=== PATIENT | female | born 1940 | race Caucasian/White ===

== ENCOUNTER → 2019-07-12 10:51 | Outpatient (BNVA) | payer MEDICARE, OTHER, SELFPAY | PROVIDERS: Family Provider Nurse Practitioner Family; PCP Nurse Practitioner Family; Visit Provider Family Medicine | DX: R05 Cough (principal) | CPT/HCPCS: 71046 ==

== ENCOUNTER 2019-08-05 12:16 | Emergency (ER) | payer MEDICARE, OTHER, SELFPAY ==
[2019-08-05 12:16] VITALS: BP 130/79; PULSE 91; RESP 15; TEMP 36.4; O2SAT 89; BMI 22.1
--- NOTE | 2019-08-05 12:29 | W.ED.FALL ---
HPI - Fall General: Chief Complaint: Fall Stated Complaint: Fall Time Seen by Provider: 08/05/19 12:29 History of Present Illness: HPI Narrative: 79 yo female fell at home no LOC. Pt does still have a headache. COmplaining of shoulder and elbow pain as well as neck pain. She did strike her head, but does not think she actually passed out but was stunned. complaint: fall Fall from: standing Associated symptoms-after fall: Denies abdominal pain or chest pain Review of Systems Const: Denies: fever, chills, body aches, change in appetite, fatigue or malaise ENMT: Denies: throat pain, ear pain, nasal discharge or nasal congestion Card: Denies: chest pain, edema, shortness of breath on exertion or shortness of breath when lying down Resp: Denies: shortness of breath, productive cough or non-productive cough GI: Denies: abdominal pain, nausea, vomiting, vomiting blood, coffee grounds in vomit, diarrhea, constipation, bloating, blood in stool or black tarry stool : Denies: flank pain, difficulty urinating, painful urination, urinary frequency or urinary urgency Skin/Breast: Denies: rash or itching PFSH ED PFSH: Statuses (acute, chronic, etc) shown below reflect problem list status as previously entered and may not be historically accurate Medical History Artificial cardiac pacemaker (Acute) COPD (chronic obstructive pulmonary disease) (Acute) Depression with anxiety (Acute) Diabetes (Acute) Essential hypertension, benign (Acute) H/O brain tumor (Acute) H/O reduction of closed fracture (Acute) left wrist 10/23/2015 Hyperlipidemia (Acute) Hypothyroidism (Acute) Lung nodule (Acute) Myasthenia (Acute) Myasthenia gravis with exacerbation, adult form (Acute) Neuropathy (Acute) Normal colonoscopy (Acute) 2013 Pacemaker (Acute) 04/05/2019 Vitamin B 12 deficiency (Acute) Vitamin D deficiency (Acute) Surgical History H/O brain surgery (Acute) 4 x H/O esophagogastroduodenoscopy (Acute) 2013 H/O thyroidectomy (Acute) History of hysterectomy for cancer (Acute) Hx of cholecystectomy (Acute) S/P appy (Acute) Family History Other Cancer Social History Smoking and tobacco status: former smoker Quit status (tobacco): has quit using tobacco Year quit tobacco: 2001 Alcohol intake: never Lives independently: Yes Marital status: / Current gender identity: Female Physical Exam Const: COMMON NORMALS: no apparent distress GENERAL APPEARANCE: cooperative and comfortable ORIENTATION/CONSCIOUSNESS: Yes awake, Yes oriented to person, Yes oriented to place and Yes oriented to time HENMT: COMMON NORMALS: normocephalic, head/scalp atraumatic, hearing grossly normal bilaterally, external ears normal, EAC's normal, TM's normal bilaterally, nasal mucous membranes and turbinates normal, moist oral mucous membranes and oropharynx normal HEAD & SCALP: normocephalic and atraumatic NOSE: nasal mucous membranes and turbinates normal EXTERNAL EAR: Yes external ears normal EXTERNAL AUDITORY CANAL: EAC's normal TYMPANIC MEMBRANE: TM's normal bilaterally Eye: COMMON NORMALS: PERRL, EOMs intact bilaterally, conjunctivae normal and no scleral icterus CONJUNCTIVA: Yes conjunctivae normal PUPIL: Yes PERRL Neck/C-Spine: COMMON NORMALS: full ROM, no lymphadenopathy, supple and no JVD Lymph: LYMPHATIC: no lymphadenopathy noted and no lymphedema noted Resp: COMMON NORMALS: normal respiratory effort, no retractions, no use of accessory muscles and clear to auscultation bilaterally AUSCULTATION: clear to auscultation bilaterally Cardio: COMMON NORMALS: no JVD, regular rate, regular rhythm and no murmurs RATE: regular rate RHYTHM: regular rhythm GI: COMMON NORMALS: soft to palpation and no hepatosplenomegaly AUSCULTATION: Yes normoactive bowel sounds PALPATION: Yes soft, No tender, No guarding and Yes no hepatosplenomegaly Extremity: COMMON NORMALS: normal to inspection, normal capillary refill, no clubbing, cyanosis or edema, no calf tenderness and no pedal edema Neuro: SENSORIUM/ORIENTATION: Yes oriented to person, Yes oriented to place and Yes oriented to time Skin: COMMON NORMALS: no rashes or lesions noted GENERAL SKIN EXAM: no rashes or lesions noted Course ED course: reveiwed xrays, advised tylenol, rest and ice as needed. Vital Signs: Vital signs: Vital Signs Temperature 97.6 F 08/05/19 12:16 Pulse Rate 73 08/05/19 14:56 Respiratory Rate 14 08/05/19 14:56 Blood Pressure 128/73 08/05/19 14:56 Pulse Oximetry 99 08/05/19 14:56 MDM - Fall Lab Data: Labs: Lab Results 08/05/19 08/05/19 08/05/19 Range/Units 12:49 12:49 14:01 WBC 13.1 H (4.0-10.0) 10^3/ uL RBC 4.75 (4.1-5.3) 10^6/u L Hgb 13.5 (11.5-15.3) g/dL Hct 42.2 (37.0-47.0) % MCV 88.8 (81-99) fL MCH 28.4 (28.0-34.0) pg MCHC 32.0 (30.0-36.0) g/dL RDW 13.4 (12.1-15.1) % Plt Count 214 (130-400) 10^3/c mm MPV 9.5 (7.4-10.4) fL Neut % (Auto) 38.2 % Lymph % (Auto) 52.8 % [place] % (Auto) 6.9 % Eos % (Auto) 1.6 % Baso % (Auto) 0.3 % Neut # (Auto) 5.0 (1.8-7.7) 10^3/u L Lymph # (Auto) 6.9 H (0.8-4.8) 10^3/u L [place] # (Auto) 0.9 (0.2-0.9) 10^3/u L Eos # (Auto) 0.2 (0.0-0.8) 10^3/u L Baso # (Auto) 0.0 (0.0-0.1) 10^3/u L Nucleated RBC % (a uto) 0 % Nucleated RBCs # 0.0 /100WBC Sodium 137 (136-145) mmol/L Potassium 4.8 (3.5-5.1) mmol/L Chloride 101 (98-107) mmol/L Carbon Dioxide 24 (22-29) mmol/L Anion Gap 16.8 (5-19) BUN 16 (8-23) mg/dL Creatinine 0.6 (0.5-0.9) mg/dL Glucose 130 H (74-106) mg/dL Calcium 9.6 (8.5-10.5) mg/dL Total Bilirubin 0.4 (0.15-1.2) mg/dL AST 22 (0-32) U/L ALT 25 (0-33) U/L Alkaline Phosphata se 73 (35-105) IU/L Total Protein 7.2 (6.6-8.7) g/dL Albumin 4.7 (3.5-5.2) g/dL Globulin 2.5 (1.3-4.6) g/dL Urine Color Yellow (Yellow) Urine Appearance Clear (CLEAR) Urine pH 5 (5-7) Ur Specific Gravit y 1.015 (1.005-1.030) Urine Protein Neg (Negative) Urine Glucose (UA) 4+ H (Normal) Urine Ketones Negative (Negative) Urine Occult Blood Neg (Negative) Urine Nitrate Negative (Negative) Urine Bilirubin Neg (NEGATIVE) Urine Urobilinogen Norm (Negative) mg/dL Ur Leukocyte Sofía ase Negative (Negative) Discharge Plan Discharge Patient Disposition: Home, Self-Care Clinical Impression: Fall Condition: Stable Prescriptions: No Action gabapentin 300 mg capsule 300 mg PO BID RF: 0 tolterodine [Detrol] 2 mg tablet 2 mg PO ONCE RF: 0 Invokana 300 mg tablet 300 mg PO QAM RF: 0 lisinopril 2.5 mg tablet 2.5 mg PO ONCE RF: 0 albuterol sulfate [Proventil HFA] 90 mcg/actuation HFA aerosol inhaler 2 puff INHALATION QID RF: 0 simvastatin 20 mg tablet 20 mg PO ONCE RF: 0 Levemir FlexTouch U-100 Insuln 100 unit/mL (3 mL) insulin pen 40 unit SUBCUT ONCE RF: 0 fluticasone propion-salmeterol [Advair Diskus] 250-50 mcg/dose blister with device 1 inh INHALATION BID RF: 0 fluticasone propionate [Flonase Allergy Relief] 50 mcg/actuation spray,suspension 2 spray INTRANASAL ONCE RF: 0 Victoza 2-Wilson 0.6 mg/0.1 mL (18 mg/3 mL) pen injector 1.2 mg SUBCUT Q24H RF: 0 lidocaine [Lidoderm] 5 % adhesive patch,medicated 1 patch TOPICAL .teto 12 hours RF: 0 furosemide 20 mg tablet 20 mg PO QAM PRN (Reason: edema) RF: 0 duloxetine 30 mg capsule,delayed release(DR/EC) 60 mg PO ONCE RF: 0 promethazine-DM 6.25-15 mg/5 mL syrup 5 ml PO Q6H Qty: 160 RF: 0 levofloxacin [Levaquin] 750 mg tablet 750 mg PO Q24H Qty: 10 RF: 0 (DME) Compact Compressor Nebulizer Misc See Rx Instructions .ROUTE .MEDSUPPLY Qty: 1 RF: 0 levothyroxine 100 mcg tablet 100 mcg PO DAILY Qty: 90 RF: 0 metformin 500 mg tablet 1,000 mg PO BID Qty: 180 RF: 0 (DME) Compact Compressor Nebulizer Misc See Rx Instructions .ROUTE .MEDSUPPLY Qty: 1 RF: 0 Discharge Orders: Discharge Order (Routine); Ordered 08/05/19 Ordered By: Israel Garza Referrals: Tina Bowen APN [Primary Care Provider] - Discharge Diet: Usual diet Discharge Activity: Resume usual activity Discharge Date/Time: 08/05/19 14:57 Coding Level of Care Code ED Change Control Manager for Chg Fwd Exam Problem Focused
--- NOTE | 2019-08-05 12:31 | XRR_ITS ---
PROCEDURE INFORMATION: Exam: XR Cervical Spine, 2 or 3 Views Exam date and time: 08/05/2019 1:25 PM Age: 79 years old Clinical indication: Pain and injury or trauma; Fall; Initial encounter; Blunt trauma; Neck pain; Injury date: 08/05/19; Additional info: Fall, neck pain TECHNIQUE: Imaging protocol: XR of the cervical spine, 2 or 3 views. COMPARISON: CT Cervical Spine wo* [id number] 08/20/2015 3:18 PM FINDINGS: Vertebrae: The bones are diffusely osteopenic. The cervical vertebral bodies maintain overall height and alignment. Prior C1 through C3 laminectomies. The atlantodens interval is not widened. Disc space narrowing most prominently at C6-C7. There is multilevel bilateral facet arthropathy. No acute fracture. Soft tissues: No prevertebral soft tissue swelling. XR/XR cervical spine 3V* [id number] IMPRESSION: 1. No acute osseous abnormality. 2. Multilevel degenerative and postoperative changes.
--- NOTE | 2019-08-05 12:32 | CT_ITS ---
WS: [id number] CT HEAD NONCONTRAST HISTORY: fall TECHNIQUE: Contiguous axial imaging performed through the brain in 2.5 mm imaging. Bone and soft tiss ue windows. Sagittal and coronal reformats reviewed. All CT scans at [facility] use at ast one of these dose optimization techniques: automated exposure control; mA and/or kV adjustment pe r patient size (includes targeted exams where dose is matched to clinical indication); or iterative r econstruction. DLP: 802.41 mGy.cm COMPARISON: 03/19/2019 at 03/03/2019 No acute intracranial hemorrhage, midline shift or mass effect. No atrophy or prior infarcts or herniation. Mild chronic vascular ischemic disease. Increased densit y in the LEFT cerebellum is been present on prior studies and may represent some calcium. Ventricles: Normal size with no hydrocephalus. Patient has a known, long-standing and longus stability or to the bone formation involving the cranio cervical junction on the LEFT. Calcific or osseous density extends medially to abut the LEFT lateral upper cervical cord. Long-term stability with no progression. Paranasal sinuses: As visualized are clear. Mastoid air cells: Well pneumatized. Calvarium and scalp: No interval change. Soft tissue edema over the posterior RIGHT parietal bone. CT/CT head wo con* [id number] IMPRESSION: 1. No acute intracranial hemorrhage or edema. 2. Small amount of skeletal edema over the RIGHT parietal region. 3. Stable hypertrophic bone formation involving the LEFT craniocervical juncti on.
--- NOTE | 2019-08-05 12:38 | XRR_ITS ---
PROCEDURE INFORMATION: Exam: XR Left Elbow Exam date and time: 08/05/2019 1:25 PM Age: 79 years old Clinical indication: Pain and injury or trauma; Fall; Initial encounter; Blunt trauma (contusions or hematomas; Elbow; Left; Injury date: 08/05/19; Additional info: Fall pain TECHNIQUE: Imaging protocol: XR Left elbow. Views: 3 or more views. COMPARISON: No relevant prior studies available. FINDINGS: Limitations: The lateral view is not a true lateral view. Bones/joints: An acute fracture is not identified. There is slight deformity of the radial head which may be due to a prior, now healed fracture. No dislocation. Cannot exclude an anterior or posterior fat pad sign as the lateral view is not a true lateral view. Soft tissues: There is soft tissue calcification at the medial humeral epicondyle which can be due to prior soft tissue injury. XR/XR elbow LT min 3V* [id number] IMPRESSION: No acute fracture or dislocation identified. If the patient continues to have pain repeat radiographs with a true lateral view would be warranted.
--- NOTE | 2019-08-05 12:38 | XRR_ITS ---
PROCEDURE INFORMATION: Exam: XR Left Shoulder Exam date and time: 08/05/2019 1:25 PM Age: 79 years old Clinical indication: Pain and injury or trauma; Fall; Initial encounter; Blunt trauma (contusions or hematomas; Shoulder; Bilateral; Injury date: 08/05/19; Additional info: Fall pain TECHNIQUE: Imaging protocol: XR Left shoulder. Views: 2 or more views. COMPARISON: No relevant prior studies available. FINDINGS: Bones/joints: No acute fracture. No dislocation. There are old left rib fractures. Soft tissues: No acute soft tissue abnormality. XR/XR shoulder LT min 2V* [id number] IMPRESSION: No acute osseous abnormality.
--- NOTE | 2019-08-05 12:38 | XRR_ITS ---
PROCEDURE INFORMATION: Exam: XR Right Shoulder Exam date and time: 08/05/2019 1:25 PM Age: 79 years old Clinical indication: Pain and injury or trauma; Fall; Initial encounter; Blunt trauma (contusions or hematomas; Shoulder; Bilateral; Injury date: 08/05/19; Additional info: Fall pain TECHNIQUE: Imaging protocol: XR Right shoulder. Views: 2 or more views. COMPARISON: CR Shoulder 2+ views RIGHT* [id number] 08/20/2015 3:33 PM FINDINGS: Bones/joints: No acute fracture. No dislocation. Suspect an old, healed distal clavicular fracture. Soft tissues: No acute soft tissue abnormality. XR/XR shoulder RT min 2V* [id number] IMPRESSION: No acute osseous abnormality.
[2019-08-05 13:01] LABS: Basophils % 0.3 %; Eosinophils # 0.2 10^3/uL (0.0-0.8); Eosinophils % 1.6 %; Hematocrit 42.2 % (37.0-47.0); Hemoglobin 13.5 g/dL (11.5-15.3); Lymphocytes # 6.9 10^3/uL (0.8-4.8); Lymphocytes % 52.8 %; Mean Corpuscular Hemoglobin 28.4 pg (28.0-34.0); Mean Corpuscular Volume 88.8 fL (81-99); Mean Platelet Volume 9.5 fL (7.4-10.4); Monocytes # 0.9 10^3/uL (0.2-0.9); Monocytes % 6.9 %; Neutrophils % 38.2 %; Nucleated Red Blood Cells % 0 %; Platelet Count 214 10^3/cmm (130-400); Red Blood Count 4.75 10^6/uL (4.1-5.3); Red Cell Distribution Width 13.4 % (12.1-15.1); White Blood Count 13.1 10^3/uL (4.0-10.0)
[2019-08-05 13:13] LABS: Alanine Aminotransferase 25 U/L (0-33); Albumin Level 4.7 g/dL (3.5-5.2); Alkaline Phosphatase 73 IU/L (35-105); Anion Gap 16.8 (5-19); Aspartate Amino Transferase 22 U/L (0-32); Blood Urea Nitrogen 16 mg/dL (8-23); Calcium 9.6 mg/dL (8.5-10.5); Carbon Dioxide 24 mmol/L (22-29); Chloride 101 mmol/L (98-107); Globulin 2.5 g/dL (1.3-4.6); Glucose 130 mg/dL (74-106); Potassium 4.8 mmol/L (3.5-5.1); Sodium 137 mmol/L (136-145); Total Bilirubin 0.4 mg/dL (0.15-1.2); Total Protein 7.2 g/dL (6.6-8.7)
--- NOTE | 2019-08-05 13:31 | CT_ITS ---
WS: [id number] CT CERVICAL SPINE HISTORY: neck pain TECHNIQUE: Contiguous 2.5 mm axial imaging performed through the entire cervical spine. Sagittal and coronal reformats also performed. All CT scans at [facility] use at least one of these do se optimization techniques: automated exposure control; mA and/or kV adjustment per patient size (inc ludes targeted exams where dose is matched to clinical indication); or iterative reconstruction. DLP: 352.01 mGy.cm COMPARISON: 08/20/2015 No change in appearance of the vertebral bodies or alignment since the prior study. Advanced degenera tive changes in the disc of C6-7. Craniocervical junction is intact. Again noted is a large laminecto my defect on the LEFT at C1, C2 and C3 with fusion. The distribution of the osseous fusion is simila r to the prior study. There is mild mass effect upon the LEFT lateral brainstem by the fusion. Mild i nferior displacement of cerebellar tonsils. Similar to the prior studies. Vertebral body osteophytes and facet arthropathy throughout the cervical spine. No significant progre ssion of disease. No fractures. Lung apices are clear. CT/CT cervical spin wo con* [id number] IMPRESSION: 1. No cervical spine fracture. 2. Stable laminectomy defects on the LEFT from C1 through C3 and stable osseou s fusion. 3. Multilevel facet joint arthropathy and spondylosis.
[2019-08-05 13:32] LABS: Slide Review Slide Review Perform
[2019-08-05 14:21] LABS: Add Urine Microscopic? NO
[2019-08-05 14:30] LABS: Glucose Urine UA 4+ (Normal); Protein Urine Neg (Negative); Specific Gravity, Urine 1.015 (1.005-1.030); Urine Appearance Clear (CLEAR); Urine Color Yellow (Yellow); pH Urine 5 (5-7)
[2019-08-05 14:31] LABS: Bilirubin Urine Neg (NEGATIVE); Blood Urine Neg (Negative); Ketones Urine Negative (Negative); Leukocyte Esterase Urine Negative (Negative); Nitrate Urine Negative (Negative); Urobilinogen Urine Norm (Negative)
[2019-08-05 14:56] VITALS: BP 128/73; PULSE 73; RESP 14; O2SAT 99
== END 2019-08-05 14:57 | disposition home or self-care (01) ==
PROVIDERS: Emergency Provider Family Medicine; Family Provider Nurse Practitioner Family; PCP Nurse Practitioner Family
DX: M25.519 Pain in unspecified shoulder (principal); M25.529 Pain in unspecified elbow; M54.2 Cervicalgia; Z79.4 Long term (current) use of insulin; W19.XXXA Unspecified fall, initial encounter; Z95.0 Presence of cardiac pacemaker; J44.9 Chronic obstructive pulmonary disease, unspecified; I10 Essential (primary) hypertension; E78.5 Hyperlipidemia, unspecified; E03.9 Hypothyroidism, unspecified; E11.40 Type 2 diabetes mellitus with diabetic neuropathy, unspecified; Z87.891 Personal history of nicotine dependence
CPT/HCPCS: 36415; 70450; 72040; 72125; 73030; 73080; 80053; 81003; 85025; 99281

== ENCOUNTER → 2019-10-29 13:07 | Outpatient (BNVA) | payer MEDICARE, OTHER, SELFPAY | PROVIDERS: Family Provider Nurse Practitioner Family; PCP Nurse Practitioner Family; Visit Provider Nurse Practitioner Family | DX: E11.9 Type 2 diabetes mellitus without complications (principal); E53.8 Deficiency of other specified B group vitamins; E55.9 Vitamin D deficiency, unspecified; E03.9 Hypothyroidism, unspecified; G62.9 Polyneuropathy, unspecified; I10 Essential (primary) hypertension; F41.8 Other specified anxiety disorders; J44.9 Chronic obstructive pulmonary disease, unspecified; R25.2 Cramp and spasm; E78.2 Mixed hyperlipidemia | CPT/HCPCS: 80053; 80061; 82306; 82607; 83036; 83735; 84443; 85025 ==

== ENCOUNTER → 2019-11-26 17:29 | Outpatient (BNVA) | payer MEDICARE, OTHER, SELFPAY | PROVIDERS: Family Provider Nurse Practitioner Family; PCP Nurse Practitioner Family; Visit Provider Nurse Practitioner Family | DX: M25.552 Pain in left hip (principal); M54.5 Low back pain | CPT/HCPCS: 80053; 85651; 86038; 86140; 86431 ==

== ENCOUNTER → 2019-11-27 14:28 | Outpatient (BNVA) | payer MEDICARE, OTHER, SELFPAY | PROVIDERS: Family Provider Nurse Practitioner Family; PCP Nurse Practitioner Family; Visit Provider Nurse Practitioner Family | DX: M25.552 Pain in left hip (principal); M54.5 Low back pain; M85.88 Other specified disorders of bone density and structure, other site; N20.0 Calculus of kidney | CPT/HCPCS: 72100; 73502 ==

== ENCOUNTER → 2020-02-10 11:44 | Outpatient (BNVA) | payer MEDICARE, OTHER, SELFPAY | PROVIDERS: Family Provider Nurse Practitioner Family; PCP Nurse Practitioner Family; Visit Provider Internal Medicine Medical Oncology | DX: D72.820 Lymphocytosis (symptomatic) (principal) | CPT/HCPCS: 80053; 83615; 85007; 85025 ==

== ENCOUNTER 2020-02-12 14:53 | Outpatient (CLI) | payer MEDICARE, OTHER, SELFPAY ==
--- NOTE | 2020-02-12 16:20 | XRR_ITS ---
PROCEDURE INFORMATION: Exam: XR Abdomen, 2 Views Exam date and time: 02/12/2020 4:39 PM Age: 79 years old Clinical indication: Constipation; Abdominal pain; Generalized; Prior surgery; Surgery type: Gb, hyst, appy; Patient HX: HX of brain tumor, cervical cancer and thyroid cancer; Additional info: Left upper quandrant abdominal pain TECHNIQUE: Imaging protocol: XR of the abdomen. Views: 2 Views. COMPARISON: CR XR KUB [id number] 03/14/2017 12:29 PM FINDINGS: Gastrointestinal tract: There is nonspecific bowel gas pattern with some mildly dilated small bowel loops on the right side of the abdomen which could represent some mild ileus. There is a large amount of fecal material within the descending colon and rectum consistent with the history of constipation. Intraperitoneal space: No free air is identified. Organs: There are surgical clips in the right upper quadrant from cholecystectomy. Bones/joints: There are degenerative changes in the spine. XR/XR abdomen min 2V [id number] IMPRESSION: Findings most likely represent constipation and mild ileus.
--- NOTE | 2020-02-15 15:35 | ONC FU_ITS ---
Dr. Rendon Patient Follow-Up Note Patient: Felicitas Augustine Unit #: [id number]: 1940 Dicatated By: Satish Rendon M.D.Date of Visit:Feb 12, 2020 Onc Med Follow-up/Prog Note Chief Complaint: Chronic lymphocytic leukemia. History of Present Illness: This is a 79 year-old woman with chronic leukocytic leukemia. I had seen her initially on 05/02/2019 in regard to a persistent lymphocytosis. It had been noted during a hospitalization for syncope in March 2019. Her CBC at that time showed normal hemoglobin at 13.9 g with white blood cell count 14,000 and platelet count 233,000. The differential included 32% neutrophils, 59% lymphocytes, 6% monocytes, and 1% eosinophils. In reviewing her record in [facility], she was noted to have had at least a slight lymphocytosis dating as far back as 2013. Her evaluation in April 2019 included CBC showing hemoglobin 13.9 g with white blood cell count 13,600 and platelet count 218,000. The absolute lymphocyte count was 8200. Her comprehensive metabolic profile was unremarkable. LDH was in normal range at 201 U/L. Her whole blood flow cytometry showed a monotypic B-cell population which was positive for CD19, CD20, and CD5 and negative for CD10 and CD23. The phenotype was felt to be consistent with chronic lymphocytic leukemia/small lymphocytic lymphoma. By clinical evaluation, she appeared to have early stage disease (Pickens stage 0), and observation/expectant management was recommended. 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 She has hyperlipidemia and type II diabetes with peripheral neuropathy, and she has undergone placement of a permanent pacemaker for cardiac syncope. She had been diagnosed with myasthenia gravis approximately 6 years ago, but that diagnosis had more recently been disputed. Other medical illnesses include COPD, vitamin B12 deficiency, and vitamin D deficiency. She also had a suspected TIA/stroke. She has a history of smoking for 30 years, less than 1 pack of cigarettes daily. She quit smoking in 1999. She is seen for a follow-up visit. She indicates that during the past week she has developed a lot of new pain, mostly in her feet in the metatarsal area. It is described as a burning pain, and it is worse at night. She also has pain and swelling in her hands around the knuckles and in her wrists. She complains that she is tired, and she sits a lot. She mostly gets around in a motorized wheelchair. She does try to use a walker. Her ECOG score is 3. Her appetite is not so good. She has not had fever or night sweats, but she does complain that she gets hot at night. 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 She has cough associated with phlegm in her throat. She does not complain of shortness of breath or chest pain. She has been having nausea and gas, and she also has acid reflux. She says her stomach has been hurting, especially in the left upper quadrant area. She has constipation and hard stools, though she has been taking senna and Dulcolax. She has frequent urination. She recently has had headaches. She has poor balance. She has numbness/tingling in her hands and feet. Medications: Advair Diskus 1 Puff(s) (of 250-50 mcg/dose) Aerosol Powder, Breath Activated Inhalation b.i.d., Albuterol Sulfate 1 Puff(s) (of 108 (90 base) mcg/act) Aerosol Powder, Breath Activated Inhalation PRN, Detrol 1 Tablet (of 2 mg) Oral daily, DULoxetine HCl 2 Capsule (of 30 mg) Capsule Delayed Release Particles Oral daily, Fiber 1 Powder Oral PRN, Flonase 2 [place](s) (of 50 mcg/act) Suspension Nasal daily, Furosemide 1 Tablet (of 20 mg) Oral daily PRN, Gabapentin 1 Capsule (of 300 mg) Oral b.i.d., Invokana 1 Tablet (of 300 mg) Oral daily, Levemir FlexTouch 40 Units (of 100 Units/mL) Subcutaneous daily, Levothyroxine Sodium 1 Tablet (of 100 mcg) Oral daily, Lidocaine 2 Patch(es) (of 5 %) Patch Topical daily, Lisinopril 1 Tablet (of 2.5 mg) Oral daily, MiraLax 1 Pack Oral PRN, Potassium Chloride ER (10 meq) Tablet, controlled release Oral Take as Directed, Proventil HFA 2 Puff(s) (of 108 (90 base) mcg/act) Aerosol, solution Inhalation four times a day, Simvastatin 1 Tablet (of 20 mg) Oral daily, Victoza 1 (18 mg/3mL) Subcutaneous daily Allergies: Pneumovax 23 and Sulfa Antibiotics. Review of Systems: Constitutional - She has been feeling tired. She gets around with a motorized wheelchair and she is mainly sedentary at home. Her son is her full-time caregiver. Her appetite has decreased and weight is stable. No fever or night sweats. She has occasional hot flashes at night. ECOG score is 3, ENMT - No sinus congestion/drainage. No mouth sores. No sore throat or difficulty swallowing. She says she has a paralyzed vocal cord, Hematologic/Lymphatic - She has a lot of bruising, Respiratory - No shortness of breath. She has cough associated with phlegm in her throat. No pleuritic pain or hemoptysis, Cardiovascular - No angina pain. No palpitations, Gastrointestinal - She has been having nausea for about one week. No vomiting. She has been having frequent belching. No heartburn or acid reflux. No diarrhea. She has been having constipation. No blood in the stool or black stools. She has been having abdominal pain/cramping, Genitourinary (F) - No dysuria or hematuria. She has urinary frequency both day and night. No urgency or incontinence, Musculoskeletal - She is having generalized joint pain, Integumentary - No skin complications, Neurologic - She has a headache. She has poor balance. She has numbness and tingling in her hands and feet, Psychiatric - She has anxiety/depression. She has not been sleeping well lately. Vital Signs: Performed on Feb 12, 2020 15:06 Height - 62.50 in Weight - lbs Temperature - 9.3 F (LOW) Pulse - 67 /min Respiration - 18 /min BP - 140/68 mm(hg) O2 Sat - 96 % Pain - 4 Physical Examination: Constitutional - She appears somewhat weak generally, Eyes - Sclerae nonicteric. Conjunctivae clear, ENMT - No lesions noted in the oral cavity, Hematologic/Lymphatic - No cervical, clavicular, or axillary adenopathy, Respiratory - Lungs sound clear with some decrease in air movement bilaterally, Cardiovascular - Heart rhythm is regular. There is no murmur, gallop, or rub noted, Abdomen - Mildly distended and tympanic. Liver and spleen are not enlarged. There is no abdominal mass or ascites noted and there is no inguinal adenopathy, Extremities - No edema. She has good dorsalis pedis pulses bilaterally, Neurologic - No focal neurologic deficits noted. Lab/Imaging: CBC shows hemoglobin 15.1 g, white blood cell count 17,500, and platelet count 210,000. The absolute lymphocyte count is 13,300. Comprehensive metabolic profile is unremarkable. LDH is slightly elevated at 223/214 U/L. Impression: 1. Patient with mild but persistent lymphocytosis. Whole blood flow cytometry in April 2019 was consistent with chronic lymphocytic leukemia /small lymphocytic lymphoma. By clinical evaluation she has early stage disease (Pickens stage 0). 2. She has had multiple chronic complaints, the most significant of which have been weakness/fatigue and double vision. She was previously diagnosed with myasthenia gravis, but that diagnosis had more recently been disputed. Her other medical illnesses include: 3. Hyperlipidemia. 4. Type II diabetes with peripheral neuropathy. 5. She has had suspected TIA/stroke. 6. COPD. 7. She had recently started replacement therapy for B12 deficiency. 8. She also has vitamin D deficiency. 9. She had multiple procedures for resection of brainstem meningioma in the remote past. 10. She underwent hysterectomy/bilateral salpingo-oophorectomy for cervical cancer. 11. She underwent total thyroidectomy for multiple papillary microcarcinomas in 2007. She had subsequent radioactive iodine ablation. 12. She underwent placement of permanent pacemaker for cardiac syncope on 04/05/2019. With early stage, asymptomatic chronic lymphocytic leukemia, observation/expectant management was recommended. Thus far during follow-up there has been only a slight further increase in her lymphocyte count. She continues to have multiple complaints, most of which are chronic. The chronic lymphocytic leukemia still appears to be in early stage and not overtly symptomatic. Plan: She will continue on observation/expectant management for the chronic lymphocytic leukemia. She will be scheduled for a follow-up visit in 6 months. In the meantime, I did suggest that she try increasing her senna/docusate to 2 tablets twice a day, I also suggested that she try increasing her bedtime dose of gabapentin, as it does appear likely that she is having neuropathy pain during the night. Signed By: Satish Rendon M.D. <<Signature on File>>
== END 2020-02-12 14:54 | disposition home or self-care (01) ==
LOC: ONCMED 14:58
PROVIDERS: PCP Nurse Practitioner Family; Visit Provider Internal Medicine Medical Oncology
DX: C91.10 Chronic lymphocytic leukemia of B-cell type not having achieved remission (principal); R10.12 Left upper quadrant pain; E11.40 Type 2 diabetes mellitus with diabetic neuropathy, unspecified; E78.5 Hyperlipidemia, unspecified; J44.9 Chronic obstructive pulmonary disease, unspecified; E55.9 Vitamin D deficiency, unspecified; E89.0 Postprocedural hypothyroidism; Z85.41 Personal history of malignant neoplasm of cervix uteri; Z90.710 Acquired absence of both cervix and uterus; Z90.722 Acquired absence of ovaries, bilateral; Z85.850 Personal history of malignant neoplasm of thyroid; Z95.0 Presence of cardiac pacemaker
CPT/HCPCS: 74019; G0463

== ENCOUNTER 2020-02-26 14:57 | Observation (INO) | payer MEDICARE, OTHER, SELFPAY ==
[2020-02-26 15:02] VITALS: BMI 24.4
[2020-02-26 15:06] VITALS: BP 130/69; PULSE 95; RESP 18; TEMP 36.6; O2SAT 98
--- NOTE | 2020-02-26 15:16 | CT_ITS ---
WS: [id number] CT HEAD NONCONTRAST HISTORY: cva SYMPTOMS TECHNIQUE: Contiguous axial imaging performed through the brain in 2.5 mm imaging. Bone and soft tiss ue windows. Sagittal and coronal reformats reviewed. All CT scans at [facility] use at ast one of these dose optimization techniques: automated exposure control; mA and/or kV adjustment pe r patient size (includes targeted exams where dose is matched to clinical indication); or iterative r econstruction. DLP: 1350.82 mGy.cm COMPARISON: 08/05/2019 No acute intracranial hemorrhage, midline shift or mass effect. Mild atrophy and chronic ischemic disease. Hypertrophic ossific process involving the LEFT occipital condyle encroaching upon the LEFT cerebellum and brainstem. Similar appearance as compared to prior studies. No progression. Ventricles: Normal size with no hydrocephalus. Paranasal sinuses: As visualized are clear. Mastoid air cells: Well pneumatized. Calvarium and scalp: Skull is intact with no soft tissue edema or swelling. CT/CT head wo con* [id number] IMPRESSION: 1. No acute intracranial hemorrhage or edema. 2. Stable hypertrophic bone formation centered near the LEFT occipital condyle encroaching upon the LEFT cerebellum and brainstem is similar to prior studies without progression. No acute interval change.
--- NOTE | 2020-02-26 15:16 | XR_ITS ---
WS: [id number] EXAM: AP CHEST: PORTABLE UPRIGHT DATE OF EXAM: 02/26/2020, 1543 hours COMPARISON: Chest x-ray from 07/12/2019 HISTORY: Patient is 79 years old with right-sided facial and head numbness. History of leukemia. Cardiac arrhy thmia with prior pacemaker placement. FINDINGS: The cardiac silhouette is normal in size. The mediastinal contours are similar. Calcified plaque i n the aorta. Left subclavian dual lead pacer remains in stable position. The pulmonary vascularity is normal. Chronic lung changes are demonstrated. Calcified granuloma outer upper mid right chest. S ome degree of fibrosis felt to be present. No area of consolidation. There is no effusion or pneumot horax. Overall bone density is decreased. Scattered changes of arthritis are seen in the spine. XR/XR chest 1V portable [id number] IMPRESSION: Chronic lung changes. No acute pulmonary disease.
--- NOTE | 2020-02-26 15:17 | ECG_ITS ---
[facility] Test Date: 2020-02-26 Pat Name: Felicitas Augustine Department: Room: Gender: Female Girl Friday: : 1940 Requested By: Jo Ann Calix Order Number: [id number] Karma MD: Gary Branch M.D. Measurements Intervals [place] Rate: 67 P: 106 IN: 183 QRS: -65 QRSD: 93 T: 70 QT: 406 QTc: 432 Interpretive Statements ELECTRONIC ATRIAL PACEMAKER LEFT AXIS DEVIATION [QRS AXIS < -30] LOW QRS VOLTAGE IN PRECORDIAL LEADS [QRS DEFLECTION < 1.0 mV IN CHEST LEADS] PATTERN CONSISTENT WITH PULMONARY DISEASE INCOMPLETE RIGHT BUNDLE BRANCH BLOCK [90+ ms QRS DURATION, TERMINAL R IN V1/V2, 40+ ms S IN I/aVL/V4/V5/V6] When compared to the prior EKG there is no significant change Electronically Signed On 02-26-2020 20:21:54 CDT by Gary Branch M.D. [id number]
--- NOTE | 2020-02-26 15:17 | W.ED.NEUROSD ---
HPI - Neuro Symptoms/Deficit General: Chief Complaint: Neuro Symptoms/Deficit Stated Complaint: headache/numbness/blurry vision Time Seen by Provider: 02/26/20 15:10 Source: patient Mode of arrival: ambulatory Limitations: no limitations History of Present Illness: HPI Narrative: Felicitas is a nice 79-year-old female who comes in complaining of head tingling. She states the tingling sensation was present upon awakening and then as the day is gone on she has had a strange sensation of the right side of her face and tongue. Patient states that the face and tongue sensation started about 10:00 with the tingling was present upon awakening. At one point the patient was also near syncopal. Patient has had a history of syncopal spells this time she did not pass out all the way. She denies any chest pain, shortness of breath, palpitations but does feel lightheaded and dizzy when she stands up quickly. Associated symptoms: Reports headache(s); Deny chest pain, diaphoresis, malaise, nausea, syncope, vertigo or vomiting Review of Systems Const: Denies: fever(s), chills, body aches, fatigue, malaise or diaphoresis Eyes: Denies: change in vision, blurry vision, photophobia, eye discomfort, eye discharge or eye redness ENMT: Denies: throat pain, odynophagia, hoarseness, swelling of lips/tongue, ear or mastoid pain, ear discharge, change in hearing or nasal discharge Card: Reports: pre-syncope; Denies: chest pain, palpitations, irregular heart rhythm, edema, lightheadedness, syncope, dyspnea on exertion or orthopnea Resp: Denies: dyspnea, productive cough, non-productive cough, wheezing, hemoptysis or chest congestion GI: Denies: abdominal pain, nausea, vomiting, hematemesis, coffee ground emesis, heartburn, diarrhea, constipation, GI cramping, hematochezia or melena : Denies: flank pain, dysuria, urinary frequency, urinary urgency or hematuria Musc: Denies: neck pain, back pain, extremity pain, extremity swelling, joint pain, joint swelling, joint redness, joint warmth or joint stiffness Skin/Breast: Denies: rash, pruritus, erythema or skin tenderness Neuro: Reports: headache(s) and sensory changes; Denies: numbness in extremities, weakness in extremities, lack of coordination, difficulty walking, dizziness, vertigo, confusion, Slurred speech present or seizure-like activity [place]/Lymph: Denies: easy bruising, easy bleeding, petechiae, purpura or enlarged lymph nodes All/Imm: Denies: urticaria, throat swelling, tongue swelling, facial swelling or acute wheezing PFSH ED PFSH: Medical History Artificial cardiac pacemaker COPD (chronic obstructive pulmonary disease) Depression with anxiety Diabetes Essential hypertension, benign H/O brain tumor H/O reduction of closed fracture left wrist 10/23/2015 Hyperlipidemia Hypothyroidism Leg swelling Lung nodule Myasthenia Myasthenia gravis with exacerbation, adult form Neuropathy Normal colonoscopy 2013 Pacemaker 04/05/2019 Vitamin B 12 deficiency Vitamin D deficiency Surgical History H/O brain surgery 4 x H/O esophagogastroduodenoscopy 2013 H/O thyroidectomy History of hysterectomy for cancer Hx of cholecystectomy S/P appy Family History Other Cancer Social History Smoking and tobacco status: former smoker Quit status (tobacco): has quit using tobacco Year quit tobacco: 2001 Alcohol intake: never Lives independently: Yes Marital status: / Current gender identity: Female NIH stroke score NIHSS: Level Of Consciousness - 1a: 0 Level Of Consciousness Questions - 1b: Both Correct Level Of Consciousness Commands - 1c: Both Correct Best Gaze - 2: Normal Visual Virk - 3: No Visual Loss Facial Palsy - 4: Normal Motor Arm Right - 5: Drift Motor Arm Left - 5: No Drift Motor Leg Right - 6: Drift Motor Leg Left - 6: No Drift Limb Ataxia - 7: Present In One Limb Sensory - 8: Mild To Moderate Loss Best Language - 9: No Aphasia Dysarthia - 10: Normal Extinction And Inattention - 11: 0 Score: Total Score: 4 Physical Exam Const: COMMON NORMALS: no acute distress, patient oriented x3, no limitations, healthy appearing and well nourished GENERAL APPEARANCE: cooperative, well kempt and well developed HENMT: COMMON NORMALS: normocephalic, atraumatic, external ears normal, EAC's normal and Normal external nose present HEAD & SCALP: normal to inspection, normocephalic and atraumatic FACE & SINUS: normal facial exam and face symmetric NOSE: Normal external nose present and Normal nares present EXTERNAL EAR: Yes external ears normal EXTERNAL AUDITORY CANAL: EAC's normal MOUTH: Normal oral and palatal mucosa present, lip normal and tongue normal Eye: COMMON NORMALS: Equal, round and reactive pupils present and conjunctivae normal GENERAL EYE: appearance normal, both eyes and all related structures ALIGNMENT: Yes alignment normal PERIORBITAL: periorbital findings normal EYELID: eyelids normal CONJUNCTIVA: Yes conjunctivae normal SCLERA: sclerae normal PUPIL: Yes Equal, round and reactive pupils present Neck/C-Spine: COMMON NORMALS: full ROM, no lymphadenopathy, supple, no meningeal signs and no JVD GENERAL: Yes normal visual inspection and Yes trachea midline Chest: COMMONS NORMALS: normal inspection of the chest and normal palpation of entire chest wall Resp: COMMON NORMALS: normal respiratory effort, No retractions, No use of accessory muscles and clear to auscultation bilaterally EFFORT & INSPECTION: Yes able to speak in complete sentences and Yes symmetric chest movement AUSCULTATION: clear to auscultation bilaterally, no crackles, no rales, no rhonchi and no wheezes Cardio: COMMON NORMALS: no JVD, regular rate, regular rhythm, S1 normal heart sound present and S2 normal heart sound present RATE: regular rate RHYTHM: regular rhythm HEART SOUNDS: S1 normal heart sound present, S2 normal heart sound present, no click, no gallops, no murmurs, no rubs and abnormal split S2 GI: COMMON NORMALS: Soft to palpation and No hepatosplenomegaly present PALPATION: Yes Soft to palpation, No Tenderness to palpation present (GI), No Guarding due to palpation present (GI), No Rigid due to palpation, Yes No hepatosplenomegaly present, No Hernia present, No Palpable mass present and No Pulsatile mass present : COMMON NORMALS: Yes no CVA tenderness BLADDER/KIDNEY EXAM: Yes no CVA tenderness EXTERNAL FEMALE EXAM: No Hernia present Back/Pelvis: COMMON NORMALS: no CVA tenderness, thoracic and lumbar spine normal to inspection, no thoracic nor lumbar tenderness and thoraco-lumbar ROM normal Extremity: COMMON NORMALS: normal to inspection, full ROM, capillary refill normal, no joint enlargement, no clubbing, cyanosis or edema and no calf tenderness Neuro: COMMON NORMALS: patient oriented x3, moves all extremities, no focal motor deficits and no sensory deficits noted MENINGEAL SIGNS: Yes no meningeal signs SPEECH: speech normal Psych: COMMON NORMALS: mental status grossly normal, Normal thought process present, cooperative, normal affect, speech normal and activity/motor behavior normal APPEARANCE: Yes well kempt SPEECH: Yes normal speech THOUGHT PROCESS: Normal thought process present Skin: COMMON NORMALS: no rashes or lesions noted, turgor normal, no jaundice, no petechiae and no mottling GENERAL SKIN EXAM: no rashes or lesions noted and turgor normal Course Vital Signs: Vital signs: Vital Signs Temperature 97.8 F 02/26/20 15:06 Pulse Rate 63 02/26/20 16:09 Respiratory Rate 18 02/26/20 15:06 Blood Pressure 135/87 02/26/20 16:09 Pulse Oximetry 98 02/26/20 15:06 MDM - Neuro Symptoms/Deficit MDM Narrative: Medical decision making narrative: The patient appears to have had a mild stroke with NIH of 4. She is also had this near syncopal episode. There is no sign of acute heart attack or stroke on CT. I reviewed the case with Dr. Robb who believes the patient should be admitted, well hydrated and receive MRI and MRA tomorrow. I reviewed this plan with Dr. Moe and she does agreement to do this. Lab Data: Attestation: I reviewed the patient's lab results. Labs: Lab Results 02/26/20 02/26/20 02/26/20 Range/Units 15:30 15:30 15:30 WBC 25.4 H (4.0-10.0) 10^3/ uL RBC 5.14 (4.1-5.3) 10^6/u L Hgb 14.9 (11.5-15.3) g/dL Hct 47.8 H (37.0-47.0) % MCV 93.0 (81-99) fL MCH 29.0 (28.0-34.0) pg MCHC 31.2 (30.0-36.0) g/dL RDW 13.1 (12.1-15.1) % Plt Count 199 (130-400) 10^3/c mm MPV 9.5 (7.4-10.4) fL Lymph % (Auto) Not Reportable [place] % (Auto) Not Reportable Lymph # (Auto) Not Reportable [place] # (Auto) Not Reportable Total Counted 100 (0-100) Atypical Lymphs % 25.0 H (0-5) % Absolute Neutrophi ls 3.6 (1.4-6.5) 10^3/c mm Segmented Neutroph ils 14 % Abs Segm Neuts (Ma n) 3.6 (1.6-7.1) 10/cmm Band Neutrophils 0.0 % Abs Band Neuts (Ma n) 0.0 (0.0-1.2) 10^3/c mm Absolute Lymphocyt es 21.1 H (1.2-3.4) 10^3/c mm Lymphocytes (Manua l) 58 % Monocytes (Manual) 2.0 % Absolute Monocytes 0.5 (0.1-0.6) 10^3/c mm Eosinophils (Man[place]) 1 % Absolute Eosinophi ls 0.2 (0.0-0.7) 10^3/c mm Platelet Estimate Normal (Normal) PT 12.60 (12.1-14.9) SECO NDS INR 0.91 (0.8-1.2) Sodium 138 (136-145) mmol/L Potassium 4.0 (3.5-5.1) mmol/L Chloride 103 (98-107) mmol/L Carbon Dioxide 22 (22-29) mmol/L Anion Gap 17.0 (5-19) BUN 12 (8-23) mg/dL Creatinine 0.7 (0.5-0.9) mg/dL GFR Calculation Not Reportable Glucose 96 (65-115) mg/dL Calculated Osmolal ity 282 L (285-295) mOsm/k g Calcium 9.4 (8.5-10.5) mg/dL Magnesium 2.5 H (1.7-2.3) mg/dL Total Bilirubin 0.5 (0.15-1.2) mg/dL AST 23 (0-32) U/L ALT 20 (0-33) U/L Alkaline Phosphata se 80 (35-105) IU/L Troponin T Baselin e (0-10) ng/L Total Protein 7.2 (6.6-8.7) g/dL Albumin 4.6 (3.5-5.2) g/dL Globulin 2.6 (1.3-4.6) g/dL 02/26/20 Range/Units 15:30 WBC (4.0-10.0) 10^3/ uL RBC (4.1-5.3) 10^6/u L Hgb (11.5-15.3) g/dL Hct (37.0-47.0) % MCV (81-99) fL MCH (28.0-34.0) pg MCHC (30.0-36.0) g/dL RDW (12.1-15.1) % Plt Count (130-400) 10^3/c mm MPV (7.4-10.4) fL Lymph % (Auto) [place] % (Auto) Lymph # (Auto) [place] # (Auto) Total Counted (0-100) Atypical Lymphs % (0-5) % Absolute Neutrophi ls (1.4-6.5) 10^3/c mm Segmented Neutroph ils % Abs Segm Neuts (Ma n) (1.6-7.1) 10/cmm Band Neutrophils % Abs Band Neuts (Ma n) (0.0-1.2) 10^3/c mm Absolute Lymphocyt es (1.2-3.4) 10^3/c mm Lymphocytes (Manua l) % Monocytes (Manual) % Absolute Monocytes (0.1-0.6) 10^3/c mm Eosinophils (Man[place] l) % Absolute Eosinophi ls (0.0-0.7) 10^3/c mm Platelet Estimate (Normal) PT (12.1-14.9) SECO NDS INR (0.8-1.2) Sodium (136-145) mmol/L Potassium (3.5-5.1) mmol/L Chloride (98-107) mmol/L Carbon Dioxide (22-29) mmol/L Anion Gap (5-19) BUN (8-23) mg/dL Creatinine (0.5-0.9) mg/dL GFR Calculation Glucose (65-115) mg/dL Calculated Osmolal ity (285-295) mOsm/k g Calcium (8.5-10.5) mg/dL Magnesium (1.7-2.3) mg/dL Total Bilirubin (0.15-1.2) mg/dL AST (0-32) U/L ALT (0-33) U/L Alkaline Phosphata se (35-105) IU/L Troponin T Baselin e 6 (0-10) ng/L Total Protein (6.6-8.7) g/dL Albumin (3.5-5.2) g/dL Globulin (1.3-4.6) g/dL Imaging Data^: CXR: Attestation: I personally reviewed and interpreted this imaging study as follows: My impression: No acute cardiopulmonary findings. CT Head: Radiologist's impression: [place] [address] CT Scan Report Signed Patient: Felicitas Augustine Unit #: [id number] : 1940 Age/Sex: 79 / F ADM Date: 02/26/20 Loc: ER Room/Bed: Attending Dr: Ordering Provider/Ordering MD: Jo Ann Reveles DO Date of Service: 02/26/20 Procedure(s): CT head wo con* [id number] Accession Number(s): [id number] Report Number: [id number] WS: [id number] CT HEAD NONCONTRAST HISTORY: cva SYMPTOMS TECHNIQUE: Contiguous axial imaging performed through the brain in 2.5 mm imaging. Bone and soft tissue windows. Sagittal and coronal reformats reviewed. All CT scans at [facility] use at least one of these dose optimization techniques: automated exposure control; mA and/or kV adjustment per patient size (includes targeted exams where dose is matched to clinical indication); or iterative reconstruction. DLP: 1350.82 mGy.cm COMPARISON: 08/05/2019 No acute intracranial hemorrhage, midline shift or mass effect. Mild atrophy and chronic ischemic disease. Hypertrophic ossific process involving the LEFT occipital condyle encroaching upon the LEFT cerebellum and brainstem. Similar appearance as compared to prior studies. No progression. Ventricles: Normal size with no hydrocephalus. Paranasal sinuses: As visualized are clear. Mastoid air cells: Well pneumatized. Calvarium and scalp: Skull is intact with no soft tissue edema or swelling. CT/CT head wo con* [id number] IMPRESSION: 1. No acute intracranial hemorrhage or edema. 2. Stable hypertrophic bone formation centered near the LEFT occipital condyle encroaching upon the LEFT cerebellum and brainstem is similar to prior studies without progression. No acute interval change. Dictated By: Annette Ladd DO Signed By: Annette Ladd DO Signed Date/Time: 02/26/20 1601 DD/ 1556 CTA Head and Neck: Radiologist's impression: [facility] [address] [place] [address] CT Scan Report Signed Patient: Felicitas Augustine Unit #: [id number] : 1940 Age/Sex: 79 / F ADM Date: 02/26/20 Loc: ER Room/Bed: Attending Dr: Ordering Provider/Ordering MD: Jo Ann Reveles DO Date of Service: 02/26/20 Procedure(s): CT angio headneck* [id number] Accession Number(s): [id number] Report Number: [id number] WS: [id number] CT ANGIOGRAM CEREBRAL AND CAROTID ARTERIES HISTORY: CVA SYMPTOMS TECHNIQUE: CT angiogram is performed of the carotid and cerebral arteries. During arterial injection imaging is obtained from the skull vertex to the aortic arch in 1.25 mm imaging. Coronal and sagittal reformats are submitted. Additional multi planar reformats of the carotid and cerebral arteries are submitted, MIP imaging also reviewed. NASCET criteria utilized. All CT scans at [facility] use at least one of these dose optimization techniques: automated exposure control; mA and/or kV adjustment per patient size (includes targeted exams where dose is matched to clinical indication); or iterative reconstruction. CONTRAST: Omnipaque 350; 95 mL IV. DLP: 1988.31 mGy.cm COMPARISON: 01/24/2015 Carotid Angiogram: Right carotid: Common carotid artery: Arises normally from the innominate artery. No significant plaque or stenosis. Internal carotid artery: Small amount of calcified plaque. The bifurcation is intact without significant stenosis. External carotid artery: Patent. Left carotid: Common carotid artery: Scattered plaque with no stenosis. Internal carotid artery: Scattered plaque with no stenosis. External carotid artery: Patent. Right vertebral artery: Unremarkable. Left vertebral artery: Small noncalcified plaque at the origin of the LEFT vertebral artery but no significant stenosis. Subclavian arteries: No stenosis. Aberrant RIGHT subclavian artery crosses posterior to the esophagus to the descending aorta. Upper thorax: Benign granuloma RIGHT upper lobe. Thyroid gland: Small caliber or absent thyroid. Osseous structures: Osteopenia and cervical spondylosis. CEREBRAL ANGIOGRAM: Intracranial vertebral arteries: Hypertrophic bone formation encroaching and partially obscuring the distal LEFT vertebral artery. Basilar artery: No significant stenosis or occlusion. No aneurysm. Intracranial Internal carotid arteries: Mild atherosclerosis. There is very mild narrowing of the RIGHT intracranial carotid artery with no significant stenosis. No aneurysms. Middle cerebral arteries: Normal. Anterior cerebral arteries and ACOM: Hypoplastic and small RIGHT A1 segment similar to the prior study. Posterior cerebral arteries and PCOM's: No stenosis. Hypoplastic LEFT P-comm. Dural venous sinuses are normally enhancing. Mastoid air cells: Normal. Paranasal sinuses: Normal. Calvarium: Normal. CT/CT angio headneck* [id number] IMPRESSION: 1. Mild atherosclerosis intracranial and extracranial carotid arteries with no significant stenosis. 2. 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 3. Aberrant RIGHT subclavian artery. 4. Moderate stenosis origin of the LEFT vertebral artery is unchanged. 5. Encroachment upon the distal LEFT vertebral artery by hypertrophic bone formation which has been previously described at the LEFT skull base, unchanged. Dictated By: Annette Ladd DO Signed By: Annette Ladd DO Signed Date/Time: 02/26/20 1610 DD/ 1601 EKG Data^: EKG 1: Attestation: I personally reviewed and interpreted this EKG as follows: EKG interpretation date: 02/26/20 EKG interpretation time: 15:19 Interpretation: Atrial paced rhythm at 67 beats a minute, PVC noted, incomplete right bundle branch block, nonspecific ST-T wave changes. Discharge Plan Discharge Patient Disposition: Placed in Observation Clinical Impression: CVA (cerebral vascular accident), Near syncope Condition: Stable Prescriptions: No Action lidocaine [Lidoderm] 5 % adhesive patch,medicated See Rx Instructions .ROUTE .COMPLEX RF: 0 Invokana 300 mg tablet 300 mg PO QAM Qty: 90 RF: 1 furosemide 20 mg tablet 20 mg PO QAM PRN (Reason: edema) Qty: 90 RF: 1 Victoza 2-Wilson 0.6 mg/0.1 mL (18 mg/3 mL) pen injector 1.2 mg SUBCUT Q24H 90 Days Qty: 18 RF: 1 metformin 500 mg tablet 1,000 mg PO BID 90 Days Qty: 360 RF: 1 Hold Instructions: Doctor's Order gabapentin 300 mg capsule 300 mg PO TID 90 Days Qty: 270 RF: 1 cyclobenzaprine 5 mg tablet 5 mg PO TID PRN (Reason: pain) Qty: 30 RF: 0 levothyroxine 88 mcg tablet 88 mcg PO DAILY Qty: 90 RF: 0 Proventil HFA 90 mcg/actuation HFA aerosol inhaler 2 puff INHALATION QID PRN (Reason: Shortness Of Breath) RF: 0 Airborne Gummy 250-11.66 mg Tablet,Chewable See Rx Instructions .ROUTE .COMPLEX RF: 0 Vitamin D3 See Rx Instructions .ROUTE .COMPLEX RF: 0 Detrol 2 mg tablet 2 mg PO DAILY RF: 0 simvastatin 20 mg tablet 20 mg PO DAILY RF: 0 Flonase Allergy Relief 50 mcg/actuation spray,suspension 2 spray INTRANASAL DAILY RF: 0 lisinopril 2.5 mg tablet 2.5 mg PO DAILY RF: 0 duloxetine 30 mg capsule,delayed release(DR/EC) 60 mg PO DAILY RF: 0 Levemir FlexTouch U-100 Insuln 100 unit/mL (3 mL) insulin pen 40 unit SUBCUT BEDTIME RF: 0 Referrals: Ida Stein FNP [Primary Care Provider] - Coding Level of Care Code ED [facility]ing [facility] for Chg Fwd Exam Comprehensive
[2020-02-26 15:36] LABS: Hematocrit 47.8 % (37.0-47.0); Hemoglobin 14.9 g/dL (11.5-15.3); Mean Corpuscular HGB Conc 31.2 g/dL (30.0-36.0); Mean Platelet Volume 9.5 fL (7.4-10.4); Platelet Count 199 10^3/cmm (130-400); Red Blood Count 5.14 10^6/uL (4.1-5.3); Red Cell Distribution Width 13.1 % (12.1-15.1); White Blood Count 25.4 10^3/uL (4.0-10.0)
[2020-02-26] MEDS: iohexol 350 mg/mL 100 mL Btl IV (15:46)
[2020-02-26 15:51] LABS: INR 0.91 (0.8-1.2)
[2020-02-26 15:57] LABS: Alanine Aminotransferase 20 U/L (0-33); Albumin Level 4.6 g/dL (3.5-5.2); Alkaline Phosphatase 80 IU/L (35-105); Aspartate Amino Transferase 23 U/L (0-32); Blood Urea Nitrogen 12 mg/dL (8-23); Calcium 9.4 mg/dL (8.5-10.5); Carbon Dioxide 22 mmol/L (22-29); Chloride 103 mmol/L (98-107); Globulin 2.6 g/dL (1.3-4.6); Glucose 96 mg/dL (65-115); Magnesium 2.5 mg/dL (1.7-2.3); Osmolality Calculated 282 mOsm/kg (285-295); Sodium 138 mmol/L (136-145); Total Bilirubin 0.5 mg/dL (0.15-1.2); Total Protein 7.2 g/dL (6.6-8.7); Troponin(5th) Baseline 6 ng/L (0-10)
[2020-02-26 16:03] LABS: Slide Review Slide Review Perform
[2020-02-26 16:09] VITALS: BP 132/67; BP 135/87; PULSE 63; PULSE 67
[2020-02-26 16:11] LABS: Absolute Eosinophils 0.2 10^3/cmm (0.0-0.7); Absolute Segmented Neutrophil 3.6 10/cmm (1.6-7.1); Eosinophils 1 %; Lymphocytes 58 %; Lymphocytes Absolute 21.1 10^3/cmm (1.2-3.4); Monocytes Absolute 0.5 10^3/cmm (0.1-0.6); Segmented Neutrophils 14 %; Total Cells Counted 100 (0-100)
[2020-02-26 16:15] LABS: Absolute Neutrophil 3.6 10^3/cmm (1.4-6.5); Platelet Estimate Normal (Normal)
[2020-02-26] MEDS: sodium chloride 0.9% 1,000 ML 999 ML IV (16:16)
--- NOTE | 2020-02-26 17:17 | ECG_ITS ---
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 Measurements Intervals [place] Rate: 64 P: 127 AR: 185 QRS: -74 QRSD: 91 T: 79 QT: 431 QTc: 446 Interpretive Statements ELECTRONIC ATRIAL PACEMAKER LEFT AXIS DEVIATION [QRS AXIS < -30] LOW QRS VOLTAGE IN PRECORDIAL LEADS [QRS DEFLECTION < 1.0 mV IN CHEST LEADS] POSSIBLE ANTERIOR MYOCARDIAL INFARCTION , PROBABLY OLD [30 ms Q WAVE IN V3/V4, OR R < 0.2 mV IN V4] ST ELEVATION, CONSIDER SEPTAL INJURY [MARKED ST ELEVATION W/O NORMALLY INFLECTED T WAVE IN V1/V2] ACUTE PA Compared to ECG 02/26/2020 15:19:08 Myocardial infarct finding now present Incomplete right bundle-branch block no longer present ST (T wave) deviation still present Electronically Signed On 02-26-2020 20:27:54 CDT by Gary Branch M.D. [id number]
[2020-02-26] MEDS: aspirin 325 mg Tablet PO (17:42)
--- NOTE | 2020-02-26 18:04 | PM.HP ---
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 Presented today with acute onset of waking up with R sided headache, numbness over right scalp and face, progressing to involve right side of tongue as well. Sensation described as numbness. No concomitant rash. No h/o shingles. No pain. Also c/o feeling of falling backwards with loss of balance. At a baseline she walks with walker with support. Has some feeling of offbalance but not significantly changed since baseline Review of Systems General: Reports: 10 or more systems reviewed and unremarkable except in HPI and below Const: Denies: fever(s), chills or body aches Eyes: Denies: change in vision, blurry vision or photophobia ENMT: Reports: hoarseness; Denies: throat pain, enlarged tonsils, odynophagia or nasal congestion Card: Denies: chest pain, palpitations, irregular heart rhythm, edema, swelling of feet/ankles, lightheadedness, pre-syncope, dyspnea on exertion or orthopnea Resp: Denies: dyspnea, productive cough, non-productive cough, wheezing, stridor, pain on inspiration, change in phlegm color, hemoptysis or chest congestion GI: Denies: abdominal pain, nausea, vomiting, hematemesis, coffee ground emesis, dysphagia, heartburn, diarrhea, constipation, GI cramping, change in stool character, hematochezia or melena : Denies: flank pain, difficulty voiding, dysuria, urinary frequency, urinary urgency, urinary hesitancy or hematuria Musc: Denies: neck pain, back pain, extremity pain, joint swelling, joint warmth or deformity Neuro: Denies: headache(s), numbness in extremities, weakness in extremities, sensory changes, difficulty walking, frequent falls, dizziness, vertigo, behavioral changes, Slurred speech present or seizure-like activity Psych: Denies: anxiety, depression, suicidal ideation or homicidal ideation Endo: Denies: polyuria, polydipsia, tired all the time, cold intolerance or hot flashes [place]/Lymph: Denies: easy bruising or easy bleeding Medications/Allergies Home Medications Medication Instructions Recorded Confirmed Last Taken Type lidocaine 5 % topical patch See Rx Instructions .ROUTE 07/12/19 02/26/20 02/25/20 History .COMPLEX each canagliflozin 300 mg tablet 300 mg PO QAM #90 tab 10/29/19 02/26/20 02/26/20 Rx furosemide 20 mg tablet 20 mg PO QAM PRN #90 tab 10/29/19 02/26/20 02/25/20 Rx liraglutide 0.6 mg/0.1 mL (18 mg/3 1.2 mg SUBCUT Q24H 90 Days #18 ml 10/29/19 02/26/20 02/26/20 Rx mL) subcutaneous pen injector metformin 500 mg tablet 1,000 mg PO BID 90 Days #360 tab 10/29/19 02/26/20 Unknown Rx levothyroxine 88 mcg tablet 88 mcg PO DAILY #90 tab 11/01/19 02/26/20 02/26/20 Rx cyclobenzaprine 5 mg tablet 5 mg PO TID PRN #30 tab 11/26/19 02/26/20 Unknown Rx gabapentin 300 mg capsule 300 mg PO TID 90 Days #270 cap 11/26/19 02/26/20 02/25/20 Rx Detrol 2 mg PO DAILY 02/26/20 02/26/20 02/26/20 History Flonase Allergy Relief 2 spray INTRANASAL DAILY 02/26/20 02/26/20 Unknown History Proventil HFA 2 puff INHALATION QID PRN 02/26/20 02/26/20 Unknown History Vitamin D3 See Rx Instructions .ROUTE .COMPLEX 02/26/20 02/26/20 Unknown History cyanocobalamin (vitamin B-12) See Rx Instructions .ROUTE .COMPLEX 02/26/20 02/26/20 Unknown History duloxetine 60 mg PO DAILY 02/26/20 02/26/20 02/25/20 History insulin detemir U-100 [Levemir 40 unit SUBCUT BEDTIME 02/26/20 02/26/20 02/25/20 History FlexTouch U-100 Insuln] lisinopril 2.5 mg PO DAILY 02/26/20 02/26/20 Unknown History [id number] C-herb no.124 See Rx Instructions .ROUTE .COMPLEX 02/26/20 02/26/20 Unknown History [Airborne Gummy] simvastatin 20 mg PO DAILY 02/26/20 02/26/20 02/26/20 History Allergies Allergy/AdvReac Type Severity Reaction Status Date / Time Sulfa (Sulfonamide Allergy RASH Verified 02/26/20 16:30 Antibiotics) PNEUMONIA VACCINE Allergy ALGY-Rash Uncoded 02/26/20 16:30 PFSH Acute PFSH: Medical History Artificial cardiac pacemaker COPD (chronic obstructive pulmonary disease) Depression with anxiety Diabetes Essential hypertension, benign H/O brain tumor H/O reduction of closed fracture left wrist 10/23/2015 Hyperlipidemia Hypothyroidism Leg swelling Lung nodule Myasthenia Myasthenia gravis with exacerbation, adult form Neuropathy Normal colonoscopy 2013 Pacemaker 04/05/2019 Vitamin B 12 deficiency Vitamin D deficiency Surgical History H/O brain surgery 4 x H/O esophagogastroduodenoscopy 2013 H/O thyroidectomy History of hysterectomy for cancer Hx of cholecystectomy S/P appy Family History Other Cancer Social History Smoking and tobacco status: former smoker Quit status (tobacco): has quit using tobacco Year quit tobacco: 2001 Alcohol intake: never Lives independently: Yes Marital status: / Current gender identity: Female Vitals/I&O/Wt Last Vital Signs Temp 97.8 F 02/26/20 15:06 Pulse 63 02/26/20 16:09 Resp 18 02/26/20 15:06 BP 135/87 02/26/20 16:09 Pulse Ox 98 02/26/20 15:06 02/26/20 02/26/20 02/26/20 06:59 14:59 22:59 Intake Total 1000 / 1000 Balance 1000 / 1000 Weight last 48 hrs Weight 62.596 kg Physical Exam Narrative: EXAM NARRATIVE: GEN: Awake, alert and oriented, no acute distress CVS: S1S2 N RS: CTA B/L Abd: Soft, nt/nd , bs+ QUARTZ MINER: no focal neuro deficits Data : 02/26/20 15:30 02/26/20 15:30 A&P Assessment and plan (1) CVA (cerebral vascular accident): Status: Acute Qualifiers: CVA mechanism: unspecified Qualified Code(s): I63.9 - Cerebral infarction, unspecified (2) Near syncope: Status: Acute (3) COPD (chronic obstructive pulmonary disease): Status: Acute (4) Artificial cardiac pacemaker: Status: Acute (5) Myasthenia gravis with exacerbation, adult form: Status: Acute (6) Hypothyroidism: Status: Acute Qualifiers: Hypothyroidism type: acquired Qualified Code(s): E03.9 - Hypothyroidism, unspecified (7) CLL (chronic lymphocytic leukemia): Status: Acute Additional A&P Information Admit to CSU in observation status CT head : no acute changes CTA neck: Moderate stenosis origin of the LEFT vertebral artery is unchanged. Encroachment upon the distal LEFT vertebral artery by hypertrophic bone formation which has been previously described at the LEFT skull base, unchanged. Plan for MRI/MRA tomorrow per ER discussion with Dr. Robb Out of tpa window recommend ASA + Plavix, however patient does not want to start plavix, states that she was on it the past, does not recall why she discontinued it, and is very reluctant and anxious to start this medication. [place] to trying asa 325mg daily atorvastatin 40mg po qd PPM interrogation to r/o arrhythmia echo 03/2019 Normal left ventricular cavity size, wall thickness and systolic function. Left ventricular ejection fraction is estimated at 63 %. No regional wall motion abnormalities. Normal diastolic function. No significant valvular abnormality. Full code DVt ppx: lovenox 30mg qd Attestations Medical Necessity Statement*: CVA/TIA management, anticipate less than 2 midnight Coding Level of Care Code Acute Power Technician for [facility] Fwd Diagnoses CVA (cerebral vascular accident) I63.9 CVA mechanism: unspecified Near syncope R55 COPD (chronic obstructive pulmonary disease) J44.9 Artificial cardiac pacemaker Z95.0 Myasthenia gravis with exacerbation, adult form G70.01 Hypothyroidism E03.9 Hypothyroidism type: acquired CLL (chronic lymphocytic leukemia) C91.10
[2020-02-26 19:10] VITALS: BP 124/74; PULSE 87; RESP 18; O2SAT 98
[2020-02-26 20:00] VITALS: BP 135/75; PULSE 83; RESP 18; TEMP 36.6; O2SAT 96
[2020-02-26 20:37] VITALS: PULSE 60; O2SAT 95
--- NOTE | 2020-02-26 20:43 | PC.RESP ---
Pt. states that she uses a nebulizer and an inhaler PRN when she feels SOB. Pt also states that she is on room air at home. Will continue to monitor Pt. she will notify nursing for her pulmonary concerns.
[2020-02-26] MEDS: sodium chloride 0.9% 1,000 ML 150 ML IV (21:35)
[2020-02-26 22:24] LABS: Glucose Urine UA 4+ (Normal); Ketones Urine Negative (Negative); Protein Urine Neg (Negative); Specific Gravity, Urine 1.015 (1.005-1.030); Urine Appearance Clear (CLEAR); Urine Color Yellow (Yellow); pH Urine 5 (5-7)
[2020-02-26 22:25] LABS: Bacteria Urine TRACE; Bilirubin Urine Neg (NEGATIVE); Blood Urine Neg (Negative); Leukocyte Esterase Urine Negative (Negative); Nitrate Urine Negative (Negative); RBC Urine RARE /hpf (0-2); Squamous Epithelial Cell Urine RARE (0-5); Urobilinogen Urine Norm (Negative); WBC Urine RARE /hpf (0-5)
[2020-02-26 22:35] LABS: Troponin 5 6HR 7.17 ng/L (0-10); Troponin 5 6HR Delta 1.17 ng/L (0-12)
[2020-02-26 23:25] VITALS: BP 132/72; PULSE 60; RESP 18; TEMP 36.4; O2SAT 97
[2020-02-27] VITALS (8 sets, daily range): BP systolic 117–133; BP diastolic 56–73; PULSE 58–82; RESP 16–23; TEMP 36.2–36.8; O2SAT 94–97
[2020-02-27] MEDS: acetaminophen 325 mg Tablet 650 MG PO (01:36)
[2020-02-27] MEDS: sodium chloride 0.9% 1,000 ML 150 ML IV (01:36)
--- NOTE | 2020-02-27 02:12 | PC.NURSE ---
late entry, pt arrived to floor, A&OX4, NS infusing to 18g L wrist IV at 150, denies pain or needs at this time, clwr
[2020-02-27 04:23] LABS: Basophils # 0.1 10^3/uL (0.0-0.1); Basophils % 0.3 %; Eosinophils # 0.2 10^3/uL (0.0-0.8); Eosinophils % 0.9 %; Hematocrit 41.9 % (37.0-47.0); Hemoglobin 12.9 g/dL (11.5-15.3); Lymphocytes # 18.2 10^3/uL (0.8-4.8); Lymphocytes % 77.5 %; Mean Corpuscular HGB Conc 30.8 g/dL (30.0-36.0); Mean Corpuscular Hemoglobin 29.1 pg (28.0-34.0); Mean Corpuscular Volume 94.6 fL (81-99); Monocytes # 1.6 10^3/uL (0.2-0.9); Monocytes % 6.8 %; Neutrophils # 3.38 10^3/uL (1.8-7.7); Neutrophils % 14.4 %; Nucleated Red Blood Cells % 0 %; Platelet Count 181 10^3/cmm (130-400); Red Blood Count 4.43 10^6/uL (4.1-5.3); Red Cell Distribution Width 13.1 % (12.1-15.1); White Blood Count 23.5 10^3/uL (4.0-10.0)
[2020-02-27 04:55] LABS: Alanine Aminotransferase 16 U/L (0-33); Albumin Level 3.8 g/dL (3.5-5.2); Alkaline Phosphatase 66 IU/L (35-105); Anion Gap 12.9 (5-19); Aspartate Amino Transferase 18 U/L (0-32); Blood Urea Nitrogen 12 mg/dL (8-23); Calcium 8.4 mg/dL (8.5-10.5); Carbon Dioxide 22 mmol/L (22-29); Chloride 111 mmol/L (98-107); Globulin 2.1 g/dL (1.3-4.6); Glucose 152 mg/dL (65-115); Osmolality Calculated 293 mOsm/kg (285-295); Potassium 3.9 mmol/L (3.5-5.1); Sodium 142 mmol/L (136-145); Total Bilirubin 0.3 mg/dL (0.15-1.2); Total Protein 5.9 g/dL (6.6-8.7)
[2020-02-27 05:50] LABS: Slide Review Slide Review Perform
--- NOTE | 2020-02-27 11:25 | PM.DCS ---
Discharge Providers Date of Admission: 02/26/20 16:45 Date of Discharge: February 27, 2020 Attending Provider at Admission: Puja Moe MD Attending Provider at Discharge: Puja Moe MD Primary Care Provider: RHETT Alarcon Diagnoses at Discharge Discharge Diagnosis (1) CVA (cerebral vascular accident): Status: Acute Qualifiers: CVA mechanism: unspecified Qualified Code(s): I63.9 - Cerebral infarction, unspecified (2) Near syncope: Status: Acute (3) COPD (chronic obstructive pulmonary disease): Status: Acute (4) Artificial cardiac pacemaker: Status: Acute (5) Myasthenia gravis with exacerbation, adult form: Status: Acute (6) Hypothyroidism: Status: Acute Qualifiers: Hypothyroidism type: acquired Qualified Code(s): E03.9 - Hypothyroidism, unspecified (7) CLL (chronic lymphocytic leukemia): Status: Acute Reason for Visit Reason for Visit: headache/numbness/blurry vision Hospital Course Discharge Summary: Felicitas Augustine is a 79 year old female with PMH CLL on expectant management, past h/o meningioma with compression of ICA left side, s/p resection and chemoradiation 30 years ago, 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 Presented with acute onset of waking up with R sided headache, numbness over right scalp and face, progressing to involve right side of tongue as well. Sensation described as numbness. No concomitant rash. No h/o shingles. Also c/o feeling of falling backwards with loss of balance. At a baseline she walks with walker with support. Has some feeling of offbalance but not significantly changed since baseline. In the ER her NIH stroke scale was noted to be 4. ER physician had discussed the case with Dr. Robb. Patient was out of the TPA window. It was recommended to start her on aspirin and Plavix. However patient is extremely hesitant to start on Plavix. She states that she was on aspirin and Plavix sometime in the past because of the history of 5 TIAs, however it was discontinued and she is unsure why. Moreover she states she has had a friend who due to bleeding from Plavix and is refusing this adamantly. Aspirin 81 mg dose has been increased to 325 mg p.o. daily in accordance. She is encouraged compliance with her simvastatin. CT of the head did not show any new acute strokes. CTA of the neck did not show any occlusive carotid disease. Some changes were noted on the left common carotid, however patient has a history of resection of meningioma that was abutting the carotid in the past and more likely to be residual changes from that time. MRI/MRA of the brain was planned, however we have been told by the MRI that her pacemaker is incompatible with getting this study. She feels much improved today. Her tongue numbness has resolved. Numbness over the side of her face is significantly improved as well, however she states that some paresthesia appears to exist along her right side of the scalp. Feeling of presyncope is also resolved today. She is being discharged in stable condition with increased aspirin dosing. Encouraged to follow-up with her primary care provider in the next 4 to 7 days. Her pacemaker was interrogated and no episodes of arrhythmia were noted. Physical Exam Narrative: EXAM NARRATIVE: GEN: Awake, alert and oriented, no acute distress CVS: S1S2 N RS: CTA B/L Abd: Soft, nt/nd , bs+ Discharge Data Data Completed and Pending: Completed Studies During Hospitalization Category Date Time Status CT angio headneck * [id number] Urge nt Cat Scan 02/26/20 15:[address] head wo con* 7 [id number] Stat Cat Scan 02/26/20 15:16 Completed XR chest 1V dahiana ble [id number] Stat Exams 02/26/20 15:16 Completed Pending at discharge Category Date Time Status Complete Blood Co unt w/Auto AM LABS Lab 02/28/20 04:00 Ordered Complete Blood Co unt w/Auto AM LABS Lab 02/29/20 04:00 Ordered Comprehensive Met abolic Panel AM LA BS Lab 02/28/20 04:00 Ordered Comprehensive Met abolic Panel AM LA BS Lab 02/29/20 04:00 Ordered Labs from last 24 hours 02/27/20 02/27/20 02/26/20 03:15 03:15 21:58 WBC 23.5 H RBC 4.43 Hgb 12.9 Hct 41.9 MCV 94.6 MCH 29.1 MCHC 30.8 RDW 13.1 Plt Count 181 MPV 10.0 Neut % (Auto) 14.4 Lymph % (Auto) 77.5 Andrew % (Auto) 6.8 Eos % (Auto) 0.9 Baso % (Auto) 0.3 Neut # (Auto) 3.38 Lymph # (Auto) 18.2 H Andrew # (Auto) 1.6 H Eos # (Auto) 0.2 Baso # (Auto) 0.1 Nucleated RBC % (a uto) 0 Total Counted Atypical Lymphs % Absolute Neutrophi ls Segmented Neutroph ils Abs Segm Neuts (Ma n) Band Neutrophils Abs Band Neuts (Ma n) Absolute Lymphocyt es Lymphocytes (Manua l) Monocytes (Manual) Absolute Monocytes Eosinophils (Manua l) Absolute Eosinophi ls Nucleated RBCs # 0.0 Platelet Estimate PT INR Sodium 142 Potassium 3.9 Chloride 111 H Carbon Dioxide 22 Anion Gap 12.9 BUN 12 Creatinine 0.8 GFR Calculation Not Reportable Glucose 152 H Calculated Osmolal ity 293 Calcium 8.4 L Magnesium Total Bilirubin 0.3 AST 18 ALT 16 Alkaline Phosphata se 66 Troponin T Baselin e Troponin T 120 Min [place] Troponin T Troponin T Hi Sens 6Hr 7.17 Troponin T Hi Sens 6Hr Delta 1.17 Total Protein 5.9 L Albumin 3.8 Globulin 2.1 Urine Color Urine Appearance Urine pH Ur Specific Gravit y Urine Protein Urine Glucose (UA) Urine Ketones Urine Blood Urine Nitrate Urine Bilirubin Urine Urobilinogen Ur Leukocyte Sofía ase Urine RBC Urine WBC Ur Squamous Epith Cells Amorphous Sediment Urine Bacteria 02/26/20 02/26/20 02/26/20 21:45 17:34 15:30 WBC RBC Hgb Hct MCV MCH MCHC RDW Plt Count MPV Neut % (Auto) Lymph % (Auto) Andrew % (Auto) Eos % (Auto) Baso % (Auto) Neut # (Auto) Lymph # (Auto) Andrew # (Auto) Eos # (Auto) Baso # (Auto) Nucleated RBC % (a uto) Total Counted Atypical Lymphs % Absolute Neutrophi ls Segmented Neutroph ils Abs Segm Neuts (Ma n) Band Neutrophils Abs Band Neuts (Ma n) Absolute Lymphocyt es Lymphocytes (Manua l) Monocytes (Manual) Absolute Monocytes Eosinophils (Manua l) Absolute Eosinophi ls Nucleated RBCs # Platelet Estimate PT INR Sodium Potassium Chloride Carbon Dioxide Anion Gap BUN Creatinine GFR Calculation Glucose Calculated Osmolal ity Calcium Magnesium Total Bilirubin AST ALT Alkaline Phosphata se Troponin T Baselin e 6 Troponin T 120 Min [place] Cancelled Delta Troponin T Cancelled Troponin T Hi Sens 6Hr Troponin T Hi Sens 6Hr Delta Total Protein Albumin Globulin Urine Color Yellow Urine Appearance Clear Urine pH 5 Ur Specific Gravit y 1.015 Urine Protein Neg Urine Glucose (UA) 4+ H Urine Ketones Negative Urine Blood Neg Urine Nitrate Negative Urine Bilirubin Neg Urine Urobilinogen Norm Ur Leukocyte Sofía ase Negative Urine RBC Rare Urine WBC Rare Ur Squamous Epith Cells Rare Amorphous Sediment Not Reportable Urine Bacteria Trace 02/26/20 02/26/20 02/26/20 15:30 15:30 15:30 WBC 25.4 H RBC 5.14 Hgb 14.9 Hct 47.8 H MCV 93.0 MCH 29.0 MCHC 31.2 RDW 13.1 Plt Count 199 MPV 9.5 Neut % (Auto) Lymph % (Auto) Not Reportable Andrew % (Auto) Not Reportable Eos % (Auto) Baso % (Auto) Neut # (Auto) Lymph # (Auto) Not Reportable Andrew # (Auto) Not Reportable Eos # (Auto) Baso # (Auto) Nucleated RBC % (a uto) Total Counted 100 Atypical Lymphs % 25.0 H Absolute Neutrophi ls 3.6 Segmented Neutroph ils 14 Abs Segm Neuts (Ma n) 3.6 Band Neutrophils 0.0 Abs Band Neuts (Ma n) 0.0 Absolute Lymphocyt es 21.1 H Lymphocytes (Manua l) 58 Monocytes (Manual) 2.0 Absolute Monocytes 0.5 Eosinophils (Manua l) 1 Absolute Eosinophi ls 0.2 Nucleated RBCs # Platelet Estimate Normal PT 12.60 INR 0.91 Sodium 138 Potassium 4.0 Chloride 103 Carbon Dioxide 22 Anion Gap 17.0 BUN 12 Creatinine 0.7 GFR Calculation Not Reportable Glucose 96 Calculated Osmolal ity 282 L Calcium 9.4 Magnesium 2.5 H Total Bilirubin 0.5 AST 23 ALT 20 Alkaline Phosphata se 80 Troponin T Baselin e Troponin T 120 Min [place] Troponin T Troponin T Hi Sens 6Hr Troponin T Hi Sens 6Hr [place] Total Protein 7.2 Albumin 4.6 Globulin 2.6 Urine Color Urine Appearance Urine pH Ur Specific Gravit y Urine Protein Urine Glucose (UA) Urine Ketones Urine Blood Urine Nitrate Urine Bilirubin Urine Urobilinogen Ur Leukocyte Sofía ase Urine RBC Urine WBC Ur Squamous Epith Cells Amorphous Sediment Urine Bacteria Vitals: Last Vital Signs Temp 97.2 F L 02/27/20 10:46 Pulse 75 02/27/20 10:46 Resp 20 H 02/27/20 10:46 BP 129/63 02/27/20 10:46 Pulse Ox 94 02/27/20 10:46 Discharge Plan Discharge Patient Disposition: Home Condition: Stable Prescriptions: New aspirin 325 mg tablet 325 mg PO DAILY Qty: 30 RF: 0 Continued lidocaine [Lidoderm] 5 % adhesive patch,medicated See Rx Instructions .ROUTE .COMPLEX RF: 0 Invokana 300 mg tablet 300 mg PO QAM Qty: 90 RF: 1 furosemide 20 mg tablet 20 mg PO QAM PRN (Reason: edema) Qty: 90 RF: 1 Victoza 2-Wilson 0.6 mg/0.1 mL (18 mg/3 mL) pen injector 1.2 mg SUBCUT Q24H 90 Days Qty: 18 RF: 1 metformin 500 mg tablet 1,000 mg PO BID 90 Days Qty: 360 RF: 1 Hold Instructions: Doctor's Order gabapentin 300 mg capsule 300 mg PO TID 90 Days Qty: 270 RF: 1 cyclobenzaprine 5 mg tablet 5 mg PO TID PRN (Reason: pain) Qty: 30 RF: 0 levothyroxine 88 mcg tablet 88 mcg PO DAILY Qty: 90 RF: 0 Proventil HFA 90 mcg/actuation HFA aerosol inhaler 2 puff INHALATION QID PRN (Reason: Shortness Of Breath) RF: 0 Airborne Gummy 250-11.66 mg Tablet,Chewable See Rx Instructions .ROUTE .COMPLEX RF: 0 Vitamin D3 See Rx Instructions .ROUTE .COMPLEX RF: 0 Detrol 2 mg tablet 2 mg PO DAILY RF: 0 simvastatin 20 mg tablet 20 mg PO DAILY RF: 0 Flonase Allergy Relief 50 mcg/actuation spray,suspension 2 spray INTRANASAL DAILY RF: 0 lisinopril 2.5 mg tablet 2.5 mg PO DAILY RF: 0 duloxetine 30 mg capsule,delayed release(DR/EC) 60 mg PO DAILY RF: 0 Levemir FlexTouch U-100 Insuln 100 unit/mL (3 mL) insulin pen 40 unit SUBCUT BEDTIME RF: 0 cyanocobalamin (vitamin B-12) See Rx Instructions .ROUTE .COMPLEX RF: 0 Discharge Orders: Discharge Order (Routine); Ordered 02/27/20 Ordered By: Puja Moe Referrals: Ida Stein FNP [Primary Care Provider] - 4-7 days (hospital discharge follow up ) Discharge Diet: Cardiac and Diabetic Discharge Activity: Resume usual activity, Use walker/crutches as instructed and As per PT/OT instructions Discharge Attestations Time Spent in Discharge Care*: less than 30 min Quality Metrics Clinical Quality Measures During this hospital stay, did patient experience: None Coding Level of Care Code Acute Community Youth Secretary for [facility] Fwd Diagnoses CVA (cerebral vascular accident) I63.9 CVA mechanism: unspecified Near syncope R55 COPD (chronic obstructive pulmonary disease) J44.9 Artificial cardiac pacemaker Z95.0 Myasthenia gravis with exacerbation, adult form G70.01 Hypothyroidism E03.9 Hypothyroidism type: acquired CLL (chronic lymphocytic leukemia) C91.10
[2020-02-27 11:37] LABS: Glucose Point of Care 141 mg/dL (70-110)
[2020-02-27] MEDS: aspirin 325 mg Tablet PO (13:13)
--- NOTE | 2020-02-27 16:15 | PC.NURSE ---
[employer] report of pacemaker interrogation reviewed by Dr. Moe. Patient cleared for dischagre.
--- NOTE | 2020-02-28 17:36 | PC.RESP ---
PULMONARY REHAB INFORMATION SENT TO PATIENT.
== END 2020-02-27 16:45 | disposition home or self-care (01) ==
LOC: ER 18:04 → CSU 18:15
PROVIDERS: Emergency Medicine; Admitting Provider Student in an Organized Health Care Education/Training Program; PCP Nurse Practitioner Family; Visit Provider Student in an Organized Health Care Education/Training Program
DX: I63.9 Cerebral infarction, unspecified (principal); R55 Syncope and collapse; J44.9 Chronic obstructive pulmonary disease, unspecified; G70.01 Myasthenia gravis with (acute) exacerbation; C91.10 Chronic lymphocytic leukemia of B-cell type not having achieved remission; Z95.0 Presence of cardiac pacemaker; E11.9 Type 2 diabetes mellitus without complications; I10 Essential (primary) hypertension; E78.5 Hyperlipidemia, unspecified; Z87.891 Personal history of nicotine dependence; R29.704 NIHSS score 4; Z79.4 Long term (current) use of insulin; E89.0 Postprocedural hypothyroidism
CPT/HCPCS: 12345; 36415; 36416; 70450; 70496; 70498; 71045; 80053; 81001; 82962; 83735; 84484; 85007; 85025; 85610; 92523; 92610; 93005; 96360; 96361; 97110; 97161; 97165; 99283; 99285; G0378; J7030; Q9967

== ENCOUNTER → 2020-03-04 11:19 | Outpatient (BNVA) | payer MEDICARE, OTHER, SELFPAY | PROVIDERS: PCP Nurse Practitioner Family; Visit Provider Nurse Practitioner Family | DX: E11.9 Type 2 diabetes mellitus without complications (principal); E55.9 Vitamin D deficiency, unspecified; E03.9 Hypothyroidism, unspecified; E78.2 Mixed hyperlipidemia; G70.00 Myasthenia gravis without (acute) exacerbation; G62.9 Polyneuropathy, unspecified; C91.10 Chronic lymphocytic leukemia of B-cell type not having achieved remission | CPT/HCPCS: 80061; 82306; 83036; 84443; 85025 ==

== ENCOUNTER → 2020-07-14 09:51 | Outpatient (BNVA) | payer MEDICARE, OTHER, SELFPAY | PROVIDERS: PCP Nurse Practitioner; Visit Provider Nurse Practitioner | DX: E11.9 Type 2 diabetes mellitus without complications (principal); E03.9 Hypothyroidism, unspecified; J44.9 Chronic obstructive pulmonary disease, unspecified | CPT/HCPCS: 80053; 80061; 81000; 83036; 84443; 85025 ==

== ENCOUNTER 2020-08-17 12:27 | Outpatient (CLI) | payer MEDICARE, OTHER, SELFPAY ==
[2020-08-17 13:05] LABS: Basophils # 0.1 10^3/uL (0.0-0.1); Basophils % 0.4 %; Eosinophils # 0.2 10^3/uL (0.0-0.8); Eosinophils % 0.7 %; Hematocrit 47.1 % (37.0-47.0); Hemoglobin 14.9 g/dL (11.5-15.3); Lymphocytes # 16.8 10^3/uL (0.8-4.8); Lymphocytes % 72.4 %; Mean Corpuscular HGB Conc 31.6 g/dL (30.0-36.0); Mean Corpuscular Hemoglobin 29.2 pg (28.0-34.0); Mean Corpuscular Volume 92.2 fL (81-99); Mean Platelet Volume 9.5 fL (7.4-10.4); Monocytes # 1.9 10^3/uL (0.2-0.9); Neutrophils # 4.23 10^3/uL (1.8-7.7); Neutrophils % 18.2 %; Nucleated Red Blood Cells % 0 %; Platelet Count 194 10^3/cmm (130-400); Red Blood Count 5.11 10^6/uL (4.1-5.3); Red Cell Distribution Width 12.9 % (12.1-15.1); White Blood Count 23.2 10^3/uL (4.0-10.0)
[2020-08-17 13:18] LABS: Alanine Aminotransferase 22 U/L (0-33); Albumin Level 4.5 g/dL (3.5-5.2); Alkaline Phosphatase 105 IU/L (35-105); Anion Gap 13.4 (5-19); Aspartate Amino Transferase 15 U/L (0-32); Blood Urea Nitrogen 15 mg/dL (8-23); Calcium 9.5 mg/dL (8.5-10.5); Carbon Dioxide 29 mmol/L (22-29); Chloride 103 mmol/L (98-107); Globulin 2.8 g/dL (1.3-4.6); Glucose 124 mg/dL (65-115); Lactate Dehydrogenase 200 U/L (135-214); Osmolality Calculated 294 mOsm/kg (285-295); Potassium 4.4 mmol/L (3.5-5.1); Sodium 141 mmol/L (136-145); Total Bilirubin 0.5 mg/dL (0.15-1.2); Total Protein 7.3 g/dL (6.6-8.7)
[2020-08-17 14:11] LABS: Slide Review Slide Review Perform
--- NOTE | 2020-08-18 06:52 | ONC FU_ITS ---
Dr. Rendon Patient Follow-Up Note Patient: Felicitas Augustine Unit #: [id number]: 1940 Dicatated By: Satish Rendon M.D.Date of Visit:Aug 17, 2020 Onc Med Follow-up/Prog Note Chief Complaint: Chronic lymphocytic leukemia. History of Present Illness: This is a 80 year-old woman with chronic leukocytic leukemia. I had seen her initially on 05/02/2019 in regard to a persistent lymphocytosis. It had been noted during a hospitalization for syncope in March 2019. Her CBC at that time showed normal hemoglobin at 13.9 g with white blood cell count 14,000 and platelet count 233,000. The differential included 32% neutrophils, 59% lymphocytes, 6% monocytes, and 1% eosinophils. In reviewing her record in [facility], she was noted to have had at least a slight lymphocytosis dating as far back as 2013. Her evaluation in April 2019 included CBC showing hemoglobin 13.9 g with white blood cell count 13,600 and platelet count 218,000. The absolute lymphocyte count was 8200. Her comprehensive metabolic profile was unremarkable. LDH was in normal range at 201 U/L. Her whole blood flow cytometry showed a monotypic B-cell population which was positive for CD19, CD20, and CD5 and negative for CD10 and CD23. The phenotype was felt to be consistent with chronic lymphocytic leukemia/small lymphocytic lymphoma. By clinical evaluation, she appeared to have early stage disease (Pickens stage 0), and observation/expectant management was recommended. 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 She has hyperlipidemia and type II diabetes with peripheral neuropathy, and she has undergone placement of a permanent pacemaker for cardiac syncope. She had been diagnosed with myasthenia gravis approximately 6 years ago, but that diagnosis had more recently been disputed. Other medical illnesses include COPD, vitamin B12 deficiency, and vitamin D deficiency. She also had a suspected TIA/stroke. She has a history of smoking for 30 years, less than 1 pack of cigarettes daily. She quit smoking in 1999. She is seen for a follow-up visit. She has been feeling okay, though she says that her meningioma may be back. Apparently there was abnormality noted in that same area on a recent MRI. She is being followed by a neurologist. She has started having headaches again, though at this point they are light. Her activity is limited due to problems with balance. She says she does not move around much. Her ECOG score is 2. She has good appetite. She has no fever or night sweats. She says her voice is sometimes raspy and she has to clear her throat. She otherwise does not have cough and she says her breathing has been okay lately. She does not complain of chest pain. She has been having some acid reflux. She has constipation, but bowel function has been adequate with senna. She has overactive bladder. She has generalized joint pain and recently she has been having more severe pain in both arms. She complains that her feet burn all night. Medications: Advair Diskus 1 Puff(s) (of 250-50 mcg/dose) Aerosol Powder, Breath Activated Inhalation b.i.d., Albuterol Sulfate 1 Puff(s) (of 108 (90 base) mcg/act) Aerosol Powder, Breath Activated Inhalation PRN, Detrol 1 Tablet (of 2 mg) Oral daily, Fiber 1 Powder Oral PRN, Flonase 2 Kendrick(s) (of 50 mcg/act) Suspension Nasal daily, Furosemide 1 Tablet (of 20 mg) Oral daily PRN, Invokana 1 Tablet (of 300 mg) Oral daily, Levemir FlexTouch 40 Units (of 100 Units/mL) Subcutaneous daily, Levothyroxine Sodium 1 Tablet (of 100 mcg) Oral daily, Lidocaine 2 Patch(es) (of 5 %) Patch Topical daily, Lisinopril 1 Tablet (of 2.5 mg) Oral daily, MiraLax 1 Pack Oral PRN, Potassium Chloride ER (10 meq) Tablet, controlled release Oral Take as Directed, Proventil HFA 2 Puff(s) (of 108 (90 base) mcg/act) Aerosol, solution Inhalation four times a day, Simvastatin 1 Tablet (of 20 mg) Oral daily, Victoza 1 (18 mg/3mL) Subcutaneous daily Allergies: Pneumovax 23 and Sulfa Antibiotics. Vital Signs: Performed on Aug 17, 2020 14:23 Height - 62.50 in Weight - 144 lbs (HIGH) BSA - 1.67 sq.m BMI - 25.92 Temperature - 97.7 F (LOW) Pulse - 98 /min Respiration - 18 /min BP - 139/81 mm(hg) O2 Sat - 95 % (LOW) Pain - 4 Fatigue - 0 Physical Examination: Constitutional - She looks pretty good generally, Eyes - Sclerae nonicteric. Conjunctivae clear, ENMT - No lesions noted in the oral cavity, Hematologic/Lymphatic - No cervical, clavicular, or axillary adenopathy, Respiratory - Lungs sound clear with some decrease in air movement bilaterally, Cardiovascular - Heart rhythm is regular. There is no murmur, gallop, or rub noted, Abdomen - Mildly distended. Liver and spleen are not enlarged. There is no abdominal mass or ascites noted and there is no inguinal adenopathy, Extremities - No edema, Neurologic - No focal neurologic deficits noted. Lab/Imaging: Test performed on Aug 17, 2020 12:39 LDH (Total) 200 U/L Sodium 141 mmol/L Potassium 4.4 mmol/L Chloride 103 mmol/L CO2 29 mmol/L Anion Gap 13.4 BUN 15 mg/dL Creatinine 0.6 mg/dL Cr Clearance (Est) 79.68 mL/min Glucose 124 mg/dL Osmolality - Calculated 294 mOsm/kg Calcium 9.5 mg/dL Protein, Total 7.3 g/dL Albumin 4.5 g/dL Globulin 2.8 g/dL Bilirubin, Total 0.5 mg/dL ALT (SGPT) 22 U/L AST (SGOT) 15 U/L Alkaline Phosphatase 105 IU/L WBC 23.2 10 3/uL RBC 5.11 10 6/uL HGB 14.9 g/dL HCT 47.1 % MCV 92.2 fL MCH 29.2 pg MCHC 31.6 g/dL RDW 12.9 % Platelet Count 194 10 3/cmm MPV 9.5 fL Neutrophils 4.23 10 3/uL Lymphocytes 16.8 10 3/uL Monocytes 1.9 10 3/uL Eosinophils 0.2 10 3/uL Basophils 0.1 10 3/uL Neutrophil % 18.2 % Lymphocyte % 72.4 % Monocyte % 8.0 % Eosinophil % 0.7 % Basophils % 0.4 % NRBC % 0 % CBC Slide Review Slide Review Perform REVIEW AGREES WITH AUTOMATED DIFF Problem List: 1. Chronic lymphocytic leukemia, Pickens stage 0. 2. She has had multiple chronic complaints, the most significant of which have been weakness/fatigue and double vision. She was previously diagnosed with myasthenia gravis. 3. She had previously undergone multiple surgeries and radiation for a brainstem meningioma and she now has suspected recurrence by MRI. She is being followed by a neurologist. 4. Hyperlipidemia. 5. Type II diabetes with peripheral neuropathy. 6. She has had suspected TIA/stroke. 7. COPD. 8. She had recently started replacement therapy for B12 deficiency. 9. She also has vitamin D deficiency. 10. She underwent hysterectomy/bilateral salpingo-oophorectomy for cervical cancer. 11. She underwent total thyroidectomy for multiple papillary microcarcinomas in 2007. She had subsequent radioactive iodine ablation. 12. She underwent placement of permanent pacemaker for cardiac syncope on 04/05/2019. Problems Addressed with this Encounter and Plan: 1. Chronic lymphocytic leukemia diagnosed by whole blood flow cytometry in April 2019. She had early stage disease (Pickens stage 0), and observation/expectant management was recommended. During follow-up she has had numerous complaints and she has had somewhat limited activity tolerance, but that all appears unrelated to the chronic lymphocytic leukemia. By clinical evaluation, she still appears to have early stage disease and she will just continue on observation/expectant management. I will see her again in 6 months. 2. She is having significant acid reflux symptoms for which she is currently not on medication. She will be given a prescription for omeprazole 20 mg daily, as it has been very effective for her in the past. Signed By: Satish Rendon M.D. <<Signature on File>>
== END 2020-08-17 12:28 | disposition home or self-care (01) ==
LOC: ONCMED 12:31
PROVIDERS: PCP Nurse Practitioner; Visit Provider Internal Medicine Medical Oncology
DX: C91.10 Chronic lymphocytic leukemia of B-cell type not having achieved remission (principal); G70.00 Myasthenia gravis without (acute) exacerbation; E78.5 Hyperlipidemia, unspecified; E11.42 Type 2 diabetes mellitus with diabetic polyneuropathy; J44.9 Chronic obstructive pulmonary disease, unspecified; D51.9 Vitamin B12 deficiency anemia, unspecified; E55.9 Vitamin D deficiency, unspecified; R55 Syncope and collapse; Z95.0 Presence of cardiac pacemaker; Z86.73 Personal history of transient ischemic attack (TIA), and cerebral infarction without residual deficits; Z90.710 Acquired absence of both cervix and uterus; Z85.41 Personal history of malignant neoplasm of cervix uteri; Z85.841 Personal history of malignant neoplasm of brain; Z79.899 Other long term (current) drug therapy
CPT/HCPCS: 36415; 80053; 83615; 85025; 99214

== ENCOUNTER → 2020-08-28 11:43 | Outpatient (BNVA) | payer MEDICARE, OTHER, SELFPAY | PROVIDERS: PCP Nurse Practitioner; Visit Provider Nurse Practitioner Family | DX: N39.0 Urinary tract infection, site not specified (principal); L03.115 Cellulitis of right lower limb; F17.211 Nicotine dependence, cigarettes, in remission | CPT/HCPCS: 81003; 87077; 87086; 87184 ==

== ENCOUNTER → 2020-09-29 11:13 | Outpatient (BNVA) | payer MEDICARE, OTHER, SELFPAY | PROVIDERS: PCP Nurse Practitioner; Visit Provider Nurse Practitioner | DX: E11.65 Type 2 diabetes mellitus with hyperglycemia (principal); Z79.4 Long term (current) use of insulin; R26.2 Difficulty in walking, not elsewhere classified | CPT/HCPCS: 80053; 82607; 83036 ==

== ENCOUNTER → 2020-12-30 10:24 | Outpatient (BNVA) | payer MEDICARE, OTHER, SELFPAY | PROVIDERS: PCP Nurse Practitioner; Visit Provider Nurse Practitioner | DX: E11.65 Type 2 diabetes mellitus with hyperglycemia (principal); Z79.4 Long term (current) use of insulin; E03.9 Hypothyroidism, unspecified; E55.9 Vitamin D deficiency, unspecified; E78.2 Mixed hyperlipidemia | CPT/HCPCS: 80053; 80061; 81000; 82306; 83036; 84443 ==

== ENCOUNTER → 2021-03-31 12:06 | Outpatient (BNVA) | payer MEDICARE, OTHER, SELFPAY | PROVIDERS: PCP Nurse Practitioner; Visit Provider Nurse Practitioner | DX: E11.65 Type 2 diabetes mellitus with hyperglycemia (principal); Z79.4 Long term (current) use of insulin; E55.9 Vitamin D deficiency, unspecified; J44.9 Chronic obstructive pulmonary disease, unspecified | CPT/HCPCS: 71046; 81003 ==

== ENCOUNTER → 2021-04-09 11:52 | Outpatient (BNVA) | payer MEDICARE, OTHER, SELFPAY | PROVIDERS: PCP Nurse Practitioner; Visit Provider Nurse Practitioner | DX: E11.65 Type 2 diabetes mellitus with hyperglycemia (principal); E55.9 Vitamin D deficiency, unspecified; J44.9 Chronic obstructive pulmonary disease, unspecified; Z79.4 Long term (current) use of insulin; N39.0 Urinary tract infection, site not specified; R26.2 Difficulty in walking, not elsewhere classified | CPT/HCPCS: 80053; 80061; 82306; 83036; 84443; 85025 ==

== ENCOUNTER → 2021-08-10 14:35 | Outpatient (BNVA) | payer MEDICARE, OTHER, SELFPAY | PROVIDERS: PCP Nurse Practitioner; Visit Provider Nurse Practitioner | DX: Z20.822 Contact with and (suspected) exposure to COVID-19 (principal) | CPT/HCPCS: 87635 ==

== ENCOUNTER → 2021-08-24 10:20 | Outpatient (BNVA) | payer MEDICARE, OTHER, SELFPAY | PROVIDERS: PCP Nurse Practitioner; Visit Provider Nurse Practitioner | DX: E11.65 Type 2 diabetes mellitus with hyperglycemia (principal); Z79.4 Long term (current) use of insulin; J44.9 Chronic obstructive pulmonary disease, unspecified; R10.12 Left upper quadrant pain | CPT/HCPCS: 80053; 81000; 82150; 83690; 83880; 84443 ==

== ENCOUNTER 2021-08-27 09:32 | Outpatient (CLI) | payer MEDICARE, OTHER, SELFPAY ==
[2021-08-27 09:55] LABS: Hematocrit 44.9 % (37.0-47.0); Hemoglobin 14.1 g/dL (11.5-15.3); Mean Corpuscular HGB Conc 31.4 g/dL (30.0-36.0); Mean Corpuscular Hemoglobin 29.8 pg (28.0-34.0); Mean Corpuscular Volume 94.9 fl (81-99); Mean Platelet Volume 9.3 fL (7.4-10.4); Platelet Count 177 10^3/cmm (130-400); Red Blood Count 4.73 10^6/uL (4.1-5.3); Red Cell Distribution Width 13.2 % (12.1-15.1)
[2021-08-27 10:21] LABS: Slide Review Slide Review Perform
[2021-08-27 10:23] LABS: White Blood Count 40.9 10^3/uL (4.0-10.0)
[2021-08-27 10:25] LABS: Absolute Neutrophil 4.1 10^3/cmm (1.4-6.5); Absolute Segmented Neutrophil 3.3 10/cmm (1.6-7.1); Band Neutrophils Absolute 0.8 10^3/cmm (0.0-1.2); Eosinophils 0 %; Lymphocytes 55 %; Lymphocytes Absolute 36.4 10^3/cmm (1.2-3.4); Monocytes Absolute 0.4 10^3/cmm (0.1-0.6); Platelet Estimate Normal (Normal); Segmented Neutrophils 8 %; Total Cells Counted 100 (0-100)
[2021-08-27 10:39] LABS: Estmated Average Glucose 137; Hemoglobin A1C 6.4 % (4.0-6.0)
== END 2021-08-27 09:33 | disposition home or self-care (01) ==
LOC: LAB 09:36
PROVIDERS: PCP Nurse Practitioner; Visit Provider Nurse Practitioner
DX: E11.65 Type 2 diabetes mellitus with hyperglycemia (principal); Z79.4 Long term (current) use of insulin
CPT/HCPCS: 36415; 83036; 85007; 85025

== ENCOUNTER 2021-10-06 09:24 | Outpatient (CLI) | payer MEDICARE, OTHER, SELFPAY ==
--- NOTE | 2021-10-06 | CT_ITS ---
WS: [id number] CT CHEST, ABDOMEN, AND PELVIS TECHNIQUE: Noncontrast CT of the chest, abdomen, and pelvis with coronal and sagittal reformatted byron ges. CLINICAL INFORMATION: J44.9 - Chronic obstructive pulmonary disease, unspecified COMPARISON: CT chest [address] abdomen pelvis 2013 DLP: 1149.[address] scans at [facility] use at least one of these dose optimization techniques: automated e xposure control; mA and/or kV adjustment per patient size (includes targeted exams where dose is matc hed to clinical indication); or iterative reconstruction. CT CHEST: Moderate chronic emphysematous changes. No acute pulmonary infiltrates. No focal pneumonia or pleural fluid. Prior LEFT thoracotomy. A few calcified granulomas. Fibrosis RIGHT middle lobe. Micronodular fibrotic infiltrate in LEFT upper lobe is unchanged since 2017. Tiny noncalcified subpleural nodule LEFT upper lobe. Aortic calcification. Normal caliber thoracic ao rta. Coronary calcification. No mediastinal or hilar lymphadenopathy. No axillary lymphadenopathy. CT ABDOMEN AND PELVIS: Mild hepatomegaly. Prior cholecystectomy. Normal noncontrast spleen with mild splenomegaly. Spleen me asures 11.2 cm [id number]. Normal GE junction. Adrenal glands are normal. Upper pole RIGHT renal lesion is enlarged compared to 2014 is not definite ly cystic. Recommend further evaluation with ultrasound. A few subcentimeter nonobstructing renal par enchymal calculi. No hydronephrosis in either kidney. Pelvic phleboliths. Fatty atrophy of the pancre as. Noncontrast pancreas appears normal. Normal caliber abdominal aorta. Mild aortic calcification. Normal sigmoid colon. Transverse colon constipation. No pelvic or inguinal lymphadenopathy. Slight anterolisthesis L4 on L5. Mild disc bulging L4-L5 and L 5-S1. CT/CT chest abd pel wo con IMPRESSION: 1. Moderate chronic emphysematous changes. No acute pulmonary infiltrates. 2. No new suspicious pulmonary parenchymal opacities. 3. No mediastinal or hilar lymphadenopathy. 4. Mild hepatomegaly and splenomegaly. 5. Indeterminate low-attenuation 11 mm lesion upper pole RIGHT kidney increase d compared to previous. This is not definitely cystic and recommend ultrasound for further evaluation. 6. Grade 1 anterolisthesis L4 on L5 with mild disc bulging L4-L5 and L5-S1. Th is is increased compared to 2014. 7. Previous described complex RIGHT adnexal mass not seen today. This may have been resected in the interim.
[2021-10-06] MEDS: iohexol 300 mg/mL 50 mL Btl PO (09:49)
== END 2021-10-06 09:25 | disposition home or self-care (01) ==
LOC: RAD 09:27
PROVIDERS: PCP Nurse Practitioner; Visit Provider Nurse Practitioner
DX: J44.9 Chronic obstructive pulmonary disease, unspecified (principal); R10.12 Left upper quadrant pain; R16.2 Hepatomegaly with splenomegaly, not elsewhere classified; N28.9 Disorder of kidney and ureter, unspecified
CPT/HCPCS: 71250; 74176

== ENCOUNTER → 2021-10-11 11:00 | Outpatient (BNVA) | payer MEDICARE, OTHER, SELFPAY | PROVIDERS: PCP Nurse Practitioner; Visit Provider Internal Medicine Cardiovascular Disease | DX: R07.9 Chest pain, unspecified (principal); I10 Essential (primary) hypertension; Z87.891 Personal history of nicotine dependence | CPT/HCPCS: 99214 ==

== ENCOUNTER → 2021-10-15 11:53 | Outpatient (BNVA) | payer MEDICARE, OTHER, SELFPAY | PROVIDERS: PCP Nurse Practitioner; Visit Provider Internal Medicine Cardiovascular Disease | DX: E11.65 Type 2 diabetes mellitus with hyperglycemia (principal); Z79.4 Long term (current) use of insulin; J44.9 Chronic obstructive pulmonary disease, unspecified; R06.02 Shortness of breath | CPT/HCPCS: 80048; 83880 ==

== ENCOUNTER 2021-10-19 08:04 | Outpatient (CLI) | payer MEDICARE, OTHER, SELFPAY ==
[2021-10-19 09:08] LABS: Hematocrit 43.6 % (37.0-47.0); Hemoglobin 14.3 g/dL (11.5-15.3); Mean Corpuscular HGB Conc 32.8 g/dL (30.0-36.0); Mean Corpuscular Hemoglobin 29.4 pg (28.0-34.0); Mean Corpuscular Volume 89.5 fl (81-99); Mean Platelet Volume 9.6 fL (7.4-10.4); Platelet Count 195 10^3/cmm (130-400); Red Blood Count 4.87 10^6/uL (4.1-5.3)
--- NOTE | 2021-10-19 09:14 | XRR_ITS ---
PROCEDURE INFORMATION: Exam: XR Abdomen Exam date and time: 10/19/2021 9:21 AM Age: 81 years old Clinical indication: Abdominal pain; Generalized; Additional info: R10.12 - left upper quadrant pain TECHNIQUE: Imaging protocol: XR of the abdomen. Views: Frontal supine view of the abdomen. 1 View. COMPARISON: CT chest abd pel wo con 10/06/2021 11:12 AM FINDINGS: Gastrointestinal tract: Normal. No bowel dilation. Evidence evidence of cholecystectomy is seen. The bowel gas pattern is nonspecific. Calcified densities seen in the left lower pelvis. Organs: Caliceal stones are present in the proximal collecting system of the left kidney Bones/joints: Unremarkable. XR/XR abdomen 1V* [id number] IMPRESSION: 1. No acute GI abnormality. 2. Caliceal stones left kidney 3. Status post cholecystectomy. 4. Calcified density left lower pelvis
--- NOTE | 2021-10-19 09:14 | XRR_ITS ---
PROCEDURE INFORMATION: Exam: XR Chest Exam date and time: 10/19/2021 9:21 AM Age: 81 years old Clinical indication: Condition or disease; Lung condition and disease; Copd; Complications not specified; Additional info: J44.9 - chronic obstructive pulmonary disease, unspecified TECHNIQUE: Imaging protocol: XR of the chest. Views: 2 views. COMPARISON: CT chest abd pel wo con 10/06/2021 11:12 AM FINDINGS: Tubes, catheters and devices: Cardiac device left anterior chest. Lungs: Granuloma right upper lobe stable since prior the lungs are otherwise clear. No consolidation. Pleural spaces: Unremarkable. No pleural effusion. No pneumothorax. Heart/Mediastinum: Unremarkable. No cardiomegaly. Bones/joints: Unremarkable. XR/XR chest 2V* [id number] IMPRESSION: 1. No acute findings. 2. Cardiac device left anterior chest. 3. Right upper lobe granuloma
[2021-10-19 09:27] LABS: Alanine Aminotransferase 25 U/L (0-33); Albumin Level 4.5 g/dL (3.5-5.2); Alkaline Phosphatase 93 IU/L (35-105); Anion Gap 13.4 (5-19); Aspartate Amino Transferase 23 U/L (0-32); Blood Urea Nitrogen 15 mg/dL (8-23); Calcium 9.3 mg/dL (8.5-10.5); Carbon Dioxide 28 mmol/L (22-29); Chloride 102 mmol/L (98-107); Globulin 1.8 g/dL (1.3-4.6); Glucose 158 mg/dL (65-115); Lactate Dehydrogenase 225 U/L (135-214); Lipase 99 U/L (13-60); Osmolality Calculated 292 mOsm/kg (285-295); Potassium 4.4 mmol/L (3.5-5.1); Sodium 139 mmol/L (136-145); Total Bilirubin 0.3 mg/dL (0.15-1.2); Total Protein 6.3 g/dL (6.6-8.7)
[2021-10-19 09:38] LABS: Erythrocyte Sedimentation Rate 3 mm/hr (0-15)
[2021-10-19 10:51] LABS: LAB Peripheral Smear Sent for Review; White Blood Count 36.2 10^3/uL (4.0-10.0)
[2021-10-19 10:52] LABS: Absolute Eosinophils 0.3 10^3/cmm (0.0-0.7); Absolute Segmented Neutrophil 3.6 10/cmm (1.6-7.1); Band Neutrophils Absolute 0.7 10^3/cmm (0.0-1.2); Eosinophils 1 %; Lymphocytes 79 %; Monocytes Absolute 1.4 10^3/cmm (0.1-0.6); Segmented Neutrophils 10 %; Slide Review Slide Review Perform
[2021-10-19 10:53] LABS: Total Cells Counted 100 (0-100)
[2021-10-19 10:54] LABS: Absolute Neutrophil 4.3 10^3/cmm (1.4-6.5); Platelet Estimate Normal (Normal)
[2021-10-19 11:32] LABS: Smudge Cells 1+
--- NOTE | 2021-10-19 14:34 | ONC FU_ITS ---
Dr. Rendon Patient Follow-Up Note Patient: Felicitas Augustine Unit #: [id number]: [id number] Dicatated By: Satish Rendon M.D.Date of Visit:Oct 19, 2021 Onc Med Follow-up/Prog Note Chief Complaint: Chronic lymphocytic leukemia. History of Present Illness: This is a 81 year-old woman with chronic leukocytic leukemia. I had seen her initially on 05/02/2019 in regard to a persistent lymphocytosis. It had been noted during a hospitalization for syncope in March 2019. Her CBC at that time showed normal hemoglobin at 13.9 g with white blood cell count 14,000 and platelet count 233,000. The differential included 32% neutrophils, 59% lymphocytes, 6% monocytes, and 1% eosinophils. In reviewing her record in [facility], she was noted to have had at least a slight lymphocytosis dating as far back as 2013. Her evaluation in April 2019 included CBC showing hemoglobin 13.9 g with white blood cell count 13,600 and platelet count 218,000. The absolute lymphocyte count was 8200. Her comprehensive metabolic profile was unremarkable. LDH was in normal range at 201 U/L. Her whole blood flow cytometry showed a monotypic B-cell population which was positive for CD19, CD20, and CD5 and negative for CD10 and CD23. The phenotype was felt to be consistent with chronic lymphocytic leukemia/small lymphocytic lymphoma. By clinical evaluation, she appeared to have early stage disease (Pickens stage 0), and observation/expectant management was recommended. As of her follow-up visit in August 2020 she continued to have somewhat marginal performance status but there had been no significant progression of the chronic lymphocytic leukemia, and she continued expectant management. 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 She has hyperlipidemia and type II diabetes with peripheral neuropathy, and she has undergone placement of a permanent pacemaker for cardiac syncope. She had been diagnosed with myasthenia gravis approximately 6 years ago, but that diagnosis had more recently been disputed. Other medical illnesses include COPD, vitamin B12 deficiency, and vitamin D deficiency. She also had a suspected TIA/stroke. She has a history of smoking for 30 years, less than 1 pack of cigarettes daily. She quit smoking in 1999. INTERIM HISTORY: In August 2021 she had seen Adam Anguiano with multiple complaints, including pain in the upper abdomen. Her laboratory studies on 08/24/2021 included a comprehensive metabolic profile which showed normal renal function, normal bilirubin, and normal liver enzymes. Her lipase was mildly elevated at 73 U/L with amylase normal at 36 U/L. Her CBC on 08/27/2021 showed increase in the white blood cell count of 40,900 with absolute neutrophil count 4100 and absolute lymphocyte count 36,400. Hemoglobin was normal at 14.1 g with hematocrit 44.9% and the platelet count was normal 177,000. Noncontrast CT scans of the chest, abdomen, and pelvis on 10/06/2021 showed moderate chronic emphysematous changes with no acute pulmonary infiltrates and no suspicious pulmonary parenchymal opacities. There was no mediastinal or hilar lymphadenopathy. There was mild hepatomegaly and splenomegaly noted. A low-attenuation right upper pole renal lesion measuring 11 mm was noted to have increased and as it was not definitely cystic, further evaluation with ultrasound was recommended. A previously described complex right adnexal mass was not seen. There was evidence for fatty atrophy of the pancreas and there was evidence for transverse colon constipation. There was no retroperitoneal, pelvic, or inguinal lymphadenopathy. She is seen for a follow-up visit. Her main complaint is that she continues to have a lot of trouble with her stomach, including abdominal pain, bloating, and constipation. Subsequent to the CT scan, she was given laxative therapy with combination of milk of magnesia and senna, and her bowels did move to the point that she was having liquid stools. However, since then, she has continued to have constipation and abdominal pain. She complains that she has no energy that she is wore out. She has very limited activity. She says her legs do not support her very well. Her ECOG score is 3. She says she still has appetite. She initially had lost weight, but she is now pretty much back to her normal range. She has not had fever. She has had some sweating at night. She sometimes has a little sinus drainage, and she does complain of cough. She is short of breath at times, but that is chronic. She has not been having chest pain. She has stress incontinence. She has joint pain, mainly in her knees. She does not complain of headache or dizziness. She has neuropathy, worse in her feet than her hands. She says it is severe in her right foot and moderate in her left. She complains that she bruises very easily. Medications: Advair Diskus 1 Puff(s) (of 250-50 mcg/dose) Aerosol Powder, Breath Activated Inhalation b.i.d., Albuterol Sulfate 1 Puff(s) (of 108 (90 base) mcg/act) Aerosol Powder, Breath Activated Inhalation PRN, Detrol 1 Tablet (of 2 mg) Oral daily, Fiber 1 Powder Oral PRN, Flonase 2 Lansing(s) (of 50 mcg/act) Suspension Nasal daily, Furosemide 1 Tablet (of 20 mg) Oral daily PRN, Levemir FlexTouch 40 Units (of 100 Units/mL) Subcutaneous daily, Levothyroxine Sodium 1 Tablet (of 100 mcg) Oral daily, Lidocaine 2 Patch(es) (of 5 %) Patch Topical daily, Lisinopril 1 Tablet (of 2.5 mg) Oral daily, metFORMIN HCl ER 1 Tablet (of 500 mg) Tablet SR 24 HR Oral b.i.d., MiraLax 1 Pack Oral PRN, Potassium Chloride ER (10 meq) Tablet, controlled release Oral Take as Directed, Proventil HFA 2 Puff(s) (of 108 (90 base) mcg/act) Aerosol, solution Inhalation four times a day, Simvastatin 1 Tablet (of 20 mg) Oral daily, Victoza 1 (18 mg/3mL) Subcutaneous daily Allergies: Pneumovax 23 and Sulfa Antibiotics. Vital Signs: Performed on Oct 19, 2021 08:23 Height - 62.50 in Weight - 141.0 lbs (LOW) BSA - 1.66 sq.m BMI - 25.38 Temperature - 97.6 F (LOW) Pulse - 88 /min Respiration - 18 /min BP - 134/78 mm(hg) O2 Sat - 99 % Pain - 4 Fatigue - 9 Physical Examination: Constitutional - She appears generally weak, but not acutely ill, Eyes - Sclerae nonicteric. Conjunctivae clear, ENMT - No lesions noted in the oral cavity, Hematologic/Lymphatic - No cervical, clavicular, or axillary adenopathy, Respiratory - Lungs show diminished breath sounds at the left base, Cardiovascular - Heart rhythm is irregular. There is no murmur, gallop, or rub noted, Chest - There is some focal tenderness in the right lateral chest wall, just below the axilla, Abdomen - Mildly distended and firm. There is significant tenderness in the upper abdomen. Liver and spleen are not enlarged. There is no abdominal mass or ascites noted. Bowel sounds are normal. There is no inguinal adenopathy, Extremities - Mild lower extremity edema, Neurologic - No focal neurologic deficits noted. Lab/Imaging: Test performed on Oct 19, 2021 08:55 LDH (Total) 225 U/L Lipase 99 U/L Sodium 139 mmol/L Potassium 4.4 mmol/L Chloride 102 mmol/L CO2 28 mmol/L Anion Gap 13.4 BUN 15 mg/dL Creatinine 0.7 mg/dL Cr Clearance (Est) 65.8000 mL/min Glucose 158 mg/dL Osmolality - Calculated 292 mOsm/kg Calcium 9.3 mg/dL Protein, Total 6.3 g/dL Albumin 4.5 g/dL Globulin 1.8 g/dL Bilirubin, Total 0.3 mg/dL ALT (SGPT) 25 U/L AST (SGOT) 23 U/L Alkaline Phosphatase 93 IU/L ESR (Sed Rate) 3 mm/hr WBC 36.2 10 3/uL Manual Segs % 10 % Manual Bands % 2.0 % RBC 4.87 10 6/uL HGB 14.3 g/dL Manual Lymphs % 79 % Atypical Lymphs % 4.0 % HCT 43.6 % MCV 89.5 fl Total Cells Counted 100 Manual Monos % 4.0 % MCH 29.4 pg Manual Eos % 1 % MCHC 32.8 g/dL Manual Basos % 0.0 % RDW 13.0 % Platelet Count 195 10 3/cmm MPV 9.6 fL CBC Slide Review Slide Review Perform Platelet Estimate Normal Manual Segs Abs 3.6 10/cmm Manual Bands Abs 0.7 10 3/cmm Manual Neutrophils Abs 4.3 10 3/cmm Manual Lymphocytes Abs 30.0 10 3/cmm Manual Monocytes Abs 1.4 10 3/cmm Manual Eosinophils Abs 0.3 10 3/cmm Manual Basophils Abs 0.0 10 3/cmm Problem List: 1. Chronic lymphocytic leukemia, Pickens stage 0. 2. She has had multiple chronic complaints, the most significant of which have been weakness/fatigue and double vision. She was previously diagnosed with myasthenia gravis. 3. She had previously undergone multiple surgeries and radiation for a brainstem meningioma and she now has suspected recurrence by MRI. She is being followed by a neurologist. 4. Hyperlipidemia. 5. Type II diabetes with peripheral neuropathy. 6. She has had suspected TIA/stroke. 7. COPD. 8. She had recently started replacement therapy for B12 deficiency. 9. She also has vitamin D deficiency. 10. She underwent hysterectomy/bilateral salpingo-oophorectomy for cervical cancer. 11. She underwent total thyroidectomy for multiple papillary microcarcinomas in 2007. She had subsequent radioactive iodine ablation. 12. She underwent placement of permanent pacemaker for cardiac syncope on 04/05/2019. Problems Addressed with this Encounter and Plan: 1. Chronic lymphocytic leukemia diagnosed by whole blood flow cytometry in April 2019. She had early stage disease (Pickens stage 0), and observation/expectant management was recommended. During follow-up there has been some gradual increase in her lymphocyte count, but she still appears to have Pickens stage 0 disease and there appears to be no indication that the chronic lymphocytic leukemia is symptomatic. As such, she continues on expectant management for the CLL. 2. For the past couple of months she has had ongoing problems with abdominal pain, postprandial abdominal bloating, and constipation. She has a mildly elevated serum lipase. There were no significant acute findings noted on noncontrast CT scans of the chest, abdomen, and pelvis. She will be evaluated today with abdominal flatplate and upright. Depending on the findings, I will likely arrange for her to see Dr. Hathaway, as her last colonoscopy was done in 2013. Signed By: Satish Rendon M.D. <<Signature on File>>
== END 2021-10-19 08:05 | disposition home or self-care (01) ==
PROVIDERS: PCP Nurse Practitioner; Visit Provider Internal Medicine Medical Oncology
DX: C91.10 Chronic lymphocytic leukemia of B-cell type not having achieved remission (principal); J44.9 Chronic obstructive pulmonary disease, unspecified; R10.12 Left upper quadrant pain; J84.10 Pulmonary fibrosis, unspecified; N20.0 Calculus of kidney; G70.00 Myasthenia gravis without (acute) exacerbation; E78.5 Hyperlipidemia, unspecified; E11.42 Type 2 diabetes mellitus with diabetic polyneuropathy; E53.8 Deficiency of other specified B group vitamins; E55.9 Vitamin D deficiency, unspecified; Z79.899 Other long term (current) drug therapy
CPT/HCPCS: 36415; 71046; 74018; 80053; 83615; 83690; 85007; 85025; 85651; 99214

== ENCOUNTER → 2021-10-21 09:43 | Outpatient (BNVA) | payer MEDICARE, OTHER, SELFPAY | PROVIDERS: PCP Nurse Practitioner; Visit Provider Nurse Practitioner | DX: E11.65 Type 2 diabetes mellitus with hyperglycemia (principal); Z79.4 Long term (current) use of insulin | CPT/HCPCS: 81000 ==

== ENCOUNTER 2021-10-27 12:06 | Outpatient (CLI) | payer MEDICARE, OTHER, SELFPAY ==
--- NOTE | 2021-10-27 12:15 | US_ITS ---
WS: [id number] RENAL ULTRASOUND HISTORY: N28.9 - Disorder of kidney and ureter, unspecified COMPARISON: 12/08/2016 TECHNIQUE: 2-D and color Doppler imaging of the kidney submitted. Right kidney: 9.3 cm x 4.1 cm x 4.6 cm. Normal echogenicity with no hydronephrosis or mass. There is a small exophytic cyst from the superior pole measuring 1.1 x 1.2 x 1.5 cm. This was also present on the prior study from 2017 but appears sl ightly less cystic today. No increase in size. Left kidney: 9.4 cm x 3.5 cm x 4.8 cm. Normal size and echogenicity. Hyperechoic focus measures 6 x 3 x 8 mm in the mid kidney is probably a renal calcification. There is no obstruction. Aorta: Normal. Urinary Bladder: Normal distention. US/US renal BI* [id number] IMPRESSION: 1. Exophytic mass from the upper pole RIGHT kidney is not a simple cyst. There was a cyst identified at this location on a prior ultrasound without increase in size. This may contain increased protein content. As there has been a slight change in the density consider 3-4 month ultrasound follow-up to document stab ility. Favor this is probably a complex cyst. 2. Cortical calcification LEFT kidney, no hydronephrosis.
== END 2021-10-27 12:07 | disposition home or self-care (01) ==
PROVIDERS: PCP Nurse Practitioner; Visit Provider Nurse Practitioner
DX: N28.9 Disorder of kidney and ureter, unspecified (principal); N20.0 Calculus of kidney
CPT/HCPCS: 76770

== ENCOUNTER 2021-11-03 13:57 | Emergency (ER) | payer MEDICARE, OTHER, SELFPAY ==
[2021-11-03 14:05] VITALS: BP 115/69; PULSE 76; RESP 18; TEMP 36.8; O2SAT 96
--- NOTE | 2021-11-03 14:32 | CTR_ITS ---
PROCEDURE INFORMATION: Exam: CT Abdomen And Pelvis With Contrast Exam date and time: 11/03/2021 4:01 PM Age: 81 years old Clinical indication: Nausea; Abdominal pain; Prior surgery; Surgery type: Gb; Additional info: Abd pain TECHNIQUE: Imaging protocol: Computed tomography of the abdomen and pelvis with contrast. Radiation optimization: All CT scans at this facility use at least one of these dose optimization techniques: automated exposure control; mA and/or kV adjustment per patient size (includes targeted exams where dose is matched to clinical indication); or iterative reconstruction. Contrast material: OMNI 350; Contrast volume: 95 ml; Contrast route: INTRAVENOUS (IV); COMPARISON: CT chest abd pel wo con 10/06/2021 11:12 AM RADIATION DOSE METRICS: Total DLP (mGy-cm): 1298.06 FINDINGS: Lungs: Bibasilar atelectasis and right middle lobe atelectasis versus minimal infiltrate. Liver: Normal. No mass. Gallbladder and bile ducts: Cholecystectomy. Common bile duct dilated to 16.5 mm, similar to prior exam along with mild dilation of the pancreatic duct in the pancreatic head measuring 4 mm, similar to prior exam, findings may be related to prior cholecystectomy, MRCP could further evaluate these as clinically indicated. Pancreas: See Gallbladder and bile ducts finding. Spleen: Normal. No splenomegaly. Adrenal glands: Normal. No mass. Kidneys and ureters: Right kidney cyst, negative for follow-up advised. Stomach and bowel: Unremarkable. No obstruction. No mucosal thickening. Appendix: No evidence of appendicitis. Intraperitoneal space: Unremarkable. No free air. No significant fluid collection. Arteries: Unremarkable. No abdominal aortic aneurysm. Lymph nodes: Scattered prominent subcentimeter short axis periaortic lymph nodes, similar to prior exam, nonspecific. Urinary bladder: Unremarkable as visualized. Reproductive: Unremarkable as visualized. Bones/joints: Unremarkable. No acute fracture. Soft tissues: Unremarkable. CT/CT abdomen pelvis w con* [id number] IMPRESSION: 1. Negative for acute inflammatory process in the abdomen or pelvis. 2. Bibasilar atelectasis and right middle lobe atelectasis versus minimal infiltrate. 3. Cholecystectomy. 4. Common bile duct dilated to 16.5 mm, similar to prior exam along with mild dilation of the pancreatic duct in the pancreatic head measuring 4 mm, similar to prior exam, findings may be related to prior cholecystectomy, MRCP could further evaluate these as clinically indicated. 5. Scattered prominent subcentimeter short axis periaortic lymph nodes, similar to prior exam, nonspecific. 6. Right kidney cyst, negative for follow-up advised.
--- NOTE | 2021-11-03 14:33 | ECG_ITS ---
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 Measurements Intervals [place] Rate: 66 P: 59 NM: 171 QRS: -55 QRSD: 91 T: 59 QT: 414 QTc: 436 Interpretive Statements SINUS RHYTHM PATTERN CONSISTENT WITH PULMONARY DISEASE INCOMPLETE RIGHT BUNDLE BRANCH BLOCK [90+ ms QRS DURATION, TERMINAL R IN V1/V2, 40+ ms S IN I/aVL/V4/V5/V6] LEFT ANTERIOR FASCICULAR BLOCK [QRS AXIS <= -45, QR IN I, RS IN II] Compared to ECG 02/26/2020 18:04:00 Incomplete right bundle-branch block now present Left anterior fascicular block now present Atrial-paced complex(es) or rhythm no longer present Left-axis deviation no longer present Myocardial infarct finding no longer present ST (T wave) deviation no longer present Electronically Signed On 11-03-2021 16:57:11 CDT by Alexander Victoria M.D. [id number]
[2021-11-03 14:57] LABS: Hematocrit 44.5 % (37.0-47.0); Hemoglobin 14.5 g/dL (11.5-15.3); Mean Corpuscular HGB Conc 32.6 g/dL (30.0-36.0); Mean Corpuscular Hemoglobin 29.1 pg (28.0-34.0); Mean Corpuscular Volume 89.2 fl (81-99); Mean Platelet Volume 9.4 fL (7.4-10.4); Platelet Count 200 10^3/cmm (130-400); Red Blood Count 4.99 10^6/uL (4.1-5.3)
[2021-11-03 15:05] VITALS: RESP 17; O2SAT 96
[2021-11-03 15:05] LABS: Alanine Aminotransferase 25 U/L (0-33); Albumin Level 4.6 g/dL (3.5-5.2); Alkaline Phosphatase 92 IU/L (35-105); Anion Gap 16.9 (5-19); Aspartate Amino Transferase 25 U/L (0-32); Blood Urea Nitrogen 12 mg/dL (8-23); Calcium 8.7 mg/dL (8.5-10.5); Carbon Dioxide 26 mmol/L (22-29); Chloride 100 mmol/L (98-107); Creatinine Clr Calc Pharmacy 50.0237; Glucose 108 mg/dL (65-115); Lipase 25 U/L (13-60); Osmolality Calculated 288 mOsm/kg (285-295); Potassium 3.9 mmol/L (3.5-5.1); Sodium 139 mmol/L (136-145); Total Bilirubin 0.5 mg/dL (0.15-1.2); Total Protein 6.6 g/dL (6.6-8.7)
[2021-11-03] MEDS: morphine 4 mg/mL SDV 1 mL IVP (15:05)
[2021-11-03] MEDS: ondansetron 2 mg/ML SDV 2 mL 4 MG IVP (15:05)
[2021-11-03 15:06] LABS: Lactate (Lactic Acid level) 0.9 mmol/L (0.5-2.2)
--- NOTE | 2021-11-03 15:24 | ED_ITS ---
HPI - Abdominal Pain General: Chief Complaint: Abdominal Pain Stated Complaint: Severe ABD Pain Not eating alot Time Seen by Provider: 11/03/21 14:31 Source: patient Mode of arrival: ambulatory Limitations: no limitations History of Present Illness: 81-year-old female presents to the emergency room with complaint of abdominal pain. This is been chronic in nature and going on for years according to the patient (she had told the nurse it was months) Recently has been worsening. She denies any fever sweats chills some been very nauseous she has had regular bowel movements however. She denies any dysuria urgency or frequency no hematochezia melena hematemesis or coffee-ground emesis. Patient has a history of myasthenia gravis. 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 She also previously had cervical cancer for which she is undergone bilateral salpingo-oophorectomy hysterectomy MD elicited complaint: abdominal pain Pertinent past history: other (Chronic abdominal pain) Onset (ago): year(s) Pain Consistency: intermittent and colicky Location: Diffuse Severity: mild Quality: cramping Exacerbating factors: nothing Relieving factors: nothing Associated Symptoms: Reports nausea; Denies bloating, change in bowel habits, change in stool character, chills, coffee ground emesis, constipation, GI cramping, diarrhea, dyspepsia, dysuria, excessive flatus, fever(s), heartburn, hematochezia, hematuria, hematemesis, fecal incontinence, loose stools, melena, poor appetite, syncope and vomiting Review of Systems Const: Denies: fever(s) or chills ENMT: Denies: throat pain, ear or mastoid pain, nasal discharge or nasal congestion Card: Denies: chest pain, palpitations, irregular heart rhythm, edema or s yncope Resp: Denies: dyspnea, productive cough or non-productive cough GI: Reports: abdominal pain and nausea; Denies: vomiting, hematemesis, coffee ground emesis, heartburn, diarrhea, constipation, bloating, GI cramping, excessive flatus, fecal incontinence, change in bowel habits, change in stool character, hematochezia or melena : Denies: dysuria or hematuria Skin/Breast: Denies: rash or pruritus PFSH ED PFSH: Medical History COPD (chronic obstructive pulmonary disease) Depression with anxiety Diabetes mellitus with hyperglycemia, with long-term current use of insulin Environmental and seasonal allergies Essential hypertension, benign H/O brain tumor H/O reduction of closed fracture left wrist 10/23/2015 Hyperlipidemia Hypothyroidism Lung nodule Myasthenia Neuropathy Pacemaker 04/05/2019 Pneumonia Urine frequency Uses powered wheelchair Uses walker Vitamin B 12 deficiency Vitamin D deficiency Surgical History H/O brain surgery 4 x H/O esophagogastroduodenoscopy 2013 H/O thyroidectomy History of colonoscopy with polypectomy History of hysterectomy for cancer Hx of cholecystectomy S/P appy Family History Mother Anesthesia complication CAD (coronary artery disease) Cancer Dementia Stroke Brother CAD (coronary artery disease) Cancer Suicide Sister CAD (coronary artery disease) Suicide Grandmother Cancer Dementia Stroke Family/Other Cancer Dementia Stroke Brother Suicide Brother Suicide Denies family history of Diabetes Clotting disorder Chronic kidney disease (CKD) Bleeding disorder Lung disease Social History Smoking and tobacco status: former smoker Quit status (tobacco): has quit using tobacco Year quit tobacco: 2001 Second hand smoke exposure: No Smoking risk assessment/counseling performed?: No Alcohol intake: never Desire information about alcohol rehabilitation?: No Counseling given: No Desire information about substance/drug rehabilitation?: No Counseling given: No Adopted: No Caregiver/support person: Yes Lives independently: No Household members: children Housing: House Marital status: / Number of children: 2 service: No Current occupational status: retired Pets and animals: Yes Pets & animals: cat(s) History of recent travel: No Current gender identity: Female Physical Exam Const: COMMON NORMALS: no acute distress GENERAL APPEARANCE: cooperative and comfortable ORIENTATION/CONSCIOUSNESS: Yes awake, Yes oriented to person, Yes oriented to place and Yes oriented to time HENMT: COMMON NORMALS: normocephalic, atraumatic, hearing grossly normal bilaterally, external ears normal, EAC's normal, TM's normal bilaterally, Normal nasal mucous membranes and turbinates present, moist oral mucous membranes and oropharynx normal HEAD & SCALP: normocephalic and atraumatic NOSE: Normal nasal mucous membranes and turbinates present EXTERNAL EAR: Yes external ears normal EXTERNAL AUDITORY CANAL: EAC's normal TYMPANIC MEMBRANE: TM's normal bilaterally Eye: COMMON NORMALS: Equal, round and reactive pupils present, EOMs intact bilaterally, conjunctivae normal and no scleral icterus CONJUNCTIVA: Yes conjunctivae normal PUPIL: Yes Equal, round and reactive pupils present Neck/C-Spine: COMMON NORMALS: full ROM, no lymphadenopathy, supple and no JVD Resp: COMMON NORMALS: normal respiratory effort, No retractions, No use of accessory muscles and clear to auscultation bilaterally AUSCULTATION: clear to auscultation bilaterally Cardio: COMMON NORMALS: no JVD, regular rate, regular rhythm and No murmurs present (Cardio) RATE: regular rate RHYTHM: regular rhythm GI: COMMON NORMALS: Soft to palpation and No hepatosplenomegaly present AUSCULTATION: Yes normoactive bowel sounds PALPATION: Yes Soft to palpation, No Tenderness to palpation present (GI), No Guarding due to palpation present (GI) and Yes No hepatosplenomegaly present Extremity: COMMON NORMALS: normal to inspection, capillary refill normal, no clubbing, cyanosis or edema, no calf tenderness and no pedal edema Neuro: SENSORIUM/ORIENTATION: Yes oriented to person, Yes oriented to place and Yes oriented to time Skin: COMMON NORMALS: no rashes or lesions noted GENERAL SKIN EXAM: no rashes or lesions noted Course Vital Signs: Vital signs: Vital Signs Temperature 98.3 F 11/03/21 14:05 Pulse Rate 76 11/03/21 14:05 Respiratory Rate 17 11/03/21 15:05 Blood Pressure 112/68 11/03/21 15:39 Pulse Oximetry 96 11/03/21 15:05 MDM - Abdominal Pain Medical Decision Making White count elevated however patient has CLL and is actually trending down. Reviewing her medications I think part of the problem is her medicines recommend that she stop both the metformin and the Victoza as both of them cause severe abdominal discomfort and bloating etc. a lot of the symptoms she is complaining of. Her lymphoma could actually certainly contribute to it as well. I called and talked to Dr. Rendon who usually sees her he agrees with the holding of the medications and will follow have them follow-up in his office and also recommend that they follow-up with her primary care. Return for further problems. Medical Records I reviewed the patient's medical records. Lab Data I reviewed the patient's lab results. : 11/03/21 14:42 11/03/21 14:42 Labs/Radiology: Radiology Impressions Abdomen/Pelvis CT 11/03/21 14:32 IMPRESSION: 1. Negative for acute inflammatory process in the abdomen or pelvis. 2. Bibasilar atelectasis and right middle lobe atelectasis versus minimal infiltrate. 3. Cholecystectomy. 4. Common bile duct dilated to 16.5 mm, similar to prior exam along with mild dilation of the pancreatic duct in the pancreatic head measuring 4 mm, similar to prior exam, findings may be related to prior cholecystectomy, MRCP could further evaluate these as clinically indicated. 5. Scattered prominent subcentimeter short axis periaortic lymph nodes, similar to prior exam, nonspecific. 6. Right kidney cyst, negative for follow-up advised. Laboratory Results WBC 36.4 10^3/uL (4.0-10.0) H* 11/03/21 14:42 RBC 4.99 10^6/uL (4.1-5.3) 11/03/21 14:42 Hgb 14.5 g/dL (11.5-15.3) 11/03/21 14:42 Hct 44.5 % (37.0-47.0) 11/03/21 14:42 MCV 89.2 fl (81-99) 11/03/21 14:42 MCH 29.1 pg (28.0-34.0) 11/03/21 14:42 MCHC 32.6 g/dL (30.0-36.0) 11/03/21 14:42 RDW 13.0 % (12.1-15.1) 11/03/21 14:42 Plt Count 200 10^3/cmm (130-400) 11/03/21 14:42 MPV 9.4 fL (7.4-10.4) 11/03/21 14:42 Lymph % (Auto) Not Reportable 11/03/21 14:42 [place] % (Auto) Not Reportable 11/03/21 14:42 Lymph # (Auto) Not Reportable 11/03/21 14:42 [place] # (Auto) Not Reportable 11/03/21 14:42 Total Counted 100 (0-100) 11/03/21 14:42 Atypical Lymphs % 73.0 % (0-5) H 11/03/21 14:42 Absolute Neutrophils 4.7 10^3/cmm (1.4-6.5) 11/03/21 14:42 Segmented Neutrophils 13 % 11/03/21 14:42 Abs Segm Neuts (Man) 4.7 10/cmm (1.6-7.1) 11/03/21 14:42 Band Neutrophils 0.0 % 11/03/21 14:42 Abs Band Neuts (Man) 0.0 10^3/cmm (0.0-1.2) 11/03/21 14:42 Absolute Lymphocytes 30.9 10^3/cmm (1.2-3.4) H 11/03/21 14:42 Lymphocytes (Manual) 12 % 11/03/21 14:42 Monocytes (Manual) 1.0 % 11/03/21 14:42 Absolute Monocytes 0.4 10^3/cmm (0.1-0.6) 11/03/21 14:42 Eosinophils (Manual) 1 % 11/03/21 14:42 Absolute Eosinophils 0.3 10^3/cmm (0.0-0.7) 11/03/21 14:42 Basophils (Manual) 0.0 % 11/03/21 14:42 Absolute Basophils 0.0 10^3/cmm (0.0-0.2) 11/03/21 14:42 Platelet Estimate Normal (Normal) 11/03/21 14:42 Sodium 139 mmol/L (136-145) 11/03/21 14:42 Potassium 3.9 mmol/L (3.5-5.1) 11/03/21 14:42 Chloride 100 mmol/L (98-107) 11/03/21 14:42 Carbon Dioxide 26 mmol/L (22-29) 11/03/21 14:42 Anion Gap 16.9 (5-19) 11/03/21 14:42 BUN 12 mg/dL (8-23) 11/03/21 14:42 Creatinine 0.7 mg/dL (0.5-0.9) 11/03/21 14:42 GFR Calculation Not Reportable 11/03/21 14:42 Glucose 108 mg/dL (65-115) 11/03/21 14:42 Calculated Osmolality 288 mOsm/kg (285-295) 11/03/21 14:42 Lactate 0.9 mmol/L (0.5-2.2) 11/03/21 14:42 Calcium 8.7 mg/dL (8.5-10.5) 11/03/21 14:42 Total Bilirubin 0.5 mg/dL (0.15-1.2) 11/03/21 14:42 AST 25 U/L (0-32) 11/03/21 14:42 ALT 25 U/L (0-33) 11/03/21 14:42 Alkaline Phosphatase 92 IU/L (35-105) 11/03/21 14:42 Total Protein 6.6 g/dL (6.6-8.7) 11/03/21 14:42 Albumin 4.6 g/dL (3.5-5.2) 11/03/21 14:42 Globulin 2.0 g/dL (1.3-4.6) 11/03/21 14:42 Lipase 25 U/L (13-60) 11/03/21 14:42 Discharge Plan Discharge Patient Disposition: Home Clinical Impression: CLL (chronic lymphocytic leukemia), Chronic abdominal pain, Medication side effects Condition: Stable Prescriptions: New Reglan 10 mg tablet 10 mg PO Q6H PRN (Reason: nausea and vomiting) Qty: 30 0RF Discontinued metformin 500 mg tablet extended release 24 hr 500 mg PO BID Qty: 180 1RF Victoza 2-Wilson 0.6 mg/0.1 mL (18 mg/3 mL) pen injector 1.2 mg SUBCUT Q24H 90 Days Qty: 18 1RF No Action mupirocin 2 % ointment 1 applic topical TID Qty: 22 0RF (DME) lancets [TRUEplus Lancets] 33 gauge misc See Rx Instructions .Route Qty: 100 5RF Rx Instructions: use one 3 times day (DME) True Metrix Glucose Test Strip Strip See Rx Instructions .Route Qty: 100 5RF Rx Instructions: one strip 3 times day (DME) Power chair repair See Rx Instructions .Route .MEDSUPPLY Qty: 1 0RF Rx Instructions: Repair power chair and maintenance Invokana 100 mg tablet 100 mg PO QAM Qty: 90 1RF albuterol sulfate [Proventil HFA] 90 mcg/actuation HFA aerosol inhaler 2 puff INHALATION QID PRN (Reason: Shortness Of Breath) Qty: 6.7 1RF albuterol sulfate 2.5 mg /3 mL (0.083 %) solution for nebulization 2.5 mg inhalation Q4H PRN (Reason: shortness of breath or wheezing) Qty: 75 5RF furosemide 20 mg tablet 20 mg PO BID PRN (Reason: edema) Qty: 180 1RF levothyroxine 88 mcg tablet 88 mcg PO DAILY Qty: 90 1RF simvastatin 20 mg tablet 20 mg PO DAILY Qty: 90 1RF lactulose 10 gram packet 20 g PO BID 30 Days Qty: 15 2RF Airborne Gummy 250-11.66 mg Tablet,Chewable 1 tab PO DAILY 0RF Detrol 2 mg tablet 2 mg PO DAILY PRN (Reason: urinary frequency) 0RF Flonase Allergy Relief 50 mcg/actuation spray,suspension 2 spray INTRANASAL DAILY PRN (Reason: Shortness Of Breath) 0RF Levemir FlexTouch U-100 Insuln 100 unit/mL (3 mL) insulin pen 50 unit SUBCUT BEDTIME 0RF Discharge Orders: Discharge ED (Routine); Ordered 11/03/21 Ordered By: Israel Garza Referrals: Adam Anguiano, [facility] [Primary Care Provider] - Patient Instructions: Abdominal Pain (ED), Opioid Safety Activity Restrictions/Additional Instructions: Call Dr. Rendon's office tomorrow for further follow-up. Coding Level of Care Code ED Radiation / Chemistry Technician for Kina Jackson
[2021-11-03 15:30] LABS: White Blood Count 36.4 10^3/uL (4.0-10.0)
[2021-11-03 15:31] LABS: Slide Review Slide Review Perform
[2021-11-03 15:32] LABS: Absolute Eosinophils 0.3 10^3/cmm (0.0-0.7); Absolute Neutrophil 4.7 10^3/cmm (1.4-6.5); Absolute Segmented Neutrophil 4.7 10/cmm (1.6-7.1); Eosinophils 1 %; Lymphocytes 12 %; Lymphocytes Absolute 30.9 10^3/cmm (1.2-3.4); Monocytes Absolute 0.4 10^3/cmm (0.1-0.6); Platelet Estimate Normal (Normal); Segmented Neutrophils 13 %; Total Cells Counted 100 (0-100)
[2021-11-03 15:39] VITALS: BP 112/68
[2021-11-03] MEDS: iohexol 350 mg/mL 100 mL Btl IV (16:02)
== END 2021-11-03 17:12 | disposition home or self-care (01) ==
PROVIDERS: Emergency Medicine; Emergency Provider Family Medicine; PCP Nurse Practitioner
DX: R10.9 Unspecified abdominal pain (principal); T38.3X5A Adverse effect of insulin and oral hypoglycemic [antidiabetic] drugs, initial encounter; C91.10 Chronic lymphocytic leukemia of B-cell type not having achieved remission; Z87.891 Personal history of nicotine dependence; E11.9 Type 2 diabetes mellitus without complications; Z79.4 Long term (current) use of insulin
CPT/HCPCS: 74177; 80053; 83605; 83690; 85007; 85025; 93005; 96374; 96375; 99284; J2270; J2405; Q9967

== ENCOUNTER 2021-11-04 11:17 | Outpatient (CLI) | payer MEDICARE, OTHER, SELFPAY ==
--- NOTE | 2021-11-04 12:23 | ONC FU_ITS ---
Dr. Rendon Patient Follow-Up Note Patient: Felicitas Augustine Unit #: [id number]: 1940 Dicatated By: Satish Rendon M.D.Date of Visit:Nov 04, 2021 Onc Med Follow-up/Prog Note Chief Complaint: Chronic lymphocytic leukemia. History of Present Illness: This is a 81 year-old woman with chronic leukocytic leukemia. I had seen her initially on 05/02/2019 in regard to a persistent lymphocytosis. It had been noted during a hospitalization for syncope in March 2019. Her CBC at that time showed normal hemoglobin at 13.9 g with white blood cell count 14,000 and platelet count 233,000. The differential included 32% neutrophils, 59% lymphocytes, 6% monocytes, and 1% eosinophils. In reviewing her record in [facility], she was noted to have had at least a slight lymphocytosis dating as far back as 2013. Her evaluation in April 2019 included CBC showing hemoglobin 13.9 g with white blood cell count 13,600 and platelet count 218,000. The absolute lymphocyte count was 8200. Her comprehensive metabolic profile was unremarkable. LDH was in normal range at 201 U/L. Her whole blood flow cytometry showed a monotypic B-cell population which was positive for CD19, CD20, and CD5 and negative for CD10 and CD23. The phenotype was felt to be consistent with chronic lymphocytic leukemia/small lymphocytic lymphoma. By clinical evaluation, she appeared to have early stage disease (Pickens stage 0), and observation/expectant management was recommended. As of her follow-up visit in August 2020 she continued to have somewhat marginal performance status but there had been no significant progression of the chronic lymphocytic leukemia, and she continued expectant management. 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 She has hyperlipidemia and type II diabetes with peripheral neuropathy, and she has undergone placement of a permanent pacemaker for cardiac syncope. She had been diagnosed with myasthenia gravis approximately 6 years ago, but that diagnosis had more recently been disputed. Other medical illnesses include COPD, vitamin B12 deficiency, and vitamin D deficiency. She also had a suspected TIA/stroke. She has a history of smoking for 30 years, less than 1 pack of cigarettes daily. She quit smoking in 1999. INTERIM HISTORY: In August 2021 she had seen Adam Anguiano with multiple complaints, including pain in the upper abdomen. Her laboratory studies on 08/24/2021 included a comprehensive metabolic profile which showed normal renal function, normal bilirubin, and normal liver enzymes. Her lipase was mildly elevated at 73 U/L with amylase normal at 36 U/L. Her CBC on 08/27/2021 showed increase in the white blood cell count of 40,900 with absolute neutrophil count 4100 and absolute lymphocyte count 36,400. Hemoglobin was normal at 14.1 g with hematocrit 44.9% and the platelet count was normal 177,000. Noncontrast CT scans of the chest, abdomen, and pelvis on 10/06/2021 showed moderate chronic emphysematous changes with no acute pulmonary infiltrates and no suspicious pulmonary parenchymal opacities. There was no mediastinal or hilar lymphadenopathy. There was mild hepatomegaly and splenomegaly noted. A low-attenuation right upper pole renal lesion measuring 11 mm was noted to have increased and as it was not definitely cystic, further evaluation with ultrasound was recommended. A previously described complex right adnexal mass was not seen. There was evidence for fatty atrophy of the pancreas and there was evidence for transverse colon constipation. There was no retroperitoneal, pelvic, or inguinal lymphadenopathy. As of her follow-up visit on 10/19/2021 she was having multiple GI symptoms, including abdominal pain, bloating, and constipation. There was no significant progression of the chronic lymphocytic leukemia. She continued expectant management. She is seen now for an unplanned visit. She was back in the emergency room yesterday complaining of abdominal pain. Her laboratory studies were unrevealing. The white blood cell count was stable at 36,000 with normal hemoglobin at 14.5 g and with normal platelet count at 200,000. Her renal function was stable. Her bilirubin and liver enzymes were normal. The lipase was normal at 25 U/L. There were no acute findings on CT abdomen/pelvis. She says her whole stomach is like a boil. She has constant pain at a 4-5 and then at times her pain goes off the scale. It is aggravated by eating and also by any pressure on the abdomen and also by coughing. She says her stomach hurts after she eats only a few bites. She feels totally drained. She has very limited activity. ECOG score is 3. She has not had fever. She sometimes has a little sweating at night. She has chronic problem with phlegm building up in her throat, and she does have cough associated with it. Her breathing has been okay. She has not been having chest pain. She sometimes has nausea. She had been impacted, but she was able to get that cleared up with laxatives. She had a good bowel movement yesterday. She has no complaints. She says that her joints hurt so bad she can hardly stand up. The most significant pain is in her ankle, knee, and hip on the right side. She has numbness in the right leg and in her fingertips. Medications: Advair Diskus 1 Puff(s) (of 250-50 mcg/dose) Aerosol Powder, Breath Activated Inhalation b.i.d., Albuterol Sulfate 1 Puff(s) (of 108 (90 base) mcg/act) Aerosol Powder, Breath Activated Inhalation PRN, Detrol 1 Tablet (of 2 mg) Oral daily, Fiber 1 Powder Oral PRN, Flonase 2 Free Soil(s) (of 50 mcg/act) Suspension Nasal daily, Furosemide 1 Tablet (of 20 mg) Oral daily PRN, Levemir FlexTouch 40 Units (of 100 Units/mL) Subcutaneous daily, Levothyroxine Sodium 1 Tablet (of 100 mcg) Oral daily, Lidocaine 2 Patch(es) (of 5 %) Patch Topical daily, Lisinopril 1 Tablet (of 2.5 mg) Oral daily, metFORMIN HCl ER 1 Tablet (of 500 mg) Tablet SR 24 HR Oral b.i.d., MiraLax 1 Pack Oral PRN, Potassium Chloride ER (10 meq) Tablet, controlled release Oral Take as Directed, Proventil HFA 2 Puff(s) (of 108 (90 base) mcg/act) Aerosol, solution Inhalation four times a day, Simvastatin 1 Tablet (of 20 mg) Oral daily, Victoza 1 (18 mg/3mL) Subcutaneous daily Allergies: Pneumovax 23 and Sulfa Antibiotics. Vital Signs: Performed on Nov 04, 2021 11:36 Height - 62.50 in Weight - 139.2 lbs (LOW) BSA - 1.65 sq.m BMI - 25.05 Temperature - 97.8 F (LOW) Pulse - 76 /min Respiration - 18 /min BP - 102/62 mm(hg) O2 Sat - 93 % (LOW) Pain - 5 Fatigue - 9 Physical Examination: Constitutional - She appears somewhat weak generally, Eyes - Sclerae nonicteric. Conjunctivae clear, ENMT - No lesions noted in the oral cavity, Hematologic/Lymphatic - No cervical, clavicular, or axillary adenopathy, Respiratory - Lungs show diminished breath sounds at the left base, Cardiovascular - Heart rhythm is irregular. There is no murmur, gallop, or rub noted, Abdomen - Mildly distended. There is generalized abdominal tenderness, most significantly in the epigastric area. Liver and spleen are not enlarged. There is no abdominal mass or ascites noted. Bowel sounds are normal. There is no inguinal adenopathy, Extremities - Trace edema, Neurologic - No focal neurologic deficits noted. Problem List: 1. Chronic lymphocytic leukemia, Pickens stage 0. 2. She has had multiple chronic complaints, the most significant of which have been weakness/fatigue and double vision. She was previously diagnosed with myasthenia gravis. 3. She had previously undergone multiple surgeries and radiation for a brainstem meningioma and she now has suspected recurrence by MRI. She is being followed by a neurologist. 4. Hyperlipidemia. 5. Type II diabetes with peripheral neuropathy. 6. She has had suspected TIA/stroke. 7. COPD. 8. She had recently started replacement therapy for B12 deficiency. 9. She also has vitamin D deficiency. 10. She underwent hysterectomy/bilateral salpingo-oophorectomy for cervical cancer. 11. She underwent total thyroidectomy for multiple papillary microcarcinomas in 2007. She had subsequent radioactive iodine ablation. 12. She underwent placement of permanent pacemaker for cardiac syncope on 04/05/2019. Problems Addressed with this Encounter and Plan: 1. Chronic lymphocytic leukemia diagnosed by whole blood flow cytometry in April 2019. She had early stage disease (Pickens stage 0), and observation/expectant management was recommended. During follow-up there has been some gradual increase in her lymphocyte count, but there has been no indication for treatment. She continues on expectant management for the CLL. 2. She has ongoing problems with abdominal pain. A specific cause has not been determined. Her lipase was previously mildly elevated, but yesterday it was normal, and there were no acute findings on her CT abdomen/pelvis. She is scheduled to see Dr. Hathaway tomorrow. In the meantime, I will have her start omeprazole 40 mg daily. She will start taking senna S2 tablets daily on a regular basis and will increase to 2 tablets twice daily as needed. She has also been taken off metformin, Invokana, and Victoza. She is monitoring her blood sugars and she will increase her Levemir dosage as needed. Signed By: Satish Rendon M.D. <<Signature on File>>
== END 2021-11-04 11:18 | disposition home or self-care (01) ==
LOC: ONCMED 11:19
PROVIDERS: PCP Nurse Practitioner; Visit Provider Internal Medicine Medical Oncology
DX: C91.10 Chronic lymphocytic leukemia of B-cell type not having achieved remission (principal); G70.00 Myasthenia gravis without (acute) exacerbation; E78.5 Hyperlipidemia, unspecified; E11.42 Type 2 diabetes mellitus with diabetic polyneuropathy; J44.9 Chronic obstructive pulmonary disease, unspecified; E53.8 Deficiency of other specified B group vitamins; E55.9 Vitamin D deficiency, unspecified; R10.9 Unspecified abdominal pain; Z79.899 Other long term (current) drug therapy
CPT/HCPCS: 99214

== ENCOUNTER → 2021-11-05 11:38 | Outpatient (BNVA) | payer MEDICARE, OTHER, SELFPAY | PROVIDERS: PCP Nurse Practitioner; Referring Provider Internal Medicine Medical Oncology; Visit Provider Surgery | DX: R10.9 Unspecified abdominal pain (principal); G89.29 Other chronic pain; K59.00 Constipation, unspecified | CPT/HCPCS: 99204 ==

== ENCOUNTER 2021-11-17 06:50 | Day surgery (SDC) | payer MEDICARE, OTHER, SELFPAY ==
[2021-11-12 11:34] VITALS: BMI 23.6
[2021-11-17 07:13] VITALS: BP 151/77; PULSE 75; RESP 18; TEMP 36.1; O2SAT 94
[2021-11-17] MEDS: sodium chloride 0.9% 1,000 ML 30 ML IV (07:26)
--- NOTE | 2021-11-17 08:04 | ANES.PREANE2 ---
Pre-Anesthetic Assessment Height/Weight: Height 1.6 m Weight 60.328 kg Temp Pulse Resp BP Pulse Ox 97.0 F L 75 18 151/77 94 11/17/21 07:13 11/17/21 07:13 11/17/21 07:13 11/17/21 07:13 11/17/21 07:13 Preop Diagnosis: upper gi symptoms Operation Date: 11/17/21 08:30 Proposed Procedures p EGD 15126/93914/r10.9/g89.29(Not Applicable) - Jb Hathaway MD s Colonoscopy(Not Applicable) - Jb Hathaway MD Familial anesthetic complications: None Was Beta Clyde taken within 24 hours: N/A Was Clonidine taken within 24 hours: N/A Last intake: Intake Last Liquid Date 11/17/21 Last Liquid Time 01:00 Last Solid Date 11/15/21 Last Solid Time 18:00 Social No alcohol and No tobacco Exam alert, oriented x 3 and regular rate & rhythm Airway Submandibular: within normal limits Cervical ROM: within normal limits Mallampati: Class II Dentition: false Pulmonary Chronic Obstructive Pulmonary Disease CV/HEM Hypertension Pacemaker, leukemia Metabolic Diabetes Mellitus, Hyperlipidemia and Thyroid Disease Neuropsych Anxiety, Cerebrovascular Accident, Depression and Neuropathy MG Anesthetic Plan ASA status: 3 Anesthesia: MAC Medications/Allergies Home Medications Medication Instructions Recorded Confirmed Last Taken Type nosyxmmn-ofirrtqm-ame C 250 1 tab PO DAILY 02/26/20 11/12/21 11/16/21 History mg-herbal no.124 11.66 mg chewable tablet (Airborne Gummy) lancets 33 gauge (TRUEplus Lancets) #100 ea 12/23/20 11/05/21 11/16/21 Rx blood sugar diagnostic (True #100 ea 04/04/21 11/05/21 11/16/21 Rx Metrix Glucose Test Strip) Power chair repair #1 ea 04/09/21 11/05/21 11/16/21 Rx albuterol sulfate 2.5 mg (3 mL) INHALATION Q4H PRN 10/21/21 11/12/21 11/16/21 Rx #75 ml albuterol sulfate 90 mcg/actuation 2 puff INHALATION QID PRN #6.7 g 10/21/21 11/12/21 11/16/21 Rx aerosol inhaler (Proventil HFA) canagliflozin 100 mg tablet 100 mg PO QAM #90 tab 10/21/21 11/12/21 11/16/21 Rx (Invokana) furosemide 20 mg tablet 20 mg PO BID PRN #180 tab 10/21/21 11/12/21 11/16/21 Rx levothyroxine 88 mcg tablet 88 mcg PO DAILY #90 tab 10/21/21 11/12/21 11/16/21 Rx simvastatin 20 mg tablet 20 mg PO DAILY #90 tab 10/21/21 11/12/21 11/16/21 Rx fluticasone propionate 50 2 spray INTRANASAL DAILY PRN 11/03/21 11/12/21 11/16/21 History mcg/actuation nasal spray,suspension (Flonase Allergy Relief) insulin detemir U-100 100 unit/mL 50 unit SUBCUT BEDTIME 11/03/21 11/12/21 11/16/21 History (3 mL) subcutaneous pen (Levemir FlexTouch U-100 Insulin) metoclopramide HCl 10 mg tablet 10 mg PO Q6H PRN #30 tab 11/03/21 11/12/21 11/16/21 Rx (Reglan) tolterodine 2 mg tablet (Detrol) 2 mg PO DAILY PRN 11/03/21 11/12/21 11/16/21 History lactulose 10 gram oral packet 20 g PO BID 30 Days #15 ea 11/12/21 11/16/21 Rx Allergies Allergy/AdvReac Type Severity Reaction Status Date / Time Sulfa (Sulfonamide Allergy RASH Verified 11/12/21 11:35 Antibiotics) PNEUMONIA VACCINE Allergy ALGY-Rash Uncoded 11/05/21 10:57 Current Medications Generic Name Dose Route Start Last Admin Trade Name Freq PRN Reason Stop Dose Admin Sodium Chloride 1,000 mls @ 30 mls/hr 11/17/21 07:00 11/17/21 07:26 Sodium Chloride 0.9% IV 11/18/21 06:59 30 mls/hr .Q24H INEZ Administration PFSH Anesthesia Medical History COPD (chronic obstructive pulmonary disease) Depression with anxiety Diabetes mellitus with hyperglycemia, with long-term current use of insulin Environmental and seasonal allergies Essential hypertension, benign H/O brain tumor H/O reduction of closed fracture left wrist 10/23/2015 Hyperlipidemia Hypothyroidism Lung nodule Myasthenia Neuropathy Pacemaker 04/05/2019 Pneumonia Urine frequency Uses powered wheelchair Uses walker Vitamin B 12 deficiency Vitamin D deficiency Surgical History H/O brain surgery 4 x H/O esophagogastroduodenoscopy 2013 H/O thyroidectomy History of colonoscopy with polypectomy History of hysterectomy for cancer Hx of cholecystectomy S/P appy Family History Mother Anesthesia complication CAD (coronary artery disease) Cancer Dementia Stroke Brother CAD (coronary artery disease) Cancer Suicide Sister CAD (coronary artery disease) Suicide Grandmother Cancer Dementia Stroke Family/Other Cancer Dementia Stroke Brother Suicide Brother Suicide Denies family history of Diabetes Clotting disorder Chronic kidney disease (CKD) Bleeding disorder Lung disease Social History Smoking and tobacco status: former smoker Quit status (tobacco): has quit using tobacco Year quit tobacco: 2001 Second hand smoke exposure: No Smoking risk assessment/counseling performed?: No Alcohol intake: never Desire information about alcohol rehabilitation?: No Counseling given: No Desire information about substance/drug rehabilitation?: No Counseling given: No Adopted: No Caregiver/support person: Yes Lives independently: No Household members: children Housing: House Marital status: / Number of children: 2 service: No Current occupational status: retired Pets and animals: Yes Pets & animals: cat(s) History of recent travel: No Current gender identity: Female Data Anesthesia Cardiac Studies: No Data to Display
--- NOTE | 2021-11-17 08:31 | P.HP_ITS ---
Same Day Surgery H&P Indication for Procedure/HPI DATE OF PROCEDURE: November 17, 2021 CHIEF COMPLAINT/INDICATIONFOR SURGICAL PROCEDURE: EGD/colon PREOP DIAGNOSIS: upper gi symptoms PLANNED PROCEDURE: Operation Date: 11/17/21 08:30 Proposed Procedures p EGD 84607/92892/r10.9/g89.29(Not Applicable) - Jb Hathaway MD s Colonoscopy(Not Applicable) - Jb Hathaway MD Medications/Allergies* Home Medications Medication Instructions Recorded Confirmed Type zwekcojf-koywkwwl-thr C 250 1 tab PO DAILY 02/26/20 11/12/21 History mg-herbal no.124 11.66 mg chewable tablet (Airborne Gummy) fluticasone propionate 50 2 spray INTRANASAL DAILY PRN 11/03/21 11/12/21 History mcg/actuation nasal spray,suspension (Flonase Allergy Relief) insulin detemir U-100 100 unit/mL 50 unit SUBCUT BEDTIME 11/03/21 11/12/21 History (3 mL) subcutaneous pen (Levemir FlexTouch U-100 Insulin) tolterodine 2 mg tablet (Detrol) 2 mg PO DAILY PRN 11/03/21 11/12/21 History Allergies/Adverse Reactions Allergy/AdvReac Type Severity Reaction Status Date / Time Sulfa (Sulfonamide Allergy RASH Verified 11/12/21 11:35 Antibiotics) PNEUMONIA VACCINE Allergy ALGY-Rash Uncoded 11/05/21 10:57 Current Medications: Generic Name Dose Route Start Last Admin Trade Name Freq PRN Reason Stop Dose Admin Sodium Chloride 1,000 mls @ 30 mls/hr 11/17/21 07:00 11/17/21 07:26 Sodium Chloride 0.9% IV 11/18/21 06:59 30 mls/hr .Q24H INEZ Administration Pertinent History/Comorbid Conditions* Medical History (Updated 11/11/21 @ 00:01 by ) COPD (chronic obstructive pulmonary disease) Depression with anxiety Diabetes mellitus with hyperglycemia, with long-term current use of insulin Environmental and seasonal allergies Essential hypertension, benign H/O brain tumor H/O reduction of closed fracture left wrist 10/23/2015 Hyperlipidemia Hypothyroidism Lung nodule Myasthenia Neuropathy Pacemaker 04/05/2019 Pneumonia Urine frequency Uses powered wheelchair Uses walker Vitamin B 12 deficiency Vitamin D deficiency Surgical History (Updated 11/05/21 @ 11:52 by Jb Hathaway MD) H/O brain surgery 4 x H/O esophagogastroduodenoscopy 2013 H/O thyroidectomy History of colonoscopy with polypectomy History of hysterectomy for cancer Hx of cholecystectomy S/P appy Family History (Updated 10/11/21 @ 11:10 by Kelly Ward RN) CAD (coronary artery disease) Mother Brother Sister Dementia Mother Grandmother Family/Other Suicide Brother Sister Brother Brother Anesthesia complication Mother Cancer Mother Brother Grandmother Family/Other Stroke Mother Grandmother Family/Other Denies family history of Diabetes Clotting disorder Chronic kidney disease (CKD) Bleeding disorder Lung disease Social History Smoking and tobacco status: former smoker Quit status (tobacco): has quit using tobacco Year quit tobacco: 2001 Second hand smoke exposure: No Smoking risk assessment/counseling performed?: No Alcohol intake: never Desire information about alcohol rehabilitation?: No Counseling given: No Desire information about substance/drug rehabilitation?: No Counseling given: No Adopted: No Caregiver/support person: Yes Lives independently: No Household members: children Housing: House Marital status: / Number of children: 2 service: No Current occupational status: retired Pets and animals: Yes Pets & animals: cat(s) History of recent travel: No Current gender identity: Female Pertinent Exam Findings alert, oriented x 3 and regular rate & rhythm Recommendations Surgery/Procedure today Coding Level of Care Code Acute Technology Specialist for Kina Jackson
[2021-11-17 09:23] VITALS: BP 142/72; PULSE 79; RESP 18; TEMP 36.7; O2SAT 93
[2021-11-17 09:35] VITALS: BP 175/98; PULSE 72; RESP 18; TEMP 36.5; O2SAT 95
--- NOTE | 2021-11-17 17:14 | ANE.PACU2 ---
Inpatient post-anesthesia follow up: Airway intact: Yes Vital signs: Temperature 97.7 F Pulse Rate 72 Respiratory Rate 18 Blood Pressure 175/98 Pulse Oximetry 95 Oxygen Delivery Me thod Room Air Oxygen Flow Rate Fraction of Inspir ed Oxygen Hydration adequate: Yes Nausea and vomiting: No Pain level: 1 Mental status: Baseline
== END 2021-11-17 09:58 | disposition home or self-care (01) ==
PROVIDERS: PCP Nurse Practitioner; Visit Provider Surgery
PROC: 0DJ08ZZ Inspection of Upper Intestinal Tract, Via Natural or Artificial Opening Endoscopic (ICD-10-PCS; CPT 43235; principal; 2021-11-17 08:30)
PROC: 0DJD8ZZ Inspection of Lower Intestinal Tract, Via Natural or Artificial Opening Endoscopic (ICD-10-PCS; CPT 45378; 2021-11-17 08:30)
DX: R10.9 Unspecified abdominal pain (principal); G89.29 Other chronic pain; K29.70 Gastritis, unspecified, without bleeding; D12.0 Benign neoplasm of cecum; D12.4 Benign neoplasm of descending colon; D12.5 Benign neoplasm of sigmoid colon; D12.3 Benign neoplasm of transverse colon; K57.30 Diverticulosis of large intestine without perforation or abscess without bleeding; J44.9 Chronic obstructive pulmonary disease, unspecified; I10 Essential (primary) hypertension; Z95.0 Presence of cardiac pacemaker; E11.9 Type 2 diabetes mellitus without complications; E78.5 Hyperlipidemia, unspecified; F41.9 Anxiety disorder, unspecified; E11.40 Type 2 diabetes mellitus with diabetic neuropathy, unspecified; Z86.73 Personal history of transient ischemic attack (TIA), and cerebral infarction without residual deficits
CPT/HCPCS: 43239; 45380; 45385; 88305; J2704; J7030

== ENCOUNTER → 2021-11-30 15:13 | Outpatient (BNVA) | payer MEDICARE, OTHER, SELFPAY | PROVIDERS: PCP Nurse Practitioner; Visit Provider Surgery | DX: Z09 Encounter for follow-up examination after completed treatment for conditions other than malignant neoplasm (principal) | CPT/HCPCS: 99212 ==

== ENCOUNTER → 2021-12-16 17:23 | Outpatient (BNVA) | payer MEDICARE, OTHER, SELFPAY | PROVIDERS: PCP Nurse Practitioner; Visit Provider Internal Medicine Cardiovascular Disease | DX: Z45.010 Encounter for checking and testing of cardiac pacemaker pulse generator [battery] (principal) | CPT/HCPCS: 93294 ==

== ENCOUNTER → 2021-12-24 08:28 | Outpatient (BNVA) | payer MEDICARE, OTHER, SELFPAY | PROVIDERS: PCP Nurse Practitioner; Visit Provider Urology | DX: N28.1 Cyst of kidney, acquired (principal) | CPT/HCPCS: 81003; 99203 ==

== ENCOUNTER → 2022-01-12 11:43 | Outpatient (BNVA) | payer MEDICARE, OTHER, SELFPAY | PROVIDERS: PCP Nurse Practitioner; Visit Provider Nurse Practitioner | DX: E11.65 Type 2 diabetes mellitus with hyperglycemia (principal); J44.9 Chronic obstructive pulmonary disease, unspecified; I10 Essential (primary) hypertension; E03.9 Hypothyroidism, unspecified; E78.2 Mixed hyperlipidemia; Z79.4 Long term (current) use of insulin | CPT/HCPCS: 80053; 80061; 83036 ==

== ENCOUNTER 2022-02-08 14:25 | Inpatient (IN) | payer MEDICARE, OTHER, SELFPAY ==
[2022-02-08] VITALS (9 sets, daily range): BP systolic 101–111; BP diastolic 53–60; PULSE 65–84; RESP 16–25; TEMP 36.8; O2SAT 96–99; BMI 28.8
--- NOTE | 2022-02-08 14:48 | XRR_ITS ---
PROCEDURE INFORMATION: Exam: XR Chest Exam date and time: 02/08/2022 2:58 PM Age: 81 years old Clinical indication: Pain; Angina pectoris; Additional info: Chest pain TECHNIQUE: Imaging protocol: Radiologic exam of the chest. Views: 1 view. COMPARISON: CR XR chest 2V* [id number] 10/19/2021 9:21 AM FINDINGS: Tubes, catheters and devices: 2 lead pacer device noted in the left chest wall. Lungs: Calcified granuloma noted in the right upper lung. Mild diffuse coarsening of the lung parenchyma. No consolidation. Pleural spaces: No pleural effusion. No pneumothorax. Heart/Mediastinum: No cardiomegaly. Bones/joints: Unremarkable. XR/XR chest 1V portable [id number] IMPRESSION: No acute findings.
--- NOTE | 2022-02-08 14:49 | ECG_ITS ---
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 Measurements Intervals Gay Rate: 84 P: 70 RI: 167 QRS: -77 QRSD: 96 T: 59 QT: 362 QTc: 430 Interpretive Statements SINUS RHYTHM WITH OCCASIONAL VENTRICULAR PREMATURE COMPLEXES LEFT AXIS DEVIATION [QRS AXIS < -30] PATTERN CONSISTENT WITH PULMONARY DISEASE INCOMPLETE RIGHT BUNDLE BRANCH BLOCK [90+ ms QRS DURATION, TERMINAL R IN V1/V2, 40+ ms S IN I/aVL/V4/V5/V6] MARKED ST ELEVATION, CONSIDER SEPTAL INJURY [MARKED ST ELEVATION W/O NORMALLY INFLECTED T WAVE IN V1/V2] ACUTE MA Compared to ECG 11/03/2021 15:00:36 Ventricular premature complex(es) now present Left-axis deviation now present ST (T wave) deviation now present Left anterior fascicular block no longer present Electronically Signed On 02-08-2022 21:14:08 CDT by Aimee Ramos M.D. [id number]
--- NOTE | 2022-02-08 14:50 | CT_ITS ---
WS: [id number] CT HEAD TECHNIQUE: Noncontrast CT of the head obtained from the skullbase to the vertex. CLINICAL INFORMATION: fall COMPARISON: CT February 26, 2020 DLP: 1148.[address] scans at [facility] use at least one of these dose optimization techniques: automated e xposure control; mA and/or kV adjustment per patient size (includes targeted exams where dose is matc hed to clinical indication); or iterative reconstruction. FINDINGS: No evidence of intracranial hemorrhage or mass effect. Ventricular system and basal cisterns are [facility]. Moderate small vessel changes with moderate parenchymal volume loss. Tiny chronic lacunar infarct RIGHT thalamus. Benign calcifications in the LEFT cerebellum unchanged 2016. Hypertrophic calcificat ions along the LEFT occipital condyle unchanged since 2019. Tiny lucencies in the calvarium unchanged since 2019. Paranasal sinuses and mastoid air cells are well aerated. .Normal visualized soft tissues. CT/CT head wo con* [id number] IMPRESSION: 1. No evidence of intracranial hemorrhage or mass effect. 2. Moderate small vessel changes with moderate parenchymal volume loss. 3. No acute intracranial findings.
--- NOTE | 2022-02-08 14:50 | XRR_ITS ---
PROCEDURE INFORMATION: Exam: XR Lumbosacral Spine Exam date and time: 02/08/2022 3:26 PM Age: 81 years old Clinical indication: Low back pain TECHNIQUE: Imaging protocol: Radiologic exam of the lumbosacral spine. Views: 2 or 3 views. COMPARISON: CR XR lumbar spine 2-3V* [id number] 11/27/2019 2:40 PM FINDINGS: Bones/joints: No acute fracture. Normal alignment. Facet arthropathy noted at the lower lumbar spine. Soft tissues: Unremarkable. XR/XR lumbar spine 2-3V* [id number] IMPRESSION: No acute findings.
--- NOTE | 2022-02-08 14:50 | XRR_ITS ---
PROCEDURE INFORMATION: Exam: XR Thoracic Spine Exam date and time: 02/08/2022 3:26 PM Age: 81 years old Clinical indication: Pain in thoracic spine; Additional info: Back pain TECHNIQUE: Imaging protocol: Radiologic exam of the thoracic spine. Views: 2 views. COMPARISON: CR XR chest 1V portable [id number] 02/08/2022 2:58 PM FINDINGS: Bones/joints: No acute fracture. Normal alignment. Soft tissues: Unremarkable. XR/XR thoracic spine 2V [id number] IMPRESSION: No acute findings.
--- NOTE | 2022-02-08 14:52 | ED_ITS ---
HPI - General Adult General: Chief complaint: Chest Pain Stated complaint: CHEST PAIN, FALL Time Seen by Provider: 02/08/22 14:31 History of Present Illness: Patient is a 81-year-old female with history of COPD, type 2 diabetes, CCL with chronic leukocytosis, hypertension, hypothyroid ism who presents the emergency room for complaints of generalized weakness, chest pressure and fall. Patient tells me that around 3:00 this morning, patient was try to get out of her wheelchair when she felt weakness all over her body and fell to the ground. Patient report hitting her head multiple times. Patient was asking for help for 2 hours before her hospital responded. Patient complains of back pain right-sided rib pain and left-sided rib pain. In addition, for the last 2 days, patient has had an intermittent chest pressure. Patient denies any sharp chest pain but reports fatigue lightheadedness and chest with associated with the chest pressure. Patient has any fever/chills, cough, diarrhea melena hematochezia. Patient is on any blood thinners. Patient took her insulin earlier today. By the time patient's family called her primary care provider, she was told to come to the emergency room given generalized weakness and chest pressure in the setting of fall. Patient denies any LOC from the fall from the wheelchair 3 AM this morning. Patient does not use any other recent fall. Patient has had decreased p.o. intake in the last 2 days. Patient reports that she has been having dysuria symptoms for 1 week. Patient denies any hematuria, melena/hematochezia or diarrhea. Onset: chest pressure x 2 days, fall at 3am Duration:ongoing Location:home Severity:moderate Associated symptoms: Deny chest pain, dyspnea, nausea, rash, palpitations or vomiting Review of Systems Const: Denies: fever(s) or chills Eyes: Denies: change in vision ENMT: Denies: mouth pain Card: Denies: chest pain or palpitations Resp: Denies: dyspnea or non-productive cough GI: Denies: abdominal pain, nausea, vomiting or diarrhea : Denies: dysuria Musc: Denies: extremity pain Skin/Breast: Denies: rash or new lesions Neuro: Reports: other (+light-headedness); Denies: weakness in extremities Psych: Reports: other (Normal mood) Rio/Lymph: Denies: easy bruising PFS ED PFS: Medical History COPD (chronic obstructive pulmonary disease) Depression with anxiety Diabetes mellitus with hyperglycemia, with long-term current use of insulin Environmental and seasonal allergies Essential hypertension, benign H/O brain tumor H/O reduction of closed fracture left wrist 10/23/2015 Hyperlipidemia Hypothyroidism Lung nodule Myasthenia Neuropathy Pacemaker 04/05/2019 Pneumonia Urine frequency Uses powered wheelchair Uses walker Vitamin B 12 deficiency Vitamin D deficiency Surgical History H/O brain surgery 4 x H/O esophagogastroduodenoscopy (11/17/21) 2013 H/O thyroidectomy History of colonoscopy with polypectomy (11/17/21) History of hysterectomy for cancer Hx of cholecystectomy S/P appy Family History Mother , AT 92 Anesthesia complication CAD (coronary artery disease) Cancer Dementia Stroke Brother CAD (coronary artery disease) Cancer Suicide Sister CAD (coronary artery disease) Suicide Grandmother Cancer Dementia Stroke Family/Other Cancer Dementia Stroke Brother Suicide Brother Suicide Father , IN HIS 60'S Alcoholic Liver disease Denies family history of Diabetes Clotting disorder Chronic kidney disease (CKD) Bleeding disorder Lung disease Social History Smoking and tobacco status: former smoker Second hand smoke exposure: No Smoking risk assessment/counseling performed?: No Alcohol intake: unknown Desire information about alcohol rehabilitation?: No Counseling given: No Desire information about substance/drug rehabilitation?: No Counseling given: No Adopted: No Caregiver/support person: Yes Lives independently: No Household members: family Housing: House Marital status: / Number of children: 2 service: No Current occupational status: retired Current occupational exposures/hazards: No History of recent travel: No Physical Exam Const: COMMON NORMALS: alert HENMT: COMMON NORMALS: atraumatic HEAD & SCALP: atraumatic MOUTH: moist mucous membranes not abnormal Eye: COMMON NORMALS: EOMs intact bilaterally and conjunctivae normal CONJUNCTIVA: Yes conjunctivae normal Neck/C-Spine: COMMON NORMALS: full ROM and supple Resp: COMMON NORMALS: normal respiratory effort and clear to auscultation bilaterally AUSCULTATION: clear to auscultation bilaterally Cardio: COMMON NORMALS: regular rate RATE: regular rate GI: COMMON NORMALS: Soft to palpation and non-tender PALPATION: Yes Soft to palpation Extremity: COMMON NORMALS: full ROM Neuro: SENSORIUM/ORIENTATION: Yes alert MOTOR EXAM: No Abnormal motor strength present and Other motor observations present (no focal motor deficits) Psych: COMMON NORMALS: speech normal SPEECH: Yes normal speech MOOD & AFFECT: Yes euthymic mood Course Vital Signs: Vital signs: Vital Signs Temperature 98.2 F 02/08/22 14:33 Pulse Rate 70 02/08/22 16:14 Respiratory Rate 22 H 02/08/22 16:14 Blood Pressure 101/53 02/08/22 16:03 Pulse Oximetry 97 02/08/22 16:14 Oxygen Delivery Me thod 02/08/22 16:14 Oxygen Flow Rate 6 02/08/22 16:14 MDM - General Adult Medical Decision Making Patient is a 81-year-old female with history of COPD, type 2 diabetes, CCL with chronic leukocytosis, hypertension, hypothyroidism who presents the emergency room for complaints of generalized weakness, chest pressure and fall. Patient CT images were largely unremarkable. No signs of trauma or injury. Patient at baseline has chronic leukocytosis. Patient today's white count 26.9. In the absence of fever patient is not currently getting chemotherapy, I do not suspect that this is acute infection at this point. We will trend white count over the next few days. Patient initial troponin of 20. EKG is nonischemic. Troponin of 20. Patient did not have any episode of chest pain in the ER. Patient has never had a cardiac work-up and will have the patient observed for further evaluation. Given the white count 26.9 although it is likely chronic we will give antibiotics today and send blood culture. Patient received vancomycin and cefepime. We will send blood for LDH and haptoglobin per request of Dr. Schmitz. Patient is also noted to have a CPK of 1900. We will trend CPK. Patient received IVF and aspirin in the ER. Disposition: observation Lab Data : 02/08/22 15:07 02/08/22 15:07 Radiology Impressions Chest X-Ray 02/08/22 14:48 IMPRESSION: No acute findings. Head CT 02/08/22 14:50 IMPRESSION: 1. No evidence of intracranial hemorrhage or mass effect. 2. Moderate small vessel changes with moderate parenchymal volume loss. 3. No acute intracranial findings. Lumbar Spine X-Ray 02/08/22 14:50 IMPRESSION: No acute findings. Thoracic Spine X-Ray 02/08/22 14:50 IMPRESSION: No acute findings. Laboratory Results WBC 26.9 10^3/uL (4.0-10.0) H 02/08/22 15:07 RBC 4.38 10^6/uL (4.1-5.3) 02/08/22 15:07 Hgb 12.8 g/dL (11.5-15.3) 02/08/22 15:07 Hct 38.9 % (37.0-47.0) 02/08/22 15:07 MCV 88.8 fl (81-99) 02/08/22 15:07 MCH 29.2 pg (28.0-34.0) 02/08/22 15:07 MCHC 32.9 g/dL (30.0-36.0) 02/08/22 15:07 RDW 13.5 % (12.1-15.1) 02/08/22 15:07 Plt Count 181 10^3/cmm (130-400) 02/08/22 15:07 MPV 9.3 fL (7.4-10.4) 02/08/22 15:07 Lymph % (Auto) Not Reportable 02/08/22 15:07 Stone % (Auto) Not Reportable 02/08/22 15:07 Lymph # (Auto) Not Reportable 02/08/22 15:07 Stone # (Auto) Not Reportable 02/08/22 15:07 Total Counted 100 (0-100) 02/08/22 15:07 Atypical Lymphs % 13.0 % (0-5) H 02/08/22 15:07 Absolute Neutrophils 11.8 10^3/cmm (1.4-6.5) H 02/08/22 15:07 Segmented Neutrophils 31 % 02/08/22 15:07 Abs Segm Neuts (Man) 8.3 10/cmm (1.6-7.1) H 02/08/22 15:07 Band Neutrophils 13.0 % 02/08/22 15:07 Abs Band Neuts (Man) 3.5 10^3/cmm (0.0-1.2) H 02/08/22 15:07 Absolute Lymphocytes 12.9 10^3/cmm (1.2-3.4) H 02/08/22 15:07 Lymphocytes (Manual) 35 % 02/08/22 15:07 Monocytes (Manual) 8.0 % 02/08/22 15:07 Absolute Monocytes 2.2 10^3/cmm (0.1-0.6) H 02/08/22 15:07 Eosinophils (Manual) 0 % 02/08/22 15:07 Absolute Eosinophils 0.0 10^3/cmm (0.0-0.7) 02/08/22 15:07 Basophils (Manual) Not Reportable 02/08/22 15:07 Toxic Granulation 1+ H 02/08/22 15:07 Dohle Bodies 1+ H 02/08/22 15:07 Platelet Estimate Normal (Normal) 02/08/22 15:07 Specimen Type Arterial 02/08/22 15:55 Sample Site Radial, left 02/08/22 15:55 ABG pH 7.42 (7.35-7.45) 02/08/22 15:55 ABG pCO2 32.9 mmHg (35-45) L 02/08/22 15:55 ABG pO2 344.0 mmHg (80.0-100.0) H 02/08/22 15:55 ABG HCO3 21.5 mmol/L (22-26) L 02/08/22 15:55 ABG Base Excess -2.2 mmol/L (-2.0-2.0) L 02/08/22 15:55 Ruben Test Pos 02/08/22 15:55 Hematocrit 40.3 % (37-47) 02/08/22 15:55 O2 Delivery Device Nrb 02/08/22 15:55 O2 Liters/Min 10.0 % 02/08/22 15:55 FiO2 100.0 % 02/08/22 15:55 Sales And Marketing Coordinator ID [email or web address] 02/08/22 15:55 Sodium 141 mmol/L (136-145) 02/08/22 15:07 Potassium 3.4 mmol/L (3.5-5.1) L 02/08/22 15:07 Chloride 104 mmol/L (98-107) 02/08/22 15:07 Carbon Dioxide 21 mmol/L (22-29) L 02/08/22 15:07 Anion Gap 19.4 (5-19) H 02/08/22 15:07 BUN 16 mg/dL (8-23) 02/08/22 15:07 Creatinine 0.6 mg/dL (0.5-0.9) 02/08/22 15:07 GFR Calculation Not Reportable 02/08/22 15:07 Glucose 164 mg/dL (65-115) H 02/08/22 15:07 Calculated Osmolality 297 mOsm/kg (285-295) H 02/08/22 15:07 Calcium 8.2 mg/dL (8.5-10.5) L 02/08/22 15:07 Total Bilirubin 0.7 mg/dL (0.15-1.2) 02/08/22 15:07 AST 37 U/L (0-32) H 02/08/22 15:07 ALT 20 U/L (0-33) 02/08/22 15:07 Alkaline Phosphatase 89 IU/L (35-105) 02/08/22 15:07 Creatine Kinase 1929 U/L (26-192) H* 02/08/22 15:07 Troponin T Baseline 20 ng/L (0-10) H 02/08/22 15:07 Total Protein 5.6 g/dL (6.6-8.7) L 02/08/22 15:07 Albumin 3.7 g/dL (3.5-5.2) 02/08/22 15:07 Globulin 1.9 g/dL (1.3-4.6) 02/08/22 15:07 Lipase 27 U/L (13-60) 02/08/22 15:07 Serum Ketones Negative (Negative) 02/08/22 15:07 Imaging Data Other Imaging: Radiologist's impression: [address] [place] [address] XRay Report Signed Patient: Felicitas Augustine Unit #: [id number] : 1940 Age/Sex: 81 / F ADM Date: 02/08/22 Loc: ER Room/Bed: Attending Dr: Ordering Provider/Ordering MD: Lacho Murdock MD Date of Service: 02/08/22 Procedure(s): XR thoracic spine 2V 38370 Accession Number(s): [id number] Report Number: [id number] PROCEDURE INFORMATION: Exam: XR Thoracic Spine Exam date and time: 02/08/2022 3:26 PM Age: 81 years old Clinical indication: Pain in thoracic spine; Additional info: Back pain TECHNIQUE: Imaging protocol: Radiologic exam of the thoracic spine. Views: 2 views. COMPARISON: CR XR chest 1V portable [id number] 02/08/2022 2:58 PM FINDINGS: Bones/joints: No acute fracture. Normal alignment. Soft tissues: Unremarkable. XR/XR thoracic spine 2V [id number] IMPRESSION: No acute findings. ? Dictated By: Saad Seay DO Signed By: Saad Seay DO Signed Date/Time: 02/08/22 1547 DD/ [address] [address] XRay Report Signed Patient: Felicitas Augustine Unit #: [id number] : 1940 Age/Sex: 81 / F ADM Date: 02/08/22 Loc: ER Room/Bed: Attending Dr: Ordering Provider/Ordering MD: Lacho Murdock MD Date of Service: 02/08/22 Procedure(s): XR lumbar spine 2-3V* [id number] Accession Number(s): [id number] Report Number: [id number] PROCEDURE INFORMATION: Exam: XR Lumbosacral Spine Exam date and time: 02/08/2022 3:26 PM Age: 81 years old Clinical indication: Low back pain TECHNIQUE: Imaging protocol: Radiologic exam of the lumbosacral spine. Views: 2 or 3 views. COMPARISON: CR XR lumbar spine 2-3V* [id number] 11/27/2019 2:40 PM FINDINGS: Bones/joints: No acute fracture. Normal alignment. Facet arthropathy noted at the lower lumbar spine. Soft tissues: Unremarkable. XR/XR lumbar spine 2-3V* [id number] IMPRESSION: No acute findings. ? Dictated By: Saad Seay DO Signed By: Saad Seay DO Signed Date/Time: 02/08/221547 DD/ [address] [address] [address] Scan Report Signed Patient: Felicitas Augustine Unit #: [id number] : 1940 Age/Sex: 81 / F ADM Date: 02/08/22 Loc: ER Room/Bed: Attending Dr: Ordering Provider/Ordering MD: Lacho Murdock MD Date of Service: 02/08/22 Procedure(s): CT head wo con* [id number] Accession Number(s): [id number] Report Number: [id number] WS: [id number] CT HEAD TECHNIQUE: Noncontrast CT of the head obtained from the skullbase to the vertex. CLINICAL INFORMATION: fall COMPARISON: CT February 26, 2020 DLP: 1148.[address] scans at [facility] use at least one of these dose optimization techniques: automated exposure control; mA and/or kV adjustment per patient size (includes targeted exams where dose is matched to clinical indication); or iter ative reconstruction. FINDINGS: No evidence of intracranial hemorrhage or mass effect. Ventricular system and basal cisterns are patent. Moderate small vessel changes with moderate parenchymal volume loss. Tiny chronic lacunar infarct RIGHT thalamus. Benign calcifications in the LEFT cerebellum unchanged 2016. Hypertrophic calcifications along the LEFT occipital condyle unchanged since 2019. Tiny lucencies in the calvarium unchanged since 2019. Paranasal sinuses and mastoid air cells are well aerated. .Normal visualized soft tissues. CT/CT head wo con* [id number] IMPRESSION: ? 1.? No evidence of intracranial hemorrhage or mass effect. 2.? Moderate small vessel changes with moderate parenchymal volume loss. 3.? No acute intracranial findings. ? Dictated By: Mal Sahni MD Signed By: Mal Sahni MD Signed Date/Time: 02/08/221547 DD/ 1533 Discharge Plan Discharge Patient Disposition: Admitted As Inpatient Clinical Impression: Light headedness, Chest pressure, Leukocytosis, Elevated CPK Condition: Stable Coding Level of Care Code ED Project Hire for Chg Fwd Exam Comprehensive
[2022-02-08 15:22] LABS: Hematocrit 38.9 % (37.0-47.0); Hemoglobin 12.8 g/dL (11.5-15.3); Mean Corpuscular HGB Conc 32.9 g/dL (30.0-36.0); Mean Corpuscular Hemoglobin 29.2 pg (28.0-34.0); Mean Corpuscular Volume 88.8 fl (81-99); Mean Platelet Volume 9.3 fL (7.4-10.4); Platelet Count 181 10^3/cmm (130-400); Red Blood Count 4.38 10^6/uL (4.1-5.3); Red Cell Distribution Width 13.5 % (12.1-15.1); White Blood Count 26.9 10^3/uL (4.0-10.0)
[2022-02-08 15:47] LABS: Troponin(5th) Baseline 20 ng/L (0-10)
[2022-02-08 16:00] LABS: Slide Review Slide Review Perform; Total Cells Counted 100 (0-100)
[2022-02-08 16:01] LABS: Absolute Segmented Neutrophil 8.3 10/cmm (1.6-7.1); Band Neutrophils Absolute 3.5 10^3/cmm (0.0-1.2); Eosinophils 0 %; Lymphocytes 35 %; Monocytes Absolute 2.2 10^3/cmm (0.1-0.6); Segmented Neutrophils 31 %
[2022-02-08 16:02] LABS: Absolute Neutrophil 11.8 10^3/cmm (1.4-6.5); Lymphocytes Absolute 12.9 10^3/cmm (1.2-3.4); Platelet Estimate Normal (Normal); Toxic Granulation 1+
[2022-02-08 16:03] LABS: Dohle Bodies 1+
[2022-02-08 16:07] LABS: Alanine Aminotransferase 20 U/L (0-33); Albumin Level 3.7 g/dL (3.5-5.2); Alkaline Phosphatase 89 IU/L (35-105); Anion Gap 19.4 (5-19); Aspartate Amino Transferase 37 U/L (0-32); Blood Urea Nitrogen 16 mg/dL (8-23); Calcium 8.2 mg/dL (8.5-10.5); Carbon Dioxide 21 mmol/L (22-29); Chloride 104 mmol/L (98-107); Globulin 1.9 g/dL (1.3-4.6); Glucose 164 mg/dL (65-115); Lipase 27 U/L (13-60); Osmolality Calculated 297 mOsm/kg (285-295); Potassium 3.4 mmol/L (3.5-5.1); Sodium 141 mmol/L (136-145); Total Bilirubin 0.7 mg/dL (0.15-1.2); Total Protein 5.6 g/dL (6.6-8.7)
[2022-02-08 16:07] LABS: ABG PCO2 32.9 mmHg (35-45); ABG PH Result 7.42 (7.35-7.45); Arterial Blood Gas Hematocrit 40.3 % (37-47); Base Excess ABG -2.2 mmol/L (-2.0-2.0); Blood Gas Allen Test Pos; Blood Gas Sample Type Arterial; HCO3 ABG 21.5 mmol/L (22-26)
[2022-02-08 16:08] LABS: Blood Gas Operator Identificat MONRO; Blood Gas Sample Site Radial, left; Oxygen Device NRB
[2022-02-08 16:11] LABS: Creatine Phosphokinase 1929 U/L (26-192); Ketone (Acetest) Serum Negative (Negative)
[2022-02-08] MEDS: ipratropium-albuterol 3 mL Neb INHALATION ×3 (16:14→16:21)
[2022-02-08] MEDS: vancomycin 1,000 MG in sodium chloride 0.9% 250 ML 250 MG IV (16:22)
[2022-02-08] MEDS: cefepime 1,000 MG in sodium chloride 0.9% (plus) 50 ML 100 MG IV (16:24)
[2022-02-08] MEDS: aspirin 325 mg Tablet PO (16:24)
--- NOTE | 2022-02-08 16:49 | ECG_ITS ---
[facility] Test Date: 2022-02-08 Pat Name: Felicitas Augustine Department: Room: Gender: Female Fourth Mate: : 1940 Requested By: Lacho Murdock Order Number: [id number] Karma MD: Aimee Ramos M.D. Measurements Intervals [place] Rate: 74 P: 81 TX: 167 QRS: -44 QRSD: 104 T: 72 QT: 421 QTc: 468 Interpretive Statements SINUS RHYTHM LEFT AXIS DEVIATION [QRS AXIS < -30] PATTERN CONSISTENT WITH PULMONARY DISEASE INCOMPLETE RIGHT BUNDLE BRANCH BLOCK [90+ ms QRS DURATION, TERMINAL R IN V1/V2, 40+ ms S IN I/aVL/V4/V5/V6] Compared to ECG 02/08/2022 14:38:15 Ventricular premature complex(es) no longer present ST (T wave) deviation no longer present Electronically Signed On 02-09-2022 6:47:29 CDT by Aimee Ramos M.D. [email or web address]
[2022-02-08 16:51] LABS: Bilirubin Urine Neg (Negative); Blood Urine 3+ (Negative); Glucose Urine UA 4+ (Normal); Ketones Urine 2+ (Negative); Nitrate Urine Positive (Negative); Protein Urine 1+ (Negative); Specific Gravity, Urine 1.015 (1.005-1.030); Urine Appearance SL Hazy (CLEAR); Urine Color Yellow (Yellow); pH Urine 5 (5-7)
[2022-02-08 16:52] LABS: Add Urine Microscopic? YES; Leukocyte Esterase Urine Trace (Negative); Urobilinogen Urine Norm (Negative)
[2022-02-08 16:53] LABS: Add Urine Culture? Yes; Bacteria Urine 4+ /hpf; Mucus Urine TRACE /hpf; RBC Urine 0-4 /hpf (0-2); Squamous Epithelial Cell Urine 0-4 /hpf (0-5); WBC Urine 55-80 /hpf (0-5)
[2022-02-08 17:24] LABS: D Dimer 1.05 ug/mIFEU (0-0.59)
[2022-02-08 18:09] LABS: Troponin 5 2HR 18.45 ng/L (0-10)
[2022-02-08 18:13] LABS: Glucose Point of Care 162 mg/dL (70-110)
[2022-02-08 18:14] LABS: Troponin 5 2HR Delta -1.55 ABS# (0-10)
--- NOTE | 2022-02-08 18:31 | CTR_ITS ---
PROCEDURE INFORMATION: Exam: CT Abdomen And Pelvis Without Contrast Exam date and time: 02/08/2022 10:05 PM Age: 81 years old Clinical indication: Pain; Other: Bilateral flank; Additional info: UTI, sepsis, HX renal stones TECHNIQUE: Imaging protocol: Computed tomography of the abdomen and pelvis without contrast. Radiation optimization: All CT scans at this facility use at least one of these dose optimization techniques: automated exposure control; mA and/or kV adjustment per patient size (includes targeted exams where dose is matched to clinical indication); or iterative reconstruction. COMPARISON: CT abdomen pelvis w con* [id number] 11/03/2021 4:01 PM RADIATION DOSE METRICS: Total DLP (mGy-cm): 569.51 FINDINGS: Lungs: Right middle lobe subsegmental airspace opacity incompletely visualized, somewhat similar to prior exams. Emphysematous changes. Left lower lobe chronic pleuroparenchymal scarring. Liver: Normal. No mass. Gallbladder and bile ducts: Cholecystectomy. Pancreas: Normal. No ductal dilation. Spleen: Normal. No splenomegaly. Adrenal glands: Normal. No mass. Kidneys and ureters: Bilateral nonobstructing renal calyceal stones. Perinephric edema bilaterally suggestive of chronic renal insufficiency. Right kidney upper pole cyst, negative for follow-up advised. Stomach and bowel: Unremarkable. No obstruction. No mucosal thickening. Appendix: No evidence of appendicitis. Intraperitoneal space: Unremarkable. No free air. No significant fluid collection. Vasculature: Unremarkable. No abdominal aortic aneurysm. Lymph nodes: Small amount of edema in the central mesentery with some prominent subcentimeter lymph nodes suggestive of a chronic inflammatory process such as sclerosing mesenteritis. Urinary bladder: Unremarkable as visualized. Reproductive: Unremarkable as visualized. Bones/joints: Unremarkable. No acute fracture. Soft tissues: Subcutaneous emphysema over the left abdominal wall in the subcutaneous fat likely reflecting sequelae of an injection. CT/CT kidney stone [id number] IMPRESSION: 1. Negative for acute inflammatory process in the abdomen or pelvis. 2. Right middle lobe subsegmental airspace opacity incompletely visualized, somewhat similar to prior exams. 3. Emphysematous changes. 4. Left lower lobe chronic pleuroparenchymal scarring. 5. Cholecystectomy. 6. Bilateral nonobstructing renal calyceal stones. 7. Perinephric edema bilaterally suggestive of chronic renal insufficiency. 8. Right kidney upper pole cyst, negative for follow-up advised. 9. Small amount of edema in the central mesentery with some prominent subcentimeter lymph nodes suggestive of a chronic inflammatory process such as sclerosing mesenteritis. 10. Subcutaneous emphysema over the left abdominal wall in the subcutaneous fat likely reflecting sequelae of an injection.
--- NOTE | 2022-02-08 18:31 | CTR_ITS ---
PROCEDURE INFORMATION: Exam: CTA Chest With Contrast Exam date and time: 02/08/2022 10:10 PM Age: 81 years old Clinical indication: Other: High d dimer, hypoxia, ; additional info: Hypoxia, dry cough, elev dimer TECHNIQUE: Imaging protocol: Computed tomographic angiography of the chest with contrast. 3D rendering (Not supervised by radiologist): MIP and/or 3D reconstructed images were created by the technologist. Radiation optimization: All CT scans at this facility use at least one of these dose optimization techniques: automated exposure control; mA and/or kV adjustment per patient size (includes targeted exams where dose is matched to clinical indication); or iterative reconstruction. Contrast material: OMNIPAQUE 350; Contrast volume: 95 ml; Contrast route: INTRAVENOUS (IV); COMPARISON: [place] [id number] 10/06/2021 11:12 AM RADIATION DOSE METRICS: Total DLP (mGy-cm): 332.92 FINDINGS: Pulmonary arteries: Normal. No pulmonary emboli. Aorta: Unremarkable. No aortic aneurysm. No aortic dissection. Lungs: Right middle lobe and left lower lobe chronic pleuroparenchymal scarring versus atelectasis. Left lower lobe demonstrates minimal chronic herniation of the lung parenchyma into the left posterolateral aspect of the thorax. Left upper lobe 13 mm focal nodular airspace opacification, increasingly prominent compared to prior exam at which time it measured approximately 9.8 mm. Pleural spaces: Unremarkable. No pneumothorax. No pleural effusion. Heart: Coronary artery atherosclerotic calcifications. Pacemaker. Aberrant right subclavian artery, normal variant Lymph nodes: Unremarkable. No enlarged lymph nodes. Bones/joints: Unremarkable. No acute fracture. Soft tissues: Unremarkable. CT/CT angio chest PE protcl [id number] IMPRESSION: 1. Negative for pulmonary embolus. 2. Coronary artery atherosclerotic calcifications. 3. Right middle lobe and left lower lobe chronic pleuroparenchymal scarring versus atelectasis. 4. Left lower lobe demonstrates minimal chronic herniation of the lung parenchyma into the left posterolateral aspect of the thorax. 5. Aberrant right subclavian artery, normal variant. 6. Left upper lobe 13 mm focal nodular airspace opacification, increasingly prominent compared to prior exam at which time it measured approximately 9.8 mm. Highly suspicious nodule(s). Consider non-emergent PET/CT, or tissue sampling.(Reference: Marty) REFERENCES: MacMahon H, et al. Guidelines for Management of Incidental Pulmonary Nodules Detected on CT Images: From the Fleischner Society 2017. Radiology. 2017;284(1):228-243.
--- NOTE | 2022-02-08 19:09 | P.HP_ITS ---
Providers/Chief Complaint Admitting Physician: Bandar Jane Primary Care Provider: Adam Anguiano, RHETT-C Chief Complaint: CHEST PAIN, FALL History of Present Illness Pleasant 81-year-old lady presented for evaluation to ER due to generalized weakness, malaise in the last 48 hours, was also found collapsed on the floor early this morning standing on floor for close to 2 hours. In ER she is noted to Requiring 6 L of oxygen by nasal cannula. She reports dry cough. She is having abdominal soreness. She is afebrile, but with leukocytosis 26.9, with chronic leukocytosis, but now with neutrophilia, bandemia, as well as tachypnea of 25 breaths/min. ABG 7.42/30.9/244, initially on 100% nonrebreather. She is found to have rhabdomyolysis, CK 1929. Troponin mildly elevated 20-18.45. She denies any chest pain but states has been feeling some chest pressure. She states that she has felt like she has been getting a urinary tract infection with urinary symptoms, however, states that she was going to be following up with a kidney doctor who was going to do an ultrasound and so she felt that she could hold off on doing anything until then. She is noted to have WBC in urine, 55-80, as well as 0-4 RBC. 0-4 squamous cells. 4+ bacteria. Review of Systems Const: Reports: malaise; Denies: fever(s), chills or body aches Eyes: Denies: change in vision, eye discomfort or eye redness ENMT: Denies: throat pain, oral sores or ear or mastoid pain Card: Denies: chest pain, edema, pre-syncope or dyspnea on exertion Resp: Reports: dyspnea and non-productive cough; Denies: productive cough, change in phlegm color or hemoptysis GI: Reports: abdominal pain; Denies: nausea, vomiting, diarrhea, constipation, hematochezia or melena : Reports: urinary frequency; Denies: flank pain or hematuria Musc: Denies: back pain, joint swelling or joint redness Skin/Breast: Denies: rash or new lesions Neuro: Denies: headache(s), numbness in extremities, weakness in extremities, dizziness, confusion or seizure-like activity Endo: Denies: polyuria or polydipsia Rio/Lymph: Denies: easy bleeding or tender lymph nodes All/Imm: Denies: urticaria or tongue swelling Medications/Allergies Home Medications Medication Instructions Recorded Confirmed Last Taken Type jjabjonp-[id number]-tbp C 250 1 tab PO DAILY 02/26/20 02/08/22 11/16/21 History mg-herbal no.124 11.66 mg chewable tablet (Airborne Gummy) lancets 33 gauge (TRUEplus Lancets) #100 ea 12/23/20 02/08/22 11/16/21 Rx blood sugar diagnostic (True #100 ea 04/04/21 02/08/22 11/16/21 Rx Metrix Glucose Test Strip) Power chair repair #1 ea 04/09/21 02/08/22 11/16/21 Rx fluticasone propionate 50 2 spray intranasal DAILY PRN 11/03/21 02/08/22 11/16/21 History mcg/actuation nasal Allergy Symptoms spray,suspension (Flonase Allergy Relief) tolterodine 2 mg tablet (Detrol) 2 mg PO DAILY PRN urinary frequency 11/03/21 02/08/22 11/16/21 History lactulose 10 gram oral packet 20 g PO BID 30 days #15 ea 11/12/21 02/08/22 02/08/22 Rx albuterol sulfate 2.5 mg (3 mL) inhalation Q4H PRN 01/12/22 02/08/22 02/08/22 Rx shortness of breath or wheezing #75 mL albuterol sulfate 90 mcg/actuation 2 puff inhalation QID PRN 01/12/22 02/08/22 02/08/22 Rx aerosol inhaler (Proventil HFA) Shortness Of Breath #6.7 grams budesonide 0.5 mg/2 mL suspension 0.5 mg (2 mL) inhalation BID #180 01/12/22 02/08/22 02/08/22 Rx for nebulization (Pulmicort) mL flash glucose scanning reader #1 ea 01/12/22 02/08/22 Unknown Rx (FreeStyle William 2 [place]) flash glucose sensor (FreeStyle #2 ea 01/12/22 02/08/22 Unknown Rx William 2 Sensor) furosemide 20 mg tablet 20 mg PO BID PRN edema #180 tabs 01/12/22 02/08/22 02/08/22 Rx insulin aspart U-100 100 unit/mL See Rx Instructions SUBCUT TID #15 01/12/22 02/08/22 02/08/22 Rx (3 mL) subcutaneous pen (Novolog mL Flexpen U-100 Insulin aspart) insulin glargine U-300 conc 300 50 unit (0.1667 mL) SUBCUT DAILY 01/12/22 02/08/22 02/08/22 Rx unit/mL (3 mL) subcutaneous pen #6 mL (Toujeo Max U-300 SoloStar) levothyroxine 88 mcg tablet 88 mcg PO DAILY #90 tabs 01/12/22 02/08/22 02/08/22 Rx simvastatin 20 mg tablet 20 mg PO BEDTIME 02/08/22 02/08/22 02/07/22 History Allergies Allergy/AdvReac Type Severity Reaction Status Date / Time Sulfa (Sulfonamide Allergy RASH Verified 02/08/22 15:51 Antibiotics) PNEUMONIA VACCINE Allergy ALGY-Rash Uncoded 01/15/22 16:46 PFSH Acute PFSH: Medical History COPD (chronic obstructive pulmonary disease) Depression with anxiety Diabetes mellitus with hyperglycemia, with long-term current use of insulin Environmental and seasonal allergies Essential hypertension, benign H/O brain tumor H/O reduction of closed fracture left wrist 10/23/2015 Hyperlipidemia Hypothyroidism Lung nodule Myasthenia Neuropathy Pacemaker 04/05/2019 Pneumonia Urine frequency Uses powered wheelchair Uses walker Vitamin B 12 deficiency Vitamin D deficiency Surgical History H/O brain surgery 4 x H/O esophagogastroduodenoscopy (11/17/21) 2013 H/O thyroidectomy History of colonoscopy with polypectomy (11/17/21) History of hysterectomy for cancer Hx of cholecystectomy S/P appy Family History Mother , AT 92 Anesthesia complication CAD (coronary artery disease) Cancer Dementia Stroke Brother CAD (coronary artery disease) Cancer Suicide Sister CAD (coronary artery disease) Suicide Grandmother Cancer Dementia Stroke Family/Other Cancer Dementia Stroke Brother Suicide Brother Suicide Father , IN HIS 60'S Alcoholic Liver disease Denies family history of Diabetes Clotting disorder Chronic kidney disease (CKD) Bleeding disorder Lung disease Social History Smoking and tobacco status: former smoker Second hand smoke exposure: No Smoking risk assessment/counseling performed?: No Alcohol intake: unknown Desire information about alcohol rehabilitation?: No Counseling given: No Desire information about substance/drug rehabilitation?: No Counseling given: No Adopted: No Caregiver/support person: Yes Lives independently: No Household members: family Housing: House Marital status: / Number of children: 2 service: No Current occupational status: retired Current occupational exposures/hazards: No History of recent travel: No Vitals/I&O/Wt Last Vital Signs Temp 98.2 F 02/08/22 14:33 Pulse 73 02/08/22 17:20 Resp 22 H 02/08/22 17:20 BP 111/59 02/08/22 17:20 Pulse Ox 99 02/08/22 17:20 O2 Del Method 02/08/22 18:38 O2 Flow Rate 6 02/08/22 17:20 Weight last 48 hrs Weight 73.936 kg Weight 73.936 kg Physical Exam Const: COMMON NORMALS: patient oriented x3 and alert GENERAL APPEARANCE: cooperative ORIENTATION/CONSCIOUSNESS: Yes awake HENMT: COMMON NORMALS: oropharynx normal Neck/C-Spine: COMMON NORMALS: no JVD Resp: COMMON NORMALS: normal respiratory effort and clear to auscultation bilaterally AUSCULTATION: clear to auscultation bilaterally Cardio: COMMON NORMALS: no JVD, regular rhythm, S1 normal heart sound present, S2 normal heart sound present and No murmurs present (Cardio) RHYTHM: regular rhythm HEART SOUNDS: S1 normal heart sound present and S2 normal heart sound present GI: COMMON NORMALS: Normal to inspection, nondistended, normoactive bowel sounds present and Soft to palpation PALPATION: Yes Soft to palpation and Yes Tenderness to palpation present (GI) (mild RLQ) Extremity: COMMON NORMALS: no joint enlargement and no pedal edema Neuro: COMMON NORMALS: patient oriented x3 and moves all extremities SENSORIUM/ORIENTATION: Yes alert Skin: COMMON NORMALS: no rashes or lesions noted GENERAL SKIN EXAM: no rashes or lesions noted Data : 02/08/22 15:07 02/08/22 15:07 Micro: Microbiology 02/08/22 16:32 Blood Culture - Preliminary Blood SPECIMEN COLLECTED 02/08/22 16:28 Blood Culture - Preliminary Blood SPECIMEN COLLECTED A&P Assessment and plan (1) Sepsis: Leukocytosis with bandemia. Tachypnea 25 breaths/min. Check lactic acid. Monitor blood pressure. So far sepsis without endorgan damage. Suspected urinary source with urinary tract infection. Continue cefepime, empiric vancomycin. Assess renal CT. She is also hypoxic. Will assess CT angiogram pulmonary protocol. Discussed with including risks. With dry cough, new oxygen requirement, assess also COVID-19. Status: Acute (2) UTI (urinary tract infection): As above. Status: Acute (3) Hypoxia: As above. Status: Acute (4) Collapse: Generalized weakness with collapse, resultant rhabdomyolysis. Suspect secondary to sepsis, possibly also hypoxia. Additional assessment management as above. Status: Acute (5) Light headedness: As above. Status: Acute (6) Chest pressure: Complete troponin and EKG series. Monitor on telemetry. Additional assessment with CT angiogram PE protocol as above. Status: Acute (7) CLL (chronic lymphocytic leukemia): Chronic cytosis, but now with neutrophilia, bandemia. Status: Chronic (8) Pacemaker: Interrogate Status: Chronic (9) Rhabdomyolysis: CK 1929. Follow-up. Status: Acute Plan COPD DM2 HTN HLD Hypothyroidism Myasthenia: stress dose hydrocortisone Neuropathy Other chronic medical problems Attestations Medical Necessity Statement*: Admission of over 2 midnights is anticipated for assessment of management of sepsis, UTI, hypoxia with new oxygen requirement. Coding Level of Care Code Acute Practice Office Associate for [facility] Fwd Diagnoses Sepsis A41.9 UTI (urinary tract infection) N39.0 Hypoxia R09.02 Collapse R55 Light headedness R42 Chest pressure R07.89 CLL (chronic lymphocytic leukemia) C91.10 Pacemaker Z95.0 Rhabdomyolysis M62.82
[2022-02-08] MEDS: sodium chloride 0.9% 500 ML IV (19:57)
[2022-02-08] MEDS: enoxaparin 40 mg/0.4 mL Syringe SUBCUT (19:57)
[2022-02-08] MEDS: pantoprazole 40 mg SDV IVP (19:57)
[2022-02-08] MEDS: hydrocortisone 100 mg/2 mL SDV IVP (19:57)
[2022-02-08 20:08] LABS: Lactate Dehydrogenase 206 U/L (135-214); Phosphorus 2.8 mg/dL (2.5-4.5)
[2022-02-08 20:09] LABS: Lactic Sepsis W/Reflex 0.9 mmol/L (0.5-2.2)
[2022-02-08 20:15] LABS: LAB Peripheral Smear Sent for Review
[2022-02-08] MEDS: acetaminophen 325 mg Tablet 650 MG PO (20:15)
--- NOTE | 2022-02-08 20:49 | ECG_ITS ---
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 Measurements Intervals Butler Rate: 64 P: 119 MN: 174 QRS: -2 QRSD: 94 T: 43 QT: 447 QTc: 462 Interpretive Statements ELECTRONIC ATRIAL PACEMAKER LOW QRS VOLTAGE IN PRECORDIAL LEADS [QRS DEFLECTION < 1.0 mV IN CHEST LEADS] POSSIBLE RIGHT VENTRICULAR CONDUCTION DELAY [RSR (QR) IN V1/V2] Compared to ECG 02/08/2022 16:40:38 Low QRS voltage now present Sinus rhythm no longer present Left-axis deviation no longer present Incomplete right bundle-branch block no longer present Electronically Signed On 02-09-2022 19:50:51 CDT by Jen Castro M.D. [id number]
[2022-02-08] MEDS: iohexol 350 mg/mL 100 mL Btl IV (22:01)
[2022-02-08 22:15] LABS: Troponin 5 6HR 15.79 ng/L (0-10)
[2022-02-08 22:18] LABS: Troponin 5 6HR Delta -4.21 ng/L (0-12)
[2022-02-09] VITALS (13 sets, daily range): BP systolic 90–116; BP diastolic 52–64; PULSE 60–82; RESP 12–20; TEMP 36.4–36.7; O2SAT 94–99
[2022-02-09] MEDS: vancomycin 1,000 MG in sodium chloride 0.9% 250 ML 250 MG IV ×2 (04:02→21:44)
--- NOTE | 2022-02-09 05:04 | PC.NURSE ---
Pt lying in bed resting with eyes closed. Resp even and non-labored no distress or sob noted. Pt had no c/o pain or discomfort at the present time. No needs voiced. Call light in reach.
[2022-02-09] MEDS: cefepime 1,000 MG in sodium chloride 0.9% (plus) 50 ML 100 MG IV ×2 (05:22→18:16)
[2022-02-09 06:13] LABS: Basophils # 0.1 10^3/uL (0.0-0.1); Basophils % 0.2 %; Eosinophils # 0.1 10^3/uL (0.0-0.8); Eosinophils % 0.2 %; Hematocrit 35.1 % (37.0-47.0); Hemoglobin 11.1 g/dL (11.5-15.3); Lymphocytes % 61.2 %; Mean Corpuscular HGB Conc 31.6 g/dL (30.0-36.0); Mean Corpuscular Hemoglobin 28.9 pg (28.0-34.0); Mean Corpuscular Volume 91.4 fl (81-99); Mean Platelet Volume 9.6 fL (7.4-10.4); Monocytes # 4.5 10^3/uL (0.2-0.9); Monocytes % 13.1 %; Neutrophils # 8.53 10^3/uL (1.8-7.7); Neutrophils % 24.9 %; Nucleated Red Blood Cells % 0 %; Platelet Count 157 10^3/cmm (130-400); Red Blood Count 3.84 10^6/uL (4.1-5.3); Red Cell Distribution Width 13.8 % (12.1-15.1)
[2022-02-09 06:55] LABS: Alanine Aminotransferase 22 U/L (0-33); Albumin Level 3.3 g/dL (3.5-5.2); Alkaline Phosphatase 80 IU/L (35-105); Anion Gap 14.9 (5-19); Aspartate Amino Transferase 39 U/L (0-32); Blood Urea Nitrogen 17 mg/dL (8-23); Calcium 8.3 mg/dL (8.5-10.5); Carbon Dioxide 22 mmol/L (22-29); Chloride 108 mmol/L (98-107); Globulin 2.1 g/dL (1.3-4.6); Glucose 166 mg/dL (65-115); Osmolality Calculated 297 mOsm/kg (285-295); Potassium 3.9 mmol/L (3.5-5.1); Sodium 141 mmol/L (136-145); Total Bilirubin 0.4 mg/dL (0.15-1.2); Total Protein 5.4 g/dL (6.6-8.7)
[2022-02-09 07:11] LABS: Slide Review Slide Review Perform
[2022-02-09 07:18] LABS: Creatine Phosphokinase 1556 U/L (26-192); White Blood Count 34.4 10^3/uL (4.0-10.0)
[2022-02-09] MEDS: hydrocortisone 100 mg/2 mL SDV 50 MG IVP ×2 (08:14→18:16)
[2022-02-09] MEDS: ipratropium-albuterol 3 mL Neb INHALATION (16:17)
[2022-02-09] MEDS: pantoprazole 40 mg SDV IVP (18:16)
[2022-02-09] MEDS: enoxaparin 40 mg/0.4 mL Syringe SUBCUT (18:17)
--- NOTE | 2022-02-09 21:42 | P.PN_ITS ---
Subjective Subjective: Today she is doing probably about the same. Still gets easily dyspneic. Not much cough today. Reports her urinary symptoms have abated, no longer having burning with urination, urgency. Vitals/I&O/Wt Last Vital Signs Temp 97.9 F 02/09/22 16:00 Pulse 78 02/09/22 16:20 Resp 20 H 02/09/22 16:20 BP 116/58 02/09/22 16:00 Pulse Ox 97 02/09/22 16:20 O2 Del Method 02/09/22 16:20 O2 Flow Rate 1.5 02/09/22 16:20 02/09/22 02/09/22 02/09/22 06:59 14:59 22:59 Intake Total 300 / 1100 290 / 290 Output Total 500 / 1000 Balance -200 / 100 290 / 290 Weight last 48 hrs Weight 64.365 kg Weight 73.936 kg Weight 73.936 kg Physical Exam Narrative: accompanying her at bedside. Const: COMMON NORMALS: patient oriented x3 and alert GENERAL APPEARANCE: cooperative ORIENTATION/CONSCIOUSNESS: Yes awake HENMT: COMMON NORMALS: oropharynx normal Neck/C-Spine: COMMON NORMALS: no JVD Resp: COMMON NORMALS: normal respiratory effort and clear to auscultation bilaterally AUSCULTATION: clear to auscultation bilaterally Cardio: COMMON NORMALS: no JVD, regular rhythm, S1 normal heart sound present, S2 normal heart sound present and No murmurs present (Cardio) RHYTHM: regular rhythm HEART SOUNDS: S1 normal heart sound present and S2 normal heart sound present GI: COMMON NORMALS: Normal to inspection, nondistended, normoactive bowel sounds present and Soft to palpation PALPATION: Yes Soft to palpation and Yes Tenderness to palpation present (GI) (mild RLQ) Extremity: COMMON NORMALS: no joint enlargement and no pedal edema Neuro: COMMON NORMALS: patient oriented x3 and moves all extremities SENSORIUM/ORIENTATION: Yes alert Skin: COMMON NORMALS: no rashes or lesions noted GENERAL SKIN EXAM: no r ashes or lesions noted Data : 02/09/22 06:03 02/09/22 06:03 Micro: Microbiology 02/08/22 16:32 Blood Culture - Preliminary Blood NEGATIVE TO DATE 02/08/22 16:28 Blood Culture - Preliminary Blood NEGATIVE TO DATE 02/08/22 16:12 Urine Culture - Preliminary Urine,Clean Catch Gram Negative Rods A&P Assessment and plan (1) Sepsis: Worsened leukocytosis today up to 34.4. Bandemia has resolved. Overall improving sepsis with improving tachypnea. Check lactic acid. Monitor blood pressure. So far sepsis without endorgan damage. Suspected urinary source with urinary tract infection. Follow-up urinary culture. Continue cefepime, empiric vancomycin. No obstructive uropathy. If blood pressure remained steady, cut down hydrocortisone. With severe leukocytosis, assess peripheral smear. Pending COVID-19. She is also hypoxic. Status: Acute (2) UTI (urinary tract infection): As above. Status: Acute (3) Hypoxia: As above. Status: Acute (4) Collapse: Generalized weakness with collapse, resultant rhabdomyolysis. Suspect secondary to sepsis, possibly also hypoxia. Possibly adrenal insufficiency. Additional assessment management as above. Status: Acute (5) Light headedness: As above. Status: Acute (6) Chest pressure: Complete troponin and EKG series. Monitor on telemetry. Additional assessment with CT angiogram PE protocol as above. Status: Acute (7) CLL (chronic lymphocytic leukemia): Chronic leukocytosis, but on admission with neutrophilia, bandemia. Status: Chronic (8) Pacemaker: Interrogate Status: Chronic (9) Rhabdomyolysis: Improving. Follow-up. Status: Acute (10) Lung nodule: Suspicious lung nodule. Will need follow-up. Status: Acute Plan COPD DM2 HTN HLD Hypothyroidism Myasthenia: stress dose hydrocortisone Neuropathy Other chronic medical problems Attestations Medical Necessity Statement*: Continue admission for assessment of management of improving sepsis, new hypoxia, UTI. Coding Level of Care Code Acute Medical Office Technologist for [facility] Fwd Diagnoses Sepsis A41.9 UTI (urinary tract infection) N39.0 Hypoxia R09.02 Collapse R55 Light headedness R42 Chest pressure R07.89 CLL (chronic lymphocytic leukemia) C91.10 Pacemaker Z95.0 Rhabdomyolysis M62.82 Lung nodule R91.1
[2022-02-10] VITALS (12 sets, daily range): BP systolic 94–131; BP diastolic 51–67; PULSE 62–73; RESP 15–18; TEMP 36.5–36.9; O2SAT 92–99
[2022-02-10 04:53] LABS: Basophils # 0.1 10^3/uL (0.0-0.1); Basophils % 0.2 %; Eosinophils # 0.1 10^3/uL (0.0-0.8); Eosinophils % 0.2 %; Hematocrit 36.1 % (37.0-47.0); Hemoglobin 11.2 g/dL (11.5-15.3); Lymphocytes # 25.5 10^3/uL (0.8-4.8); Lymphocytes % 68.1 %; Mean Corpuscular Hemoglobin 28.8 pg (28.0-34.0); Mean Corpuscular Volume 92.8 fl (81-99); Monocytes # 3.7 10^3/uL (0.2-0.9); Monocytes % 9.8 %; Neutrophils # 8.04 10^3/uL (1.8-7.7); Neutrophils % 21.4 %; Nucleated Red Blood Cells % 0 %; Platelet Count 170 10^3/cmm (130-400); Red Blood Count 3.89 10^6/uL (4.1-5.3); Red Cell Distribution Width 13.8 % (12.1-15.1)
[2022-02-10 05:17] LABS: Alanine Aminotransferase 21 U/L (0-33); Albumin Level 2.9 g/dL (3.5-5.2); Alkaline Phosphatase 78 IU/L (35-105); Blood Urea Nitrogen 19 mg/dL (8-23); Calcium 8.4 mg/dL (8.5-10.5); Carbon Dioxide 21 mmol/L (22-29); Chloride 109 mmol/L (98-107); Globulin 2.5 g/dL (1.3-4.6); Glucose 188 mg/dL (65-115); Osmolality Calculated 299 mOsm/kg (285-295); Sodium 141 mmol/L (136-145); Total Bilirubin 0.3 mg/dL (0.15-1.2); Total Protein 5.4 g/dL (6.6-8.7)
[2022-02-10 05:30] LABS: Anion Gap 15.1 (5-19); Aspartate Amino Transferase 31 U/L (0-32); Potassium 4.1 mmol/L (3.5-5.1)
[2022-02-10 05:34] LABS: Creatine Phosphokinase 494 U/L (26-192)
[2022-02-10 05:35] LABS: White Blood Count 37.4 10^3/uL (4.0-10.0)
[2022-02-10 05:40] LABS: Slide Review Slide Review Perform
[2022-02-10] MEDS: ipratropium-albuterol 3 mL Neb INHALATION ×2 (07:51→14:41)
[2022-02-10 14:12] LABS: Quest SARS-CoV-2 RNA NOT DETECTED (NOT DETECTED)
[2022-02-10 15:38] LABS: Vancomycin Trough 9.7 ug/mL (10-15)
[2022-02-10] MEDS: cefepime 1,000 MG in sodium chloride 0.9% (plus) 50 ML 100 MG IV (16:06)
--- NOTE | 2022-02-10 20:05 | P.PN_ITS ---
Subjective Subjective: She is continuing to gradually improve. She has had difficulties with multiple IVs being lost, and had to be stuck many times. She denies any further urinary symptoms. Breathing gradually getting better. Vitals/I&O/Wt Last Vital Signs Temp 98.5 F 02/10/22 19:50 Pulse 65 02/10/22 19:50 Resp 15 02/10/22 19:50 BP 95/61 02/10/22 19:50 Pulse Ox 96 02/10/22 19:50 O2 Del Method 02/10/22 19:50 O2 Flow Rate 2 02/10/22 16:00 02/10/22 02/10/22 02/10/22 06:59 14:59 22:59 Intake Total 490 / 780 240 / 240 50 / 290 Balance 490 / 780 240 / 240 50 / 290 Weight last 48 hrs Weight 63.412 kg Weight 64.365 kg Physical Exam Narrative: accompanying her at bedside. Const: COMMON NORMALS: patient oriented x3 and alert GENERAL APPEARANCE: cooperative ORIENTATION/CONSCIOUSNESS: Yes awake HENMT: COMMON NORMALS: oropharynx normal Neck/C-Spine: COMMON NORMALS: no JVD Resp: COMMON NORMALS: normal respiratory effort and clear to auscultation bilaterally AUSCULTATION: clear to auscultation bilaterally Cardio: COMMON NORMALS: no JVD, regular rhythm, S1 normal heart sound present, S2 normal heart sound present and No murmurs present (Cardio) RHYTHM: regular rhythm HEART SOUNDS: S1 normal heart sound present and S2 normal heart sound present GI: COMMON NORMALS: Normal to inspection, nondistended, normoactive bowel sounds present and Soft to palpation PALPATION: Yes Soft to palpation and Yes Tenderness to palpation present (GI) (mild RLQ) Extremity: COMMON NORMALS: no joint enlargement and no pedal edema Neuro: COMMON NORMALS: patient oriented x3 and moves all extremities SENSORIUM/ORIENTATION: Yes alert Skin: COMMON NORMALS: no rashes or lesions noted GENERAL SKIN EXAM: no rashes or lesions noted Data : 02/10/22 04:39 02/10/22 04:39 Micro: Microbiology 02/08/22 16:12 Urine Culture - Final Urine,Clean Catch Escherichia coli 02/08/22 16:32 Blood Culture - Preliminary Blood NEGATIVE TO DATE 02/08/22 16:28 Blood Culture - Preliminary Blood NEGATIVE TO DATE A&P Assessment and plan (1) Sepsis: Resolving sepsis, but persistent leukocytosis, today 37.4, worse than yesterday. Neutrophil fraction is decreasing, however. Lymphocyte fraction appears to be increasing. Possibly some contribution with demargination from steroids. However, I would like to see her peripheral smear which has been requested. She otherwise is afebrile. Urinary symptoms have resolved. Breathing is improving she has weaned down on oxygen. Bandemia has resolved. She has had very difficult time with losing multiple IVs, having to be stuck multiple times. Midline catheter has been considered, however, as we are getting the culture back today, with pansensitive E. coli, otherwise improving, she may be able to transition to oral therapy now. Blood pressure soft, for now continue hydrocortisone. If blood pressure steadies, will cut down hydrocortisone. Negative COVID-19. Status: Acute (2) UTI (urinary tract infection): As above. Status: Acute (3) Hypoxia: As above. Status: Acute (4) Collapse: Generalized weakness with collapse, resultant rhabdomyolysis. Suspect secondary to sepsis, possibly also hypoxia. Possibly adrenal insufficiency. Additional assessment management as above. Status: Acute (5) Light headedness: As above. Status: Acute (6) Chest pressure: Resolved. No PE on CTA. Acute [place] not suggested. Status: Acute (7) CLL (chronic lymphocytic leukemia): Chronic leukocytosis, but on admission with neutrophilia, bandemia. Status: Chronic (8) Pacemaker: Interrogate Status: Chronic (9) Rhabdomyolysis: Resolving. Status: Acute (10) Lung nodule: Suspicious lung nodule. Will need follow-up. Status: Acute Plan COPD DM2 HTN HLD Hypothyroidism Myasthenia: stress dose hydrocortisone Neuropathy Other chronic medical problems Attestations Medical Necessity Statement*: Continue admission for assessment of management of persistent high leukocytosis with sepsis on presentation, UTI, and a lady with underlying CLL. Coding Level of Care Code Acute Professor Sculpture for [facility] Fwd Diagnoses Sepsis A41.9 UTI (urinary tract infection) N39.0 Hypoxia R09.02 Collapse R55 Light headedness R42 Chest pressure R07.89 CLL (chronic lymphocytic leukemia) C91.10 Pacemaker Z95.0 Rhabdomyolysis M62.82 Lung nodule R91.1
[2022-02-10 21:30] LABS: Glucose Point of Care 261 mg/dL (70-110)
[2022-02-10] MEDS: enoxaparin 40 mg/0.4 mL Syringe SUBCUT (21:47)
[2022-02-10] MEDS: insulin lispro 100 unit/1 mL SUBCUT (21:47)
[2022-02-10] MEDS: acetaminophen 325 mg Tablet 650 MG PO (21:47)
[2022-02-10] MEDS: hydrocortisone 10 mg Tablet 25 MG PO (21:51)
[2022-02-11] VITALS (10 sets, daily range): BP systolic 92–121; BP diastolic 52–69; PULSE 61–78; RESP 16–30; TEMP 36.5–36.7; O2SAT 92–99
[2022-02-11] MEDS: ipratropium-albuterol 3 mL Neb INHALATION (05:30)
[2022-02-11 06:42] LABS: Glucose Point of Care 153 mg/dL (70-110)
[2022-02-11] MEDS: budesonide 0.5 mg/2 mL Neb INHALATION (08:43)
[2022-02-11] MEDS: pantoprazole DR 40 mg Tablet PO (09:40)
[2022-02-11] MEDS: insulin lispro 100 unit/1 mL SUBCUT ×2 (09:40→12:33)
[2022-02-11] MEDS: cefdinir 300 MG CAPSULE PO (09:40)
[2022-02-11] MEDS: levothyroxine 88 mcg Tablet PO (09:40)
[2022-02-11] MEDS: lactulose oral liq 20 gm/30 mL UDC PO (09:43)
[2022-02-11] MEDS: hydrocortisone 10 mg Tablet 25 MG PO ×2 (11:06→16:49)
[2022-02-11] MEDS: insulin glargine 100 units/1 mL 10 UNIT SUBCUT (11:08)
[2022-02-11 11:33] LABS: Glucose Point of Care 224 mg/dL (70-110)
--- NOTE | 2022-02-11 13:31 | PM.DCS ---
Discharge Providers Date of Admission: 02/08/22 16:15 Date of Discharge: February 11, 2022 Attending Provider at Admission: Banadr Jane Attending Provider at Discharge: Bandar Jane Primary Care Provider: MARLO Sharma Diagnoses at Discharge Discharge Diagnosis (1) Sepsis: Status: Acute (2) UTI (urinary tract infection): Status: Acute (3) Hypoxia: Status: Acute (4) Collapse: Status: Acute (5) Light headedness: Status: Acute (6) Chest pressure: Status: Acute (7) CLL (chronic lymphocytic leukemia): Status: Chronic (8) Pacemaker: Status: Chronic Permanent problem details: 04/05/2019 (9) Rhabdomyolysis: Status: Acute (10) Lung nodule: Status: Acute Reason for Visit Reason for Visit: CHEST PAIN, FALL Hospital Course Hospital Course Pleasant 81-year-old lady with CLL, COPD, lung nodule, myasthenia, pacemaker, was admitted due to generalized weakness after a collapse at home, staying for about 2 hours on the floor, sustaining rhabdomyolysis, on admission with sepsis with leukocytosis 26.9 with bandemia, with tachypnea 25 breaths per minute, without endorgan damage. Also noted to have new hypoxia, requiring 6 L of oxygen. Found to have urinary tract infection. No focal pneumonia noted on chest x-ray, additionally assessed with CT angiogram chest, negative for PE. With noted right middle lobe and left lower lobe chronic pleural-parenchymal scarring versus atelectasis. Left lower lobe demonstrates minimal chronic herniation of the lung parenchyma into the left posterior lateral aspect of the thorax. Aberrant right subclavian artery, normal variant. Left upper lobe focal nodular airspace opacification increased in size to 13 mm from previously 9.8 mm. Highly suspicious nodule. Consider nonemergent PET/CT or tissue sampling. COVID-19 PCR was sent, and was negative. She was treated with cefepime for urinary tract infection, empirically initially on vancomycin as well. Due to history of myasthenia, history of steroid use, was also treated with hydrocortisone, with noted soft blood pressures to avoid adrenal crisis. Urine eventually grew E. coli. Her urinary symptoms resolved. Sepsis resolved. Rhabdomyolysis resolved. Hypoxia has been gradually improving. She has been having symptoms of bronchitis, suspected viral, although COVID-19 came back negative. With persistent leukocytosis, 37.4, but anemia had resolved, although neutrophils have remained stable, some lymphocytosis is noted worse than usual. Peripheral smear with reported typical cells, smudge cells, discussed with her aircraft line assembler, and this would not be unexpected with her CLL and response to acute illness. This will need follow-up, however, and she is asked to see hematology in 1 month. As she is overall feeling better, she is now also weaned off oxygen and not requiring home O2 on evaluation. She is discharged home to complete antibiotic course with Levaquin and follow-up on outpatient basis. Hydrocortisone taper. Please follow-up her recovery, assist in taper of hydrocortisone. Reassess blood counts. Once she recovers from acute illness, please also refer her for assessment of suspicious left upper lobe nodule which has increased in size. Physical Exam Narrative: Sitting up, playing cards with her . Const: COMMON NORMALS: patient oriented x3 and alert GENERAL APPEARANCE: cooperative ORIENTATION/CONSCIOUSNESS: Yes awake HENMT: COMMON NORMALS: oropharynx normal OTHER: Mild dysphonia Neck/C-Spine: COMMON NORMALS: no JVD Resp: COMMON NORMALS: normal respiratory effort and clear to auscultation bilaterally AUSCULTATION: clear to auscultation bilaterally Cardio: COMMON NORMALS: no JVD, regular rhythm, S1 normal heart sound present, S2 normal heart sound present and No murmurs present (Cardio) RHYTHM: regular rhythm HEART SOUNDS: S1 normal heart sound present and S2 normal heart sound present GI: COMMON NORMALS: Normal to inspection, nondistended, normoactive bowel sounds present and Soft to palpation PALPATION: Yes Soft to palpation and Yes Tenderness to palpation present (GI) (mild RLQ) Extremity: COMMON NORMALS: no joint enlargement and no pedal edema Neuro: COMMON NORMALS: patient oriented x3 and moves all extremities SENSORIUM/ORIENTATION: Yes alert Skin: COMMON NORMALS: no rashes or lesions noted GENERAL SKIN EXAM: no rashes or lesions noted Discharge Data Studies Completed and Pending Completed Studies During Hospitalization Category Date Time Status CT head wo con* [id number] Urgent Cat Scan 02/08/22 14:[address] kidney stone [id number] Routine Cat Scan 02/08/22 18:31 Completed CTA chest [CT angio chest PE protcl [id number]] Routine Cat Scan 02/08/22 18:31 Completed XR chest 1V portable [id number] Stat Exams 02/08/22 14:48 Completed XR lumbar spine 2-3V* [id number] Urgent Exams 02/08/22 14:50 Completed XR thoracic spine 2V [id number] Urgent Exams 02/08/22 14:50 Completed Pending at discharge Category Date Time Status Blood Culture Stat Lab 02/08/22 16:32 Results Radiology Impressions Chest X-Ray 02/08/22 14:48 IMPRESSION: No acute findings. Head CT 02/08/22 14:50 IMPRESSION: 1. No evidence of intracranial hemorrhage or mass effect. 2. Moderate small vessel changes with moderate parenchymal volume loss. 3. No acute intracranial findings. Lumbar Spine X-Ray 02/08/22 14:50 IMPRESSION: No acute findings. Thoracic Spine X-Ray 02/08/22 14:50 IMPRESSION: No acute findings. Abdomen/Pelvis CT 02/08/22 18:31 IMPRESSION: 1. Negative for acute inflammatory process in the abdomen or pelvis. 2. Right middle lobe subsegmental airspace opacity incompletely visualized, somewhat similar to prior exams. 3. Emphysematous changes. 4. Left lower lobe chronic pleuroparenchymal scarring. 5. Cholecystectomy. 6. Bilateral nonobstructing renal calyceal stones. 7. Perinephric edema bilaterally suggestive of chronic renal insufficiency. 8. Right kidney upper pole cyst, negative for follow-up advised. 9. Small amount of edema in the central mesentery with some prominent subcentimeter lymph nodes suggestive of a chronic inflammatory process such as sclerosing mesenteritis. 10. Subcutaneous emphysema over the left abdominal wall in the subcutaneous fat likely reflecting sequelae of an injection. Chest CTA 02/08/22 18:31 IMPRESSION: 1. Negative for pulmonary embolus. 2. Coronary artery atherosclerotic calcifications. 3. Right middle lobe and left lower lobe chronic pleuroparenchymal scarring versus atelectasis. 4. Left lower lobe demonstrates minimal chronic herniation of the lung parenchyma into the left posterolateral aspect of the thorax. 5. Aberrant right subclavian artery, normal variant. 6. Left upper lobe 13 mm focal nodular airspace opacification, increasingly prominent compared to prior exam at which time it measured approximately 9.8 mm. Highly suspicious nodule(s). Consider non-emergent PET/CT, or tissue sampling.(Reference: Marty) REFERENCES: Marty Vergara, et al. Guidelines for Management of Incidental Pulmonary Nodules Detected on CT Images: From the Fleischner Society 2017. Radiology. 2017;284(1):228-243. Laboratory Results WBC 37.4 10^3/uL (4.0-10.0) H* 02/10/22 04:39 RBC 3.89 10^6/uL (4.1-5.3) L 02/10/22 04:39 Hgb 11.2 g/dL (11.5-15.3) L 02/10/22 04:39 Hct 36.1 % (37.0-47.0) L 02/10/22 04:39 MCV 92.8 fl (81-99) 02/10/22 04:39 MCH 28.8 pg (28.0-34.0) 02/10/22 04:39 MCHC 31.0 g/dL (30.0-36.0) 02/10/22 04:39 RDW 13.8 % (12.1-15.1) 02/10/22 04:39 Plt Count 170 10^3/cmm (130-400) 02/10/22 04:39 MPV 10.0 fL (7.4-10.4) 02/10/22 04:39 Neut % (Auto) 21.4 % 02/10/22 04:39 Lymph % (Auto) 68.1 % 02/10/22 04:39 Morrow % (Auto) 9.8 % 02/10/22 04:39 Eos % (Auto) 0.2 % 02/10/22 04:39 Baso % (Auto) 0.2 % 02/10/22 04:39 Neut # (Auto) 8.04 10^3/uL (1.8-7.7) H 02/10/22 04:39 Lymph # (Auto) 25.5 10^3/uL (0.8-4.8) H 02/10/22 04:39 Morrow # (Auto) 3.7 10^3/uL (0.2-0.9) H 02/10/22 04:39 Eos # (Auto) 0.1 10^3/uL (0.0-0.8) 02/10/22 04:39 Baso # (Auto) 0.1 10^3/uL (0.0-0.1) 02/10/22 04:39 Nucleated RBC % (auto) 0 % 02/10/22 04:39 Total Counted 100 (0-100) 02/08/22 15:07 Atypical Lymphs % 13.0 % (0-5) H 02/08/22 15:07 Absolute Neutrophils 11.8 10^3/cmm (1.4-6.5) H 02/08/22 15:07 Segmented Neutrophils 31 % 02/08/22 15:07 Abs Segm Neuts (Man) 8.3 10/cmm (1.6-7.1) H 02/08/22 15:07 Band Neutrophils 13.0 % 02/08/22 15:07 Abs Band Neuts (Man) 3.5 10^3/cmm (0.0-1.2) H 02/08/22 15:07 Absolute Lymphocytes 12.9 10^3/cmm (1.2-3.4) H 02/08/22 15:07 Lymphocytes (Manual) 35 % 02/08/22 15:07 Monocytes (Manual) 8.0 % 02/08/22 15:07 Absolute Monocytes 2.2 10^3/cmm (0.1-0.6) H 02/08/22 15:07 Eosinophils (Manual) 0 % 02/08/22 15:07 Absolute Eosinophils 0.0 10^3/cmm (0.0-0.7) 02/08/22 15:07 Basophils (Manual) Not Reportable 02/08/22 15:07 Nucleated RBCs # 0.0 /100WBC 02/10/22 04:39 Toxic Granulation 1+ H 02/08/22 15:07 Dohle Bodies 1+ H 02/08/22 15:07 Platelet Estimate Normal (Normal) 02/08/22 15:07 Haptoglobin 210.0 mg/L (30-200) H 02/08/22 15:07 D-Dimer 1.05 ug/mIFEU (0-0.59) H 02/08/22 15:07 Specimen Type Arterial 02/08/22 15:55 Sample Site Radial, left 02/08/22 15:55 ABG pH 7.42 (7.35-7.45) 02/08/22 15:55 ABG pCO2 32.9 mmHg (35-45) L 02/08/22 15:55 ABG pO2 344.0 mmHg (80.0-100.0) H 02/08/22 15:55 ABG HCO3 21.5 mmol/L (22-26) L 02/08/22 15:55 ABG Base Excess -2.2 mmol/L (-2.0-2.0) L 02/08/22 15:55 Ruben Test Pos 02/08/22 15:55 Hematocrit 40.3 % (37-47) 02/08/22 15:55 O2 Delivery Device Nrb 02/08/22 15:55 O2 Liters/Min 10.0 % 02/08/22 15:55 FiO2 100.0 % 02/08/22 15:55 Crime Scene Technician ID Monro 02/08/22 15:55 Sodium 141 mmol/L (136-145) 02/10/22 04:39 Potassium 4.1 mmol/L (3.5-5.1) 02/10/22 04:39 Chloride 109 mmol/L (98-107) H 02/10/22 04:39 Carbon Dioxide 21 mmol/L (22-29) L 02/10/22 04:39 Anion Gap 15.1 (5-19) 02/10/22 04:39 BUN 19 mg/dL (8-23) 02/10/22 04:39 Creatinine 0.5 mg/dL (0.5-0.9) 02/10/22 04:39 GFR Calculation Not Reportable 02/10/22 04:39 Glucose 188 mg/dL (65-115) H 02/10/22 04:39 POC Glucose 224 mg/dL (70-110) H 02/11/22 11:25 Calculated Osmolality 299 mOsm/kg (285-295) H 02/10/22 04:39 Lactic Acid 0.9 mmol/L (0.5-2.2) 02/08/22 19:46 Lactate Cancelled 02/08/22 19:46 Calcium 8.4 mg/dL (8.5-10.5) L 02/10/22 04:39 Phosphorus 2.8 mg/dL (2.5-4.5) 02/08/22 15:07 Total Bilirubin 0.3 mg/dL (0.15-1.2) 02/10/22 04:39 AST 31 U/L (0-32) 02/10/22 04:39 ALT 21 U/L (0-33) 02/10/22 04:39 Alkaline Phosphatase 78 IU/L (35-105) 02/10/22 04:39 Lactate Dehydrogenase 206 U/L (135-214) 02/08/22 15:07 Creatine Kinase 494 U/L (26-192) H* 02/10/22 04:39 Creatine Kinase Cancelled 02/10/22 04:39 Troponin T Baseline 20 ng/L (0-10) H 02/08/22 15:07 Troponin T 120 Minute 18.45 ng/L (0-10) H 02/08/22 17:09 Delta Troponin T -1.55 ABS# (0-10) L 02/08/22 17:09 Troponin T Hi Sens 6Hr 15.79 ng/L (0-10) H 02/08/22 21:45 Troponin T Hi Sens 6Hr Delta -4.21 ng/L (0-12) L 02/08/22 21:45 Total Protein 5.4 g/dL (6.6-8.7) L 02/10/22 04:39 Albumin 2.9 g/dL (3.5-5.2) L 02/10/22 04:39 Globulin 2.5 g/dL (1.3-4.6) 02/10/22 04:39 Lipase 27 U/L (13-60) 02/08/22 15:07 Urine Color Yellow (Yellow) 02/08/22 16:12 Urine Appearance Sl hazy (CLEAR) 02/08/22 16:12 Urine pH 5 (5-7) 02/08/22 16:12 Ur Specific [place] 1.015 (1.005-1.030) 02/08/22 16:12 Urine Protein 1+ (Negative) H 02/08/22 16:12 Urine Glucose (UA) 4+ (Normal) H 02/08/22 16:12 Urine Ketones 2+ (Negative) H 02/08/22 16:12 Urine Blood 3+ (Negative) H 02/08/22 16:12 Urine Nitrate Positive (Negative) H 02/08/22 16:12 Urine Bilirubin Neg (Negative) 02/08/22 16:12 Urine Urobilinogen Norm mg/dL (Negative) 02/08/22 16:12 Ur Leukocyte Esterase Trace (Negative) H 02/08/22 16:12 Urine RBC 0-4 /hpf (0-2) H 02/08/22 16:12 Urine WBC 55-80 /hpf (0-5) H 02/08/22 16:12 Ur Squamous Epith Cells 0-4 /hpf (0-5) H 02/08/22 16:12 Amorphous Sediment Not Reportable 02/08/22 16:12 Urine Bacteria 4+ /hpf (NONE) H 02/08/22 16:12 Urine Mucus Trace /hpf 02/08/22 16:12 Vancomycin Trough 9.7 ug/mL (10-15) L 02/10/22 15:01 Serum Ketones Negative (Negative) 02/08/22 15:07 SARS-CoV-2 RNA (RT-PCR) Not detected (NOT DETECTED) 02/08/22 20:17 Vitals Last Vital Signs Temp 97.7 F 02/11/22 07:31 Pulse 78 02/11/22 11:46 Resp 16 02/11/22 11:46 BP 95/53 02/11/22 11:46 Pulse Ox 94 02/11/22 11:46 O2 Del Method 02/11/22 08:43 O2 Flow Rate 2 02/11/22 08:43 Discharge Plan Discharge Patient Disposition: Home Condition: Stable Prescriptions: New levofloxacin 500 mg tablet 500 mg PO DAILY 7 Days Qty: 7 0RF hydrocortisone 10 mg Tablet See Rx Instructions .ROUTE .COMPLEX 11 Days Qty: 22 0RF Rx Instructions: 2 tab BID for 3 days, then 1 BID for 3 days, then 1 daily for 3 days, then 1/2 daily for 2 days Continued (DME) lancets [TRUEplus Lancets] 33 gauge misc See Rx Instructions .Route Qty: 100 5RF Rx Instructions: use one 3 times day (DME) True Metrix Glucose Test Strip Strip See Rx Instructions .Route Qty: 100 5RF Rx Instructions: one strip 3 times day (DME) Power chair repair See Rx Instructions .Route .MEDSUPPLY Qty: 1 0RF Rx Instructions: Repair power chair and maintenance (DME) FreeStyle William 2 Sensor Kit See Rx Instructions .ROUTE .MEDSUPPLY Qty: 2 11RF Rx Instructions: change every 14 days (DME) FreeStyle William 2 Sanderson Misc See Rx Instructions .ROUTE .MEDSUPPLY Qty: 1 0RF Rx Instructions: As directed albuterol sulfate [Proventil HFA] 90 mcg/actuation HFA aerosol inhaler 2 puff INHALATION QID PRN (Reason: Shortness Of Breath) Qty: 6.7 1RF albuterol sulfate 2.5 mg /3 mL (0.083 %) solution for nebulization 2.5 mg inhalation Q4H PRN (Reason: shortness of breath or wheezing) Qty: 75 5RF furosemide 20 mg tablet 20 mg PO BID PRN (Reason: edema) Qty: 180 1RF levothyroxine 88 mcg tablet 88 mcg PO DAILY Qty: 90 1RF insulin aspart U-100 [Novolog Flexpen U-100 Insulin] 100 unit/mL (3 mL) insulin pen See Rx Instructions SUBCUT TID Qty: 15 2RF Rx Instructions: 110-129=3U 130-150=6U 151-200=9U 201-250=12U 251-300=15U 301-350=18U 351-400=21U >400=24U SUBCUT three times daily; budesonide [Pulmicort] 0.5 mg/2 mL suspension for nebulization 0.5 mg inhalation BID Qty: 180 1RF lactulose 10 gram packet 20 g PO BID 30 Days Qty: 15 2RF Airborne Gummy 250-11.66 mg Tablet,Chewable 1 tab PO DAILY simvastatin 20 mg tablet 20 mg PO BEDTIME tolterodine [Detrol] 2 mg tablet 2 mg PO DAILY PRN (Reason: urinary frequency) fluticasone propionate [Flonase Allergy Relief] 50 mcg/actuation spray,suspension 2 spray INTRANASAL DAILY PRN (Reason: Allergy Symptoms) Changed Toujeo Max U-300 SoloStar 300 unit/mL (3 mL) insulin pen 20 unit SUBCUT DAILY Qty: 6 0RF Discharge Orders: Discharge Order (Routine); Ordered 02/11/22 Ordered By: Bandar Jane Referrals: Adam Anguiano FNP-C [Primary Care Provider] - 02/17/22 11:40 am Delbert Rendon [Referring] - 1 month (Or per appointment if an appointment is sooner) Discharge Activity: Increase activity as tolerated Patient Instructions: Levofloxacin (By mouth), Hydrocortisone (By mouth), Opioid Safety Activity Restrictions/Additional Instructions: Complete antibiotic course for UTI and bronchitis. Continue nebulizer treatments at home. Follow-up with your primary doctor for reassessment for improvement from UTI, bronchitis. For reassessment of blood counts. Follow-up also with your aircraft line assembler in clinic in 1-2 months for reassessment of blood counts to make sure they are improving and that there is no concern of progression of your leukemia. In case you experience any worsening in your condition or any concerning symptoms, please seek medical attention. Please discuss with your aircraft line assembler assessment with immunoglobulin panel. Please discuss with your primary doctor as well as your oncology doctor regarding left lung 13 mm nodule which increased from 9.8 mm previously. Please discuss assessment with PET/CT. Discharge Attestations Time Spent in Discharge Care*: greater than 30 min Quality Metrics Clinical Quality Measures [ No reported AMI, CVA or VTE this stay] Coding Level of Care Code Acute Chg FW DC note Diagnoses Sepsis A41.9 UTI (urinary tract infection) N39.0 Hypoxia R09.02 Collapse R55 Light headedness R42 Chest pressure R07.89 CLL (chronic lymphocytic leukemia) C91.10 Pacemaker Z95.0 Rhabdomyolysis M62.82 Lung nodule R91.1
--- NOTE | 2022-02-11 15:31 | PC.SOCIAL ---
IMM Update pg 2 of IMM updated and reviewed w/ patient. Copy provided and Copy dated, initialed and placed in chart.
--- NOTE | 2022-02-11 16:53 | PC.NURSE ---
Discharge discussed with patient and son. All medications, follow up appointments and concerns. Verbalized understanding
== END 2022-02-11 17:08 | disposition home or self-care (01) | DRG 872 ==
LOC: ER 16:53 → MEDSURG 19:12
PROVIDERS: Admitting Provider Internal Medicine; Emergency Provider Emergency Medicine; PCP Nurse Practitioner; Visit Provider Internal Medicine
DX: A41.9 Sepsis, unspecified organism (principal); N39.0 Urinary tract infection, site not specified; C91.10 Chronic lymphocytic leukemia of B-cell type not having achieved remission; M62.82 Rhabdomyolysis; R09.02 Hypoxemia; R91.1 Solitary pulmonary nodule; B96.20 Unspecified Escherichia coli [E. coli] as the cause of diseases classified elsewhere; R07.89 Other chest pain; J44.9 Chronic obstructive pulmonary disease, unspecified; G70.9 Myoneural disorder, unspecified; E89.0 Postprocedural hypothyroidism; E11.40 Type 2 diabetes mellitus with diabetic neuropathy, unspecified; E78.5 Hyperlipidemia, unspecified; I10 Essential (primary) hypertension; R42 Dizziness and giddiness; Z95.0 Presence of cardiac pacemaker; Z87.891 Personal history of nicotine dependence; Z92.21 Personal history of antineoplastic chemotherapy; Z20.822 Contact with and (suspected) exposure to COVID-19
CPT/HCPCS: 36415; 36416; 36600; 70450; 71045; 71275; 72070; 72100; 74176; 80053; 80202; 80503; 81001; 82009; 82550; 82803; 82962; 83010; 83605; 83615; 83690; 84100; 84484; 85007; 85025; 85378; 87040; 87077; 87086; 87186; 87635; 93005; 94640; 94664; 96365; 96367; 96372; 99285; C9113; J0692; J1650; J1720; J1815; J3370; J7040; J7050; J7626; J8499; Q9967

== ENCOUNTER 2022-02-16 13:29 | Oncology outpatient (recurring) (ONCR) | payer MEDICARE, OTHER, SELFPAY | END 2022-03-09 23:59 | disposition home or self-care (01) | PROVIDERS: PCP Nurse Practitioner; Visit Provider Internal Medicine Medical Oncology | DX: C91.10 Chronic lymphocytic leukemia of B-cell type not having achieved remission (principal); R91.1 Solitary pulmonary nodule; R35.0 Frequency of micturition; R05.9 Cough, unspecified; R06.02 Shortness of breath; K59.00 Constipation, unspecified; R35.1 Nocturia; R42 Dizziness and giddiness | CPT/HCPCS: 99214 ==

== ENCOUNTER → 2022-04-06 14:16 | Outpatient (BNVA) | payer MEDICARE, OTHER, SELFPAY | PROVIDERS: PCP Nurse Practitioner; Visit Provider Internal Medicine Cardiovascular Disease | DX: M79.606 Pain in leg, unspecified (principal); Z95.0 Presence of cardiac pacemaker; I10 Essential (primary) hypertension; E11.65 Type 2 diabetes mellitus with hyperglycemia; Z79.4 Long term (current) use of insulin; E78.2 Mixed hyperlipidemia; G70.00 Myasthenia gravis without (acute) exacerbation; J44.9 Chronic obstructive pulmonary disease, unspecified; C91.10 Chronic lymphocytic leukemia of B-cell type not having achieved remission; E03.9 Hypothyroidism, unspecified; Z87.891 Personal history of nicotine dependence | CPT/HCPCS: 99214 ==

== ENCOUNTER → 2022-04-08 09:29 | Outpatient (BNVA) | payer MEDICARE, OTHER, SELFPAY | PROVIDERS: PCP Nurse Practitioner; Visit Provider Nurse Practitioner | DX: E11.65 Type 2 diabetes mellitus with hyperglycemia (principal); Z79.4 Long term (current) use of insulin | CPT/HCPCS: 80053; 80061; 83036; 84443 ==

== ENCOUNTER 2022-05-16 10:22 | Outpatient (CLI) | payer MEDICARE, OTHER, SELFPAY ==
--- NOTE | 2022-05-16 11:00 | CT_ITS ---
WS: [id number] CT CHEST TECHNIQUE: Contrast enhanced CT of the chest with coronal and sagittal reformatted images. CLINICAL INFORMATION: Surveillance for pulmonary nodule COMPARISON: CTA February 08, 2022 DLP: 650.[address] scans at [facility] use at least one of these dose optimization techniques: automated e xposure control; mA and/or kV adjustment per patient size (includes targeted exams where dose is matc hed to clinical indication); or iterative reconstruction. FINDINGS: Progressed RIGHT greater than LEFT axillary lymphadenopathy. Largest RIGHT axillary lymph node measur es 1.9 x 1.3 cm. This is new since February 08, 2022 Moderate chronic emphysematous changes. No acute pulmonary infiltrates. No focal pneumonia or pleural fluid. LEFT upper lobe airspace opacity extending to the pleura is stable dating back to September 09 022. Micronodular infiltrates in this area dating back to 2017. Favor this is most likely inflammator y but technically indeterminate. Recommend 6 month follow-up chest CT and/or further evaluation with PET/CT. Aortic calcification. Proximal main pulmonary arteries are normal. Coronary calcification. Aberrant R IGHT subclavian artery. No mediastinal or hilar lymphadenopathy. Cholecystectomy clips. Hepatomegaly. Splenomegaly. Adrenal glands are normal. Small RIGHT renal cyst. Tiny esophageal hiatal hernia. CT/CT chest w con* [id number] IMPRESSION: 1. Irregular airspace opacity LEFT upper lobe laterally appears unchanged sinc e October 06, 2021. Micronodular infiltrates in this area dating back to 2017. Re commend 6 month follow-up chest CT. 2. Enlarging lymphadenopathy the RIGHT greater than LEFT axilla appear progres sed compared to February 08, 2022. Largest lymph node in the RIGHT axilla measure s 1.9 x 1.3 CM. This can be further evaluated ultrasound guided biopsy and/or P ET/CT. 3. Pleural-parenchymal scarring in the RIGHT middle lobe is unchanged. 4. No other significant interval changes.
[2022-05-16] MEDS: iohexol 350 mg/mL 100 mL Btl IV (11:18)
== END 2022-05-16 10:23 | disposition home or self-care (01) ==
LOC: RAD 10:22
PROVIDERS: PCP Nurse Practitioner; Visit Provider Internal Medicine Medical Oncology
DX: C91.10 Chronic lymphocytic leukemia of B-cell type not having achieved remission (principal); R91.1 Solitary pulmonary nodule; R59.1 Generalized enlarged lymph nodes
CPT/HCPCS: 71260

== ENCOUNTER 2022-06-01 10:32 | Oncology outpatient (recurring) (ONCR) | payer MEDICARE, OTHER, SELFPAY ==
[2022-06-01 10:58] LABS: Basophils # 0.1 10^3/uL (0.0-0.1); Basophils % 0.3 %; Eosinophils # 0.2 10^3/uL (0.0-0.8); Eosinophils % 0.4 %; Hematocrit 50.3 % (37.0-47.0); Hemoglobin 15.8 g/dL (11.5-15.3); Lymphocytes # 29.1 10^3/uL (0.8-4.8); Lymphocytes % 74.8 %; Mean Corpuscular HGB Conc 31.4 g/dL (30.0-36.0); Mean Corpuscular Hemoglobin 29.4 pg (28.0-34.0); Mean Corpuscular Volume 93.5 fl (81-99); Monocytes # 3.5 10^3/uL (0.2-0.9); Monocytes % 8.9 %; Neutrophils # 5.93 10^3/uL (1.8-7.7); Neutrophils % 15.3 %; Nucleated Red Blood Cells % 0 %; Platelet Count 183 10^3/cmm (130-400); Red Blood Count 5.38 10^6/uL (4.1-5.3); Red Cell Distribution Width 13.1 % (12.1-15.1)
[2022-06-01 11:15] LABS: Alanine Aminotransferase 17 U/L (0-33); Albumin Level 4.3 g/dL (3.5-5.2); Alkaline Phosphatase 86 U/L (35-105); Aspartate Amino Transferase 21 U/L (0-32); Blood Urea Nitrogen 21 mg/dL (8-23); Calcium 9.3 mg/dL (8.5-10.5); Carbon Dioxide 24 mmol/L (22-29); Chloride 103 mmol/L (98-107); Glucose 73 mg/dL (65-115); Osmolality Calculated 290 mOsm/kg (285-295); Sodium 139 mmol/L (136-145); Total Bilirubin 0.5 mg/dL (0.15-1.2); Total Protein 7.3 g/dL (6.6-8.7)
[2022-06-01 11:27] LABS: Anion Gap 16.4 (5-19); Lactate Dehydrogenase 266 U/L (135-214); Potassium 4.4 mmol/L (3.5-5.1)
[2022-06-01 11:35] LABS: Slide Review Slide Review Perform; White Blood Count 38.9 10^3/uL (4.0-10.0)
[2022-06-01 13:35] LABS: Protein Urine Neg (Negative); Specific Gravity, Urine 1.005 (1.005-1.030); Urine Appearance Clear (CLEAR); Urine Color Yellow (Yellow); pH Urine 5 (5-7)
[2022-06-01 13:36] LABS: Add Urine Culture? No; Bacteria Urine TRACE /hpf; Bilirubin Urine Neg (Negative); Blood Urine Neg (Negative); Glucose Urine UA 4+ (Normal); Ketones Urine Negative (Negative); Leukocyte Esterase Urine Negative (Negative); Nitrate Urine Negative (Negative); Squamous Epithelial Cell Urine 0-4 /hpf (0-5); Urobilinogen Urine Norm (Negative)
== END 2022-06-08 23:59 | disposition home or self-care (01) ==
PROVIDERS: PCP Nurse Practitioner; Visit Provider Internal Medicine Medical Oncology
DX: C91.10 Chronic lymphocytic leukemia of B-cell type not having achieved remission (principal); R91.1 Solitary pulmonary nodule; R35.0 Frequency of micturition; R05.9 Cough, unspecified; R06.02 Shortness of breath; K59.00 Constipation, unspecified; R35.1 Nocturia; R42 Dizziness and giddiness
CPT/HCPCS: 36415; 80053; 81001; 83615; 85025; 87077; 87086; 87186; 99214

== ENCOUNTER 2022-06-24 14:22 | Outpatient (CLI) | payer MEDICARE, OTHER, SELFPAY ==
--- NOTE | 2022-06-24 15:00 | USCV_ITS ---
Davide Felicitas Age: 82 Gender: F : 1940 Exam Date: 06/24/2022 14:58 Ordering Phys: Aimee Ramos MD ([email or web address]) Technologist: ALESSANDRA [place] [facility] [place]: pain and cold feet Risk Factors: Previous Vascular Surgery: RIGHT LEFT BP: 113.0 / 62.00 BP: 119.0/ 77.00 0 0 Waveform Velocity (cm/s) Velocity (cm/s) Waveform Biphasic 85.9 Iliac Prox 97.5 Triphasic Biphasic 87.7 Iliac Mid 91.7 Triphasic Triphasic 60.3 Iliac Distal 82.5 Biphasic Biphasic 120.9 POULTRY FARMER EGG 82.5 Biphasic Biphasic 105.2 SFA Prox 101.2 Biphasic Biphasic 110.4 SFA Mid 92.0 Biphasic Biphasic 78.6 SFA Dist 63.2 Biphasic Biphasic 65.8 POP 88.0 Biphasic Biphasic 35.0 YEAST [employer]KE CUTTER 33.3 Biphasic Biphasic 53.2 DPA 60.5 Biphasic 1.2 FIONA 1.2 FINDINGS Intimal thickening in the iliac and femoral arteries bilaterally Normal arterial Doppler flow velocities Near normal Doppler waveforms Resting FIONA 1.2 on the right and left side CONCLUSIONS 1. Normal resting ABIs bilaterally suggesting no significant arterial obstruction. 2. Intimal thickening in the iliac and femoral arteries bilaterally Dr Aimee Ramos MD [facility] (Electronically Signed) Final Date: 24 June 2022 21:45 S
== END 2022-06-24 14:23 | disposition home or self-care (01) ==
LOC: RAD 14:26
PROVIDERS: PCP Nurse Practitioner; Visit Provider Internal Medicine Cardiovascular Disease
DX: I73.9 Peripheral vascular disease, unspecified (principal); M79.606 Pain in leg, unspecified
CPT/HCPCS: 93925

== ENCOUNTER → 2022-06-27 10:37 | Outpatient (BNVA) | payer MEDICARE, OTHER, SELFPAY | PROVIDERS: PCP Nurse Practitioner; Visit Provider Nurse Practitioner | DX: E11.65 Type 2 diabetes mellitus with hyperglycemia (principal); Z79.4 Long term (current) use of insulin; J44.9 Chronic obstructive pulmonary disease, unspecified; E03.9 Hypothyroidism, unspecified; I10 Essential (primary) hypertension; R35.0 Frequency of micturition; E55.9 Vitamin D deficiency, unspecified; I73.9 Peripheral vascular disease, unspecified | CPT/HCPCS: 80053; 80061; 82306; 82607; 83036; 84443; 85007; 85025 ==

== ENCOUNTER 2022-08-01 09:16 | Emergency (ER) | payer MEDICARE, OTHER, SELFPAY ==
[2022-08-01 09:43] VITALS: BP 147/94; PULSE 75; RESP 15; TEMP 36.5; O2SAT 93; BMI 24.0
[2022-08-01 10:16] LABS: Hematocrit 40.7 % (37.0-47.0); Hemoglobin 13.4 g/dL (11.5-15.3); Mean Corpuscular HGB Conc 32.9 g/dL (30.0-36.0); Mean Corpuscular Hemoglobin 29.5 pg (28.0-34.0); Mean Corpuscular Volume 89.6 fl (81-99); Mean Platelet Volume 8.9 fL (7.4-10.4); Platelet Count 172 10^3/cmm (130-400); Red Blood Count 4.54 10^6/uL (4.1-5.3); Red Cell Distribution Width 13.2 % (12.1-15.1)
[2022-08-01 10:33] LABS: Alanine Aminotransferase 13 U/L (0-33); Albumin Level 4.1 g/dL (3.5-5.2); Alkaline Phosphatase 83 U/L (35-105); Anion Gap 13.3 (5-19); Aspartate Amino Transferase 16 U/L (0-32); Blood Urea Nitrogen 15 mg/dL (8-23); Calcium 8.5 mg/dL (8.5-10.5); Carbon Dioxide 24 mmol/L (22-29); Chloride 105 mmol/L (98-107); Creatinine Clr Calc Pharmacy 49.6857; Globulin 2.3 g/dL (1.3-4.6); Glucose 184 mg/dL (65-115); Osmolality Calculated 292 mOsm/kg (285-295); Potassium 4.3 mmol/L (3.5-5.1); Sodium 138 mmol/L (136-145); Total Bilirubin 0.4 mg/dL (0.15-1.2); Total Protein 6.4 g/dL (6.6-8.7)
[2022-08-01 10:37] LABS: Slide Review Slide Review Perform; White Blood Count 37.5 10^3/uL (4.0-10.0)
[2022-08-01 10:40] LABS: Absolute Eosinophils 0.3 10^3/cmm (0.0-0.7); Absolute Segmented Neutrophil 6.4 10/cmm (1.6-7.1); Band Neutrophils Absolute 0.8 10^3/cmm (0.0-1.2); Eosinophils 1 %; Lymphocytes 74 %; Segmented Neutrophils 17 %; Total Cells Counted 100 (0-100)
[2022-08-01 10:41] LABS: Anisocytosis Trace; Smudge Cells Trace
[2022-08-01 10:42] LABS: Absolute Neutrophil 7.1 10^3/cmm (1.4-6.5); Platelet Estimate Normal (Normal)
--- NOTE | 2022-08-01 10:45 | PC.NURSE ---
Assisted pt to bathroom, urine sample obtained and sent to lab
[2022-08-01 11:15] LABS: Add Urine Microscopic? YES; Bilirubin Urine Neg (Negative); Blood Urine 3+ (Negative); Glucose Urine UA Trace (Normal); Ketones Urine Negative (Negative); Leukocyte Esterase Urine Negative (Negative); Nitrate Urine Negative (Negative); Protein Urine Neg (Negative); Urine Appearance Clear (CLEAR); Urine Color Yellow (Yellow); Urobilinogen Urine Norm (Negative); pH Urine 5 (5-7)
[2022-08-01 11:16] LABS: Add Urine Culture? No; Bacteria Urine TRACE /hpf; RBC Urine 0-4 /hpf (0-2); WBC Urine 0-4 /hpf (0-5)
--- NOTE | 2022-08-01 12:02 | ED_ITS ---
HPI - Female Genitourinary General: Chief complaint: Urogenital-Female Stated complaint: Abd pain and lower back Time Seen by Provider: 08/01/22 12:02 Source: patient Mode of arrival: ambulatory History of Present Illness: 82-year-old female presents emergency room complaining of severe left flank pain and abdominal pain. She has difficulty with urination. She denies any gross hematuria she also had some constipation as a known history of chronic lymphocytic leukemia. Patient awake alert oriented no fever at this time. Onset (ago): hour(s) Location of symptoms: LLQ Severity: severe Female Urogenital Radiation: Suprapubic Quality of pain: sharp Consistency: constant Urinary symptoms: Difficulty Urinating Exacerbating factors: none Relieving factors: none Associated symptoms: Deny abdominal pain, short of breath, fevers/chills, headache(s), nausea, rash, seizures, syncope or weakness Review of Systems Const: Denies: fever(s), chills, body aches, change in appetite, fatigue or malaise ENMT: Denies: throat pain, ear or mastoid pain, nasal discharge or nasal congestion Card: Denies: chest pain, palpitations, irregular heart rhythm or syncope Resp: Denies: dyspnea, productive cough or non-productive cough GI: Denies: abdominal pain or nausea : Denies: dysuria, urinary frequency, urinary urgency or hematuria Skin/Breast: Denies: rash or pruritus Neuro: Denies: headache(s) PFS ED PFSH: Medical History CLL (chronic lymphocytic leukemia) COPD (chronic obstructive pulmonary disease) Depression with anxiety Diabetes mellitus with hyperglycemia, with long-term current use of insulin Environmental and seasonal allergies Essential hypertension, benign Hyperlipidemia Hypothyroidism Myasthenia gravis Neuropathy Pneumonia UTI (urinary tract infection) Vitamin B 12 deficiency Vitamin D deficiency Surgical History H/O brain surgery Craniotomy x 4 for meningioma H/O esophagogastroduodenoscopy (11/17/21) 2013 H/O reduction of closed fracture left wrist 10/23/2015 H/O thyroidectomy Total thyroidectomy followed by radioactive iodine ablation for thyroid cancer History of appendectomy History of colonoscopy with polypectomy (05/11/22) History of hysterectomy with bilateral oophorectomy For cervical cancer Hx of cholecystectomy Pacemaker 04/05/2019 Family History Mother , AT 92 Anesthesia complication CAD (coronary artery disease) Cancer Dementia Stroke Brother CAD (coronary artery disease) Cancer Suicide Sister CAD (coronary artery disease) Suicide Grandmother Cancer Dementia Stroke Family/Other Cancer Dementia Stroke Brother Suicide Brother Suicide Father , IN HIS 60'S Alcoholic Liver disease Denies family history of Diabetes Clotting disorder Chronic kidney disease (CKD) Bleeding disorder Lung disease Social History Smoking and tobacco status: former smoker Second hand smoke exposure: No Smoking risk assessment/counseling performed?: No Alcohol intake: unknown Desire information about alcohol rehabilitation?: No Counseling given: No Desire information about substance/drug rehabilitation?: No Counseling given: No Adopted: No Caregiver/support person: Yes Lives independently: No Household members: family Housing: House Marital status: / Number of children: 2 service: No Current occupational status: retired Current occupational exposures/hazards: No History of recent travel: No Physical Exam Const: COMMON NORMALS: no acute distress GENERAL APPEARANCE: cooperative and comfortable ORIENTATION/CONSCIOUSNESS: Yes awake, Yes oriented to person, Yes oriented to place and Yes oriented to time HENMT: COMMON NORMALS: normocephalic, atraumatic and hearing grossly normal bilaterally HEAD & SCALP: normocephalic and atraumatic Resp: COMMON NORMALS: normal respiratory effort, No retractions, No use of accessory muscles and clear to auscultation bilaterally AUSCULTATION: clear to auscultation bilaterally Cardio: COMMON NORMALS: regular rate, regular rhythm and No murmurs present (Cardio) RATE: regular rate RHYTHM: regular rhythm GI: COMMON NORMALS: Soft to palpation and No hepatosplenomegaly present AUSCULTATION: Yes normoactive bowel sounds PALPATION: Yes Soft to palpation, No Tenderness to palpation present (GI), No Guarding due to palpation present (GI) and Yes No hepatosplenomegaly present : COMMON NORMALS: Yes no CVA tenderness BLADDER/KIDNEY EXAM: Yes no CVA tenderness Back/Pelvis: COMMON NORMALS: no CVA tenderness Extremity: COMMON NORMALS: normal to inspection, capillary refill normal, no clubbing, cyanosis or edema, no calf tenderness and no pedal edema Neuro: SENSORIUM/ORIENTATION: Yes oriented to person, Yes oriented to place and Yes oriented to time Skin: COMMON NORMALS: no rashes or lesions noted GENERAL SKIN EXAM: no rashes or lesions noted Course Vital Signs: Vital signs: Vital Signs Temperature 97.7 F 08/01/22 09:43 Pulse Rate 75 08/01/22 09:43 Respiratory Rate 15 08/01/22 09:43 Blood Pressure 147/94 08/01/22 09:43 Pulse Oximetry 93 08/01/22 09:43 Oxygen Delivery Me thod 08/01/22 09:43 MDM - Female Medical Decision Making CT shows left nephrolithiasis 3 mm. We will strain urine and start tamsulosin 1 ondansetron hydrocodone. Follow-up with urology. No signs of infection. Pain is controlled at this time. Medical Records I reviewed the patient's medical records. Lab Data I reviewed the patient's lab results. 08/01/22 10:09 08/01/22 10:09 Radiology Impressions Abdomen/Pelvis CT 08/01/22 12:10 IMPRESSION: 1. Obstructing 4.8 mm LEFT UVJ calculus with moderate LEFT hydronephrosis and ureterectasis. Inflammatory stranding and edema about the LEFT kidney. 2. No other significant changes compared to previous. 3. Prior cholecystectomy. 4. 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 Laboratory Results WBC 37.5 10^3/uL (4.0-10.0) H* 08/01/22 10:09 RBC 4.54 10^6/uL (4.1-5.3) 08/01/22 10:09 Hgb 13.4 g/dL (11.5-15.3) 08/01/22 10:09 Hct 40.7 % (37.0-47.0) 08/01/22 10:09 MCV 89.6 fl (81-99) 08/01/22 10:09 MCH 29.5 pg (28.0-34.0) 08/01/22 10:09 MCHC 32.9 g/dL (30.0-36.0) 08/01/22 10:09 RDW 13.2 % (12.1-15.1) 08/01/22 10:09 Plt Count 172 10^3/cmm (130-400) 08/01/22 10:09 MPV 8.9 fL (7.4-10.4) 08/01/22 10:09 Lymph % (Auto) Not Reportable 08/01/22 10:09 Jones % (Auto) Not Reportable 08/01/22 10:09 Lymph # (Auto) Not Reportable 08/01/22 10:09 Jones # (Auto) Not Reportable 08/01/22 10:09 Total Counted 100 (0-100) 08/01/22 10:09 Atypical Lymphs % 6.0 % (0-5) H 08/01/22 10:09 Absolute Neutrophils 7.1 10^3/cmm (1.4-6.5) H 08/01/22 10:09 Segmented Neutrophils 17 % 08/01/22 10:09 Abs Segm Neuts (Man) 6.4 10/cmm (1.6-7.1) 08/01/22 10:09 Band Neutrophils 2.0 % 08/01/22 10:09 Abs Band Neuts (Man) 0.8 10^3/cmm (0.0-1.2) 08/01/22 10:09 Absolute Lymphocytes 30.0 10^3/cmm (1.2-3.4) H 08/01/22 10:09 Lymphocytes (Manual) 74 % 08/01/22 10:09 Monocytes (Manual) 0.0 % 08/01/22 10:09 Absolute Monocytes 0.0 10^3/cmm (0.1-0.6) L 08/01/22 10:09 Eosinophils (Manual) 1 % 08/01/22 10:09 Absolute Eosinophils 0.3 10^3/cmm (0.0-0.7) 08/01/22 10:09 Basophils (Manual) 0.0 % 08/01/22 10:09 Absolute Basophils 0.0 10^3/cmm (0.0-0.2) 08/01/22 10:09 Smudge Cells Trace 08/01/22 10:09 Platelet Estimate Normal (Normal) 08/01/22 10:09 Anisocytosis Trace 08/01/22 10:09 Sodium 138 mmol/L (136-145) 08/01/22 10:09 Potassium 4.3 mmol/L (3.5-5.1) 08/01/22 10:09 Chloride 105 mmol/L (98-107) 08/01/22 10:09 Carbon Dioxide 24 mmol/L (22-29) 08/01/22 10:09 Anion Gap 13.3 (5-19) 08/01/22 10:09 BUN 15 mg/dL (8-23) 08/01/22 10:09 Creatinine 0.6 mg/dL (0.5-0.9) 08/01/22 10:09 GFR Calculation Not Reportable 08/01/22 10:09 Glucose 184 mg/dL (65-115) H 08/01/22 10:09 Calculated Osmolality 292 mOsm/kg (285-295) 08/01/22 10:09 Calcium 8.5 mg/dL (8.5-10.5) 08/01/22 10:09 Total Bilirubin 0.4 mg/dL (0.15-1.2) 08/01/22 10:09 AST 16 U/L (0-32) 08/01/22 10:09 ALT 13 U/L (0-33) 08/01/22 10:09 Alkaline Phosphatase 83 U/L (35-105) 08/01/22 10:09 Total Protein 6.4 g/dL (6.6-8.7) L 08/01/22 10:09 Albumin 4.1 g/dL (3.5-5.2) 08/01/22 10:09 Globulin 2.3 g/dL (1.3-4.6) 08/01/22 10:09 Urine Color Yellow (Yellow) 08/01/22 10:51 Urine Appearance Clear (CLEAR) 08/01/22 10:51 Urine pH 5 (5-7) 08/01/22 10:51 Ur Specific [place] 1.020 (1.005-1.030) 08/01/22 10:51 Urine Protein Neg (Negative) 08/01/22 10:51 Urine Glucose (UA) Trace (Normal) H 08/01/22 10:51 Urine Ketones Negative (Negative) 08/01/22 10:51 Urine Blood 3+ (Negative) H 08/01/22 10:51 Urine Nitrate Negative (Negative) 08/01/22 10:51 Urine Bilirubin Neg (Negative) 08/01/22 10:51 Urine Urobilinogen Norm mg/dL (Negative) 08/01/22 10:51 Ur Leukocyte Esterase Negative (Negative) 08/01/22 10:51 Urine RBC 0-4 /hpf (0-2) H 08/01/22 10:51 Urine WBC 0-4 /hpf (0-5) H 08/01/22 10:51 Ur Squamous Epith Cells 5-10 /hpf (0-5) H 08/01/22 10:51 Calcium Oxalate Crystal 5-10 /hpf H 08/01/22 10:51 Amorphous Sediment Not Reportable 08/01/22 10:51 Urine Bacteria Trace /hpf (NONE) 08/01/22 10:51 Discharge Plan Discharge Patient Disposition: Home Clinical Impression: Left nephrolithiasis Condition: Stable Prescriptions: New hydrocodone-acetaminophen 5-325 mg tablet 1 tab PO Q6H PRN (Reason: pain) Qty: 20 0RF tamsulosin 0.4 mg capsule 0.4 mg PO DAILY Qty: 30 0RF ondansetron HCl 4 mg tablet 4 mg PO Q6H PRN (Reason: nausea and vomiting) Qty: 20 0RF No Action (DME) lancets [TRUEplus Lancets] 33 gauge misc See Rx Instructions .Route Qty: 100 5RF Rx Instructions: use one 3 times day (DME) Power chair repair See Rx Instructions .Route .MEDSUPPLY Qty: 1 0RF Rx Instructions: Repair power chair and maintenance (DME) FreeStyle [place] 2 [place] Misc See Rx Instructions .ROUTE .MEDSUPPLY Qty: 1 0RF Rx Instructions: As directed lactulose 10 gram packet 20 g PO BID PRN omeprazole 40 mg capsule,delayed release(DR/EC) 40 mg PO DAILY PRN medical marijuana capsule PO Toujeo Max U-300 SoloStar 300 unit/mL (3 mL) insulin pen See Rx Instructions SUBCUT DAILY Qty: 12 1RF Rx Instructions: up to 80U subcutaneously daily; albuterol sulfate 2.5 mg /3 mL (0.083 %) solution for nebulization 2.5 mg inhalation Q4H PRN (Reason: shortness of breath or wheezing) Qty: 75 5RF albuterol sulfate [Proventil HFA] 90 mcg/actuation HFA aerosol inhaler 2 puff INHALATION QID PRN (Reason: Shortness Of Breath) Qty: 6.7 1RF budesonide [Pulmicort] 0.5 mg/2 mL suspension for nebulization 0.5 mg inhalation BID Qty: 180 1RF furosemide 20 mg tablet 20 mg PO BID PRN (Reason: edema) Qty: 180 1RF insulin aspart U-100 [Novolog FlexPen U-100 Insulin] 100 unit/mL (3 mL) insulin pen See Rx Instructions SUBCUT TID Qty: 15 2RF Rx Instructions: 110-129=3U 130-150=6U 151-200=9U 201-250=12U 251-300=15U 301-350=18U 351- 400=21U >400=24U SUBCUT three times daily; levothyroxine 88 mcg tablet 88 mcg PO DAILY Qty: 90 1RF simvastatin 20 mg tablet 20 mg PO BEDTIME Qty: 90 0RF tolterodine [Detrol] 2 mg tablet 2 mg PO DAILY Qty: 90 0RF aspirin 81 mg tablet,delayed release (DR/EC) 81 mg PO DAILY Qty: 30 0RF (DME) FreeStyle William 2 Sensor Kit See Rx Instructions .ROUTE .MEDSUPPLY Qty: 2 11RF Rx Instructions: change every 14 days Airborne Gummy 250-11.66 mg Tablet,Chewable 1 tab PO DAILY fluticasone propionate [Flonase Allergy Relief] 50 mcg/actuation spray,suspension 2 spray INTRANASAL DAILY PRN (Reason: Allergy Symptoms) Discharge Orders: Discharge ED (Routine); Ordered 08/01/22 Ordered By: Israel Garza Referrals: Adam Anguiano, [employer] [Primary Care Provider] - Discharge Diet: Usual diet Discharge Activity: Increase activity as tolerated Patient Instructions: Opioid Safety, Pain Management Activity Restrictions/Additional Instructions: You were seen today for a left kidney stone that is at the level of the bladder. It is 3 mm in size and would expect for it to pass spontaneously. For pain you were given hydrocodone for nausea ondansetron. You were also given tamsulosin which will help the stone pass sooner. There was no sign of a bladder infection. Strain your urine to collect the stone Case management make arrangements for you to follow-up with Dr. Arzola. Coding Level of Care Code ED Excel Specialist for Kina Jackson
--- NOTE | 2022-08-01 12:10 | CT_ITS ---
WS: [id number] CT ABDOMEN PELVIS TECHNIQUE: Contrast-enhanced CT of the abdomen and pelvis with coronal and sagittal reformatted image s. CLINICAL INFORMATION: abd pain COMPARISON: None. DLP: 578.[address] scans at [facility] use at least one of these dose optimization techniques: automated e xposure control; mA and/or kV adjustment per patient size (includes targeted exams where dose is matc hed to clinical indication); or iterative reconstruction. FINDINGS: Moderate LEFT hydronephrosis and ureterectasis. LEFT ureter is dilated down to the UVJ. 4.8 mm obstru cting LEFT UVJ calculus. Inflammatory stranding and edema about the LEFT kidney. No obstructing RIGHT renal or ureteral calculi. Bilateral renal cysts. Diffuse fatty infiltration liver. Cholecystectomy clips. Normal spleen. Noncalcified nodule RIGHT low er lobe medially measuring 6 mm. This is unchanged from previous February 08, 2022. Subsegmental atelec tasis in the RIGHT middle lobe. Normal portal vein and splenic vein. Normal GE junction. A few promin ent lymph nodes in the upper abdomen unchanged likely reactive. Prominent lymph nodes along the mesen teric root with mesenteric induration unchanged. Grade 1 [address] L[address] on L5. CT/CT abdomen pelvis w con* [id number] IMPRESSION: 1. Obstructing 4.8 mm LEFT UVJ calculus with moderate LEFT hydronephrosis and ureterectasis. Inflammatory stranding and edema about the LEFT kidney. 2. No other significant changes compared to previous. 3. Prior cholecystectomy. 4. Prominent lymph nodes with induration central mesentery can be seen with sc lerosing mesenteritis unchanged from previous Notified Israel Garza DO at 08/01/2022 1:37 PM.
[2022-08-01] MEDS: morphine 4 mg/mL SDV 1 mL IVP (12:31)
[2022-08-01] MEDS: ondansetron 2 mg/ML SDV 2 mL 4 MG IVP (12:31)
[2022-08-01] MEDS: iohexol 350 mg/mL 500 mL Btl (per mL) IV (13:19)
--- NOTE | 2022-08-01 13:23 | PC.NURSE ---
NO REPORT ASSUMED CARE.
[2022-08-01] MEDS: sodium chloride 0.9% 1,000 ML 999 ML IV (13:38)
--- NOTE | 2022-08-01 13:41 | PC.NURSE ---
LEFT FOREARM IV STARTED IN CT.
[2022-08-01 14:00] VITALS: BP 162/79; PULSE 67; O2SAT 91
[2022-08-01 14:30] VITALS: BP 167/79; PULSE 61; O2SAT 92
--- NOTE | 2022-08-01 14:55 | DCPLANNER ---
Addendum entered by Manju Cerrato 08/04/22 12:45: Patient had a follow up appointment scheduled with urology - patient did attend appointment. Original Note: numerical analysis group manager had message to schedule a follow up appointment for patient with urology. numerical analysis group manager sent patients information to the front office staff at urology. Patients information will be printed and reviewed. Clinic will call patient with appointment information.
== END 2022-08-01 15:05 | disposition home or self-care (01) ==
PROVIDERS: Physician Assistant; Emergency Provider Family Medicine; PCP Nurse Practitioner
DX: N13.2 Hydronephrosis with renal and ureteral calculous obstruction (principal); Z79.82 Long term (current) use of aspirin; Z79.4 Long term (current) use of insulin; Z87.891 Personal history of nicotine dependence; J44.9 Chronic obstructive pulmonary disease, unspecified; Z85.6 Personal history of leukemia; E11.9 Type 2 diabetes mellitus without complications; I10 Essential (primary) hypertension; E78.5 Hyperlipidemia, unspecified
CPT/HCPCS: 36415; 74177; 80053; 81001; 85007; 85025; 96374; 96375; 99285; J2270; J2405; J7030; Q9967

== ENCOUNTER 2022-08-02 06:41 | Outpatient (CLI) | payer MEDICARE, OTHER, SELFPAY ==
--- NOTE | 2022-08-02 07:10 | XR_ITS ---
WS: [id number] Exam: XR [id number] Date/Time of Exam: 08/02/2022 7:11 AM Reason For Exam: STONE No bowel obstruction or free air. Calcifications superimpose the left kidney and may represent renal stones. Multiple nonspecific pelvic calcifications noted. No sign of organ enlargement. Signs of prio r cholecystectomy. Bony structures are intact. XR/XR KUB [id number] IMPRESSION: 1. No acute abdominal process. 2. Calcification superimpose left kidney and may represent renal calculi.
== END 2022-08-02 06:42 | disposition home or self-care (01) ==
LOC: RAD 06:43
PROVIDERS: PCP Nurse Practitioner; Visit Provider Urology
DX: N20.9 Urinary calculus, unspecified; N20.2 Calculus of kidney with calculus of ureter
CPT/HCPCS: 74018; 99214

== ENCOUNTER 2022-08-15 14:02 | Emergency (ER) | payer MEDICARE, OTHER, SELFPAY ==
[2022-08-15] VITALS (46 sets, daily range): BP systolic 80–155; BP diastolic 54–128; PULSE 62–97; RESP 15–32; TEMP 36.8; O2SAT 89–100; BMI 22.6
--- NOTE | 2022-08-15 14:17 | ED_ITS ---
HPI - SOB/Dyspnea General: Chief Complaint: Shortness of Breath/Dyspnea Stated Complaint: cough, dsypnea Time Seen by Provider: 08/15/22 14:17 History of Present Illness: HPI Narrative: Ms. Augustine is an 82-year-old lady with history of diabetes, COPD, pacemaker, stroke, CLL, thyroid disorder presenting to the emergency department for generalized illness. She reports being sick for approximately 3 weeks initially thinking that she could have a respiratory virus while at the hospital for kidney stone. Since that time however she has had worsening symptoms including shortness of breath, cough, diarrhea, generalized malaise, fevers and chills. Density symptoms is moderate to severe. Course has worsened. No other specific changes in health, exacerbating, or alleviating factors identified. Onset (ago): week(s) Context: recent illness Timing: progressively worsening Severity: moderate Exacerbating factors: exertion Relieving factors: nothing Known history of: COPD and diabetes Associated symptoms: Reports cough, fever(s), lightheadedness, myalgias, nausea and other Review of Systems General: Reports: 10 or more systems reviewed and unremarkable except in HPI and below Const: Reports: fever(s) Card: Reports: lightheadedness GI: Reports: nausea PFSH ED PFSH: Medical History CLL (chronic lymphocytic leukemia) COPD (chronic obstructive pulmonary disease) Depression with anxiety Diabetes mellitus with hyperglycemia, with long-term current use of insulin Environmental and seasonal allergies Essential hypertension, benign Hyperlipidemia Hypothyroidism Left ureteral calculus Myasthenia gravis Neuropathy Pneumonia Urolithiasis UTI (urinary tract infection) Vitamin B 12 deficiency Vitamin D deficiency Surgical History H/O brain surgery Craniotomy x 4 for meningioma H/O esophagogastroduodenoscopy (11/17/21) 2013 H/O reduction of closed fracture left wrist 10/23/2015 H/O thyroidectomy Total thyroidectomy followed by radioactive iodine ablation for thyroid cancer History of appendectomy History of colonoscopy with polypectomy (11/17/21) History of hysterectomy with bilateral oophorectomy For cervical cancer Hx of cholecystectomy Pacemaker 04/05/2019 Family History Mother , AT 92 Anesthesia complication CAD (coronary artery disease) Cancer Dementia Stroke Brother CAD (coronary artery disease) Cancer Suicide Sister CAD (coronary artery disease) Suicide Grandmother Cancer Dementia Stroke Family/Other Cancer Dementia Stroke Brother Suicide Brother Suicide Father , IN HIS 60'S Alcoholic Liver disease Denies family history of Diabetes Clotting disorder Chronic kidney disease (CKD) Bleeding disorder Lung disease Social History Smoking and tobacco status: former smoker Second hand smoke exposure: No Smoking risk assessment/counseling performed?: No Alcohol intake: unknown Desire information about alcohol rehabilitation?: No Counseling given: No Desire information about substance/drug rehabilitation?: No Counseling given: No Adopted: No Caregiver/support person: Yes Lives independently: No Household members: family Housing: House Marital status: / Number of children: 2 service: No Current occupational status: retired Current occupational exposures/hazards: No History of recent travel: No Physical Exam Const: COMMON NORMALS: alert GENERAL APPEARANCE: cooperative and well developed HENMT: COMMON NORMALS: normocephalic and atraumatic HEAD & SCALP: normocephalic and atraumatic Eye: COMMON NORMALS: conjunctivae normal CONJUNCTIVA: Yes conjunctivae normal SCLERA: sclerae normal Neck/C-Spine: COMMON NORMALS: supple GENERAL: Yes trachea midline Resp: COMMON NORMALS: clear to auscultation bilaterally EFFORT & INSPECTION: Yes able to speak in complete sentences AUSCULTATION: clear to auscultation bilaterally Cardio: COMMON NORMALS: regular rate and regular rhythm RATE: regular rate RHYTHM: regular rhythm GI: COMMON NORMALS: Soft to palpation PALPATION: Yes Soft to palpation, Yes Tenderness to palpation present (GI), No Guarding due to palpation present (GI) and No Rigid due to palpation Extremity: GENERAL: Yes normal exam except as noted and No edema Neuro: COMMON NORMALS: moves all extremities SENSORIUM/ORIENTATION: Yes alert and No Orientation impaired Psych: COMMON NORMALS: mental status grossly normal and Normal thought process present THOUGHT PROCESS: Normal thought process present Course Vital Signs: Vital signs: Vital Signs Temperature 98.2 F 08/15/22 14:22 Pulse Rate 70 08/15/22 16:31 Respiratory Rate 18 08/15/22 16:31 Blood Pressure 146/54 08/15/22 17:46 Pulse Oximetry 93 08/15/22 17:30 Oxygen Delivery Me thod 08/15/22 16:31 MDM - SOB/Dyspnea Medical Decision Making 82-year-old lady presenting with respiratory symptoms. Patient is nontoxic on exam, exam as above. A broad differential considered and testing ordered as appropriate based on clinical likelihood and morbidity/mortality associated conditions. EKG demonstrates sinus rhythm with borderline left axis deviation, normal intervals, nonspecific ST segment abnormalities, no STEMI. Labs notable for leukocytosis that this is improved from prior, otherwise similar hematologic panel. Metabolic panel without acute derangement, similar to prior. Negative initial troponin with greater than 6 hours of symptoms. D- dimer is mildly elevated. Urinalysis with some evidence of urinary tract infection. COVID PCR positive. Chest x-ray demonstrates COPD, similar to prior, no lobar consolidation or pneumothorax. Given elevated D-dimer as the patient cannot be ruled out by PERC criteria CT imaging obtained with no evidence of PE, on the ground glass opacity and mild lymphadenopathy. Incidental findings discussed with patient. Patient improved with RT treatment, steroids, IV fluids. Most likely etiology of symptoms is a factorial including COVID-19 induced exacerbation of underlying lung disease and urinary tract infection. Given overall appearance and clinical improvement patient is reasonable for outpatient therapy. The results of ED evaluation were discussed with the patient including prescriptions and/or symptomatic cares (if applicable) including appropriate and responsible use, followup plan, and return precautions. The patient verbalized understanding and felt safe for discharge. Medical Records I reviewed the patient's medical records. Lab Data I reviewed the patient's lab results. 08/15/22 14:45 08/15/22 14:45 Labs/Radiology: Radiology Impressions Chest X-Ray 08/15/22 14:21 IMPRESSION: Likely COPD with suggestion of minimal scarring and minimal benign healed granulomatous disease, without acute change with prior exam. Left-sided pacemaker. Chest/Abdomen/Pelvis CT 08/15/22 15:14 IMPRESSION: 1. No CT findings to indicate pulmonary embolus 2. Chronic changes when correlated with previous exam with mild chronic scarring or fibrosis and with mild chronic herniation of lung parenchyma into the left posterolateral aspect of the thorax in the lower left lung, with associated vascular crowding and/or atelectasis at this level. 3. Very small amount of peripheral focal areas of ground-glass opacity within the lower lungs and consider minimal infiltrate or pneumonitis. 4. Mild adenopathy within the mediastinum and hilar region, particularly prominent in the subcarinal mediastinum with a 3 cm lymph node. This is more prominent than prior exam. Mildly prominent right axillary lymph node also noted. IMPRESSION: 1. Previous cholecystectomy and prior hysterectomy, as well as appendectomy. 2. Nonobstructing renal calculi and findings suggestive of small renal cortical cysts without findings of ureteral calculus or obstructive uropathy with today's exam. 3. Mild colonic diverticulosis. 4. Vascular calcification along with suggestion of calcified nodes within the pelvis. 5. Laboratory Results WBC 23.0 10^3/uL (4.0-10.0) H 08/15/22 14:45 RBC 4.63 10^6/uL (4.1-5.3) 08/15/22 14:45 Hgb 13.5 g/dL (11.5-15.3) 08/15/22 14:45 Hct 41.2 % (37.0-47.0) 08/15/22 14:45 MCV 89.0 fl (81-99) 08/15/22 14:45 MCH 29.2 pg (28.0-34.0) 08/15/22 14:45 MCHC 32.8 g/dL (30.0-36.0) 08/15/22 14:45 RDW 13.9 % (12.1-15.1) 08/15/22 14:45 Plt Count 165 10^3/cmm (130-400) 08/15/22 14:45 MPV 9.1 fL (7.4-10.4) 08/15/22 14:45 Neut % (Auto) 17.9 % 08/15/22 14:45 Lymph % (Auto) 71.2 % 08/15/22 14:45 [place] % (Auto) 10.2 % 08/15/22 14:45 Eos % (Auto) 0.3 % 08/15/22 14:45 Baso % (Auto) 0.2 % 08/15/22 14:45 Neut # (Auto) 4.10 10^3/uL (1.8-7.7) 08/15/22 14:45 Lymph # (Auto) 16.4 10^3/uL (0.8-4.8) H 08/15/22 14:45 [place] # (Auto) 2.4 10^3/uL (0.2-0.9) H 08/15/22 14:45 Eos # (Auto) 0.1 10^3/uL (0.0-0.8) 08/15/22 14:45 Baso # (Auto) 0.1 10^3/uL (0.0-0.1) 08/15/22 14:45 Nucleated RBC % (auto) 0 % 08/15/22 14:45 Nucleated RBCs # 0.0 /100WBC 08/15/22 14:45 D-Dimer 0.88 ug/mIFEU (0-0.59) H 08/15/22 14:39 Sodium 137 mmol/L (136-145) 08/15/22 14:45 Potassium 3.9 mmol/L (3.5-5.1) 08/15/22 14:45 Chloride 99 mmol/L (98-107) 08/15/22 14:45 Carbon Dioxide 23 mmol/L (22-29) 08/15/22 14:45 Anion Gap 18.9 (5-19) 08/15/22 14:45 BUN 10 mg/dL (8-23) 08/15/22 14:45 Creatinine 0.7 mg/dL (0.5-0.9) 08/15/22 14:45 GFR Calculation Not Reportable 08/15/22 14:45 Glucose 79 mg/dL (65-115) 08/15/22 14:45 Calculated Osmolality 282 mOsm/kg (285-295) L 08/15/22 14:45 Calcium 8.8 mg/dL (8.5-10.5) 08/15/22 14:45 Magnesium 2.0 mg/dL (1.7-2.3) 08/15/22 14:45 Total Bilirubin 0.5 mg/dL (0.15-1.2) 08/15/22 14:45 AST 23 U/L (0-32) 08/15/22 14:45 ALT 14 U/L (0-33) 08/15/22 14:45 Alkaline Phosphatase 77 U/L (35-105) 08/15/22 14:45 Troponin T Baseline 8 ng/L (0-10) 08/15/22 14:45 C-Reactive Protein 12.8 mg/L (0.0-4.9) H 08/15/22 14:45 NT-Pro-B Natriuret Pep 112 pg/mL (0-450) 08/15/22 14:45 Total Protein 7.1 g/dL (6.6-8.7) 08/15/22 14:45 Albumin 4.5 g/dL (3.5-5.2) 08/15/22 14:45 Globulin 2.6 g/dL (1.3-4.6) 08/15/22 14:45 Procalcitonin 0.06 ng/mL (0-0.5) 08/15/22 14:45 TSH 3.81 uIU/mL (0.27-4.20) 08/15/22 14:45 Urine Color Dark yellow (Yellow) 08/15/22 15:49 Urine Appearance Cloudy (CLEAR) A 08/15/22 15:49 Urine pH 8 (5-7) H 08/15/22 15:49 Ur Specific [place] 1.010 (1.005-1.030) 08/15/22 15:49 Urine Protein Neg (Negative) 08/15/22 15:49 Urine Glucose (UA) Norm (Normal) 08/15/22 15:49 Urine Ketones 2+ (Negative) H 08/15/22 15:49 Urine Blood 3+ (Negative) H 08/15/22 15:49 Urine Nitrate Positive (Negative) H 08/15/22 15:49 Urine Bilirubin Neg (Negative) 08/15/22 15:49 Prot Sulfosalicylic Acd Negative (Negative) 08/15/22 15:49 Urine Urobilinogen Norm mg/dL (Negative) 08/15/22 15:49 Ur Leukocyte Esterase 2+ (Negative) H 08/15/22 15:49 Urine RBC 5-10 /hpf (0-2) H 08/15/22 15:49 Urine WBC 25-40 /hpf (0-5) H 08/15/22 15:49 Ur Squamous Epith Cells 0-4 /hpf (0-5) H 08/15/22 15:49 Amorphous Sediment Not Reportable 08/15/22 15:49 Urine Bacteria 4+ /hpf (NONE) H 08/15/22 15:49 Coronavirus 229E (PCR) Not detected (NOT DETECT) 08/15/22 14:39 SARS-CoV-2 (PCR) Detected (NOT DETECT) A 08/15/22 14:39 Discharge Plan Discharge Patient Disposition: Home Clinical Impression: Acute exacerbation of chronic obstructive airways disease, COVID-19, Acute UTI Condition: Stable Prescriptions: No Action (DME) lancets [TRUEplus Lancets] 33 gauge misc See Rx Instructions .Route Qty: 100 5RF Rx Instructions: use one 3 times day (DME) Power chair repair See Rx Instructions .Route .MEDSUPPLY Qty: 1 0RF Rx Instructions: Repair power chair and maintenance (DME) FreeStyle William 2 Noti Misc See Rx Instructions .ROUTE .MEDSUPPLY Qty: 1 0RF Rx Instructions: As directed lactulose 10 gram packet 20 g PO BID PRN (Reason: Constipation) omeprazole 40 mg capsule,delayed release(DR/EC) 40 mg PO DAILY PRN (Reason: Acid Reflux) medical marijuana capsule See Rx Instructions .ROUTE .COMPLEX Rx Instructions: DIRECTED Toujeo Max U-300 SoloStar 300 unit/mL (3 mL) insulin pen See Rx Instructions SUBCUT DAILY Qty: 12 1RF Rx Instructions: up to 80U subcutaneously daily; albuterol sulfate 2.5 mg /3 mL (0.083 %) solution for nebulization 2.5 mg inhalation Q4H PRN (Reason: shortness of breath or wheezing) Qty: 75 5RF albuterol sulfate [Proventil HFA] 90 mcg/actuation HFA aerosol inhaler 2 puff INHALATION QID PRN (Reason: Shortness Of Breath) Qty: 6.7 1RF budesonide [Pulmicort] 0.5 mg/2 mL suspension for nebulization 0.5 mg inhalation BID Qty: 180 1RF furosemide 20 mg tablet 20 mg PO BID PRN (Reason: edema) Qty: 180 1RF insulin aspart U-100 [Novolog FlexPen U-100 Insulin] 100 unit/mL (3 mL) insulin pen See Rx Instructions SUBCUT TID Qty: 15 2RF Rx Instructions: 110-129=3U 130-150=6U 151-200=9U 201-250=12U 251-300=15U 301-350=18U 351- 400=21U >400=24U SUBCUT three times daily; levothyroxine 88 mcg tablet 88 mcg PO DAILY Qty: 90 1RF simvastatin 20 mg tablet 20 mg PO BEDTIME Qty: 90 0RF tolterodine [Detrol] 2 mg tablet 2 mg PO DAILY Qty: 90 0RF aspirin 81 mg tablet,delayed release (DR/EC) 81 mg PO DAILY Qty: 30 0RF (DME) FreeStyle William 2 Sensor Kit See Rx Instructions .ROUTE .MEDSUPPLY Qty: 2 11RF Rx Instructions: change every 14 days Airborne Gummy 250-11.66 mg Tablet,Chewable 1 tab PO DAILY hydrocodone-acetaminophen 5-325 mg tablet 1 tab PO Q6H PRN (Reason: pain) Qty: 20 0RF tamsulosin 0.4 mg capsule 0.4 mg PO DAILY Qty: 30 0RF ondansetron HCl 4 mg tablet 4 mg PO Q6H PRN (Reason: nausea and vomiting) Qty: 20 0RF fluticasone propionate [Flonase Allergy Relief] 50 mcg/actuation spray,suspension 2 spray INTRANASAL DAILY PRN (Reason: Allergy Symptoms) Discharge Orders: Discharge ED (Routine); Ordered 08/15/22 Ordered By: Douglas Owens Referrals: Adam Anguiano, CORRECTIONAL SUBSTANCE ABUSE COUNSELOR-C [Primary Care Provider] - Discharge Diet: Usual diet Discharge Activity: Increase activity as tolerated Patient Instructions: Urinary Tract Infection in Women (ED), COPD (Chronic Obstructive Pulmonary Disease) (ED), COVID-19 (Coronavirus Disease 2019) (ED) Activity Restrictions/Additional Instructions: Thank you for visiting the emergency department. You were seen and evaluated for generalized illness. The most likely cause of your symptoms is multi factorial including COVID-19 with exacerbation of underlying COPD and urinary tract infection. I believe it is reasonable to try outpatient management. I will prescribe steroids and antibiotics. Please also use your albuterol metered-dose inhaler 2 puffs or 1 treatment nebulizer every 4 hours for 24 hours followed by 2 puffs or 1 treatment nebulizer every 6 hours for 24 hours followed by 2 puffs or 1 treatment nebulizer every 8 hours for 24 hours and then return to the normal schedule. You may use [id number] medications such as acetaminophen and ibuprofen for pain however please do not exceed the daily recommended dosage as listed on the packaging and please keep in mind that many namebrand medications contain the same active ingredients. Please avoid these medications if previously instructed to do so by another physician due to other underlying medical condition. Return to the emergency department for worsening symptoms or anything else that you are concerned about and feel needs emergency department evaluation. Coding Level of Care Code ED Collar Trimmer for Kina Jackson
--- NOTE | 2022-08-15 14:21 | XRR_ITS ---
PROCEDURE INFORMATION: Exam: XR Chest Exam date and time: 08/15/2022 2:45 PM Age: 82 years old Clinical indication: Shortness of breath; Additional info: Hypotension, presyncope, SOB TECHNIQUE: Imaging protocol: Radiologic exam of the chest. Views: 1 view. COMPARISON: CT chest w con* [id number] 05/16/2022 11:11 AM FINDINGS: Tubes, catheters and devices: Dual lead pacemaker on the left. Lungs: Minimal scarring, with minimal benign healed granulomatous disease when correlated with prior exam. Likely underlying COPD. No focal infiltrate or consolidation. Pleural spaces: Unremarkable. No pleural effusion. No pneumothorax. Heart/Mediastinum: Unremarkable. No cardiomegaly. Vasculature: Mild arteriosclerosis of the thoracic aorta. Bones/joints: No acute findings. XR/XR chest 1V portable [id number] IMPRESSION: Likely COPD with suggestion of minimal scarring and minimal benign healed granulomatous disease, without acute change with prior exam. Left-sided pacemaker.
--- NOTE | 2022-08-15 14:22 | ECG_ITS ---
[facility] Test Date: 2022-08-15 Pat Name: Felicitas Augustine Department: Room: Gender: Female Lead Installer: : 1940 Requested By: Douglas Owens Order Number: [id number] Karma MD: Jen Castro M.D. Measurements Intervals [place] Rate: 71 P: 154 SC: 169 QRS: -30 QRSD: 97 T: 73 QT: 386 QTc: 419 Interpretive Statements ELECTRONIC ATRIAL PACEMAKER BORDERLINE LEFT AXIS DEVIATION [QRS AXIS < -20] INCOMPLETE RIGHT BUNDLE BRANCH BLOCK [90+ ms QRS DURATION, TERMINAL R IN V1/V2, 40+ ms S IN I/aVL/V4/V5/V6] ABNORMAL RHYTHM ECG Compared to ECG 02/08/2022 22:44:41 Incomplete right bundle-branch block now present Electronically Signed On 08-15-2022 20:36:02 PATENT LITIGATION ASSOCIATE by Jen Castro M.D. [id number]
[2022-08-15 14:54] LABS: Basophils # 0.1 10^3/uL (0.0-0.1); Basophils % 0.2 %; Eosinophils # 0.1 10^3/uL (0.0-0.8); Eosinophils % 0.3 %; Hematocrit 41.2 % (37.0-47.0); Hemoglobin 13.5 g/dL (11.5-15.3); Lymphocytes # 16.4 10^3/uL (0.8-4.8); Lymphocytes % 71.2 %; Mean Corpuscular HGB Conc 32.8 g/dL (30.0-36.0); Mean Corpuscular Hemoglobin 29.2 pg (28.0-34.0); Mean Platelet Volume 9.1 fL (7.4-10.4); Monocytes # 2.4 10^3/uL (0.2-0.9); Monocytes % 10.2 %; Neutrophils % 17.9 %; Nucleated Red Blood Cells % 0 %; Platelet Count 165 10^3/cmm (130-400); Red Blood Count 4.63 10^6/uL (4.1-5.3); Red Cell Distribution Width 13.9 % (12.1-15.1)
[2022-08-15] MEDS: sodium chloride 0.9% 1,000 ML 999 ML IV (14:57)
--- NOTE | 2022-08-15 14:59 | PC.PHAR ---
PT MEDS VERIFIED USING LIST PT PROVIDED AND EXTERNAL MED LIST
[2022-08-15 15:13] LABS: D Dimer 0.88 ug/mIFEU (0-0.59)
[2022-08-15 15:13] LABS: Slide Review Slide Review Perform
--- NOTE | 2022-08-15 15:14 | CTR_ITS ---
PROCEDURE INFORMATION: Exam: CTA Chest With Contrast Exam date and time: 08/15/2022 3:56 PM Age: 82 years old Clinical indication: Other: SOB; Abdominal pain; Generalized; Shortness of breath; Sternal or substernal pain; Prior surgery; Surgery date: 6+ months; Surgery type: Gb, brain, thyroid, appy, pacemaker, polypectomy; Additional info: SOB, elevated ddimer, HX cancer, abd pain/diarrhea TECHNIQUE: Imaging protocol: Computed tomographic angiography of the chest with contrast. 3D rendering (Not supervised by radiologist): MIP and/or 3D reconstructed images were created by the technologist. Radiation optimization: All CT scans at this facility use at least one of these dose optimization techniques: automated exposure control; mA and/or kV adjustment per patient size (includes targeted exams where dose is matched to clinical indication); or iterative reconstruction. Contrast material: OMNIPAQUE 350; Contrast volume: 100 ml; Contrast route: INTRAVENOUS (IV); Other protocol: This patient has received 7 known CTs and 0 known cardiac nuclear medicine studies in the 12 months prior to the current study. COMPARISON: CT angio chest PE protcl [id number] 02/08/2022 10:10 PM RADIATION DOSE METRICS: Total DLP (mGy-cm): 944.78 FINDINGS: Pulmonary arteries: Contrast appears more dense within the superior vena cava than the pulmonary arteries with the exam. No significant hypodense filling defect is seen within the pulmonary artery or their major branches to indicate pulmonary embolus. Aorta: Arteriosclerosis of the thoracic aorta. Coronary artery calcification. Lungs: Scattered areas of chronic scarring or fibrosis when correlated with prior CT angio chest of February 08, 2022 along with small benign calcified granuloma in the upper right lung. Mild chronic herniation of lung parenchyma into the left posterolateral aspect of the thorax in the lower left lung with prior exam with component of vascular crowding and/or atelectasis. Very small amount of peripheral focal areas of ground-glass density within the lower lungs with today's exam. Pleural spaces: Unremarkable. No pneumothorax. No pleural effusion. Heart: Unremarkable. No cardiomegaly. No pericardial effusion. Lymph nodes: Mild adenopathy within the mediastinum and hilar region, with more prominent lymph node of 3 cm in the subcarinal mediastinum and approximally 2 cm lymph node in the inferior right hilum. Bones/joints: Mild degenerative changes. Soft tissues: Suggestion of mild axillary lymph node prominence on the right. PROCEDURE INFORMATION: Exam: CT Abdomen And Pelvis With Contrast Exam date and time: 08/15/2022 3:56 PM Age: 82 years old Clinical indication: Other: SOB; Abdominal pain; Generalized; Shortness of breath; Sternal or substernal pain; Prior surgery; Surgery date: 6+ months; Surgery type: Gb, brain, thyroid, appy, pacemaker, polypectomy; Additional info: SOB, elevated ddimer, HX cancer, abd pain/diarrhea TECHNIQUE: Imaging protocol: Computed tomography of the abdomen and pelvis with contrast. Radiation optimization: All CT scans at this facility use at least one of these dose optimization techniques: automated exposure control; mA and/or kV adjustment per patient size (includes targeted exams where dose is matched to clinical indication); or iterative reconstruction. Contrast material: OMNIPAQUE 350; Contrast volume: 100 ml; Contrast route: INTRAVENOUS (IV); Other protocol: This patient has received 7 known CTs and 0 known cardiac nuclear medicine studies in the 12 months prior to the current study. COMPARISON: CT abdomen pelvis w con* [id number] 08/01/2022 1:15 PM RADIATION DOSE METRICS: Total DLP (mGy-cm): 944.78 FINDINGS: Liver: No focal mass or acute abnormality. Gallbladder and bile ducts: Surgical clips noted in the gallbladder fossa of prior cholecystectomy. Mild prominence of the common hepatic bile duct post cholecystectomy, without significant biliary ductal dilatation, otherwise. Findings are stable with prior exam August 01, 2022. Pancreas: Normal. No ductal dilation. Spleen: Normal. No splenomegaly. Adrenal glands: Normal. No mass. Kidneys and ureters: Findings suggestive of a couple of small renal cortical cysts, unchanged with prior exam. Nonobstructing renal calculi bilaterally, left greater than right. Interval resolution of distal left ureteral calculus and obstructive uropathy on the left with prior exam. Stomach and bowel: Mild colonic diverticulosis without CT findings of diverticulitis. Bowel appears unremarkable otherwise. Appendix: History of previous appendectomy. No pericecal inflammatory changes. Intraperitoneal space: Unremarkable. No free air. No significant fluid collection. Vasculature: Vascular calcification without aneurysmal dilatation of the abdominal aorta. Lymph nodes: Mild nonspecific periaortic or retroperitoneal lymph nodes, without significant enlargement. Suggestion of calcified nodes within both sides of the pelvis. Urinary bladder: Underdistention of the urinary bladder for adequate evaluation. Reproductive: Suggestion of prior hysterectomy. Bones/joints: Unremarkable. No acute fracture. Soft tissues: Unremarkable. CT/CT angio chest w abd pel w con IMPRESSION: 1. No CT findings to indicate pulmonary embolus 2. Chronic changes when correlated with previous exam with mild chronic scarring or fibrosis and with mild chronic herniation of lung parenchyma into the left posterolateral aspect of the thorax in the lower left lung, with associated vascular crowding and/or atelectasis at this level. 3. Very small amount of peripheral focal areas of ground-glass opacity within the lower lungs and consider minimal infiltrate or pneumonitis. 4. Mild adenopathy within the mediastinum and hilar region, particularly prominent in the subcarinal mediastinum with a 3 cm lymph node. This is more prominent than prior exam. Mildly prominent right axillary lymph node also noted. IMPRESSION: 1. Previous cholecystectomy and prior hysterectomy, as well as appendectomy. 2. Nonobstructing renal calculi and findings suggestive of small renal cortical cysts without findings of ureteral calculus or obstructive uropathy with today's exam. 3. Mild colonic diverticulosis. 4. Vascular calcification along with suggestion of calcified nodes within the pelvis. 5.
[2022-08-15 15:18] LABS: Troponin(5th) Baseline 8 ng/L (0-10)
[2022-08-15 15:28] LABS: NT Pro B Type Natriuretic Pept 112 pg/mL (0-450); Procalcitonin 0.06 ng/mL (0-0.5); Thyroid Stimulating Hormone 3.81 uIU/mL (0.27-4.20)
[2022-08-15 15:40] LABS: Alanine Aminotransferase 14 U/L (0-33); Albumin Level 4.5 g/dL (3.5-5.2); Alkaline Phosphatase 77 U/L (35-105); Anion Gap 18.9 (5-19); Aspartate Amino Transferase 23 U/L (0-32); Blood Urea Nitrogen 10 mg/dL (8-23); C Reactive Protein 12.8 mg/L (0.0-4.9); Calcium 8.8 mg/dL (8.5-10.5); Carbon Dioxide 23 mmol/L (22-29); Chloride 99 mmol/L (98-107); Creatinine Clr Calc Pharmacy 50.2648; Globulin 2.6 g/dL (1.3-4.6); Glucose 79 mg/dL (65-115); Osmolality Calculated 282 mOsm/kg (285-295); Potassium 3.9 mmol/L (3.5-5.1); Sodium 137 mmol/L (136-145); Total Bilirubin 0.5 mg/dL (0.15-1.2); Total Protein 7.1 g/dL (6.6-8.7)
[2022-08-15] MEDS: iohexol 350 mg/mL 500 mL Btl (per mL) IV (15:56)
[2022-08-15 16:20] LABS: Urine Appearance Cloudy (CLEAR); Urine Color Dark Yellow (Yellow)
[2022-08-15 16:21] LABS: Add Urine Microscopic? YES; Bilirubin Urine Neg (Negative); Blood Urine 3+ (Negative); Glucose Urine UA Norm (Normal); Ketones Urine 2+ (Negative); Leukocyte Esterase Urine 2+ (Negative); Nitrate Urine Positive (Negative); Protein Urine Neg (Negative); Sulfosalicylic Acid Urine Negative (Negative); Urobilinogen Urine Norm (Negative); pH Urine 8 (5-7)
[2022-08-15 16:22] LABS: Add Urine Culture? Yes; Bacteria Urine 4+ /hpf; Squamous Epithelial Cell Urine 0-4 /hpf (0-5); WBC Urine 25-40 /hpf (0-5)
--- NOTE | 2022-08-15 16:24 | ECG_ITS ---
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 Measurements Intervals [place] Rate: 67 P: 89 AK: 180 QRS: -55 QRSD: 97 T: 79 QT: 404 QTc: 429 Interpretive Statements ELECTRONIC ATRIAL PACEMAKER PATTERN CONSISTENT WITH PULMONARY DISEASE INCOMPLETE RIGHT BUNDLE BRANCH BLOCK [90+ ms QRS DURATION, TERMINAL R IN V1/V2, 40+ ms S IN I/aVL/V4/V5/V6] LEFT ANTERIOR FASCICULAR BLOCK [QRS AXIS <= -45, QR IN I, RS IN II] Compared to ECG 08/15/2022 14:32:05 Left anterior fascicular block now present Electronically Signed On 08-15-2022 22:05:51 HYDROELECTRIC PLANT ELECTRICIAN by Jen Castro M.D. [id number]
[2022-08-15] MEDS: albuterol 2.5 mg/3 mL Neb INHALATION (16:33)
[2022-08-15] MEDS: ipratropium 0.5 mg/2.5 mL Neb INHALATION (16:33)
[2022-08-15 16:40] LABS: Adenovirus Not Detected (NOT DETECT); Chlamydia Pneumoniae Not Detected (NOT DETECT); Coronavirus 229E,HKU1,NL63,OC4 Not Detected (NOT DETECT); Human Metapneumovirus Not Detected (NOT DETECT); Human Rhinovirus/Enterovirus Not Detected (NOT DETECT); Influenza A Not Detected (NOT DETECT); Influenza A H1 Not Detected (NOT DETECT); Influenza A H1-2009 Not Detected (NOT DETECT); Influenza A H3 Not Detected (NOT DETECT); Influenza B Not Detected (NOT DETECT); Mycoplasma Pneumoniae Not Detected (NOT DETECT); Parainfluenza Virus Type 1 Not Detected (NOT DETECT); Parainfluenza Virus Type 2 Not Detected (NOT DETECT); Parainfluenza Virus Type 3 Not Detected (NOT DETECT); Parainfluenza Virus Type 4 Not Detected (NOT DETECT); Respiratory Syncytial Virus A Not Detected (NOT DETECT); Respiratory Syncytial Virus B Not Detected (NOT DETECT); SARS-COV-2 Detected (NOT DETECT)
[2022-08-15] MEDS: predniSONE 20 mg Tablet 60 MG PO (16:49)
--- NOTE | 2022-08-15 17:05 | PC.NURSE ---
Doctor notified of IV being removed. This nurse received verbal orders not to insert another. Doctor ordered an oral route instead.
== END 2022-08-15 17:50 | disposition home or self-care (01) ==
PROVIDERS: Emergency Provider Emergency Medicine; PCP Nurse Practitioner
DX: U07.1 COVID-19 (principal); J44.1 Chronic obstructive pulmonary disease with (acute) exacerbation; N39.0 Urinary tract infection, site not specified; Z79.4 Long term (current) use of insulin; Z79.82 Long term (current) use of aspirin; Z87.891 Personal history of nicotine dependence; Z85.6 Personal history of leukemia; E11.9 Type 2 diabetes mellitus without complications; I10 Essential (primary) hypertension; E78.5 Hyperlipidemia, unspecified; Z95.0 Presence of cardiac pacemaker
CPT/HCPCS: 36415; 71045; 71275; 74177; 80053; 81001; 83735; 83880; 84145; 84443; 84484; 85025; 85378; 86140; 87040; 87077; 87086; 87186; 87635; 93005; 94640; 96360; 99285; J7030; J7512; J7613; J7644; Q9967

== ENCOUNTER 2022-09-07 11:27 | Outpatient (CLI) | payer MEDICARE, OTHER, SELFPAY ==
--- NOTE | 2022-09-07 11:36 | XR_ITS ---
WS: [id number] XR KUB [id number] REASON FOR EXAM: STONES FINDINGS: 4 mm intrarenal calculi on the left unchanged compared to 08/02/2022. Left ureteral vesicle junction c alculus seen on the examination of 08/02/2022 is no longer identifiable. No other significant abnormality. XR/XR KUB [id number] IMPRESSION: Stable left intrarenal calculi. Previously demonstrated left ureteral vesicle junction calculus no longer ident ifiable.
== END 2022-09-07 11:28 | disposition home or self-care (01) ==
LOC: RAD 11:31
PROVIDERS: PCP Nurse Practitioner; Visit Provider Urology
DX: N20.0 Calculus of kidney (principal)
CPT/HCPCS: 74018; 99213

== ENCOUNTER → 2022-09-19 11:09 | Outpatient (BNVA) | payer MEDICARE, OTHER, SELFPAY | PROVIDERS: PCP Nurse Practitioner; Visit Provider Nurse Practitioner | DX: M25.561 Pain in right knee (principal); E03.9 Hypothyroidism, unspecified; E11.65 Type 2 diabetes mellitus with hyperglycemia; Z79.4 Long term (current) use of insulin; J44.9 Chronic obstructive pulmonary disease, unspecified; I10 Essential (primary) hypertension; R35.0 Frequency of micturition; R26.2 Difficulty in walking, not elsewhere classified | CPT/HCPCS: 73562 ==

== ENCOUNTER → 2022-09-23 09:24 | Outpatient (BNVA) | payer MEDICARE, OTHER, SELFPAY | PROVIDERS: PCP Nurse Practitioner; Visit Provider Podiatrist Foot & Ankle Surgery | DX: E11.42 Type 2 diabetes mellitus with diabetic polyneuropathy (principal); Z79.4 Long term (current) use of insulin; I73.9 Peripheral vascular disease, unspecified; B35.1 Tinea unguium; G62.9 Polyneuropathy, unspecified; M20.11 Hallux valgus (acquired), right foot; M20.12 Hallux valgus (acquired), left foot | CPT/HCPCS: 11721; 99204 ==

== ENCOUNTER 2022-10-12 11:42 | Outpatient (CLI) | payer MEDICARE, OTHER, SELFPAY ==
--- NOTE | 2022-10-12 11:15 | US_ITS ---
WS: [id number] INDICATION: RIGHT thigh lumps. TECHNIQUE: Ultrasound soft tissue area of concern RIGHT thigh FINDINGS: Ultrasound soft tissue area of concern RIGHT thigh. Normal underlying subcutaneous and musc ular tissue. No evidence of cystic or solid lesions. No drainable fluid collections. No suspicious fi ndings. US/US soft tissue/extremity [id number] IMPRESSION: No suspicious findings.
[2022-10-12 18:08] LABS: Anion Gap 12.3 (5-19); Blood Urea Nitrogen 14 mg/dL (8-23); Calcium 8.9 mg/dL (8.5-10.5); Carbon Dioxide 29 mmol/L (22-29); Chloride 105 mmol/L (98-107); Glucose 155 mg/dL (65-115); NT Pro B Type Natriuretic Pept 99 pg/mL (0-450); Osmolality Calculated 298 mOsm/kg (285-295); Potassium 4.3 mmol/L (3.5-5.1); Sodium 142 mmol/L (136-145)
== END 2022-10-12 11:43 | disposition home or self-care (01) ==
LOC: RAD 11:45
PROVIDERS: Internal Medicine Cardiovascular Disease; PCP Nurse Practitioner; Visit Provider Nurse Practitioner
DX: R07.9 Chest pain, unspecified (principal); Z95.0 Presence of cardiac pacemaker; E03.9 Hypothyroidism, unspecified; J44.9 Chronic obstructive pulmonary disease, unspecified; E78.2 Mixed hyperlipidemia; I10 Essential (primary) hypertension
CPT/HCPCS: 36415; 76882; 80048; 80053; 80061; 83036; 83880; 99214

== ENCOUNTER → 2022-11-02 08:17 | Outpatient (BNVA) | payer MEDICARE, OTHER, SELFPAY | PROVIDERS: PCP Nurse Practitioner; Visit Provider Nurse Practitioner | DX: R30.0 Dysuria (principal); N39.0 Urinary tract infection, site not specified | CPT/HCPCS: 81000; 87077; 87086; 87184 ==

== ENCOUNTER 2022-11-07 12:50 | Oncology outpatient (recurring) (ONCR) | payer MEDICARE, OTHER, SELFPAY ==
[2022-11-07 13:28] LABS: Basophils # 0.1 10^3/uL (0.0-0.1); Basophils % 0.5 %; Eosinophils # 0.4 10^3/uL (0.0-0.8); Eosinophils % 1.2 %; Hematocrit 44.2 % (37.0-47.0); Hemoglobin 14.4 g/dL (11.5-15.3); Lymphocytes % 76.7 %; Mean Corpuscular HGB Conc 32.6 g/dL (30.0-36.0); Mean Corpuscular Hemoglobin 29.8 pg (28.0-34.0); Mean Corpuscular Volume 91.3 fl (81-99); Mean Platelet Volume 9.3 fL (7.4-10.4); Monocytes # 1.5 10^3/uL (0.2-0.9); Monocytes % 5.2 %; Neutrophils # 4.62 10^3/uL (1.8-7.7); Nucleated Red Blood Cells % 0 %; Platelet Count 166 10^3/cmm (130-400); Red Blood Count 4.84 10^6/uL (4.1-5.3); White Blood Count 28.7 10^3/uL (4.0-10.0)
[2022-11-07 13:39] LABS: Alanine Aminotransferase 15 U/L (0-33); Albumin Level 4.5 g/dL (3.5-5.2); Alkaline Phosphatase 83 U/L (35-105); Blood Urea Nitrogen 11 mg/dL (8-23); Calcium 8.7 mg/dL (8.5-10.5); Carbon Dioxide 21 mmol/L (22-29); Chloride 100 mmol/L (98-107); Globulin 2.2 g/dL (1.3-4.6); Glucose 155 mg/dL (65-115); Osmolality Calculated 285 mOsm/kg (285-295); Sodium 136 mmol/L (136-145); Total Bilirubin 0.4 mg/dL (0.15-1.2); Total Protein 6.7 g/dL (6.6-8.7)
[2022-11-07 13:40] LABS: Anion Gap 19.3 (5-19); Aspartate Amino Transferase 21 U/L (0-32); Potassium 4.3 mmol/L (3.5-5.1)
[2022-11-07 13:41] LABS: Lactate Dehydrogenase 317 U/L (135-214)
[2022-11-07 14:05] LABS: Slide Review Slide Review Perform
== END 2022-12-07 23:59 | disposition home or self-care (01) ==
PROVIDERS: PCP Nurse Practitioner; Visit Provider Internal Medicine Medical Oncology
DX: Z08 Encounter for follow-up examination after completed treatment for malignant neoplasm; Z85.6 Personal history of leukemia; D64.9 Anemia, unspecified; R59.0 Localized enlarged lymph nodes; R74.02 Elevation of levels of lactic acid dehydrogenase [LDH]; Z79.899 Other long term (current) drug therapy; Z87.891 Personal history of nicotine dependence; C91.10 Chronic lymphocytic leukemia of B-cell type not having achieved remission
CPT/HCPCS: 36415; 80053; 83615; 85025; 99214

== ENCOUNTER → 2022-12-08 11:43 | Outpatient (BNVA) | payer MEDICARE, OTHER, SELFPAY | PROVIDERS: PCP Nurse Practitioner; Visit Provider Nurse Practitioner | DX: G70.00 Myasthenia gravis without (acute) exacerbation (principal); E11.65 Type 2 diabetes mellitus with hyperglycemia; Z79.4 Long term (current) use of insulin | CPT/HCPCS: 80053; 83036 ==

== ENCOUNTER → 2022-12-09 10:12 | Outpatient (BNVA) | payer MEDICARE, OTHER, SELFPAY | PROVIDERS: PCP Nurse Practitioner; Visit Provider Podiatrist Foot & Ankle Surgery | DX: E11.42 Type 2 diabetes mellitus with diabetic polyneuropathy (principal); M20.12 Hallux valgus (acquired), left foot; M20.11 Hallux valgus (acquired), right foot; I73.9 Peripheral vascular disease, unspecified; B35.1 Tinea unguium; G62.9 Polyneuropathy, unspecified; Z79.4 Long term (current) use of insulin | CPT/HCPCS: 11721 ==

== ENCOUNTER 2022-12-13 10:11 | Outpatient (CLI) | payer MEDICARE, OTHER, SELFPAY ==
--- NOTE | 2022-12-13 | ECG_ITS ---
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 Interpretive Statements NAME OF STUDY: LEXISCAN SESTAMIBI STRESS TEST INDICATION: [Chest Pressure; Shortness of Breath, ] Procedure: At the baseline, the blood pressure was 147/72 mmHg with a heart rate of 64 bpm. The electrocardiogram showed normal sinus rhythm, q waves in inferior leads II,III, aVF. The Lexiscan was infused over a period of 20 seconds. A total of 0.4 mg of Lexiscan was infused. The stress phase was continued for a total of 5 minutes. Heart rate was at the end of stress phase was 71 bpm and a blood pressure of 106/71 mmHg. The EKG at the peak infusion revealed normal sinus rhythm with no significant ST-T wave changes. Sestamibi was injected 20 seconds after the Lexiscan infusion. Blood pressure at the end of recovery phase was 112/56 mmHg with a heart rate of 66 bpm. Conclusion: 1. Normal EKG response to Lexiscan infusion 2. No Lexiscan induced chest pain or cardiac arrhythmia. 3. Normal blood pressure and heart rate response. 4. Sestamibi/sestamibi perfusion scan pending; see separate report. Electronically Signed On 12-27-2022 17:11:14 CDT by Colby Coello M.D. [id number]
[2022-12-13 10:54] VITALS: BMI 25.4
--- NOTE | 2022-12-13 10:56 | NMCV_ITS ---
NM alvina perf SPECT r/s* [id number] Felicitas Augustine Age: 82 Gender: F : 1940 Exam Date: 12/13/2022 11:23 Ordering Phys: Aimee Ramos MD ([email or web address]) Technologist: HERNÁN Hoskins Exam Location: [facility] Indications: CORONARY ANGIOPLASTY STATUS, CHEST PAIN, HYPERTENSION STRESS TEST Please see separate stress test report in [facility] for full findings IMAGE PROTOCOL Rest/Stress 1 Lexiscan Day Radiopharmaceutical Dose (mCi) Administration Site Administered by Rest: Tc-99m 10.9 IV HERNÁN Hoskins Sestamibi Stress:Tc-99m 32.3 IV HERNÁN Waters Sestamibi Rest: 12/13/2022 60 Discovery 630 Stress: 12/13/2022 30 Discovery 630 0.4mg Lexiscan. Supine position only as patient was unable to lay prone. SPECT RESULTS Technical Quality: Good Raw Data Analysis: Normal Image Corrections: No attenuation or motion correction applied Summed Stress Score: 5 Summed Rest Score: 2 Summed Difference Score: 4 PERFUSION FINDINGS There is a medium sized area of reversible perfusion defect noted in apical inferior and inferior hendrix. This is consistent with medium sized area of ischemia in RCA territory. FUNCTIONAL RESULTS (calculated via Gated SPECT) Stress Image LV EF (%): 78 Stress EDV (mL):41 TID: 0.89 Stress ESV (mL):9 FUNCTIONAL FINDINGS: There is normal left ventricular systolic function. IMPRESSIONS 1. Abnormal myocardial perfusion imaging with medium sized area of ischemia seen in RCA territory. 2. LV systolic function is normal Colby Coello MD (Electronically Signed) Final Date: 17 December 2022 09:36 S
[2022-12-13] MEDS: regadenoson 0.4 Mg/5 ml Syringe IVP (12:07)
[2022-12-13] MEDS: aminophylline 25 mg/mL SDV 10 mL IVP (12:22)
[2022-12-13 12:30] VITALS: BP 112/58; PULSE 68
== END 2022-12-13 10:12 | disposition home or self-care (01) ==
LOC: CDL 10:12
PROVIDERS: PCP Nurse Practitioner; Visit Provider Internal Medicine Cardiovascular Disease
DX: R07.9 Chest pain, unspecified (principal); R06.02 Shortness of breath; I10 Essential (primary) hypertension; Z98.61 Coronary angioplasty status
CPT/HCPCS: 36415; 78452; 93017; 96374; A9500; J0280; J2785

== ENCOUNTER → 2022-12-22 12:18 | Outpatient (BNVA) | payer MEDICARE, OTHER, SELFPAY | PROVIDERS: PCP Nurse Practitioner; Visit Provider Internal Medicine Pulmonary Disease | DX: R59.0 Localized enlarged lymph nodes (principal); J44.9 Chronic obstructive pulmonary disease, unspecified; R94.39 Abnormal result of other cardiovascular function study; Z87.891 Personal history of nicotine dependence | CPT/HCPCS: 99204 ==

== ENCOUNTER 2022-12-28 09:50 | Outpatient (CLI) | payer MEDICARE, OTHER, SELFPAY ==
[2022-12-28 10:10] VITALS: PULSE 79; RESP 20; O2SAT 96
[2022-12-28] MEDS: albuterol 2.5 mg/3 mL Neb INHALATION (10:10)
[2022-12-28 10:15] VITALS: PULSE 73
== END 2022-12-28 09:51 | disposition home or self-care (01) ==
LOC: RT 09:52
PROVIDERS: PCP Nurse Practitioner; Visit Provider Internal Medicine Pulmonary Disease
DX: R06.02 Shortness of breath (principal); R94.2 Abnormal results of pulmonary function studies; Z87.891 Personal history of nicotine dependence
CPT/HCPCS: 94060; 94618; 94726; 94729; J7613

== ENCOUNTER 2023-01-06 10:53 | Outpatient (CLI) | payer MEDICARE, OTHER, SELFPAY ==
[2023-01-06] VITALS (30 sets, daily range): BP systolic 112–155; BP diastolic 51–92; PULSE 60–82; RESP 12–28; TEMP 35.9; O2SAT 92–95; BMI 25.7
--- NOTE | 2023-01-06 11:00 | XACV_ITS ---
Exam Room: 2 Ht: 160 cm Wt: 66 kg BSA: 1.72 m2 Gender: Female : 1940 Any Known Allergies: Sulfa Exam Priority: Routine Procedure(s): Procedure Description: Diagnostic procedure Procedure Description: Left Heart Catheterization Procedure Description: Coronary Angiography Procedure Description: Pressure Wire Richard BROWN; Diagnostic Cath Status: Elective Diagnostic Findings * The left main is a short meeting rhythm with no symptoms noted lesions. * The left-sided ascending artery is a medium caliber vessel reveals to be very tortuous throughout its course. The artery appears to wraparound the LV apex minimally. The proximal LAD was noted around 30 to 40% narrowing. The mid artery was found to have around 50 to 60% tubular narrowing. Minimal intimal irregularities were noted in the mid and distal segments of the artery. * Left circumflex artery is a medium caliber vessel which was found to have around 30 to 40% narrowing in the proximal to mid segment. The artery appears to give off 2 obtuse marginal branches. These branches were found to have minimal intimal irregularities. * The right coronary artery is a medium caliber codominant vessel with a proximal segmental narrowing of around 60%. * The proximal to mid segments of the left anterior descending and circumflex artery where found to have at least moderate calcification. * No disease noted in the Left Main, Left Anterior Descending, Right, or Circumflex coronary arteries. * Coronary angiography shows right dominance. Conclusions 1. The patient underwent left heart catheterization with left and right coronary angiogram today. The findings are as follows. 2. 50 to 60% lesion in the mid LAD. 50 to 60% lesion in the proximal right coronary artery. Moderate calcification in the proximal to mid segments of the left anterior descending artery and circumflex artery. LVEDP of 20 mmHg. 3. In view of the patient's ongoing symptoms and the above findings, it was thought to be appropriate to consider FFR of the mid LAD lesion and the proximal right coronary artery lesion. I discussed and reviewed the cardiac catheterization data with Dr. Coello. Dr. Coello concurred with this plan took over furthermanagement of this patient. The patient had IFR. This is found to be nonsignificant. So based on this data is was opted to treat her medically. Recommendations * 32-year-old female with a history of hypertension, dyslipidemia, COPD, chronic lymphatic leukemia, pulmonary lesion, awaiting biopsy, has been complaining of recurrent episodes of chest pain. She had a Myocardial perfusion imaging which there was found to be abnormal. She was found moderate area of reversible defect in the distribution of the right coronary artery. The patient is requiring a lung biopsy for further evaluation of the lesion. In view of the patient's ongoing symptoms and the abnormal Myocardial perfusion imaging, in order to further evaluate the coronary status, a cardiac catheterization was recommended. . Interventional RX Recommendation: none Diagnostic RX Recommendation: medical therapy and/or counseling LV EDP: 20 mmHg Left Ventriculography Findings: * The LV gram was not performed because of some technical issues. Pressures Phase:Rest AO : / ( 5 ) @ 1:43:00 PM 99 / 67 ( 83 ) @ 1:44:00 PM 92 / 58 ( 75 ) @ 1:48:00 PM 101 / 66 ( 84 ) @ 1:57:00 PM 141 / 64 ( 95 ) @ 2:02:00 PM 141 / 64 ( 95 ) @ 2:02:00 PM 124 / 67 ( 93 ) @ 2:14:00 PM 98 / 53 ( 73 ) @ 2:24:00 PM LV : 150 / -4 / 20 @ 2:02:00 PM 151 / -2 / 20 @ 2:02:00 PM Valves Phase:DefaultPhase AV : 11.0 @ 1:34:04 PM AV Mean Gradient: 8.0 @ 1:34:04 PM 8.0 @ 1:34:04 PM Clinical Evaluation EBL: 5mL-10mL Procedural Details Procedure Consent Obtained. Admit Source: Out Patient. Pre-Procedure Time Out. Identified patient by full name and date of as verbalized by the patient/guarantor. Does the consent match the physician's order: Yes. Accurate & Complete Informed Consent: Yes. Inpatient/Outpatient History & Physical on Chart: Yes. If H&P is completed, is and addenduem needed: No; If yes, is the addendum complete: N/A. Visualize and Verify Site with Patient/Guarantor: N/A. Relevant Radiology Images available: Yes. The risks, benefits, and alternatives of sedation and/or procedure were discussed by physician. The patient agrees to continue. Procedure started. [facility] Clinical Fraility Score: 4: Vulnerable. 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 Chest Pain Symptom Assessment: Typical Angina Symptoms. Correct patient, site and procedure confirmed by cath team. Current diagnosis: Chest Pain, Abnormal stress test. PERRLA. 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 Lungs coarse with exp wheezes x 5 lobes. IV Site on Arrival: 20 gauge in the right forearm. IV Fluids: 0.9% NaCl at 75ml/hr. 0 mL infused prior to cytogenetics laboratory manager. Pre Procedural Pulses: bilateral radial was 3+. Pre Procedural Pulses: bilateral posterior tibial was 1+. Pre Procedural Pulses: bilateral dorsalis pedis was 2+. Oxygen started at 2liters/min via nasal canula. right radial was prepped with chloroprep then draped in the usual sterile fashion. right groin was prepped with chloroprep then draped in the usual sterile fashion. Physician notified. Baseline sample Acquired. HR: 66 BPM. Physician arrived. Physician scrubbed in. Immediate Pre-Procedure Time Out. Correct Patient: Yes; Correct Procedure: Yes; Correct Site: Yes; Correct Patient Position: Yes; Correct Supplies: Yes; Dried Flammable Prep: Yes; Blood Products Available: No;. Lidocaine 1% infiltrated to the right radial. Arterial access obtained. A 5 nigerien Omero catheter in over wire. Catheter removed over the exchange wire. A 5 nigerien TIG catheter in over wire. Multiple views taken of left coronary artery. Cony Velasco RN was relieved by Wilda Stout RN as monitoring person. Catheter redirected to the RCA. Catheter removed over the exchange wire. A 5 nigerien JR4 catheter in over wire. Angel Shaw RN releived Carole Kilpatrick RN as circulating nurse. Multiple views taken of right coronary artery. Dr. Coello notified to come review cine films. Physician review of cine films. EDP Sample taken: LV 150/-5,20; HR: 62 BPM; SpO2: 98%. Pullback taken: LV 151/-3,20; AO 141/64(95); Mean: 8mmHg, Peak to Peak: 11mmHg, SEP: 16sec/min; HR: 62 BPM; SpO2: 98%. Catheter redirected across the left ventricle. Dr. Coello scrubbed in to perform intervention. Catheter removed over the exchange wire. 6 nigerien XB 3 guide catheter was inserted over the wire. IFR guidewire was advanced through the guide catheter to lesion in the prox LAD. IFR spot performed of Prox LAD 0.96. IFR pullback performed of Prox LAD 0.96. IFR wire and guide catheter out. 6 nigerien JR 4 guide catheter was inserted over the wire. IFR guidewire was advanced through the guide catheter to lesion in the ostial RCA. IFR Spot of Ostial RCA 0.90. IFR Pullback of Ostial RCA 0.91. IFR wire removed. Guide catheter out. A TR Band was successful obtaining hemostatsis at the Right Radial artery insertion site. Post Procedure: Pulses reassessed and unchanged. PERRLA. 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 No VTE prophylaxis required. Medication's Wasted: Lidocaine 1% = 10 mL. Medication's Wasted: Nitro = 49.8 mg. Medication's Wasted: Other = Versed 1 mg. Medication's Wasted: Other = Fentanyl 50 mcg. Total IV fluids: 78 mL. Post-op diagnosis: Moderate stenosis of Prox LAD and Ostial RCA. Complications: none. Estimated blood loss: 5mL-10mL. Responsiveness - Normal response to verbal stimuli; alert and oriented, PERRLA. Airway - Unaffected, no intervention required; spontaneous ventilation. Circulation: W/N/L, pulses unchanged. Nausea/Vomiting: No. Procedure completed. Patient transferred by wheelchair to 1st floor. Access Site Site: Right Radial artery Sheath Size: 6 Fr Hemostasis Method: TR Band Hemostasis Success: Successful Procedure Medications Start: 12:34 PM Stop: 12:34 PM Medication: Versed Amount: 1 mg Route: I.V. Start: 12:37 PM Stop: 12:37 PM Medication: Verapamil Amount: 5 mg Route: I.A. Start: 12:38 PM Stop: 12:38 PM Medication: Nitrogylcerin Amount: 200 mcg Route: I.A. Start: 12:44 PM Stop: 12:44 PM Medication: Heparin Amount: 4000 units Route: I.V. Start: 1:12 PM Stop: 1:12 PM Medication: Heparin Amount: 1000 units Route: I.V. Start: 1:12 PM Stop: 1:12 PM Medication: Versed Amount: 1 mg Route: I.V. Start: 1:12 PM Stop: 1:12 PM Medication: Fentanyl Amount: 25 mcg Route: I.V. Start: 1:19 PM Stop: 1:19 PM Medication: Fentanyl Amount: 25 mcg Route: I.V. Start: 1:20 PM Stop: 1:20 PM Medication: Versed Amount: 1 mg Route: I.V. Start: 1:21 PM Stop: 1:21 PM Medication: Heparin Amount: 1000 units Route: I.V. I, the attending physician, have reviewed and verified all procedure medications. Yes, all medications given per verbal order History/Risk Factors Hypertension: Yes Dyslipidemia: Yes Peripheral Arterial Disease (PAD): No Myocardial Infarction (KS): No Obesity: No Renal Disease: No Prior Interventions PCI: No CABG: No Valve Surgery: No Report Signatures Finalized by Dr Aimee Ramos MD [facility] on 01/06/2023 06:08 PM
[2023-01-06] MEDS: aspirin 325 mg Tablet PO (11:25)
[2023-01-06] MEDS: diphenhydrAMINE 50 mg Capsule PO (11:25)
[2023-01-06 11:31] LABS: Glucose Point of Care 216 mg/dL (70-110)
[2023-01-06 11:49] LABS: Hematocrit 41.9 % (37.0-47.0); Hemoglobin 14.1 g/dL (11.5-15.3); Mean Corpuscular HGB Conc 33.7 g/dL (30.0-36.0); Mean Corpuscular Hemoglobin 30.1 pg (28.0-34.0); Mean Corpuscular Volume 89.3 fl (81-99); Mean Platelet Volume 8.9 fL (7.4-10.4); Platelet Count 168 10^3/cmm (130-400); Red Blood Count 4.69 10^6/uL (4.1-5.3); Red Cell Distribution Width 13.8 % (12.1-15.1)
[2023-01-06 12:05] LABS: Anion Gap 13.6 (5-19); Blood Urea Nitrogen 16 mg/dL (8-23); Calcium 8.8 mg/dL (8.5-10.5); Carbon Dioxide 27 mmol/L (22-29); Chloride 103 mmol/L (98-107); Glucose 224 mg/dL (65-115); Osmolality Calculated 296 mOsm/kg (285-295); Potassium 4.6 mmol/L (3.5-5.1); Sodium 139 mmol/L (136-145)
--- NOTE | 2023-01-06 12:13 | P.HP_ITS ---
Providers/Chief Complaint Admitting Physician: ILYA Ramos MD Primary Care Provider: Adam Anguiano, JAVASCRIPT PROGRAMMER-C Chief Complaint: R07.9, E78.2, I10, R94.39 History of Present Illness Felicitas Augustine is a 82 year old female with a history of hypertension, dyslipidemia, chronic lymphatic leukemia, COPD and permanent pacer implantation, was having recurrent episodes of chest pain. She had a Myocardial perfusion imaging in the beginning of this month and was found to have moderate area of fixed and reversible defect mostly in the distribution of the right coronary artery. For further evaluation of her symptoms, and also for the preop risk assessment, cardiac revision was recommended. Review of Systems Narrative: CONSTITUTIONAL: No fever or chills. [] EYES: No blurring of vision or other visual disturbances lately. [] ENT: No hoarseness of voice, auditory disturbances or sore throat. [] CARDIOVASCULAR: As mentioned above. [] RESPIRATORY: Patient is known to have chronic cough and COPD GASTROINTESTINAL: No hematemesis or melena. [] GENITOURINARY: No dysuria or hematuria. INTEGUMENTARY: No skin rashes or history of skin cancer. NEURO: No transient ischemic attacks or amaurosis. PSYCHIATRIC: No history of psychosis or major depression. HEMATOLOGIC: History of chronic lymphatic leukemia ENDOCRINE: No history of polyuria or polydipsia. MUSCULOSKELETAL: No recent joint pain or swelling. ALLERGY/IMMUNOLOGY: As mentioned above. Medications/Allergies Home Medications Medication Instructions Recorded Confirmed Last Taken Type lancets 33 gauge (TRUEplus Lancets) #100 ea 12/23/20 01/05/23 11/16/21 Rx fluticasone propionate 50 2 spray intranasal DAILY PRN 11/03/21 01/05/23 11/16/21 History mcg/actuation nasal Allergy Symptoms spray,suspension (Flonase Allergy Relief) flash glucose scanning reader #1 ea 01/12/22 01/05/23 Unknown Rx (FreeStyle William 2 [place]) lactulose 10 gram oral packet 20 g PO BID PRN Constipation 04/06/22 01/05/23 08/15/22 History medical marijuana See Rx Instructions .Route .COMPLEX 04/06/22 01/05/23 01/05/23 09:00 History flash glucose sensor (FreeStyle #2 ea 05/20/22 01/05/23 Unknown Rx William 2 Sensor kit) aspirin 81 mg tablet,delayed 81 mg PO DAILY #30 tabs 06/27/22 01/05/23 01/05/23 09:00 Rx release albuterol sulfate 90 mcg/actuation 2 puff inhalation QID PRN 09/19/22 01/05/23 Unknown Rx aerosol inhaler (Proventil HFA) Shortness Of Breath #6.7 grams furosemide 20 mg tablet 20 mg PO BID PRN edema #180 tabs 09/19/22 01/05/23 01/05/23 09:00 Rx insulin aspart U-100 100 unit/mL See Rx Instructions SUBCUT TID #15 09/19/22 01/06/23 01/05/23 18:00 Rx (3 mL) subcutaneous pen (Novolog mL FlexPen U-100 Insulin aspart) insulin glargine U-300 conc 300 See Rx Instructions SUBCUT DAILY 09/19/22 0 01/06/23 01/05/23 21:00 Rx unit/mL (3 mL) subcutaneous pen #12 mL (Toujeo Max U-300 SoloStar) levothyroxine 88 mcg tablet 88 mcg PO DAILY #90 tabs 09/19/22 01/05/23 01/05/23 09:00 Rx simvastatin 20 mg tablet 20 mg PO BEDTIME #90 tabs 09/19/22 01/05/23 01/05/23 21:00 Rx tolterodine 2 mg tablet (Detrol) 2 mg PO DAILY urinary frequency 09/19/22 01/05/23 01/05/23 09:00 Rx #90 tabs Power chair repair #1 ea 09/27/22 01/05/23 Unknown Rx ffdzftrh-yyiqlxyv-dgj C 250 1 tab PO DAILY PRN other 11/07/22 01/05/23 01/05/23 09:00 History mg-herbal no.124 11.66 mg chewable tablet (Airborne Gummy) meclizine 25 mg tablet 25 mg PO BID PRN dizziness #60 tabs 12/08/22 01/05/23 01/05/23 09:00 Rx albuterol sulfate 2.5 mg/3 mL 2.5 mg (3 mL) inhalation Q4H PRN 12/11/22 01/05/23 Unknown Rx (0.083 %) solution for nebulization shortness of breath or wheezing #75 mL budesonide 0.5 mg/2 mL suspension 0.5 mg (2 mL) inhalation BID #180 12/11/22 01/05/23 Unknown Rx for nebulization (Pulmicort) mL tiotropium 2.5 mcg-olodaterol 2.5 2 puff inhalation DAILY #4 grams 12/22/22 01/05/23 Unknown Rx mcg/actuation mist for inhalation (Stiolto Respimat) Allergies Allergy/AdvReac Type Severity Reaction Status Date / Time Sulfa (Sulfonamide Allergy RASH Verified 12/22/22 12:35 Antibiotics) PNEUMONIA VACCINE Allergy ALGY-Rash Uncoded 12/22/22 12:35 PFSH Acute PFSH: Medical History Chronic lymphocytic leukemia COPD (chronic obstructive pulmonary disease) Depression with anxiety Diabetes mellitus with hyperglycemia, with long-term current use of insulin Environmental and seasonal allergies Essential hypertension, benign Hyperlipidemia Hypothyroidism Left ureteral calculus Myasthenia gravis Neuropathy Pneumonia Urolithiasis UTI (urinary tract infection) Vitamin B 12 deficiency Vitamin D deficiency Surgical History H/O brain surgery Craniotomy x 4 for meningioma H/O esophagogastroduodenoscopy (11/17/21) 2013 H/O reduction of closed fracture left wrist 10/23/2015 H/O thyroidectomy Total thyroidectomy followed by radioactive iodine ablation for thyroid cancer History of appendectomy History of colonoscopy with polypectomy (11/17/21) History of hysterectomy with bilateral oophorectomy For cervical cancer Hx of cholecystectomy Pacemaker 04/05/2019 Family History Mother , AT 92 Anesthesia complication CAD (coronary artery disease) Cancer Dementia Stroke Brother CAD (coronary artery disease) Cancer Suicide Sister CAD (coronary artery disease) Suicide Grandmother Cancer Dementia Stroke Family/Other Cancer Dementia Stroke Brother Suicide Brother Suicide Father , IN HIS 60'S Alcoholic Liver disease Denies family history of Diabetes Clotting disorder Chronic kidney disease (CKD) Bleeding disorder Lung disease Social History Smoking and tobacco status: former smoker Quit status (tobacco): has quit using tobacco Year quit tobacco: 1997 Former quit date comment: 1 ppd X 45 years Second hand smoke exposure: No Smoking risk assessment/counseling performed?: No Alcohol intake: unknown Desire information about alcohol rehabilitation?: No Counseling given: No Substance/Drug Use: unknown Desire information about substance/drug rehabilitation?: No Counseling given: No Adopted: No Caregiver/support person: Yes Lives independently: No Household members: family Housing: House Marital status: / Number of children: 2 service: No Current occupational status: retired Current occupational exposures/hazards: No Do you think of yourself as: Straight/Heterosexual Vitals/I&O/Wt Last Vital Signs Temp 96.6 F L 01/06/23 11:00 Pulse 82 01/06/23 11:00 Resp 18 01/06/23 11:00 BP 130/63 01/06/23 11:00 Pulse Ox 92 01/06/23 11:00 O2 Del Method Room Air 01/06/23 11:00 Weight last 48 hrs Weight 145 lb Physical Exam Narrative: GENERAL: The patient is alert and oriented times three. Not in any acute distress. HEENT: No significant pallor, icterus or lymphadenopathy.Oral cavity: There are no mucous membrane lesions. NECK: Trachea appears to be central. No masses noted. No JVD or thyromegaly appreciated. RESPIRATORY: Chest is symmetrical. No intercostals muscle retraction or any accessory muscle activation. There is no chest wall tenderness. Breath sounds are heard bilaterally. No rales or rhonchi heard. No evidence of any consolidation. BREASTS: Deferred. HEART: The heart sounds are normal. No S3 or S4. Short systolic murmur in the lower sternal border no pericardial rub ABDOMEN: No vessel pulsations or distention. No tenderness. No organomegaly appreciated. Bowel sounds are normally heard. : Deferred. RECTAL: Deferred. LYMPHATIC: No lymphadenopathy noted in the neck. EXTREMITIES: No edema or cyanosis. No clubbing. MUSCULOSKELETAL: No acute joint deformities or swelling SKIN: There are no significant rashes or ecchymosis NEUROPSYCHIATRIC: The patient is alert and oriented x3. Appears to be in a good mood. No tremors or rigidity noted. Data 01/06/23 11:15 01/06/23 11:15 Other data: ?1.? Abnormal myocardial perfusion imaging with medium sized area of ischemia ?seen in RCA territory. ?2. ? LV systolic function is normal A&P Assessment and plan (1) Abnormal stress test: (2) Chronic lymphocytic leukemia B-cell type not having achieved remission: (3) Hyperlipidemia: Qualifiers: Hyperlipidemia type: mixed hyperlipidemia Qualified Code(s): E78.2 - Mixed hyperlipidemia (4) COPD (chronic obstructive pulmonary disease): Qualifiers: COPD type: unspecified COPD Qualified Code(s): J44.9 - Chronic obstructive pulmonary disease, unspecified (5) Essential hypertension, benign: (6) Lung nodule: Plan In view of her ongoing symptoms ,abnormal Myocardial perfusion imaging and preoperative status, in order to further evaluate her coronary status, a cardiac catheterization would be appropriate. The risk of bleeding, hematoma, vascular injury, myocardial infarction, myocardial perforation, malignant cardiac arrhythmias ,CVA, renal failure and other concomitant complications were expla ined in detail. In view of the patient's multiple comorbidities, she carries a high risk. This was explained in detail with the patient and her son which she understood well and consented to proceed. Attestations Medical Necessity Statement*: Patient may require an overnight stay Coding Level of Care Code 37343 Diagnoses Abnormal stress test R94.39 Chronic lymphocytic leukemia B-cell type not having achieved remission C91.10 Hyperlipidemia E78.2 Hyperlipidemia type: mixed hyperlipidemia COPD (chronic obstructive pulmonary disease) J44.9 COPD type: unspecified COPD Essential hypertension, benign I10 Lung nodule R91.1
[2023-01-06 12:16] LABS: Slide Review Slide Review Perform; White Blood Count 41.6 10^3/uL (4.0-10.0)
--- NOTE | 2023-01-06 12:18 | SUR.PHASEI ---
Addendum entered by Stanley Capps RN 01/06/23 12:19: CORRECTION. WBC 41.6 Original Note: CRITICAL WBC 41.2. DR DICKINSON MADE AWARE. NO NEW ORDERS AT THIS TIME.
--- NOTE | 2023-01-06 12:20 | P.HPUD_ITS ---
Surgery/Procedure H&P Update DATE OF PROCEDURE: January 06, 2023 DATE H&P PERFORMED: 01/06/23 PREOP DIAGNOSIS: Possible CAD PRIMARY INDICATION FOR PROCEDURE: Chest pain and abnormal Myocardial perfusion imaging PLANNED PROCEDURE: Operation Date: 01/06/23 12:00 Proposed Procedures p [facility] W/ W/o 15963 R07.9,E78.2,I10,R94.39(Left) - Aimee Ramos MD PATIENT REASSESSED PRIOR TO SEDATION, WITH NO CHANGE NOTED: Yes PHYSICAL EXAM: alert, oriented x 3, clear to auscultation bilaterally (Bilateral crackles and expiratory wheezing) and regular rate & rhythm AIRWAY EVAL/ANESTHESIA PLAN: normal airway, see other exam findings, ASA IV, Monitored Anesthesia, Local Anesthesia, Risks, benefits & alternatives of sedation and/or procedure discussed and Patient agrees to continue as planned
--- NOTE | 2023-01-06 12:23 | PC.NURSE ---
critical lab called wbc 41.6- physician notified. no new orders.
[2023-01-06 12:34] LABS: Absolute Neutrophil 2.1 10^3/cmm (1.4-6.5); Absolute Segmented Neutrophil 2.1 10/cmm (1.6-7.1); Eosinophils 0 %; Lymphocytes 56 %; Lymphocytes Absolute 39.1 10^3/cmm (1.2-3.4); Monocytes Absolute 0.4 10^3/cmm (0.1-0.6); Platelet Estimate Normal (Normal); Segmented Neutrophils 5 %; Total Cells Counted 100 (0-100)
--- NOTE | 2023-01-06 13:56 | PC.NURSE ---
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
[2023-01-06] MEDS: ipratropium-albuterol 3 mL Neb INHALATION (15:09)
--- NOTE | 2023-01-06 16:16 | PC.NURSE ---
pt developed soft bruising proximal to right wrist tr band.2nd tr band applied
--- NOTE | 2023-01-06 19:30 | PC.NURSE ---
tr bands slowly deflated and removed at 1900.slight soft bruising noted at site.right hand remains warm to touch and with brisk capillary refill.palpable radial pulse noted.site dressed with 2x2 gauze and secured with biocclusive drsg.pt instructed in activity restrictions s/p tr band removal...and instructed to notify staff for any bleeding,pain,dizziness..or for any concerns at all.pt verb understanding of instructions
== END 2023-01-06 20:27 | disposition home or self-care (01) ==
LOC: CCL 10:54 → CSU 14:01
PROVIDERS: Internal Medicine; PCP Nurse Practitioner; Visit Provider Internal Medicine Cardiovascular Disease
DX: R94.39 Abnormal result of other cardiovascular function study (principal); I25.10 Atherosclerotic heart disease of native coronary artery without angina pectoris; I10 Essential (primary) hypertension; E78.2 Mixed hyperlipidemia; J44.9 Chronic obstructive pulmonary disease, unspecified; R91.1 Solitary pulmonary nodule; C91.10 Chronic lymphocytic leukemia of B-cell type not having achieved remission; Z95.0 Presence of cardiac pacemaker; Z79.82 Long term (current) use of aspirin; Z79.4 Long term (current) use of insulin; E11.9 Type 2 diabetes mellitus without complications
CPT/HCPCS: 36415; 36416; 80048; 82962; 85007; 85025; 93458; 93571; 93572; 94640; 96365; 99152; 99153; C1769; C1887; C1894; G0378; J1644; J2250; J3010; J3490; J7030; J7626; Q0163; Q9967

== ENCOUNTER → 2023-01-16 14:25 | Outpatient (BNVA) | payer MEDICARE, OTHER, SELFPAY | PROVIDERS: PCP Nurse Practitioner; Visit Provider Nurse Practitioner Family | DX: I25.10 Atherosclerotic heart disease of native coronary artery without angina pectoris (principal); Z87.891 Personal history of nicotine dependence; I10 Essential (primary) hypertension | CPT/HCPCS: 99213 ==

== ENCOUNTER 2023-01-17 06:33 | Day surgery (SDC) | payer MEDICARE, OTHER, SELFPAY ==
[2023-01-13 13:09] VITALS: BMI 25.4
[2023-01-17] VITALS (9 sets, daily range): BP systolic 100–140; BP diastolic 54–78; PULSE 57–75; RESP 12–20; TEMP 36.1–36.4; O2SAT 91–95
--- NOTE | 2023-01-17 07:02 | P.ANESASSM_ITS ---
Pre-Anesthetic Assessment Height/Weight: Height 1.6 m Weight 65.317 kg Temp Pulse Resp BP Pulse Ox O2 Del Method 97.5 F L 75 18 136/75 95 Room Air 01/17/23 06:51 01/17/23 06:51 01/17/23 06:51 01/17/23 06:51 01/17/23 06:51 01/17/23 06:51 Preop Diagnosis: SOB Operation Date: 01/17/23 09:00 Proposed Procedures p EBUS, 26111, 07087, 23916, 16741, R91.1(Not Applicable) - Steve Raygoza DatarMD Familial anesthetic complications: none Was Beta Clyde taken within 24 hours: N/A Was Clonidine taken within 24 hours: N/A Last intake: Intake Last Liquid Date 01/17/23 Last Liquid Time 06:00 Last Solid Date 01/16/23 Last Solid Time 19:00 Social No alcohol and No tobacco Medical Marijuana Exam No alert, oriented x 3, No clear to auscultation bilaterally (productive chronic cough, breath sounds are clear but diminished.) and regular rate & rhythm Airway Submandibular: within normal limits Cervical ROM: within normal limits Mallampati: Class II Dentition: false Pulmonary Chronic Obstructive Pulmonary Disease, Cough and Shortness of Breath 94% on room air. patient cannot lay flat but states this is her normal wishes they would give her home 02 but she is told she doesnt need it. CV/HEM Arrythmia, Coronary Artery Disease, Congestive Heart Failure and Hypertension syncopal episodes which is why she required a pacemaker in 2019. recent abnormal stress test noted patient under went cardiac cath. with no intervention. see Dr. Ramos note. None reported Hepatic None reported GI None reported Metabolic Diabetes Mellitus (insulin dependent), Hyperlipidemia and Thyroid Disease (hypo) Leukemia WBC 41,000 Musc/skel Weakness (myasthenia gravis baseline visual issues BLE weakness, uses electric wheelchair.) Neuropsych Anxiety, Cerebrovascular Accident (previous brain tumor residual effects resolved.), Depression and Neuropathy 1978- Brain tumor Anesthetic Plan ASA status: 4 Anesthesia: General Medications/Allergies Home Medications Medication Instructions Recorded Confirmed Last Taken Type lancets 33 gauge (TRUEplus Lancets) #100 ea 12/23/20 01/16/23 01/13/23 Rx fluticasone propionate 50 2 spray intranasal DAILY PRN 11/03/21 01/17/2323 History mcg/actuation nasal Allergy Symptoms spray,suspension (Flonase Allergy Relief) flash glucose scanning reader #1 ea 01/12/22 01/16/23 01/13/23 Rx (FreeStyle William 2 [place]) lactulose 10 gram oral packet 20 g PO BID PRN Constipation 04/06/22 01/17/23 08/15/22 History medical marijuana See Rx Instructions .Route .COMPLEX 04/06/22 01/17/23 01/16/23 History aspirin 81 mg tablet,delayed 81 mg PO DAILY #30 tabs 06/27/22 01/17/23 01/12/23 Rx release albuterol sulfate 90 mcg/actuation 2 puff inhalation QID PRN 09/19/22 01/17/23 01/17/23 Rx aerosol inhaler (Proventil HFA) Shortness Of Breath #6.7 grams furosemide 20 mg tablet 20 mg PO BID PRN edema #180 tabs 09/19/22 01/17/23 01/05/23 09:00 Rx insulin aspart U-100 100 unit/mL See Rx Instructions SUBCUT TID #15 09/19/22 01/17/23 01/16/23 Rx (3 mL) subcutaneous pen (Novolog mL FlexPen U-100 Insulin aspart) insulin glargine U-300 conc 300 See Rx Instructions SUBCUT DAILY 09/19/22 01/17/23 01/16/23 Rx unit/mL (3 mL) subcutaneous pen #12 mL (Toujeo Max U-300 SoloStar) levothyroxine 88 mcg tablet 88 mcg PO DAILY #90 tabs 09/19/22 01/17/23 01/16/23 Rx simvastatin 20 mg tablet 20 mg PO BEDTIME #90 tabs 09/19/22 01/17/23 01/16/23 Rx tolterodine 2 mg tablet (Detrol) 2 mg PO DAILY urinary frequency 09/19/22 01/17/23 01/16/23 Rx #90 tabs Power chair repair #1 ea 09/27/22 01/16/23 01/13/23 Rx wugsqtas-enbajwcf-hmo C 250 1 tab PO DAILY 11/07/22 01/17/23 01/05/23 09:00 History mg-herbal no.124 11.66 mg chewable tablet (Airborne Gummy) meclizine 25 mg tablet 25 mg PO BID PRN dizziness #60 tabs 12/08/22 01/17/23 01/14/23 Rx budesonide 0.5 mg/2 mL suspension 0.5 mg (2 mL) inhalation BID #180 12/11/22 01/17/23 01/17/23 Rx for nebulization (Pulmicort) mL tiotropium 2.5 mcg-olodaterol 2.5 2 puff inhalation DAILY #4 grams 12/22/22 01/17/23 01/17/23 Rx mcg/actuation mist for inhalation (Stiolto Respimat) flash glucose sensor (FreeStyle #2 ea 01/12/23 01/16/23 01/13/23 Rx William 2 Sensor kit) Allergies Allergy/AdvReac Type Severity Reaction Status Date / Time Sulfa (Sulfonamide Allergy RASH Verified 01/17/23 06:45 Antibiotics) PNEUMONIA VACCINE Allergy ALGY-Rash Uncoded 01/17/23 06:45 [facility] Anesthesia Medical History (Updated 01/16/23 @ 09:58 by RHETT Hassan) Atherosclerosis of [place] coronary artery without angina pectoris Chronic lymphocytic leukemia COPD (chronic obstructive pulmonary disease) Depression with anxiety Diabetes mellitus with hyperglycemia, with long-term current use of insulin Environmental and seasonal allergies Essential hypertension, benign Hyperlipidemia Hypothyroidism Left ureteral calculus Myasthenia gravis Neuropathy Pneumonia Urolithiasis UTI (urinary tract infection) Vitamin B 12 deficiency Vitamin D deficiency Surgical History H/O brain surgery Craniotomy x 4 for meningioma H/O esophagogastroduodenoscopy (11/17/21) 2013 H/O reduction of closed fracture left wrist 10/23/2015 H/O thyroidectomy Total thyroidectomy followed by radioactive iodine ablation for thyroid cancer History of appendectomy History of colonoscopy with polypectomy (11/17/21) History of hysterectomy with bilateral oophorectomy For cervical cancer Hx of cholecystectomy Pacemaker 04/05/2019 Family History Mother , AT 92 Anesthesia complication CAD (coronary artery disease) Cancer Dementia Stroke Brother CAD (coronary artery disease) Cancer Suicide Sister CAD (coronary artery disease) Suicide Grandmother Cancer Dementia Stroke Family/Other Cancer Dementia Stroke Brother Suicide Brother Suicide Father , IN HIS 60'S Alcoholic Liver disease Denies family history of Diabetes Clotting disorder Chronic kidney disease (CKD) Bleeding disorder Lung disease Social History Smoking and tobacco status: former smoker Quit status (tobacco): has quit using tobacco Year quit tobacco: 1997 Former quit date comment: 1 ppd X 45 years Second hand smoke exposure: No Smoking risk assessment/counseling performed?: No Alcohol intake: unknown Desire information about alcohol rehabilitation?: No Counseling given: No Substance/Drug Use: unknown Desire information about substance/drug rehabilitation?: No Counseling given: No Adopted: No Caregiver/support person: Yes Lives independently: No Household members: family Housing: House Marital status: / Number of children: 2 service: No Current occupational status: retired Current occupational exposures/hazards: No Do you think of yourself as: Straight/Heterosexual Data Anesthesia Cardiac Studies: Sestamibi Stress Test (Cardiology) 12/13
[2023-01-17] MEDS: sodium chloride 0.9% 1,000 ML 30 ML IV (07:09)
[2023-01-17 07:13] LABS: Glucose Point of Care 229 mg/dL (70-110)
--- NOTE | 2023-01-17 08:01 | W.PM.OPSUD ---
Surgery/Procedure H&P Update DATE OF PROCEDURE: January 17, 2023 DATE H&P PERFORMED: 12/22/22 H&P UPDATE INFORMATION: I have reviewed H&P completed within last 30 days, I have examined patient prior to procedure, No changes to prior documentation and Changes to prior documentation as noted here (Patient had cardiac cath 01/06/2023-50 to 60% LADStenosisWith nonsignificant IFR-Medical managementRecommended) CHANGES TO PREVIOUS DOCUMENTATION: None PREOP DIAGNOSIS: SOB PRIMARY INDICATION FOR PROCEDURE: Patient with history of Early stage CLL since 2019 under observation and expectant management-Surveillance CT scans of chest abdomen pelvis August 2022 continues to show suggestion of mild axillary lymph node prominent on the right and also noted of significant adenopathy in mediastinum and hilar region including 3 cm subcarinal node and a 2 cm node in the inferior right hilum. Today scheduled for EBUSGuided biopsy of mediastinal hilar lymph nodes to rule out other potential causes PLANNED PROCEDURE: Operation Date: 01/17/23 09:00 Proposed Procedures p EBUS, 18300, 77422, 07982, 13020, R91.1(Not Applicable) - Steve Valdovinos MD
[2023-01-17] MEDS: lidocaine 1% INJ 10 mL (per mL) XX (08:25)
[2023-01-17] MEDS: EPINEPHrine 1 mg/mL INJ XX (08:30)
--- NOTE | 2023-01-17 09:19 | P.OP_ITS ---
Operative Report Date of procedure: January 17, 2023 Pre-op diagnosis: Preop Diagnosis Suspected malignancy Post-op diagnosis: same Procedure done: 33986 Dx Bronchoscope w/BAL 79938 Bronchoscopy w/ therapeutic aspiration of the tracheobronchial tree (clearance of airway secretions, removal of mucus plugs) 76513 Dx Bronchoscopy w/Bronchial or Endobronchial biopsy(s), single or multiple sites 30831 EBUS Sampling 1/2 nodes Surgeon: Steve Clements [facility] Complications: Bleeding controlled with diluted epi as well as cold saline Condition: stable Brief History: Ms. Felicitas Augustine is a 82-year-old female with past medical history of hypothyroidism, COPD, hyperlipidemia, hype tension, myasthenia gravis, CLL, pulmonary herniation.? Referred by Dr. Rendon for new lymphadenopathy on her CT chest. Patient is a former smoker with hx of 1 ppd X 45 years, quit in 1997. Patient follows up with Dr. Rendon for CLL B-cell type-however she did not reach remission.? In February 2022 she was admitted for E. coli UTI/sepsis and her follow-up CT chest showed new axillary adenopathy, repeat CT scans of chest abdomen pelvis August 2022 continues to show suggestion of mild axillary lymph node prominent on the right and also noted of significant adenopathy in mediastinum and hilar region including 3 cm subcarinal node and a 2 cm node in the inferior right hilum.? Abdomen/pelvis showed mild nonspecific periaortic and retroperitoneal lymph nodes.While it is possible this Lymphadenopathy is all related to CLL-Other causes cannot be excluded. Patient had a pacemaker in 2019 and since then she did not have any recurrence of syncopal episodes.? She follows up with cardiology and for her atypical chest pain she had a myocardial perfusion scan performed 12/13/2022 which reported medium sized area of ischemia seen in RCA territory..But most recent cardiac cath 01/06/2023-showed 50 to 60% mid LAD occlusion with nonsignificant IFR-hence medical management recommended Today she is scheduled for endobronchial ultrasound ultrasound-guided biopsies of hilar/mediastinal lymph nodes To rule out other possibilities Procedure: 23625 Dx Bronchoscope w/BAL 72412 Bronchoscopy w/ therapeutic aspiration of the tracheobronchial tree (clearance of airway secretions, removal of mucus plugs) 11733 Dx Bronchoscopy w/Bronchial or Endobronchial biopsy(s), single or multiple sites 42307 EBUS Sampling 1/2 nodes Indication: CT evidence of new hilar/mediastinal lymphadenopathy Anesthesia: General anesthesia. Local anesthesia: The antonietta in the right and left mainstem bronchi were anesthetized with 1% lidocaine, 3 mL. Description of the procedure: The procedure was explained to the patient and the consent was obtained. The patient was brought to the OR. The patient underwent induction for general anesthesia and endotracheal tube was placed. The bronchoscope was advanced through the ET tube. The distal trachea was visualized. Tracheal mucosa appeared normal, no endotracheal lesion was seen. The antonietta was sharp. 1 mL each of 1% lidocaine was instilled in the trachea the right and left mainstem bronchi for local anesthesia. In a systematic manner bilateral bronchial tree was then examined. The bronchoscope was advanced into the left mainstem bronchus. There is a Endo bronchial lesion in the left mainstem bronchus. The left upper lobe, and lingula were examined up to the third subsegmental level and no abnormalities were identified. Mucosa of left upper lobe and lingula appeared normal with no endobronchial lesion. There were thick mucus secretions which were suctioned right away(45766). The mucosa was friable that it started bleeding at the introduction of bronchoscope in the left lower lobe segments The bronchoscope was then introduced into the right mainstem bronchus. The right upper lobe, right middle lobe and right lower lobe bronchi were examined up to the third subsegmental level and no abnormalities were identified. The mucosa appeared normal with no endobronchial lesions, active bleeding or mucous plugs.There were several thick mucus secretions which were suctioned right away(82454). Again the mucosa was friable and started bleeding with the introduction of bronchoscope in the right lower lobe subsegments. Bronchoscope was retracted and endobronchial ultrasound (18436 ) was introduced. Identified a lymph nodes at station station 7 and station 11R. Using ukah-liphjt-iodznyzj were taken from all 2 lymph node stations (13112); there was some evidence of bleeding which is controlled with instillation of cold saline. Ebus retracted and diagnostic bronchoscope reintroduced -BAL taken from left lower lobe; Endobronchial lesion from left main stem bronchus was biopsied - 4 specimens taken. There was some evidence of bleeding which was controlled with a diluted epinephrine and cold saline. After making sure there is no active bleeding, bronchoscope retracted and procedure terminated. Samples: Endobronchial ultrasound guided stlt-aklnuv-bbqptbvy were taken from all 2 lymph node stations (05273) A. Station 7 : touch prep -pathology reported negative for malignancy; rest of the material were placed in formalin for histopathology; 1 pass from Station 7 was placed in RPMI to rule out lymphoma; B. Station 11R : touch prep -pathology reported atypical lymphocytes; rest of the material were placed in formalin for histopathology C. Endobronchial biopsy (00714) from Left main Bronchus-4 passes-placed in formalin 1. Bronchoalveolar lavage (76791) was performed after wedging the bronchoscope at the entrance of Left lower lobe. 30 mL of saline was instilled, fluid return was 15 mL. Bronchoalveolar lavage specimen was sent for cell count and differential, gram stain and culture, cytology Complications: None.The patient was extubated and brought to the PACU in stable condition. Disposition: Patient can be discharged home in stable condition. Pt and her family are aware that I am going to call them to update final biopsy results once available.
--- NOTE | 2023-01-17 09:50 | XRR_ITS ---
PROCEDURE INFORMATION: Exam: XR Chest Exam date and time: 01/17/2023 10:12 AM Age: 82 years old Clinical indication: Device placement; Other: Post bronchoscopy; Prior surgery; Surgery date: Post-operative (0-2 days); Additional info: Post bronchoscopy/ebus, biopsies and bal to left lung TECHNIQUE: Imaging protocol: Radiologic exam of the chest. Views: 1 view. COMPARISON: CR XR chest 1V portable [id number] 08/15/2022 2:45 PM FINDINGS: Tubes, catheters and devices: Cardiac rhythm maintenance device is in place. Lungs: Calcified granuloma in the upper right lung. No focal airspace consolidation. Pleural spaces: Unremarkable. No pleural effusion. No pneumothorax. Heart/Mediastinum: Unremarkable. No cardiomegaly. Bones/joints: Unremarkable. Soft tissues: Left-sided intercostal hernia was better seen on prior CT. XR/XR chest 1V portable [id number] IMPRESSION: No acute cardiopulmonary abnormality.
[2023-01-17 10:00] LABS: Cyto Order Verification Order Verified
--- NOTE | 2023-01-17 10:20 | ANE.PACU2 ---
Inpatient post-anesthesia follow up: Airway intact: Yes Vital signs: Temperature 97.0 F Pulse Rate 64 Respiratory Rate 20 Blood Pressure 129/61 Pulse Oximetry 92 Oxygen Delivery Me thod Room Air Oxygen Flow Rate 2 Fraction of Inspir ed Oxygen Hydration adequate: Yes Nausea and vomiting: Yes Pain level: 1 Mental status: Baseline
[2023-01-18 13:06] LABS: Lymphoma Profile (BBPL) See Report
== END 2023-01-17 10:36 | disposition home or self-care (01) ==
PROVIDERS: PCP Nurse Practitioner; Visit Provider Internal Medicine Pulmonary Disease
PROC: BB4BZZZ Ultrasonography of Pleura (ICD-10-PCS; principal; 2023-01-17 09:00)
DX: R59.0 Localized enlarged lymph nodes (principal); C91.10 Chronic lymphocytic leukemia of B-cell type not having achieved remission; Z87.891 Personal history of nicotine dependence; I25.10 Atherosclerotic heart disease of native coronary artery without angina pectoris; J44.9 Chronic obstructive pulmonary disease, unspecified; I11.0 Hypertensive heart disease with heart failure; I50.9 Heart failure, unspecified; Z95.0 Presence of cardiac pacemaker; E11.9 Type 2 diabetes mellitus without complications; Z79.4 Long term (current) use of insulin; E03.9 Hypothyroidism, unspecified; Z86.73 Personal history of transient ischemic attack (TIA), and cerebral infarction without residual deficits; Z79.82 Long term (current) use of aspirin; E87.5 Hyperkalemia
CPT/HCPCS: 31624; 31625; 31645; 31652; 36416; 71045; 80503; 82962; 87070; 87205; 88112; 88184; 88185; 88305; J0171; J1100; J2371; J2405; J2704; J3490; J7030

== ENCOUNTER → 2023-01-20 16:55 | Outpatient (BNVA) | payer MEDICARE, OTHER, SELFPAY | PROVIDERS: PCP Nurse Practitioner; Visit Provider Internal Medicine Cardiovascular Disease | DX: Z45.010 Encounter for checking and testing of cardiac pacemaker pulse generator [battery] (principal) | CPT/HCPCS: 93296 ==

== ENCOUNTER 2023-02-22 11:30 | Oncology outpatient (recurring) (ONCR) | payer MEDICARE, OTHER, SELFPAY ==
[2023-02-22 11:43] VITALS: BP 129/69; PULSE 72; RESP 18; TEMP 36.1; O2SAT 96
[2023-02-22 12:00] LABS: Hematocrit 47.6 % (37.0-47.0); Hemoglobin 15.5 g/dL (11.5-15.3); Mean Corpuscular HGB Conc 32.6 g/dL (30.0-36.0); Mean Corpuscular Hemoglobin 29.9 pg (28.0-34.0); Mean Corpuscular Volume 91.7 fl (81-99); Mean Platelet Volume 8.9 fL (7.4-10.4); Platelet Count 166 10^3/cmm (130-400); Red Blood Count 5.19 10^6/uL (4.1-5.3)
[2023-02-22 12:04] LABS: White Blood Count 45.3 10^3/uL (4.0-10.0)
[2023-02-22 12:17] LABS: Slide Review Slide Review Perform
[2023-02-22 12:27] LABS: Alanine Aminotransferase 21 U/L (0-33); Albumin Level 4.7 g/dL (3.5-5.2); Alkaline Phosphatase 95 U/L (35-105); Anion Gap 13.2 (5-19); Aspartate Amino Transferase 22 U/L (0-32); Blood Urea Nitrogen 15 mg/dL (8-23); Calcium 9.4 mg/dL (8.5-10.5); Carbon Dioxide 31 mmol/L (22-29); Chloride 101 mmol/L (98-107); Globulin 2.5 g/dL (1.3-4.6); Glucose 131 mg/dL (65-115); Lactate Dehydrogenase 261 U/L (135-214); Osmolality Calculated 295 mOsm/kg (285-295); Potassium 4.2 mmol/L (3.5-5.1); Sodium 141 mmol/L (136-145); Total Bilirubin 0.6 mg/dL (0.15-1.2); Total Protein 7.2 g/dL (6.6-8.7)
== END 2023-03-09 23:59 | disposition home or self-care (01) ==
PROVIDERS: PCP Nurse Practitioner; Visit Provider Internal Medicine Medical Oncology
DX: Z08 Encounter for follow-up examination after completed treatment for malignant neoplasm (principal); Z85.6 Personal history of leukemia; D64.9 Anemia, unspecified; R59.0 Localized enlarged lymph nodes; R74.02 Elevation of levels of lactic acid dehydrogenase [LDH]; Z79.899 Other long term (current) drug therapy; Z87.891 Personal history of nicotine dependence; C91.10 Chronic lymphocytic leukemia of B-cell type not having achieved remission; R91.1 Solitary pulmonary nodule; R35.0 Frequency of micturition; R05.9 Cough, unspecified; R06.02 Shortness of breath; K59.00 Constipation, unspecified; R35.1 Nocturia; R42 Dizziness and giddiness; R30.0 Dysuria; Z79.2 Long term (current) use of antibiotics
CPT/HCPCS: 36415; 80053; 83615; 85025; 99214

== ENCOUNTER 2023-02-23 13:19 | Outpatient (CLI) | payer MEDICARE, OTHER, SELFPAY | END 2023-02-23 13:20 | disposition home or self-care (01) | LOC: RT 13:20 | PROVIDERS: PCP Nurse Practitioner; Visit Provider Internal Medicine Pulmonary Disease | DX: J44.9 Chronic obstructive pulmonary disease, unspecified (principal); R91.1 Solitary pulmonary nodule; R06.09 Other forms of dyspnea | CPT/HCPCS: 94618; 99214 ==

== ENCOUNTER → 2023-03-01 14:02 | Outpatient (BNVA) | payer MEDICARE, OTHER, SELFPAY | PROVIDERS: PCP Nurse Practitioner; Visit Provider Internal Medicine Cardiovascular Disease | DX: I25.10 Atherosclerotic heart disease of native coronary artery without angina pectoris (principal); E11.65 Type 2 diabetes mellitus with hyperglycemia; Z79.4 Long term (current) use of insulin; Z95.0 Presence of cardiac pacemaker; G70.00 Myasthenia gravis without (acute) exacerbation; E78.2 Mixed hyperlipidemia; E03.9 Hypothyroidism, unspecified; Z86.73 Personal history of transient ischemic attack (TIA), and cerebral infarction without residual deficits; Z87.891 Personal history of nicotine dependence; I10 Essential (primary) hypertension | CPT/HCPCS: 99214 ==

== ENCOUNTER → 2023-03-06 07:46 | Outpatient (BNVA) | payer MEDICARE, OTHER, SELFPAY | PROVIDERS: PCP Nurse Practitioner; Visit Provider Podiatrist Foot & Ankle Surgery | DX: E11.8 Type 2 diabetes mellitus with unspecified complications (principal); B35.1 Tinea unguium; I73.9 Peripheral vascular disease, unspecified; G62.9 Polyneuropathy, unspecified; E11.42 Type 2 diabetes mellitus with diabetic polyneuropathy; M20.12 Hallux valgus (acquired), left foot; M20.11 Hallux valgus (acquired), right foot; Z79.4 Long term (current) use of insulin | CPT/HCPCS: 11721 ==

== ENCOUNTER → 2023-03-10 10:53 | Outpatient (BNVA) | payer MEDICARE, OTHER, SELFPAY | PROVIDERS: PCP Nurse Practitioner; Visit Provider Nurse Practitioner | DX: R35.0 Frequency of micturition (principal); E03.9 Hypothyroidism, unspecified; E11.65 Type 2 diabetes mellitus with hyperglycemia; Z79.4 Long term (current) use of insulin; I10 Essential (primary) hypertension; J44.9 Chronic obstructive pulmonary disease, unspecified; G70.00 Myasthenia gravis without (acute) exacerbation; E55.9 Vitamin D deficiency, unspecified | CPT/HCPCS: 80053; 80061; 82306; 82607; 83036; 83735; 84443 ==

== ENCOUNTER → 2023-04-13 09:52 | Outpatient (BNVA) | payer MEDICARE, OTHER, SELFPAY | PROVIDERS: PCP Nurse Practitioner; Referring Provider Nurse Practitioner; Visit Provider Psychiatry & Neurology Neurology | DX: R25.2 Cramp and spasm (principal); G96.9 Disorder of central nervous system, unspecified; R59.0 Localized enlarged lymph nodes; R25.1 Tremor, unspecified; G70.00 Myasthenia gravis without (acute) exacerbation; C91.10 Chronic lymphocytic leukemia of B-cell type not having achieved remission; R53.1 Weakness; Z85.841 Personal history of malignant neoplasm of brain; Z95.0 Presence of cardiac pacemaker; Z87.891 Personal history of nicotine dependence; E11.42 Type 2 diabetes mellitus with diabetic polyneuropathy; E11.65 Type 2 diabetes mellitus with hyperglycemia; Z79.4 Long term (current) use of insulin | CPT/HCPCS: 99204 ==

== ENCOUNTER 2023-04-24 09:33 | Outpatient (CLI) | payer MEDICARE, OTHER, SELFPAY ==
[2023-04-24 10:58] LABS: Creatine Phosphokinase 75 U/L (26-192); Magnesium 2.5 mg/dL (1.7-2.3)
[2023-04-24 11:14] LABS: Vitamin B12 387 pg/mL (232-1245)
[2023-04-25 14:25] LABS: COMPLEMENT COMPONENT C3C 191 mg/dL; COMPLEMENT COMPONENT C4C 27 mg/dL
[2023-04-26 12:09] LABS: CENTROMERE B ANTIBODY <1.0 NEG AI (<1.0 NEG); JO-1 ANTIBODY <1.0 NEG AI (<1.0 NEG); RNP ANTIBODY <1.0 NEG AI (<1.0 NEG); SCL-70 ANTIBODY <1.0 NEG AI (<1.0 NEG); SJOGREN'S ANTIBODY (SS-A) <1.0 NEG AI (<1.0 NEG); SM ANTIBODY <1.0 NEG AI (<1.0 NEG); SS-B <1.0 NEG AI (<1.0 NEG)
[2023-04-26 13:35] LABS: Aldolase 5.5 U/L (< OR = 8.1)
[2023-04-26 16:09] LABS: ANA SCREEN, IFA NEGATIVE (NEGATIVE)
[2023-04-27 10:31] LABS: THYROID PEROXIDASE ANTIBODIES 1 IU/mL (<9)
[2023-04-28 18:34] LABS: Nicotinamide 66 ng/mL; Nicotinic Acid <20 ng/mL
[2023-05-01 17:15] LABS: DNA AB (DS) CRITHIDIA,IFA NEGATIVE (NEGATIVE)
[2023-05-02 16:34] LABS: Acetylcholine Receptor Binding <0.30 nmol/L
== END 2023-04-24 09:34 | disposition home or self-care (01) ==
PROVIDERS: PCP Nurse Practitioner; Visit Provider Psychiatry & Neurology Neurology
DX: G70.00 Myasthenia gravis without (acute) exacerbation (principal); E55.9 Vitamin D deficiency, unspecified; G62.9 Polyneuropathy, unspecified; I10 Essential (primary) hypertension; E11.65 Type 2 diabetes mellitus with hyperglycemia; Z79.4 Long term (current) use of insulin
CPT/HCPCS: 36415; 82085; 82310; 82550; 82607; 83519; 83735; 84591; 86140; 86160; 86162; 86235; 86255; 86376; 86431

== ENCOUNTER 2023-04-28 09:30 | Outpatient (CLI) | payer MEDICARE, OTHER, SELFPAY ==
--- NOTE | 2023-04-28 | CT_ITS ---
NOTE: Report was unsigned for reason: Order was edited. Original Signature date and time was: 04/28/23 @ [address] HEAD TECHNIQUE: Noncontrast and contrast-enhanced CT of the head. CLINICAL INFORMATION: CVA COMPARISON: 02/08/2022 DLP: 2794.[address] scans at [facility] use at least one of these dose optimization techniques: automated exposure control; mA and/or kV adjustment per patient size (includes targeted exams where dose is matched to clinical indication); or iterative reconstruction. FINDINGS: No evidence of intracranial hemorrhage or mass effect. Ventricular system and basal cisterns are patent. Moderate small vessel changes with moderate parenchymal volume loss. Tiny chronic lacunar infarct RIGHT thalamus. Benign calcifications LEFT greater than RIGHT cerebellum unchanged since 2016. Hypertrophic calcifications along the LEFT occipital condyle unchanged since 2019. Tiny lucencies in the calvarium unchanged since 2019. Paranasal sinuses and mastoid air cells are well aerated. .Normal visualized soft tissues. IMPRESSION: 1. No evidence of intracranial hemorrhage or mass effect. 2. Moderate small vessel changes and mild parenchymal volume loss. 3. No abnormal intracranial enhancement. MTDD
--- NOTE | 2023-04-28 09:37 | CT_ITS ---
WS: [id number] CT CERVICAL MYELOGRAM TECHNIQUE: CT of the cervical spine coronal and sagittal reformatted images post intrathecal administ ration of contrast. CLINICAL INFORMATION: G96.9 - Disorder of central nervous system, unspecified COMPARISON: None. DLP: 2794.[address] scans at [facility] use at least one of these dose optimization techniques: automated e xposure control; mA and/or kV adjustment per patient size (includes targeted exams where dose is matc hed to clinical indication); or iterative reconstruction. FINDINGS: Prior postoperative changes C1-C3 laminectomies with LEFT craniocervical bony fusion. This is similar in appearance to the prior examination. Low-lying cerebellar tonsils unchanged. Osteopenia. Spondyli tic changes cervical spine with disc osteophyte complex worse at C6-7. Mild central canal stenosis at C6-7. Emphysematous changes in the lung apices. Aberrant RIGHT subclavian artery C2-C3: Mild facet arthropathy. Mild RIGHT bony foraminal narrowing. Spinal canal is patent. C3-C4: Mild facet arthropathy. Moderate LEFT and mild RIGHT bony foraminal narrowing. Spinal canal is patent. C4-C5: Mild bilateral bony foraminal narrowing. Mild facet arthropathy with uncovertebral joint hyper trophy. C5-C6: Moderate facet arthropathy. Disc osteophyte complex with mild central canal stenosis. Mild keon ateral bony foraminal narrowing. C6-C7: Disc osteophyte complex with indentation the RIGHT ventral cervical cord. Mild central canal s tenosis. Moderate RIGHT greater than LEFT bony foraminal narrowing. Uncovertebral joint perjury. C7-T1: Disc osteophytic ridging. Spinal canal is patent. Mild bilateral foraminal narrowing. Visualized posterior fossa structures: Normal. Retropharyngeal course to the cervical ICAs. Prominent cervical and enlarged infraclavicular lymph nodes largest on the RIGHT at the thoracic inle t measuring 2.0 x 1.1 cm. These may be reactive but nonspecific. IMPRESSION: 1. Prior postoperative changes C1-C3 laminectomies with LEFT craniocervical bony fusion. This is si milar in appearance to the prior examination. Aberrant RIGHT subclavian artery 2. Mild central canal stenosis C5-C6 and C6-C7. 3. Multilevel bony foraminal narrowing described above. 4. Prominent cervical lymph nodes with enlarged infraclavicular and thoracic inlet lymph nodes. Thes e may be reactive but nonspecific. This can be followed up with neck and chest CT.
--- NOTE | 2023-04-28 09:47 | CT_ITS ---
WS: [id number] CT CHEST TECHNIQUE: Contrast enhanced CT of the chest with coronal and sagittal reformatted images. CLINICAL INFORMATION: G96.9 - Disorder of central nervous system, unspecified COMPARISON: CT 08/15/2022 and 05/16/2022 DLP: 2794.[address] scans at [facility] use at least one of these dose optimization techniques: automated e xposure control; mA and/or kV adjustment per patient size (includes targeted exams where dose is matc hed to clinical indication); or iterative reconstruction. FINDINGS: Bilateral axillary and subpectoral lymphadenopathy appears progressed compared to the prior studies. In addition enlarged lymph nodes at the RIGHT thoracic inlet as seen on the neck CT. No mediastinal or hilar lymphadenopathy. Aberrant RIGHT subclavian artery. Adrenal glands are normal. Partially visualized RIGHT renal cyst. Diffuse fatty filtration of the liver. Cholecystectomy clips. Moderate chronic emphysematous changes. Hazy opacities in the LEFT lower lobe laterally at the area o f prior rib resection. Lungs are otherwise well aerated. A few calcified granulomas. Subsegmental ate lectasis/fibrosis in the RIGHT middle lobe appears unchanged. Previously described irregular opacity LEFT upper lobe laterally appears unchanged. No other significant interval changes. Stable hazy micronodular opacities in the RIGHT upper lobe. IMPRESSION: 1. Irregular LEFT upper lobe hazy opacity is unchanged. 2. Subsegmental ectasis with fibrosis in the RIGHT middle lobe is unchanged. 3. Hazy groundglass infiltrates in LEFT lower lobe laterally in the area of prior rib resection like ly inflammatory. 4. Aberrant RIGHT subclavian artery. 5. Progressed bilateral bulky axillary lymphadenopathy with subpectoral lymphadenopathy. Additional enlarged lymph nodes at the RIGHT thoracic inlet. Lymph nodes could be further evaluated with ultraso und-guided biopsy or PET/CT.
--- NOTE | 2023-04-28 09:47 | CT_ITS ---
WS: [id number] CT HEAD TECHNIQUE: Noncontrast and contrast-enhanced CT of the head. CLINICAL INFORMATION: CVA COMPARISON: 02/08/2022 DLP: 2794.[address] scans at [facility] use at least one of these dose optimization techniques: automated e xposure control; mA and/or kV adjustment per patient size (includes targeted exams where dose is matc hed to clinical indication); or iterative reconstruction. FINDINGS: No evidence of intracranial hemorrhage or mass effect. Ventricular system and basal cisterns are pa tent. Moderate small vessel changes with moderate parenchymal volume loss. Tiny chronic lacunar infar ct RIGHT thalamus. Benign calcifications LEFT greater than RIGHT cerebellum unchanged since 2016. Hypertrophic calcifications along the LEFT occipital condyle unchanged since 2019. Tiny lucencies in the calvarium unchanged since 2019. Paranasal sinuses and mastoid air cells are well aerated. .Normal visualized soft tissues. IMPRESSION: 1. No evidence of intracranial hemorrhage or mass effect. 2. Moderate small vessel changes and mild parenchymal volume loss. 3. No abnormal intracranial enhancement.
[2023-04-28] MEDS: iohexol 350 mg/mL 500 mL Btl (per mL) IV (10:02)
== END 2023-04-28 09:31 | disposition home or self-care (01) ==
PROVIDERS: PCP Nurse Practitioner; Visit Provider Psychiatry & Neurology Neurology
DX: G70.00 Myasthenia gravis without (acute) exacerbation (principal); G96.9 Disorder of central nervous system, unspecified; I63.9 Cerebral infarction, unspecified; R07.9 Chest pain, unspecified; R25.1 Tremor, unspecified; R53.1 Weakness; R59.0 Localized enlarged lymph nodes; Q27.8 Other specified congenital malformations of peripheral vascular system; M48.02 Spinal stenosis, cervical region
CPT/HCPCS: 70460; 70470; 71260; 72126; Q9967

== ENCOUNTER → 2023-05-15 09:10 | Outpatient (BNVA) | payer MEDICARE, OTHER, SELFPAY | PROVIDERS: PCP Nurse Practitioner; Visit Provider Podiatrist Foot & Ankle Surgery | DX: B35.1 Tinea unguium (principal); I73.9 Peripheral vascular disease, unspecified; G62.9 Polyneuropathy, unspecified; E11.42 Type 2 diabetes mellitus with diabetic polyneuropathy; M20.12 Hallux valgus (acquired), left foot; M20.11 Hallux valgus (acquired), right foot; Z79.4 Long term (current) use of insulin | CPT/HCPCS: 11721 ==

== ENCOUNTER → 2023-05-23 15:27 | Outpatient (BNVA) | payer MEDICARE, OTHER, SELFPAY | PROVIDERS: PCP Nurse Practitioner; Visit Provider Nurse Practitioner | DX: E11.65 Type 2 diabetes mellitus with hyperglycemia (principal); Z79.4 Long term (current) use of insulin; E03.9 Hypothyroidism, unspecified; Z79.899 Other long term (current) drug therapy | CPT/HCPCS: 81000 ==

== ENCOUNTER 2023-06-07 11:52 | Outpatient (CLI) | payer MEDICARE, OTHER, SELFPAY ==
[2023-06-07 12:38] LABS: Add Urine Microscopic? YES; Bilirubin Urine Neg (Negative); Blood Urine 2+ (Negative); Glucose Urine UA Norm (Normal); Ketones Urine Negative (Negative); Leukocyte Esterase Urine 2+ (Negative); Nitrate Urine Positive (Negative); Protein Urine Neg (Negative); Specific Gravity, Urine 1.005 (1.005-1.030); Urine Appearance Cloudy (CLEAR); Urine Color Yellow (Yellow); Urobilinogen Urine Norm (Negative); pH Urine 6 (5-7)
[2023-06-07 12:41] LABS: Add Urine Culture? Yes; Bacteria Urine 3+ /hpf; Mucus Urine 1+ /hpf; Squamous Epithelial Cell Urine 0-4 /hpf (0-5); Transitional Epi Cells Urine 0-4 /hpf; WBC Urine TOO NUMEROUS TO CNT /hpf (0-5)
== END 2023-06-07 11:53 | disposition home or self-care (01) ==
LOC: LAB 11:56
PROVIDERS: PCP Nurse Practitioner; Visit Provider Nurse Practitioner
DX: E03.9 Hypothyroidism, unspecified (principal); E11.65 Type 2 diabetes mellitus with hyperglycemia; Z79.4 Long term (current) use of insulin; Z79.899 Other long term (current) drug therapy
CPT/HCPCS: 81001; 87077; 87086; 87186

== ENCOUNTER 2023-06-08 11:11 | Oncology outpatient (recurring) (ONCR) | payer MEDICARE, OTHER, SELFPAY ==
[2023-06-08 11:20] VITALS: BP 122/69; PULSE 71; RESP 16; TEMP 36.4; O2SAT 97
[2023-06-08 11:48] LABS: Alanine Aminotransferase 23 U/L (0-33); Albumin Level 4.4 g/dL (3.5-5.2); Alkaline Phosphatase 89 U/L (35-105); Anion Gap 14.5 (5-19); Aspartate Amino Transferase 27 U/L (0-32); Blood Urea Nitrogen 11 mg/dL (8-23); Calcium 9.4 mg/dL (8.5-10.5); Carbon Dioxide 30 mmol/L (22-29); Chloride 102 mmol/L (98-107); Chol HDL Ratio 4.79 mg/dL (0.0-4.40); Cholesterol 158 mg/dL (0-200); Globulin 2.8 g/dL (1.3-4.6); Glucose 92 mg/dL (65-115); HDL Cholesterol 33 mg/dL (60-100); LDL Cholesterol Calculated 73 mg/dL (50-129); Lactate Dehydrogenase 257 U/L (135-214); Osmolality Calculated 293 mOsm/kg (285-295); Potassium 4.5 mmol/L (3.5-5.1); Sodium 142 mmol/L (136-145); Total Bilirubin 0.3 mg/dL (0.15-1.2); Total Protein 7.2 g/dL (6.6-8.7); Triglycerides 258 mg/dL (0-150); VLDL Cholestrol Calculation 52 mg/dL (0-30)
[2023-06-08 11:52] LABS: Estmated Average Glucose 192; Hemoglobin A1C 8.3 % (4.0-6.0)
[2023-06-08 12:39] LABS: Hematocrit 45.6 % (36-47); Mean Corpuscular HGB Conc 33.1 g/dL (30-55); Mean Corpuscular Hemoglobin 29.7 pg (27-33); Mean Corpuscular Volume 89.8 fl (85-98); Mean Platelet Volume 9.3 fL (7.4-10.4); Platelet Count 238 10^3/cmm (157-399); Red Blood Count 5.08 10^6/uL (3.85-5.65); Red Cell Distribution Width 13.3 % (12.1-15.1)
[2023-06-08 12:42] LABS: White Blood Count 40.43 10^3/uL (3.29-11.43)
[2023-06-08 12:43] LABS: Slide Review Slide Review Perform
[2023-06-08 12:44] LABS: Total Cells Counted 100 (0-100)
[2023-06-08 12:48] LABS: Absolute Eosinophils 0.4 10^3/cmm (0.0-0.7); Absolute Segmented Neutrophil 6.1 10/cmm (1.6-7.1); Eosinophils 1 %; Lymphocytes 65 %; Monocytes Absolute 0.8 10^3/cmm (0.1-0.6); Segmented Neutrophils 15 %
[2023-06-08 12:49] LABS: Absolute Neutrophil 6.1 10^3/cmm (1.4-6.5); Lymphocytes Absolute 33.2 10^3/cmm (1.2-3.4); Platelet Estimate Normal (Normal)
== END 2023-06-08 23:59 | disposition home or self-care (01) ==
PROVIDERS: PCP Nurse Practitioner; Visit Provider Internal Medicine Medical Oncology
DX: Z08 Encounter for follow-up examination after completed treatment for malignant neoplasm (principal); Z85.6 Personal history of leukemia; D64.9 Anemia, unspecified; R59.0 Localized enlarged lymph nodes; R74.02 Elevation of levels of lactic acid dehydrogenase [LDH]; Z79.899 Other long term (current) drug therapy; Z87.891 Personal history of nicotine dependence; C91.10 Chronic lymphocytic leukemia of B-cell type not having achieved remission; R91.1 Solitary pulmonary nodule; R35.0 Frequency of micturition; R05.9 Cough, unspecified; R06.02 Shortness of breath; K59.00 Constipation, unspecified; R35.1 Nocturia; R42 Dizziness and giddiness; R30.0 Dysuria; Z79.2 Long term (current) use of antibiotics
CPT/HCPCS: 36415; 80053; 80061; 83036; 83615; 85007; 85025; 99214

== ENCOUNTER → 2023-08-08 10:58 | Outpatient (BNVA) | payer MEDICARE, OTHER, SELFPAY | PROVIDERS: PCP Nurse Practitioner; Visit Provider Podiatrist Foot & Ankle Surgery | DX: E11.65 Type 2 diabetes mellitus with hyperglycemia (principal); Z79.4 Long term (current) use of insulin; B35.1 Tinea unguium; E11.42 Type 2 diabetes mellitus with diabetic polyneuropathy; M20.10 Hallux valgus (acquired), unspecified foot; I73.9 Peripheral vascular disease, unspecified; G62.9 Polyneuropathy, unspecified | CPT/HCPCS: 11721; 81001; 87077; 87086; 87186 ==

== ENCOUNTER 2023-08-09 15:11 | Inpatient (IN) | payer MEDICARE, OTHER, SELFPAY ==
[2023-08-09] VITALS (10 sets, daily range): BP systolic 100–129; BP diastolic 43–69; PULSE 60–103; RESP 14–21; TEMP 36.4; O2SAT 92–97; BMI 28.3
--- NOTE | 2023-08-09 15:31 | XRR_ITS ---
PROCEDURE INFORMATION: Exam: XR Chest Exam date and time: 08/09/2023 4:04 PM Age: 83 years old Clinical indication: Other: Weakness; Prior surgery; Surgery date: 6+ months; Surgery type: Pacer, thyroid TECHNIQUE: Imaging protocol: Radiologic exam of the chest. Views: 1 view. COMPARISON: CT chest w con* [id number] 04/28/2023 10:20 AM FINDINGS: Tubes, catheters and devices: Cardiac ICD/pacemaker. Lungs: Bandlike opacity projects over the left lower chest most likely represents an area of scar or atelectasis. Pleural spaces: No pleural effusion. Heart/Mediastinum: Cardiomediastinal contours within normal limits. Bones/joints: No significant pathology. XR/XR chest 1V portable [id number] IMPRESSION: No acute pathology given AP technique.
--- NOTE | 2023-08-09 15:31 | ECG_ITS ---
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 Measurements Intervals [place] Rate: 66 P: 107 SC: 170 QRS: -51 QRSD: 93 T: 25 QT: 403 QTc: 424 Interpretive Statements ELECTRONIC ATRIAL PACEMAKER LOW QRS VOLTAGE IN PRECORDIAL LEADS [QRS DEFLECTION < 1.0 mV IN CHEST LEADS] PATTERN CONSISTENT WITH PULMONARY DISEASE INCOMPLETE RIGHT BUNDLE BRANCH BLOCK [90+ ms QRS DURATION, TERMINAL R IN V1/V2, 40+ ms S IN I/aVL/V4/V5/V6] LEFT ANTERIOR FASCICULAR BLOCK [QRS AXIS <= -45, QR IN I, RS IN II] MODERATE ST DEPRESSION [0.05+ mV ST DEPRESSION] Compared to ECG 08/15/2022 16:24:15 Low QRS voltage now present ST (T wave) deviation now present Electronically Signed On 08-09-2023 18:26:30 PUMP AND STILL OPERATOR by Colby Coello M.D. [id number]
--- NOTE | 2023-08-09 15:31 | CTR_ITS ---
PROCEDURE INFORMATION: Exam: CTA Head Without And With Contrast, Arteriography Exam date and time: 08/09/2023 5:46 PM Age: 83 years old Clinical indication: Weakness TECHNIQUE: Imaging protocol: Computed tomographic angiography of the head without and with contrast. Exam focused on the arteries. 3D rendering (Not supervised by radiologist): MIP and/or 3D reconstructed images were created by the technologist. Radiation optimization: All CT scans at this facility use at least one of these dose optimization techniques: automated exposure control; mA and/or kV adjustment per patient size (includes targeted exams where dose is matched to clinical indication); or iterative reconstruction. Contrast material: OMNI 350; Contrast volume: 100 ml; Contrast route: INTRAVENOUS (IV); COMPARISON: CT angio headneck* [id number] 02/26/2020 3:35 PM RADIATION DOSE METRICS: Total DLP (mGy-cm): 977 FINDINGS: ANTERIOR CIRCULATION: Right internal carotid artery: Intracranial segment is patent with no significant stenosis or occlusion. No aneurysm. Right middle cerebral artery: No occlusion or significant stenosis. No aneurysm. Right anterior cerebral artery: No occlusion or significant stenosis. No aneurysm. Left internal carotid artery: Intracranial segment is patent with no significant stenosis. No aneurysm. Left middle cerebral artery: No occlusion or significant stenosis. No aneurysm. Left anterior cerebral artery: No occlusion or significant stenosis. No aneurysm. POSTERIOR CIRCULATION: Right vertebral artery: No occlusion or significant stenosis. No aneurysm. Left vertebral artery: There is moderate focal stenosis of the V4 segment of the left vertebral artery secondary to soft and calcified plaque. Basilar artery: No occlusion or significant stenosis. No aneurysm. Right posterior cerebral artery: No occlusion or significant stenosis. No aneurysm. Left posterior cerebral artery: No occlusion or significant stenosis. No aneurysm. HEAD: Brain: Stable bilateral cerebellar calcifications are identified. There is mild to moderate small vessel disease. There is no evidence of acute parenchymal hemorrhage, extra-axial collection, or acute infarction. There is no mass effect, midline shift, or downward herniation. Cerebral ventricles: Normal. No ventriculomegaly. Bones/joints: There is an old questionable left occipital condyle fracture. Paranasal sinuses: Visualized sinuses are normal. No fluid levels. Mastoid air cells: Visualized mastoids are normal. No mastoid effusion. Soft tissues: Unremarkable. PROCEDURE INFORMATION: Exam: CTA Neck Without And With Contrast Exam date and time: 08/09/2023 5:46 PM Age: 83 years old Clinical indication: Weakness TECHNIQUE: Imaging protocol: Computed tomographic angiography of the neck without and with contrast. Exam focused on the cervical segments of the vasculature. 3D rendering (Not supervised by radiologist): MIP and/or 3D reconstructed images were created by the technologist. Radiation optimization: All CT scans at this facility use at least one of these dose optimization techniques: automated exposure control; mA and/or kV adjustment per patient size (includes targeted exams where dose is matched to clinical indication); or iterative reconstruction. Contrast material: OMNI 350; Contrast volume: 100 ml; Contrast route: INTRAVENOUS (IV); COMPARISON: CT angio headneck* [id number] 02/26/2020 3:35 PM RADIATION DOSE METRICS: Total DLP (mGy-cm): 977 FINDINGS: Right common carotid artery: No stenosis. No dissection or occlusion. Right internal carotid artery: There is mild stenosis of the proximal right internal carotid artery measuring less than 50% secondary to soft and calcified plaque. The remainder of the right internal carotid artery is patent. Right external carotid artery: No occlusion or stenosis of the origin. Left common carotid artery: There is mild to moderate plaque at the left carotid bulb and bifurcation. The left common carotid artery is otherwise patent. Left internal carotid artery: No stenosis. No dissection or occlusion. Left external carotid artery: No occlusion or stenosis of the origin. Right vertebral artery: No stenosis. No dissection or occlusion. Left vertebral artery: There is severe stenosis at the origin secondary to soft and calcified plaque. The remainder of the left vertebral artery is patent. Right subclavian artery: There is an aberrant right subclavian artery which is a normal anatomic variant. Left subclavian artery: There is mild stenosis of the proximal left subclavian artery secondary to soft and calcified plaque. Lymph nodes: There is bilateral axillary lymphadenopathy measuring up to 3 x 1.7 cm on the left and 1.6 x 1.4 cm on the right. Soft tissues: Normal. No significant soft tissue swelling. Bones/joints: No acute fracture. CT/CT angio headne* [id number] IMPRESSION: 1. Moderate focal stenosis of the left vertebral artery. 2. Otherwise patent [id number]. 3. Old questionable left occipital condyle fracture. IMPRESSION: 1. Mild stenosis of the proximal right internal carotid artery. 2. Mild stenosis of the proximal left subclavian artery. 3. Severe stenosis at the origin of the left vertebral artery without significant change. 4. Bilateral axillary lymphadenopathy. REFERENCES: NASCET CRITERIA. The degree of stenosis in the cervical segment of the internal carotid artery is based on NASCET criteria. Normal is no stenosis. Mild is less than 50% stenosis. Moderate is 50-69% stenosis. Severe is 70% to 99% stenosis. Total occlusion is no detectable patent lumen.
--- NOTE | 2023-08-09 15:32 | ED_ITS ---
HPI - Neuro Symptoms/Deficit 2 General: Chief Complaint: Neuro Symptoms/Deficit Stated Complaint: stoke symptoms, face and eye droop Time Seen by Provider: 08/09/23 15:25 Source: patient Mode of arrival: ambulatory Limitations: no limitations History of Present Illness: 83-year-old female who per family in [facility] has been having decline over the last few months she is extremely weak family states she is able to get up and transfer herself though last known normal was roughly last night states that when she woke up today she has been extremely weak and unable to stand unable to lift her legs. Family in the room said that they noticed had to she seemed to have a left-sided facial droop as well they just noticed today and did not notice last night but is since resolved patient states she just feels extremely weak she states she can barely even lift her arms. Associated symptoms: Reports malaise; Deny chest pain, headache(s), nausea or vomiting Review of Systems 2 Const: Reports: fatigue and malaise; Denies: fever(s), chills or body aches Eyes: Denies: blurry vision or eye discomfort ENMT: Denies: throat pain or dental pain Card: Denies: chest pain Resp: Denies: dyspnea GI: Denies: abdominal pain, nausea, vomiting or diarrhea : Denies: dysuria Musc: Denies: neck pain or back pain Skin/Breast: Denies: rash Neuro: Reports: weakness in extremities; Denies: headache(s) PFSH ED 2 PFSH: Medical History Atherosclerosis of cahto coronary artery without angina pectoris Chronic lymphocytic leukemia Urolithiasis Left ureteral calculus Myasthenia gravis UTI (urinary tract infection) Diabetes mellitus with hyperglycemia, with long-term current use of insulin Environmental and seasonal allergies Essential hypertension, benign Pneumonia Hyperlipidemia Vitamin D deficiency Vitamin B 12 deficiency COPD (chronic obstructive pulmonary disease) Depression with anxiety Hypothyroidism Neuropathy Surgical History History of basal cell carcinoma (BCC) excision History of hysterectomy with bilateral oophorectomy For cervical cancer History of appendectomy History of colonoscopy with polypectomy (11/17/21) Pacemaker 04/05/2019 H/O thyroidectomy Total thyroidectomy followed by radioactive iodine ablation for thyroid cancer H/O reduction of closed fracture left wrist 10/23/2015 Hx of cholecystectomy H/O brain surgery Craniotomy x 4 for meningioma H/O esophagogastroduodenoscopy (11/17/21) 2013 Family History Mother , AT 92 Anesthesia complication CAD (coronary artery disease) Cancer Dementia Stroke Brother CAD (coronary artery disease) Cancer Suicide Sister CAD (coronary artery disease) Suicide Grandmother Cancer Dementia Stroke Family/Other Cancer Dementia Stroke Brother Suicide Brother Suicide Father , IN HIS 60'S Alcoholic Liver disease Denies family history of Diabetes Clotting disorder Chronic kidney disease (CKD) Bleeding disorder Lung disease Social History Smoking and tobacco/nicotine status: former use of tobacco/nicotine Quit status (tobacco/nicotine): has quit using Year quit tobacco: 1997 Former quit date comment: 1 ppd X 45 years Second hand smoke exposure: No Alcohol intake: unknown Substance/Drug Use: unknown Adopted: No Caregiver/support person: Yes Lives independently: No Household members: family Housing: House Marital status: / Number of children: 2 service: No Current occupational status: retired Current occupational exposures/hazards: No Do you think of yourself as: Straight/Heterosexual Physical Exam 2 Const: COMMON NORMALS: patient oriented x3 GENERAL APPEARANCE: ill appearing and frail appearing HENMT: COMMON NORMALS: normocephalic and atraumatic HEAD & SCALP: n ormocephalic and atraumatic Eye: COMMON NORMALS: Equal, round and reactive pupils present and EOMs intact bilaterally VISUAL HENDERSON: No peripheral vision loss, No central vision loss, No left visual field cut, No right visual field cut, No bitemporal visual field cut, No binasal visual field cut and No visual field cut by quadrant PUPIL: Y es Equal, round and reactive pupils present Neck/C-Spine: COMMON NORMALS: full ROM and supple Chest: COMMONS NORMALS: normal inspection of the chest Resp: COMMON NORMALS: normal respiratory effort, No retractions, No use of accessory muscles and clear to auscultation bilaterally AUSCULTATION: clear to auscultation bilaterally Cardio: COMMON NORMALS: regular rate, regular rhythm and No murmurs present (Cardio) RATE: regular rate RHYTHM: regular rhythm Extremity: COMMON NORMALS: normal to inspection and full ROM Neuro: COMMON NORMALS: patient oriented x3 CRANIAL NERVES: Yes CN normal except as noted SPEECH: speech normal OTHER: Patient has global weakness she is not able to lift either legs against gravity has a difficult time lifting both arms Psych: COMMON NORMALS: mental status grossly normal, Normal thought process present and cooperative THOUGHT PROCESS: Normal thought process present Skin: COMMON NORMALS: no rashes or lesions noted and no wounds GENERAL SKIN EXAM: no rashes or lesions noted Course 2 Vital Signs: Vital signs: Vital Signs Pulse Rate 67 08/09/23 17:30 Respiratory Rate 16 08/09/23 17:30 Blood Pressure 101/43 08/09/23 17:30 Pulse Oximetry 95 08/09/23 17:30 Oxygen Delivery Me thod Nasal Cannula 08/09/23 16:45 Oxygen Flow Rate 2 08/09/23 16:45 MDM - Neuro Symptoms/Deficit Medical Decision Making Patient presents here with generalized weakness she has no focal deficits here last known normal was difficult from family she has been getting weaker they state for days she has no facial droop that they noticed earlier today she is not a tPA candidate as her last known well was days ago on my exam she is just generally weak with no focal deficits she does have a UTI could be causing her weakness will admit at this time Medical Records I reviewed the patient's medical records. Lab Data I reviewed the patient's lab results. 08/09/23 15:37 08/09/23 15:37 Radiology Impressions Chest X-Ray 08/09/23 15:31 IMPRESSION: No acute pathology given AP technique. Head/Neck CTA 08/09/23 15:31 IMPRESSION: 1. Moderate focal stenosis of the left vertebral artery. 2. Otherwise patent [id number]. 3. Old questionable left occipital condyle fracture. IMPRESSION: 1. Mild stenosis of the proximal right internal carotid artery. 2. Mild stenosis of the proximal left subclavian artery. 3. Severe stenosis at the origin of the left vertebral artery without significant change. 4. Bilateral axillary lymphadenopathy. REFERENCES: NASCET CRITERIA. The degree of stenosis in the cervical segment of the internal carotid artery is based on NASCET criteria. Normal is no stenosis. Mild is less than 50% stenosis. Moderate is 50-69% stenosis. Severe is 70% to 99% stenosis. Total occlusion is no detectable patent lumen. Laboratory Results WBC 48.40 10^3/uL (3.29-11.43) H* 08/09/23 15:37 RBC 4.63 10^6/uL (3.85-5.65) 08/09/23 15:37 Hgb 13.90 g/dL (11.27-16.99) 08/09/23 15:37 Hct 42.9 % (36-47) 08/09/23 15:37 MCV 92.7 fl (85-98) 08/09/23 15:37 MCH 30.0 pg (27-33) 08/09/23 15:37 MCHC 32.4 g/dL (30-55) 08/09/23 15:37 RDW 13.4 % (12.1-15.1) 08/09/23 15:37 Plt Count 154 10^3/cmm (157-399) L 08/09/23 15:37 MPV 8.9 fL (7.4-10.4) 08/09/23 15:37 Lymph % (Auto) Not Reportable 08/09/23 15:37 [place] % (Auto) Not Reportable 08/09/23 15:37 Lymph # (Auto) Not Reportable 08/09/23 15:37 [place] # (Auto) Not Reportable 08/09/23 15:37 PT 13.60 SECONDS (12.1-14.9) 08/09/23 15:37 INR 1.01 (0.8-1.2) 08/09/23 15:37 Sodium 143 mmol/L (136-145) 08/09/23 15:37 Potassium 4.1 mmol/L (3.5-5.1) 08/09/23 15:37 Chloride 101 mmol/L (98-107) 08/09/23 15:37 Carbon Dioxide 32 mmol/L (22-29) H 08/09/23 15:37 Anion Gap 14.1 (5-19) 08/09/23 15:37 BUN 15 mg/dL (8-23) 08/09/23 15:37 Creatinine 0.9 mg/dL (0.5-0.9) 08/09/23 15:37 GFR Calculation Not Reportable 08/09/23 15:37 Glucose 52 mg/dL (65-115) L 08/09/23 15:37 Calculated Osmolality 294 mOsm/kg (285-295) 08/09/23 15:37 Calcium 9.5 mg/dL (8.5-10.5) 08/09/23 15:37 Magnesium 2.4 mg/dL (1.7-2.3) H 08/09/23 15:37 Total Bilirubin 0.4 mg/dL (0.15-1.2) 08/09/23 15:37 AST 22 U/L (0-32) 08/09/23 15:37 ALT 11 U/L (0-33) 08/09/23 15:37 Alkaline Phosphatase 88 U/L (35-105) 08/09/23 15:37 Total Protein 7.1 g/dL (6.6-8.7) 08/09/23 15:37 Albumin 4.4 g/dL (3.5-5.2) 08/09/23 15:37 Globulin 2.7 g/dL (1.3-4.6) 08/09/23 15:37 TSH 0.86 uIU/mL (0.27-4.20) 08/09/23 15:37 Urine Color Light yellow (Yellow) 08/09/23 17:17 Urine Appearance Cloudy (CLEAR) A 08/09/23 17:17 Urine pH 6 (5-7) 08/09/23 17:17 Ur Specific [place] 1.015 (1.005-1.030) 08/09/23 17:17 Urine Protein Trace (Negative) 08/09/23 17:17 Urine Glucose (UA) Norm (Normal) 08/09/23 17:17 Urine Ketones Negative (Negative) 08/09/23 17:17 Urine Blood 2+ (Negative) H 08/09/23 17:17 Urine Nitrate Positive (Negative) H 08/09/23 17:17 Urine Bilirubin Neg (Negative) 08/09/23 17:17 Urine Urobilinogen Norm mg/dL (Negative) 08/09/23 17:17 Ur Leukocyte Esterase 2+ (Negative) H 08/09/23 17:17 Urine RBC 5-10 /hpf (0-2) H 08/09/23 17:17 Urine WBC Too numerous to cnt /hpf (0-5) H 08/09/23 17:17 Ur Squamous Epith Cells 0-4 /hpf (0-5) H 08/09/23 17:17 Amorphous Sediment Not Reportable 08/09/23 17:17 Urine Bacteria 2+ /hpf (NONE) H 08/09/23 17:17 Urine Mucus 1+ /hpf 08/09/23 17:17 All radiology interpretation(s) finalized by discharge EKG Data EKG 1: I personally reviewed and interpreted this EKG as follows: EKG interpretation date: 08/09/23 EKG interpretation time: 15:24 Interpretation: hr [address] or t wave abnormalities qrs 93 qtc 417 Discharge Plan Discharge Patient Disposition: Admitted As Inpatient Clinical Impression: Acute cystitis, Weakness Condition: Stable Prescriptions: No Action (DME) lancets [TRUEplus Lancets] 33 gauge misc See Rx Instructions .Route Qty: 100 5RF Rx Instructions: use one 3 times day (DME) Cognitive Match William 2 [place] Misc See Rx Instructions .ROUTE .MEDSUPPLY Qty: 1 0RF Rx Instructions: As directed albuterol sulfate [Proventil HFA] 90 mcg/actuation HFA aerosol inhaler 2 puff INHALATION QID PRN (Reason: Shortness Of Breath) Qty: 6.7 1RF albuterol sulfate 2.5 mg /3 mL (0.083 %) solution for nebulization 2.5 mg inhalation QID PRN (Reason: shortness of breath or wheezing) Qty: 360 3RF diazepam 2 mg tablet 2 mg PO TID PRN (Reason: muscle spasm) Qty: 60 2RF medical marijuana capsule See Rx Instructions .ROUTE .COMPLEX Rx Instructions: USE DIRECTED furosemide 20 mg tablet 20 mg PO BID PRN (Reason: edema) Qty: 180 1RF tolterodine [Detrol] 2 mg tablet 2 mg PO DAILY Qty: 90 1RF (DME) Power chair repair See Rx Instructions .Route .MEDSUPPLY Qty: 1 0RF Rx Instructions: Repair power chair and maintenance (DME) pen needle, diabetic, safety [DropSafe Pen Needle] 31 gauge x 3/16 needle See Rx Instructions .Route Qty: 300 2RF Rx Instructions: use 4 day simvastatin 20 mg tablet 20 mg PO BEDTIME Qty: 90 1RF insulin aspart U-100 [Novolog FlexPen U-100 Insulin] 100 unit/mL (3 mL) insulin pen See Rx Instructions SUBCUT TID Qty: 15 2RF Rx Instructions: 110-129=3U 130-150=6U 151-200=9U 201-250=12U 251-300=15U 301-350=18U 351- 400=21U >400=24U SUBCUT three times daily; (DME) FreeStyle William 2 Sensor Kit See Rx Instructions .ROUTE .MEDSUPPLY Qty: 2 11RF Rx Instructions: change every 14 days Airborne Gummy 250-11.66 mg tablet,chewable 1 tab PO DAILY aspirin 81 mg tablet,delayed release (DR/EC) 81 mg PO QAM levothyroxine 88 mcg tablet 88 mcg PO QAM Toujeo Max U-300 SoloStar 300 unit/mL (3 mL) insulin pen See Rx Instructions .ROUTE .COMPLEX Rx Instructions: INJECT up to 80 UNITS subcutaneously daily. Breztri Aerosphere 160-9-4.8 mcg/actuation HFA aerosol inhaler 2 inh inhalation BID PRN (Reason: Shortness Of Breath) Referrals: Adam Anguiano, MACHINE LAY OUT WORKER-C [Primary Care Provider] - Coding Level of Care Code ED Plant Clerk for Kina Jackson
[2023-08-09 15:49] LABS: Hematocrit 42.9 % (36-47); Mean Corpuscular HGB Conc 32.4 g/dL (30-55); Mean Corpuscular Volume 92.7 fl (85-98); Mean Platelet Volume 8.9 fL (7.4-10.4); Platelet Count 154 10^3/cmm (157-399); Red Blood Count 4.63 10^6/uL (3.85-5.65); Red Cell Distribution Width 13.4 % (12.1-15.1)
[2023-08-09 15:57] LABS: INR 1.01 (0.8-1.2)
[2023-08-09 16:11] LABS: Alanine Aminotransferase 11 U/L (0-33); Albumin Level 4.4 g/dL (3.5-5.2); Alkaline Phosphatase 88 U/L (35-105); Anion Gap 14.1 (5-19); Aspartate Amino Transferase 22 U/L (0-32); Blood Urea Nitrogen 15 mg/dL (8-23); Calcium 9.5 mg/dL (8.5-10.5); Carbon Dioxide 32 mmol/L (22-29); Chloride 101 mmol/L (98-107); Globulin 2.7 g/dL (1.3-4.6); Glucose 52 mg/dL (65-115); Magnesium 2.4 mg/dL (1.7-2.3); Osmolality Calculated 294 mOsm/kg (285-295); Potassium 4.1 mmol/L (3.5-5.1); Sodium 143 mmol/L (136-145); Thyroid Stimulating Hormone 0.86 uIU/mL (0.27-4.20); Total Bilirubin 0.4 mg/dL (0.15-1.2); Total Protein 7.1 g/dL (6.6-8.7)
[2023-08-09] MEDS: sodium chloride 0.9% 500 ML IV (16:18)
[2023-08-09 16:35] LABS: Slide Review Slide Review Perform
[2023-08-09] MEDS: iohexol 350 mg/mL 500 mL Btl (per mL) IV (17:56)
[2023-08-09 18:06] LABS: Add Urine Microscopic? YES; Bilirubin Urine Neg (Negative); Blood Urine 2+ (Negative); Glucose Urine UA Norm (Normal); Ketones Urine Negative (Negative); Leukocyte Esterase Urine 2+ (Negative); Nitrate Urine Positive (Negative); Protein Urine Trace (Negative); Specific Gravity, Urine 1.015 (1.005-1.030); Urine Appearance Cloudy (CLEAR); Urine Color Light yellow (Yellow); Urobilinogen Urine Norm (Negative); pH Urine 6 (5-7)
[2023-08-09 18:12] LABS: Add Urine Culture? Yes; Bacteria Urine 2+ /hpf; Mucus Urine 1+ /hpf; Squamous Epithelial Cell Urine 0-4 /hpf (0-5); WBC Urine TOO NUMEROUS TO CNT /hpf (0-5)
[2023-08-09] MEDS: cefTRIAXone 1,000 MG in sodium chloride 0.9% (plus) 50 ML 100 MG IV (18:41)
[2023-08-09 20:10] LABS: Total Cells Counted 100 (0-100)
[2023-08-09 20:15] LABS: Absolute Segmented Neutrophil 3.9 10/cmm (1.6-7.1); Eosinophils 2 %; Lymphocytes 53 %; Lymphocytes Absolute 39.2 10^3/cmm (1.2-3.4); Monocytes Absolute 4.4 10^3/cmm (0.1-0.6); Segmented Neutrophils 8 %
[2023-08-09 20:16] LABS: Absolute Neutrophil 3.9 10^3/cmm (1.4-6.5); Platelet Estimate Decreased (Normal)
--- NOTE | 2023-08-09 20:58 | XRR_ITS ---
PROCEDURE INFORMATION: Exam: XR Cervical Spine Exam date and time: 08/09/2023 10:41 PM Age: 83 years old Clinical indication: Neck pain TECHNIQUE: Imaging protocol: Radiologic exam of the cervical spine. Views: 2 or 3 views. COMPARISON: CT cervical spine w con [id number] 04/28/2023 10:20 AM FINDINGS: Limitations: Lower cervical spine not well seen in the lateral projection. Bones/joints: Bones are moderately osteopenic. No fracture is identified. There is some degenerative change in the lower cervical spine with intervertebral disc space narrowing. Degenerative changes are seen in facet joints bilaterally at multiple levels. Soft tissues: Unremarkable. XR/XR cervical spine 3V* [id number] IMPRESSION: Osteopenia and degenerative changes. No fracture is identified.
--- NOTE | 2023-08-09 20:58 | XRR_ITS ---
PROCEDURE INFORMATION: Exam: XR Right Ankle Exam date and time: 08/09/2023 10:48 PM Age: 83 years old Clinical indication: Injury or trauma; Fall; Other: Unknown TECHNIQUE: Imaging protocol: Radiologic exam of the right ankle. Views: 1 or 2 views. COMPARISON: CR (LOW EXM, ) 08/09/2023 10:48 PM FINDINGS: Bones/joints: Bones are moderately osteopenic. There is evidence of fracture or dislocation or significant bone abnormality. Soft tissues: Normal. XR/XR ankle RT 2V [id number] IMPRESSION: No acute fracture.
--- NOTE | 2023-08-09 20:58 | XRR_ITS ---
PROCEDURE INFORMATION: Exam: XR Right Shoulder Exam date and time: 08/09/2023 10:48 PM Age: 83 years old Clinical indication: Pain; Shoulder; Right TECHNIQUE: Imaging protocol: Radiologic exam of the right shoulder. Views: 2 or more views. COMPARISON: CR (NECK, ) 08/09/2023 10:41 PM FINDINGS: Bones/joints: Bones are moderately osteopenic. There is no evidence of fracture or dislocation. There is some degenerative change in the acromioclavicular joint. Lungs: There is a small calcified granuloma in the right lung. Soft tissues: Normal. XR/XR shoulder RT min 2V* [id number] IMPRESSION: Osteopenia. No acute fracture identified.
--- NOTE | 2023-08-09 20:58 | XRR_ITS ---
PROCEDURE INFORMATION: Exam: XR Right Foot Exam date and time: 08/09/2023 10:48 PM Age: 83 years old Clinical indication: Pain; Foot; Right; Additional info: Pain fall TECHNIQUE: Imaging protocol: Radiologic exam of the right foot. Views: 1 or 2 views. COMPARISON: CR (LOW EXM, ) 08/09/2023 10:48 PM FINDINGS: Bones/joints: Bones are moderately osteopenic. There is hallux valgus deformity with degenerative changes in the 1st metatarsophalangeal joint and prominent bunion. No fracture is identified. Soft tissues: Normal. XR/XR foot RT 2V [id number] IMPRESSION: Degenerative changes. No fracture is identified.
--- NOTE | 2023-08-09 21:05 | P.HP_ITS ---
Providers/Chief Complaint 2 Admitting Physician: Rose Marie Moreno MD Primary Care Provider: Adam Anguiano, [employer] Chief Complaint: stoke symptoms, face and eye droop History of Present Illness Felicitas Augustine is a 83 year old female with a past medical history of chronic lymphocytic leukemia, with history of lymphadenopathy with biopsy, currently not on treatment, history of myasthenia, history of endometrial cancer, history of brainstem tumor, insulin-dependent type 2 diabetes mellitus, hypothyroidism, history of recurrent UTIs, who presents to [facility] due to weakness, fatigue, poor appetite, acute on chronic confusion. Currently patient alert to person, to place, not to time she can follow all commands, no facial droop no slurring of words no focal weakness or complaint is is that a few days ago she fell and she twisted her right ankle her right ankle is hurting her right foot is hurting her and she has acute on chronic and right neck pain and right shoulder pain, denies any chest pain, shortness of breath no abdominal pain, no dysuria, no flank pain, she does report poor appetite, patient's son at bedside, who patient lives with tells me that she has been slowly declining for the last few months, increasingly confused at times, less mobile, she is completely wheelchair-bound, less ambulatory, he has a hospital bed for her, requires assistance activities of daily living, initially there was concerns for left-sided facial droop, on my examination and a stroke scale is 0, she had a stroke evaluation in the emergency room, CTA head and neck had no acute evidence of bleed, but did show left vertebral artery stenosis Review of Systems 2 Const: Reports: fatigue and malaise; Denies: fever(s) or chills Card: Denies: chest pain Resp: Denies: dyspnea GI: Denies: abdominal pain Medications/Allergies Home Medications Medication Instructions Recorded Confirmed Last Taken Type lancets 33 gauge (TRUEplus Lancets) #100 ea 12/23/20 08/09/23 01/13/23 Rx flash glucose scanning reader #1 ea 01/12/22 08/09/23 01/13/23 Rx (FreeStyle William 2 [place]) medical marijuana See Rx Instructions .Route .COMPLEX 04/06/22 08/09/23 01/16/23 History Power chair repair #1 ea 09/27/22 08/09/2323 Rx cqkfxmzk-cscwmwcw-zdu C 250 1 tab PO DAILY 11/07/22 08/09/23 08/09/23 History mg-herbal no.124 11.66 mg chewable tablet (Airborne Gummy) albuterol sulfate 2.5 mg/3 mL 2.5 mg (3 mL) inhalation QID PRN 02/23/23 08/09/23 Unknown Rx (0.083 %) solution for nebulization shortness of breath or wheezing #360 mL albuterol sulfate 90 mcg/actuation 2 puff inhalation QID PRN 03/10/23 08/09/23 Unknown Rx aerosol inhaler (Proventil HFA) Shortness Of Breath #6.7 grams pen needle, diabetic, safety 31 #300 ea 03/19/23 08/09/23 Unknown Rx gauge x 3/16 (DropSafe Pen Needle) diazepam 2 mg tablet 2 mg PO TID PRN muscle spasm #60 04/13/23 08/09/23 Unknown Rx tabs insulin aspart U-100 100 unit/mL See Rx Instructions SUBCUT TID #15 05/18/23 08/09/23 08/09/23 Rx (3 mL) subcutaneous pen (Novolog mL FlexPen U-100 Insulin aspart) simvastatin 20 mg tablet 20 mg PO BEDTIME #90 tabs 05/18/23 08/09/23 08/08/23 Rx furosemide 20 mg tablet 20 mg PO BID PRN edema #180 tabs 05/27/23 08/09/23 Unknown Rx tolterodine 2 mg tablet (Detrol) 2 mg PO DAILY urinary frequency 05/27/23 08/09/23 08/09/23 Rx #90 tabs flash glucose sensor (FreeStyle #2 ea 07/17/23 08/09/23 Unknown Rx William 2 Sensor kit) aspirin 81 mg tablet,delayed 81 mg PO QAM 08/09/23 08/09/23 08/09/23 History release budesonide 160 mcg-glycopyr 9 2 inh inhalation BID PRN Shortness 08/09/23 08/09/23 Unknown History mcg-formot 4.8 mcg/actuation HFA Of Breath inhaler (Breztri Aerosphere) insulin glargine U-300 conc 300 See Rx Instructions .Route .COMPLEX 08/09/23 08/09/23 08/09/23 History unit/mL (3 mL) subcutaneous pen (Toujeo Max U-300 SoloStar) levothyroxine 88 mcg tablet 88 mcg PO QAM 08/09/23 08/09/23 08/09/23 History Allergies Allergy/AdvReac Type Severity Reaction Status Date / Time Sulfa (Sulfonamide Allergy RASH Verified 08/08/23 10:29 Antibiotics) PNEUMONIA VACCINE Allergy ALGY-Rash Uncoded 08/08/23 10:29 PFSH Acute 2 PFSH: Medical History Atherosclerosis of [place] coronary artery without angina pectoris Chronic lymphocytic leukemia Urolithiasis Left ureteral calculus Myasthenia gravis UTI (urinary tract infection) Diabetes mellitus with hyperglycemia, with long-term current use of insulin Environmental and seasonal allergies Essential hypertension, benign Pneumonia Hyperlipidemia Vitamin D deficiency Vitamin B 12 deficiency COPD (chronic obstructive pulmonary disease) Depression with anxiety Hypothyroidism Neuropathy Surgical History History of basal cell carcinoma (BCC) excision History of hysterectomy with bilateral oophorectomy For cervical cancer History of appendectomy History of colonoscopy with polypectomy (11/17/21) Pacemaker 04/05/2019 H/O thyroidectomy Total thyroidectomy followed by radioactive iodine ablation for thyroid cancer H/O reduction of closed fracture left wrist 10/23/2015 Hx of cholecystectomy H/O brain surgery Craniotomy x 4 for meningioma H/O esophagogastroduodenoscopy (11/17/21) 2013 Family History Mother , AT 92 Anesthesia complication CAD (coronary artery disease) Cancer Dementia Stroke Brother CAD (coronary artery disease) Cancer Suicide Sister CAD (coronary artery disease) Suicide Grandmother Cancer Dementia Stroke Family/Other Cancer Dementia Stroke Brother Suicide Brother Suicide Father , IN HIS 60'S Alcoholic Liver disease Denies family history of Diabetes Clotting disorder Chronic kidney disease (CKD) Bleeding disorder Lung disease Social History Smoking and tobacco/nicotine status: former use of tobacco/nicotine Quit status (tobacco/nicotine): has quit using Year quit tobacco: 1997 Former quit date comment: 1 ppd X 45 years Second hand smoke exposure: No Alcohol intake: unknown Substance/Drug Use: unknown Adopted: No Caregiver/support person: Yes Lives independently: No Household members: family Housing: House Marital status: / Number of children: 2 service: No Current occupational status: retired Current occupational exposures/hazards: No Do you think of yourself as: Straight/Heterosexual Vitals/I&O/Wt Last Vital Signs Pulse 103 H 08/09/23 19:56 Resp 14 08/09/23 19:56 BP 114/46 08/09/23 19:56 Pulse Ox 92 08/09/23 19:56 O2 Del Method Nasal Cannula 08/09/23 16:45 O2 Flow Rate 2 08/09/23 16:45 08/09/23 08/09/23 08/09/23 06:59 14:59 22:59 Intake Total 500 / 500 Balance 500 / 500 Weight last 48 hrs Weight 72.575 kg Weight 72.575 kg Physical Exam 2 Const: COMMON NORMALS: no acute distress ORIENTATION/CONSCIOUSNESS: Yes awake, Yes oriented to person and Yes oriented to place; not oriented to time HENMT: COMMON NORMALS: normocephalic HEAD & SCALP: normocephalic Eye: COMMON NORMALS: Equal, round and reactive pupils present and EOMs intact bilaterally Resp: COMMON NORMALS: normal respiratory effort, No retractions, No use of accessory muscles and clear to auscultation bilaterally AUSCULTATION: clear to auscultation bilaterally Cardio: COMMON NORMALS: regular rate, regular rhythm, S1 normal heart sound present and S2 normal heart sound present RATE: regular rate RHYTHM: r egular rhythm HEART SOUNDS: S1 normal heart sound present and S2 normal heart sound present GI: COMMON NORMALS: Normal to inspection, nondistended, normoactive bowel sounds present, Soft to palpation and non-tender Extremity: COMMON NORMALS: no calf tenderness and no pedal edema Neuro: COMMON NORMALS: CN's II-XII intact bilaterally, moves all extremities and no focal motor deficits Psych: COMMON NORMALS: mental status grossly normal Data 08/09/23 15:37 08/09/23 15:37 A&P Assessment and plan (1) Acute encephalopathy: (2) Generalized weakness: (3) Urinary tract infection: (4) Diabetes mellitus with hyperglycemia, with long-term current use of insulin: Qualifiers: Diabetes mellitus type: type 2 Qualified Code(s): E11.65 - Type 2 diabetes mellitus with hyperglycemia; 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 insulin (5) Hypothyroidism: Qualifiers: Hypothyroidism type: acquired Qualified Code(s): E03.9 - Hypothyroidism, unspecified (6) Myasthenia gravis: Plan Acute encephalopathy -Likely sec to UTI -Neurochecks, aspiration precautions, night stroke scale -Speech therapy eval Urinary tract infection -Continue Rocephin Generalized weakness -Urine cultures, blood cultures, troponin series, TSH, mag, Phos -PT OT Hypothyroidism -Check TSH Type 2 diabetes mellitus, moderate.-dose sliding scale full code lovenox for dvt prophylaxis Attestations 2 Medical Necessity Statement*: Patient requires hospitalization, inpatient, greater than 2 midnights, for UTI, generalized weakness, acute encephalopathy Diagnoses Acute encephalopathy G93.40 Generalized weakness R53.1 Urinary tract infection N39.0 Type 2 diabetes mellitus with hyperglycemia, with long-term current use of insulin E11.65; Z79.4 Diabetes mellitus type: type 2 Acquired hypothyroidism E03.9 Hypothyroidism type: acquired Myasthenia gravis G70.00
[2023-08-09 22:32] LABS: Procalcitonin 0.05 ng/mL (0-0.5)
[2023-08-09 22:32] LABS: Glucose Point of Care 55 mg/dL (70-110)
[2023-08-09 23:05] LABS: Troponin(5th) Baseline 8 ng/L (0-10)
[2023-08-09] MEDS: pantoprazole 40 mg SDV IVP (23:05)
[2023-08-09] MEDS: dextrose 50% syringe 50 mL IVP (23:06)
[2023-08-09] MEDS: enoxaparin 40 mg/0.4 mL Syringe SUBCUT (23:06)
[2023-08-09] MEDS: dextrose 5%-sod chloride 0.9% 1,000 ML 100 ML IV (23:18)
[2023-08-10] VITALS (11 sets, daily range): BP systolic 98–132; BP diastolic 48–73; PULSE 53–92; RESP 14–20; TEMP 36.4–36.8; O2SAT 97–98; BMI 28.3
[2023-08-10 00:10] LABS: Glucose Point of Care 130 mg/dL (70-110)
[2023-08-10 00:31] LABS: Troponin 5 2HR 7.17 ng/L (0-10)
[2023-08-10 00:32] LABS: Troponin 5 2HR Delta -0.83 ABS# (0-10)
[2023-08-10 02:20] LABS: Adenovirus Not Detected (NOT DETECT); Chlamydia Pneumoniae Not Detected (NOT DETECT); Coronavirus 229E,HKU1,NL63,OC4 Not Detected (NOT DETECT); Human Metapneumovirus Not Detected (NOT DETECT); Human Rhinovirus/Enterovirus Not Detected (NOT DETECT); Influenza A Not Detected (NOT DETECT); Influenza A H1 Not Detected (NOT DETECT); Influenza A H1-2009 Not Detected (NOT DETECT); Influenza A H3 Not Detected (NOT DETECT); Influenza B Not Detected (NOT DETECT); Mycoplasma Pneumoniae Not Detected (NOT DETECT); Parainfluenza Virus Type 1 Not Detected (NOT DETECT); Parainfluenza Virus Type 2 Not Detected (NOT DETECT); Parainfluenza Virus Type 3 Not Detected (NOT DETECT); Parainfluenza Virus Type 4 Not Detected (NOT DETECT); Respiratory Syncytial Virus A Not Detected (NOT DETECT); Respiratory Syncytial Virus B Not Detected (NOT DETECT); SARS-COV-2 Not Detected (NOT DETECT)
[2023-08-10 02:44] LABS: Hematocrit 35.1 % (36-47); Mean Corpuscular HGB Conc 32.5 g/dL (30-55); Mean Corpuscular Hemoglobin 29.7 pg (27-33); Mean Corpuscular Volume 91.4 fl (85-98); Mean Platelet Volume 9.1 fL (7.4-10.4); Platelet Count 139 10^3/cmm (157-399); Red Blood Count 3.84 10^6/uL (3.85-5.65); Red Cell Distribution Width 13.6 % (12.1-15.1)
[2023-08-10 02:56] LABS: Alanine Aminotransferase 9 U/L (0-33); Albumin Level 3.5 g/dL (3.5-5.2); Alkaline Phosphatase 69 U/L (35-105); Anion Gap 11.6 (5-19); Aspartate Amino Transferase 16 U/L (0-32); Blood Urea Nitrogen 12 mg/dL (8-23); Calcium 8.4 mg/dL (8.5-10.5); Carbon Dioxide 27 mmol/L (22-29); Chloride 106 mmol/L (98-107); Creatinine Clr Calc Pharmacy 52.6488; Glucose 193 mg/dL (65-115); Magnesium 2.2 mg/dL (1.7-2.3); Osmolality Calculated 297 mOsm/kg (285-295); Phosphorus 3.9 mg/dL (2.5-4.5); Potassium 3.6 mmol/L (3.5-5.1); Sodium 141 mmol/L (136-145); Total Bilirubin 0.3 mg/dL (0.15-1.2); Total Protein 5.5 g/dL (6.6-8.7)
[2023-08-10 03:00] LABS: Troponin 5 6HR 8.56 ng/L (0-10); Troponin 5 6HR Delta 0.56 ng/L (0-12)
[2023-08-10 03:09] LABS: Chol HDL Ratio 3.41 mg/dL (0.0-4.40); Cholesterol 92 mg/dL (0-200); HDL Cholesterol 27 mg/dL (60-100); LDL Cholesterol Calculated 43 mg/dL (50-129); LDL HDL Ratio 1.59 RATIO (0.00-3.22); NT Pro B Type Natriuretic Pept 157 pg/mL (0-450); Triglycerides 110 mg/dL (0-150)
[2023-08-10 03:13] LABS: Slide Review Slide Review Perform
[2023-08-10 03:14] LABS: Absolute Segmented Neutrophil 5.4 10/cmm (1.6-7.1); Eosinophils 0 %; Lymphocytes 40 %; Lymphocytes Absolute 45.2 10^3/cmm (1.2-3.4); Monocytes Absolute 3.2 10^3/cmm (0.1-0.6); Platelet Estimate Decreased (Normal); Segmented Neutrophils 10 %; Smudge Cells 1+; Total Cells Counted 100 (0-100)
[2023-08-10 03:15] LABS: White Blood Count 53.83 10^3/uL (3.29-11.43)
[2023-08-10 03:31] LABS: Estmated Average Glucose 137; Hemoglobin A1C 6.4 % (4.0-6.0)
[2023-08-10] MEDS: levothyroxine 88 mcg Tablet PO (05:23)
[2023-08-10] MEDS: aspirin 81 mg EC Tablet PO (05:23)
[2023-08-10 07:07] LABS: Glucose Point of Care 135 mg/dL (70-110)
[2023-08-10] MEDS: budesonide 0.5 mg/2 mL Neb INHALATION ×2 (08:25→21:17)
[2023-08-10] MEDS: albuterol 2.5 mg/3 mL Neb INHALATION ×2 (08:25→21:17)
[2023-08-10] MEDS: dextrose 5%-sod chloride 0.9% 1,000 ML 100 ML IV ×2 (09:47→19:57)
[2023-08-10] MEDS: morphine 4 mg/mL SDV 1 mL 2 MG IVP ×2 (09:48→10:45)
[2023-08-10 11:58] LABS: Glucose Point of Care 184 mg/dL (70-110)
[2023-08-10] MEDS: insulin lispro 100 unit/1 mL SUBCUT ×2 (12:07→17:17)
[2023-08-10 16:48] LABS: Glucose Point of Care 239 mg/dL (70-110)
--- NOTE | 2023-08-10 16:52 | CTR_ITS ---
PROCEDURE INFORMATION: Exam: CT Cervical Spine Without Contrast Exam date and time: 08/10/2023 9:47 PM Age: 83 years old Clinical indication: Neck pain; Additional info: Severe pain post R neck/back TECHNIQUE: Imaging protocol: Computed tomography of the cervical spine without contrast. Radiation optimization: All CT scans at this facility use at least one of these dose optimization techniques: automated exposure control; mA and/or kV adjustment per patient size (includes targeted exams where dose is matched to clinical indication); or iterative reconstruction. COMPARISON: 1. CT cervical spine w con 04/28/2023 10:[address] angio headneck* 08/09/2023 5:46 PM 3. CR (NECK, ) 08/09/2023 10:41 PM RADIATION DOSE METRICS: Total DLP (mGy-cm): 160 FINDINGS: Bones/joints: Bones are diffusely demineralized. Normal alignment. No acute fracture or subluxation. Stable chronic deformity of the left occipital bone with adjacent soft tissue calcifications, suggesting remote trauma. Status post C1, C2, and C3 laminectomies. Stable gdhcovgf-no-slsoyu chronic degenerative changes without severe spinal stenosis. Brain: A stable subcentimeter hyperdense extra-axial mass on the left side anterolateral to the inferior cookie. Lungs: Minimal biapical scarring. Soft tissues: Paravertebral soft tissues demonstrate no acute abnormality. CT/CT cervical spin wo con* [id number] IMPRESSION: 1. No acute abnormality. 2. Stable chronic deformity of the left occipital bone with adjacent soft tissue calcifications, suggesting remote trauma. 3. Status post C1, C2, and C3 laminectomies. 4. Stable oeniqabw-il-yviycx chronic degenerative changes without severe spinal stenosis. 5. A stable subcentimeter hyperdense extra-axial mass on the left side anterolateral to the inferior cookie. Favor meningioma.
[2023-08-10] MEDS: cefTRIAXone 1,000 MG in sodium chloride 0.9% (plus) 50 ML 100 MG IV (17:18)
[2023-08-10] MEDS: pantoprazole 40 mg SDV IVP (21:13)
[2023-08-10] MEDS: atorvastatin 40 mg Tablet 20 MG PO (21:13)
[2023-08-10] MEDS: enoxaparin 40 mg/0.4 mL Syringe SUBCUT (21:13)
[2023-08-10] MEDS: acetaminophen 325 mg Tablet 650 MG PO (21:17)
[2023-08-10 21:30] LABS: Glucose Point of Care 113 mg/dL (70-110)
--- NOTE | 2023-08-10 23:07 | PM.PN ---
Subjective Subjective: She is having quite a lot of pain she states in her right shoulder ever since falling in June but currently quite severe even on limited range of motion, although on further investigation it appears to be in her right side posterior neck. Additionally has been having issues with pain in her right foot/ankle ever since falling, has been making it difficult for her to ambulate. Vitals/I&O/Wt Last Vital Signs Temp 98.2 F 08/10/23 20:00 Pulse 67 08/10/23 20:00 Resp 17 08/10/23 20:00 BP 132/59 08/10/23 20:00 Pulse Ox 97 08/10/23 20:00 O2 Del Method Nasal Cannula 08/10/23 20:00 O2 Flow Rate 2 08/10/23 20:00 08/10/23 08/10/23 08/11/23 14:59 22:59 06:59 Intake Total 1480 / 1480 1290 / 2770 Balance 1480 / 1480 1290 / 2770 Weight last 48 hrs Weight 72.62 kg Weight 72.575 kg Weight 72.575 kg Physical Exam Narrative: Visited by son. Const: COMMON NORMALS: patient oriented x3 and alert GENERAL APPEARANCE: cooperative ORIENTATION/CONSCIOUSNESS: Yes awake HENMT: COMMON NORMALS: oropharynx normal Neck/C-Spine: COMMON NORMALS: no JVD OTHER: Pain posterior right cervical spine/upper back. Pain on passive range of motion. No erythema, no visible swelling. Resp: COMMON NORMALS: normal respiratory effort and clear to auscultation bilaterally AUSCULTATION: clear to auscultation bilaterally Cardio: COMMON NORMALS: no JVD, regular rhythm, S1 normal heart sound present, S2 normal heart sound present and No murmurs present (Cardio) RHYTHM: regular rhythm HEART SOUNDS: S1 normal heart sound present and S2 normal heart sound present GI: COMMON NORMALS: Normal to inspection, nondistended, normoactive bowel sounds present, Soft to palpation and non-tender PALPATION: Yes Soft to palpation Extremity: COMMON NORMALS: no joint enlargement and no pedal edema Neuro: COMMON NORMALS: patient oriented x3 and moves all extremities SENSORIUM/ORIENTATION: Yes alert Skin: COMMON NORMALS: no rashes or lesions noted GENERAL SKIN EXAM: no rashes or lesions noted Data 08/10/23 02:24 08/10/23 02:24 A&P Assessment and plan (1) Acute encephalopathy: (2) Generalized weakness: (3) Urinary tract infection: (4) Diabetes mellitus with hyperglycemia, with long-term current use of insulin: Qualifiers: Diabetes mellitus type: type 2 Qualified Code(s): E11.65 - Type 2 diabetes mellitus with hyperglycemia; Z79.4 - custodial (current) use of insulin (5) Hypothyroidism: Qualifiers: Hypothyroidism type: acquired Qualified Code(s): E03.9 - Hypothyroidism, unspecified (6) Myasthenia gravis: Plan Acute encephalopathy: With improvement. Continue treatment of urinary tract infection. Condition assessment of severe pain in the posterior right neck. Reviewed vitals, CBC, CMP, troponin series, respiratory viral panel. -Neurochecks, aspiration precautions, night stroke scale -Speech therapy eval. Discussed with speech therapist. Diet adjusted. Severe pain posterior right neck: Requiring IV morphine. No swelling, erythema. On passive range of motion pain appears to be in the posterior right neck as opposed to the shoulder as she was initially thinking. Growing slowly no significant pain on passive range of motion of the right shoulder. Additional assessment requested with CT cervical spine. Add lidocaine patch. Reviewed shoulder x-ray. Urinary tract infection -Continue Rocephin. Follow-up urine culture. Generalized weakness. Stop IV fluid. -Reviewed urine cultures, blood cultures, troponin series, TSH, mag, Phos Reviewed procalcitonin, unremarkable. -PT OT Discussed with immigration case manager. Patient and son would be agreeable for home health. Right ankle pain: Reviewed ankle x-ray. Hypothyroidism - TSH is okay Type 2 diabetes mellitus, moderate.-dose sliding scale. Reviewed A1c. full code lovenox for dvt prophylaxis Attestations Medical Necessity Statement*: Continue admission for assessment management of acute encephalopathy, UTI. and High MDM includes amount and/or complexity of data reviewed/ordered [ previous or external records, resulted lab(s)/test(s), ordered lab(s)/test(s), independent historian and other healthcare professional discussion] and described risk of complication, morbidity or mortality of management as documented Diagnoses Acute encephalopathy G93.40 Generalized weakness R53.1 Urinary tract infection N39.0 Type 2 diabetes mellitus with hyperglycemia, with long-term current use of insulin E11.65; Z79.4 Diabetes mellitus type: type 2 Acquired hypothyroidism E03.9 Hypothyroidism type: acquired Myasthenia gravis G70.00
[2023-08-11] VITALS (15 sets, daily range): BP systolic 114–146; BP diastolic 53–71; PULSE 59–80; RESP 16–18; TEMP 36.4–36.9; O2SAT 96–99; BMI 28.7
[2023-08-11] MEDS: aspirin 81 mg EC Tablet PO (05:10)
[2023-08-11] MEDS: levothyroxine 88 mcg Tablet PO (05:10)
[2023-08-11 05:59] LABS: Basophils # 0.2 10^3/uL (0.0-0.1); Basophils % 0.3 %; Eosinophils # 0.3 10^3/uL (0.0-0.8); Eosinophils % 0.5 %; Hematocrit 38.5 % (36-47); Lymphocytes # 48.3 10^3/uL (0.8-4.8); Lymphocytes % 86.1 %; Mean Corpuscular HGB Conc 30.9 g/dL (30-55); Mean Corpuscular Hemoglobin 29.1 pg (27-33); Mean Corpuscular Volume 94.1 fl (85-98); Monocytes # 3.8 10^3/uL (0.2-0.9); Monocytes % 6.7 %; Neutrophils # 3.54 10^3/uL (1.8-7.7); Neutrophils % 6.2 %; Nucleated Red Blood Cells % 0 %; Platelet Count 140 10^3/cmm (157-399); Red Blood Count 4.09 10^6/uL (3.85-5.65); Red Cell Distribution Width 13.5 % (12.1-15.1)
[2023-08-11 06:25] LABS: Anion Gap 12.8 (5-19); Blood Urea Nitrogen 9 mg/dL (8-23); Calcium 8.7 mg/dL (8.5-10.5); Carbon Dioxide 25 mmol/L (22-29); Chloride 111 mmol/L (98-107); Glucose 67 mg/dL (65-115); Osmolality Calculated 297 mOsm/kg (285-295); Potassium 3.8 mmol/L (3.5-5.1); Sodium 145 mmol/L (136-145)
[2023-08-11 06:28] LABS: Slide Review Slide Review Perform
[2023-08-11 06:34] LABS: White Blood Count 56.07 10^3/uL (3.29-11.43)
[2023-08-11 06:52] LABS: Glucose Point of Care 68 mg/dL (70-110)
[2023-08-11] MEDS: lidocaine 5% Patch 1 PATCH TOPICAL (07:39)
[2023-08-11] MEDS: acetaminophen 325 mg Tablet 650 MG PO ×2 (07:42→15:36)
[2023-08-11 08:47] LABS: Glucose Point of Care 163 mg/dL (70-110)
[2023-08-11] MEDS: albuterol 2.5 mg/3 mL Neb INHALATION ×2 (09:04→19:53)
[2023-08-11] MEDS: budesonide 0.5 mg/2 mL Neb INHALATION ×2 (09:04→19:53)
[2023-08-11 11:33] LABS: Glucose Point of Care 153 mg/dL (70-110)
--- NOTE | 2023-08-11 11:56 | CTR_ITS ---
PROCEDURE INFORMATION: Exam: CT Right Lower Extremity Without Contrast, Foot Exam date and time: 08/11/2023 3:04 PM Age: 83 years old Clinical indication: Injury or trauma; Fall; Sprain or strain; Foot; Right; Additional info: Pain, swelling after fall TECHNIQUE: Imaging protocol: CT of the right lower extremity without contrast was performed. Exam focused on the foot. Radiation optimization: All CT scans at this facility use at least one of these dose optimization techniques: automated exposure control; mA and/or kV adjustment per patient size (includes targeted exams where dose is matched to clinical indication); or iterative reconstruction. COMPARISON: CR (LOW EXM, ) 08/09/2023 10:48 PM RADIATION DOSE METRICS: Total DLP (mGy-cm): 141.59 FINDINGS: Bones/joints: Osteopenia. Comminuted fracture with non displacement involving the distal fibula is again seen as described on ankle CT of the same day. Also again noted is an age indeterminate avulsion injury along the inferior aspect of the medial malleolus. No evidence of foot fracture or dislocation. Moderate degenerative change of the 1st MTP joint. Soft tissues: Diffuse soft tissue edema. CT/CT foot RT wo con* [id number] IMPRESSION: No evidence of foot fracture or dislocation. See accompanying ankle CT report for description of distal fibular fracture and avulsion fracture of the inferior medial malleolus.
--- NOTE | 2023-08-11 11:57 | CTR_ITS ---
PROCEDURE INFORMATION: Exam: CT Right Lower Extremity Without Contrast, Ankle Exam date and time: 08/11/2023 3:01 PM Age: 83 years old Clinical indication: Injury or trauma; Fall; Sprain or strain; Ankle; Right; Additional info: Pain, swelling after fall TECHNIQUE: Imaging protocol: CT of the right lower extremity without contrast was performed. Exam focused on the ankle. Radiation optimization: All CT scans at this facility use at least one of these dose optimization techniques: automated exposure control; mA and/or kV adjustment per patient size (includes targeted exams where dose is matched to clinical indication); or iterative reconstruction. COMPARISON: CR (LOW EXM, ) 08/09/2023 10:48 PM RADIATION DOSE METRICS: Total DLP (mGy-cm): 135.63 FINDINGS: Bones/joints: There is a nondisplaced comminuted fracture involving the inferior aspect of the distal fibula. There is also a calcification inferior to the medial malleolus consistent with an age indeterminate avulsion injury. No transcortical fracture of the medial malleolus is seen. Osteopenia. Soft tissues: Diffuse soft tissue swelling of the lower leg, ankle and foot are noted. CT/CT ankle RT wo con* [id number] IMPRESSION: Comminuted nondisplaced fracture of the distal fibula. Age indeterminate avulsion injury of the inferior aspect of the medial malleolus. Diffuse soft tissue swelling.
--- NOTE | 2023-08-11 16:49 | P.DS_ITS ---
Discharge Providers Date of Admission: 08/09/23 18:56 Date of Discharge: August 11, 2023 Attending Provider at Admission: Rose Marie Moreno MD Attending Provider at Discharge: Bandar Jane Primary Care Provider: MARLO Sharma Diagnoses at Discharge Discharge Diagnosis (1) Acute encephalopathy: Status: Acute (2) Generalized weakness: Status: Acute (3) Urinary tract infection: Status: Acute (4) Diabetes mellitus with hyperglycemia, with long-term current use of insulin: Status: Chronic Qualifiers: Diabetes mellitus type: type 2 Qualified Code(s): E11.65 - Type 2 diabetes mellitus with hyperglycemia; Z79.4 - long term care phlebotomist (current) use of insulin (5) Hypothyroidism: Status: Chronic Qualifiers: Hypothyroidism type: acquired Qualified Code(s): E03.9 - Hypothyroi dism, unspecified (6) Myasthenia gravis: Status: Chronic Reason for Visit Reason for Visit: stoke symptoms, face and eye droop Discharge Data Studies Completed and Pending Completed Studies During Hospitalization Category Date Time Status CT angio headneck* 14628/80161 Stat Cat Scan 08/09/23 15:[address] cervical spin wo con* [id number] Routine Cat Scan 08/10/23 16:52 Completed XR ankle RT 2V [id number] Routine Exams 08/09/23 20:58 Completed XR cervical spine 3V* [id number] Routine Exams 08/09/23 20:58 Completed XR chest 1V portable [id number] Stat Exams 08/09/23 15:31 Completed XR foot RT 2V [id number] Routine Exams 08/09/23 20:58 Completed XR shoulder RT min 2V* [id number] Routine Exams 08/09/23 20:58 Completed Pending at discharge Category Date Time Status CT ankle RT wo con* [id number] Routine Cat Scan 08/11/23 11:[address] foot RT wo con* [id number] Routine Cat Scan 08/11/23 11:56 Ordered Basic Metabolic Panel AM LABS Lab 08/12/23 04:00 Ordered Basic Metabolic Panel AM LABS Lab 08/13/23 04:00 Ordered Blood Cultures ([facility]) Routine Lab 08/09/23 22:27 Received Blood Cultures ([facility]) Routine Lab 08/09/23 22:36 Received Complete Blood Count w/Auto AM LABS Lab 08/12/23 04:00 Ordered Complete Blood Count w/Auto AM LABS Lab 08/13/23 04:00 Ordered Urine Culture Stat Lab 08/09/23 17:17 Results Radiology Impressions Chest X-Ray 08/09/23 15:31 IMPRESSION: No acute pathology given AP technique. Head/Neck CTA 08/09/23 15:31 IMPRESSION: 1. Moderate focal stenosis of the left vertebral artery. 2. Otherwise patent [id number]. 3. Old questionable left occipital condyle fracture. IMPRESSION: 1. Mild stenosis of the proximal right internal carotid artery. 2. Mild stenosis of the proximal left subclavian artery. 3. Severe stenosis at the origin of the left vertebral artery without significant change. 4. Bilateral axillary lymphadenopathy. REFERENCES: NASCET CRITERIA. The degree of stenosis in the cervical segment of the internal carotid artery is based on NASCET criteria. Normal is no stenosis. Mild is less than 50% stenosis. Moderate is 50-69% stenosis. Severe is 70% to 99% stenosis. Total occlusion is no detectable patent lumen. Ankle X-Ray 08/09/23 20:58 IMPRESSION: No acute fracture. Cervical Spine X-Ray 08/09/23 20:58 IMPRESSION: Osteopenia and degenerative changes. No fracture is identified. Foot X-Ray 08/09/23 20:58 IMPRESSION: Degenerative changes. No fracture is identified. Shoulder X-Ray 08/09/23 20:58 IMPRESSION: Osteopenia. No acute fracture identified. Cervical Spine CT 08/10/23 16:52 IMPRESSION: 1. No acute abnormality. 2. Stable chronic deformity of the left occipital bone with adjacent soft tissue calcifications, suggesting remote trauma. 3. Status post C1, C2, and C3 laminectomies. 4. Stable [id number] chronic degenerative changes without severe spinal stenosis. 5. A stable subcentimeter hyperdense extra-axial mass on the left side anterolateral to the inferior cookie. Favor meningioma. Laboratory Results WBC 56.07 10^3/uL (3.29-11.43) H* 08/11/23 05:50 RBC 4.09 10^6/uL (3.85-5.65) 08/11/23 05:50 Hgb 11.90 g/dL (11.27-16.99) 08/11/23 05:50 Hct 38.5 % (36-47) 08/11/23 05:50 MCV 94.1 fl (85-98) 08/11/23 05:50 MCH 29.1 pg (27-33) 08/11/23 05:50 MCHC 30.9 g/dL (30-55) 08/11/23 05:50 RDW 13.5 % (12.1-15.1) 08/11/23 05:50 Plt Count 140 10^3/cmm (157-399) L 08/11/23 05:50 MPV 9.0 fL (7.4-10.4) 08/11/23 05:50 Neut % (Auto) 6.2 % 08/11/23 05:50 Lymph % (Auto) 86.1 % 08/11/23 05:50 [place] % (Auto) 6.7 % 08/11/23 05:50 Eos % (Auto) 0.5 % 08/11/23 05:50 Baso % (Auto) 0.3 % 08/11/23 05:50 Neut # (Auto) 3.54 10^3/uL (1.8-7.7) 08/11/23 05:50 Lymph # (Auto) 48.3 10^3/uL (0.8-4.8) H 08/11/23 05:50 [place] # (Auto) 3.8 10^3/uL (0.2-0.9) H 08/11/23 05:50 Eos # (Auto) 0.3 10^3/uL (0.0-0.8) 08/11/23 05:50 Baso # (Auto) 0.2 10^3/uL (0.0-0.1) H 08/11/23 05:50 Nucleated RBC % (auto) 0 % 08/11/23 05:50 Total Counted 100 (0-100) 08/10/23 02:24 Atypical Lymphs % 44.0 % (0-5) H 08/10/23 02:24 Absolute Neutrophils 3.9 10^3/cmm (1.4-6.5) 08/09/23 15:37 Segmented Neutrophils 10 % 08/10/23 02:24 Abs Segm Neuts (Man) 5.4 10/cmm (1.6-7.1) 08/10/23 02:24 Band Neutrophils Not Reportable 08/10/23 02:24 Abs Band Neuts (Man) 0.0 10^3/cmm (0.0-1.2) 08/09/23 15:37 Absolute Lymphocytes 45.2 10^3/cmm (1.2-3.4) H 08/10/23 02:24 Lymphocytes (Manual) 40 % 08/10/23 02:24 Monocytes (Manual) 6.0 % 08/10/23 02:24 Absolute Monocytes 3.2 10^3/cmm (0.1-0.6) H 08/10/23 02:24 Eosinophils (Manual) 0 % 08/10/23 02:24 Absolute Eosinophils 0.0 10^3/cmm (0.0-0.7) 08/10/23 02:24 Basophils (Manual) 0.0 % 08/10/23 02:24 Absolute Basophils 0.0 10^3/cmm (0.0-0.2) 08/10/23 02:24 Nucleated RBCs # 0.0 /100WBC 08/11/23 05:50 Smudge Cells 1+ H 08/10/23 02:24 Platelet Estimate Decreased (Normal) L 08/10/23 02:24 PT 13.60 SECONDS (12.1-14.9) 08/09/23 15:37 INR 1.01 (0.8-1.2) 08/09/23 15:37 Sodium 145 mmol/L (136-145) 08/11/23 05:50 Potassium 3.8 mmol/L (3.5-5.1) 08/11/23 05:50 Chloride 111 mmol/L (98-107) H 08/11/23 05:50 Carbon Dioxide 25 mmol/L (22-29) 08/11/23 05:50 Anion Gap 12.8 (5-19) 08/11/23 05:50 BUN 9 mg/dL (8-23) 08/11/23 05:50 Creatinine 0.7 mg/dL (0.5-0.9) 08/11/23 05:50 GFR Calculation Not Reportable 08/11/23 05:50 Glucose 67 mg/dL (65-115) 08/11/23 05:50 POC Glucose 153 mg/dL (70-110) H 08/11/23 11:25 Estimat Average Glucose 137 08/10/23 02:24 Hemoglobin A1c 6.4 % (4.0-6.0) H 08/10/23 02:24 Calculated Osmolality 297 mOsm/kg (285-295) H 08/11/23 05:50 Calcium 8.7 mg/dL (8.5-10.5) 08/11/23 05:50 Phosphorus 3.9 mg/dL (2.5-4.5) 08/10/23 02:24 Magnesium 2.2 mg/dL (1.7-2.3) 08/10/23 02:24 Total Bilirubin 0.3 mg/dL (0.15-1.2) 08/10/23 02:24 AST 16 U/L (0-32) 08/10/23 02:24 ALT 9 U/L (0-33) 08/10/23 02:24 Alkaline Phosphatase 69 U/L (35-105) 08/10/23 02:24 Troponin T Baseline 8 ng/L (0-10) 08/09/23 22:27 Troponin T 120 Minute 7.17 ng/L (0-10) 08/10/23 00:00 Delta Troponin T -0.83 ABS# (0-10) L 08/10/23 00:00 Troponin T Hi Sens 6Hr 8.56 ng/L (0-10) 08/10/23 02:24 Troponin T Hi Sens 6Hr Delta 0.56 ng/L (0-12) 08/10/23 02:24 C-Reactive Protein 5.0 mg/L (0.0-4.9) H 08/09/23 16:03 NT-Pro-B Natriuret Pep 157 pg/mL (0-450) 08/10/23 02:24 Total Protein 5.5 g/dL (6.6-8.7) L D 08/10/23 02:24 Albumin 3.5 g/dL (3.5-5.2) 08/10/23 02:24 Globulin 2.0 g/dL (1.3-4.6) 08/10/23 02:24 Triglycerides 110 mg/dL (0-150) 08/10/23 02:24 Cholesterol 92 mg/dL (0-200) 08/10/23 02:24 LDL Cholesterol, Calc 43 mg/dL (50-129) L 08/10/23 02:24 HDL Cholesterol 27 mg/dL (60-100) L 08/10/23 02:24 LDL/HDL Ratio 1.59 RATIO (0.00-3.22) 08/10/23 02:24 Cholesterol/HDL Ratio 3.41 mg/dL (0.0-4.40) 08/10/23 02:24 Procalcitonin 0.05 ng/mL (0-0.5) 08/09/23 16:03 TSH 0.86 uIU/mL (0.27-4.20) 08/09/23 15:37 Urine Color Light yellow (Yellow) 08/09/23 17:17 Urine Appearance Cloudy (CLEAR) A 08/09/23 17:17 Urine pH 6 (5-7) 08/09/23 17:17 Ur Specific [place] 1.015 (1.005-1.030) 08/09/23 17:17 Urine Protein Trace (Negative) 08/09/23 17:17 Urine Glucose (UA) Norm (Normal) 08/09/23 17:17 Urine Ketones Negative (Negative) 08/09/23 17:17 Urine Blood 2+ (Negative) H 08/09/23 17:17 Urine Nitrate Positive (Negative) H 08/09/23 17:17 Urine Bilirubin Neg (Negative) 08/09/23 17:17 Urine Urobilinogen Norm mg/dL (Negative) 08/09/23 17:17 Ur Leukocyte Esterase 2+ (Negative) H 08/09/23 17:17 Urine RBC 5-10 /hpf (0-2) H 08/09/23 17:17 Urine WBC Too numerous to cnt /hpf (0-5) H 08/09/23 17:17 Ur Squamous Epith Cells 0-4 /hpf (0-5) H 08/09/23 17:17 Amorphous Sediment Not Reportable 08/09/23 17:17 Urine Bacteria 2+ /hpf (NONE) H 08/09/23 17:17 Urine Mucus 1+ /hpf 08/09/23 17:17 Adenovirus (PCR) Not detected (NOT DETECT) 08/09/23 23:50 C. pneumoniae DNA (PCR) Not detected (NOT DETECT) 08/09/23 23:50 Coronavirus 229E (PCR) Not detected (NOT DETECT) 08/09/23 23:50 Human Metapneumovir PCR Not detected (NOT DETECT) 08/09/23 23:50 Influenza A (H1) PCR Not detected (NOT DETECT) 08/09/23 23:50 Influ A (H1/09) PCR Not detected (NOT DETECT) 08/09/23 23:50 Influenza A (H3) PCR Not detected (NOT DETECT) 08/09/23 23:50 Influenza Type A (PCR) Not detected (NOT DETECT) 08/09/23 23:50 Influenza Type B (PCR) Not detected (NOT DETECT) 08/09/23 23:50 M. pneumoniae (PCR) Not detected (NOT DETECT) 08/09/23 23:50 Parainfluenza 1 (PCR) Not detected (NOT DETECT) 08/09/23 23:50 Parainfluenza 2 (PCR) Not detected (NOT DETECT) 08/09/23 23:50 Parainfluenza 3 (PCR) Not detected (NOT DETECT) 08/09/23 23:50 Parainfluenza 4 (PCR) Not detected (NOT DETECT) 08/09/23 23:50 RSV Type A (PCR) Not detected (NOT DETECT) 08/09/23 23:50 RSV Type B (PCR) Not detected (NOT DETECT) 08/09/23 23:50 Entero/Rhino (PCR) Not detected (NOT DETECT) 08/09/23 23:50 SARS-CoV-2 (PCR) Not detected (NOT DETECT) 08/09/23 23:50 Vitals Last Vital Signs Temp 97.6 F 08/11/23 11:34 Pulse 61 08/11/23 11:34 Resp 16 08/11/23 11:34 BP 116/63 08/11/23 11:34 Pulse Ox 97 08/11/23 11:34 O2 Del Method Nasal Cannula 08/11/23 11:34 O2 Flow Rate 2 08/11/23 09:04 Discharge Plan Discharge Patient Disposition: Home Health Service Condition: Stable Prescriptions: New lidocaine 5 % Adhesive Patch,Medicated 1 patch topical [id number] Qty: 30 0RF cefdinir 300 mg capsule 300 mg PO BID 5 Days Qty: 10 0RF Continued (DME) lancets [TRUEplus Lancets] 33 gauge misc See Rx Instructions .Route Qty: 100 5RF Rx Instructions: use one 3 times day (DME) FreeStyle William 2 [facility] [place] See Rx Instructions .ROUTE .MEDSUPPLY Qty: 1 0RF Rx Instructions: As directed albuterol sulfate [Proventil HFA] 90 mcg/actuation HFA aerosol inhaler 2 puff INHALATION QID PRN (Reason: Shortness Of Breath) Qty: 6.7 1RF albuterol sulfate 2.5 mg /3 mL (0.083 %) solution for nebulization 2.5 mg inhalation QID PRN (Reason: shortness of breath or wheezing) Qty: 360 3RF medical marijuana capsule See Rx Instructions .ROUTE .COMPLEX Rx Instructions: USE DIRECTED furosemide 20 mg tablet 20 mg PO BID PRN (Reason: edema) Qty: 180 1RF tolterodine [Detrol] 2 mg tablet 2 mg PO DAILY Qty: 90 1RF (DME) Power chair repair See Rx Instructions .Route .MEDSUPPLY Qty: 1 0RF Rx Instructions: Repair power chair and maintenance (DME) pen needle, diabetic, safety [DropSafe Pen Needle] 31 gauge x 3/16 needle See Rx Instructions .Route Qty: 300 2RF Rx Instructions: use 4 day simvastatin 20 mg tablet 20 mg PO BEDTIME Qty: 90 1RF insulin aspart U-100 [Novolog FlexPen U-100 Insulin] 100 unit/mL (3 mL) insulin pen See Rx Instructions SUBCUT TID Qty: 15 2RF Rx Instructions: 110-129=3U 130-150=6U 151-200=9U 201-250=12U 251-300=15U 301-350=18U 351- 400=21U >400=24U SUBCUT three times daily; (DME) FreeStyle William 2 Sensor Kit See Rx Instructions .ROUTE .MEDSUPPLY Qty: 2 11RF Rx Instructions: change every 14 days cefuroxime axetil 500 mg tablet 500 mg PO BID Qty: 20 0RF Airborne Gummy 250-11.66 mg tablet,chewable 1 tab PO DAILY aspirin 81 mg tablet,delayed release (DR/EC) 81 mg PO QAM levothyroxine 88 mcg tablet 88 mcg PO QAM Toujeo Max U-300 SoloStar 300 unit/mL (3 mL) insulin pen See Rx Instructions .ROUTE .COMPLEX Rx Instructions: INJECT up to 80 UNITS subcutaneously daily. Breztri Aerosphere 160-9-4.8 mcg/actuation HFA aerosol inhaler 2 inh inhalation BID PRN (Reason: Shortness Of Breath) Changed diazepam 2 mg tablet 1 mg PO TID PRN (Reason: muscle spasm) Qty: 60 2RF Other Ambulatory Orders: DME: [employer] (Order) Location: None Selected Ordered By: Bandar Jane Referrals: Victor M Dukes, [Physician] - 1 week (R posterior neck pain after fall, Hx C spine surgery) Adam Anguiano, WAREHOUSE LOGISTICS COORDINATOR-C [Primary Care Provider] - 4-7 days Discharge Diet: As Directed Patient Instructions: Cefdinir (By mouth) (Omnicef), Lidocaine Patch (On the skin), Urinary Tract Infection in Older Adults (GEN), Aspiration Precautions (GEN), Opioid Safety Activity Restrictions/Additional Instructions: Complete antibiotic course for urinary tract infection. Follow-up with your primary doctor for reassessment of improvement of generalized weakness. Follow-up with your primary doctor as well as with orthopedics with regards to posterior right neck pain, history of spine surgery, as well as right ankle/foot pain after recent falls. Follow-up with your primary doctor for reassessment and follow-up of subcentimeter hypodense extra-axial mass on the left side of cookie in the brain. Continue follow-up with hematology for CLL. Continue aspiration precautions, dysphagia level 5 diet with minced and moist foods with mildly thickened liquids. Coding Level of Care Code Acute Code for [facility] Fwd Diagnoses Acute encephalopathy G93.40 Generalized weakness R53.1 Urinary tract infection N39.0 Type 2 diabetes mellitus with hyperglycemia, with long-term current use of insulin E11.65; Z79.4 Diabetes mellitus type: type 2 Acquired hypothyroidism E03.9 Hypothyroidism type: acquired Myasthenia gravis G70.00
[2023-08-11 16:50] LABS: Glucose Point of Care 124 mg/dL (70-110)
--- NOTE | 2023-08-11 16:53 | P.PN_ITS ---
Subjective 2 Subjective: Pain in the R posterior neck. Screaming out in pain after jerking awake and moving her head. No other new symptoms. Pain with weightbearing on the right foot persists although slightly better. She is very hard of hearing today as batteries are running out of in her hearing aids. Vitals/I&O/Wt Last Vital Signs Temp 97.6 F 08/11/23 16:00 Pulse 60 08/11/23 16:00 Resp 16 08/11/23 16:00 BP 129/58 08/11/23 16:00 Pulse Ox 98 08/11/23 16:00 O2 Del Method Nasal Cannula 08/11/23 16:00 O2 Flow Rate 2 08/11/23 09:04 08/11/23 08/11/23 08/11/23 06:59 14:59 22:59 Intake Total 215 / 2985 480 / 480 Balance 215 / 2985 480 / 480 Weight last 48 hrs Weight 73.618 kg Weight 72.62 kg Weight 72.575 kg Physical Exam 2 Narrative: Visited by son. Very hard of hearing since battery and hearing aids. Const: COMMON NORMALS: patient oriented x3 and alert GENERAL APPEARANCE: c ooperative ORIENTATION/CONSCIOUSNESS: Yes awake HENMT: COMMON NORMALS: oropharynx normal Neck/C-Spine: COMMON NORMALS: no JVD OTHER: Pain posterior right cervical spine/upper back. Pain on passive range of motion. No erythema, no visible swelling. Resp: COMMON NORMALS: normal respiratory effort and clear to auscultation bilaterally AUSCULTATION: clear to auscultation bilaterally Cardio: COMMON NORMALS: no JVD, regular rhythm, S1 normal heart sound present, S2 normal heart sound present and No murmurs present (Cardio) RHYTHM: regular rhythm HEART SOUNDS: S1 normal heart sound present and S2 normal heart sound present GI: COMMON NORMALS: Normal to inspection, nondistended, normoactive bowel sounds present, Soft to palpation and non-tender PALPATION: Yes Soft to palpation Extremity: COMMON NORMALS: no joint enlargement and no pedal edema Neuro: COMMON NORMALS: patient oriented x3 and moves all extremities S ENSORIUM/ORIENTATION: Yes alert Skin: COMMON NORMALS: no rashes or lesions noted GENERAL SKIN EXAM: no rashes or lesions noted Data 08/11/23 05:50 08/11/23 05:50 Micro: Microbiology 08/09/23 17:17 Urine Culture - Preliminary Urine,Clean Catch Gram Negative Rods A&P Assessment and plan (1) Acute encephalopathy: (2) Generalized weakness: (3) Urinary tract infection: (4) Diabetes mellitus with hyperglycemia, with long-term current use of insulin: Qualifiers: Diabetes mellitus type: type 2 Qualified Code(s): E11.65 - Type 2 diabetes mellitus with hyperglycemia; Z79.4 - custodial (current) use of insulin (5) Hypothyroidism: Qualifiers: Hypothyroidism type: acquired Qualified Code(s): E03.9 - Hypothyroidism, unspecified (6) Myasthenia gravis: Plan Acute encephalopathy: She is very hard of hearing today as batteries ran out and her hearing aids, this puts her at additional risk of confusion. Unfortunately she cannot charge him here in the hospital. Plans were potentially for discharge today but she is still having severe pain in the right neck which is not yet controlled with Tylenol and lidocaine patch. Since admission overall encephalopathy with improvement. Continue treatment of urinary tract infection. Condition assessment of severe pain in the posterior right neck. Reviewed vitals, CBC, BMP -Neurochecks, aspiration precautions, night stroke scale -Discussed with her and her son recommendations for dysphagia diet and reasoning. Severe pain posterior right neck: Add hydrocodone Due to still severe uncontrolled pain with minimal movement of right posterior neck. Cont lidocaine patch, Tylenol. Will request also for a soft cervical collar with PT. IV morphine as needed for severe breakthrough. On passive range of motion pain appears to be in the posterior right neck as opposed to the shoulder as she was initially thinking. Growing slowly no significant pain on passive range of motion of the right shoulder. Reviewed CT cervical spine with her and her son. Add lidocaine patch. Reviewed shoulder x-ray. Urinary tract infection: Reviewed urine culture, noted gram-negative rods. -Continue Rocephin. Follow-up urine culture. Generalized weakness. Stop IV fluid. -Reviewed urine cultures, blood cultures, troponin series, TSH, mag, Phos Reviewed procalcitonin, unremarkable. -PT OT Discussed with casework supervisor. Patient and son would be agreeable for home health. Right ankle pain: Still having pain, swelling of the right foot with ambulation, right ankle, will additionally assess CT foot and ankle. Reviewed CT, noted multiple fractures including comminuted nondisplaced fracture of distal fibula as well as inferior avulsion fracture of medial malleolus. Discussed with water softener servicer and installer. Appreciate consultation. Possible meningioma: Noted in the left side of the cookie incidentally on CT cervical spine. Discussed with her son, follow-up outpatient. Hypothyroidism - TSH is okay Type 2 diabetes mellitus, moderate.-dose sliding scale. Reviewed A1c. full code lovenox for dvt prophylaxis Attestations 2 Medical Necessity Statement*: Continue admission for optimization of pain control of severe pain in R neck after a fall with history of neck surgery. Diagnoses Acute encephalopathy G93.40 Generalized weakness R53.1 Urinary tract infection N39.0 Type 2 diabetes mellitus with hyperglycemia, with long-term current use of insulin E11.65; Z79.4 Diabetes mellitus type: type 2 Acquired hypothyroidism E03.9 Hypothyroidism type: acquired Myasthenia gravis G70.00
[2023-08-11] MEDS: cefTRIAXone 1,000 MG in sodium chloride 0.9% (plus) 50 ML 100 MG IV (17:31)
[2023-08-11 20:09] LABS: Glucose Point of Care 159 mg/dL (70-110)
[2023-08-11] MEDS: atorvastatin 40 mg Tablet 20 MG PO (20:33)
[2023-08-11] MEDS: HYDROcodone-acetaminophen 5-325 mg Tablet 1 TAB PO (20:33)
[2023-08-11] MEDS: pantoprazole 40 mg SDV IVP (20:34)
[2023-08-11] MEDS: enoxaparin 40 mg/0.4 mL Syringe SUBCUT (20:34)
[2023-08-12] VITALS (8 sets, daily range): BP systolic 110–137; BP diastolic 63–66; PULSE 60–70; RESP 17–20; TEMP 36.6–36.8; O2SAT 93–98
[2023-08-12] MEDS: aspirin 81 mg EC Tablet PO (05:10)
[2023-08-12] MEDS: levothyroxine 88 mcg Tablet PO (05:10)
[2023-08-12] MEDS: HYDROcodone-acetaminophen 5-325 mg Tablet 1 TAB PO ×2 (05:11→12:09)
[2023-08-12 06:04] LABS: Basophils # 0.2 10^3/uL (0.0-0.1); Basophils % 0.3 %; Eosinophils # 0.2 10^3/uL (0.0-0.8); Eosinophils % 0.4 %; Hematocrit 36.7 % (36-47); Lymphocytes % 87.3 %; Mean Corpuscular HGB Conc 32.7 g/dL (30-55); Mean Corpuscular Volume 91.8 fl (85-98); Mean Platelet Volume 9.4 fL (7.4-10.4); Monocytes # 3.5 10^3/uL (0.2-0.9); Monocytes % 6.1 %; Neutrophils # 3.25 10^3/uL (1.8-7.7); Neutrophils % 5.7 %; Nucleated Red Blood Cells % 0 %; Platelet Count 138 10^3/cmm (157-399); Red Cell Distribution Width 13.4 % (12.1-15.1)
[2023-08-12 06:13] LABS: Anion Gap 9.9 (5-19); Blood Urea Nitrogen 7 mg/dL (8-23); Calcium 8.6 mg/dL (8.5-10.5); Carbon Dioxide 29 mmol/L (22-29); Chloride 110 mmol/L (98-107); Glucose 68 mg/dL (65-115); Osmolality Calculated 296 mOsm/kg (285-295); Potassium 3.9 mmol/L (3.5-5.1); Sodium 145 mmol/L (136-145)
[2023-08-12 06:24] LABS: White Blood Count 57.26 10^3/uL (3.29-11.43)
[2023-08-12 06:39] LABS: Glucose Point of Care 66 mg/dL (70-110)
[2023-08-12] MEDS: albuterol 2.5 mg/3 mL Neb INHALATION (07:45)
[2023-08-12] MEDS: budesonide 0.5 mg/2 mL Neb INHALATION (07:45)
--- NOTE | 2023-08-12 09:12 | P.CONIM_ITS ---
Providers/Reason For Consult 2 Consulting Physician/Specialty*: Elmer Quezada D.P.M. Reason for Consult*: Right distal fibular fracture Attending Physician: Bandar Jane Primary Care Provider: MARLO Sharma History of Present Illness History of Present Illness Felicitas Augustine is a 83 year old female Review of Systems 2 Const: Denies: chills Resp: Denies: dyspnea or productive cough GI: Denies: abdominal pain, nausea or vomiting : Denies: difficulty voiding Musc: Reports: extremity pain, extremity swelling, joint pain, joint swelling and limited range of motion; Denies: joint redness, joint warmth, muscle weakness or deformity Skin/Breast: Denies: changes in skin color, dry skin, nail changes or change in hair Neuro: Denies: numbness in extremities or weakness in extremities Psych: Denies: anxiety [place]/Lymph: Denies: easy bruising or easy bleeding Medications/Allergies Home Medications Medication Instructions Recorded Confirmed Last Taken Type lancets 33 gauge (TRUEplus Lancets) #100 ea 12/23/20 08/09/23 01/13/23 Rx flash glucose scanning reader #1 ea 01/12/22 08/09/23 01/13/23 Rx ([employer] William 2 [place]) medical marijuana See Rx Instructions .Route .COMPLEX 04/06/22 08/09/23 01/16/23 History Power chair repair #1 ea 09/27/22 08/09/23 01/13/23 Rx awlapvpt-gmgduort-ish C 250 1 tab PO DAILY 11/07/22 08/09/23 08/09/23 History mg-herbal no.124 11.66 mg chewable tablet (Airborne Gummy) albuterol sulfate 2.5 mg/3 mL 2.5 mg (3 mL) inhalation QID PRN 02/23/23 08/09/23 Unknown Rx (0.083 %) solution for nebulization shortness of breath or wheezing #360 mL albuterol sulfate 90 mcg/actuation 2 puff inhalation QID PRN 03/10/23 08/09/23 Unknown Rx aerosol inhaler (Proventil HFA) Shortness Of Breath #6.7 grams pen needle, diabetic, safety 31 #300 ea 03/19/23 08/09/23 Unknown Rx gauge x 3/16 (DropSafe Pen Needle) diazepam 2 mg tablet 2 mg PO TID PRN muscle spasm #60 04/13/23 08/09/23 Unknown Rx tabs insulin aspart U-100 100 unit/mL See Rx Instructions SUBCUT TID #15 05/18/23 08/09/23 08/09/23 Rx (3 mL) subcutaneous pen (Novolog mL FlexPen U-100 Insulin aspart) simvastatin 20 mg tablet 20 mg PO BEDTIME #90 tabs 05/18/23 08/09/23 08/08/23 Rx furosemide 20 mg tablet 20 mg PO BID PRN edema #180 tabs 05/27/23 08/09/23 Unknown Rx tolterodine 2 mg tablet (Detrol) 2 mg PO DAILY urinary frequency 05/27/23 08/09/23 08/09/23 Rx #90 tabs flash glucose sensor (FreeStyle #2 ea 07/17/23 08/09/23 Unknown Rx William 2 Sensor kit) aspirin 81 mg tablet,delayed 81 mg PO QAM 08/09/23 08/09/23 08/09/23 History release budesonide 160 mcg-glycopyr 9 2 inh inhalation BID PRN Shortness 08/09/23 08/09/23 Unknown History mcg-formot 4.8 mcg/actuation HFA Of Breath inhaler (Breztri Aerosphere) insulin glargine U-300 conc 300 See Rx Instructions .Route .COMPLEX 08/09/23 08/09/23 08/09/23 History unit/mL (3 mL) subcutaneous pen (Toujeo Max U-300 SoloStar) levothyroxine 88 mcg tablet 88 mcg PO QAM 08/09/23 08/09/23 08/09/23 History cefuroxime axetil 500 mg tablet 500 mg PO BID #20 tabs 08/11/23 Unknown Rx Allergies Allergy/AdvReac Type Severity Reaction Status Date / Time Sulfa (Sulfonamide Allergy RASH Verified 08/08/23 10:29 Antibiotics) PNEUMONIA VACCINE Allergy ALGY-Rash Uncoded 08/08/23 10:29 Current Medications Generic Name Dose Route Start Last Admin Trade Name Freq PRN Reason Stop Dose Admin Acetaminophen 650 mg 08/09/23 20:58 08/11/23 15:36 Acetaminophen 325 Mg Tablet PO 650 mg Q6H PRN Administration Mild/Mod Pain Or Temp >/= 101 Hydrocodone Bitart/Acetaminophen 1 tab 08/11/23 16:52 08/12/23 05:11 Hydrocodone-Acetaminophen 5-325 Mg Tablet PO 1 tab Q4H PRN Administration MODERATE PAIN Albuterol Sulfate 2.5 mg 08/09/23 21:17 08/12/23 07:45 Albuterol 2.5 Mg/3 Ml Neb INHALATION 2.5 mg QID PRN Administration SHORTNESS OF BREATH Aspirin 81 mg 08/10/23 06:00 08/12/23 05:10 Aspirin 81 Mg Ec Tablet PO 81 mg QAM INEZ Administration Atorvastatin Calcium 20 mg 08/10/23 21:00 08/11/23 20:33 Atorvastatin 40 Mg Tablet PO 20 mg BEDTIME INEZ Administration Budesonide 0.5 mg 08/10/23 08:00 08/12/23 07:45 Budesonide 0.5 Mg/2 Ml Neb INHALATION 0.5 mg BID.RESPIRATORY INEZ Administration Dextrose 50 ml 08/09/23 20:58 08/09/23 23:06 Dextrose 50% Syringe 50 Ml IVP 50 ml PRN PRN Administration hypoglycemia protocol Protocol Enoxaparin Sodium 40 mg 08/09/23 21:00 08/11/23 20:34 Enoxaparin 40 Mg/0.4 Ml Syringe SUBCUT 40 mg Q24H INEZ Administration Ceftriaxone Sodium 1,000 mg/ 50 mls @ 100 mls/hr 08/10/23 18:00 08/11/23 19:14 Sodium Chloride IV Infused Q24H INEZ Infusion Protocol Insulin Human Lispro 0 unit 08/10/23 08:00 08/12/23 07:52 Insulin Lispro 100 Unit/1 Ml SUBCUT Not Given TIDWM [facility] Protocol Levothyroxine Sodium 88 mcg 08/10/23 06:00 08/12/23 05:10 Levothyroxine 88 Mcg Tablet PO 88 mcg QAM INEZ Administration Lidocaine 1 patch 08/11/23 09:00 08/11/23 20:34 Lidocaine 5% Patch TOPICAL Not Given [id number] [facility] Morphine Sulfate 2 mg 08/09/23 20:58 08/10/23 09:48 Morphine 4 Mg/Ml Sdv 1 Ml IVP 2 mg Q4H PRN Administration SEVERE PAIN Pantoprazole Sodium 40 mg 08/09/23 21:00 08/11/23 20:34 Pantoprazole 40 Mg Sdv IVP 40 mg Q24H INEZ Administration PFSH Acute 2 PFSH: Medical History Atherosclerosis of [place] coronary artery without angina pectoris Chronic lymphocytic leukemia Urolithiasis Left ureteral calculus Myasthenia gravis UTI (urinary tract infection) Diabetes mellitus with hyperglycemia, with long-term current use of insulin Environmental and seasonal allergies Essential hypertension, benign Pneumonia Hyperlipidemia Vitamin D deficiency Vitamin B 12 deficiency COPD (chronic obstructive pulmonary disease) Depression with anxiety Hypothyroidism Neuropathy Surgical History History of basal cell carcinoma (BCC) excision History of hysterectomy with bilateral oophorectomy For cervical cancer History of appendectomy History of colonoscopy with polypectomy (11/17/21) Pacemaker 04/05/2019 H/O thyroidectomy Total thyroidectomy followed by radioactive iodine ablation for thyroid cancer H/O reduction of closed fracture left wrist 10/23/2015 Hx of cholecystectomy H/O brain surgery Craniotomy x 4 for meningioma H/O esophagogastroduodenoscopy (11/17/21) 2013 Family History Mother , AT 92 Anesthesia complication CAD (coronary artery disease) Cancer Dementia Stroke Brother CAD (coronary artery disease) Cancer Suicide Sister CAD (coronary artery disease) Suicide Grandmother Cancer Dementia Stroke Family/Other Cancer Dementia Stroke Brother Suicide Brother Suicide Father , IN HIS 60'S Alcoholic Liver disease Denies family history of Diabetes Clotting disorder Chronic kidney disease (CKD) Bleeding disorder Lung disease Social History Smoking and tobacco/nicotine status: former use of tobacco/nicotine Quit status (tobacco/nicotine): has quit using Year quit tobacco: 1997 Former quit date comment: 1 ppd X 45 years Second hand smoke exposure: No Alcohol intake: unknown Substance/Drug Use: unknown Adopted: No Caregiver/support person: Yes Lives independently: No Household members: family Housing: House Marital status: / Number of children: 2 service: No Current occupational status: retired Current occupational exposures/hazards: No Do you think of yourself as: Straight/Heterosexual Vitals/I&O/Wt Last Vital Signs Temp 98.3 F 02/03/24 08:13 Pulse 60 08/12/23 08:13 Resp 20 H 08/12/23 08:13 BP 110/64 08/12/23 08:13 Pulse Ox 93 08/12/23 08:13 O2 Del Method Nasal Cannula 08/12/23 08:13 O2 Flow Rate 2 08/12/23 08:13 08/11/23 08/12/23 08/12/23 22:59 06:59 14:59 Intake Total 530 / 1010 Balance 530 / 1010 Weight last 48 hrs Weight 162 lb 3.2 oz Weight 162 lb 4.8 oz Physical Exam 2 Const: COMMON NORMALS: no acute distress, patient oriented x3 and alert HENMT: COMMON NORMALS: normocephalic HEAD & SCALP: normocephalic Eye: COMMON NORMALS: Equal, round and reactive pupils present, EOMs intact bilaterally and conjunctivae normal CONJUNCTIVA: Yes conjunctivae normal P UPIL: Yes Equal, round and reactive pupils present Chest: CHEST: Yes Symmetrical chest wall rise Resp: COMMON NORMALS: normal respiratory effort, No use of accessory muscles and clear to auscultation bilaterally EFFORT & INSPECTION: Yes able to speak in complete sentences and Yes symmetric chest movement AUSCULTATION: clear to auscultation bilaterally Cardio: COMMON NORMALS: regular rate, regular rhythm, No murmurs present (Cardio) and Peripheral pulses 2+ throughout RATE: regular rate RHYTHM: r egular rhythm PERIPHERAL PULSES: Peripheral pulses 2+ throughout Extremity: COMMON NORMALS: capillary refill normal, no calf tenderness and no pedal edema (Focal edema right ankle medial and lateral malleolus) NARRATIVE EXTREMITY EXAM: Minor tenderness at left forefoot, no specific anatomic structure isolated. GENERAL: Yes edema RIGHT LOWER EXTREMITY: Yes foot & digits (Tenderness to palpation at right distal fibula, no tenderness to palpation ) Neuro: COMMON NORMALS: patient oriented x3 SENSORIUM/ORIENTATION: Yes alert Psych: COMMON NORMALS: mental status grossly normal and cooperative Skin: COMMON NORMALS: no wounds GENERAL SKIN EXAM: no erythema TRAUMA: n o lacerations HAIR: general thinning Data 08/12/23 05:20 08/12/23 05:20 Micro: Microbiology 08/09/23 17:17 Urine Culture - Preliminary Urine,Clean Catch Gram Negative Rods A&P Assessment and plan (1) Closed fracture of right distal fibula: Qualifiers: Encounter type: initial encounter Fracture morphology: other fracture Qualified Code(s): S82.831A - Other fracture of upper and lower end of right fibula, initial encounter for closed fracture (2) Left foot pain: Plan Nondisplaced Lorenzo Titus a fracture right distal fibula, approximately 1 week ago fell getting off of the toilet. CT scan August 11, 2023 shows comminuted avulsion fracture of the distal right fibula that is nondisplaced. Right ankle mortise is congruent. Also finding of age-indeterminate medial malleolus avulsion fracture. Clinical exam reveals pain to palpation at the right lateral distal fibula. There is no pain to palpation at the right medial malleolus. Muscle strength is +5 in all 3 planes right foot and ankle. I dispensed an ASO to the right ankle. Patient may weight-bear as tolerated with the ASO to the right ankle. She complains of diffuse tenderness at the left foot, will order left foot x-ray for further eval. Weightbearing as tolerated below threshold of pain to the right ankle with ASO, will follow-up in podiatry clinic outpatient in 2 weeks. Coding Level of Care Code Acute Code for Chg Fwd Diagnoses Other closed fracture of distal end of right fibula, initial encounter S82.831A Encounter type: initial encounter Fracture morphology: other fracture Left foot pain M79.672
[2023-08-12] MEDS: lidocaine 5% Patch 1 PATCH TOPICAL (09:43)
[2023-08-12 11:01] LABS: Glucose Point of Care 135 mg/dL (70-110)
--- NOTE | 2023-08-12 11:04 | XRR_ITS ---
PROCEDURE INFORMATION: Exam: XR Left Foot Exam date and time: 08/12/2023 1:24 PM Age: 83 years old Clinical indication: Left; Patient HX: Lt foot pain/swelling after fall TECHNIQUE: Imaging protocol: Radiologic exam of the left foot. Views: 3 or more views. COMPARISON: US soft tissue/extremity [id number] 10/12/2022 11:59 AM FINDINGS: Bones/joints: The bony structures demonstrate diffuse osteopenia. No fracture. Soft tissues: Normal. XR/XR foot LT min 3V* [id number] IMPRESSION: I see no acute abnormality.
--- NOTE | 2023-08-12 15:46 | P.DS_ITS ---
Discharge Providers Date of Admission: 08/09/23 18:56 Date of Discharge: August 12, 2023 Attending Provider at Admission: Rose Marie Moreno MD Attending Provider at Discharge: Bandar Jane Primary Care Provider: MARLO Sharma Diagnoses at Discharge Discharge Diagnosis (1) Closed fracture of right distal fibula: Status: Acute Qualifiers: Encounter type: initial encounter Fracture morphology: other fracture Qualified Code(s): S82.831A - Other fracture of upper and lower end of right fibula, initial encounter for closed fracture (2) Left foot pain: Status: Acute Reason for Visit Reason for Visit: stoke symptoms, face and eye droop Brief History: Felicitas Augustine is a 83 year old female with a past medical history of chronic lymphocytic leukemia, with history of lymphadenopathy with biopsy, currently not on treatment, history of myasthenia, history of endometrial cancer, history of brainstem tumor, insulin-dependent type 2 diabetes mellitus, hypothyroidism, history of recurrent UTIs, who presents to [facility] due to weakness, fatigue, poor appetite, acute on chronic confusion. Currently patient alert to person, to place, not to time she can follow all commands, no facial droop no slurring of words no focal weakness or complaint is is that a few days ago she fell and she twisted her right ankle her right ankle is hurting her right foot is hurting her and she has acute on chronic and right neck pain and right shoulder pain, denies any chest pain, shortness of breath no abdominal pain, no dysuria, no flank pain, she does report poor appetite, patient's son at bedside, who patient lives with tells me that she has been slowly declining for the last few months, increasingly confused at times, less mobile, she is completely wheelchair-bound, less ambulatory, he has a hospital bed for her, requires assistance activities of daily living, initially there was concerns for left-sided facial droop, on my examination and a stroke scale is 0, she had a stroke evaluation in the emergency room, CTA head and neck had no acute evidence of bleed, but did show left vertebral artery stenosis Hospital Course Hospital Course He was admitted and treated for urinary tract infection with gradual improvement in encephalopathy. Was found to have severe pain in the right posterior neck, previously with cervical spine surgery, has had a fall in June, has had pain since then but quite severe noted on exam, no wound dehiscence, superficial erythema, swelling, assessed by CT cervical spine, noted hardware in place, stable chronic deformity of left occipital bone with adjacent soft tissue calcifications, suggestive of remote trauma. Stable moderate to severe chronic degenerative changes without severe spinal stenosis. Incidentally also noted to stable subcentimeter hyperdense extra-axial mass on the left side anterior lateral to the inferior cookie. Favored meningioma. Urine culture eventually grew Klebsiella resistant to Unasyn. She was initially having pain in the right foot which she had also injured in the fall a week back. Ankle and foot x-ray in ER without fracture, with persistent pain/swelling, difficulty weightbearing additionally assessed with ankle and foot CT, no fracture in the foot, but found to have nondisplaced comminuted fracture of distal fibula and ankle CT as well as age-indeterminate avulsion injury of the inferior aspect of the medial malleolus. Diffuse soft tissue swelling. Due to pain, difficulty with ambulation, further fall risk discussed with podiatry, was consulted, management options were discussed with her and she was fitted with an ASO to the right ankle, may weight-bear as tolerated with ASO and is to follow-up with podiatry in the office. Left foot x-ray was assessed as well and unremarkable. She is referred for reassessment by spine surgery in office, fitted with cervical collar which has helped her pain tremendously has pain mostly with head movement, instructed not to wear her brace at all times and remove once pain starting to improve. Prescribed lidocaine patch, but has not required some low- dose hydrocodone which per discussion of risk factors with her and normally was also provided with prescription for short supply. Was assessed by PT and fall prevention instructions provided. Physical Exam Narrative: Visited by son. hard of hearing since battery and hearing aids. Const: COMMON NORMALS: patient oriented x3 and alert GENERAL APPEARANCE: cooperative ORIENTATION/CONSCIOUSNESS: Yes awake HENMT: COMMON NORMALS: oropharynx normal Neck/C-Spine: COMMON NORMALS: no JVD OTHER: Pain posterior right cervical spine/upper back much better with treatment and collar. No erythema, no visible swelling. Resp: COMMON NORMALS: normal respiratory effort and clear to auscultation bilaterally AUSCULTATION: clear to auscultation bilaterally Cardio: COMMON NORMALS: no JVD, regular rhythm, S1 normal heart sound present, S2 normal heart sound present and No murmurs present (Cardio) RHYTHM: regular rhythm HEART SOUNDS: S1 normal heart sound present and S2 normal heart sound present GI: COMMON NORMALS: Normal to inspection, nondistended, normoactive bowel sounds present, Soft to palpation and non-tender PALPATION: Yes Soft to palpation Extremity: COMMON NORMALS: no joint enlargement and no pedal edema Neuro: COMMON NORMALS: patient oriented x3 and moves all extremities SENSORIUM/ORIENTATION: Yes alert Skin: COMMON NORMALS: no rashes or lesions noted GENERAL SKIN EXAM: no rashes or lesions noted Discharge Data Studies Completed and Pending Completed Studies During Hospitalization Category Date Time Status CT angio headneck* [id number] Stat Cat Scan 08/09/23 15:[address] ankle RT wo con* [id number] Routine Cat Scan 08/11/23 11:[address] cervical spin wo con* [id number] Routine Cat Scan 08/10/23 16:[address] foot RT wo con* [id number] Routine Cat Scan 08/11/23 11:56 Completed XR ankle RT 2V [id number] Routine Exams 08/09/23 20:58 Completed XR cervical spine 3V* [id number] Routine Exams 08/09/23 20:58 Completed XR chest 1V portable [id number] Stat Exams 08/09/23 15:31 Completed XR foot LT min 3V* [id number] Routine Exams 08/12/23 11:04 Completed XR foot RT 2V [id number] Routine Exams 08/09/23 20:58 Completed XR shoulder RT min 2V* [id number] Routine Exams 08/09/23 20:58 Completed Pending at discharge Category Date Time Status Basic Metabolic Panel AM LABS Lab 08/13/23 04:00 Ordered Blood Cultures ([facility]) Routine Lab 08/09/23 22:27 Received Blood Cultures ([facility]) Routine Lab 08/09/23 22:36 Received Complete Blood Count w/Auto AM LABS Lab 08/13/23 04:00 Ordered Radiology Impressions Chest X-Ray 08/09/23 15:31 IMPRESSION: No acute pathology given AP technique. Head/Neck CTA 08/09/23 15:31 IMPRESSION: 1. Moderate focal stenosis of the left vertebral artery. 2. Otherwise patent [id number]. 3. Old questionable left occipital condyle fracture. IMPRESSION: 1. Mild stenosis of the proximal right internal carotid artery. 2. Mild stenosis of the proximal left subclavian artery. 3. Severe stenosis at the origin of the left vertebral artery without significant change. 4. Bilateral axillary lymphadenopathy. REFERENCES: NASCET CRITERIA. The degree of stenosis in the cervical segment of the internal carotid artery is based on NASCET criteria. Normal is no stenosis. Mild is less than 50% stenosis. Moderate is 50-69% stenosis. Severe is 70% to 99% stenosis. Total occlusion is no detectable patent lumen. Ankle X-Ray 08/09/23 20:58 IMPRESSION: No acute fracture. Cervical Spine X-Ray 08/09/23 20:58 IMPRESSION: Osteopenia and degenerative changes. No fracture is identified. Shoulder X-Ray 08/09/23 20:58 IMPRESSION: Osteopenia. No acute fracture identified. Cervical Spine CT 08/10/23 16:52 IMPRESSION: 1. No acute abnormality. 2. Stable chronic deformity of the left occipital bone with adjacent soft tissue calcifications, suggesting remote trauma. 3. Status post C1, C2, and C3 laminectomies. 4. Stable vivbwizi-nl-zepqph chronic degenerative changes without severe spinal stenosis. 5. A stable subcentimeter hyperdense extra-axial mass on the left side anterolateral to the inferior cookie. Favor meningioma. Foot CT 08/11/23 11:56 IMPRESSION: No evidence of foot fracture or dislocation. See accompanying ankle CT report for description of distal fibular fracture and avulsion fracture of the inferior medial malleolus. Ankle CT 08/11/23 11:57 IMPRESSION: Comminuted nondisplaced fracture of the distal fibula. Age indeterminate avulsion injury of the inferior aspect of the medial malleolus. Diffuse soft tissue swelling. Foot X-Ray 08/12/23 11:04 IMPRESSION: I see no acute abnormality. Laboratory Results WBC 57.26 10^3/uL (3.29-11.43) H* 08/12/23 05:20 RBC 4.00 10^6/uL (3.85-5.65) 08/12/23 05:20 Hgb 12.00 g/dL (11.27-16.99) 08/12/23 05:20 Hct 36.7 % (36-47) 08/12/23 05:20 MCV 91.8 fl (85-98) 08/12/23 05:20 MCH 30.0 pg (27-33) 08/12/23 05:20 MCHC 32.7 g/dL (30-55) D 08/12/23 05:20 RDW 13.4 % (12.1-15.1) 08/12/23 05:20 Plt Count 138 10^3/cmm (157-399) L 08/12/23 05:20 MPV 9.4 fL (7.4-10.4) 08/12/23 05:20 Neut % (Auto) 5.7 % 08/12/23 05:20 Lymph % (Auto) 87.3 % 08/12/23 05:20 Early % (Auto) 6.1 % 08/12/23 05:20 Eos % (Auto) 0.4 % 08/12/23 05:20 Baso % (Auto) 0.3 % 08/12/23 05:20 Neut # (Auto) 3.25 10^3/uL (1.8-7.7) 08/12/23 05:20 Lymph # (Auto) 50.0 10^3/uL (0.8-4.8) H 08/12/23 05:20 Early # (Auto) 3.5 10^3/uL (0.2-0.9) H 08/12/23 05:20 Eos # (Auto) 0.2 10^3/uL (0.0-0.8) 08/12/23 05:20 Baso # (Auto) 0.2 10^3/uL (0.0-0.1) H 08/12/23 05:20 Nucleated RBC % (auto) 0 % 08/12/23 05:20 Total Counted 100 (0-100) 08/10/23 02:24 Atypical Lymphs % 44.0 % (0-5) H 08/10/23 02:24 Absolute Neutrophils 3.9 10^3/cmm (1.4-6.5) 08/09/23 15:37 Segmented Neutrophils 10 % 08/10/23 02:24 Abs Segm Neuts (Man) 5.4 10/cmm (1.6-7.1) 08/10/23 02:24 Band Neutrophils Not Reportable 08/10/23 02:24 Abs Band Neuts (Man) 0.0 10^3/cmm (0.0-1.2) 08/09/23 15:37 Absolute Lymphocytes 45.2 10^3/cmm (1.2-3.4) H 08/10/23 02:24 Lymphocytes (Manual) 40 % 08/10/23 02:24 Monocytes (Manual) 6.0 % 08/10/23 02:24 Absolute Monocytes 3.2 10^3/cmm (0.1-0.6) H 08/10/23 02:24 Eosinophils (Manual) 0 % 08/10/23 02:24 Absolute Eosinophils 0.0 10^3/cmm (0.0-0.7) 08/10/23 02:24 Basophils (Manual) 0.0 % 08/10/23 02:24 Absolute Basophils 0.0 10^3/cmm (0.0-0.2) 08/10/23 02:24 Nucleated RBCs # 0.0 /100WBC 08/12/23 05:20 Smudge Cells 1+ H 08/10/23 02:24 Platelet Estimate Decreased (Normal) L 08/10/23 02:24 PT 13.60 SECONDS (12.1-14.9) 08/09/23 15:37 INR 1.01 (0.8-1.2) 08/09/23 15:37 Sodium 145 mmol/L (136-145) 08/12/23 05:20 Potassium 3.9 mmol/L (3.5-5.1) 08/12/23 05:20 Chloride 110 mmol/L (98-107) H 08/12/23 05:20 Carbon Dioxide 29 mmol/L (22-29) 08/12/23 05:20 Anion Gap 9.9 (5-19) 08/12/23 05:20 BUN 7 mg/dL (8-23) L 08/12/23 05:20 Creatinine 0.7 mg/dL (0.5-0.9) 08/12/23 05:20 GFR Calculation Not Reportable 08/12/23 05:20 Glucose 68 mg/dL (65-115) 08/12/23 05:20 POC Glucose 135 mg/dL (70-110) H 08/12/23 10:53 Estimat Average Glucose 137 08/10/23 02:24 Hemoglobin A1c 6.4 % (4.0-6.0) H 08/10/23 02:24 Calculated Osmolality 296 mOsm/kg (285-295) H 08/12/23 05:20 Calcium 8.6 mg/dL (8.5-10.5) 08/12/23 05:20 Phosphorus 3.9 mg/dL (2.5-4.5) 08/10/23 02:24 Magnesium 2.2 mg/dL (1.7-2.3) 08/10/23 02:24 Total Bilirubin 0.3 mg/dL (0.15-1.2) 08/10/23 02:24 AST 16 U/L (0-32) 08/10/23 02:24 ALT 9 U/L (0-33) 08/10/23 02:24 Alkaline Phosphatase 69 U/L (35-105) 08/10/23 02:24 Troponin T Baseline 8 ng/L (0-10) 08/09/23 22:27 Troponin T 120 Minute 7.17 ng/L (0-10) 08/10/23 00:00 Delta Troponin T -0.83 ABS# (0-10) L 08/10/23 00:00 Troponin T Hi Sens 6Hr 8.56 ng/L (0-10) 08/10/23 02:24 Troponin T Hi Sens 6Hr Delta 0.56 ng/L (0-12) 08/10/23 02:24 C-Reactive Protein 5.0 mg/L (0.0-4.9) H 08/09/23 16:03 NT-Pro-B Natriuret Pep 157 pg/mL (0-450) 08/10/23 02:24 Total Protein 5.5 g/dL (6.6-8.7) L D 08/10/23 02:24 Albumin 3.5 g/dL (3.5-5.2) 08/10/23 02:24 Globulin 2.0 g/dL (1.3-4.6) 08/10/23 02:24 Triglycerides 110 mg/dL (0-150) 08/10/23 02:24 Cholesterol 92 mg/dL (0-200) 08/10/23 02:24 LDL Cholesterol, Calc 43 mg/dL (50-129) L 08/10/23 02:24 HDL Cholesterol 27 mg/dL (60-100) L 08/10/23 02:24 LDL/HDL Ratio 1.59 RATIO (0.00-3.22) 08/10/23 02:24 Cholesterol/HDL Ratio 3.41 mg/dL (0.0-4.40) 08/10/23 02:24 Procalcitonin 0.05 ng/mL (0-0.5) 08/09/23 16:03 TSH 0.86 uIU/mL (0.27-4.20) 08/09/23 15:37 Urine Color Light yellow (Yellow) 08/09/23 17:17 Urine Appearance Cloudy (CLEAR) A 08/09/23 17:17 Urine pH 6 (5-7) 08/09/23 17:17 Ur Specific [place] 1.015 (1.005-1.030) 08/09/23 17:17 Urine Protein Trace (Negative) 08/09/23 17:17 Urine Glucose (UA) Norm (Normal) 08/09/23 17:17 Urine Ketones Negative (Negative) 08/09/23 17:17 Urine Blood 2+ (Negative) H 08/09/23 17:17 Urine Nitrate Positive (Negative) H 08/09/23 17:17 Urine Bilirubin Neg (Negative) 08/09/23 17:17 Urine Urobilinogen Norm mg/dL (Negative) 08/09/23 17:17 Ur Leukocyte Esterase 2+ (Negative) H 08/09/23 17:17 Urine RBC 5-10 /hpf (0-2) H 08/09/23 17:17 Urine WBC Too numerous to cnt /hpf (0-5) H 08/09/23 17:17 Ur Squamous Epith Cells 0-4 /hpf (0-5) H 08/09/23 17:17 Amorphous Sediment Not Reportable 08/09/23 17:17 Urine Bacteria 2+ /hpf (NONE) H 08/09/23 17:17 Urine Mucus 1+ /hpf 08/09/23 17:17 Adenovirus (PCR) Not detected (NOT DETECT) 08/09/23 23:50 C. pneumoniae DNA (PCR) Not detected (NOT DETECT) 08/09/23 23:50 Coronavirus 229E (PCR) Not detected (NOT DETECT) 08/09/23 23:50 Human Metapneumovir PCR Not detected (NOT DETECT) 08/09/23 23:50 Influenza A (H1) PCR Not detected (NOT DETECT) 08/09/23 23:50 Influ A (H1/09) PCR Not detected (NOT DETECT) 08/09/23 23:50 Influenza A (H3) PCR Not detected (NOT DETECT) 08/09/23 23:50 Influenza Type A (PCR) Not detected (NOT DETECT) 08/09/23 23:50 Influenza Type B (PCR) Not detected (NOT DETECT) 08/09/23 23:50 M. pneumoniae (PCR) Not detected (NOT DETECT) 08/09/23 23:50 Parainfluenza 1 (PCR) Not detected (NOT DETECT) 08/09/23 23:50 Parainfluenza 2 (PCR) Not detected (NOT DETECT) 08/09/23 23:50 Parainfluenza 3 (PCR) Not detected (NOT DETECT) 08/09/23 23:50 Parainfluenza 4 (PCR) Not detected (NOT DETECT) 08/09/23 23:50 RSV Type A (PCR) Not detected (NOT DETECT) 08/09/23 23:50 RSV Type B (PCR) Not detected (NOT DETECT) 08/09/23 23:50 Entero/Rhino (PCR) Not detected (NOT DETECT) 08/09/23 23:50 SARS-CoV-2 (PCR) Not detected (NOT DETECT) 08/09/23 23:50 Vitals Last Vital Signs Temp 97.8 F 08/12/23 12:13 Pulse 60 08/12/23 12:13 Resp 18 08/12/23 12:13 BP 123/63 08/12/23 12:13 Pulse Ox 97 08/12/23 12:13 O2 Del Method Nasal Cannula 08/12/23 12:13 O2 Flow Rate 2 08/12/23 12:13 Discharge Plan Discharge Patient Disposition: Home Health Service Condition: Stable Prescriptions: New cefdinir 300 mg capsule 300 mg PO BID 5 Days Qty: 10 0RF lidocaine 5 % Adhesive Patch,Medicated 1 patch topical [id number] Qty: 30 0RF hydrocodone-acetaminophen 5-325 mg Tablet 1 tab PO Q4H PRN (Reason: Moderate Pain) Qty: 10 0RF Continued (DME) lancets [TRUEplus Lancets] 33 gauge misc See Rx Instructions .Route Qty: 100 5RF Rx Instructions: use one 3 times day (DME) FreeStyle William 2 [place] [facility] See Rx Instructions .ROUTE .MEDSUPPLY Qty: 1 0RF Rx Instructions: As directed albuterol sulfate [Proventil HFA] 90 mcg/actuation HFA aerosol inhaler 2 puff INHALATION QID PRN (Reason: Shortness Of Breath) Qty: 6.7 1RF albuterol sulfate 2.5 mg /3 mL (0.083 %) solution for nebulization 2.5 mg inhalation QID PRN (Reason: shortness of breath or wheezing) Qty: 360 3RF medical marijuana capsule See Rx Instructions .ROUTE .COMPLEX Rx Instructions: USE DIRECTED furosemide 20 mg tablet 20 mg PO BID PRN (Reason: edema) Qty: 180 1RF tolterodine [Detrol] 2 mg tablet 2 mg PO DAILY Qty: 90 1RF (DME) Power chair repair See Rx Instructions .Route .MEDSUPPLY Qty: 1 0RF Rx Instructions: Repair power chair and maintenance (DME) pen needle, diabetic, safety [DropSafe Pen Needle] 31 gauge x 3/16 needle See Rx Instructions .Route Qty: 300 2RF Rx Instructions: use 4 day simvastatin 20 mg tablet 20 mg PO BEDTIME Qty: 90 1RF insulin aspart U-100 [Novolog FlexPen U-100 Insulin] 100 unit/mL (3 mL) insulin pen See Rx Instructions SUBCUT TID Qty: 15 2RF Rx Instructions: 110-129=3U 130-150=6U 151-200=9U 201-250=12U 251-300=15U 301-350=18U 351- 400=21U >400=24U SUBCUT three times daily; (DME) FreeStyle William 2 Sensor Kit See Rx Instructions .ROUTE .MEDSUPPLY Qty: 2 11RF Rx Instructions: change every 14 days cefuroxime axetil 500 mg tablet 500 mg PO BID Qty: 20 0RF Airborne Gummy 250-11.66 mg tablet,chewable 1 tab PO DAILY aspirin 81 mg tablet,delayed release (DR/EC) 81 mg PO QAM levothyroxine 88 mcg tablet 88 mcg PO QAM Toujeo Max U-300 SoloStar 300 unit/mL (3 mL) insulin pen See Rx Instructions .ROUTE .COMPLEX Rx Instructions: INJECT up to 80 UNITS subcutaneously daily. Vega WebKitephere 160-9-4.8 mcg/actuation HFA aerosol inhaler 2 inh inhalation BID PRN (Reason: Shortness Of Breath) Changed diazepam 2 mg tablet 1 mg PO TID PRN (Reason: muscle spasm) Qty: 60 2RF Discharge Orders: Discharge Order (Routine); Ordered 08/12/23 Ordered By: Bandar Jane Other Ambulatory Orders: DME: [employer] (Order) Location: None Selected Ordered By: Bandar Jane Referrals: Victor M Dukes DO [Physician] - 1 week (R posterior neck pain after fall, Hx C spine surgery We have notified your physician's clinic of the need for a follow-up appointment to be scheduled. If you have not heard from them within the next 2 business days, please call them directly. ) Elmer Quezada DPM [Physician] - 2 weeks (We have notified your physician's clinic of the need for a follow-up appointment to be scheduled. If you have not heard from them within the next 2 business days, please call them directly. ) Adam Anguiano, HAMMER ADJUSTER-C [Primary Care Provider] - 4-7 days (We have notified your physician's clinic of the need for a follow-up appointment to be scheduled. If you have not heard from them within the next 2 business days, please call them directly. ) Discharge Diet: As Directed Discharge Activity: Limit activity as instructed Patient Instructions: Hydrocodone/Acetaminophen (By mouth), Cefdinir (By mouth) (Omnicef), Lidocaine Patch (On the skin), Fall Prevention (GEN), Urinary Tract Infection in Older Adults (GEN), Aspiration Precautions (GEN), Opioid Safety Activity Restrictions/Additional Instructions: Complete antibiotic course for urinary tract infection. Follow-up with your primary doctor for reassessment of improvement of generalized weakness. Follow-up with your primary doctor as well as with orthopedics with regards to posterior right neck pain, history of spine surgery, as well as right ankle/foot pain after recent falls. Follow-up with your primary doctor for reassessment and follow-up of subcentimeter hypodense extra-axial mass on the left side of cookie in the brain. Do not wear the cervical collar at all times. Take breaks from it to prevent muscle atrophy. Once pain is improving in severity discontinue the collar. You can consider obtaining a soft collar for mild or additional support. Weightbearing as tolerated below threshold of pain to the right ankle with ASO. Follow-up with podiatry regarding right ankle fractures. Maintain strict fall precautions. Avoid injury at all costs. Continue follow-up with hematology for CLL. Continue aspiration precautions, dysphagia level 5 diet with minced and moist foods with mildly thickened liquids. Discharge Attestations Time Spent in Discharge Care*: greater than 30 min Quality Metrics Clinical Quality Measures [ No reported AMI, CVA or VTE this stay] Coding Level of Care Code Acute Code for Chg Fwd Diagnoses Other closed fracture of distal end of right fibula, initial encounter S82.832E Encounter type: initial encounter Fracture morphology: other fracture Left foot pain M79.672
== END 2023-08-12 16:54 | disposition home health service (06) | DRG 690 ==
LOC: ER 18:34 → MEDSURG 18:57
PROVIDERS: Family Medicine; Admitting Provider Internal Medicine; Emergency Provider Emergency Medicine; PCP Nurse Practitioner; Visit Provider Internal Medicine
DX: N39.0 Urinary tract infection, site not specified (principal); C91.10 Chronic lymphocytic leukemia of B-cell type not having achieved remission; G93.40 Encephalopathy, unspecified; B96.1 Klebsiella pneumoniae [K. pneumoniae] as the cause of diseases classified elsewhere; I25.10 Atherosclerotic heart disease of native coronary artery without angina pectoris; G70.00 Myasthenia gravis without (acute) exacerbation; I10 Essential (primary) hypertension; J44.9 Chronic obstructive pulmonary disease, unspecified; E78.5 Hyperlipidemia, unspecified; F41.8 Other specified anxiety disorders; E03.9 Hypothyroidism, unspecified; E11.40 Type 2 diabetes mellitus with diabetic neuropathy, unspecified; E11.65 Type 2 diabetes mellitus with hyperglycemia; Z79.4 Long term (current) use of insulin; Z86.011 Personal history of benign neoplasm of the brain; D32.9 Benign neoplasm of meninges, unspecified; Z87.440 Personal history of urinary (tract) infections; Z99.3 Dependence on wheelchair; I65.02 Occlusion and stenosis of left vertebral artery; H91.93 Unspecified hearing loss, bilateral; Z97.4 Presence of external hearing-aid; M79.672 Pain in left foot; M25.511 Pain in right shoulder; M54.2 Cervicalgia; Z87.891 Personal history of nicotine dependence; S82.831A Other fracture of upper and lower end of right fibula, initial encounter for closed fracture; W18.11XA Fall from or off toilet without subsequent striking against object, initial encounter; Z91.81 History of falling; Y92.002 Bathroom of unspecified non-institutional (private) residence as the place of occurrence of the external cause
CPT/HCPCS: 11721; 36415; 36416; 70496; 70498; 71045; 72040; 72125; 73030; 73600; 73620; 73630; 73700; 80048; 80053; 80061; 81001; 82962; 83036; 83735; 83880; 84100; 84145; 84443; 84484; 85007; 85025; 85610; 86140; 87040; 87077; 87086; 87186; 87486; 87581; 87633; 92610; 93005; 94640; 94664; 96365; 96372; 97110; 97163; 97167; 97530; 97535; 97760; 99285; C9113; J0696; J1650; J1815; J2270; J7040; J7042; J7613; J7626; L0172; Q9967

== ENCOUNTER → 2023-08-16 13:15 | Outpatient (BNVA) | payer MEDICARE, OTHER, SELFPAY | PROVIDERS: PCP Nurse Practitioner; Visit Provider Psychiatry & Neurology Neurology | DX: G70.00 Myasthenia gravis without (acute) exacerbation (principal); H53.2 Diplopia; G96.9 Disorder of central nervous system, unspecified; R25.1 Tremor, unspecified; Z87.891 Personal history of nicotine dependence | CPT/HCPCS: 99212 ==

== ENCOUNTER → 2023-08-17 09:03 | Outpatient (BNVA) | payer MEDICARE, OTHER, SELFPAY | PROVIDERS: PCP Nurse Practitioner; Visit Provider Podiatrist Foot & Ankle Surgery | DX: S82.831D Other fracture of upper and lower end of right fibula, subsequent encounter for closed fracture with routine healing (principal); E11.65 Type 2 diabetes mellitus with hyperglycemia; Z79.4 Long term (current) use of insulin; X58.XXXD Exposure to other specified factors, subsequent encounter | CPT/HCPCS: 99213 ==

== ENCOUNTER → 2023-08-25 13:25 | Outpatient (BNVA) | payer MEDICARE, OTHER, SELFPAY | PROVIDERS: PCP Nurse Practitioner; Referring Provider Internal Medicine; Visit Provider Orthopaedic Surgery | DX: M47.22 Other spondylosis with radiculopathy, cervical region; Z95.0 Presence of cardiac pacemaker | CPT/HCPCS: 99204 ==

== ENCOUNTER 2023-09-04 16:26 | Observation (INO) | payer MEDICARE, OTHER, SELFPAY ==
[2023-09-04] VITALS (7 sets, daily range): BP systolic 94–132; BP diastolic 45–64; PULSE 48–86; RESP 12–20; TEMP 36.3–36.6; O2SAT 92–96; BMI 27.4; BMI 26.1
--- NOTE | 2023-09-04 17:06 | ECG_ITS ---
[facility] Test Date: 2023-09-04 Pat Name: Felicitas Augustine Department: Room: Gender: Female Personal Injury Litigation Paralegal: : 1940 Requested By: Amilcar Stout Order Number: [id number] Karma MD: Aimee Ramos M.D. Measurements Intervals [place] Rate: 74 P: 101 VA: 178 QRS: -49 QRSD: 103 T: 78 QT: 395 QTc: 439 Interpretive Statements ELECTRONIC ATRIAL PACEMAKER. Frequent premature ventricular contractions LEFT AXIS DEVIATION [QRS AXIS < -30] LOW QRS VOLTAGE IN PRECORDIAL LEADS [QRS DEFLECTION < 1.0 mV IN CHEST LEADS] PATTERN CONSISTENT WITH PULMONARY DISEASE INCOMPLETE RIGHT BUNDLE BRANCH BLOCK [90+ ms QRS DURATION, TERMINAL R IN V1/V2, 40+ ms S IN I/aVL/V4/V5/V6] MARKED ST ELEVATION, CONSIDER SEPTAL INJURY [MARKED ST ELEVATION W/O NORMALLY INFLECTED T-WAVE IN V1/V2] ACUTE NH WARNING: DATA QUALITY MAY AFFECT INTERPRETATION Compared to ECG 08/09/2023 15:24:37Left-axis deviation now present Left anterior fascicular block no longer present.ST (T wave) deviation still present Electronically Signed On 09-05-2023 0:41:04 JOURNEYMAN GLAZIER by Aimee Ramos M.D. [id number]
--- NOTE | 2023-09-04 17:06 | XR_ITS ---
WS: [id number] Exam: XR chest 1V portable [id number] Date/Time of Exam: 09/04/2023 5:23 PM Reason For Exam: weakness Comparison 08/09/2023. Ill-defined 8 mm nodular density in the RIGHT lower lobe. Chronic plaque atelectasis in the LEFT base . Normal cardiomediastinal silhouette. Unremarkable bony structures. Mild thoracic scoliosis. Permane nt cardiac pacer seen over the LEFT chest. IMPRESSION: 1. 8 mm ill-defined nodular density in the lateral aspect of the RIGHT lower lobe. 2. No other significant finding. Recommendations: A detailed nonemergent PA and lateral chest x-ray recommended for follow-up.
--- NOTE | 2023-09-04 17:12 | ED_ITS ---
HPI - Weakness 2 General: Chief complaint: Weakness Stated complaint: weakness, confusion Time Seen by Provider: 09/04/23 17:04 Source: patient Mode of arrival: ambulatory Limitations: no limitations History of Present Illness: 83-year-old female states she has been h aving weakness over the last 2 days. States last night she felt extremely weak was having a hard time getting out of bed patient states that she slept longer than usual today and has been extremely weak today states she can barely roll out of bed support global weakness no focal deficit. Patient's caregiver here said that she has been slower to respond as well home health was concerned she is having a TIA. She denies any fever denies any acute pain anywhere. Associated symptoms: Denies chest pain, chills, dysuria, fever(s), headache(s), nausea or vomiting Review of Systems 2 Const: Reports: fatigue and malaise; Denies: fever(s), chills or body aches Eyes: Denies: blurry vision or eye discomfort ENMT: Denies: throat pain or dental pain Card: Denies: chest pain Resp: Denies: dyspnea GI: Denies: abdominal pain, nausea, vomiting or diarrhea : Denies: dysuria Musc: Denies: neck pain or back pain Skin/Breast: Denies: rash Neuro: Reports: weakness in extremities; Denies: headache(s) PFSH ED 2 PFSH: Medical History Atherosclerosis of [place] coronary artery without angina pectoris Chronic lymphocytic leukemia Urolithiasis Left ureteral calculus Myasthenia gravis UTI (urinary tract infection) Diabetes mellitus with hyperglycemia, with long-term current use of insulin Environmental and seasonal allergies Essential hypertension, benign Pneumonia Hyperlipidemia Vitamin D deficiency Vitamin B 12 deficiency COPD (chronic obstructive pulmonary disease) Depression with anxiety Hypothyroidism Neuropathy Surgical History History of basal cell carcinoma (BCC) excision History of hysterectomy with bilateral oophorectomy For cervical cancer History of appendectomy History of colonoscopy with polypectomy (11/17/21) Pacemaker 04/05/2019 H/O thyroidectomy Total thyroidectomy followed by radioactive iodine ablation for thyroid cancer H/O reduction of closed fracture left wrist 10/23/2015 Hx of cholecystectomy H/O brain surgery Craniotomy x 4 for meningioma H/O esophagogastroduodenoscopy (11/17/21) 2013 Family History Mother , AT 92 Anesthesia complication CAD (coronary artery disease) Cancer Dementia Stroke Brother CAD (coronary artery disease) Cancer Suicide Sister CAD (coronary artery disease) Suicide Grandmother Cancer Dementia Stroke Family/Other Cancer Dementia Stroke Brother Suicide Brother Suicide Father , IN HIS 60'S Alcoholic Liver disease Denies family history of Diabetes Clotting disorder Chronic kidney disease (CKD) Bleeding disorder Lung disease Social History Smoking and tobacco/nicotine status: former use of tobacco/nicotine Quit status (tobacco/nicotine): has quit using Year quit tobacco: 1997 Former quit date comment: 1 ppd X 45 years Second hand smoke exposure: No Alcohol intake: unknown Substance/Drug Use: unknown Adopted: No Caregiver/support person: Yes Lives independently: No Household members: family Housing: House Marital status: / Number of children: 2 service: No Current occupational status: retired Current occupational exposures/hazards: No Do you think of yourself as: Straight/Heterosexual Physical Exam 2 Const: COMMON NORMALS: no acute distress, patient oriented x3 and healthy appearing HENMT: COMMON NORMALS: normocephalic and atraumatic HEAD & SCALP: n ormocephalic and atraumatic Eye: COMMON NORMALS: Equal, round and reactive pupils present and EOMs intact bilaterally PUPIL: Yes Equal, round and reactive pupils present Neck/C-Spine: COMMON NORMALS: full ROM and supple Chest: COMMONS NORMALS: normal inspection of the chest and normal palpation of entire chest wall Resp: COMMON NORMALS: normal respiratory effort, No retractions, No use of accessory muscles and clear to auscultation bilaterally AUSCULTATION: clear to auscultation bilaterally Cardio: COMMON NORMALS: regular rate, regular rhythm and No murmurs present (Cardio) RATE: regular rate RHYTHM: regular rhythm GI: COMMON NORMALS: Normal to inspection, nondistended, normoactive bowel sounds present, Soft to palpation, non-tender and no masses PALPATION: Yes Soft to palpation Extremity: COMMON NORMALS: normal to inspection and full ROM Neuro: COMMON NORMALS: patient oriented x3, moves all extremities and no focal motor deficits CRANIAL NERVES: Yes CN normal except as noted SPEECH: s peech normal Psych: COMMON NORMALS: mental status grossly normal, Normal thought process present and cooperative THOUGHT PROCESS: Normal thought process present Skin: COMMON NORMALS: no rashes or lesions noted and no wounds GENERAL SKIN EXAM: no rashes or lesions noted Course 2 Vital Signs: Vital signs: Vital Signs Temperature 97.8 F 09/04/23 16:31 Pulse Rate 68 09/04/23 19:00 Respiratory Rate 20 H 09/04/23 19:00 Blood Pressure 105/52 09/04/23 19:00 Pulse Oximetry 95 09/04/23 19:00 Oxygen Delivery Me thod Room Air 09/04/23 19:00 MDM - Weakness Medical Decision Making Patient presents with generalized weakness head CT shows no signs of CVA she has no focal deficits here. She has no chest or abdominal pain she is just feeling extremely weak spoke to hospitalist will admit for observation. Medical Records I reviewed the patient's medical records. Lab Data I reviewed the patient's lab results. 09/04/23 17:15 09/04/23 17:15 Laboratory Results WBC 37.38 10^3/uL (3.29-11.43) H* 09/04/23 17:15 RBC 3.98 10^6/uL (3.85-5.65) 09/04/23 17:15 Hgb 11.90 g/dL (11.27-16.99) 09/04/23 17:15 Hct 36.2 % (36-47) 09/04/23 17:15 MCV 91.0 fl (85-98) 09/04/23 17:15 MCH 29.9 pg (27-33) 09/04/23 17:15 MCHC 32.9 g/dL (30-55) 09/04/23 17:15 RDW 13.7 % (12.1-15.1) 09/04/23 17:15 Plt Count 128 10^3/cmm (157-399) L 09/04/23 17:15 MPV 9.1 fL (7.4-10.4) 09/04/23 17:15 Neut % (Auto) 8.7 % 09/04/23 17:15 Lymph % (Auto) 82.0 % 09/04/23 17:15 [place] % (Auto) 8.1 % 09/04/23 17:15 Eos % (Auto) 0.8 % 09/04/23 17:15 Baso % (Auto) 0.2 % 09/04/23 17:15 Neut # (Auto) 3.25 10^3/uL (1.8-7.7) 09/04/23 17:15 Lymph # (Auto) 30.6 10^3/uL (0.8-4.8) H 09/04/23 17:15 [place] # (Auto) 3.0 10^3/uL (0.2-0.9) H 09/04/23 17:15 Eos # (Auto) 0.3 10^3/uL (0.0-0.8) 09/04/23 17:15 Baso # (Auto) 0.1 10^3/uL (0.0-0.1) 09/04/23 17:15 Nucleated RBC % (auto) 0 % 09/04/23 17:15 Nucleated RBCs # 0.0 /100WBC 09/04/23 17:15 Sodium 144 mmol/L (136-145) 09/04/23 17:15 Potassium 4.0 mmol/L (3.5-5.1) 09/04/23 17:15 Chloride 108 mmol/L (98-107) H 09/04/23 17:15 Carbon Dioxide 28 mmol/L (22-29) 09/04/23 17:15 Anion Gap 12.0 (5-19) 09/04/23 17:15 BUN 13 mg/dL (8-23) 09/04/23 17:15 Creatinine 0.9 mg/dL (0.5-0.9) 09/04/23 17:15 GFR Calculation Not Reportable 09/04/23 17:15 Glucose 102 mg/dL (65-115) 09/04/23 17:15 POC Glucose 101 mg/dL (70-110) 09/04/23 17:19 Calculated Osmolality 298 mOsm/kg (285-295) H 09/04/23 17:15 Calcium 8.7 mg/dL (8.5-10.5) 09/04/23 17:15 Total Bilirubin 0.4 mg/dL (0.15-1.2) 09/04/23 17:15 AST 18 U/L (0-32) 09/04/23 17:15 ALT 11 U/L (0-33) 09/04/23 17:15 Alkaline Phosphatase 75 U/L (35-105) 09/04/23 17:15 Total Protein 5.9 g/dL (6.6-8.7) L 09/04/23 17:15 Albumin 3.9 g/dL (3.5-5.2) 09/04/23 17:15 Globulin 2.0 g/dL (1.3-4.6) 09/04/23 17:15 TSH 1.81 uIU/mL (0.27-4.20) 09/04/23 17:15 Urine Color Yellow (Yellow) 09/04/23 17:54 Urine Appearance Clear (CLEAR) 09/04/23 17:54 Urine pH 5 (5-7) 09/04/23 17:54 Ur Specific [place] 1.010 (1.005-1.030) 09/04/23 17:54 Urine Protein Neg (Negative) 09/04/23 17:54 Urine Glucose (UA) Norm (Normal) 09/04/23 17:54 Urine Ketones Negative (Negative) 09/04/23 17:54 Urine Blood Neg (Negative) 09/04/23 17:54 Urine Nitrate Negative (Negative) 09/04/23 17:54 Urine Bilirubin Neg (Negative) 09/04/23 17:54 Urine Urobilinogen Norm mg/dL (Negative) 09/04/23 17:54 Ur Leukocyte Esterase Negative (Negative) 09/04/23 17:54 All radiology interpretation(s) finalized by discharge Discharge Plan Discharge Patient Disposition: Placed in Observation Clinical Impression: Generalized weakness Condition: Stable Prescriptions: No Action (DME) lancets [TRUEplus Lancets] 33 gauge misc See Rx Instructions .Route Qty: 100 5RF Rx Instructions: use one 3 times day (DME) FreeStyle [place] 2 [place] Misc See Rx Instructions .ROUTE .MEDSUPPLY Qty: 1 0RF Rx Instructions: As directed albuterol sulfate 2.5 mg /3 mL (0.083 %) solution for nebulization 2.5 mg inhalation QID PRN (Reason: shortness of breath or wheezing) Qty: 360 3RF duloxetine [Cymbalta] 20 mg capsule,delayed release(DR/EC) 20 mg PO BID Qty: 60 0RF albuterol sulfate [Proventil HFA] 90 mcg/actuation HFA aerosol inhaler 2 puff INHALATION QID PRN (Reason: Shortness Of Breath) Qty: 6.7 1RF Toujeo Max U-300 SoloStar 300 unit/mL (3 mL) insulin pen See Rx Instructions .ROUTE .COMPLEX Qty: 12 1RF Rx Instructions: INJECT up to 80 UNITS subcutaneously daily. levothyroxine 88 mcg tablet 88 mcg PO QAM Qty: 90 1RF simvastatin 20 mg tablet 20 mg PO BEDTIME Qty: 90 1RF diazepam [Valium] 2 mg tablet 2 mg PO TID PRN (Reason: muscle spasm) Qty: 90 5RF medical marijuana capsule See Rx Instructions .ROUTE .COMPLEX Rx Instructions: USE DIRECTED furosemide 20 mg tablet 20 mg PO BID PRN (Reason: edema) Qty: 180 1RF cefdinir 300 mg capsule 300 mg PO BID celecoxib [Celebrex] 200 mg capsule 200 mg PO DAILY Qty: 60 0RF Rx Instructions: 2 times a day cyclobenzaprine 10 mg tablet 10 mg PO TID Qty: 90 0RF Rx Instructions: 3 times a day (DME) Power chair repair See Rx Instructions .Route .MEDSUPPLY Qty: 1 0RF Rx Instructions: Repair power chair and maintenance (DME) pen needle, diabetic, safety [DropSafe Pen Needle] 31 gauge x 3/16 needle See Rx Instructions .Route Qty: 300 2RF Rx Instructions: use 4 day insulin aspart U-100 [Novolog FlexPen U-100 Insulin] 100 unit/mL (3 mL) insulin pen See Rx Instructions SUBCUT TID Qty: 15 2RF Rx Instructions: 110-129=3U 130-150=6U 151-200=9U 201-250=12U 251-300=15U 301-350=18U 351- 400=21U >400=24U SUBCUT three times daily; (DME) FreeStyle William 2 Sensor Kit See Rx Instructions .ROUTE .MEDSUPPLY Qty: 2 11RF Rx Instructions: change every 14 days aspirin 81 mg tablet,delayed release (DR/EC) 81 mg PO QAM Breztri Aerosphere 160-9-4.8 mcg/actuation HFA aerosol inhaler 2 inh inhalation BID PRN (Reason: Shortness Of Breath) lidocaine 5 % Adhesive Patch,Medicated 1 patch topical [id number] Qty: 30 0RF hydrocodone-acetaminophen 5-325 mg Tablet 1 tab PO Q4H PRN (Reason: Moderate Pain) Qty: 10 0RF Referrals: Adam Anguiano, [facility] [Primary Care Provider] - Coding Level of Care Code ED Clinical Radiologist for Kina Jackson
--- NOTE | 2023-09-04 17:12 | CT_ITS ---
WS: [id number] CT HEAD NONCONTRAST HISTORY: weakness TECHNIQUE: Contiguous axial imaging performed through the brain in 2.5 mm imaging. Bone and soft tiss ue windows. Sagittal and coronal reformats reviewed. All CT scans at [facility] use at least one of these dose optimization techniques: automated exposure control; mA and/or kV adjustment per pa tient size (includes targeted exams where dose is matched to clinical indication); or iterative recon struction. DLP: 1093.98 mGy.cm COMPARISON: 04/28/2023 No acute intracranial hemorrhage, midline shift or mass effect. Moderate symmetric atrophy and small vessel ischemic disease. Reidentified are the benign calcificati ons noted along the inferior LEFT cerebellum which have been present on multiple prior examinations. There is a small lacunar infarct in the RIGHT thalamus which is stable. Ventricles: Normal size with no hydrocephalus. Paranasal sinuses: As visualized are clear. Mastoid air cells: Abnormal configuration of the LEFT mastoid air cells. There is chronic increased s oft tissue. The hypertrophic bone formation and groundglass attenuation involving the LEFT occipital condyle and cerebellum with encroachment upon the brainstem is stable. There is mild encroachment upo n the cervical medullary junction. Calvarium and scalp: Skull is intact with no soft tissue edema or swelling. IMPRESSION: 1. No acute intracranial hemorrhage or edema. 2. Long-term stability of abnormal calcification and bone formation involving the LEFT foramen magnu m and occiput with encroachment upon the cervical medullary junction. This is been present for multip le years with no interval change. 3. Areas of increased density in the cerebellum consistent with calcification which is also been pre sent on multiple prior studies.
[2023-09-04 17:21] LABS: Glucose Point of Care 101 mg/dL (70-110)
--- NOTE | 2023-09-04 17:21 | PC.NURSE ---
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
[2023-09-04 17:25] LABS: Basophils # 0.1 10^3/uL (0.0-0.1); Basophils % 0.2 %; Eosinophils # 0.3 10^3/uL (0.0-0.8); Eosinophils % 0.8 %; Hematocrit 36.2 % (36-47); Lymphocytes # 30.6 10^3/uL (0.8-4.8); Mean Corpuscular HGB Conc 32.9 g/dL (30-55); Mean Corpuscular Hemoglobin 29.9 pg (27-33); Mean Platelet Volume 9.1 fL (7.4-10.4); Monocytes % 8.1 %; Neutrophils # 3.25 10^3/uL (1.8-7.7); Neutrophils % 8.7 %; Nucleated Red Blood Cells % 0 %; Platelet Count 128 10^3/cmm (157-399); Red Blood Count 3.98 10^6/uL (3.85-5.65); Red Cell Distribution Width 13.7 % (12.1-15.1)
[2023-09-04 17:41] LABS: Slide Review Slide Review Perform; White Blood Count 37.38 10^3/uL (3.29-11.43)
[2023-09-04 17:51] LABS: Alanine Aminotransferase 11 U/L (0-33); Albumin Level 3.9 g/dL (3.5-5.2); Alkaline Phosphatase 75 U/L (35-105); Aspartate Amino Transferase 18 U/L (0-32); Blood Urea Nitrogen 13 mg/dL (8-23); Calcium 8.7 mg/dL (8.5-10.5); Carbon Dioxide 28 mmol/L (22-29); Chloride 108 mmol/L (98-107); Creatinine Clr Calc Pharmacy 46.0968; Glucose 102 mg/dL (65-115); Osmolality Calculated 298 mOsm/kg (285-295); Sodium 144 mmol/L (136-145); Thyroid Stimulating Hormone 1.81 uIU/mL (0.27-4.20); Total Bilirubin 0.4 mg/dL (0.15-1.2); Total Protein 5.9 g/dL (6.6-8.7)
[2023-09-04 17:57] LABS: Add Urine Microscopic? NO; Charge for UA Resulting for Rev
[2023-09-04 18:10] LABS: Bilirubin Urine Neg (Negative); Blood Urine Neg (Negative); Glucose Urine UA Norm (Normal); Ketones Urine Negative (Negative); Leukocyte Esterase Urine Negative (Negative); Nitrate Urine Negative (Negative); Protein Urine Neg (Negative); Urine Appearance Clear (CLEAR); Urine Color Yellow (Yellow); Urobilinogen Urine Norm (Negative); pH Urine 5 (5-7)
[2023-09-04 20:06] LABS: Troponin(5th) Baseline 10 ng/L (0-10)
--- NOTE | 2023-09-04 20:06 | ECG_ITS ---
[facility] Test Date: 2023-09-04 Pat Name: Felicitas Augustine Department: Room: Gender: Female It Associate: : 1940 Requested By: Amilcar Stout Order Number: [id number] Karma MD: Aimee Ramos M.D. Measurements Intervals [place] Rate: 76 P: 91 GA: 177 QRS: -46 QRSD: 98 T: 72 QT: 386 QTc: 435 Interpretive Statements ELECTRONIC ATRIAL PACEMAKER with frequent PVCs LEFT AXIS DEVIATION [QRS AXIS < -30] LOW QRS VOLTAGE [QRS DEFLECTION < 0.5/1.0 mV IN LIMB/CHEST LEADS] PATTERN CONSISTENT WITH PULMONARY DISEASE MARKED ST ELEVATION, CONSIDER SEPTAL INJURY [MARKED ST ELEVATION W/O NORMALLY INFLECTED T-WAVE IN V1/V2] ACUTE [place] Compared to ECG 09/04/2023 17:18:38 Incomplete right bundle-branch block no longer present ST (T wave) deviation still present Electronically Signed On 09-05-2023 0:42:35 [employer]RILL [employer] by Aimee Ramos M.D. [id number]
--- NOTE | 2023-09-04 20:21 | P.HP_ITS ---
Providers/Chief Complaint 2 Admitting Physician: Bandar Jane Primary Care Provider: Adam Anguiano, TOOLMAN-C Chief Complaint: weakness, confusion History of Present Illness 83-year-old lady with myasthenia gravis, CLL, DM2, COPD, hypothyroidism, history of syncope/sinus node dysfunction status post PPM, history of brainstem meningioma, falls, remote neck trauma, status post cervical fusion, recurrent UTIs, recent hospitalization with acute encephalopathy, UTI, severe back pain, finding of right ankle fracture, worse urine for UTI, no new injury noted in the neck, was set up with cervical collar, ASO orthosis for right ankle fracture with outpatient follow-up. She comes to the hospital due to generalized weakness, feeling tired and worn out specially in the last 2 days, her son states that she was having episodes where she was weak and unsteady, weak to the point of being able to hold up her head, but also not seeing well and having slurred speech. Reportedly she was losing her vision during episodes driving into things with her motorized wheelchair. Her son provides most of the history. She was able to state that she feels sick . She was assessed in ER initially for possibility of TIA, was not found to have any focal abnormalities. CT of the head unchanged from prior with previously noted long-term stable abnormal calcification of bone in the left foramen magnum and occiput with encroachment upon cervical medullary junction. Increased density in the cerebellum consistent with calcification also previously noted. UA unremarkable at this time without any suggestion of UTI. Blood pressure with some fluctuation, 102/50-122/48. Heart rate with some fluctuation, lowest down in the high 40s with pacemaker taking over. Review of Systems 2 Const: Reports: fatigue and malaise; Denies: fever(s) or body aches ENMT: Reports: other (Transient loss of vision); Denies: throat pain Card: Denies: chest pain, edema, pre-syncope or dyspnea on exertion Resp: Denies: dyspnea, productive cough, change in phlegm color or hemoptysis GI: Denies: abdominal pain, nausea, vomiting, diarrhea, constipation, hematochezia or melena : Denies: flank pain, urinary frequency or hematuria Musc: Denies: back pain, joint swelling or joint redness Skin/Breast: Denies: rash or new lesions Neuro: Reports: lack of coordination, difficulty walking and Slurred speech present; Denies: headache(s), numbness in extremities, weakness in extremities, dizziness or seizure-like activity Medications/Allergies Home Medications Medication Instructions Recorded Confirmed Last Taken Type lancets 33 gauge (TRUEplus Lancets) #100 ea 12/23/20 08/25/23 01/13/23 Rx flash glucose scanning reader #1 ea 01/12/22 08/25/23 01/13/23 Rx (FreeStyle William 2 [place]) medical marijuana See Rx Instructions .Route .COMPLEX 04/06/22 08/25/23 01/16/23 History Power chair repair #1 ea 09/27/22 08/25/23 01/13/23 Rx albuterol sulfate 2.5 mg/3 mL 2.5 mg (3 mL) inhalation QID PRN 02/23/23 08/25/23 Unknown Rx (0.083 %) solution for nebulization shortness of breath or wheezing #360 mL pen needle, diabetic, safety 31 #300 ea 03/19/23 08/25/23 Unknown Rx gauge x 3/16 (DropSafe Pen Needle) insulin aspart U-100 100 unit/mL See Rx Instructions SUBCUT TID #15 05/18/23 08/25/23 08/09/23 Rx (3 mL) subcutaneous pen (Novolog mL FlexPen U-100 Insulin aspart) furosemide 20 mg tablet 20 mg PO BID PRN edema #180 tabs 05/27/23 08/25/23 Unknown Rx flash glucose sensor (FreeStyle #2 ea 07/17/23 08/25/23 Unknown Rx William 2 Sensor kit) aspirin 81 mg tablet,delayed 81 mg PO QAM 08/09/23 08/25/23 08/09/23 History release budesonide 160 mcg-glycopyr 9 2 inh inhalation BID PRN Shortness 08/09/23 08/25/23 Unknown History mcg-formot 4.8 mcg/actuation HFA Of Breath inhaler ([employer]rez[employer] ChupaMobilephere) lidocaine 5 % topical patch 1 patch topical [id number] #30 ea 08/11/23 08/25/23 Unknown Rx hydrocodone 5 mg-acetaminophen 325 1 tab PO Q4H PRN Moderate Pain #10 08/12/23 08/25/23 Unknown Rx mg tablet tabs duloxetine 20 mg capsule,delayed 20 mg PO BID #60 caps 08/15/23 08/25/23 Unknown Rx release (Cymbalta) diazepam 2 mg tablet (Valium) 2 mg PO TID PRN muscle spasm #90 08/16/23 08/25/23 Unknown Rx tabs albuterol sulfate 90 mcg/actuation 2 puff inhalation QID PRN 08/17/23 08/25/23 Unknown Rx aerosol inhaler (Proventil HFA) Shortness Of Breath #6.7 grams insulin glargine U-300 conc 300 See Rx Instructions .Route 08/17/23 08/25/23 Unknown Rx unit/mL (3 mL) subcutaneous pen .COMPLEX #12 mL (Toujeo Max U-300 SoloStar) levothyroxine 88 mcg tablet 88 mcg PO QAM #90 tabs 08/17/23 08/25/23 Unknown Rx simvastatin 20 mg tablet 20 mg PO BEDTIME #90 tabs 08/17/23 08/25/23 Unknown Rx cefdinir 300 mg capsule 300 mg PO BID 08/22/23 08/25/23 Unknown History celecoxib 200 mg capsule (Celebrex) 200 mg PO DAILY #60 caps 08/25/23 08/25/23 Unknown Rx cyclobenzaprine 10 mg tablet 10 mg PO TID #90 tabs 08/25/23 08/25/23 Unknown Rx Allergies Allergy/AdvReac Type Severity Reaction Status Date / Time Sulfa (Sulfonamide Allergy RASH Verified 09/04/23 16:30 Antibiotics) PNEUMONIA VACCINE Allergy ALGY-Rash Uncoded 08/25/23 13:34 PFSH Acute 2 PFSH: Medical History Atherosclerosis of [place] coronary artery without angina pectoris Chronic lymphocytic leukemia Urolithiasis Left ureteral calculus Myasthenia gravis UTI (urinary tract infection) Diabetes mellitus with hyperglycemia, with long-term current use of insulin Environmental and seasonal allergies Essential hypertension, benign Pneumonia Hyperlipidemia Vitamin D deficiency Vitamin B 12 deficiency COPD (chronic obstructive pulmonary disease) Depression with anxiety Hypothyroidism Neuropathy Surgical History History of basal cell carcinoma (BCC) excision History of hysterectomy with bilateral oophorectomy For cervical cancer History of appendectomy History of colonoscopy with polypectomy (11/17/21) Pacemaker 04/05/2019 H/O thyroidectomy Total thyroidectomy followed by radioactive iodine ablation for thyroid cancer H/O reduction of closed fracture left wrist 10/23/2015 Hx of cholecystectomy H/O brain surgery Craniotomy x 4 for meningioma H/O esophagogastroduodenoscopy (11/17/21) 2013 Family History Mother , AT 92 Anesthesia complication CAD (coronary artery disease) Cancer Dementia Stroke Brother CAD (coronary artery disease) Cancer Suicide Sister CAD (coronary artery disease) Suicide Grandmother Cancer Dementia Stroke Family/Other Cancer Dementia Stroke Brother Suicide Brother Suicide Father , IN HIS 60'S Alcoholic Liver disease Denies family history of Diabetes Clotting disorder Chronic kidney disease (CKD) Bleeding disorder Lung disease Social History Smoking and tobacco/nicotine status: former use of tobacco/nicotine Quit status (tobacco/nicotine): has quit using Year quit tobacco: 1997 Former quit date comment: 1 ppd X 45 years Second hand smoke exposure: No Alcohol intake: unknown Substance/Drug Use: unknown Adopted: No Caregiver/support person: Yes Lives independently: No Household members: family Housing: House Marital status: / Number of children: 2 service: No Current occupational status: retired Current occupational exposures/hazards: No Do you think of yourself as: Straight/Heterosexual Vitals/I&O/Wt Last Vital Signs Temp 97.8 F 09/04/23 16:31 Pulse 67 09/04/23 20:00 Resp 20 H 09/04/23 19:00 BP 122/48 09/04/23 20:00 Pulse Ox 95 09/04/23 20:00 O2 Del Method Room Air 09/04/23 20:00 Weight last 48 hrs Weight 70.307 kg Physical Exam 2 Narrative: Accompanied by her son. Const: COMMON NORMALS: patient oriented x3 and alert GENERAL APPEARANCE: c ooperative ORIENTATION/CONSCIOUSNESS: Yes awake OTHER: Hard of hearing but hears when spoken to closely. HENMT: COMMON NORMALS: oropharynx normal Neck/C-Spine: COMMON NORMALS: no JVD Resp: COMMON NORMALS: normal respiratory effort and clear to auscultation bilaterally AUSCULTATION: clear to auscultation bilaterally Cardio: COMMON NORMALS: no JVD, regular rhythm, S1 normal heart sound present, S2 normal heart sound present and No murmurs present (Cardio) RHYTHM: regular rhythm HEART SOUNDS: S1 normal heart sound present and S2 normal heart sound present GI: COMMON NORMALS: Normal to inspection, nondistended, normoactive bowel sounds present, Soft to palpation and non-tender PALPATION: Yes Soft to palpation Extremity: COMMON NORMALS: no joint enlargement and no pedal edema Neuro: COMMON NORMALS: patient oriented x3 and moves all extremities S ENSORIUM/ORIENTATION: Yes alert Skin: COMMON NORMALS: no rashes or lesions noted GENERAL SKIN EXAM: no rashes or lesions noted Data 09/04/23 17:15 09/04/23 17:15 A&P Assessment and plan (1) Generalized weakness: History mostly obtained from her son. She does contribute somewhat. Has been having episodes of weakness, possibly presyncope, with reported associated slurred speech, as well as loss of vision to the point that she may drive into objects with her motorized scooter. At 1 point was so weak that he could not hold up her head. She herself feels that she has been sick . Recently hospitalized for urinary tract infection, but no signs of infection at this time. CT of the head unremarkable. Concern for possibility of TIA, although in ER and currently did not show focal abnormality. Noted recent CTA head and neck in July with left vertebral artery stenosis, otherwise milder stenosis in the neck vessels. Will not repeat carotid duplex at this time. Continue aspirin, hold statin for now, check CK. Noted abnormality on EKG some suggestion of ST elevation by machine read, does have paced rhythm as well. Discussed with drop man. Will trend troponin series. With generalized weakness, episodes of possible presyncope will additionally assess with orthostatic vitals, assess TTE. She does get quite easily fatigable with exertion. Monitor oxygen. May benefit from home O2 study prior to discharge with COPD. With malaise we will check respiratory viral panel given also underlying CLL. Reviewed hematology note, there was some concern regarding enlargement of lymph nodes recently, will do overall does not appear that she has progression of CLL. Expectant management is continued with follow-up. 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 It is not clear that myasthenia is contributing to these episodes particularly with blackout of vision although overall could contribute to her feeling drained . Will monitor blood pressures and heart rhythm overnight. Will additionally request for interrogation of the pacemaker. Additionally she is on a statin, will check CK, consider holding statin for some time at discharge to see if she is not developing myopathy. With fatigue, transient vision loss, will additionally check CRP, ESR. TSH reviewed, noted normal. Check morning cortisol. Check vitamin D, last time was low and she is not currently on supplementation. Mg. Reviewed vitals, CBC, CMP, TSH, UA, EKG, head CT, chest x-ray, ER note, discussed with ER provider. In case of any episodes in the hospital check vitals, blood glucose. They deny any recent medication changes, her son did try to hold her diazepam and cyclobenzaprine with sepsis to see if it may be related but that did not seem to make a difference. Plan Transient vision loss: Unclear etiology. Does not give clear symptoms of GCA/PMR, will check ESR, CRP. Check orthostatic vitals. CAD: Complete troponin EKG series, assess TTE. Pacemaker interrogation. Hold statin for now. Check CK. History of syncope, sinus arrest, status post PPM: Pacemaker interrogation COPD: Not in exacerbation, monitor oxygenation, may benefit from discharge. Recent hospitalization for urinary tract infection: UA currently not suggestive of UTI. Neck pain, intermittent neck spasms, history of cervical fusion: There was recommendation for MRI by orthopedics although she could not have it here due to pacemaker. They are in process of following up regarding this, she would have to go likely to [place]. Recent right ankle fracture, and was set up with ASO with recommendation for weightbearing as tolerating with an orthosis. DM2: Accu-Cheks, continue insulin. In case of any episodes check blood glucose. Myasthenia gravis: She takes diazepam, cyclobenzaprine for intermittent muscle spasms. 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 From reviewing hematology note it is okay for her to have eculizumab. Consider contacting neurology tomorrow for additional recommendations. Check vitamin D. Hypothyroidism: Reviewed TSH, is okay. Continue levothyroxine. Other medical problems. Requested to confirm home medications, please review and reconcile once available. Attestations 2 Medical Necessity Statement*: Place in observation for additional assessment of generalized weakness, episodic worsening of weakness with associated symptoms and lady with underlying CLL, myasthenia gravis, CAD, diabetes, additional comorbidities as above. and High MDM includes amount and/or complexity of data reviewed/ordered [ previous or external records, resulted lab(s)/test(s), ordered lab(s)/test(s), independent historian and other healthcare professional discussion] as documented Diagnoses Generalized weakness R53.1
--- NOTE | 2023-09-04 21:39 | PC.NURSE ---
Dr. Jane notified that patient is asking for her PRN Hydrocodone and Flexeril that she takes at home for shoulder pain. Also notified that I could not verify all of her home medications because the patient and son do not have a list of home medications and cannot tell me the names and doses of all of them, but the son states what is in the chart should be the same and there has not been any changes to her home medications.
--- NOTE | 2023-09-04 22:15 | PC.NURSE ---
Son is no longer at bedside. Patient was able to verify home medications with me. Med rec updated. Dr. Jane notified.
[2023-09-04] MEDS: HYDROcodone-acetaminophen 5-325 mg Tablet 1 TAB PO (22:41)
[2023-09-04] MEDS: cyclobenzaprine 10 mg Tablet PO (22:41)
[2023-09-04 22:56] LABS: Adenovirus Not Detected (NOT DETECT); Chlamydia Pneumoniae Not Detected (NOT DETECT); Coronavirus 229E,HKU1,NL63,OC4 Not Detected (NOT DETECT); Human Metapneumovirus Not Detected (NOT DETECT); Human Rhinovirus/Enterovirus Not Detected (NOT DETECT); Influenza A Not Detected (NOT DETECT); Influenza A H1 Not Detected (NOT DETECT); Influenza A H1-2009 Not Detected (NOT DETECT); Influenza A H3 Not Detected (NOT DETECT); Influenza B Not Detected (NOT DETECT); Mycoplasma Pneumoniae Not Detected (NOT DETECT); Parainfluenza Virus Type 1 Not Detected (NOT DETECT); Parainfluenza Virus Type 2 Not Detected (NOT DETECT); Parainfluenza Virus Type 3 Not Detected (NOT DETECT); Parainfluenza Virus Type 4 Not Detected (NOT DETECT); Respiratory Syncytial Virus A Not Detected (NOT DETECT); Respiratory Syncytial Virus B Not Detected (NOT DETECT); SARS-COV-2 Not Detected (NOT DETECT)
[2023-09-04 23:33] LABS: Creatine Phosphokinase 37 U/L (26-192)
[2023-09-05 00:21] LABS: 25 Hydroxy Vitamin D 51 ng/mL (30-100)
[2023-09-05 01:13] LABS: Basophils # 0.1 10^3/uL (0.0-0.1); Basophils % 0.3 %; Eosinophils # 0.3 10^3/uL (0.0-0.8); Eosinophils % 0.7 %; Hematocrit 35.9 % (36-47); Lymphocytes # 36.9 10^3/uL (0.8-4.8); Lymphocytes % 83.7 %; Mean Corpuscular Hemoglobin 29.5 pg (27-33); Mean Corpuscular Volume 92.1 fl (85-98); Mean Platelet Volume 9.1 fL (7.4-10.4); Monocytes # 3.6 10^3/uL (0.2-0.9); Monocytes % 8.1 %; Neutrophils # 3.09 10^3/uL (1.8-7.7); Neutrophils % 7.1 %; Nucleated Red Blood Cells % 0 %; Platelet Count 130 10^3/cmm (157-399); Red Cell Distribution Width 13.7 % (12.1-15.1)
[2023-09-05 01:19] LABS: Erythrocyte Sedimentation Rate 1 mm/hr (0-15)
[2023-09-05 01:29] LABS: Alanine Aminotransferase 10 U/L (0-33); Albumin Level 3.5 g/dL (3.5-5.2); Alkaline Phosphatase 71 U/L (35-105); Anion Gap 13.6 (5-19); Aspartate Amino Transferase 17 U/L (0-32); Blood Urea Nitrogen 12 mg/dL (8-23); Calcium 8.5 mg/dL (8.5-10.5); Carbon Dioxide 27 mmol/L (22-29); Chloride 109 mmol/L (98-107); Creatinine Clr Calc Pharmacy 52.5865; Globulin 1.9 g/dL (1.3-4.6); Glucose 110 mg/dL (65-115); Magnesium 2.3 mg/dL (1.7-2.3); Osmolality Calculated 302 mOsm/kg (285-295); Potassium 3.6 mmol/L (3.5-5.1); Sodium 146 mmol/L (136-145); Total Bilirubin 0.4 mg/dL (0.15-1.2); Total Protein 5.4 g/dL (6.6-8.7)
[2023-09-05 01:32] LABS: Troponin 5 6HR 14.73 ng/L (0-10); Troponin 5 6HR Delta 4.73 ng/L (0-12)
[2023-09-05 01:40] LABS: Cortisol Random 3.03 ug/dL (2.47-19.5)
[2023-09-05 04:00] VITALS: BP 98/60; PULSE 70; RESP 17; TEMP 36.4; O2SAT 93
[2023-09-05] MEDS: levothyroxine 88 mcg Tablet PO (05:03)
[2023-09-05 06:00] VITALS: BMI 27.1
[2023-09-05 07:20] LABS: Glucose Point of Care 92 mg/dL (70-110)
[2023-09-05 07:27] VITALS: BP 84/44; PULSE 41; RESP 16; TEMP 36.7; O2SAT 94
[2023-09-05 07:50] VITALS: PULSE 42; RESP 15; O2SAT 94
--- NOTE | 2023-09-05 07:52 | PC.NURSE ---
Patient blood pressure this morning was 88/44 at 0724. This nurse was at bedside and put patient in trendelenburg. was notified. Rechecked blood pressure at 0750 and was 104/65. Patient has no complaints of dizziness, alert and oriented x4. Call light within reach, bed in lowest position.
[2023-09-05] MEDS: aspirin 81 mg EC Tablet PO (08:21)
--- NOTE | 2023-09-05 09:03 | PC.PHAR ---
pts son becki yee [phone] verified pts medications-states he sets her meds up-becki states he dced the pts cymbalta 20mg bid filled 08/15/23 30d/s-pts son states the pt takes lasix 20mg qam rx filled for 20mg bid prn-notes are made in the pharmacy comments
--- NOTE | 2023-09-05 09:25 | PC.CHAP ---
Pastoral Care Encounter/Spiritual Assessment Type of Contact [] Declined business process manager visit [] Patient/Family/Request visit [] Outpatient visit [] Follow-up visit [] Physician referral [] Code/Alert [x] Routine visit [] Staff referral [] Actively dying [] Patient sleeping [] Family support [] [] Out of room [] Palliative care [] [] Receiving care in room [] Pre-surgical visit [] Trauma [] Long length of stay [] ICU visit [] Other: Relational/Emotional Strength [x] Patient feels connected with others/family/visitors/staff [] Distress [] Loneliness/isolation [] Abandonment Spirituality of Patient [x] Person of Deja [] Attends Sikhism of their Deja [x] Believes in Prayer [] Reads Bible or Taoism materials [] There are Spiritual issues to be addressed Monkey Keeper Interventions [x] Prayer [x] Active listening [x] Non-anxious presence [x] Spiritual/emotional support [] Crisis/trauma care [] Spiritual counseling [] Bereavement support [] Provided bereavement packet [] Provided Bible/devotional materials [] Provided toy/stuffed animal, coloring book to patient or family member [] Provided Communion [] Anointing/Spray [] Salvation [x] Completed spiritual assessment [] Other: Impact on Illness or Injury [] Angry [] Fearful [] Anxious [] Often cries [] Exhaustion [] Unable to work [] Unable to attend mormonism [] Unable to walk/stand [] Unable to read [] Unable to drive [] Unable to eat/drink [] Unable to sleep [] Unable to be with family [] Patient intubated [] Other: Summary Time spent with patient 5 min
--- NOTE | 2023-09-05 11:02 | PM.DCS ---
Discharge Providers Date of Admission: 09/04/23 20:16 Date of Discharge: September 05, 2023 Attending Provider at Admission: Bandar Jane Attending Provider at Discharge: Gary Connors MD Primary Care Provider: MARLO Sharma Diagnoses at Discharge Discharge Diagnosis (1) Generalized weakness: Status: Acute Reason for Visit Reason for Visit: weakness, confusion Hospital Course Hospital Course 83-year female with history of CLL, myasthenia gravis, follows up with Dr. Rendon, Dr. Katie Benedict, her insurance has not approved [employer] which was being considered by neurology for myasthenia, patient is experiencing episodic symptoms of tremors, muscle cramping, no acute flare until so far since her diagnosis of myasthenia, patient is leading a sedentary lifestyle, uses motorized wheelchair, presented to the hospital for weakness. She remained hemodynamically stable white count 44,000, no signs of UTI, discussed this case with Dr. Katie Dodge who recommended IVIG outpatient, he has not recommended use of pyridostigmine at this point, respiratory panel negative, UA negative. Vitamin D is normal. Random cortisol level is normal as well, head CT unremarkable her symptoms could be related to TIA considering atherosclerotic disease and vascular calcification evident on CTA head and neck. Patient has a pacemaker related to asystole in the past.She is not interested in going to a half-way, patient is stating that she has enough help at home there is always someone at home who is awake within 24 hours to help her out Physical Exam Narrative: No signs of myasthenia gravis flare GCS 15 Hemodynamic stable Paced rhythm Awake and alert Mild signs of dehydration Pleasant cooperative Discharge Data Studies Completed and Pending Completed Studies During Hospitalization Category Date Time Status CT head wo con* [id number] Stat Cat Scan 09/04/23 17:12 Completed XR chest 1V portable [id number] Stat Exams 09/04/23 17:06 Completed Pending at discharge Category Date Time Status Complete Blood Count w/Auto AM LABS Lab 09/06/23 04:00 Ordered Complete Blood Count w/Auto AM LABS Lab 09/07/23 04:00 Ordered Comprehensive Metabolic Panel AM LABS Lab 09/06/23 04:00 Ordered Comprehensive Metabolic Panel AM LABS Lab 09/07/23 04:00 Ordered Laboratory Results WBC 44.10 10^3/uL (3.29-11.43) H* 09/05/23 01:05 RBC 3.90 10^6/uL (3.85-5.65) 09/05/23 01:05 Hgb 11.50 g/dL (11.27-16.99) 09/05/23 01:05 Hct 35.9 % (36-47) L 09/05/23 01:05 MCV 92.1 fl (85-98) 09/05/23 01:05 MCH 29.5 pg (27-33) 09/05/23 01:05 MCHC 32.0 g/dL (30-55) 09/05/23 01:05 RDW 13.7 % (12.1-15.1) 09/05/23 01:05 Plt Count 130 10^3/cmm (157-399) L 09/05/23 01:05 MPV 9.1 fL (7.4-10.4) 09/05/23 01:05 Neut % (Auto) 7.1 % 09/05/23 01:05 Lymph % (Auto) 83.7 % 09/05/23 01:05 Sebastian % (Auto) 8.1 % 09/05/23 01:05 Eos % (Auto) 0.7 % 09/05/23 01:05 Baso % (Auto) 0.3 % 09/05/23 01:05 Neut # (Auto) 3.09 10^3/uL (1.8-7.7) 09/05/23 01:05 Lymph # (Auto) 36.9 10^3/uL (0.8-4.8) H 09/05/23 01:05 Sebastian # (Auto) 3.6 10^3/uL (0.2-0.9) H 09/05/23 01:05 Eos # (Auto) 0.3 10^3/uL (0.0-0.8) 09/05/23 01:05 Baso # (Auto) 0.1 10^3/uL (0.0-0.1) 09/05/23 01:05 Nucleated RBC % (auto) 0 % 09/05/23 01:05 Nucleated RBCs # 0.0 /100WBC 09/05/23 01:05 ESR 1 mm/hr (0-15) 09/05/23 01:05 Sodium 146 mmol/L (136-145) H 09/05/23 01:05 Potassium 3.6 mmol/L (3.5-5.1) 09/05/23 01:05 Chloride 109 mmol/L (98-107) H 09/05/23 01:05 Carbon Dioxide 27 mmol/L (22-29) 09/05/23 01:05 Anion Gap 13.6 (5-19) 09/05/23 01:05 BUN 12 mg/dL (8-23) 09/05/23 01:05 Creatinine 0.8 mg/dL (0.5-0.9) 09/05/23 01:05 GFR Calculation Not Reportable 09/05/23 01:05 Glucose 110 mg/dL (65-115) 09/05/23 01:05 POC Glucose 92 mg/dL (70-110) 09/05/23 06:16 Calculated Osmolality 302 mOsm/kg (285-295) H 09/05/23 01:05 Calcium 8.5 mg/dL (8.5-10.5) 09/05/23 01:05 Magnesium 2.3 mg/dL (1.7-2.3) 09/05/23 01:05 Total Bilirubin 0.4 mg/dL (0.15-1.2) 09/05/23 01:05 AST 17 U/L (0-32) 09/05/23 01:05 ALT 10 U/L (0-33) 09/05/23 01:05 Alkaline Phosphatase 71 U/L (35-105) 09/05/23 01:05 Creatine Kinase 37 U/L (26-192) 09/04/23 17:15 Troponin T Baseline 10 ng/L (0-10) 09/04/23 17:15 Troponin T 120 Minute 8.00 ng/L (0-10) 09/04/23 20:48 Delta Troponin T -2.00 ABS# (0-10) L 09/04/23 20:48 Troponin T Hi Sens 6Hr 14.73 ng/L (0-10) H 09/05/23 01:05 Troponin T Hi Sens 6Hr Delta 4.73 ng/L (0-12) 09/05/23 01:05 C-Reactive Protein 3.0 mg/L (0.0-4.9) 09/05/23 01:05 Total Protein 5.4 g/dL (6.6-8.7) L 09/05/23 01:05 Albumin 3.5 g/dL (3.5-5.2) 09/05/23 01:05 Globulin 1.9 g/dL (1.3-4.6) 09/05/23 01:05 25-OH Vitamin D Total 51 ng/mL (30-100) 09/04/23 17:15 TSH 1.81 uIU/mL (0.27-4.20) 09/04/23 17:15 Random Cortisol 3.03 ug/dL (2.47-19.5) 09/05/23 01:05 Urine Color Yellow (Yellow) 09/04/23 17:54 Urine Appearance Clear (CLEAR) 09/04/23 17:54 Urine pH 5 (5-7) 09/04/23 17:54 Ur Specific [place] 1.010 (1.005-1.030) 09/04/23 17:54 Urine Protein Neg (Negative) 09/04/23 17:54 Urine Glucose (UA) Norm (Normal) 09/04/23 17:54 Urine Ketones Negative (Negative) 09/04/23 17:54 Urine Blood Neg (Negative) 09/04/23 17:54 Urine Nitrate Negative (Negative) 09/04/23 17:54 Urine Bilirubin Neg (Negative) 09/04/23 17:54 Urine Urobilinogen Norm mg/dL (Negative) 09/04/23 17:54 Ur Leukocyte Esterase Negative (Negative) 09/04/23 17:54 Adenovirus (PCR) Not detected (NOT DETECT) 09/04/23 21:00 C. pneumoniae DNA (PCR) Not detected (NOT DETECT) 09/04/23 21:00 Coronavirus 229E (PCR) Not detected (NOT DETECT) 09/04/23 21:00 Human Metapneumovir PCR Not detected (NOT DETECT) 09/04/23 21:00 Influenza A (H1) PCR Not detected (NOT DETECT) 09/04/23 21:00 Influ A (H1/09) PCR Not detected (NOT DETECT) 09/04/23 21:00 Influenza A (H3) PCR Not detected (NOT DETECT) 09/04/23 21:00 Influenza Type A (PCR) Not detected (NOT DETECT) 09/04/23 21:00 Influenza Type B (PCR) Not detected (NOT DETECT) 09/04/23 21:00 M. pneumoniae (PCR) Not detected (NOT DETECT) 09/04/23 21:00 Parainfluenza 1 (PCR) Not detected (NOT DETECT) 09/04/23 21:00 Parainfluenza 2 (PCR) Not detected (NOT DETECT) 09/04/23 21:00 Parainfluenza 3 (PCR) Not detected (NOT DETECT) 09/04/23 21:00 Parainfluenza 4 (PCR) Not detected (NOT DETECT) 09/04/23 21:00 RSV Type A (PCR) Not detected (NOT DETECT) 09/04/23 21:00 RSV Type B (PCR) Not detected (NOT DETECT) 09/04/23 21:00 Entero/Rhino (PCR) Not detected (NOT DETECT) 09/04/23 21:00 SARS-CoV-2 (PCR) Not detected (NOT DETECT) 09/04/23 21:00 Vitals Last Vital Signs Temp 98.0 F 09/05/23 07:27 Pulse 42 L 09/05/23 07:50 Resp 15 09/05/23 07:50 BP 84/44 09/05/23 07:27 Pulse Ox 94 09/05/23 07:50 O2 Del Method Room Air 09/05/23 07:50 Discharge Plan Discharge Patient Disposition: Xfer SNF Condition: Stable Prescriptions: Continued (DME) lancets [TRUEplus Lancets] 33 gauge misc See Rx Instructions .Route Qty: 100 5RF Rx Instructions: use one 3 times day (DME) FreeStyle William 2 [place] Misc See Rx Instructions .ROUTE .MEDSUPPLY Qty: 1 0RF Rx Instructions: As directed albuterol sulfate 2.5 mg /3 mL (0.083 %) solution for nebulization 2.5 mg inhalation QID PRN (Reason: shortness of breath or wheezing) Qty: 360 3RF albuterol sulfate [Proventil HFA] 90 mcg/actuation HFA aerosol inhaler 2 puff INHALATION QID PRN (Reason: Shortness Of Breath) Qty: 6.7 1RF levothyroxine 88 mcg tablet 88 mcg PO QAM Qty: 90 1RF simvastatin 20 mg tablet 20 mg PO BEDTIME Qty: 90 1RF diazepam [Valium] 2 mg tablet 2 mg PO TID PRN (Reason: muscle spasm) Qty: 90 5RF (DME) Power chair repair See Rx Instructions .Route .MEDSUPPLY Qty: 1 0RF Rx Instructions: Repair power chair and maintenance (DME) pen needle, diabetic, safety [DropSafe Pen Needle] 31 gauge x 3/16 needle See Rx Instructions .Route Qty: 300 2RF Rx Instructions: use 4 day insulin aspart U-100 [Novolog FlexPen U-100 Insulin] 100 unit/mL (3 mL) insulin pen See Rx Instructions SUBCUT TID Qty: 15 2RF Rx Instructions: sliding scale bid (DME) FreeStyle William 2 Sensor Kit See Rx Instructions .ROUTE .MEDSUPPLY Qty: 2 11RF Rx Instructions: change every 14 days aspirin 81 mg tablet,delayed release (DR/EC) 81 mg PO QAM Breztri Aerosphere 160-9-4.8 mcg/actuation HFA aerosol inhaler 2 inh inhalation BID PRN (Reason: Shortness Of Breath) lidocaine 5 % Adhesive Patch,Medicated 1 patch topical [id number] Qty: 30 0RF insulin glargine U-300 conc [Toujeo Max U-300 SoloStar] 300 unit/mL (3 mL) insulin pen See Rx Instructions .ROUTE .COMPLEX Patient Comments: patient states she takes 44 units daily for the most part, but sometimes her dose has to be adjusted based on her sugars. Rx Instructions: sliding scale anywhere from 40 to 48 units subcutaneously every morning depending on blood sugar reading cyclobenzaprine 10 mg tablet 10 mg PO BID Cranberry Plus Vitamin C 140-100 mg Capsule 1 cap PO QAM tolterodine 2 mg Tablet 2 mg PO QAM [place] 500 mg Capsule 500 mg PO BEDTIME PRN (Reason: Constipation) omeprazole 20 mg Capsule,Delayed Release(Dr/Ec) 20 mg PO BID Vitamin D3 125 mcg (5,000 unit) Tablet 5,000 unit PO QAM Thc Capsule 20mg 1 cap PO QPM furosemide 20 mg tablet 20 mg PO QAM Discontinued ibuprofen 200 mg Tablet 400 mg PO Q6H PRN (Reason: Pain) Celebrex 200 mg capsule 200 mg PO BID Discharge Orders: Discharge Order (Routine); Ordered 09/05/23 Ordered By: Gary Connors Referrals: Adam Anguiano, [employer] TECHNICIAN-C [Primary Care Provider] - (We have notified your physician's clinic of the need for a follow-up appointment to be scheduled. If you have not heard from them within the next 2 business days, please call them directly. ) Surya Wilson MD [Physician] - 1-3 days Discharge Diet: Cardiac Patient Instructions: Opioid Safety Activity Restrictions/Additional Instructions: Dr. Katie London has recommended IVIG outpatient, please see him so you can start your treatment for myasthenia, [facility] has not been approved by your insurance Discharge Attestations Time Spent in Discharge Care*: greater than 30 min Quality Metrics Clinical Quality Measures [ No reported AMI, CVA or VTE this stay] Coding Level of Care Code Acute Code for Chg Fwd Diagnoses Generalized weakness R53.1
[2023-09-05 11:30] LABS: Glucose Point of Care 90 mg/dL (70-110)
[2023-09-05] MEDS: acetaminophen 325 mg Tablet 650 MG PO (12:16)
[2023-09-14 04:59] LABS: GAD 65 IA-2 Antibody <5.4 U/mL (<5.4); GAD Insulin Autoantibody <0.4 U/mL (<0.4); Glutamic Acid Decarboxylase 65 <5 IU/mL (<5)
== END 2023-09-05 12:26 | disposition home health service (06) ==
LOC: ER 19:35 → MEDSURG 20:16
PROVIDERS: Admitting Provider Internal Medicine; Emergency Provider Emergency Medicine; PCP Nurse Practitioner; Visit Provider Internal Medicine
DX: R53.1 Weakness (principal); R47.81 Slurred speech; H53.9 Unspecified visual disturbance; Z85.6 Personal history of leukemia; Z95.0 Presence of cardiac pacemaker; Z91.81 History of falling; Z98.1 Arthrodesis status; G70.00 Myasthenia gravis without (acute) exacerbation; Z72.3 Lack of physical exercise; Z87.440 Personal history of urinary (tract) infections; Z79.82 Long term (current) use of aspirin; E11.65 Type 2 diabetes mellitus with hyperglycemia; Z79.4 Long term (current) use of insulin; I10 Essential (primary) hypertension; E78.5 Hyperlipidemia, unspecified; J44.9 Chronic obstructive pulmonary disease, unspecified; E03.9 Hypothyroidism, unspecified; E11.40 Type 2 diabetes mellitus with diabetic neuropathy, unspecified; Z87.891 Personal history of nicotine dependence
CPT/HCPCS: 36415; 36416; 70450; 71045; 80053; 81003; 82306; 82533; 82550; 82962; 83735; 84443; 84484; 85025; 85651; 86140; 86337; 86341; 87486; 87581; 87633; 93005; 99285; G0378

== ENCOUNTER 2023-09-07 10:00 | Oncology outpatient (recurring) (ONCR) | payer MEDICARE, OTHER, SELFPAY ==
[2023-08-22 13:41] LABS: Basophils # 0.2 10^3/uL (0.0-0.1); Basophils % 0.4 %; Eosinophils # 0.2 10^3/uL (0.0-0.8); Eosinophils % 0.4 %; Hematocrit 42.9 % (36-47); Lymphocytes # 48.3 10^3/uL (0.8-4.8); Lymphocytes % 84.6 %; Mean Corpuscular HGB Conc 31.9 g/dL (30-55); Mean Corpuscular Hemoglobin 29.6 pg (27-33); Mean Corpuscular Volume 92.7 fl (85-98); Mean Platelet Volume 8.7 fL (7.4-10.4); Monocytes # 3.9 10^3/uL (0.2-0.9); Monocytes % 6.8 %; Neutrophils # 4.35 10^3/uL (1.8-7.7); Neutrophils % 7.6 %; Nucleated Red Blood Cells % 0 %; Platelet Count 162 10^3/cmm (157-399); Red Blood Count 4.63 10^6/uL (3.85-5.65); Red Cell Distribution Width 13.7 % (12.1-15.1)
[2023-08-22 13:58] LABS: Alanine Aminotransferase 13 U/L (0-33); Albumin Level 4.4 g/dL (3.5-5.2); Alkaline Phosphatase 79 U/L (35-105); Anion Gap 13.1 (5-19); Aspartate Amino Transferase 22 U/L (0-32); Blood Urea Nitrogen 16 mg/dL (8-23); Calcium 8.8 mg/dL (8.5-10.5); Carbon Dioxide 28 mmol/L (22-29); Chloride 102 mmol/L (98-107); Globulin 2.5 g/dL (1.3-4.6); Glucose 109 mg/dL (65-115); Lactate Dehydrogenase 297 U/L (135-214); Osmolality Calculated 290 mOsm/kg (285-295); Potassium 4.1 mmol/L (3.5-5.1); Sodium 139 mmol/L (136-145); Total Bilirubin 0.5 mg/dL (0.15-1.2); Total Protein 6.9 g/dL (6.6-8.7)
[2023-08-22 14:09] LABS: Slide Review Slide Review Perform
[2023-08-22 15:19] LABS: Immunoglobulin IGA 106 mg/dL (70-400); Immunoglobulin IGG 644 mg/dL (700-1600); Immunoglobulin IGM 35 mg/dL (40-230)
[2023-08-22 15:25] LABS: Add Urine Microscopic? NO; Charge for UA Resulting for Rev
[2023-08-22 15:38] LABS: Bilirubin Urine Neg (Negative); Blood Urine Neg (Negative); Glucose Urine UA Norm (Normal); Ketones Urine Negative (Negative); Leukocyte Esterase Urine Negative (Negative); Nitrate Urine Negative (Negative); Protein Urine Neg (Negative); Specific Gravity, Urine 1.015 (1.005-1.030); Urine Appearance Clear (CLEAR); Urine Color Light yellow (Yellow); Urobilinogen Urine Norm (Negative); pH Urine 5 (5-7)
[2023-08-28 12:13] LABS: Add Urine Culture? No; Bacteria Urine TRACE /hpf; Bilirubin Urine Neg (Negative); Blood Urine Neg (Negative); Glucose Urine UA Norm (Normal); Ketones Urine Negative (Negative); Leukocyte Esterase Urine Trace (Negative); Nitrate Urine Negative (Negative); Protein Urine Neg (Negative); RBC Urine 0-4 /hpf (0-2); Squamous Epithelial Cell Urine 0-4 /hpf (0-5); Urine Appearance SL Hazy (CLEAR); Urine Color Yellow (Yellow); Urobilinogen Urine Norm (Negative); WBC Urine 0-4 /hpf (0-5); pH Urine 5 (5-7)
[2023-09-07 10:31] VITALS: BP 121/63; PULSE 60; RESP 16; TEMP 36.8; O2SAT 97
[2023-09-07 10:51] VITALS: BP 121/63; PULSE 60; RESP 16; TEMP 36.8; O2SAT 97
== END 2023-09-07 23:59 | disposition home or self-care (01) ==
PROVIDERS: PCP Nurse Practitioner; Visit Provider Internal Medicine Medical Oncology
DX: G70.00 Myasthenia gravis without (acute) exacerbation (principal)
CPT/HCPCS: 36415; 80053; 81001; 81003; 82784; 83615; 85025; 99214

== ENCOUNTER 2023-09-12 09:00 | Oncology outpatient (recurring) (ONCR) | payer MEDICARE, OTHER, SELFPAY ==
[2023-09-11] VITALS (10 sets, daily range): BP systolic 109–138; BP diastolic 52–80; PULSE 54–96; RESP 16; TEMP 36.2–37.2; O2SAT 91–96
[2023-09-11] MEDS: immune globulin (Privigen ONC) 20 GM, immune globulin (Privigen-ONC) 10 GM in empty fle... 21.6000000000000014 GM IV (11:13)
[2023-09-12] VITALS (8 sets, daily range): BP systolic 94–120; BP diastolic 54–68; PULSE 60–68; RESP 16; TEMP 36.5–36.7; O2SAT 94–99
[2023-09-12] MEDS: immune globulin (Privigen ONC) 20 GM, immune globulin (Privigen-ONC) 10 GM in empty fle... IV (09:15)
== END 2023-09-12 23:59 | disposition home or self-care (01) ==
PROVIDERS: PCP Nurse Practitioner; Visit Provider Internal Medicine Medical Oncology
DX: G70.00 Myasthenia gravis without (acute) exacerbation (principal); Z53.9 Procedure and treatment not carried out, unspecified reason
CPT/HCPCS: 96365; 96366; J1459

== ENCOUNTER 2023-09-14 12:30 | Oncology outpatient (recurring) (ONCR) | payer MEDICARE, OTHER, SELFPAY ==
[2023-09-13] VITALS (7 sets, daily range): BP systolic 116–135; BP diastolic 54–79; PULSE 56–76; RESP 16–18; TEMP 35.9–36.6; O2SAT 95–99
[2023-09-13] MEDS: immune globulin (Privigen ONC) 20 GM, immune globulin (Privigen-ONC) 10 GM in empty fle... IV (09:32)
[2023-09-14] VITALS (7 sets, daily range): BP systolic 115–134; BP diastolic 60–72; PULSE 60–64; RESP 16–18; TEMP 36.2–36.8; O2SAT 95–98
[2023-09-14] MEDS: immune globulin (Privigen ONC) 20 GM, immune globulin (Privigen-ONC) 10 GM in empty fle... 19.8000000000000007 GM IV (12:48)
== END 2023-09-14 23:59 | disposition home or self-care (01) ==
PROVIDERS: PCP Nurse Practitioner; Visit Provider Internal Medicine Medical Oncology
DX: G70.00 Myasthenia gravis without (acute) exacerbation; Z53.9 Procedure and treatment not carried out, unspecified reason
CPT/HCPCS: 96365; 96366; 99214; J1459

== ENCOUNTER 2023-09-15 07:31 | Oncology outpatient (recurring) (ONCR) | payer MEDICARE, OTHER, SELFPAY ==
[2023-09-15] VITALS (8 sets, daily range): BP systolic 125–150; BP diastolic 63–77; PULSE 60–67; RESP 16; TEMP 36.2–36.6; O2SAT 91–96
[2023-09-15] MEDS: immune globulin (Privigen ONC) 20 GM, immune globulin (Privigen-ONC) 10 GM in empty fle... 19.8000000000000007 GM IV (08:30)
== END 2023-10-08 23:59 | disposition home or self-care (01) ==
PROVIDERS: PCP Nurse Practitioner; Visit Provider Internal Medicine Medical Oncology
DX: G70.00 Myasthenia gravis without (acute) exacerbation; Z53.9 Procedure and treatment not carried out, unspecified reason
CPT/HCPCS: 96365; 96366; J1459

== ENCOUNTER → 2023-09-18 09:03 | Outpatient (BNVA) | payer MEDICARE, OTHER, SELFPAY | PROVIDERS: PCP Nurse Practitioner; Visit Provider Podiatrist Foot & Ankle Surgery | DX: S82.831D Other fracture of upper and lower end of right fibula, subsequent encounter for closed fracture with routine healing (principal); E11.65 Type 2 diabetes mellitus with hyperglycemia; Z79.4 Long term (current) use of insulin; X58.XXXD Exposure to other specified factors, subsequent encounter | CPT/HCPCS: 99213 ==

== ENCOUNTER 2023-09-20 08:52 | Outpatient (CLI) | payer MEDICARE, OTHER, SELFPAY ==
--- NOTE | 2023-09-20 08:56 | CT_ITS ---
WS: [id number] CT CERVICAL MYELOGRAM TECHNIQUE: CT of the cervical spine coronal and sagittal reformatted images post intrathecal administ ration of contrast. CLINICAL INFORMATION: neck COMPARISON: CT 08/10/2023 DLP: 281.[address] scans at [facility] use at least one of these dose optimization techniques: automated e xposure control; mA and/or kV adjustment per patient size (includes targeted exams where dose is matc hed to clinical indication); or iterative reconstruction. FINDINGS: Prior postoperative changes C1-3 with wide decompressive laminectomies. Stable history of reported LE FT craniocervical fusion. Low lung cerebellar tonsils unchanged. Osteopenia. Straightening of the nor mal cervical lordosis with moderate spondylitic changes. Disc osteophyte complex worse at C6-7. Aberrant RIGHT subclavian artery. Emphysematous changes in the lung apices. Bilateral cervical lympha denopathy nonspecific but unchanged since 08/10/2023 and similar in appearance compared to 04/28/2023. This extends to the thoracic inlet. Bilateral carotid bulb calcification. Retropharyngeal course to t he RIGHT greater than LEFT cervical ICAs. Osteopenia. Mastoid air cells are well aerated. Partially v isualized paranasal sinuses are well aerated. C2-C3: No significant disc bulging. Spinal canal and foramen are patent. Mild facet arthropathy. C3-C4: No significant disc bulging. Moderate facet arthropathy. Mild LEFT and no significant RIGHT fo raminal narrowing. C4-C5: Mild disc osteophyte complex with endplate ridging. Moderate facet arthropathy. Mild LEFT and no significant RIGHT foraminal narrowing. Spinal canal is patent. C5-C6: Disc osteophyte complex with endplate ridging. Spinal canal is patent. Advanced facet arthropa thy. Mild RIGHT greater than LEFT bony foraminal narrowing with uncovertebral joint hypertrophy. C6-C7: Disc osteophyte complex with slight indentation of the cervical cord. Mild central canal steno sis. Mild bilateral bony foraminal narrowing RIGHT greater than LEFT with uncovertebral joint hypertr ophy. C7-T1: Disc osteophytic ridging. Spinal canal is patent. Mild bilateral bony foraminal narrowing. Mod erate facet arthropathy. IMPRESSION: 1. Straightening of the normal cervical lordosis with moderate spondylitic changes. 2. Osteopenia. 3. Disc osteophyte complex worse at C6-7 with mild central canal stenosis and slight contact of the cervical cord. 4. Mild bony foraminal narrowing LEFT C3-4, LEFT C4-5, RIGHT C5-6, bilateral C6-7, and bilateral C7- T1. 5. Advanced facet arthropathy C5-C6. 6. Bilateral cervical lymphadenopathy similar to the prior recent studies remains indeterminate. Thi s extends to the thoracic inlet and partially visualized anterior mediastinum. Previous chest CT 04/10 demonstrated bilateral bulky axillary lymphadenopathy. Consider further evaluation with ultrasoun d-guided biopsy and correlation with history of neoplasm or lymphoma. 7. Aberrant RIGHT subclavian artery. 8. Prior postoperative changes in the craniocervical junction with laminectomy C1-C3 with reported h istory of LEFT craniocervical effusion. Calcification or bone graft material extends along the forame n magnum and medulla unchanged from multiple prior examinations.
--- NOTE | 2023-09-20 09:00 | IR_ITS ---
WS: [id number] MYELOGRAM CERVICAL SPINE Fluoroscopic guided cervical myelogram CLINICAL INFORMATION: neck pain COMPARISON: None. TECHNIQUE: The procedure, including risks, benefits, and complications, were discussed with the patie nt who agreed to proceed. A timeout was performed to confirm correct patient, procedure, and site. Using sterile technique, the patient was prepped and draped in the usual sterile fashion. After admin istration of local anesthesia using 1% preservative-free lidocaine and using fluoroscopic guidance, a 22-gauge spinal needle was advanced into the subarachnoid space at the L2-3 level. Subsequently 13 c c of Omnipaque 240 was administered into the thecal sac. The needle was removed and hemostasis was ac hieved. Subsequently the table was tilted down and contrast flowed freely into the cervical spine. Sp ot fluoroscopic images were obtained. FLUOROSCOPIC TIME: 3min [id number] # of spot films: 3 Spot fluoroscopic images demonstrate osteopenia. Cardiac pacer. Thoracolumbar curve. Aortic calcifica tion. No high-grade central canal stenosis. Disc osteophyte complex worse at C6-7. Please see CT myelogram report for additional detail. IMPRESSION: Uncomplicated cervical myelogram. Please see CT myelogram report for additional detail.
== END 2023-09-20 08:53 | disposition home or self-care (01) ==
LOC: RAD 08:53
PROVIDERS: PCP Nurse Practitioner; Visit Provider Orthopaedic Surgery
DX: M47.22 Other spondylosis with radiculopathy, cervical region (principal); M85.88 Other specified disorders of bone density and structure, other site; M48.02 Spinal stenosis, cervical region; M25.78 Osteophyte, vertebrae; M47.812 Spondylosis without myelopathy or radiculopathy, cervical region; R59.0 Localized enlarged lymph nodes; Q27.8 Other specified congenital malformations of peripheral vascular system; Z98.890 Other specified postprocedural states
CPT/HCPCS: 62302; 72126; Q9966

== ENCOUNTER → 2023-09-22 10:16 | Outpatient (BNVA) | payer MEDICARE, OTHER, SELFPAY | PROVIDERS: PCP Nurse Practitioner; Visit Provider Internal Medicine Cardiovascular Disease | DX: Z53.9 Procedure and treatment not carried out, unspecified reason (principal) | CPT/HCPCS: 93279 ==

== ENCOUNTER → 2023-10-17 13:56 | Outpatient (BNVA) | payer MEDICARE, OTHER, SELFPAY | PROVIDERS: PCP Nurse Practitioner; Visit Provider Podiatrist Foot & Ankle Surgery | DX: E11.65 Type 2 diabetes mellitus with hyperglycemia (principal); Z79.4 Long term (current) use of insulin; L60.3 Nail dystrophy | CPT/HCPCS: 11721 ==

== ENCOUNTER 2023-10-18 13:44 | Oncology outpatient (recurring) (ONCR) | payer MEDICARE, OTHER, SELFPAY ==
[2023-10-18 14:21] LABS: Eosinophils # 0.1 10^3/uL (0.0-0.8); Eosinophils % 0.2 %; Hematocrit 42.4 % (36-47); Lymphocytes # 42.7 10^3/uL (0.8-4.8); Lymphocytes % 86.3 %; Mean Corpuscular Hemoglobin 29.3 pg (27-33); Mean Corpuscular Volume 97.9 fl (85-98); Mean Platelet Volume 9.2 fL (7.4-10.4); Monocytes # 1.9 10^3/uL (0.2-0.9); Monocytes % 3.8 %; Neutrophils # 4.68 10^3/uL (1.8-7.7); Neutrophils % 9.5 %; Nucleated Red Blood Cells % 0 %; Platelet Count 111 10^3/cmm (157-399); Red Blood Count 4.33 10^6/uL (3.85-5.65); Red Cell Distribution Width 14.5 % (12.1-15.1)
[2023-10-18 14:41] LABS: Alanine Aminotransferase 10 U/L (0-33); Albumin Level 3.7 g/dL (3.5-5.2); Alkaline Phosphatase 71 U/L (35-105); Aspartate Amino Transferase 27 U/L (0-32); Blood Urea Nitrogen 14 mg/dL (8-23); Calcium 8.7 mg/dL (8.5-10.5); Carbon Dioxide 26 mmol/L (22-29); Chloride 104 mmol/L (98-107); Glucose 102 mg/dL (65-115); Osmolality Calculated 291 mOsm/kg (285-295); Sodium 140 mmol/L (136-145); Total Bilirubin 0.3 mg/dL (0.15-1.2); Total Protein 6.7 g/dL (6.6-8.7)
[2023-10-18 14:50] LABS: Anion Gap 13.9 (5-19); Lactate Dehydrogenase 335 U/L (135-214); Potassium 3.9 mmol/L (3.5-5.1)
[2023-10-18 15:06] LABS: White Blood Count 49.44 10^3/uL (3.29-11.43)
[2023-10-18 15:08] LABS: Slide Review Slide Review Perform
== END 2023-11-07 23:59 | disposition home or self-care (01) ==
PROVIDERS: PCP Nurse Practitioner; Visit Provider Internal Medicine Medical Oncology
DX: G70.00 Myasthenia gravis without (acute) exacerbation (principal); C91.10 Chronic lymphocytic leukemia of B-cell type not having achieved remission; Z79.899 Other long term (current) drug therapy
CPT/HCPCS: 36415; 80053; 83615; 85025; 99214

== ENCOUNTER 2024-01-19 08:54 | Oncology outpatient (recurring) (ONCR) | payer MEDICARE, OTHER, SELFPAY ==
[2024-01-19 09:44] LABS: Hematocrit 36.8 % (36-47); Mean Corpuscular HGB Conc 30.4 g/dL (30-55); Mean Corpuscular Volume 95.3 fl (85-98); Platelet Count 129 10^3/cmm (157-399); Red Blood Count 3.86 10^6/uL (3.85-5.65); Red Cell Distribution Width 14.3 % (12.1-15.1)
[2024-01-19 10:01] LABS: Alanine Aminotransferase 12 U/L (0-33); Albumin Level 4.2 g/dL (3.5-5.2); Alkaline Phosphatase 89 U/L (35-105); Anion Gap 15.1 (5-19); Aspartate Amino Transferase 27 U/L (0-32); Blood Urea Nitrogen 11 mg/dL (8-23); Calcium 8.7 mg/dL (8.5-10.5); Carbon Dioxide 27 mmol/L (22-29); Chloride 102 mmol/L (98-107); Globulin 2.4 g/dL (1.3-4.6); Glucose 101 mg/dL (65-115); Lactate Dehydrogenase 393 U/L (135-214); Osmolality Calculated 290 mOsm/kg (285-295); Potassium 4.1 mmol/L (3.5-5.1); Sodium 140 mmol/L (136-145); Total Bilirubin 0.5 mg/dL (0.15-1.2); Total Protein 6.6 g/dL (6.6-8.7)
[2024-01-19 10:07] LABS: Slide Review Slide Review Perform
[2024-01-19 10:08] LABS: Absolute Eosinophils 0.8 10^3/cmm (0.0-0.7); Absolute Neutrophil 3.4 10^3/cmm (1.4-6.5); Absolute Segmented Neutrophil 3.4 10/cmm (1.6-7.1); Eosinophils 1 %; Lymphocytes 8 %; Lymphocytes Absolute 79.6 10^3/cmm (1.2-3.4); Macrocytosis 1+; Microcytosis 1+; Platelet Estimate Decreased (Normal); Segmented Neutrophils 4 %; Total Cells Counted 100 (0-100)
== END 2024-02-07 23:59 | disposition home or self-care (01) ==
LOC: ONCMED 08:55
PROVIDERS: PCP Nurse Practitioner; Visit Provider Internal Medicine Medical Oncology
DX: C91.10 Chronic lymphocytic leukemia of B-cell type not having achieved remission (principal); Z79.899 Other long term (current) drug therapy
CPT/HCPCS: 36415; 80053; 83615; 85007; 85025; 99214

== ENCOUNTER → 2024-02-06 10:29 | Outpatient (BNVA) | payer MEDICARE, OTHER, SELFPAY | PROVIDERS: PCP Nurse Practitioner; Visit Provider Podiatrist Foot & Ankle Surgery | DX: E11.65 Type 2 diabetes mellitus with hyperglycemia (principal); Z79.4 Long term (current) use of insulin; L60.3 Nail dystrophy | CPT/HCPCS: 11721 ==

== ENCOUNTER → 2024-03-05 14:31 | Outpatient (BNVA) | payer MEDICARE, OTHER, SELFPAY | PROVIDERS: PCP Nurse Practitioner; Visit Provider Psychiatry & Neurology Neurology | DX: G70.00 Myasthenia gravis without (acute) exacerbation (principal); H53.2 Diplopia; G96.9 Disorder of central nervous system, unspecified; R25.1 Tremor, unspecified; M62.838 Other muscle spasm; C91.10 Chronic lymphocytic leukemia of B-cell type not having achieved remission | CPT/HCPCS: 99212; 99213 ==

== ENCOUNTER → 2024-03-21 11:07 | Outpatient (BNVA) | payer MEDICARE, OTHER, SELFPAY | PROVIDERS: PCP Nurse Practitioner; Visit Provider Nurse Practitioner Family | DX: I25.10 Atherosclerotic heart disease of native coronary artery without angina pectoris (principal); I10 Essential (primary) hypertension; Z95.0 Presence of cardiac pacemaker; Z87.891 Personal history of nicotine dependence | CPT/HCPCS: 99214 ==

== ENCOUNTER → 2024-04-02 14:19 | Outpatient (BNVA) | payer MEDICARE, OTHER, SELFPAY | PROVIDERS: PCP Nurse Practitioner; Visit Provider Nurse Practitioner | DX: Z79.4 Long term (current) use of insulin (principal); E11.65 Type 2 diabetes mellitus with hyperglycemia | CPT/HCPCS: 81000 ==

== ENCOUNTER → 2024-04-03 10:33 | Outpatient (BNVA) | payer MEDICARE, OTHER, SELFPAY | PROVIDERS: PCP Nurse Practitioner; Visit Provider Internal Medicine Cardiovascular Disease | DX: Z45.018 Encounter for adjustment and management of other part of cardiac pacemaker (principal) | CPT/HCPCS: 93296 ==

== ENCOUNTER 2024-05-02 15:56 | Oncology outpatient (recurring) (ONCR) | payer MEDICARE, OTHER, SELFPAY ==
[2024-04-11 11:30] LABS: Hematocrit 37.9 % (36-47); Mean Corpuscular HGB Conc 32.5 g/dL (30-55); Mean Corpuscular Hemoglobin 29.6 pg (27-33); Mean Corpuscular Volume 91.1 fl (85-98); Mean Platelet Volume 8.5 fL (7.4-10.4); Platelet Count 110 10^3/cmm (157-399); Red Blood Count 4.16 10^6/uL (3.85-5.65); Red Cell Distribution Width 14.3 % (12.1-15.1)
[2024-04-11 11:42] LABS: Estmated Average Glucose 120; Hemoglobin A1C 5.8 % (4.0-6.0)
[2024-04-11 11:52] LABS: White Blood Count 101.97 10^3/uL (3.29-11.43)
[2024-04-11 12:15] LABS: Slide Review Slide Review Perform; Total Cells Counted 100 (0-100)
[2024-04-11 12:16] LABS: Absolute Neutrophil 9.2 10^3/cmm (1.4-6.5); Absolute Segmented Neutrophil 9.2 10/cmm (1.6-7.1); Anisocytosis 1+; Eosinophils 0 %; Lymphocytes 48 %; Lymphocytes Absolute 86.7 10^3/cmm (1.2-3.4); Monocytes Absolute 5.1 10^3/cmm (0.1-0.6); Platelet Estimate Decreased (Normal); Segmented Neutrophils 9 %; Smudge Cells 1+
[2024-04-11 12:32] LABS: Alanine Aminotransferase 13 U/L (0-33); Albumin Level 3.9 g/dL (3.5-5.2); Alkaline Phosphatase 66 U/L (35-105); Anion Gap 15.4 (5-19); Aspartate Amino Transferase 22 U/L (0-32); Blood Urea Nitrogen 15 mg/dL (8-23); Calcium 8.6 mg/dL (8.5-10.5); Carbon Dioxide 24 mmol/L (22-29); Chloride 102 mmol/L (98-107); Chol HDL Ratio 3.59 mg/dL (0.0-4.40); Cholesterol 104 mg/dL (0-200); Globulin 2.3 g/dL (1.3-4.6); Glucose 95 mg/dL (65-115); HDL Cholesterol 29 mg/dL (60-100); LDL Cholesterol Calculated 38 mg/dL (50-129); LDL HDL Ratio 1.31 RATIO (0.00-3.22); Osmolality Calculated 285 mOsm/kg (285-295); Potassium 4.4 mmol/L (3.5-5.1); Sodium 137 mmol/L (136-145); Thyroid Stimulating Hormone 0.54 uIU/mL (0.27-4.20); Total Bilirubin 0.4 mg/dL (0.15-1.2); Total Protein 6.2 g/dL (6.6-8.7); Triglycerides 184 mg/dL (0-150); Vitamin B12 293 pg/mL (232-1245)
[2024-04-11 13:07] LABS: Bilirubin Urine Negative (Negative); Blood Urine Negative (Negative); Glucose Urine UA Negative (Normal); Ketones Urine Negative (Negative); Leukocyte Esterase Urine Negative (Negative); Nitrate Urine Negative (Negative); Protein Urine Negative (Negative); Specific Gravity, Urine 1.005 (1.005-1.030); Urine Appearance Clear (CLEAR); Urine Color Yellow (Yellow); Urobilinogen Urine 0.2 mg/dL (Negative); pH Urine 6.5 (5-7)
[2024-04-11 13:32] LABS: Lactate Dehydrogenase 326 U/L (135-214)
[2024-04-11 13:40] LABS: Add Urine Culture? No; RBC Urine RARE /hpf (0-2)
--- NOTE | 2024-04-25 14:00 | CTR_ITS ---
PROCEDURE INFORMATION: Exam: CT Chest With Contrast; Diagnostic Exam date and time: 04/25/2024 3:40 PM Age: 84 years old Clinical indication: Condition or disease; Other: Leukemia; Primary cancer: Lukemia; Prior surgery; Surgery date: 6+ months; Surgery type: Gb, brain, thyroidectomy, appy, pacemaker, polyectomy; Additional info: Restaging TECHNIQUE: Imaging protocol: Diagnostic computed tomography of the chest with contrast. Radiation optimization: All CT scans at this facility use at least one of these dose optimization techniques: automated exposure control; mA and/or kV adjustment per patient size (includes targeted exams where dose is matched to clinical indication); or iterative reconstruction. Contrast material: OMNI 350; Contrast volume: 100 ml; Contrast route: INTRAVENOUS (IV); COMPARISON: CT chest w con* [id number] 04/28/2023 10:20 AM RADIATION DOSE METRICS: Total DLP (mGy-cm): 691.56 FINDINGS: Tubes, catheters and devices: Dual chamber pacemaker/cardioverter in appropriate position with lead tips in the right atrium and right ventricle. Lungs: Right lung calcified granuloma is benign. Stable 5 mm solid nodule right upper lobe. Stable focal scar-like band in the right middle lobe. Stable polygonal bandlike scar in the left upper lobe. No new lung stable subtle slightly spiculated ground-glass nodules in the bilateral lower lobes. No new lung nodules. Pleural spaces: Unremarkable. No pneumothorax. No pleural effusion. Heart: Calcifications of the aortic valve annulus. Coronary arteries: There is moderate atherosclerotic calcification of the coronary arteries. Lymph nodes: Progression in the size and number of bilateral axillary lymph nodes: For example, a 1.6 cm right axillary lymph node previously measured 1.3 cm and a 1.5 cm left axillary lymph node previously measured 5 mm. Right supraclavicular adenopathy remains stable. Stable prominent subcarinal lymph node measuring up to 1.1 cm in short axis. New 8 mm slightly enlarged left cardiophrenic angle lymph node. Vasculature: Aberrant right subclavian artery, anatomical variant. Moderate atherosclerotic calcification of the arterial vasculature. Bones/joints: Stable changes related to left thoracostomy, including mild left lower lobe herniation into the left lateral thoracic wall. Bone demineralization. Stable sclerotic focus anterior segment right 7th rib. Mild multilevel degenerative changes of the spine. No aggressive osseous lesions. Soft tissues: No acute body wall soft tissue findings. PROCEDURE INFORMATION: Exam: CT Abdomen And Pelvis With Contrast Exam date and time: 04/25/2024 3:40 PM Age: 84 years old Clinical indication: Condition or disease; Other: Leukemia; Primary cancer: Lukemia; Prior surgery; Surgery date: 6+ months; Surgery type: Gb, brain, thyroidectomy, appy, pacemaker, polyectomy; Additional info: Restaging TECHNIQUE: Imaging protocol: Computed tomography of the abdomen and pelvis with contrast. Radiation optimization: All CT scans at this facility use at least one of these dose optimization techniques: automated exposure control; mA and/or kV adjustment per patient size (includes targeted exams where dose is matched to clinical indication); or iterative reconstruction. Contrast material: OMNI 350; Contrast volume: 100 ml; Contrast route: INTRAVENOUS (IV); COMPARISON: CT angio chest w abd pel w con 08/15/2022 3:56 PM RADIATION DOSE METRICS: Total DLP (mGy-cm): 691.56 FINDINGS: Liver: Diffuse decrease in hepatic parenchymal density, consistent with fatty infiltration. Gallbladder and biliary ducts: Cholecystectomy. Mild intra-and extrahepatic biliary ductal dilation is most likely the sequela of prior cholecystectomy in the absence of clinical symptomatology. If warranted, consider correlation with biliary levels. Pancreas: Diffuse atrophy of the pancreatic parenchyma. 7 mm cyst in the pancreatic tail is stable. This is of no concern at this time. Spleen: Spleen is enlarged measuring 15 cm in length. Benign calcified granuloma in the spleen. Adrenal glands: Normal. No mass. Kidneys and ureters: Nonobstructive left nephrolithiasis, stable. Stable parenchymal defect in the left kidney versus cortical scarring. There is no evidence of hydronephrosis. Stable 1.5 cm benign right renal cyst. Very subtle mild right renal pelviectasis and ureterectasis with a stone just distal to the right UVJ measuring 5 mm. Stomach and bowel: Mild colonic diverticulosis. Under distended ascending colon with pseudo wall thickening. No bowel obstruction. Appendix: No evidence of appendicitis. Intraperitoneal space: Stable well-defined fat density lesion in the root of the mesentery which measures 5.5 x 8 cm and does not have any concerning characteristics. This is in keeping with a mesenteric lipoma. Vasculature: Moderate arterial atherosclerosis without aneurysms. Lymph nodes: New bilateral inguinal adenopathy (largest right inguinal node measures 1.5 cm and largest left inguinal node measures 1.5 cm), bilateral pelvic sidewall adenopathy (largest on the right measures 1.7 cm and largest on the left measures 1.9 cm), bilateral iliac chain adenopathy, retroperitoneal adenopathy (measuring up to 1.4 cm), and periportal adenopathy (measuring up to 2.9 cm). New mesenteric adenopathy (largest lymph node measures up to 1 cm). Urinary bladder: Unremarkable as visualized. Reproductive: There has been a hysterectomy. Bones/joints: Bone demineralization. Mild degenerative changes of the lumbar spine without acute fracture or dislocation. Soft tissues: Calcified granuloma left buttock. CT/CT chest abdpel w/*[id number] IMPRESSION: 1. Mild progression in bilateral axillary adenopathy. 2. Right supraclavicular adenopathy remains stable. 3. Stable prominent subcarinal lymph node measuring up to 1.1 cm in short axis. 4. New 8 mm slightly enlarged left cardiophrenic angle lymph node. Although not concerning by size, it is suspicious and should be followed. 5. Remainder of the chest is stable. IMPRESSION: 1. Very subtle mild right renal pelviectasis and ureterectasis with a stone just distal to the right UVJ measuring 5 mm. Question if this stone is causing a very mild partial obstruction. 2. New mesenteric,inguinal, pelvic, and retroperitoneal adenopathy. 3. New splenomegaly.
[2024-04-25] MEDS: iohexol 350 mg/mL 500 mL Btl (per mL) PO (14:16)
[2024-04-25] MEDS: iohexol 350 mg/mL 500 mL Btl (per mL) IV (16:29)
== END 2024-05-09 23:59 | disposition home or self-care (01) ==
PROVIDERS: Nurse Practitioner Family; PCP Nurse Practitioner; Visit Provider Nurse Practitioner Family
DX: C91.10 Chronic lymphocytic leukemia of B-cell type not having achieved remission (principal); G70.00 Myasthenia gravis without (acute) exacerbation; Z87.891 Personal history of nicotine dependence; R59.9 Enlarged lymph nodes, unspecified; R16.1 Splenomegaly, not elsewhere classified; Z99.3 Dependence on wheelchair
CPT/HCPCS: 36415; 71260; 74177; 80053; 80061; 81001; 82607; 83036; 83615; 84443; 85007; 85025; 99214

== ENCOUNTER → 2024-05-07 11:12 | Outpatient (BNVA) | payer MEDICARE, OTHER, SELFPAY | PROVIDERS: PCP Nurse Practitioner; Visit Provider Podiatrist Foot & Ankle Surgery | DX: E11.65 Type 2 diabetes mellitus with hyperglycemia (principal); Z79.4 Long term (current) use of insulin; L60.3 Nail dystrophy; I10 Essential (primary) hypertension | CPT/HCPCS: 11721 ==

== ENCOUNTER → 2024-06-03 10:09 | Outpatient (BNVA) | payer MEDICARE, OTHER, SELFPAY | PROVIDERS: PCP Nurse Practitioner; Visit Provider Internal Medicine Rheumatology | DX: Z79.899 Other long term (current) drug therapy (principal); M05.79 Rheumatoid arthritis with rheumatoid factor of multiple sites without organ or systems involvement; C91.10 Chronic lymphocytic leukemia of B-cell type not having achieved remission | CPT/HCPCS: 99214 ==

== ENCOUNTER 2024-06-20 06:00 | Outpatient (RCR) | payer MEDICARE, OTHER, SELFPAY | END 2024-07-09 23:59 | disposition home or self-care (01) | LOC: SOT 06:00 | PROVIDERS: Visit Provider Nurse Practitioner | DX: G70.00 Myasthenia gravis without (acute) exacerbation (principal) | CPT/HCPCS: 97167 ==

== ENCOUNTER 2024-06-27 12:04 | Oncology outpatient (recurring) (ONCR) | payer MEDICARE, OTHER, SELFPAY ==
[2024-06-27 13:51] LABS: Hematocrit 37.2 % (36-47); Mean Corpuscular HGB Conc 31.2 g/dL (30-55); Mean Corpuscular Hemoglobin 30.1 pg (27-33); Mean Corpuscular Volume 96.4 fl (85-98); Mean Platelet Volume 8.4 fL (7.4-10.4); Platelet Count 95 10^3/cmm (157-399); Red Blood Count 3.86 10^6/uL (3.85-5.65)
[2024-06-27 13:54] LABS: Erythrocyte Sedimentation Rate < 1 mm/hr (0-15)
[2024-06-27 14:06] LABS: Alanine Aminotransferase 16 U/L (0-33); Albumin Level 4.1 g/dL (3.5-5.2); Alkaline Phosphatase 55 U/L (35-105); Anion Gap 8.8 (5-19); Aspartate Amino Transferase 22 U/L (0-32); Blood Urea Nitrogen 18 mg/dL (8-23); Calcium 8.4 mg/dL (8.5-10.5); Carbon Dioxide 33 mmol/L (22-29); Chloride 102 mmol/L (98-107); Globulin 2.1 g/dL (1.3-4.6); Glucose 107 mg/dL (65-115); Osmolality Calculated 292 mOsm/kg (285-295); Potassium 3.8 mmol/L (3.5-5.1); Sodium 140 mmol/L (136-145); Total Bilirubin 0.4 mg/dL (0.15-1.2); Total Protein 6.2 g/dL (6.6-8.7)
[2024-06-27 14:08] LABS: Alanine Aminotransferase 17 U/L (0-33); Albumin Level 4.2 g/dL (3.5-5.2); Alkaline Phosphatase 57 U/L (35-105); Aspartate Amino Transferase 23 U/L (0-32); Globulin 2.2 g/dL (1.3-4.6); Lactate Dehydrogenase 305 U/L (135-214); Total Bilirubin 0.4 mg/dL (0.15-1.2); Total Protein 6.4 g/dL (6.6-8.7); Uric Acid 4.7 mg/dL (2.4-5.7)
[2024-06-27 14:18] LABS: Slide Review Slide Review Perform
[2024-06-27 14:19] LABS: Eosinophils 0 %; Platelet Estimate Decreased (Normal); Segmented Neutrophils 5 %; Total Cells Counted 100 (0-100)
[2024-06-27 14:23] LABS: Monocytes Absolute 0.8 10^3/cmm (0.1-0.6)
[2024-06-27 14:24] LABS: Lymphocytes 68 %; Lymphocytes Absolute 75.1 10^3/cmm (1.2-3.4)
[2024-06-27 14:27] LABS: White Blood Count 79.93 10^3/uL (3.29-11.43)
== END 2024-07-09 23:59 | disposition home or self-care (01) ==
PROVIDERS: Internal Medicine Hematology & Oncology; Internal Medicine Rheumatology; Visit Provider Internal Medicine
DX: C91.10 Chronic lymphocytic leukemia of B-cell type not having achieved remission (principal); Z87.891 Personal history of nicotine dependence; Z79.899 Other long term (current) drug therapy; M05.79 Rheumatoid arthritis with rheumatoid factor of multiple sites without organ or systems involvement; G70.00 Myasthenia gravis without (acute) exacerbation
CPT/HCPCS: 36415; 80053; 80076; 82565; 83615; 84550; 85007; 85025; 85651; 86140; 99213

== ENCOUNTER → 2024-07-26 14:04 | Outpatient (BNVA) | payer MEDICARE, OTHER, SELFPAY | PROVIDERS: Visit Provider Clinical Nurse Specialist Adult Health | DX: J06.9 Acute upper respiratory infection, unspecified (principal) | CPT/HCPCS: 87400; 87426 ==

== ENCOUNTER 2024-08-21 13:16 | Emergency (ER) | payer MEDICARE, OTHER, SELFPAY ==
[2024-08-21 13:55] VITALS: BP 110/57; PULSE 79; RESP 17; TEMP 36.7; O2SAT 96; BMI 24.7
--- NOTE | 2024-08-21 14:28 | CTR_ITS ---
PROCEDURE INFORMATION: Exam: CT Head Without Contrast Exam date and time: 08/21/2024 3:56 PM Age: 84 years old Clinical indication: Pain; Headache; Migraine; Aura effect not specified; Prior surgery; Surgery date: 6+ months; Surgery type: Crainotomy; Additional info: Sudden right sided DURAND, HX of cancer and craniotomy x3 TECHNIQUE: Imaging protocol: Computed tomography of the head without contrast. Radiation optimization: All CT scans at this facility use at least one of these dose optimization techniques: automated exposure control; mA and/or kV adjustment per patient size (includes targeted exams where dose is matched to clinical indication); or iterative reconstruction. COMPARISON: CT head wo con* [id number] 09/04/2023 5:31 PM RADIATION DOSE METRICS: Total DLP (mGy-cm): 1006.98 FINDINGS: Brain: There are global involutional changes of the brain which are in keeping with the patient's age. Periventricular hypodensities are nonspecific but most likely reflect chronic microvascular ischemic disease. Benign basal ganglia calcifications are noted. Chronic cerebellar calcifications again noted. There is no acute intracranial hemorrhage or midline shift. Cerebral ventricles: No ventriculomegaly. Paranasal sinuses: Visualized sinuses are unremarkable. No fluid levels. Mastoid air cells: Minimal bilateral mastoid effusions. Bones: Calcified extra-axial lesion, incompletely visualized, located in the left foramen ovale and following the contours of the left basiocciput, appears unchanged compared to prior examinations, likely reflects a calcified meningioma. Soft tissues: Right parietal scalp injury noted. CT/CT head wo con* [id number] IMPRESSION: No acute intracranial abnormality identified by CT.
--- NOTE | 2024-08-21 14:32 | W.ED.HA ---
HPI - Headache General: Chief Complaint: Headache Stated Complaint: unexp bruising over entire body Time Seen by Provider: 08/21/24 14:08 Source: patient Mode of arrival: ambulatory Limitations: no limitations History of Present Illness: Patient is an 84-year-old female presents the emergency department with diffuse bruising that is chronic though has been worsening over the past week. This patient has a history of chronic lymphocytic leukemia, diabetes, COPD, and myasthenia gravis. She also has history of craniotomy for meningioma, stating she required 3 separate brain surgeries for this. She is followed by oncology here, of note she was diagnosed with her CLL back in 04/28/2019. This has been monitored since not requiring any chemotherapy, she received IVIG last September for 5 days, for her myasthenia gravis. With her last visit with oncology on 06/27/2024, she had labs showing WBC 79.93, neutrophil 5, L70 5%, hemoglobin 11.6, MCV 96, platelet 95, BUN/creatinine 18/0.8, uric acid 4.7, LDH 305, CRP 3, albumin 4.1. She had no complaints and plan was routine monitoring and consideration for oral Calquence as needed. Patient became concerned today as about 45 minutes prior to arrival she had sudden onset right sided headache, and noticed spontaneous bleeding to her left upper eyelid that is pruritic. She states over the past week she has noticed increased nontraumatic bruising, specifically to her bilateral lower extremities and 1 to her right chest. All of these areas are pruritic, she denies any known trauma that would cause these bleeds. She is not reporting any fever, chest pain or shortness of breath, nausea vomiting diarrhea, or other symptoms at this time. Denies history of migraines, states she was not significantly exerting herself when the pain in her head began. 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) Onset description: suddenly Location: right Severity: moderate Exacerbating factors: none Relieving factors: nothing Context: occurred at rest Associated symptoms: Deny chest pain, confusion, fever(s), lightheadedness, nausea, rash or vomiting Treatments prior to arrival: none Related Data Home Medications ?Medication ?Instructions ?Recorded ?Confirmed aspirin 81 mg tablet,delayed 81 mg PO QAM 08/09/23 06/27/24 release Thc Capsule 20mg 1 cap PO QPM 09/05/23 06/27/24 cascara sagrada 500 mg capsule 500 mg PO BEDTIME PRN Constipation 09/05/23 06/27/24 cholecalciferol (vitamin D3) 125 5,000 unit PO QAM 09/05/23 06/27/24 mcg (5,000 unit) tablet (Vitamin D3) cranberry concentrate-ascorbic 1 cap PO QAM 09/05/23 06/27/24 acid 140 mg-100 mg capsule (Cranberry Plus Vitamin C) omeprazole 20 mg capsule,delayed 20 mg PO BID 09/05/23 06/27/24 release tolterodine 2 mg tablet 2 mg PO QAM 09/05/23 06/27/24 Previous Rx's ?Medication ?Instructions ?Recorded Power chair repair #1 ea 09/27/22 albuterol sulfate 2.5 mg/3 mL 2.5 mg (3 mL) inhalation QID PRN 02/23/23 (0.083 %) solution for nebulization shortness of breath or wheezing #360 mL diazepam 2 mg tablet (Valium) 2 mg PO TID PRN muscle spasm #90 03/05/24 tabs flash glucose scanning reader #1 ea 04/08/24 ([employer] William 2 Mountainair) E0627 Power Chair with lift #1 ea 04/21/24 Roho Wheelchair Coushion [id number] #1 ea 04/21/24 albuterol sulfate 90 mcg/actuation 2 puff inhalation QID PRN 04/21/24 aerosol inhaler Shortness Of Breath #6.7 grams budesonide 160 mcg-glycopyr 9 2 inh inhalation BID PRN Shortness 04/21/24 mcg-formot 4.8 mcg/actuation HFA Of Breath #10.7 grams inhaler (Breztri Aerosphere) cyclobenzaprine 10 mg tablet 10 mg PO .at bedtime #90 tabs 04/21/24 furosemide 20 mg tablet 20 mg PO QAM #90 tabs 04/21/24 insulin aspart U-100 100 unit/mL See Rx Instructions SUBCUT TID #15 04/21/24 (3 mL) subcutaneous pen (Novolog mL FlexPen U-100 Insulin aspart) insulin glargine U-300 conc 300 See Rx Instructions .Route 04/21/24 unit/mL (3 mL) subcutaneous pen .COMPLEX #18 mL (Toujeo Max U-300 SoloStar) levothyroxine 88 mcg tablet 88 mcg PO QAM #90 tabs 04/21/24 lidocaine 5 % topical patch 1 patch topical [id number] #90 ea 04/21/24 simvastatin 20 mg tablet 20 mg PO BEDTIME #90 tabs 04/21/24 prednisone 10 mg tablet See Rx Instructions PO .COMPLEX 06/03/24 PRN joint pain #30 tabs prednisone 5 mg tablet 5 mg PO DAILY #30 tabs 06/03/24 prednisone 5 mg tablet 5 mg PO DAILY #90 tabs 06/03/24 benzonatate 100 mg capsule 100 mg PO TID PRN cough #45 caps 07/26/24 levofloxacin 750 mg tablet 750 mg PO DAILY #7 tabs 07/26/24 flash glucose sensor (FreeStyle #7 ea 08/09/24 William 2 Sensor kit) Allergies Allergy/AdvReac Type Severity Reaction Status Date / Time pneumococcal vaccine Allergy ALGY-Rash Verified 08/21/24 14:02 Sulfa (Sulfonamide Allergy RASH Verified 08/21/24 14:02 Antibiotics) Review of Systems General: Reports: 10 or more systems reviewed and unremarkable except in HPI and below Const: Denies: fever(s), chills or fatigue Eyes: Denies: change in vision ENMT: Denies: throat pain, ear or mastoid pain or nasal discharge Card: Denies: chest pain, palpitations, swelling of feet/ankles or lightheadedness Resp: Denies: dyspnea, productive cough or wheezing GI: Denies: abdominal pain, nausea, vomiting, diarrhea or constipation : Denies: flank pain, difficulty voiding, dysuria or urinary frequency Musc: Denies: neck pain, back pain or joint pain Skin/Breast: Reports: pruritus; Denies: rash Neuro: Reports: headache(s); Denies: numbness in extremities, weakness in extremities, sensory changes, dizziness or confusion Rio/Lymph: Reports: easy bruising (More spontaneous than usual, most recent to left upper eyelid) PFS ED PFSH: Medical History High risk medication use Seropositive rheumatoid arthritis of multiple sites Generalized weakness Atherosclerosis of [place] coronary artery without angina pectoris Chronic lymphocytic leukemia Urolithiasis Left ureteral calculus Myasthenia gravis UTI (urinary tract infection) Diabetes mellitus with hyperglycemia, with long-term current use of insulin Environmental and seasonal allergies Essential hypertension, benign Pneumonia Hyperlipidemia Vitamin D deficiency Vitamin B 12 deficiency COPD (chronic obstructive pulmonary disease) Depression with anxiety Hypothyroidism Neuropathy Surgical History History of basal cell carcinoma (BCC) excision History of hysterectomy with bilateral oophorectomy For cervical cancer History of appendectomy History of colonoscopy with polypectomy (11/17/21) Pacemaker 04/05/2019 H/O thyroidectomy Total thyroidectomy followed by radioactive iodine ablation for thyroid cancer H/O reduction of closed fracture left wrist 10/23/2015 Hx of cholecystectomy H/O brain surgery Craniotomy x 4 for meningioma H/O esophagogastroduodenoscopy (11/17/21) 2013 Family History Mother , AT 92 Anesthesia complication CAD (coronary artery disease) Cancer Dementia Stroke Brother CAD (coronary artery disease) Cancer Suicide Sister CAD (coronary artery disease) Suicide Grandmother Cancer Dementia Stroke Family/Other Cancer Dementia Stroke Brother Suicide Brother Suicide Father , IN HIS 60'S Alcoholic Liver disease Denies family history of Diabetes Clotting disorder Chronic kidney disease (CKD) Bleeding disorder Lung disease Social History Smoking and tobacco/nicotine status: former use of tobacco/nicotine Quit status (tobacco/nicotine): has quit using Year quit tobacco: 1997 Former quit date comment: 1 ppd X 45 years Second hand smoke exposure: No Alcohol intake: unknown Substance/Drug Use: unknown Adopted: No Caregiver/support person: Yes Lives independently: No Household members: family Housing: House Marital status: / Number of children: 2 service: No Current occupational status: retired Current occupational exposures/hazards: No Do you think of yourself as: Straight/Heterosexual Physical Exam Const: COMMON NORMALS: no acute distress, average body habitus, patient oriented x3, no limitations, healthy appearing and alert HENMT: COMMON NORMALS: normocephalic, atraumatic and moist oral mucous membranes HEAD & SCALP: normocephalic and atraumatic THROAT: posterior oropharynx normal OTHER: No mucosal bruising or bleeding Eye: COMMON NORMALS: Equal, round and reactive pupils present, EOMs intact bilaterally, conjunctivae normal and normal visual hay by confrontation CONJUNCTIVA: Yes conjunctivae normal PUPIL: Yes Equal, round and reactive pupils present OTHER: Hematoma to left medial upper eyelid EYE IMAGES:  1. hematoma present Neck/C-Spine: COMMON NORMALS: full ROM, no meningeal signs and no JVD Resp: COMMON NORMALS: normal respiratory effort, No retractions, No use of accessory muscles and clear to auscultation bilaterally AUSCULTATION: clear to auscultation bilaterally Cardio: COMMON NORMALS: no JVD, regular rate, regular rhythm, S1 normal heart sound present, S2 normal heart sound present, No gallops present (Cardio), No murmurs present (Cardio) and No rub (Cardio) RATE: regular rate RHYTHM: regular rhythm HEART SOUNDS: S1 normal heart sound present and S2 normal heart sound present GI: COMMON NORMALS: non-tender and No hepatosplenomegaly present INSPECTION: Yes abdominal distension and Yes central obesity PALPATION: Yes No hepatosplenomegaly present Extremity: COMMON NORMALS: full ROM, capillary refill normal, no clubbing, cyanosis or edema and no pedal edema NARRATIVE EXTREMITY EXAM: See skin exam Neuro: COMMON NORMALS: patient oriented x3, CN's II-XII intact bilaterally, moves all extremities, no focal motor deficits and no sensory deficits noted SENSORIUM/ORIENTATION: Yes alert MENINGEAL SIGNS: Yes no meningeal signs Skin: NARRATIVE SKIN EXAM: There is diffuse ecchymosis, specifically to her left lateral vo, right medial thigh, and right anterior chest wall that is pruritic in nature. Scattered areas of chronic ecchymosis to the upper extremities, all in separate stages of healing. These are reported to be a result of trauma. Course Vital Signs: Vital signs: Vital Signs Temperature 98.1 F 08/21/24 13:55 Pulse Rate 69 08/21/24 17:30 Respiratory Rate 17 08/21/24 13:55 Blood Pressure 121/75 08/21/24 17:30 Pulse Oximetry 96 08/21/24 17:30 Oxygen Delivery Me thod Room Air 08/21/24 17:30 MDM - Headache Medical Decision Making Patient has a history of CLL and presented for increased bruising, requiring less trauma, as well as a sudden onset right sided headache. Neurologically she was completely intact on physical exam, and her bruising was to her extremities in various stages of healing. The newest bruising was to her left upper eyelid, ocular examination otherwise was unremarkable this did appear to be localized just to the left upper eyelid. Compared her CBC with labs obtained back in June with oncology, there is either improvement or no change. Her PT/INR and PTT are within normal limits and her metabolic panel was also unremarkable. Platelets have increased from prior labs obtained in June as well. With her history of meningioma and previous craniotomy a CT was ordered that did not demonstrate any intracranial abnormality here. Serial examination did not demonstrate any worsening and she had actually stated her headache was getting better. Vitals have been stable. I did speak with on-call oncologist, Dr. Padron, who is aware of the patient's case and has been seeing her in the office for oncologic visits. He states that with the state of her labs she can follow-up with him in office over the next couple of days. I discussed this plan with the patient, who agrees. Informed her to return with any worsening of condition, specifically if notices any neurological issues, and they verbalized understanding. Discussed case briefly with Dr. Rendon here in the ED. Lab Data 08/21/24 14:21 08/21/24 14:[address] 08/21/24 14:28 IMPRESSION: No acute intracranial abnormality identified by CT. Laboratory Results WBC 50.96 10^3/uL (3.29-11.43) H* 08/21/24 14: RBC 3.63 10^6/uL (3.85-5.65) L 08/21/24 14:21 Hgb 11.20 g/dL (11.27-16.99) L 08/21/24 14: Hct 34.7 % (36-47) L 08/21/24 14:21 MCV 95.6 fl (85-98) 08/21/24 14: MCH 30.9 pg (27-33) 08/21/24 14: MCHC 32.3 g/dL (30-55) 08/21/24 14: RDW 14.8 % (12.1-15.1) 08/21/24 14: Plt Count 99 10^3/cmm (157-399) L 08/21/24 14:21 MPV 8.9 fL (7.4-10.4) 08/21/24 14:21 Neut % (Auto) 4.1 % 08/21/24 14:21 Lymph % (Auto) 87.9 % 08/21/24 14:21 Ware % (Auto) 6.9 % 08/21/24 14:21 Eos % (Auto) 0.4 % 08/21/24 14:21 Baso % (Auto) 0.3 % 08/21/24 14:21 Neut # (Auto) 2.17 10^3/uL (1.8-7.7) 08/21/24 14:21 Lymph # (Auto) 44.8 10^3/uL (0.8-4.8) H 08/21/24 14:21 Ware # (Auto) 3.5 10^3/uL (0.2-0.9) H 08/21/24 14:21 Eos # (Auto) 0.2 10^3/uL (0.0-0.8) 08/21/24 14:21 Baso # (Auto) 0.1 10^3/uL (0.0-0.1) 08/21/24 14:21 Nucleated RBC % (auto) 0.1 % 08/21/24 14: Nucleated RBCs # 0.0 /100WBC 08/21/24 14:21 PT 14.00 SECONDS (12.1-14.9) 08/21/24 14:21 INR 1.01 (0.8-1.2) 08/21/24 14:21 APTT 30.2 SECONDS (23.9-36.7) 08/21/24 17:05 Sodium 141 mmol/L (136-145) 08/21/24 14:21 Potassium 3.9 mmol/L (3.5-5.1) 08/21/24 14:21 Chloride 102 mmol/L (98-107) 08/21/24 14:21 Carbon Dioxide 27 mmol/L (22-29) 08/21/24 14:21 Anion Gap 15.9 (5-19) 08/21/24 14:21 BUN 13 mg/dL (8-23) 08/21/24 14:21 Creatinine 0.7 mg/dL (0.5-0.9) 08/21/24 14:21 GFR Calculation Not Reportable 08/21/24 14:21 Glucose 117 mg/dL (65-115) H 08/21/24 14:21 Calculated Osmolality 293 mOsm/kg (285-295) 08/21/24 14:21 Calcium 9.5 mg/dL (8.5-10.5) 08/21/24 14:21 Total Bilirubin 0.5 mg/dL (0.15-1.2) 08/21/24 14:21 AST 23 U/L (0-32) 08/21/24 14:21 ALT 8 U/L (0-33) 08/21/24 14:21 Alkaline Phosphatase 71 U/L (35-105) 08/21/24 14:21 Total Protein 6.6 g/dL (6.6-8.7) 08/21/24 14:21 Albumin 4.3 g/dL (3.5-5.2) 08/21/24 14:21 Globulin 2.3 g/dL (1.3-4.6) 08/21/24 14:21 All radiology interpretation(s) finalized by discharge Discharge Plan Discharge Patient Disposition: Home Clinical Impression: Bruising, Chronic lymphocytic leukemia Migraine Qualifiers: Migraine type: unspecified Status migrainosus presence: without status migrainosus Intractability: not intractable Qualified Code(s): G43.909 - Migraine, unspecified, not intractable, without status migrainosus Condition: Stable Prescriptions: No Action albuterol sulfate 2.5 mg /3 mL (0.083 %) solution for nebulization 2.5 mg inhalation QID PRN (Reason: shortness of breath or wheezing) Qty: 360 3RF (DME) Roho Wheelchair Coushion E2622 See Rx Instructions .Route .MEDSUPPLY Qty: 1 0RF Rx Instructions: use in wheelchair or powerchair (DME) E0627 Power Chair with lift See Rx Instructions .Route .MEDSUPPLY Qty: 1 0RF Rx Instructions: use daily for mobility 99 months albuterol sulfate 90 mcg/actuation HFA aerosol inhaler 2 puff INHALATION QID PRN (Reason: Shortness Of Breath) Qty: 6.7 1RF Breztri Aerosphere 160-9-4.8 mcg/actuation HFA aerosol inhaler 2 inh inhalation BID PRN (Reason: Shortness Of Breath) Qty: 10.7 1RF cyclobenzaprine 10 mg tablet 10 mg PO .at bedtime Qty: 90 1RF furosemide 20 mg tablet 20 mg PO QAM Qty: 90 1RF insulin aspart U-100 [Novolog FlexPen U-100 Insulin] 100 unit/mL (3 mL) insulin pen See Rx Instructions SUBCUT TID Qty: 15 2RF Rx Instructions: sliding scale bid insulin glargine U-300 conc [Toujeo Max U-300 SoloStar] 300 unit/mL (3 mL) insulin pen See Rx Instructions .ROUTE .COMPLEX Qty: 18 1RF Rx Instructions: 15 AM 15 PM units subcutaneously If glucose low cut by 5 units levothyroxine 88 mcg tablet 88 mcg PO QAM Qty: 90 1RF lidocaine 5 % adhesive patch,medicated 1 patch topical [id number] Qty: 90 1RF simvastatin 20 mg tablet 20 mg PO BEDTIME Qty: 90 1RF benzonatate 100 mg capsule 100 mg PO TID PRN (Reason: cough) Qty: 45 0RF levofloxacin 750 mg tablet 750 mg PO DAILY Qty: 7 0RF diazepam [Valium] 2 mg tablet 2 mg PO TID PRN (Reason: muscle spasm) Qty: 90 5RF prednisone 10 mg tablet See Rx Instructions PO .COMPLEX PRN (Reason: joint pain) Qty: 30 1RF Rx Instructions: take 1 or 2 tab daily up to 7 days prn joint pain flare PO PRN; prednisone 5 mg tablet 5 mg PO DAILY Qty: 30 0RF prednisone 5 mg tablet 5 mg PO DAILY Qty: 90 1RF (DME) Power chair repair See Rx Instructions .Route .MEDSUPPLY Qty: 1 0RF Rx Instructions: Repair power chair and maintenance (DME) FreeStyle William 2 Mountainair Misc See Rx Instructions .ROUTE .MEDSUPPLY Qty: 1 0RF Rx Instructions: As directed (DME) FreeStyle William 2 Sensor Kit See Rx Instructions .ROUTE .MEDSUPPLY Qty: 7 11RF Rx Instructions: change every 14 days aspirin 81 mg tablet,delayed release (DR/EC) 81 mg PO QAM Cranberry Plus Vitamin C 140-100 mg Capsule 1 cap PO QAM tolterodine 2 mg Tablet 2 mg PO QAM cascara sagrada 500 mg Capsule 500 mg PO BEDTIME PRN (Reason: Constipation) omeprazole 20 mg Capsule,Delayed Release(Dr/Ec) 20 mg PO BID Vitamin D3 125 mcg (5,000 unit) Tablet 5,000 unit PO QAM Thc Capsule 20mg 1 cap PO QPM Discharge Orders: Discharge ED (Routine); Ordered 08/21/24 Ordered By: Sp Gallardo Referrals: Adam Anguiano, LITERACY TUTOR-C [Primary Care Provider] - Patient Instructions: Chronic Lymphocytic Leukemia (DC) Activity Restrictions/Additional Instructions: Please call Dr. Padron's office in the morning to schedule close follow-up appointment . Avoid any excessive trauma to avoid bruising. Continue taking your home medications. Please return with any new or concerning symptoms, specifically if you start having any visual changes. Print Language: Bahraini Coding Level of Care Code ED Cardiac Monitor for Kina Jackson
[2024-08-21 14:34] LABS: Basophils # 0.1 10^3/uL (0.0-0.1); Basophils % 0.3 %; Eosinophils # 0.2 10^3/uL (0.0-0.8); Eosinophils % 0.4 %; Hematocrit 34.7 % (36-47); Lymphocytes # 44.8 10^3/uL (0.8-4.8); Lymphocytes % 87.9 %; Mean Corpuscular HGB Conc 32.3 g/dL (30-55); Mean Corpuscular Hemoglobin 30.9 pg (27-33); Mean Corpuscular Volume 95.6 fl (85-98); Mean Platelet Volume 8.9 fL (7.4-10.4); Monocytes # 3.5 10^3/uL (0.2-0.9); Monocytes % 6.9 %; Neutrophils # 2.17 10^3/uL (1.8-7.7); Neutrophils % 4.1 %; Nucleated Red Blood Cells % 0.1 %; Platelet Count 99 10^3/cmm (157-399); Red Blood Count 3.63 10^6/uL (3.85-5.65); Red Cell Distribution Width 14.8 % (12.1-15.1)
[2024-08-21 14:47] LABS: Alanine Aminotransferase 8 U/L (0-33); Albumin Level 4.3 g/dL (3.5-5.2); Alkaline Phosphatase 71 U/L (35-105); Anion Gap 15.9 (5-19); Aspartate Amino Transferase 23 U/L (0-32); Blood Urea Nitrogen 13 mg/dL (8-23); Calcium 9.5 mg/dL (8.5-10.5); Carbon Dioxide 27 mmol/L (22-29); Chloride 102 mmol/L (98-107); Creatinine Clr Calc Pharmacy 48.6505; Globulin 2.3 g/dL (1.3-4.6); Glucose 117 mg/dL (65-115); Osmolality Calculated 293 mOsm/kg (285-295); Potassium 3.9 mmol/L (3.5-5.1); Sodium 141 mmol/L (136-145); Total Bilirubin 0.5 mg/dL (0.15-1.2); Total Protein 6.6 g/dL (6.6-8.7)
[2024-08-21 15:09] LABS: White Blood Count 50.96 10^3/uL (3.29-11.43)
[2024-08-21 15:10] LABS: Slide Review Slide Review Perform
[2024-08-21 15:11] LABS: INR 1.01 (0.8-1.2)
[2024-08-21 15:30] VITALS: BP 136/56; PULSE 69; O2SAT 98
[2024-08-21 16:30] VITALS: BP 130/62; PULSE 71; O2SAT 96
[2024-08-21 17:01] VITALS: BP 121/57; PULSE 69; O2SAT 97
[2024-08-21 17:30] VITALS: BP 121/75; PULSE 69; O2SAT 96
[2024-08-21 17:32] LABS: Partial Thromboplastin Time 30.2 SECONDS (23.9-36.7)
[2024-08-21 17:58] VITALS: BP 129/87; PULSE 67; O2SAT 97
== END 2024-08-21 17:58 | disposition home or self-care (01) ==
PROVIDERS: Emergency Medicine; Emergency Provider Physician Assistant; PCP Nurse Practitioner
DX: T14.8XXA Other injury of unspecified body region, initial encounter (principal); C91.10 Chronic lymphocytic leukemia of B-cell type not having achieved remission; G43.909 Migraine, unspecified, not intractable, without status migrainosus; Z79.4 Long term (current) use of insulin; Z79.82 Long term (current) use of aspirin; Z87.891 Personal history of nicotine dependence; Z95.0 Presence of cardiac pacemaker; J44.9 Chronic obstructive pulmonary disease, unspecified; E11.9 Type 2 diabetes mellitus without complications; Z51.11 Encounter for antineoplastic chemotherapy
CPT/HCPCS: 36415; 70450; 80053; 85025; 85610; 85730; 99284

== ENCOUNTER 2024-08-29 11:39 | Oncology outpatient (recurring) (ONCR) | payer MEDICARE, OTHER, SELFPAY ==
--- NOTE | 2024-08-29 12:39 | XR_ITS ---
WS: [id number] Exam: XR chest 2V* [id number] Date/Time of Exam: 08/29/2024 12:52 PM Reason For Exam: viral upper respiratory illness Comparison 09/04/2023. Lungs are fully expanded. Normal cardiomediastinal silhouette. Mild plaque atelectasis in the lingula. No pleural effusions. Previously described nodular density in the RIGHT lung base not seen on today's exam. Permanent cardiac pacer superimposes the LEFT chest. Chronic mild hyperlucency of the LEFT lung as compared to the RIGHT. Bony structures are intact. XR/XR chest 2V* [id number] IMPRESSION: 1. Mild plaque atelectasis in the lingula. No acute cardiopulmonary finding.
[2024-08-29 12:48] LABS: Reticulocyte % 3.3 % (0.5-2.0)
[2024-08-29 12:49] LABS: Hematocrit 35.5 % (36-47); Mean Corpuscular HGB Conc 31.5 g/dL (30-55); Mean Corpuscular Hemoglobin 29.7 pg (27-33); Mean Corpuscular Volume 94.2 fl (85-98); Mean Platelet Volume 8.8 fL (7.4-10.4); Platelet Count 107 10^3/cmm (157-399); Red Blood Count 3.77 10^6/uL (3.85-5.65); Red Cell Distribution Width 15.3 % (12.1-15.1)
[2024-08-29 12:57] LABS: Erythrocyte Sedimentation Rate 4 mm/hr (0-15)
[2024-08-29 13:02] LABS: INR 0.92 (0.8-1.2); Partial Thromboplastin Time 30.8 SECONDS (23.9-36.7)
[2024-08-29 13:10] LABS: Alanine Aminotransferase 12 U/L (0-33); Albumin Level 4.5 g/dL (3.5-5.2); Alkaline Phosphatase 82 U/L (35-105); Anion Gap 14.9 (5-19); Aspartate Amino Transferase 25 U/L (0-32); Blood Urea Nitrogen 13 mg/dL (8-23); C Reactive Protein 8.5 mg/L (0.0-4.9); Calcium 8.9 mg/dL (8.5-10.5); Carbon Dioxide 28 mmol/L (22-29); Chloride 107 mmol/L (98-107); Creatinine Clr Calc Pharmacy 48.9611; Ferritin 248 ng/mL (15-150); Globulin 2.2 g/dL (1.3-4.6); Glucose 80 mg/dL (65-115); Iron 50 ug/dL (37-145); Lactate Dehydrogenase 446 U/L (135-214); Osmolality Calculated 301 mOsm/kg (285-295); Percent Saturation 16.9 % (20-50); Potassium 3.9 mmol/L (3.5-5.1); Sodium 146 mmol/L (136-145); Total Bilirubin 0.5 mg/dL (0.15-1.2); Total Iron Binding Capacity 295 mcg/dl; Total Protein 6.7 g/dL (6.6-8.7); Unsaturated Iron Binding 245 ug/dL (112-347); Uric Acid 5.3 mg/dL (2.4-5.7)
[2024-08-29 13:20] LABS: Immunoglobulin IGA 63 mg/dL (70-400); Immunoglobulin IGG 526 mg/dL (700-1600); Immunoglobulin IGM 25 mg/dL (40-230)
[2024-08-29 13:24] LABS: Vitamin B12 367 pg/mL (232-1245)
[2024-08-29 13:25] LABS: Slide Review Slide Review Perform; White Blood Count 54.71 10^3/uL (3.29-11.43)
[2024-08-29 13:26] LABS: Absolute Segmented Neutrophil 1.6 10/cmm (1.6-7.1); Eosinophils 0 %; Lymphocytes 71 %; Lymphocytes Absolute 49.2 10^3/cmm (1.2-3.4); Monocytes Absolute 3.3 10^3/cmm (0.1-0.6); Segmented Neutrophils 3 %; Total Cells Counted 100 (0-100)
[2024-08-29 13:31] LABS: Folate Level 11.9 ng/mL (4.8-37.3)
[2024-08-29 13:35] LABS: Blastocytes 1 % (0-0)
[2024-08-29 13:36] LABS: Absolute Neutrophil 1.6 10^3/cmm (1.4-6.5); Macrocytosis Trace; Platelet Estimate Decreased (Normal); Polychromasia Trace; Smudge Cells 1+
[2024-08-30 06:55] LABS: PROTEIN, TOTAL 6.8 g/dL (6.1-8.1)
[2024-08-30 20:49] LABS: ALBUMIN 4.4 g/dL (3.8-4.8); ALPHA 1 GLOBULIN 0.4 g/dL (0.2-0.3); ALPHA 2 GLOBULIN 0.8 g/dL (0.5-0.9); BETA 1 GLOBULIN 0.4 g/dL (0.4-0.6); BETA 2 GLOBULIN 0.3 g/dL (0.2-0.5); GAMMA GLOBULIN 0.5 g/dL (0.8-1.7)
== END 2024-09-06 23:59 | disposition home or self-care (01) ==
PROVIDERS: PCP Nurse Practitioner; Visit Provider Internal Medicine
DX: C91.10 Chronic lymphocytic leukemia of B-cell type not having achieved remission (principal); G70.00 Myasthenia gravis without (acute) exacerbation; J20.9 Acute bronchitis, unspecified; E11.65 Type 2 diabetes mellitus with hyperglycemia; Z79.4 Long term (current) use of insulin; I63.9 Cerebral infarction, unspecified; J98.11 Atelectasis; T14.8XXA Other injury of unspecified body region, initial encounter; X58.XXXA Exposure to other specified factors, initial encounter; R61 Generalized hyperhidrosis; Z87.891 Personal history of nicotine dependence
CPT/HCPCS: 36415; 71046; 80053; 82607; 82728; 82746; 82784; 83010; 83540; 83550; 83615; 84155; 84165; 84550; 85007; 85025; 85045; 85610; 85651; 85730; 86140; 99213

== ENCOUNTER → 2024-09-03 10:07 | Outpatient (BNVA) | payer MEDICARE, OTHER, SELFPAY | PROVIDERS: PCP Nurse Practitioner; Visit Provider Podiatrist Foot & Ankle Surgery | DX: E11.65 Type 2 diabetes mellitus with hyperglycemia (principal); L60.3 Nail dystrophy; Z79.4 Long term (current) use of insulin | CPT/HCPCS: 11721 ==

== ENCOUNTER → 2024-09-23 14:18 | Outpatient (BNVA) | payer MEDICARE, OTHER, SELFPAY | PROVIDERS: PCP Nurse Practitioner; Visit Provider Internal Medicine Cardiovascular Disease | DX: I25.118 Atherosclerotic heart disease of native coronary artery with other forms of angina pectoris (principal); E78.2 Mixed hyperlipidemia; I10 Essential (primary) hypertension; Z95.0 Presence of cardiac pacemaker; C91.10 Chronic lymphocytic leukemia of B-cell type not having achieved remission | CPT/HCPCS: 99214 ==

== ENCOUNTER 2024-09-25 21:38 | Emergency (ER) | payer MEDICARE, OTHER, SELFPAY ==
[2024-09-25 21:39] VITALS: BP 128/66; PULSE 76; RESP 21; TEMP 36.4; O2SAT 92; BMI 24.0
--- NOTE | 2024-09-25 21:57 | XRR_ITS ---
PROCEDURE INFORMATION: Exam: XR Chest Exam date and time: 09/25/2024 10:19 PM Age: 84 years old Clinical indication: Chest wall pain; Additional info: Chest pain TECHNIQUE: Imaging protocol: Radiologic exam of the chest. Views: 1 view. COMPARISON: CR XR chest 2V* [id number] 08/29/2024 12:42 PM FINDINGS: Tubes, catheters and devices: Intact dual lead left subclavian pacemaker. Electronic device projects over the lower chest. Lungs: Calcified granuloma in the right upper lobe. Stable scar in the left upper lobe. The lungs are otherwise clear. Pleural spaces: Unremarkable. No pleural effusion. No pneumothorax. Heart/Mediastinum: Unremarkable. No cardiomegaly. Bones/joints: Thoracic curvature. No fracture. XR/XR chest 1V portable [id number] IMPRESSION: No acute findings.
--- NOTE | 2024-09-25 21:57 | ECG_ITS ---
[facility] Test Date: 2024-09-25 Pat Name: Felicitas Augustine Department: Room: Gender: Female Quality Internship: : 1940 Requested By: Valerio Sexton Order Number: [id number] Karma MD: Aimee Ramos M.D. Measurements Intervals [place] Rate: 81 P: 109 CA: 179 QRS: -81 QRSD: 100 T: 90 QT: 391 QTc: 455 Interpretive Statements ELECTRONIC ATRIAL PACEMAKER with occasional PVCs LEFT AXIS DEVIATION [QRS AXIS < -30] LOW QRS VOLTAGE IN PRECORDIAL LEADS [QRS DEFLECTION < 1.0 mV IN CHEST LEADS] PATTERN CONSISTENT WITH PULMONARY DISEASE MINIMAL ST DEPRESSION [0.025+ mV ST DEPRESSION] Compared to ECG 09/04/2023 20:06:28 Ventricular premature complex(es) no longer present ST (T wave) deviation still present Electronically Signed On 09-25-2024 22:10:26 CDT by Aimee Ramos M.D. [email or web address]
[2024-09-25 22:06] VITALS: BP 115/56; PULSE 64; RESP 20; O2SAT 95
[2024-09-25 22:10] LABS: Hematocrit 30.9 % (36-47); Mean Corpuscular Hemoglobin 31.9 pg (27-33); Mean Corpuscular Volume 96.6 fl (85-98); Mean Platelet Volume 9.1 fL (7.4-10.4); Platelet Count 91 10^3/cmm (157-399); Red Cell Distribution Width 16.3 % (12.1-15.1)
[2024-09-25 22:15] VITALS: RESP 18; O2SAT 94
[2024-09-25] MEDS: morphine 4 mg/mL SDV 1 mL 2 MG IVP (22:15)
[2024-09-25] MEDS: ondansetron 2 mg/ML SDV 2 mL 4 MG IVP (22:15)
[2024-09-25] MEDS: aspirin 81 mg Chew Tablet 324 MG PO (22:15)
[2024-09-25 22:39] LABS: Alanine Aminotransferase 10 U/L (0-33); Albumin Level 4.2 g/dL (3.5-5.2); Alkaline Phosphatase 70 U/L (35-105); Anion Gap 15.7 (5-19); Aspartate Amino Transferase 23 U/L (0-32); Blood Urea Nitrogen 15 mg/dL (8-23); Calcium 9.2 mg/dL (8.5-10.5); Carbon Dioxide 26 mmol/L (22-29); Chloride 101 mmol/L (98-107); Creatinine Clr Calc Pharmacy 49.8317; Globulin 2.3 g/dL (1.3-4.6); Glucose 170 mg/dL (65-115); NT Pro B Type Natriuretic Pept 311 pg/mL (0-450); Osmolality Calculated 293 mOsm/kg (285-295); Potassium 3.7 mmol/L (3.5-5.1); Sodium 139 mmol/L (136-145); Total Bilirubin 0.4 mg/dL (0.15-1.2); Total Protein 6.5 g/dL (6.6-8.7)
[2024-09-25 22:48] LABS: Slide Review Slide Review Perform
[2024-09-25 22:49] LABS: Absolute Segmented Neutrophil 1.4 10/cmm (1.6-7.1); Segmented Neutrophils 3 %; Total Cells Counted 100 (0-100)
[2024-09-25 22:50] LABS: Absolute Eosinophils 0.5 10^3/cmm (0.0-0.7); Eosinophils 1 %; Lymphocytes 75 %; Lymphocytes Absolute 43.1 10^3/cmm (1.2-3.4); Monocytes Absolute 1.4 10^3/cmm (0.1-0.6); Platelet Estimate Decreased (Normal); Smudge Cells Trace
[2024-09-25 22:54] LABS: Troponin(5th) Baseline 11 ng/L (0-10); White Blood Count 46.35 10^3/uL (3.29-11.43)
[2024-09-25 23:21] VITALS: BP 145/53; PULSE 62; RESP 22; O2SAT 92
--- NOTE | 2024-09-25 23:50 | ECG_ITS ---
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 Measurements Intervals [place] Rate: 63 P: 109 KS: 188 QRS: -70 QRSD: 112 T: 89 QT: 437 QTc: 448 Interpretive Statements ELECTRONIC ATRIAL PACEMAKER LEFT AXIS DEVIATION [QRS AXIS < -30] LOW QRS VOLTAGE IN PRECORDIAL LEADS [QRS DEFLECTION < 1.0 mV IN CHEST LEADS] PATTERN CONSISTENT WITH PULMONARY DISEASE MODERATE INTRAVENTRICULAR CONDUCTION DELAY [110+ ms QRS DURATION] Compared to ECG 09/25/2024 21:43:18 Intraventricular conduction delay now present Ventricular premature complex(es) no longer present ST (T wave) deviation no longer present Electronically Signed On 09-28-2024 07:49:26 CDT by Colby Coello M.D. [email or web address]
[2024-09-26 00:09] LABS: Troponin 5 2HR 10.52 ng/L (0-10)
[2024-09-26 00:11] LABS: Troponin 5 2HR Delta -0.48 ABS# (0-10)
[2024-09-26 00:30] VITALS: BP 157/69; PULSE 60; RESP 17; O2SAT 98
[2024-09-26] MEDS: pantoprazole DR 40 mg Tablet PO (01:10)
[2024-09-26 01:13] VITALS: BP 179/90; PULSE 65; RESP 23; O2SAT 97
--- NOTE | 2024-09-26 02:37 | W.ED.CHESTPA ---
HPI - Chest Pain General: Chief Complaint: Chest Pain Stated Complaint: cp Time Seen by Provider: 09/25/24 21:41 History of Present Illness: This patient is an 84-year-old white female who presents to the emergency department with chest pain. Patient states this came on at 7 PM. She did take 3 nitroglycerin tablets at home which helped. She states she was diaphoretic. She does have chronic shortness of breath secondary to COPD. She has had some nausea. Currently chest pain is to a scale of 1-10. Her past medical history includes a pacemaker and CLL. No history of coronary artery disease. Associated symptoms: Reports dyspnea and nausea Related Data Home Medications ?Medication ?Instructions ?Recorded ?Confirmed aspirin 81 mg tablet,delayed 81 mg PO QAM 08/09/23 09/23/24 release cascara sagrada 500 mg capsule 500 mg PO BEDTIME PRN Constipation 09/05/23 09/23/24 cholecalciferol (vitamin D3) 125 5,000 unit PO QAM 09/05/23 09/23/24 mcg (5,000 unit) tablet (Vitamin D3) cranberry concentrate-ascorbic 1 cap PO QAM 09/05/23 09/23/24 acid 140 mg-100 mg capsule (Cranberry Plus Vitamin C) omeprazole 20 mg capsule,delayed 20 mg PO BID 09/05/23 09/23/24 release tolterodine 2 mg tablet 2 mg PO QAM 09/05/23 09/23/24 Previous Rx's ?Medication ?Instructions ?Recorded Power chair repair #1 ea 09/27/22 albuterol sulfate 2.5 mg/3 mL 2.5 mg (3 mL) inhalation QID PRN 02/23/23 (0.083 %) solution for nebulization shortness of breath or wheezing #360 mL diazepam 2 mg tablet (Valium) 2 mg PO TID PRN muscle spasm #90 03/05/24 tabs flash glucose scanning reader #1 ea 04/08/24 (FreeStyle William 2 [place]) [id number] Power Chair with lift #1 ea 04/21/24 Roho Wheelchair Coushion [id number] #1 ea 04/21/24 albuterol sulfate 90 mcg/actuation 2 puff inhalation QID PRN 04/21/24 aerosol inhaler Shortness Of Breath #6.7 grams budesonide 160 mcg-glycopyr 9 2 inh inhalation BID PRN Shortness 04/21/24 mcg-formot 4.8 mcg/actuation HFA Of Breath #10.7 grams inhaler (Breztri Aerosphere) cyclobenzaprine 10 mg tablet 10 mg PO .at bedtime #90 tabs 04/21/24 furosemide 20 mg tablet 20 mg PO QAM #90 tabs 04/21/24 insulin aspart U-100 100 unit/mL See Rx Instructions SUBCUT TID #15 04/21/24 (3 mL) subcutaneous pen (Novolog mL FlexPen U-100 Insulin aspart) insulin glargine U-300 conc 300 See Rx Instructions .Route 04/21/24 unit/mL (3 mL) subcutaneous pen .COMPLEX #18 mL (Toujeo Max U-300 SoloStar) levothyroxine 88 mcg tablet 88 mcg PO QAM #90 tabs 04/21/24 lidocaine 5 % topical patch 1 patch topical [id number] #90 ea 04/21/24 simvastatin 20 mg tablet 20 mg PO BEDTIME #90 tabs 04/21/24 prednisone 10 mg tablet See Rx Instructions PO .COMPLEX 06/03/24 PRN joint pain #30 tabs benzonatate 100 mg capsule 100 mg PO TID PRN cough #45 caps 07/26/24 levofloxacin 750 mg tablet 750 mg PO DAILY #7 tabs 07/26/24 flash glucose sensor (FreeStyle #7 ea 08/09/24 William 2 Sensor kit) amoxicillin 500 mg-potassium 1 tab PO BID 7 days #14 tabs 08/29/24 clavulanate 125 mg tablet (Augmentin) nitroglycerin 0.4 mg sublingual 0.4 mg sublingual Q5M PRN chest 09/23/24 tablet pain 30 days #30 tabs omeprazole 20 mg capsule,delayed 20 mg PO DAILY #30 caps 09/26/24 release Allergies Allergy/AdvReac Type Severity Reaction Status Date / Time pneumococcal vaccine Allergy ALGY-Rash Verified 09/23/24 14:24 Sulfa (Sulfonamide Allergy RASH Verified 09/23/24 14:24 Antibiotics) Review of Systems General: Reports: 10 or more systems reviewed and unremarkable except in HPI and below Card: Reports: chest pain Resp: Reports: dyspnea GI: Reports: nausea PFSH ED PFSH: Medical History High risk medication use Seropositive rheumatoid arthritis of multiple sites Generalized weakness Atherosclerosis of [place] coronary artery without angina pectoris Chronic lymphocytic leukemia Urolithiasis Left ureteral calculus Myasthenia gravis UTI (urinary tract infection) Diabetes mellitus with hyperglycemia, with long-term current use of insulin Environmental and seasonal allergies Essential hypertension, benign Pneumonia Hyperlipidemia Vitamin D deficiency Vitamin B 12 deficiency COPD (chronic obstructive pulmonary disease) Depression with anxiety Hypothyroidism Neuropathy Surgical History History of basal cell carcinoma (BCC) excision History of hysterectomy with bilateral oophorectomy For cervical cancer History of appendectomy History of colonoscopy with polypectomy (11/17/21) Pacemaker 04/05/2019 H/O thyroidectomy Total thyroidectomy followed by radioactive iodine ablation for thyroid cancer H/O reduction of closed fracture left wrist 10/23/2015 Hx of cholecystectomy H/O brain surgery Craniotomy x 4 for meningioma H/O esophagogastroduodenoscopy (11/17/21) 2013 Family History Mother , AT 92 Anesthesia complication CAD (coronary artery disease) Cancer Dementia Stroke Brother CAD (coronary artery disease) Cancer Suicide Sister CAD (coronary artery disease) Suicide Grandmother Cancer Dementia Stroke Family/Other Cancer Dementia Stroke Brother Suicide Brother Suicide Father , IN HIS 60'S Alcoholic Liver disease Denies family history of Diabetes Clotting disorder Chronic kidney disease (CKD) Bleeding disorder Lung disease Social History Smoking and tobacco/nicotine status: former use of tobacco/nicotine Quit status (tobacco/nicotine): has quit using Year quit tobacco: 1997 Former quit date comment: 1 ppd X 45 years Second hand smoke exposure: No Alcohol intake: unknown Substance/Drug Use: unknown Adopted: No Caregiver/support person: Yes Lives independently: No Household members: family Housing: House Marital status: / Number of children: 2 service: No Current occupational status: retired Current occupational exposures/hazards: No Do you think of yourself as: Straight/Heterosexual Physical Exam Const: COMMON NORMALS: no acute distress, patient oriented x3 and no limitations GENERAL APPEARANCE: cooperative and comfortable HENMT: COMMON NORMALS: normocephalic, atraumatic, Normal nasal mucous membranes and turbinates present, moist oral mucous membranes and oropharynx normal HEAD & SCALP: normal to inspection, normocephalic and atraumatic FACE & SINUS: normal facial exam NOSE: Normal nasal mucous membranes and turbinates present Eye: COMMON NORMALS: Equal, round and reactive pupils present, EOMs intact bilaterally and conjunctivae normal GENERAL EYE: appearance normal, both eyes and all related structures CONJUNCTIVA: Yes conjunctivae normal PUPIL: Yes Equal, round and reactive pupils present Neck/C-Spine: COMMON NORMALS: supple and no JVD Chest: COMMONS NORMALS: normal inspection of the chest Resp: COMMON NORMALS: normal respiratory effort and clear to auscultation bilaterally AUSCULTATION: clear to auscultation bilaterally Cardio: COMMON NORMALS: no JVD, regular rate, regular rhythm, No gallops present (Cardio), No murmurs present (Cardio) and No rub (Cardio) RATE: regular rate RHYTHM: regular rhythm GI: COMMON NORMALS: Normal to inspection, nondistended, normoactive bowel sounds present, Soft to palpation and non-tender AUSCULTATION: Yes normoactive bowel sounds PALPATION: Yes Soft to palpation : COMMON NORMALS: Yes no CVA tenderness BLADDER/KIDNEY EXAM: Yes no CVA tenderness Back/Pelvis: COMMON NORMALS: no CVA tenderness and thoracic and lumbar spine normal to inspection Extremity: COMMON NORMALS: normal to inspection Neuro: COMMON NORMALS: patient oriented x3 and CN's II-XII intact bilaterally Psych: COMMON NORMALS: mental status grossly normal, Normal thought process present and cooperative THOUGHT PROCESS: Normal thought process present Skin: COMMON NORMALS: no rashes or lesions noted, turgor normal and no jaundice GENERAL SKIN EXAM: no rashes or lesions noted and turgor normal Course Vital Signs: Vital signs: Vital Signs Temperature 97.6 F 09/25/24 21:39 Pulse Rate 65 09/26/24 01:13 Respiratory Rate 23 H 09/26/24 01:13 Blood Pressure 179/90 09/26/24 01:13 Pulse Oximetry 97 09/26/24 01:13 Oxygen Delivery Me thod Room Air 09/26/24 00:30 Oxygen Flow Rate 2 09/25/24 23:21 MDM - Chest Pain Medical Decision Making EKG revealed an atrial paced rhythm. No ST segment abnormalities. Chest x-ray was normal. CBC revealed a white blood cell count of 46.4. CMP was normal. BNP was 311. Baseline troponin was 11 with a 2-hour level of 10. She was given 2 mg of morphine and 4 mg of Zofran. This did relieve the chest discomfort. She remained asymptomatic. She was subsequently discharged in stable condition. I did place her on Prilosec and she was also given 40 mg of Protonix p.o. in the emergency department. Recommended she follow-up with her primary care physician within the next several days for recheck. Lab Data 09/25/24 22:04 09/25/24 22:04 Radiology Impressions Chest X-Ray 09/25/24 21:57 IMPRESSION: No acute findings. Laboratory Results WBC 46.35 10^3/uL (3.29-11.43) H* 09/25/24 22:04 RBC 3.20 10^6/uL (3.85-5.65) L 09/25/24 22:04 Hgb 10.20 g/dL (11.27-16.99) L 09/25/24 22:04 Hct 30.9 % (36-47) L 09/25/24 22:04 MCV 96.6 fl (85-98) 09/25/24 22:04 MCH 31.9 pg (27-33) 09/25/24 22:04 MCHC 33.0 g/dL (30-55) 09/25/24 22:04 RDW 16.3 % (12.1-15.1) H 09/25/24 22:04 Plt Count 91 10^3/cmm (157-399) L 09/25/24 22:04 MPV 9.1 fL (7.4-10.4) 09/25/24 22:04 Lymph % (Auto) Not Reportable 09/25/24 22:04 [place] % (Auto) Not Reportable 09/25/24 22:04 Lymph # (Auto) Not Reportable 09/25/24 22:04 [place] # (Auto) Not Reportable 09/25/24 22:04 Total Counted 100 (0-100) 09/25/24 22:04 Atypical Lymphs % 18.0 % (0-5) H 09/25/24 22:04 Segmented Neutrophils 3 % 09/25/24 22:04 Band Neutrophils Not Reportable 09/25/24 22:04 Absolute Lymphocytes 43.1 10^3/cmm (1.2-3.4) H 09/25/24 22:04 Lymphocytes (Manual) 75 % 09/25/24 22:04 Monocytes (Manual) 3.0 % 09/25/24 22:04 Absolute Monocytes 1.4 10^3/cmm (0.1-0.6) H 09/25/24 22:04 Eosinophils (Manual) 1 % 09/25/24 22:04 Absolute Eosinophils 0.5 10^3/cmm (0.0-0.7) 09/25/24 22:04 Basophils (Manual) 0.0 % 09/25/24 22:04 Absolute Basophils 0.0 10^3/cmm (0.0-0.2) 09/25/24 22:04 Smudge Cells Trace 09/25/24 22:04 Platelet Estimate Decreased (Normal) L 09/25/24 22:04 Sodium 139 mmol/L (136-145) 09/25/24 22:04 Potassium 3.7 mmol/L (3.5-5.1) 09/25/24 22:04 Chloride 101 mmol/L (98-107) 09/25/24 22:04 Carbon Dioxide 26 mmol/L (22-29) 09/25/24 22:04 Anion Gap 15.7 (5-19) 09/25/24 22:04 BUN 15 mg/dL (8-23) 09/25/24 22:04 Creatinine 0.7 mg/dL (0.5-0.9) 09/25/24 22:04 GFR Calculation Not Reportable 09/25/24 22:04 Glucose 170 mg/dL (65-115) H 09/25/24 22:04 Calculated Osmolality 293 mOsm/kg (285-295) 09/25/24 22:04 Calcium 9.2 mg/dL (8.5-10.5) 09/25/24 22:04 Total Bilirubin 0.4 mg/dL (0.15-1.2) 09/25/24 22:04 AST 23 U/L (0-32) 09/25/24 22:04 ALT 10 U/L (0-33) 09/25/24 22:04 Alkaline Phosphatase 70 U/L (35-105) 09/25/24 22:04 Troponin T Baseline 11 ng/L (0-10) H 09/25/24 22:04 Troponin T 120 Minute 10.52 ng/L (0-10) H 09/25/24 23:42 Delta Troponin T -0.48 ABS# (0-10) L 09/25/24 23:42 NT-Pro-B Natriuret Pep 311 pg/mL (0-450) 09/25/24 22:04 Total Protein 6.5 g/dL (6.6-8.7) L 09/25/24 22:04 Albumin 4.2 g/dL (3.5-5.2) 09/25/24 22:04 Globulin 2.3 g/dL (1.3-4.6) 09/25/24 22:04 All radiology interpretation(s) finalized by discharge Discharge Plan Discharge Patient Disposition: Home Clinical Impression: Chest pain Qualifiers: Chest pain type: unspecified Qualified Code(s): R07.9 - Chest pain, unspecified Prescriptions: New omeprazole 20 mg capsule,delayed release(DR/EC) 20 mg PO DAILY Qty: 30 0RF No Action albuterol sulfate 2.5 mg /3 mL (0.083 %) solution for nebulization 2.5 mg inhalation QID PRN (Reason: shortness of breath or wheezing) Qty: 360 3RF (DME) [facility] Wheelchair Coushion [id number] See Rx Instructions .Route .MEDSUPPLY Qty: 1 0RF Rx Instructions: use in wheelchair or powerchair (DME) E0627 Power Chair with lift See Rx Instructions .Route .MEDSUPPLY Qty: 1 0RF Rx Instructions: use daily for mobility 99 months albuterol sulfate 90 mcg/actuation HFA aerosol inhaler 2 puff INHALATION QID PRN (Reason: Shortness Of Breath) Qty: 6.7 1RF Breztri Aerosphere 160-9-4.8 mcg/actuation HFA aerosol inhaler 2 inh inhalation BID PRN (Reason: Shortness Of Breath) Qty: 10.7 1RF cyclobenzaprine 10 mg tablet 10 mg PO .at bedtime Qty: 90 1RF furosemide 20 mg tablet 20 mg PO QAM Qty: 90 1RF insulin aspart U-100 [Novolog FlexPen U-100 Insulin] 100 unit/mL (3 mL) insulin pen See Rx Instructions SUBCUT TID Qty: 15 2RF Rx Instructions: sliding scale bid insulin glargine U-300 conc [Toujeo Max U-300 SoloStar] 300 unit/mL (3 mL) insulin pen See Rx Instructions .ROUTE .COMPLEX Qty: 18 1RF Rx Instructions: 15 AM 15 PM units subcutaneously If glucose low cut by 5 units levothyroxine 88 mcg tablet 88 mcg PO QAM Qty: 90 1RF lidocaine 5 % adhesive patch,medicated 1 patch topical [id number] Qty: 90 1RF simvastatin 20 mg tablet 20 mg PO BEDTIME Qty: 90 1RF nitroglycerin 0.4 mg tablet, sublingual 0.4 mg sublingual Q5M PRN (Reason: chest pain) 30 Days Qty: 30 3RF Rx Instructions: until response; do not exceed 3 doses per episode amoxicillin-pot clavulanate [Augmentin] 500-125 mg tablet 1 tab PO BID 7 Days Qty: 14 0RF benzonatate 100 mg capsule 100 mg PO TID PRN (Reason: cough) Qty: 45 0RF levofloxacin 750 mg tablet 750 mg PO DAILY Qty: 7 0RF diazepam [Valium] 2 mg tablet 2 mg PO TID PRN (Reason: muscle spasm) Qty: 90 5RF prednisone 10 mg tablet See Rx Instructions PO .COMPLEX PRN (Reason: joint pain) Qty: 30 1RF Rx Instructions: take 1 or 2 tab daily up to 7 days prn joint pain flare PO PRN; (DME) Power chair repair See Rx Instructions .Route .MEDSUPPLY Qty: 1 0RF Rx Instructions: Repair power chair and maintenance (DME) FreeStyle William 2 [place] Misc See Rx Instructions .ROUTE .MEDSUPPLY Qty: 1 0RF Rx Instructions: As directed (DME) FreeStyle [place] 2 Sensor Kit See Rx Instructions .ROUTE .MEDSUPPLY Qty: 7 11RF Rx Instructions: change every 14 days aspirin 81 mg tablet,delayed release (DR/EC) 81 mg PO QAM Cranberry Plus Vitamin C 140-100 mg Capsule 1 cap PO QAM tolterodine 2 mg Tablet 2 mg PO QAM cascara sagrada 500 mg Capsule 500 mg PO BEDTIME PRN (Reason: Constipation) omeprazole 20 mg Capsule,Delayed Release(Dr/Ec) 20 mg PO BID Vitamin D3 125 mcg (5,000 unit) Tablet 5,000 unit PO QAM Discharge Orders: Discharge ED (Routine); Ordered 09/26/24 Ordered By: Valerio Sexton Referrals: Adam Anguiano, [facility] [Primary Care Provider] - Patient Instructions: Chest Pain (DC) Activity Restrictions/Additional Instructions: Follow-up with your primary care provider as soon as possible for recheck. Print Language: Kazakh Coding Level of Care Code ED General Dentist/Owner for Kina Jackson
== END 2024-09-26 01:06 | disposition home or self-care (01) ==
PROVIDERS: Emergency Provider Emergency Medicine; PCP Nurse Practitioner
DX: R07.9 Chest pain, unspecified (principal); Z79.4 Long term (current) use of insulin; Z79.82 Long term (current) use of aspirin; Z87.891 Personal history of nicotine dependence; J44.9 Chronic obstructive pulmonary disease, unspecified; I25.10 Atherosclerotic heart disease of native coronary artery without angina pectoris; E78.5 Hyperlipidemia, unspecified; E11.40 Type 2 diabetes mellitus with diabetic neuropathy, unspecified; I10 Essential (primary) hypertension; Z95.0 Presence of cardiac pacemaker; Z85.41 Personal history of malignant neoplasm of cervix uteri
CPT/HCPCS: 71045; 80053; 83880; 84484; 85007; 85025; 93005; 96374; 96375; 99285; J2270; J2405; J9999

== ENCOUNTER 2024-09-26 13:28 | Oncology outpatient (recurring) (ONCR) | payer MEDICARE, OTHER, SELFPAY | END 2024-10-07 23:59 | disposition home or self-care (01) | PROVIDERS: PCP Nurse Practitioner; Visit Provider Internal Medicine | DX: C91.10 Chronic lymphocytic leukemia of B-cell type not having achieved remission (principal); Z87.891 Personal history of nicotine dependence; G70.00 Myasthenia gravis without (acute) exacerbation; R07.89 Other chest pain | CPT/HCPCS: 99213 ==

== ENCOUNTER → 2024-09-30 10:35 | Outpatient (BNVA) | payer MEDICARE, OTHER, SELFPAY | PROVIDERS: PCP Nurse Practitioner; Visit Provider Internal Medicine Rheumatology | DX: C91.10 Chronic lymphocytic leukemia of B-cell type not having achieved remission (principal); M05.79 Rheumatoid arthritis with rheumatoid factor of multiple sites without organ or systems involvement; Z79.899 Other long term (current) drug therapy | CPT/HCPCS: 99214 ==

== ENCOUNTER 2024-10-11 09:26 | Outpatient (CLI) | payer MEDICARE, OTHER, SELFPAY ==
--- NOTE | 2024-10-11 | ECG_ITS ---
[email or web address] Test Date: 2024-10-11 Pat Name: Felicitas Augustine Department: Room: Gender: Female [employer] Officer: : 1940 Requested By: Aimee Ramos Order Number: [id number] Karma MD: Aimee Ramos M.D. Interpretive Statements Lung unchanged pre/post procedure; Intraprocedure shortess of breath; Symptoms resoled by discharge PROCEDURE: At the baseline, the EKG revealed sinus rhythm with poor R wave progression. Low voltage complexes throughout. The baseline heart was 62 bpm with a blood pressue of 96/53 mm of Hg. Lexiscan was infused over a period of 20 seconds. A total of 0.4 milligrams of Lexiscan was infused. The stress phase was continued for a total of 5 minutes. Heart rate at the end of the stress phase was 70 bpm with a blood pressure 109/40 mm of Hg. The EKG at the peak infusion revealed no significant changes. Sestamibi was injected 20 seconds after the Lexiscan infusion. Heart rate at the end of the recovery phase was 70 bpm with a blood pressure of 102/43 mm of Hg. CONCLUSION: 1. No significant EKG changes with the LexiScan infusion 2. No LexiScan induced chest pain or cardiac arrhythmia 3. Normal blood pressure and heart rate response 4. Sestamibi/sestamibi perfusion scan pending; see separate report. Electronically Signed On 10-14-2024 08:40:38 CDT by Aimee Ramos M.D. [email or web address]
[2024-10-11 09:56] VITALS: BMI 24.7
--- NOTE | 2024-10-11 09:59 | NMCV_ITS ---
NM alvina perf SPECT r/s* [id number] Felicitas Augustine Age: 84 Gender: F : 1940 Exam Date: 10/11/2024 10:26 Ordering Phys: Aimee Ramos MD ([email or web address]) Technologist: HERNÁN Waters Exam [facility]: [facility] Indications: CP STRESS TEST [facility] IMAGE PROTOCOL Rest/Stress 1 Lexiscan Day Radiopharmaceutical Dose (mCi) Administration Site Administered by Rest: Tc-99m 10.8 IV HERNÁN Waters Sestamibi Stress:Tc-99m 32.8 IV HERNÁN Waters Sestamibi Rest: 11-Oct-2024 45 Discovery 630 Stress: 11-Oct-2024 30 Discovery 630 0.4mg Lexiscan. Supine position only as patient was unable to lay prone. SPECT RESULTS Technical Quality: Good Raw Data Analysis: Subdiaphragmatic activity Image Corrections: No attenuation or motion correction applied Summed Stress Score: 5 Summed Rest Score: 0 Summed Difference Score: 5 PERFUSION FINDINGS A small area of moderate decrease tracer uptake was noted in the apical inferior, apical lateral and LV apex. Significant reversibility was noted in this region FUNCTIONAL RESULTS (calculated via Gated SPECT) Stress Image LV EF (%): 76 Stress EDV (mL):58 TID: 0.97 Stress ESV (mL):14 FUNCTIONAL FINDINGS: Segmental wall motion analysis revealing no gross wall motion abnormalities IMPRESSIONS 1. Myocardial perfusion imaging revealing a small area of reversible defect involving the apical inferior, apical lateral and LV apex suggesting ischemia in the distribution of the left circumflex artery 2. Normal ejection fraction 76% 3. LV wall motion analysis revealing no gross wall motion abnormalities. 4. Normal LV volume No similar previous studies are available for comparison Dr Aimee Ramos MD [facility] (Electronically Signed) Final Date: 14 October 2024 21:36 S
[2024-10-11] MEDS: regadenoson 0.4 Mg/5 ml Syringe IVP (11:06)
[2024-10-11] MEDS: ondansetron 2 mg/ML SDV 2 mL 4 MG IVP (11:20)
[2024-10-11 11:25] VITALS: BP 102/43; PULSE 68
[2024-10-11 12:35] LABS: Glucose Point of Care 57 mg/dL (70-110)
== END 2024-10-11 09:27 | disposition home or self-care (01) ==
PROVIDERS: PCP Nurse Practitioner; Visit Provider Internal Medicine Cardiovascular Disease
DX: R07.9 Chest pain, unspecified (principal); R93.1 Abnormal findings on diagnostic imaging of heart and coronary circulation
CPT/HCPCS: 36415; 36416; 78452; 82962; 93017; 96374; 96375; A9500; J2405; J2785

== ENCOUNTER 2024-10-15 11:27 | Outpatient (CLI) | payer MEDICARE, OTHER, SELFPAY ==
[2024-10-15 12:07] LABS: Estmated Average Glucose 97
[2024-10-15 12:24] LABS: Alanine Aminotransferase 10 U/L (0-33); Albumin Level 4.6 g/dL (3.5-5.2); Alkaline Phosphatase 62 U/L (35-105); Anion Gap 14.7 (5-19); Aspartate Amino Transferase 18 U/L (0-32); Blood Urea Nitrogen 18 mg/dL (8-23); Calcium 9.1 mg/dL (8.5-10.5); Carbon Dioxide 27 mmol/L (22-29); Chloride 107 mmol/L (98-107); Chol HDL Ratio 3.43 mg/dL (0.0-4.40); Cholesterol 96 mg/dL (0-200); Globulin 2.2 g/dL (1.3-4.6); Glucose 71 mg/dL (65-115); HDL Cholesterol 28 mg/dL (60-100); LDL Cholesterol Calculated 35 mg/dL (50-129); Osmolality Calculated 300 mOsm/kg (285-295); Potassium 3.7 mmol/L (3.5-5.1); Sodium 145 mmol/L (136-145); Total Bilirubin 0.4 mg/dL (0.15-1.2); Total Protein 6.8 g/dL (6.6-8.7); Triglycerides 163 mg/dL (0-150); VLDL Cholestrol Calculation 33 mg/dL (0-30)
== END 2024-10-15 11:28 | disposition home or self-care (01) ==
PROVIDERS: PCP Nurse Practitioner; Visit Provider Nurse Practitioner
DX: E11.65 Type 2 diabetes mellitus with hyperglycemia (principal); Z79.4 Long term (current) use of insulin; E03.9 Hypothyroidism, unspecified
CPT/HCPCS: 36415; 80053; 80061; 83036; 84443

== ENCOUNTER → 2024-10-29 15:43 | Outpatient (BNVA) | payer OTHER, SELFPAY | PROVIDERS: PCP Nurse Practitioner; Visit Provider Internal Medicine Cardiovascular Disease | DX: I25.118 Atherosclerotic heart disease of native coronary artery with other forms of angina pectoris (principal); R94.39 Abnormal result of other cardiovascular function study; E78.2 Mixed hyperlipidemia; I10 Essential (primary) hypertension; Z95.0 Presence of cardiac pacemaker; C91.10 Chronic lymphocytic leukemia of B-cell type not having achieved remission | CPT/HCPCS: 99214 ==

== ENCOUNTER 2024-11-15 07:42 | Outpatient (CLI) | payer MEDICARE, OTHER, SELFPAY ==
[2024-11-15] VITALS (38 sets, daily range): BP systolic 128–168; BP diastolic 54–90; PULSE 60–92; RESP 17–26; TEMP 36.3–36.8; O2SAT 92–98; BMI 24.7
--- NOTE | 2024-11-15 07:30 | XACV_ITS ---
Exam Room: 2 Ht: 160 cm Wt: 64 kg BSA: 1.69 m2 Gender: Female : 1940 Any Known Allergies: Sulfa Exam Priority: Routine Procedure(s): Procedure Description: Diagnostic procedure Procedure Description: PCI procedure Procedure Description: Drug Eluting Coronary Stent Procedure Description: PTCA Procedure Description: Miscellaneous Procedure Description: ACT Procedure Description: Coronary Angiography Procedure Description: Pressure Wire Richard BROWN; Diagnostic Cath Status: Elective Diagnostic Findings * Left main is a medium caliber short vessel with no significant stenotic lesions. Mild to moderate calcification was noted of this vessel. * The left-sided descending artery is a medium caliber elongated vessel which appears to wraparound the LV apex. The proximal to mid LAD was found to have moderate to heavy calcification. There was around 40% diffuse tubular narrowing around the takeoff of the first diagonal branch. The mid LAD was found to have a tapering narrowing with around 60 to 70%. The distal area was found to have minimal diffuse intimal irregularities. The first 2 diagonal branch was found to have around 40% tubular narrowing proximally, involving the ostium. * The left circumflex artery is a medium to large caliber codominant vessel. The proximal segment of the artery was found to have a tubular narrowing of around 40% towards the origin of the large obtuse marginal branch. The proximal segment of the obtuse marginal artery was found to have another 30 to 40% tubular narrowing. Moderate diffuse calcification was noted in these areas. The obtuse marginal artery then bifurcates . The bifurcation branches were found to have minimal intimal irregularities. * The right coronary artery is a small to medium caliber codominant vessel which was found to have diffuse intimal irregularities in the proximal and mid segment. The artery appears to bifurcates to the terminal PDA and PLV branches. These branches are found to be tortuous and slender with minimal diffuse intimal irregularities. No significant aortic lesions were noted. PCI Status: Elective PCI Indication: Other Interventional Findings * Procedure detail: We engaged left main artery with XB 3.5 guide catheter. IV heparin was administered to maintain anticoagulation. iFR wire was advanced into left main artery and was normalized. It was advanced into distal circumflex artery. iFR value of 0.94 was obtained that was nonischemic. Medical therapy was decided. We then advanced the IFR wire into distal LAD. iFR value of 0.85 was obtained that was significantly abnormal. We decided to proceed with PCI. Guidewire was switched to run-through wire. We predilated the stenosis with 2.5 x 15 mm NC balloon. This was followed by placement of 2.75 x 30 mm resolute Spencer drug-eluting stent. We postdilated the stent with 3.0 x 20 mm NC balloon. At this time final angiogram was performed that showed excellent stent expansion, no residual stenosis and JAYLENE-3 flow. Guidewire and guide catheter were removed. Patient left the Relationship Mgr in a stable condition.. * Proximal Left Anterior Descendin% stenosis treated with a MDT NC EUPHORA RX [id number] BALLOON, MDT R SPENCER 2.75X30 DESTINI, and MDT NC EUPHORA RX [id number] BALLOON. 0% residual stenosis, JAYLENE: 3 flow. Conclusions 1. 84-year-old white female, with a history of coronary disease, presenting with increasing episodes of chest pains. Abnormal Myocardial perfusion imaging revealing reversible defect predominantly in the distribution of the left circumflex artery. In view of the ongoing symptoms, in order to further evaluate the coronary status, a cardiac catheterization was recommended. Patient underwent left heart catheterization with left and right coronary angiogram today. The findings are as follows. 2. No significant left main lesion. Mild to moderate calcification in the proximal left main. The left-sided ascending artery was found to have moderately severe diffuse disease in the proximal to mid segment. Moderate to heavy coronary calcification was noted in this area. Left circumflex artery was found to have around 40% diffuse narrowing in the proximal segment, extending into the proximal segment of the large first OM branch. The circumflex artery is a co-dominant vessel. Right coronary artery, small to medium caliber vessel, was found to have mild diffuse intimal irregularities. LVEDP of 9 mmHg. 3. I reviewed and discussed the cardiac catheterization data with the Dr. Coello. It is thought to be appropriate to consider IFR of the LAD lesion and then decide about PCI. This was discussed with the patient and family which they understood well and consented to proceed. Dr. Coello took over further management this patient at this point. The LAD lesion was found to be significant with an IFR of 0.85. Patient underwent PCI of this lesion. Please see details of this on the PCI report. 4. iFR of mid Left circumflex artery that is non-ischemic. 5. iFR of proximal to mid LAD is abnormal with value of 0.85. S/p PCI with 1 stent. 6. Proximal Left Anterior Descending was treated with a Balloon, Drug Eluting Stent, and Balloon. Recommendations * Dual antiplatelet therapy with aspirin and plavix. * High intensity statin therapy. * Outpatient cardiology follow up in 2 weeks. Interventional RX Recommendation: PCI w/o planned CABG Diagnostic RX Recommendation: other cardiac therapy w/o CABG/PCI Anticoagulation: Heparin LV EDP: 9 mmHg Left Ventriculography Findings: * LV gram was not performed because of the concern about dye overload. The LVEDP was 9 mmHg. Pressures Phase:Rest AO : 148 / 104 ( 95 ) @ 10:46:00 AM 135 / 46 ( 80 ) @ 10:53:00 AM 137 / 47 ( 73 ) @ 10:53:00 AM 106 / 36 ( 62 ) @ 11:11:00 AM 139 / 57 ( 93 ) @ 11:16:00 AM 138 / 66 ( 99 ) @ 11:24:00 AM LV : 139 / -15 / 9 @ 10:53:00 AM 139 / -12 / 10 @ 10:53:00 AM Valves Phase:DefaultPhase AV : 3.0 @ 10:42:24 AM AV Mean Gradient: 11.0 @ 10:42:24 AM Clinical Evaluation EBL: 5mL-10mL Procedural Details Procedure Consent Obtained. Pre-Procedure Time Out. Identified patient by full name and date of as verbalized by the patient/guarantor. Does the consent match the physician's order: Yes. Accurate & Complete Informed Consent: Yes. Inpatient/Outpatient History & Physical on Chart: Yes. If H&P is completed, is and addenduem needed: No. Visualize and Verify Site with Patient/Guarantor: N/A. Relevant Radiology Images available: Yes. The risks, benefits, and alternatives of sedation and/or procedure were discussed by physician. The patient agrees to continue. Procedure started. [facility] Clinical Fraility Score: 4: Vulnerable. Relationship Mgr Indications: Other; Abnormal stress test, ASHD. Chest Pain Symptom Assessment: Typical Angina Symptoms. Cardiovascular Instability: No. Correct patient, site and procedure confirmed by cath team. PERRLA. Strong, equal hand volunteer firefighter bilaterally. Lungs clear x 5 lobes. IV Site on Arrival: 20 gauge in the left anticubital. IV Fluids: 0.9% NaCl at KVO. 0 mL infused prior to electroplating laborer. Pre Procedural Pulses: bilateral dorsalis pedis was 2+. Pre Procedural Pulses: bilateral posterior tibial was 1+. Pre Procedural Pulses: bilateral radial was 3+. Oxygen started at 2liters/min via nasal canula. bilateral groins was prepped with chloroprep then draped in the usual sterile fashion. Physician notified. Patient's family in CPRU room #3. Dr. Ramos will update at the completion of the procedure. Equipment: 6F - Femoral. Cardiac Cath Pack. ACIST Manifold Kit Model BT 2000. Heparinized Saline (2 units/mL), 1000 mL bag. Kit, Micropuncture. Physician arrived. Physician scrubbed in. Immediate Pre-Procedure Time Out. Correct Patient: Yes; Correct Procedure: Yes; Correct Site: Yes; Correct Patient Position: Yes; Correct Supplies: Yes; Dried Flammable Prep: Yes; Blood Products Available: N/A;. Lidocaine 1% infiltrated to the right groin. Arterial access obtained with micropuncture set. A 5 palestinian JL4 catheter in over the standard J wire. Multiple views taken of left coronary artery. Catheter removed over the standard J wire. A 5 palestinian JR4 catheter in over the standard J wire. EDP Sample taken: LV 139/-16,9; HR: 60 BPM; SpO2: 98%. Pullback taken: LV 139/-13,10; AO 135/46(80); Mean: 11mmHg, Peak to Peak: 3mmHg, SEP: 18sec/min; HR: 60 BPM; SpO2: 97%. Multiple views taken of right coronary artery. Catheter removed over the standard J wire. Dr. Coello here to view cineography. Dr. Coello scrubbed in. 6 palestinian XB 3.5 guide catheter was inserted over the standard J wire. iFR guidewire was advanced through the guide catheter to lesion in the mid Circ. iFR of the Mid CX 0.94 with a pullback of 0.95. iFR wire redirected to the Mid LAD. iFR of the Prox LAD 0.85. Runthrough guidewire was advanced through the guide catheter to lesion in the prox LAD. iFR wire out. Inflation number : 1 A MDT NC EUPHORA RX [id number] BALLOON was prepped and advanced across the Prox LAD , then inflated to 14 MT for 0:14 seconds. Inflation number: 2 The MDT NC EUPHORA RX [id number] BALLOON was reinflated across the Prox LAD, to 12 MT for 0:12 seconds. Balloon out. Spencer 2.75 x 30 stent unable to cross, removed intact. Guideliner in OTW. Inflation Number : 3 A MDT R SPENCER 2.75X30 DESTINI -Lot Number# [id number] Exp. was prepped and advanced across the Prox LAD. The stent was deployed at 12 MT for 0:19 seconds. Stent balloon out over wire. Results checked. Inflation number : 4 A MDT NC EUPHORA RX [id number] BALLOON was prepped and advanced across the Prox LAD , then inflated to 14 MT for 0:18 seconds. Inflation number: 5 The MDT NC EUPHORA RX [id number] BALLOON was reinflated across the Prox LAD, to 14 MT for 0:10 seconds. Balloon out. Results checked. Guideliner out OTW. Wire out. ACT drawn. Results out of range HI. Guide catheter out OTW. A Right femoral angiogram was performed to determine safe placement of closure device. Lidocaine 1% infiltrated to the right groin. A Angio-Seal VIP ([place]) was successful obtaining hemostatsis at the Right Femoral artery insertion site. Dr. Coello scrubbed out. Post Procedure: Pulses reassessed and unchanged. PERRLA. Strong, equal hand volunteer firefighter bilaterally. No VTE prophylaxis required. Medication's Wasted: Other = Fentanyl 25mcg. Total IV fluids: 100 mL. Post-op diagnosis: DESTINI x 1 to the prox LAD; iFR of the Mid CX 0.94. PCI Indication: CAD (without ischemic symptoms). Complications: none. Estimated blood loss: 5mL-10mL. Responsiveness - Normal response to verbal stimuli; alert and oriented, PERRLA. Airway - Unaffected, no intervention required; spontaneous ventilation. Circulation: W/N/L, pulses unchanged. Nausea/Vomiting: No. Procedure completed. Patient transferred by bed to CPRU. Vital chart was stopped. Access Site Site: Right Femoral artery Sheath Size: 6 Fr Hemostasis Method: Angio-Seal VIP ([place]) Hemostasis Success: Successful Procedure Medications Start: 9:41 AM Stop: 9:41 AM Medication: Fentanyl Amount: 25 mcg Route: I.V. Start: 10:01 AM Stop: 10:01 AM Medication: Heparin Amount: 5000 units Route: I.V. Start: 10:08 AM Stop: 10:08 AM Medication: Versed Amount: 1 mg Route: I.V. Start: 10:28 AM Stop: 10:28 AM Medication: Fentanyl Amount: 25 mcg Route: I.V. Start: 10:40 AM Stop: 10:40 AM Medication: Plavix Amount: 600 mg Route: P.O. I, the attending physician, have reviewed and verified all procedure medications. Yes, all medications given per verbal order History/Risk Factors Hypertension: Yes Dyslipidemia: Yes Peripheral Arterial Disease (PAD): No Myocardial Infarction ([place]): No Obesity: No Renal Disease: No Prior Interventions PCI: No CABG: No Valve Surgery: No Report Signatures Interventional Workflow Finalized by Colby Coello MD on 11/18/2024 11:17 AM Diagnostic Workflow Finalized by Dr Aimee Ramos MD [facility] on 11/16/2024 12:07 AM
[2024-11-15] MEDS: aspirin 325 mg Tablet PO (08:30)
[2024-11-15] MEDS: diphenhydrAMINE 50 mg Capsule PO (08:30)
[2024-11-15 08:34] LABS: Mean Corpuscular HGB Conc 32.6 g/dL (30-55); Mean Corpuscular Volume 95.1 fl (85-98); Mean Platelet Volume 8.7 fL (7.4-10.4); Platelet Count 94 10^3/cmm (157-399); Red Blood Count 3.68 10^6/uL (3.85-5.65); Red Cell Distribution Width 14.6 % (12.1-15.1)
[2024-11-15 08:48] LABS: Anion Gap 17.1 (5-19); Blood Urea Nitrogen 13 mg/dL (8-23); Calcium 9.1 mg/dL (8.5-10.5); Carbon Dioxide 23 mmol/L (22-29); Chloride 107 mmol/L (98-107); Creatinine Clr Calc Pharmacy 48.6505; Glucose 108 mg/dL (65-115); Osmolality Calculated 297 mOsm/kg (285-295); Potassium 4.1 mmol/L (3.5-5.1); Sodium 143 mmol/L (136-145)
--- NOTE | 2024-11-15 09:06 | W.PM.OPSUD ---
Surgery/Procedure H&P Update DATE OF PROCEDURE: November 15, 2024 DATE H&P PERFORMED: 10/29/24 H&P UPDATE INFORMATION: I have reviewed H&P completed within last 30 days, I have examined patient prior to procedure and No changes to prior documentation PREOP DIAGNOSIS: ASHD PRIMARY INDICATION FOR PROCEDURE: patient with history of atherosclerotic heart disease, increasing chest pains, abnormal MPI PLANNED PROCEDURE: Operation Date: 11/15/24 08:30 Proposed Procedures p Cardiac Catheterization - [facility] w/wo LV Coros(Left) - Aimee Ramos MD PATIENT REASSESSED PRIOR TO SEDATION, WITH NO CHANGE NOTED: Yes PHYSICAL EXAM: alert, oriented x 3, clear to auscultation bilaterally and regular rate & rhythm AIRWAY EVAL/ANESTHESIA PLAN: see other exam findings, ASA III, Monitored Anesthesia, Local Anesthesia, Risks, benefits & alternatives of sedation and/or procedure discussed and Patient agrees to continue as planned
[2024-11-15 09:28] LABS: Absolute Segmented Neutrophil 3.8 10/cmm (1.6-7.1); Band Neutrophils Absolute 1.1 10^3/cmm (0.0-1.2); Eosinophils 0 %; Lymphocytes 1 %; Lymphocytes Absolute 49.6 10^3/cmm (1.2-3.4); Segmented Neutrophils 7 %; Slide Review Slide Review Perform; Total Cells Counted 100 (0-100); White Blood Count 54.52 10^3/uL (3.29-11.43)
[2024-11-15 09:29] LABS: Absolute Neutrophil 4.9 10^3/cmm (1.4-6.5); Platelet Estimate Decreased (Normal)
--- NOTE | 2024-11-15 10:57 | P.PCN_ITS ---
Procedure Note: Date of procedure: 11/15/24 Pre-procedure diagnosis: Chest pain/abnormal stress test Post-procedure diagnosis: other (Severe proximal to mid LAD stenosis confirmed with iFR value of 0.85) Procedure: Significant proximal to mid LAD stenosis. iFR is 0.85. S/p successful revascularization with 1 stent Moderate mid Left circumflex artery stenosis s/p iFR with non ischemic value of 0.94. Medical therapy Dual antiplatelet therapy with aspirin and plavix [employer] Diagnostic cath: Dr Ramos PCI: Dr Coello Performing Provider: Colby Coello Complications: None Condition: stable Disposition: floor Coding Level of Care Code Acute Code for [facility] Fwd
[2024-11-15 14:55] LABS: Glucose Point of Care 103 mg/dL (70-110)
[2024-11-15 17:20] LABS: Glucose Point of Care 122 mg/dL (70-110)
[2024-11-15] MEDS: ATORVASTATIN 10 MG TABLET 20 MG PO (20:03)
[2024-11-15 20:15] LABS: Glucose Point of Care 140 mg/dL (70-110)
[2024-11-16] VITALS (41 sets, daily range): BP systolic 117–139; BP diastolic 48–60; PULSE 62–88; RESP 18–28; TEMP 36.7–37.1; O2SAT 94–98
[2024-11-16] MEDS: FUROsemide 20 mg Tablet PO (05:27)
[2024-11-16] MEDS: tolterodine 2 mg Tablet PO (05:27)
[2024-11-16] MEDS: cholecalciferol (vitamin D3) 5,000 unit Tablet 5000 UNIT PO (05:27)
[2024-11-16] MEDS: aspirin 81 mg EC Tablet PO (05:27)
[2024-11-16] MEDS: levothyroxine 100 mcg Tablet PO (05:27)
[2024-11-16 06:10] LABS: Glucose Point of Care 124 mg/dL (70-110)
--- NOTE | 2024-11-16 08:41 | PC.NURSE ---
cath site...right groin...with drsg dry and intact.soft bruising noted.small firm knot noted at old sheath insertion/angioseal site.right leg is warm to touch and with brisk capillary refill.palpable right dp pulse noted.
[2024-11-16] MEDS: pantoprazole DR 40 mg Tablet PO (08:54)
[2024-11-16] MEDS: isosorbide mononitrate ER 30 mg Tablet PO (08:54)
[2024-11-16] MEDS: predniSONE 5 mg Tablet PO (08:54)
[2024-11-16] MEDS: lidocaine 5% Patch 1 PATCH TOPICAL (08:55)
--- NOTE | 2024-11-16 09:11 | PM.PN ---
Subjective Subjective: The patient is feeling okay. She had a cardiac catheterization followed by PCI of the LAD yesterday. Did not have any chest pain or palpitations since the intervention. Vital signs remained stable. Medications: Medication Review Details: Current Medications Albuterol Sulfate (Albuterol 2.5 Mg/3 Ml Neb) 2.5 mg INHALATION QID PRN PRN Reason: shortness of breath or wheezing Albuterol Sulfate (Albuterol 2.5 Mg/3 Ml Neb) 2.5 mg INHALATION QID.RESPIRATORY PRN PRN Reason: SHORTNESS OF BREATH Aspirin (Aspirin 81 Mg Ec Tablet) 81 mg PO QAM [facility] Last Admin: 11/16/24 05:27 Dose: 81 mg Atorvastatin Calcium (Atorvastatin 10 Mg Tablet) 20 mg PO BEDTIME [facility] Last Admin: 11/15/24 20:03 Dose: 20 mg Calcium Carbonate (Calcium Carbonate 500 Mg Chew Tablet) 500 mg PO Q4H PRN PRN Reason: INDIGESTION Cyclobenzaprine HCl (Cyclobenzaprine 10 Mg Tablet) 10 mg PO .at bedtime [facility] Diazepam (Diazepam 2 Mg Tablet) 2 mg PO TID PRN PRN Reason: muscle spasm Furosemide (Furosemide 20 Mg Tablet) 20 mg PO QAM [facility] Last Admin: 11/16/24 05:27 Dose: 20 mg Glucagon (Glucagon 1 Mg/Ml Kit 1 Ml) 1 mg IM ONCE PRN; Protocol PRN Reason: Adult Acute Hypoglycemia Nursing Prot. Dextrose (D5w) 500 mls @ 0 mls/hr IV ONCE PRN; Protocol PRN Reason: Adult Acute Hypoglycemia Prot Dextrose (D10w) 125 mls @ 750 mls/hr IV PRN PRN; Protocol PRN Reason: Adult Acute Hypoglycemia Nursing Protocol Dextrose (D10w) 250 mls @ 1,000 mls/hr IV PRN PRN; Protocol PRN Reason: Adult Acute Hypoglycemia Nursing Protocol Insulin Glargine (Insulin Glargine 100 Units/1 Ml) 40 unit SUBCUT DAILY [facility] Last Admin: 11/16/24 08:55 Dose: Not Given Insulin Human Lispro (Insulin Lispro 100 Unit/1 Ml) 0 unit SUBCUT TIDWM [facility]; Protocol Last Admin: 11/16/24 06:59 Dose: Not Given Isosorbide Mononitrate (Isosorbide Mononitrate Er 30 Mg Tablet) 30 mg PO DAILY [facility] Last Admin: 11/16/24 08:54 Dose: 30 mg Levothyroxine Sodium (Levothyroxine 100 Mcg Tablet) [facility] [place] Admin: 11/16/24 05:27 Dose: 100 mcg Lidocaine (Lidocaine 5% Patch) 1 patch TOPICAL [id number] [facility] Last Admin: 11/16/24 08:55 Dose: 1 patch Nitroglycerin (Nitroglycerin 0.4 Mg Sublingual Tablet) 0.4 mg SUBLINGUAL Q5M PRN PRN Reason: CHEST PAIN Pantoprazole Sodium (Pantoprazole Dr 40 Mg Tablet) 40 mg PO DAILY [facility] Last Admin: 11/16/24 08:54 Dose: 40 mg Prednisone (Prednisone 5 Mg Tablet) 5 mg PO DAILY [facility] Last Admin: 11/16/24 08:54 Dose: 5 mg Prednisone (Prednisone 10 Mg Tablet) 10 - 20 mg PO PRN PRN PRN Reason: joint pain Tolterodine Tartrate (Tolterodine 2 Mg Tablet) 2 mg PO [facility] Last Admin: 11/16/24 05:27 Dose: 2 mg Vitamin D (Cholecalciferol (Vitamin D3) 5,000 Unit Tablet) 5,000 unit PO [facility] Last Admin: 11/16/24 05:27 Dose: 5,000 unit Vitals/I&O/Wt Last Vital Signs Temp 98.0 F 11/16/24 07:34 Pulse 69 11/16/24 08:15 Resp 24 H 11/16/24 08:15 BP 134/60 11/16/24 08:30 Pulse Ox 96 11/16/24 08:15 O2 Del Method Room Air 11/16/24 08:00 11/15/24 11/16/24 11/16/24 22:59 06:59 14:59 Intake Total 350 / 350 100 / 450 360 / 360 Output Total 150 / 150 Balance 200 / 200 100 / 300 360 / 360 Weight last 48 hrs Weight 140 lb Physical Exam Narrative: GENERAL: The patient is alert and oriented times three. Not in any acute distress. HEENT: No significant pallor, icterus or lymphadenopathy.Oral cavity: There are no mucous membrane lesions. NECK: Trachea appears to be central. No masses noted. No JVD or thyromegaly appreciated. RESPIRATORY: Chest is symmetrical. No intercostals muscle retraction or any accessory muscle activation. There is no chest wall tenderness. Breath sounds are heard bilaterally. No rales or rhonchi heard. No evidence of any consolidation. BREASTS: Deferred. HEART: The heart sounds are normal. No S3 or S4. No significant murmurs. No pericardial rub ABDOMEN: No vessel pulsations or distention. No tenderness. No organomegaly appreciated. Bowel sounds are normally heard. : Deferred. RECTAL: Deferred. LYMPHATIC: No lymphadenopathy noted in the neck. EXTREMITIES: No hematoma or bleeding at the right groin. MUSCULOSKELETAL: No acute joint deformities or swelling SKIN: There are no significant rashes or ecchymosis NEUROPSYCHIATRIC: The patient is alert and oriented x3. Appears to be in a good mood. No tremors or rigidity noted. Data 11/16/24 09:53 11/16/24 09:53 Other Labs: Laboratory Last Values WBC 54.52 10^3/uL (3.29-11.43) H* 11/15/24 Unknown RBC 3.68 10^6/uL (3.85-5.65) L 11/15/24 Unknown Hgb 11.40 g/dL (11.27-16.99) 11/15/24 Unknown Hct 35.0 % (36-47) L 11/15/24 Unknown MCV 95.1 fl (85-98) 11/15/24 Unknown MCH 31.0 pg (27-33) 11/15/24 Unknown MCHC 32.6 g/dL (30-55) 11/15/24 Unknown RDW 14.6 % (12.1-15.1) 11/15/24 Unknown Plt Count 94 10^3/cmm (157-399) L 11/15/24 Unknown MPV 8.7 fL (7.4-10.4) 11/15/24 Unknown Lymph % (Auto) Not Reportable 11/15/24 Unknown [place] % (Auto) Not Reportable 11/15/24 Unknown Lymph # (Auto) Not Reportable 11/15/24 Unknown [place] # (Auto) Not Reportable 11/15/24 Unknown Total Counted 100 (0-100) 11/15/24 Unknown Atypical Lymphs % 90.0 % (0-5) H 11/15/24 Unknown Absolute Neutrophils 4.9 10^3/cmm (1.4-6.5) 11/15/24 Unknown Segmented Neutrophils 7 % 11/15/24 Unknown Band Neutrophils 2.0 % 11/15/24 Unknown Absolute Lymphocytes 49.6 10^3/cmm (1.2-3.4) H 11/15/24 Unknown Lymphocytes (Manual) 1 % 11/15/24 Unknown Monocytes (Manual) 0.0 % 11/15/24 Unknown Absolute Monocytes 0.0 10^3/cmm (0.1-0.6) L 11/15/24 Unknown Eosinophils (Manual) 0 % 11/15/24 Unknown Absolute Eosinophils 0.0 10^3/cmm (0.0-0.7) 11/15/24 Unknown Basophils (Manual) 0.0 % 11/15/24 Unknown Absolute Basophils 0.0 10^3/cmm (0.0-0.2) 11/15/24 Unknown Platelet Estimate Decreased (Normal) L 11/15/24 Unknown Sodium 143 mmol/L (136-145) 11/15/24 Unknown Potassium 4.1 mmol/L (3.5-5.1) 11/15/24 Unknown Chloride 107 mmol/L (98-107) 11/15/24 Unknown Carbon Dioxide 23 mmol/L (22-29) 11/15/24 Unknown Anion Gap 17.1 (5-19) 11/15/24 Unknown BUN 13 mg/dL (8-23) 11/15/24 Unknown Creatinine 0.6 mg/dL (0.5-0.9) 11/15/24 Unknown GFR Calculation Not Reportable 11/15/24 Unknown Glucose 108 mg/dL (65-115) 11/15/24 Unknown POC Glucose 124 mg/dL (70-110) H 11/16/24 06:05 Calculated Osmolality 297 mOsm/kg (285-295) H 11/15/24 Unknown Calcium 9.1 mg/dL (8.5-10.5) 11/15/24 Unknown A&P Assessment and plan (1) Atherosclerotic heart disease of [place] coronary artery with other forms of angina pectoris: Status post PCI of the LAD. Currently remains stable. May continue on the Plavix and aspirin along with the other medications. (2) Hyperlipidemia: Male current management. (3) Essential hypertension, benign: The vital signs remained stable. May continue on the current medications. (4) Presence of permanent cardiac pacemaker: Pacemaker function is appropriate. 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 Plan Since the patient is remaining stable, may be discharged home today. 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
[2024-11-16 10:01] LABS: Eosinophils # 0.1 10^3/uL (0.0-0.8); Eosinophils % 0.2 %; Hematocrit 36.3 % (36-47); Lymphocytes # 47.2 10^3/uL (0.8-4.8); Mean Corpuscular HGB Conc 30.9 g/dL (30-55); Mean Corpuscular Hemoglobin 30.7 pg (27-33); Mean Corpuscular Volume 99.5 fl (85-98); Mean Platelet Volume 8.7 fL (7.4-10.4); Monocytes # 3.1 10^3/uL (0.2-0.9); Monocytes % 5.6 %; Neutrophils # 4.19 10^3/uL (1.8-7.7); Neutrophils % 7.7 %; Nucleated Red Blood Cells % 0.1 %; Platelet Count 108 10^3/cmm (157-399); Red Blood Count 3.65 10^6/uL (3.85-5.65); Red Cell Distribution Width 14.8 % (12.1-15.1)
[2024-11-16 10:05] LABS: Lymphocytes % 86.2 %
[2024-11-16 10:06] LABS: White Blood Count 54.76 10^3/uL (3.29-11.43)
[2024-11-16] MEDS: albuterol 2.5 mg/3 mL Neb INHALATION (10:11)
[2024-11-16 10:18] LABS: Blood Urea Nitrogen 8 mg/dL (8-23); Carbon Dioxide 21 mmol/L (22-29); Chloride 104 mmol/L (98-107); Creatinine Clr Calc Pharmacy 48.6505; Glucose 139 mg/dL (65-115); Osmolality Calculated 285 mOsm/kg (285-295); Sodium 137 mmol/L (136-145)
[2024-11-16 10:21] LABS: Anion Gap 16.5 (5-19); Potassium 4.5 mmol/L (3.5-5.1)
[2024-11-16 11:43] LABS: Glucose Point of Care 176 mg/dL (70-110)
--- NOTE | 2024-11-16 12:47 | PC.NURSE ---
discharge instructions given and explained.pt verb understanding of instructions.discharged via w/c to exit at this time.son to drive pt home
== END 2024-11-16 12:49 | disposition home or self-care (01) ==
LOC: CCL 07:45 → CSU 13:12
PROVIDERS: Internal Medicine; PCP Nurse Practitioner; Visit Provider Internal Medicine Cardiovascular Disease
DX: I25.118 Atherosclerotic heart disease of native coronary artery with other forms of angina pectoris (principal); E78.2 Mixed hyperlipidemia; I10 Essential (primary) hypertension; Z95.0 Presence of cardiac pacemaker; C91.10 Chronic lymphocytic leukemia of B-cell type not having achieved remission; E11.9 Type 2 diabetes mellitus without complications; Z79.82 Long term (current) use of aspirin; Z79.4 Long term (current) use of insulin; K21.9 Gastro-esophageal reflux disease without esophagitis; J44.9 Chronic obstructive pulmonary disease, unspecified; Z82.49 Family history of ischemic heart disease and other diseases of the circulatory system; Z87.891 Personal history of nicotine dependence
CPT/HCPCS: 36415; 36416; 80048; 82962; 85007; 85025; 85347; 93458; 93571; 93572; 94640; 96374; 99152; 99153; C1725; C1760; C1769; C1874; C1887; C1894; C9600; G0269; J1644; J2250; J3010; J3490; J7030; J7512; J7613; J9999; Q0163; Q9967

== ENCOUNTER 2024-12-10 14:05 | Oncology outpatient (recurring) (ONCR) | payer MEDICARE, OTHER, SELFPAY ==
[2024-12-10 14:54] LABS: Reticulocyte % 2.4 % (0.5-2.0)
[2024-12-10 14:55] LABS: Basophils # 0.1 10^3/uL (0.0-0.1); Basophils % 0.3 %; Eosinophils # 0.1 10^3/uL (0.0-0.8); Eosinophils % 0.1 %; Hematocrit 33.6 % (36-47); Lymphocytes # 41.2 10^3/uL (0.8-4.8); Lymphocytes % 85.7 %; Mean Corpuscular HGB Conc 31.5 g/dL (30-55); Mean Corpuscular Hemoglobin 30.5 pg (27-33); Mean Corpuscular Volume 96.8 fl (85-98); Mean Platelet Volume 8.8 fL (7.4-10.4); Monocytes # 3.5 10^3/uL (0.2-0.9); Monocytes % 7.2 %; Neutrophils # 3.05 10^3/uL (1.8-7.7); Neutrophils % 6.3 %; Nucleated Red Blood Cells % 0 %; Platelet Count 107 10^3/cmm (157-399); Red Blood Count 3.47 10^6/uL (3.85-5.65)
[2024-12-10 15:05] LABS: Erythrocyte Sedimentation Rate 2 mm/hr (0-15)
[2024-12-10 15:16] LABS: Alanine Aminotransferase 11 U/L (0-33); Albumin Level 4.2 g/dL (3.5-5.2); Alkaline Phosphatase 61 U/L (35-105); Anion Gap 14.6 (5-19); Aspartate Amino Transferase 17 U/L (0-32); Blood Urea Nitrogen 16 mg/dL (8-23); Calcium 9.2 mg/dL (8.5-10.5); Carbon Dioxide 28 mmol/L (22-29); Chloride 105 mmol/L (98-107); Ferritin 97 ng/mL (15-150); Globulin 2.1 g/dL (1.3-4.6); Glucose 135 mg/dL (65-115); Iron 62 ug/dL (37-145); Lactate Dehydrogenase 271 U/L (135-214); Osmolality Calculated 299 mOsm/kg (285-295); Percent Saturation 21.9 % (20-50); Phosphorus 3.8 mg/dL (2.5-4.5); Potassium 4.6 mmol/L (3.5-5.1); Sodium 143 mmol/L (136-145); Total Bilirubin 0.4 mg/dL (0.15-1.2); Total Iron Binding Capacity 282 mcg/dl; Total Protein 6.3 g/dL (6.6-8.7); Unsaturated Iron Binding 220 ug/dL (112-347); Uric Acid 4.2 mg/dL (2.4-5.7)
[2024-12-10 15:37] LABS: Folate Level 10.4 ng/mL (4.8-37.3); Slide Review Slide Review Perform
[2024-12-10 15:38] LABS: White Blood Count 48.08 10^3/uL (3.29-11.43)
[2024-12-11 09:05] LABS: PROTEIN, TOTAL 6.3 g/dL (6.1-8.1)
[2024-12-11 14:55] LABS: Thyroid Stimulating Hormone 1.42 uIU/mL (0.27-4.20)
[2024-12-12 18:14] LABS: ALBUMIN 4.1 g/dL (3.8-4.8); ALPHA 1 GLOBULIN 0.3 g/dL (0.2-0.3); ALPHA 2 GLOBULIN 0.8 g/dL (0.5-0.9); BETA 1 GLOBULIN 0.4 g/dL (0.4-0.6); BETA 2 GLOBULIN 0.2 g/dL (0.2-0.5); GAMMA GLOBULIN 0.5 g/dL (0.8-1.7)
== END 2025-01-06 23:59 | disposition home or self-care (01) ==
PROVIDERS: PCP Nurse Practitioner; Visit Provider Internal Medicine
DX: Z08 Encounter for follow-up examination after completed treatment for malignant neoplasm (principal); Z85.6 Personal history of leukemia; Z87.891 Personal history of nicotine dependence; R30.0 Dysuria; G70.00 Myasthenia gravis without (acute) exacerbation; I25.118 Atherosclerotic heart disease of native coronary artery with other forms of angina pectoris; Z79.4 Long term (current) use of insulin; E11.65 Type 2 diabetes mellitus with hyperglycemia
CPT/HCPCS: 36415; 80053; 82728; 82746; 83010; 83540; 83550; 83615; 84100; 84155; 84165; 84443; 84550; 85025; 85045; 85651; 99214

== ENCOUNTER → 2024-12-31 10:30 | Outpatient (BNVA) | payer MEDICARE, OTHER, SELFPAY | PROVIDERS: PCP Nurse Practitioner; Visit Provider Podiatrist Foot & Ankle Surgery | DX: E11.8 Type 2 diabetes mellitus with unspecified complications (principal); L60.3 Nail dystrophy; E11.65 Type 2 diabetes mellitus with hyperglycemia; Z79.4 Long term (current) use of insulin | CPT/HCPCS: 11721 ==

== ENCOUNTER → 2025-01-13 14:22 | Outpatient (BNVA) | payer MEDICARE, OTHER, SELFPAY | PROVIDERS: PCP Nurse Practitioner; Visit Provider Internal Medicine Rheumatology | DX: C91.10 Chronic lymphocytic leukemia of B-cell type not having achieved remission (principal); M05.79 Rheumatoid arthritis with rheumatoid factor of multiple sites without organ or systems involvement; Z79.899 Other long term (current) drug therapy | CPT/HCPCS: 99214 ==

== ENCOUNTER 2025-02-11 11:57 | Oncology outpatient (recurring) (ONCR) | payer MEDICARE, OTHER, SELFPAY ==
[2025-02-11 12:43] LABS: Hematocrit 33.9 % (36-47); Hemoglobin 10.80 g/dL (11.27-16.99); Mean Corpuscular HGB Conc 31.9 g/dL (30-55); Mean Corpuscular Hemoglobin 29.3 pg (27-33); Mean Corpuscular Volume 91.9 fl (85-98); Nucleated Red Blood Cells % 0 %; Platelet Count 184 10^3/cmm (157-399); Red Blood Count 3.69 10^6/uL (3.85-5.65)
[2025-02-11 13:03] LABS: Alanine Aminotransferase 11 U/L (0-33); Albumin Level 3.8 g/dL (3.5-5.2); Alkaline Phosphatase 78 U/L (35-105); Anion Gap 13.0 (5-19); Aspartate Amino Transferase 17 U/L (0-32); Blood Urea Nitrogen 20 mg/dL (8-23); Calcium 8.5 mg/dL (8.5-10.5); Carbon Dioxide 28 mmol/L (22-29); Chloride 105 mmol/L (98-107); Creatinine Clr Calc Pharmacy 48.1846; Globulin 2.3 g/dL (1.3-4.6); Glucose 122 mg/dL (65-115); Osmolality Calculated 298 mOsm/kg (285-295); Potassium 4.0 mmol/L (3.5-5.1); Sodium 142 mmol/L (136-145); Total Protein 6.1 g/dL (6.6-8.7)
[2025-02-11 13:47] LABS: Lactate (Lactic Acid level) 1.4 mmol/L (0.5-2.2)
[2025-02-11 13:51] LABS: Slide Review Slide Review Perform; White Blood Count 85.73 10^3/uL (3.29-11.43)
[2025-02-11 13:57] LABS: Ferritin 133 ng/mL (15-150); Iron 48 ug/dL (37-145); Total Iron Binding Capacity 251 mcg/dl; Unsaturated Iron Binding 203 ug/dL (112-347)
== END 2025-03-09 23:59 | disposition home or self-care (01) ==
PROVIDERS: Nurse Practitioner Family; PCP Nurse Practitioner; Visit Provider Internal Medicine Medical Oncology
DX: C91.10 Chronic lymphocytic leukemia of B-cell type not having achieved remission (principal); G70.00 Myasthenia gravis without (acute) exacerbation; Z87.891 Personal history of nicotine dependence; R07.89 Other chest pain; J20.9 Acute bronchitis, unspecified; E11.65 Type 2 diabetes mellitus with hyperglycemia; Z79.4 Long term (current) use of insulin; I63.9 Cerebral infarction, unspecified; J98.11 Atelectasis; T14.8XXA Other injury of unspecified body region, initial encounter; X58.XXXA Exposure to other specified factors, initial encounter; R61 Generalized hyperhidrosis
CPT/HCPCS: 36415; 80053; 82728; 83540; 83550; 83605; 85025; 99214

== ENCOUNTER 2025-02-26 13:03 | Emergency (ER) | payer MEDICARE, OTHER, SELFPAY ==
--- OUTSIDE RECORDS SUMMARY | 2024-05-04 04:00 | XMS_ITS ---
Author Organization [facility] Address [address] [place] [address] Care Team Providers Care Rabies Inspector Name Role Phone Migration, Provider Unavailable Unavailable REASON FOR VISIT [facility] Encounters Encounter Location Date Provider Diagnosis Migrated_Facility 0 0 05/04/2024 Provider Migration Plan Of Treatment No Information Progress Notes * DALTON HENSON LDOB: [birth year] (84 yo F)Acc No.[id number]:05/04/2024 Patient: Jacinto LEARYDALTON HERNANDEZ :1940 A ge:84 Y S ex:Female Address:[address] [place] [id number] Subjective: * Chief Complaints: * E MR-[facility]ra * * Date:
--- OUTSIDE RECORDS SUMMARY | 2024-05-05 04:00 | XMS_ITS ---
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
--- NOTE | 2025-02-26 13:08 | XR_ITS ---
WS: [id number] Portable AP upright chest, 02/26/2025 Clinical Data: cp Comparison: Portable chest, 09/25/2024 Findings: No nodules, masses or effusions are seen. The heart is normal. The pulmonary vascularity is not increased. No pneumonia or pneumothorax is seen. The diaphragms are flattened. There is a permanent pacemaker unchanged in position with the generator overlying the left upper lobe chest wall. The aortic arch shows calcification. XR/XR chest 1V portable [id number] Impression: Atherosclerosis and hyperinflation.
--- OUTSIDE RECORDS SUMMARY | 2025-02-26 13:18 | XMS_ITS | Encounter Summary ---
Author Organization [facility] Address [address] [facility] [address] Attn: Epic Prelude ADT ABDIEL DELATORRE [address] Care Team Providers Care Refinery Operator Helper Cracking Unit Name Role Phone Unavailable Primary Care Provider Unavailabl e Encounter Details Date Type Department Care Team (Late st Contact Info) Description 03/26/2008 Outpatient Historical Felix Wright MD NO ADDRESS ON FILE Social History Tobacco Use Types Packs/Day Years Used Date Smoking Tobacco: Never Assessed Comments Unknown Sex and Gender Information Value Date Recorded Sex Assigned at Not on file Legal 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 Gender Identity Not on file Sexual Orientation Not on file documented as of this encounter Plan of Treatment Not on file documented as of this encounter Procedures Procedure Name Priority Date/Time Associated Diagnosis Comments T3 FREE Routine 03/26/2008 11:17 AM CDT documented in this encounter Results * (ABNORMAL) T3 FREE (03/26/2008 11:17 AM CDT) T3 FREE 7.6(H) 2.3 - 4.2 pg/mL [facility] Blood specimen (specimen) 03/26/2008 11:17 AM CDT 03/26/2008 9:46 PM CDT us Felix Wright MD CHEMISTRY ORDERABLES Final R esult INTERFACE SYSTEM Refer to clinic/hospital department [facility] CLIA# [id number] [address] [place] [address] documented in this encounter Visit Diagnoses Not on filedocumented in this encounter
--- OUTSIDE RECORDS SUMMARY | 2025-02-26 13:18 | XMS_ITS | Clinical Summary ---
Author Organization [facility] Address [address] [place] [address] Care Team Providers Care Food Service Technician Name Role Phone Unavailable Primary Care Provider Unavailabl e Social History Tobacco Use Types Packs/Day Years Used Date Smoking Tobacco: Never Assessed Comments Unknown Sex and Gender Information Value Date Recorded Sex Assigned at Not on file Legal Sex Female 8:37 PM CDT Gender Identity Not on file Sexual Orientation Not on file Plan of Treatment Health Maintenance Due Date Last Done Comments Depression Screening 1960 TDAP/DTaP/TD Vaccines (1 - Tdap) 1961 Pneumococcal Vaccine 50+ (1 of 1 - PCV) 1992 Zoster Vaccine (1 of 2) 1992 DXA Scan 2007 Respiratory Syncytial Virus (RSV) Immunization - pts and pts aged 60 yrs+ (1 - 1-dose 75+ series) 2017 COVID-19 Vaccine (2023-2 5 season) 2024 Annual Wellness Exam 07/10/2024 Influenza Series (#1) 2025 Hepatitis B Vaccine Aged Out No longe r eligible based on patient's age to complete this topic Meningococcal B Vaccine Aged Out No l onger eligible based on patient's age to complete this topic
--- OUTSIDE RECORDS SUMMARY | 2025-02-26 13:18 | XMS_ITS | Encounter Summary ---
Author Organization [facility] Address [address] [place] [address] Care Team Providers Care Ocean Freight Manager Name Role Phone Unavailable Primary Care Provider Unavailabl e Encounter Details Date Type Department Care Team (Late st Contact Info) Description 05/13/2008 Outpatient Historical [facility] [address] [address] [place] [id number] Braulio Nixon MD NO ADDRESS ON FILE Social History Tobacco Use Types Packs/Day Years Used Date Smoking Tobacco: Never Assessed Comments No Sex and Gender Information Value Date Recorded Sex Assigned at Not on file Legal Sex Female 6:30 AM CONE TREATER Gender Identity Not on file Sexual Orientation Not on file documented as of this encounter Plan of Treatment Not on file documented as of this encounter Procedures Procedure Name Priority Date/Time Associated Diagnosis Comments XR CHEST PA OR AP 1 VW Routine 8 1:11 PM CONE TREATER PT AND APTT Stat 05/13/2008 12:35 PM CONE TREATER COMPREHENSIVE METABOLIC PANEL Stat 05/13/2008 12:35 PM CONE TREATER CBC WITH DIFFERENTIAL Stat 05/13/2008 12:26 PM CONE TREATER documented in this encounter Results * XR CHEST PA OR AP (05/13/2008 1:11 PM CONE TREATER) Anatomical Region Laterality Modality Chest Other 05/13/2008 1:11 PM CONE TREATER Narrative 05/15/2008 8:19 AM CONE TREATER Exam: Chest - PA Date/Time of Exam: May 13, 2008 1:11:43 PM History: Preoperative. Findings: Granuloma in the right upper lobe laterally. No acute pulmonary disease. No pleural effusion. Old left rib fractures. Cardiomediastinal contours are unremarkable. Impression: No active cardiopulmonary disease. - Dictated By: Howard Jose M.D. Electronically Signed By: Howard Jose M.D. Date Signed: 05/15/08 SANIA Procedure Note Howard Jose MD - 05/15/2008 Exam: Chest - PA Date/Time of Exam: May 13, 2008 1:11:43 PM History: Preoperative. Findings: Granuloma in the right upper lobe laterally. No acute pulmonarydisease. No pleural effusion. Old left rib fractures. Cardiomediastinal contours are unremarkable. Impression: No active cardiopulmonary disease. - Dictated By: Howard Jose M.D. Electronically Signed By: Howard Jose M.D. Date Signed: 05/15/08 SANIA us Braulio Nixon MD DIAGNOSTIC IMAGING ORDERABLES Final Result * (ABNORMAL) COMPREHENSIVE METABOLIC PANEL (05/13/2008 12:35 PM CONE TREATER) OSMOLALITY, CALCULATED 294 275 - 295 mOsm/Kg [facility] GLUCOSE 182(H) 70 - 110 mg/dL [facility] CHLORIDE 106 95 - 110 mEq/L [facility] ALBUMIN/GLOBULIN RATIO 1.6 1.0 - 2.3 [facility] ALKALINE PHOSPHATASE 222(H) 25 - 100 U/L [facility] SODIUM 139 136 - 145 mEq/L [facility] BILIRUBIN TOTAL 0.3 0.3 - 1.2 mg/dL [facility] TOTAL PROTEIN 7.0 6.3 - 8.2 g/dL [facility] BUN 22(H) 7 - 17 mg/dL [facility] AST 21 8 - 33 U/L [facility] CO2 25 22 - 32 mmol/l [facility] ANION GAP 12 9 - 20 mEq/L [facility] ALBUMIN 4.3 3.5 - 5.0 g/dL [facility] POTASSIUM 4.2 3.5 - 5.0 mEq/L [facility] GLOBULIN (CALC) 2.7 2.4 - 3.9 g/dL [facility] CREATININE 0.9 0.7 - 1.2 mg/dL [facility] CALCIUM 9.7 8.4 - 10.5 mg/dL [facility] ALT 22 4 - 36 IU/L [facility] Blood specimen (specimen) 05/13/2008 12:35 PM CONE TREATER 05/13/2008 12:46 PM CONE TREATER us Braulio Nixon MD CHEMISTRY ORDERABLES Final Re sult INTERFACE SYSTEM Refer to clinic/hospital department [facility] CLIA# [id number] [address] [place] [address] * PT AND APTT (05/13/2008 12:35 PM CONE TREATER) PTT 27.7 22.5 - 36.[address] [facility] Comment: Therapeutic Range: Hi-level PE/DVT heparin protocol 80.1 -95.0 sec Lo-level PE/DVT heparin protocol 67.1 - 80.0 sec Cardiac Heparin Protocol 67.1 - 85.0 sec Neuro Heparin Protocol 67.1 - 80.0 sec As of 09/27/2007 note change in APTT Normal Range. INR 1.0 [facility] Comment: Expected Values for INR: DVT/PE Goal INR 2.5; range 2.0 - 3.0 Valve Replacement Tissue Goal INR 2.5; range 2.0 - 3.0 Mechanical Goal INR 3.0; range 2.5 - 3.5 POST-IL Goal INR 2.5; range 2.0 - 3.0 or Goal 3.0; range 2.5 - 3.5 Atrial Fibrillation Goal INR 2.5; range 2.0 - 3.0 Ischemic Stroke Goal INR 2.5; range 2.0 - 3.0 For additional information see Guidelines for Anticoagulation available from the pharmacy Mayra Garcia [phone] PROTIME 14.5 12.8 - 15.[address] [facility] Comment:As of 2007 not e change in normal range. Blood specimen (specimen) 05/13/2008 12:35 PM CONE TREATER 05/13/2008 12:46 PM CONE TREATER us Braulio Nixon MD HEMATOLOGY ORDERABLES Edited INTERFACE SYSTEM Refer to clinic/hospital department [facility] CLIA# [id number] [address] [place] [address] * (ABNORMAL) CBC WITH DIFFERENTIAL (05/13/2008 12:26 PM CONE TREATER) MCV 84.1 84.0 - 103.[address] [facility] BASOPHILS 0.3 0.0 - 1.0 % [facility] MPV 9.8 8.9 - 12.[address] [facility] BASOPHILS ABSOLUTE 0.0 0.0 - 0.2 K/ul [facility] HEMOGLOBIN 14.2 12.0 - 16.0 g/dL [facility] MONOCYTES 9.0 2.0 - 10.0 % [facility] RDW 12.9 11.0 - 14.5 % [facility] MONOCYTE ABSOLUTE 0.8(H) 0.1 - 0.6 K/ul [facility] WBC 9.2 4.8 - 10.8 K/ul [facility] NEUTROPHILS 59.6 42.2 - 75.2 % [facility] MCH 28.6 27.0 - 34.[address] [facility] NEUTROPHIL ABSOLUTE 5.5 2.0 - 8.0 K/ul [facility] HEMATOCRIT 41.8 36.0 - 46.0 % [facility] PLATELETS 267 140 - 440 K/ul [facility] EOSINOPHIL ABSOLUTE 0.2 0.0 - 0.7 K/ul [facility] EOSINOPHILS 1.9 0.0 - 7.0 % [facility] RBC 4.97 4.20 - 5.40 Mil/ul [facility] MCHC 34.0 30.0 - 35.0 g/dL [facility] LYMPHOCYTE ABSOLUTE 2.7 1.2 - 4.0 K/ul [facility] LYMPHOCYTES 29.2 24.0 - 44.0 % [facility] Blood specimen (specimen) 05/13/2008 12:26 PM CONE TREATER 05/13/2008 1:06 PM CONE TREATER us Braulio Nixon MD HEMATOLOGY ORDERABLES Final R esult INTERFACE SYSTEM Refer to clinic/hospital department [facility] CLIA# [id number] [facility] [place] [address] documented in this encounter Visit Diagnoses Not on filedocumented in this encounter
--- OUTSIDE RECORDS SUMMARY | 2025-02-26 13:18 | XMS_ITS | Patient Health Record ---
Author Organization [facility] Address [address] [place] [address] Care Team Providers Care Information Security Engineer Name Role Phone Migration, Provider Unavailable Unavailable Reason For Referral No Information Medications Medication SIG (Take, Route, Frequency, Duration) Notes Start Date End Date Status Lisinopril Lisinopril 01/11/2018 Active Aspirin Aspirin 01/11/2018 Active Potassium Chloride 10 MEQ Extended Release Capsule Potassium Chloride 10 MEQ Extended Release Capsule 01/11/2018 Active Diclofenac Sodium 0.01 MG/MG Topical Gel [Voltaren] Diclofenac Sodium 0.01 MG/MG Topical Gel [Voltaren] 01/11/2018 Active Bisacodyl Bisacodyl 01/11/2018 Active Ranitidine Ranitidine 01/11/2018 Active MiraLax Miralax 01/11/2018 Active montelukast montelukast 01/11/2018 Acti ve tolterodine tolterodine 01/11/2018 Acti ve Gabapentin gabapentin 01/11/2018 Active insulin detemir 100 UNT/ML Injectable Solution insulin detemir 100 UNT/ML Injectable Solution 01/11/2018 Active Victoza Victoza 01/11/2018 Active Simvastatin 20 MG Oral Tablet Simvastatin 20 MG Oral Tablet 09/23/2011 Active Albuterol Albuterol 09/23/2011 Active 200 ACTUAT Albuterol 0.09 MG/ACTUAT Metered Dose Inhaler [ProAir HFA] 200 ACTUAT Albuterol 0.09 MG/ACTUAT Metered Dose Inhaler [ProAir HFA] 01/11/2018 Active Furosemide Furosemide 01/11/2018 Active meclizine Meclizine 01/11/2018 Active Buspirone Buspirone 01/11/2018 Active Canagliflozin canagliflozin 01/11/2018 Active Metformin hydrochloride 500 MG Oral Tablet Metformin hydrochloride 500 MG Oral Tablet 10/13/2011 Active Thyroxine Thyroxine 01/11/2018 Active Encounters Encounter Location Date Provider Diagnosis Migrated_Facility 0 0 05/04/2024 Provider Migration Migrated_Facility 0 0 05/05/2024 Provider Migration Plan Of Treatment No Information
--- OUTSIDE RECORDS SUMMARY | 2025-02-26 13:18 | XMS_ITS | Encounter Summary ---
Author Organization [facility] Address [address] [place] [address] Care Team Providers Care Multiple Spindle Router Operator Name Role Phone Unavailable Primary Care Provider Unavailabl e Encounter Details Date Type Department Care Team (Late st Contact Info) Description 05/13/2008 Outpatient Historical [facility] [place], Braulio Syed MD NO ADDRESS ON FILE Social History Tobacco Use Types Packs/Day Years Used Date Smoking Tobacco: Never Assessed Comments No Sex and Gender Information Value Date Recorded Sex Assigned at Not on file Legal Sex Female 6:30 AM UNIVERSITY ADMINISTRATIVE ASSISTANT Gender Identity Not on file Sexual Orientation Not on file documented as of this encounter Plan of Treatment Not on file documented as of this encounter Procedures Procedure Name Priority Date/Time Associated Diagnosis Comments CALCIUM LEVEL Routine 05/30/2008 7:15 AM UNIVERSITY ADMINISTRATIVE ASSISTANT POC GLUCOSE Routine 05/30/2008 4:48 AM UNIVERSITY ADMINISTRATIVE ASSISTANT CALCIUM LEVEL Routine 05/29/2008 9:25 PM UNIVERSITY ADMINISTRATIVE ASSISTANT POC GLUCOSE Routine 05/29/2008 6:35 PM UNIVERSITY ADMINISTRATIVE ASSISTANT POC GLUCOSE Routine 05/29/2008 6:48 AM UNIVERSITY ADMINISTRATIVE ASSISTANT PATHOLOGY Routine 05/29/2008 6:34 AM UNIVERSITY ADMINISTRATIVE ASSISTANT documented in this encounter Results * CALCIUM LEVEL (05/30/2008 7:15 AM UNIVERSITY ADMINISTRATIVE ASSISTANT) CALCIUM 8.8 8.4 - 10.5 mg/dL LAB Blood specimen (specimen) 05/30/2008 7:15 AM UNIVERSITY ADMINISTRATIVE ASSISTANT 05/30/2008 7:54 AM UNIVERSITY ADMINISTRATIVE ASSISTANT us Braulio Nixon MD CHEMISTRY ORDERABLES Final Re sult Performing Organization Address [facility] Phone Number INTERFACE SYSTEM Refer to clinic/hospital department LAB CLIA# [id number] [address] [place] [address] * (ABNORMAL) POC GLUCOSE (05/30/2008 4:48 AM UNIVERSITY ADMINISTRATIVE ASSISTANT) GLUCOSE POC 221(H) 60 - 100 mg/dL LAB Venous blood specimen (specimen) 05/30/2008 4:48 AM UNIVERSITY ADMINISTRATIVE ASSISTANT 05/31/2008 4:13 AM UNIVERSITY ADMINISTRATIVE ASSISTANT us Braulio Nixon MD POINT OF CARE TESTING Final R esult Performing Organization Address [facility] Phone Number INTERFACE SYSTEM Refer to clinic/hospital department LAB CLIA# [id number] [address] [place] [address] * CALCIUM LEVEL (05/29/2008 9:25 PM UNIVERSITY ADMINISTRATIVE ASSISTANT) CALCIUM 8.7 8.4 - 10.5 mg/dL LAB Blood specimen (specimen) 05/29/2008 9:25 PM UNIVERSITY ADMINISTRATIVE ASSISTANT 05/29/2008 9:50 PM UNIVERSITY ADMINISTRATIVE ASSISTANT us Braulio Nixon MD CHEMISTRY ORDERABLES Final Re sult Performing Organization Address [facility] Phone Number INTERFACE SYSTEM Refer to clinic/hospital [facility] CLIA# [id number] [address] [place] [address] * (ABNORMAL) POC GLUCOSE (05/29/2008 6:35 PM UNIVERSITY ADMINISTRATIVE ASSISTANT) GLUCOSE POC 104(H) 60 - 100 mg/dL LAB Venous blood specimen (specimen) 05/29/2008 6:35 PM UNIVERSITY ADMINISTRATIVE ASSISTANT 05/30/2008 5:50 AM UNIVERSITY ADMINISTRATIVE ASSISTANT Braulio Nixon MD POINT OF CARE TESTING Final R esult Performing Organization Address [facility] de Phone Number INTERFACE SYSTEM Refer to clinic/hospital department LAB CLIA# [id number] [address] [place] [address] * (ABNORMAL) POC GLUCOSE (05/29/2008 6:48 AM UNIVERSITY ADMINISTRATIVE ASSISTANT) GLUCOSE POC 201(H) 60 - 100 mg/dL LAB Venous blood specimen (specimen) 05/29/2008 6:48 AM UNIVERSITY ADMINISTRATIVE ASSISTANT 05/29/2008 6:58 AM UNIVERSITY ADMINISTRATIVE ASSISTANT Braulio Nixon MD POINT OF CARE TESTING Final R esult Performing Organization Address [facility] Phone Number INTERFACE SYSTEM Refer to clinic/hospital department LAB CLIA# [id number] [address] [place] [address] * PATHOLOGY (05/29/2008 6:34 AM UNIVERSITY ADMINISTRATIVE ASSISTANT) PATHOLOGY/CYT OLOGY REPORT [facility] Anatomic Pathology Dept [address] [place] [id number] Patient: FELICITAS HENSON Accn No: [id number] Collected: 05/29/2008 6:34:00 AM SURGICAL PATHOLOGY FINAL REPORT Diagnosis A. Thyroid, total thyroidectomy - four papillary microcarcinomas (three in right lobe measuring 0.6, 0.8 and 0.8 cm and one in the left lobe measuring 0.1 cm in greatest dimensions - one benign lymph node within specimen with no tumor present - nodular hyperplasia. Diagnostic Summary Histologic Type: Papillary microcarcinoma. Note: There are four papillary microcarcinomas. Three are located in the right lobe measuring 0.6 x 0.8 and 0.8 cm in greatest dimensions. One is located in the left lobe measuring 0.1 cm in greatest dimension. STAGING INFORMATION Primary Tumor: pT1 (tumor size 2 cm or less, limited to the thyroid) Regional Lymph Nodes: pNX cannot be assessed Note: There is one parathyroidal lymph node in section A1 with no tumor present Distant Metastasis: pMX cannot be assessed Margins: Uninvolved by carcinoma Douglas Cisneros M.D. (Electronically signed by) Verified: 06/02/08 DD /CEP Clinical Information Toxic multinodular goiter. Specimen Source AThyroid Microscopic Description Microscopic examination was performed. Gross Description Part A. Submitted in a container of formalin labelled Davide, #1 thyroid, stitch henry right inferior lobe is a reddish-brown thyroidectomy specimen measuring 6.8 x 4 x 5.8 cm and weighs 52 grams. A suture is present on one lobe, this designating right inferior. The surgical margin is marked with blue ink. Sectioning of the right lobe reveals two yellowish-brown calcified nodules measuring up to 1.2 cm in diameter. Multiple pinkish-brown nodules are identified measuring up to 1 cm in diameter and three cyst cavities are seen measuring up to 1.1 cm in diameter. Sectioning of the left lobe reveals a grayish-white, firm, well circumscribed nodule measuring 0.6 cm in diameter. A pinkish-brown hemorrhagic nodule is identified measuring 1.5 cm in diameter. Sectioning of the isthmus reveals three pinkish-brown nodules measuring up to 0.4 cm in diameter. Cassette Summary: A1-A28 - entire right lobe A29 - entire isthmus A30-A47 - entire left lobe A48-A52 - calcified nodules from right lobe following light decalcification. Gross Summary Specimen Type: Total thyroidectomy Tumor Site: Right and left lobes Tumor Focality: Multifocal Tumor Size (largest nodule): 0.8 cm DLS/TKB INTERFACE SYSTEM 05/29/2008 6:34 AM UNIVERSITY ADMINISTRATIVE ASSISTANT us Braulio Nixon MD PATHOLOGY/CYTOLOGY ORDERABLES Final Result INTERFACE SYSTEM Refer to clinic/hospital department documented in this encounter Visit Diagnoses Not on filedocumented in this encounter
--- OUTSIDE RECORDS SUMMARY | 2025-02-26 13:18 | XMS_ITS | Clinical Summary ---
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 Social History Tobacco Use Types Packs/Day Years Used Date Smoking Tobacco: Former Cigarettes Q uit: 10/10/1998 Alcohol Use Standard Drinks/Week Comments No 0 (1 standard drink = 0.6 oz pur e alcohol) Comments Unknown Sex and Gender Information Value Date Recorded Sex Assigned at Not on file Legal Sex Female 6:41 AM SKILLS TRAINER Gender Identity Not on file Sexual Orientation Not on file Plan of Treatment Health Maintenance Due Date Last Done Comments DTAP/TDAP/TD VACCINES (1 - Tdap) 1961 PNEUMOCOCCAL VACCINE 50+ YEARS (1 of 1 - PCV) 03/19/19 92 ZOSTER VACCINE (1 of 2) 1992 OSTEOPOROSIS SCREENING 2007 RSV VACCINE (60+ or ) (1 - 1-dose 75+ series) 2017 INFLUENZA VACCINE (#1) 2025 Medical Devices Implanted Type Area Electrical Instrument Maker Device Identifier Shelf Expiration Date Model / Serial / Lot Sn/A - [id number] Implanted:Qty : 1 on 10/30/2008 Biological Bilateral : Vocal Cord [employer] 04/09/2010 [id number] / N/A / [id number] Description:Radiesse Voice 1 ml injected bilateral vocal cords.
--- OUTSIDE RECORDS SUMMARY | 2025-02-26 13:19 | XMS_ITS | Clinical Summary ---
Author Organization [facility] Address [address] [place] [address] Care Team Providers Care Jigsaw Operator Name Role Phone Unavailable Primary Care Provider Unavailabl e Allergies Active Allergy Reactions Criticality Noted Date Comments Pneumococcal Vaccine Swelling Low 10/10/2008 Medications ACETAMINOPHEN 500 mg Oral Tab Take 500 mg by mouth daily. Takes 1/2 tab Active COMBIVENT IN Take by inhalation. Takes 2 puffs daily as directed Active LEVOTHYROXINE 100 mcg Oral Tab Take 100 mcg by mouth daily. Active metFORMIN (GLUCOPHAGE) 500 mg Oral tablet Take 500 mg by mouth 3 times daily. 2 tabs Active glipiZIDE (GLUCOTROL) 5 mg Oral tablet Take 5 mg by mouth. 1-2 tabs with meals Active meloxicam (MOBIC) 15 mg Oral tablet Take 15 mg by mouth daily. Active simvastatin (ZOCOR) 20 mg Oral tablet Take 20 mg by mouth Daily LATE. Active montelukast (SINGULAIR) 10 mg Oral tablet Take 10 mg by mouth daily at bedtime. Active amoxicillin-cla vulanate (AUGMENTIN) 875-125 mg Oral tablet Take 1 Tab by mouth every 12 hours. 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 Social History Tobacco Use Types Packs/Day Years Used Date Smoking Tobacco: Former Cigarettes 0 10/10/1962 - 10/10/1998 Alcohol Use Standard Drinks/Week Comments No 0 (1 standard drink = 0.6 oz pur e alcohol) Comments No Sex and Gender Information Value Date Recorded Sex Assigned at Not on file Legal Sex Female 6:30 AM BARREL BUILDER Gender Identity Not on file Sexual Orientation Not on file Last Filed Vital Signs Vital Sign Reading Time Taken Comments Blood Pressure 140/66 11/08/2012 1:32 PM CDT Pulse 80 11/08/2012 1:32 PM CDT Temperature 36.4 C (97.5 F) 11/08/2012 1:32 PM CDT Respiratory Rate 16 11/08/2012 1:32 PM CDT Oxygen Saturation 97% 11/08/2012 1:32 PM CDT Inhaled Oxygen Concentration - - Weight 62.8 kg (138 lb 8 oz) 11/08/2012 1:32 PM CDT Height 162.6 cm (5' 4 ) 11/08/2012 1:32 PM CDT Body Mass Index 23.77 11/08/2012 1:32 PM CDT Plan of Treatment Health Maintenance Due Date Last Done Comments DIABETES ANNUAL FOOT EXAM 1960 DIABETES ANNUAL RETINAL EXAM 1960 DIABETES MICROALBUMIN ANNUAL SCREEN 1960 LDL CHOLESTEROL ANNUAL 1960 PNEUMOCOCCAL VACCINE 50+ YEA RS (1 of 2 - PCV) 1961 ZOSTER VACCINE (1 of 2) 1992 OSTEOPOROSIS SCREENING 2007 RSV VACCINE (60+ or ) (1 - 1-dose 75+ series) 2017 DTAP/TDAP/TD VACCINES (1 - Tdap) 05/10/2017 05/09/20 17 DIABETES HBA1C Q 6 MONTHS 09/04/2019 03/04/2019, INFLUENZA VACCINE (#1) 2025 Medical Devices Implanted Type Area Aircraft Systems Repairer Device Identifier Shelf Expiration Date Model / Serial / Lot Sn/A - [id number] Implanted:Qty: 1 on 10/30/2008 at [facility] Biological Bilateral : Vocal Cord [employer] 04/09/2010 [id number] / N/A / [id number] Description:Radiesse Voice 1 ml injected bilateral vocal cords. Procedures Procedure Name Priority Date/Time Associated Diagnosis Comments HEMOGLOBIN A1C Routine 04/30/2008 from Last 3 Months or Most Recently Relevant to Health Maintenance Results * HEMOGLOBIN A1C (04/30/2008) Blood specimen (specimen) us Historical Provider CHEMISTRY ORDERABLES Final R esult [facility] [place] [facility] [address] [place] [address] from Last 3 Months or Most Recently Relevant to Health Maintenance Insurance MEDICARE PART A AND B Advance Directives For more information, please contact: [phone] * Full Code (Latest Code Status on File) Date Activated Date Inactivated Comments 10/30/2008 10:52 AM 10/31/2008 2:02 AM * Full Code Date Activated Date Inactivated Comments 10/30/2008 9:41 AM 10/30/2008 10:52 AM * Full Code Date Activated Date Inactivated Comments 10/30/2008 7:16 AM 10/30/2008 9:41 AM
[2025-02-26 13:39] LABS: Hematocrit 32.6 % (36-47); Hemoglobin 10.10 g/dL (11.27-16.99); Mean Corpuscular HGB Conc 31.0 g/dL (30-55); Mean Corpuscular Hemoglobin 29.2 pg (27-33); Mean Corpuscular Volume 94.2 fl (85-98); Platelet Count 163 10^3/cmm (157-399); Red Blood Count 3.46 10^6/uL (3.85-5.65)
[2025-02-26 13:43] VITALS: BP 129/65; PULSE 70; RESP 16; TEMP 36.7; O2SAT 96
[2025-02-26 13:58] LABS: Slide Review Slide Review Perform; White Blood Count 76.00 10^3/uL (3.29-11.43)
[2025-02-26 13:59] LABS: Absolute Segmented Neutrophil 1.5 10/cmm (1.6-7.1); Atypical Lymphs 25.0 % (0-5); Band Neutrophils Absolute 0.0 10^3/cmm (0.0-1.2); Smudge Cells 1+; Total Cells Counted 100 (0-100)
[2025-02-26 14:06] LABS: Alanine Aminotransferase 14 U/L (0-33); Albumin Level 3.9 g/dL (3.5-5.2); Alkaline Phosphatase 70 U/L (35-105); Anion Gap 14.9 (5-19); Aspartate Amino Transferase 19 U/L (0-32); Blood Urea Nitrogen 11 mg/dL (8-23); Calcium 8.6 mg/dL (8.5-10.5); Carbon Dioxide 26 mmol/L (22-29); Chloride 109 mmol/L (98-107); Globulin 2.3 g/dL (1.3-4.6); Glucose 75 mg/dL (65-115); NT Pro B Type Natriuretic Pept 314 pg/mL (0-450); Osmolality Calculated 300 mOsm/kg (285-295); Potassium 3.9 mmol/L (3.5-5.1); Sodium 146 mmol/L (136-145); Total Protein 6.2 g/dL (6.6-8.7)
[2025-02-26 16:04] VITALS: BP 149/107; PULSE 77; RESP 24; O2SAT 94
--- NOTE | 2025-02-26 16:09 | ECG_ITS ---
[facility] Test Date: 2025-02-26 Pat Name: Felicitas Augustine Department: Room: Gender: Female [employer]: : 1940 Requested By: Amilcar Stout Order Number: [id number] Karma MD: Colby Coello M.D. Measurements Intervals [place] Rate: 64 P: -67 NC: 101 QRS: -15 QRSD: 89 T: 33 QT: 417 QTc: 431 Interpretive Statements ECTOPIC ATRIAL RHYHTM LOW QRS VOLTAGE IN PRECORDIAL LEADS [QRS DEFLECTION < 1.0 mV IN CHEST LEADS] Compared to ECG 09/25/2024 23:50:35 Atrial-paced complex(es) or rhythm no longer present Left-axis deviation no longer present Intraventricular conduction delay no longer present Electronically Signed On 03-01-2025 08:51:49 CDT by Colby Coello M.D. [id number]
--- NOTE | 2025-02-26 16:30 | CTR_ITS ---
PROCEDURE INFORMATION: Exam: CT Abdomen And Pelvis Without Contrast Exam date and time: 02/26/2025 4:38 PM Age: 84 years old Clinical indication: Abdominal pain; Flank; Left TECHNIQUE: Imaging protocol: Computed tomography of the abdomen and pelvis without contrast. Radiation optimization: All CT scans at this facility use at least one of these dose optimization techniques: automated exposure control; mA and/or kV adjustment per patient size (includes targeted exams where dose is matched to clinical indication); or iterative reconstruction. COMPARISON: CT abdomen pelvis w con* [id number] 08/01/2022 1:15 PM RADIATION DOSE METRICS: Total DLP (mGy-cm): 586.08 FINDINGS: Lungs: Stable scarring in the right middle lobe. Pleural spaces: Small left pleural effusion. Liver: Unremarkable unenhanced appearance of the liver. Gallbladder and biliary ducts: The gallbladder is surgically absent. No biliary ductal dilation. Pancreas: Normal. No ductal dilation. Spleen: Splenomegaly measuring up to 14.7 cm. Adrenal glands: 1.1 x 0.9 cm left adrenal adenoma. Kidneys and ureters: No hydronephrosis. Nonobstructing left renal stones. No stones along the course of the ureters. Stomach and bowel: Unremarkable. No obstruction. No mucosal thickening. Appendix: There has been an appendectomy. 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 No free air. No significant fluid collection. Vasculature: Atherosclerosis. No abdominal aortic aneurysm. Lymph nodes: Similar retroperitoneal, inguinal and pelvic adenopathy, for example a left periaortic node measuring 1.0 cm, a right pelvic sidewall node measuring 1.5 cm in short axis and a right inguinal node measuring 1.5 cm in short axis. Urinary bladder: The urinary bladder is decompressed. Reproductive: Unremarkable as visualized. Bones/joints: Unremarkable. No acute fracture. Soft tissues: Unremarkable. CT/CT abdomen pelvis wo con [id number] IMPRESSION: 1. No acute process in the abdomen or pelvis. 2. Similar degree of retroperitoneal, inguinal and pelvic adenopathy COMMENTS: Consistent with the [employer]'s Incidental Findings Committee white paper (J Am Joel Radiol 2017): For any incidental adrenal lesion greater than or equal to 1 cm but less than or equal to 4 cm classified in this report as benign, likely benign, or containing fat (including classification as an adenoma or myelolipoma), no follow-up imaging is recommended per consensus recommendations based on imaging criteria. Further lab evaluation could be pursued if warranted based on clinical findings.
--- NOTE | 2025-02-26 16:38 | W.ED.ABDPA2 ---
Documented by User: Israel Garza DO 03/03/25 12:14 HPI - Abdominal Pain General: Chief Complaint: Abdominal Pain Stated Complaint: kidney issues breathing issues Time Seen by Provider: 02/26/25 16:01 History of Present Illness: 84-year-old female presents emergency room complaining of right flank pain and some abdominal pain going on for 3 days. Patient has chronic lymphocytic leukemia. She has a history of UTIs in the past. She denies any fever she has been very nauseous. No vomiting. No chest pain no shortness of breath. Associated Symptoms: Reports nausea; Denies chills, diarrhea, dysuria, fever(s) and vomiting Related Data Home Medications ?Medication ?Instructions ?Recorded ?Confirmed aspirin 81 mg tablet,delayed 81 mg PO QAM 08/09/23 02/11/25 release cascara sagrada 500 mg capsule 500 mg PO BEDTIME PRN Constipation 09/05/23 02/11/25 cholecalciferol (vitamin D3) 125 5,000 unit PO QAM 09/05/23 02/11/25 mcg (5,000 unit) tablet (Vitamin D3) cranberry concentrate-ascorbic 1 cap PO QAM 09/05/23 02/11/25 acid 140 mg-100 mg capsule (Cranberry Plus Vitamin C) tolterodine 2 mg tablet 2 mg PO QAM 09/05/23 02/11/25 Previous Rx's ?Medication ?Instructions ?Recorded Power chair repair #1 ea 09/27/22 albuterol sulfate 2.5 mg/3 mL 2.5 mg (3 mL) inhalation QID PRN 02/23/23 (0.083 %) solution for nebulization shortness of breath or wheezing #360 mL diazepam 2 mg tablet (Valium) 2 mg PO TID PRN muscle spasm #90 03/05/24 tabs flash glucose scanning reader #1 ea 04/08/24 (FreeStyle [place] 2 [place]) [id number] Power Chair with lift #1 ea 04/21/24 Roho Wheelchair Coushion [id number] #1 ea 04/21/24 albuterol sulfate 90 mcg/actuation 2 puff inhalation QID PRN 04/21/24 aerosol inhaler Shortness Of Breath #6.7 grams insulin aspart U-100 100 unit/mL See Rx Instructions SUBCUT TID #15 04/21/24 (3 mL) subcutaneous pen (Novolog mL FlexPen U-100 Insulin aspart) nitroglycerin 0.4 mg sublingual 0.4 mg sublingual Q5M PRN chest 09/23/24 tablet pain 30 days #30 tabs omeprazole 20 mg capsule,delayed 20 mg PO DAILY #30 caps 09/26/24 release levothyroxine 100 mcg tablet 100 mcg PO QAM #90 tabs 10/16/24 isosorbide mononitrate 30 mg 30 mg PO DAILY #90 tabs 10/17/24 tablet,extended release 24 hr clopidogrel 75 mg tablet (Plavix) 75 mg PO DAILY #90 tabs 11/16/24 budesonide 160 mcg-glycopyr 9 2 inh inhalation BID PRN Shortness 12/11/24 mcg-formot 4.8 mcg/actuation HFA Of Breath #10.7 grams inhaler (Breztri Aerosphere) cyclobenzaprine 10 mg tablet 10 mg PO .at bedtime #90 tabs 12/11/24 flash glucose sensor (FreeStyle #7 ea 12/11/24 William 2 Sensor kit) furosemide 20 mg tablet 20 mg PO QAM #90 tabs 12/11/24 insulin glargine U-300 conc 300 40 unit (0.1333 mL) SUBCUT DAILY 12/11/24 unit/mL (3 mL) subcutaneous pen #12 mL (Toujeo Max U-300 SoloStar) lidocaine 5 % topical patch 1 patch topical [id number] #90 ea 12/11/24 simvastatin 20 mg tablet 20 mg PO BEDTIME #90 tabs 12/11/24 prednisone 10 mg tablet See Rx Instructions PO .COMPLEX 01/13/25 PRN joint pain #30 tabs prednisone 5 mg tablet 5 mg PO DAILY #90 tabs 01/13/25 ciprofloxacin HCl 500 mg tablet 500 mg PO BID #20 tabs 02/26/25 (Cipro) Allergies Allergy/AdvReac Type Severity Reaction Status Date / Time pneumococcal vaccine Allergy ALGY-Rash Verified 02/11/25 12:04 Sulfa (Sulfonamide Allergy RASH Verified 02/11/25 12:04 Antibiotics) Review of Systems Const: Denies: fever(s) or chills Card: Denies: chest pain Resp: Denies: dyspnea GI: Reports: abdominal pain and nausea; Denies: vomiting or diarrhea : Reports: flank pain; Denies: dysuria, urinary frequency or urinary urgency Musc: Denies: neck pain or back pain Skin/Breast: Denies: rash PFSH ED PFSH: Medical History High risk medication use Seropositive rheumatoid arthritis of multiple sites Generalized weakness Atherosclerosis of [place] coronary artery without angina pectoris (~10/29/24) Chronic lymphocytic leukemia Urolithiasis Left ureteral calculus Myasthenia gravis UTI (urinary tract infection) Diabetes mellitus with hyperglycemia, with long-term current use of insulin Environmental and seasonal allergies Essential hypertension, benign Pneumonia Hyperlipidemia Vitamin D deficiency Vitamin B 12 deficiency COPD (chronic obstructive pulmonary disease) Depression with anxiety Hypothyroidism Neuropathy Surgical History History of basal cell carcinoma (BCC) excision History of hysterectomy with bilateral oophorectomy For cervical cancer History of appendectomy History of colonoscopy with polypectomy (11/17/21) Pacemaker 04/05/2019 H/O thyroidectomy Total thyroidectomy followed by radioactive iodine ablation for thyroid cancer H/O reduction of closed fracture left wrist 10/23/2015 Hx of cholecystectomy H/O brain surgery Craniotomy x 4 for meningioma H/O esophagogastroduodenoscopy (11/17/21) 2013 Family History Mother , AT 92 Anesthesia complication CAD (coronary artery disease) Cancer Dementia Stroke Brother CAD (coronary artery disease) Cancer Suicide Sister CAD (coronary artery disease) Suicide Grandmother Cancer Dementia Stroke Family/Other Cancer Dementia Stroke Brother Suicide Brother Suicide Father , IN HIS 60'S Alcoholic Liver disease Denies family history of Diabetes Clotting disorder Chronic kidney disease (CKD) Bleeding disorder Lung disease Social History Smoking and tobacco/nicotine status: former use of tobacco/nicotine Quit status (tobacco/nicotine): has quit using Year quit tobacco: 1997 Former quit date comment: 1 ppd X 45 years Second hand smoke exposure: No Alcohol intake: unknown Substance/Drug Use: unknown Adopted: No Caregiver/support person: Yes Lives independently: No Household members: family Housing: House Marital status: / Number of children: 2 service: No Current occupational status: retired Current occupational exposures/hazards: No Do you think of yourself as: Straight/Heterosexual Physical Exam Const: GENERAL APPEARANCE: cooperative ORIENTATION/CONSCIOUSNESS: Yes awake, Yes oriented to person, Yes oriented to place and Yes oriented to time HENMT: COMMON NORMALS: normocephalic, atraumatic and hearing grossly normal bilaterally HEAD & SCALP: normocephalic and atraumatic Resp: COMMON NORMALS: normal respiratory effort, No retractions, No use of accessory muscles and clear to auscultation bilaterally AUSCULTATION: clear to auscultation bilaterally Cardio: COMMON NORMALS: regular rate, regular rhythm and No murmurs present (Cardio) RATE: regular rate RHYTHM: regular rhythm GI: COMMON NORMALS: Soft to palpation and No hepatosplenomegaly present AUSCULTATION: Yes normoactive bowel sounds PALPATION: Yes Soft to palpation, No Tenderness to palpation present (GI), No Guarding due to palpation present (GI) and Yes No hepatosplenomegaly present Extremity: COMMON NORMALS: normal to inspection, capillary refill normal, no clubbing, cyanosis or edema, no calf tenderness and no pedal edema Neuro: SENSORIUM/ORIENTATION: Yes oriented to person, Yes oriented to place and Yes oriented to time Skin: COMMON NORMALS: no rashes or lesions noted GENERAL SKIN EXAM: no rashes or lesions noted Course Vital Signs: Vital signs: Vital Signs Temperature 98.0 F 02/26/25 13:43 Pulse Rate 68 02/26/25 20:08 Respiratory Rate 16 02/26/25 20:08 Blood Pressure 152/62 02/26/25 20:08 Pulse Oximetry 92 02/26/25 20:08 Oxygen Delivery Me thod Room Air 02/26/25 18:11 Oxygen Flow Rate 4 02/26/25 16:48 MDM - Abdominal Pain Medical Decision Making Care signed out to Dr. Sexton at change of shift. See final notes for diagnosis and disposition. I assumed care of this patient at shift change. I assumed care of this patient at shift change.Urinalysis was pending. That has been completed and patient does appear to have a urinary tract infection. She was given 1 g of Rocephin IV. She was subsequently discharged in stable condition with a prescription for ciprofloxacin 500 mg p.o. twice daily for 10 days. Recommended she follow-up with her primary care provider next week for recheck. Lab Data 02/26/25 13:25 02/26/25 13:25 Labs/Radiology: Radiology Impressions Chest X-Ray 02/26/25 13:08 Impression: Atherosclerosis and hyperinflation. Abdomen/Pelvis CT 02/26/25 16:30 IMPRESSION: 1. No acute process in the abdomen or pelvis. 2. Similar degree of retroperitoneal, inguinal and pelvic adenopathy COMMENTS: Consistent with the [employer]'s Incidental Findings Committee white paper (J Am Joel Radiol 2017): For any incidental adrenal lesion greater than or equal to 1 cm but less than or equal to 4 cm classified in this report as benign, likely benign, or containing fat (including classification as an adenoma or myelolipoma), no follow-up imaging is recommended per consensus recommendations based on imaging criteria. Further lab evaluation could be pursued if warranted based on clinical findings. Laboratory Results WBC 76.00 10^3/uL (3.29-11.43) H* 02/26/25 13:25 RBC 3.46 10^6/uL (3.85-5.65) L 02/26/25 13:25 Hgb 10.10 g/dL (11.27-16.99) L 02/26/25 13:25 Hct 32.6 % (36-47) L 02/26/25 13:25 MCV 94.2 fl (85-98) 02/26/25 13:25 MCH 29.2 pg (27-33) 02/26/25 13:25 MCHC 31.0 g/dL (30-55) 02/26/25 13:25 RDW 15.7 % (12.1-15.1) H 02/26/25 13:25 Plt Count 163 10^3/cmm (157-399) 02/26/25 13:25 MPV 8.5 fL (7.4-10.4) 02/26/25 13:25 Lymph % (Auto) Not Reportable 02/26/25 13:25 [place] % (Auto) Not Reportable 02/26/25 13:25 Lymph # (Auto) Not Reportable 02/26/25 13:25 [place] # (Auto) Not Reportable 02/26/25 13:25 Total Counted 100 (0-100) 02/26/25 13:25 Atypical Lymphs % 25.0 % (0-5) H 02/26/25 13:25 Absolute Neutrophils 1.5 10^3/cmm (1.4-6.5) 02/26/25 13:25 Segmented Neutrophils 2 % 02/26/25 13:25 Band Neutrophils 0.0 % 02/26/25 13:25 Absolute Lymphocytes 74.5 10^3/cmm (1.2-3.4) H 02/26/25 13:25 Lymphocytes (Manual) 73 % 02/26/25 13:25 Monocytes (Manual) 0.0 % 02/26/25 13:25 Absolute Monocytes 0.0 10^3/cmm (0.1-0.6) L 02/26/25 13:25 Eosinophils (Manual) 0 % 02/26/25 13:25 Absolute Eosinophils 0.0 10^3/cmm (0.0-0.7) 02/26/25 13:25 Basophils (Manual) 0.0 % 02/26/25 13:25 Absolute Basophils 0.0 10^3/cmm (0.0-0.2) 02/26/25 13:25 Smudge Cells 1+ H 02/26/25 13:25 Platelet Estimate Normal (Normal) 02/26/25 13:25 Sodium 146 mmol/L (136-145) H 02/26/25 13:25 Potassium 3.9 mmol/L (3.5-5.1) 02/26/25 13:25 Chloride 109 mmol/L (98-107) H 02/26/25 13:25 Carbon Dioxide 26 mmol/L (22-29) 02/26/25 13:25 Anion Gap 14.9 (5-19) 02/26/25 13:25 BUN 11 mg/dL (8-23) 02/26/25 13:25 Creatinine 0.7 mg/dL (0.5-0.9) 02/26/25 13:25 GFR Calculation Not Reportable 02/26/25 13:25 Glucose 75 mg/dL (65-115) 02/26/25 13:25 Calculated Osmolality 300 mOsm/kg (285-295) H 02/26/25 13:25 Calcium 8.6 mg/dL (8.5-10.5) 02/26/25 13:25 Total Bilirubin 0.3 mg/dL (0.15-1.2) 02/26/25 13:25 AST 19 U/L (0-32) 02/26/25 13:25 ALT 14 U/L (0-33) 02/26/25 13:25 Alkaline Phosphatase 70 U/L (35-105) 02/26/25 13:25 NT-Pro-B Natriuret Pep 314 pg/mL (0-450) 02/26/25 13:25 Total Protein 6.2 g/dL (6.6-8.7) L 02/26/25 13:25 Albumin 3.9 g/dL (3.5-5.2) 02/26/25 13:25 Globulin 2.3 g/dL (1.3-4.6) 02/26/25 13:25 Urine Color Yellow (Yellow) 02/26/25 18:35 Urine Appearance Clear (CLEAR) 02/26/25 18:35 Urine pH 5.0 (5-7) 02/26/25 18:35 Ur Specific [place] 1.021 (1.005-1.030) 02/26/25 18:35 Urine Protein Trace (Negative) A 02/26/25 18:35 Urine Glucose (UA) Negative (Normal) 02/26/25 18:35 Urine Ketones Negative (Negative) 02/26/25 18:35 Urine Blood Negative (Negative) 02/26/25 18:35 Urine Nitrate Positive (Negative) A 02/26/25 18:35 Urine Bilirubin Negative (Negative) 02/26/25 18:35 Urine Urobilinogen 1.0 mg/dL (Negative) 02/26/25 18:35 Ur Leukocyte Esterase 1+ (Negative) A 02/26/25 18:35 Urine RBC 0-2 /hpf (0-2) 02/26/25 18:35 Urine WBC 21-50 /hpf (0-5) H 02/26/25 18:35 Ur Squamous Epith Cells 0-5 /hpf (0-5) 02/26/25 18:35 Calcium Oxalate Crystal 5-10 /hpf H 02/26/25 18:35 Amorphous Sediment Not Reportable 02/26/25 18:35 Urine Bacteria 4+ /hpf (NONE) H 02/26/25 18:35 Hyaline Casts 4.11 /lpf 02/26/25 18:35 Discharge Plan Discharge Patient Disposition: Home Clinical Impression: UTI (urinary tract infection) Qualifiers: Urinary tract infection type: site unspecified Hematuria presence: without hematuria Qualified Code(s): N39.0 - Urinary tract infection, site not specified Condition: Stable Prescriptions: New ciprofloxacin HCl [Cipro] 500 mg tablet 500 mg PO BID Qty: 20 0RF No Action albuterol sulfate 2.5 mg /3 mL (0.083 %) solution for nebulization 2.5 mg inhalation QID PRN (Reason: shortness of breath or wheezing) Qty: 360 3RF (DME) Roho Wheelchair Coushion [id number] See Rx Instructions .Route .MEDSUPPLY Qty: 1 0RF Rx Instructions: use in wheelchair or powerchair (DME) [id number] Power Chair with lift See Rx Instructions .Route .MEDSUPPLY Qty: 1 0RF Rx Instructions: use daily for mobility 99 months albuterol sulfate 90 mcg/actuation HFA aerosol inhaler 2 puff INHALATION QID PRN (Reason: Shortness Of Breath) Qty: 6.7 1RF insulin aspart U-100 [Novolog FlexPen U-100 Insulin] 100 unit/mL (3 mL) insulin pen See Rx Instructions SUBCUT TID Qty: 15 2RF Rx Instructions: sliding scale bid nitroglycerin 0.4 mg tablet, sublingual 0.4 mg sublingual Q5M PRN (Reason: chest pain) 30 Days Qty: 30 3RF Rx Instructions: until response; do not exceed 3 doses per episode diazepam [Valium] 2 mg tablet 2 mg PO TID PRN (Reason: muscle spasm) Qty: 90 5RF prednisone 10 mg tablet See Rx Instructions PO .COMPLEX PRN (Reason: joint pain) Qty: 30 1RF Rx Instructions: take 1 or 2 tab daily up to 7 days prn joint pain flare PO PRN; prednisone 5 mg tablet 5 mg PO DAILY Qty: 90 1RF Breztri Aerosphere 160-9-4.8 mcg/actuation HFA aerosol inhaler 2 inh inhalation BID PRN (Reason: Shortness Of Breath) Qty: 10.7 1RF cyclobenzaprine 10 mg tablet 10 mg PO .at bedtime Qty: 90 1RF furosemide 20 mg tablet 20 mg PO QAM Qty: 90 1RF insulin glargine U-300 conc [Toujeo Max U-300 SoloStar] 300 unit/mL (3 mL) insulin pen 40 unit SUBCUT DAILY Qty: 12 2RF lidocaine 5 % adhesive patch,medicated 1 patch topical [id number] Qty: 90 1RF simvastatin 20 mg tablet 20 mg PO BEDTIME Qty: 90 1RF (DME) FreeStyle William 2 Sensor Kit See Rx Instructions .ROUTE .MEDSUPPLY Qty: 7 11RF Rx Instructions: change every 14 days (DME) Power chair repair See Rx Instructions .Route .MEDSUPPLY Qty: 1 0RF Rx Instructions: Repair power chair and maintenance (DME) FreeStyle William 2 [place] Misc See Rx Instructions .ROUTE .MEDSUPPLY Qty: 1 0RF Rx Instructions: As directed levothyroxine 100 mcg tablet 100 mcg PO QAM Qty: 90 1RF Rx Instructions: dose increase isosorbide mononitrate 30 mg tablet extended release 24 hr 30 mg PO DAILY Qty: 90 3RF aspirin 81 mg tablet,delayed release (DR/EC) 81 mg PO QAM Cranberry Plus Vitamin C 140-100 mg Capsule 1 cap PO QAM tolterodine 2 mg Tablet 2 mg PO QAM cascara sagrada 500 mg Capsule 500 mg PO BEDTIME PRN (Reason: Constipation) cholecalciferol (vitamin D3) [Vitamin D3] 125 mcg (5,000 unit) Tablet 5,000 unit PO QAM omeprazole 20 mg capsule,delayed release(DR/EC) 20 mg PO DAILY Qty: 30 0RF clopidogrel [Plavix] 75 mg tablet 75 mg PO DAILY Qty: 90 3RF Discharge Orders: Discharge ED (Routine); Ordered 02/26/25 Ordered By: Valerio Sexton Referrals: Adam Anguiano, [facility] [Primary Care Provider, Family Practice] Patient Instructions: Urinary Tract Infection in Women (DC), Patient Portal & Rory Instructions Activity Restrictions/Additional Instructions: Follow up with your PCP next week for recheck. Print Language: Maltese Coding Level of Care Code ED General Ledger Bookkeeper for Chg Fwd Documented by User: Valerio Sexton MD 02/26/25 19:44 HPI - Abdominal Pain General: Chief Complaint: Abdominal Pain Stated Complaint: kidney issues breathing issues Time Seen by Provider: 02/26/25 16:01 Related Data Home Medications ?Medication ?Instructions ?Recorded ?Confirmed aspirin 81 mg tablet,delayed 81 mg PO QAM 08/09/23 02/11/25 release cascara sagr[place] 500 mg capsule 500 mg PO BEDTIME PRN Constipation 09/05/23 02/11/25 cholecalciferol (vitamin D3) 125 5,000 unit PO QAM 09/05/23 02/11/25 mcg (5,000 unit) tablet (Vitamin D3) cranberry concentrate-ascorbic 1 cap PO QAM 09/05/23 02/11/25 acid 140 mg-100 mg capsule (Cranberry Plus Vitamin C) tolterodine 2 mg tablet 2 mg PO QAM 09/05/23 02/11/25 Previous Rx's ?Medication ?Instructions ?Recorded Power chair repair #1 ea 09/27/22 albuterol sulfate 2.5 mg/3 mL 2.5 mg (3 mL) inhalation QID PRN 02/23/23 (0.083 %) solution for nebulization shortness of breath or wheezing #360 mL diazepam 2 mg tablet (Valium) 2 mg PO TID PRN muscle spasm #90 03/05/24 tabs flash glucose scanning reader #1 ea 04/08/24 (FreeStyle [place] 2 [place]) [id number] Power Chair with lift #1 ea 04/21/24 Roho Wheelchair Coushion [id number] #1 ea 04/21/24 albuterol sulfate 90 mcg/actuation 2 puff inhalation QID PRN 04/21/24 aerosol inhaler Shortness Of Breath #6.7 grams insulin aspart U-100 100 unit/mL See Rx Instructions SUBCUT TID #15 04/21/24 (3 mL) subcutaneous pen (Novolog mL FlexPen U-100 Insulin aspart) nitroglycerin 0.4 mg sublingual 0.4 mg sublingual Q5M PRN chest 09/23/24 tablet pain 30 days #30 tabs omeprazole 20 mg capsule,delayed 20 mg PO DAILY #30 caps 09/26/24 release levothyroxine 100 mcg tablet 100 mcg PO QAM #90 tabs 10/16/24 isosorbide mononitrate 30 mg 30 mg PO DAILY #90 tabs 10/17/24 tablet,extended release 24 hr clopidogrel 75 mg tablet (Plavix) 75 mg PO DAILY #90 tabs 11/16/24 budesonide 160 mcg-glycopyr 9 2 inh inhalation BID PRN Shortness 12/11/24 mcg-formot 4.8 mcg/actuation HFA Of Breath #10.7 grams inhaler (Breztri Aerosphere) cyclobenzaprine 10 mg tablet 10 mg PO .at bedtime #90 tabs 12/11/24 flash glucose sensor (FreeStyle #7 ea 12/11/24 William 2 Sensor kit) furosemide 20 mg tablet 20 mg PO QAM #90 tabs 12/11/24 insulin glargine U-300 conc 300 40 unit (0.1333 mL) SUBCUT DAILY 12/11/24 unit/mL (3 mL) subcutaneous pen #12 mL (Toujeo Max U-300 SoloStar) lidocaine 5 % topical patch 1 patch topical [id number] #90 ea 12/11/24 simvastatin 20 mg tablet 20 mg PO BEDTIME #90 tabs 12/11/24 prednisone 10 mg tablet See Rx Instructions PO .COMPLEX 01/13/25 PRN joint pain #30 tabs prednisone 5 mg tablet 5 mg PO DAILY #90 tabs 01/13/25 ciprofloxacin HCl 500 mg tablet 500 mg PO BID #20 tabs 02/26/25 (Cipro) Allergies Allergy/AdvReac Type Severity Reaction Status Date / Time pneumococcal vaccine Allergy ALGY-Rash Verified 02/11/25 12:04 Sulfa (Sulfonamide Allergy RASH Verified 02/11/25 12:04 Antibiotics) PFSH ED PFSH: Medical History High risk medication use Seropositive rheumatoid arthritis of multiple sites Generalized weakness Atherosclerosis of [place] coronary artery without angina pectoris (~10/29/24) Chronic lymphocytic leukemia Urolithiasis Left ureteral calculus Myasthenia gravis UTI (urinary tract infection) Diabetes mellitus with hyperglycemia, with long-term current use of insulin Environmental and seasonal allergies Essential hypertension, benign Pneumonia Hyperlipidemia Vitamin D deficiency Vitamin B 12 deficiency COPD (chronic obstructive pulmonary disease) Depression with anxiety Hypothyroidism Neuropathy Surgical History History of basal cell carcinoma (BCC) excision History of hysterectomy with bilateral oophorectomy For cervical cancer History of appendectomy History of colonoscopy with polypectomy (11/17/21) Pacemaker 04/05/2019 H/O thyroidectomy Total thyroidectomy followed by radioactive iodine ablation for thyroid cancer H/O reduction of closed fracture left wrist 10/23/2015 Hx of cholecystectomy H/O brain surgery Craniotomy x 4 for meningioma H/O esophagogastroduodenoscopy (11/17/21) 2013 Family History Mother , AT 92 Anesthesia complication CAD (coronary artery disease) Cancer Dementia Stroke Brother CAD (coronary artery disease) Cancer Suicide Sister CAD (coronary artery disease) Suicide Grandmother Cancer Dementia Stroke Family/Other Cancer Dementia Stroke Brother Suicide Brother Suicide Father , IN HIS 60'S Alcoholic Liver disease Denies family history of Diabetes Clotting disorder Chronic kidney disease (CKD) Bleeding disorder Lung disease Social History Smoking and tobacco/nicotine status: former use of tobacco/nicotine Quit status (tobacco/nicotine): has quit using Year quit tobacco: 1997 Former quit date comment: 1 ppd X 45 years Second hand smoke exposure: No Alcohol intake: unknown Substance/Drug Use: unknown Adopted: No Caregiver/support person: Yes Lives independently: No Household members: family Housing: House Marital status: / Number of children: 2 service: No Current occupational status: retired Current occupational exposures/hazards: No Do you think of yourself as: Straight/Heterosexual Course Vital Signs: Vital signs: Vital Signs Temperature 98.0 F 02/26/25 13:43 Pulse Rate 68 02/26/25 20:08 Respiratory Rate 16 02/26/25 20:08 Blood Pressure 152/62 02/26/25 20:08 Pulse Oximetry 92 02/26/25 20:08 Oxygen Delivery Me thod Room Air 02/26/25 18:11 Oxygen Flow Rate 4 02/26/25 16:48 MDM - Abdominal Pain Medical Decision Making I assumed care of this patient at shift change. I assumed care of this patient at shift change.Urinalysis was pending. That has been completed and patient does appear to have a urinary tract infection. She was given 1 g of Rocephin IV. She was subsequently discharged in stable condition with a prescription for ciprofloxacin 500 mg p.o. twice daily for 10 days. Recommended she follow-up with her primary care provider next week for recheck. Lab Data 02/26/25 13:25 02/26/25 13:25 Labs/Radiology: Radiology Impressions Chest X-Ray 02/26/25 13:08 Impression: Atherosclerosis and hyperinflation. Abdomen/Pelvis CT 02/26/25 16:30 IMPRESSION: 1. No acute process in the abdomen or pelvis. 2. Similar degree of retroperitoneal, inguinal and pelvic adenopathy COMMENTS: Consistent with the [employer]'s Incidental Findings Committee white paper (J Am Joel Radiol 2017): For any incidental adrenal lesion greater than or equal to 1 cm but less than or equal to 4 cm classified in this report as benign, likely benign, or containing fat (including classification as an adenoma or myelolipoma), no follow-up imaging is recommended per consensus recommendations based on imaging criteria. Further lab evaluation could be pursued if warranted based on clinical findings. Laboratory Results WBC 76.00 10^3/uL (3.29-11.43) H* 02/26/25 13:25 RBC 3.46 10^6/uL (3.85-5.65) L 02/26/25 13:25 Hgb 10.10 g/dL (11.27-16.99) L 02/26/25 13:25 Hct 32.6 % (36-47) L 02/26/25 13:25 MCV 94.2 fl (85-98) 02/26/25 13:25 MCH 29.2 pg (27-33) 02/26/25 13:25 MCHC 31.0 g/dL (30-55) 02/26/25 13:25 RDW 15.7 % (12.1-15.1) H 02/26/25 13:25 Plt Count 163 10^3/cmm (157-399) 02/26/25 13:25 MPV 8.5 fL (7.4-10.4) 02/26/25 13:25 Lymph % (Auto) Not Reportable 02/26/25 13:25 [place] % (Auto) Not Reportable 02/26/25 13:25 Lymph # (Auto) Not Reportable 02/26/25 13:25 [place] # (Auto) Not Reportable 02/26/25 13:25 Total Counted 100 (0-100) 02/26/25 13:25 Atypical Lymphs % 25.0 % (0-5) H 02/26/25 13:25 Absolute Neutrophils 1.5 10^3/cmm (1.4-6.5) 02/26/25 13:25 Segmented Neutrophils 2 % 02/26/25 13:25 Band Neutrophils 0.0 % 02/26/25 13:25 Absolute Lymphocytes 74.5 10^3/cmm (1.2-3.4) H 02/26/25 13:25 Lymphocytes (Manual) 73 % 02/26/25 13:25 Monocytes (Manual) 0.0 % 02/26/25 13:25 Absolute Monocytes 0.0 10^3/cmm (0.1-0.6) L 02/26/25 13:25 Eosinophils (Manual) 0 % 02/26/25 13:25 Absolute Eosinophils 0.0 10^3/cmm (0.0-0.7) 02/26/25 13:25 Basophils (Manual) 0.0 % 02/26/25 13:25 Absolute Basophils 0.0 10^3/cmm (0.0-0.2) 02/26/25 13:25 Smudge Cells 1+ H 02/26/25 13:25 Platelet Estimate Normal (Normal) 02/26/25 13:25 Sodium 146 mmol/L (136-145) H 02/26/25 13:25 Potassium 3.9 mmol/L (3.5-5.1) 02/26/25 13:25 Chloride 109 mmol/L (98-107) H 02/26/25 13:25 Carbon Dioxide 26 mmol/L (22-29) 02/26/25 13:25 Anion Gap 14.9 (5-19) 02/26/25 13:25 BUN 11 mg/dL (8-23) 02/26/25 13:25 Creatinine 0.7 mg/dL (0.5-0.9) 02/26/25 13:25 GFR Calculation Not Reportable 02/26/25 13:25 Glucose 75 mg/dL (65-115) 02/26/25 13:25 Calculated Osmolality 300 mOsm/kg (285-295) H 02/26/25 13:25 Calcium 8.6 mg/dL (8.5-10.5) 02/26/25 13:25 Total Bilirubin 0.3 mg/dL (0.15-1.2) 02/26/25 13:25 AST 19 U/L (0-32) 02/26/25 13:25 ALT 14 U/L (0-33) 02/26/25 13:25 Alkaline Phosphatase 70 U/L (35-105) 02/26/25 13:25 NT-Pro-B Natriuret Pep 314 pg/mL (0-450) 02/26/25 13:25 Total Protein 6.2 g/dL (6.6-8.7) L 02/26/25 13:25 Albumin 3.9 g/dL (3.5-5.2) 02/26/25 13:25 Globulin 2.3 g/dL (1.3-4.6) 02/26/25 13:25 Urine Color Yellow (Yellow) 02/26/25 18:35 Urine Appearance Clear (CLEAR) 02/26/25 18:35 Urine pH 5.0 (5-7) 02/26/25 18:35 Ur Specific [place] 1.021 (1.005-1.030) 02/26/25 18:35 Urine Protein Trace (Negative) A 02/26/25 18:35 Urine Glucose (UA) Negative (Normal) 02/26/25 18:35 Urine Ketones Negative (Negative) 02/26/25 18:35 Urine Blood Negative (Negative) 02/26/25 18:35 Urine Nitrate Positive (Negative) A 02/26/25 18:35 Urine Bilirubin Negative (Negative) 02/26/25 18:35 Urine Urobilinogen 1.0 mg/dL (Negative) 02/26/25 18:35 Ur Leukocyte Esterase 1+ (Negative) A 02/26/25 18:35 Urine RBC 0-2 /hpf (0-2) 02/26/25 18:35 Urine WBC 21-50 /hpf (0-5) H 02/26/25 18:35 Ur Squamous Epith Cells 0-5 /hpf (0-5) 02/26/25 18:35 Calcium Oxalate Crystal 5-10 /hpf H 02/26/25 18:35 Amorphous Sediment Not Reportable 02/26/25 18:35 Urine Bacteria 4+ /hpf (NONE) H 02/26/25 18:35 Hyaline Casts 4.11 /lpf 02/26/25 18:35 All radiology interpretation(s) finalized by discharge Discharge Plan Discharge Patient Disposition: Home Clinical Impression: UTI (urinary tract infection) Qualifiers: Urinary tract infection type: site unspecified Hematuria presence: without hematuria Qualified Code(s): N39.0 - Urinary tract infection, site not specified Condition: Stable Prescriptions: New ciprofloxacin HCl [Cipro] 500 mg tablet 500 mg PO BID Qty: 20 0RF No Action albuterol sulfate 2.5 mg /3 mL (0.083 %) solution for nebulization 2.5 mg inhalation QID PRN (Reason: shortness of breath or wheezing) Qty: 360 3RF (DME) [facility] Wheelchair Coushion [id number] See Rx Instructions .Route .MEDSUPPLY Qty: 1 0RF Rx Instructions: use in wheelchair or powerchair (DME) [id number] Power Chair with lift See Rx Instructions .Route .MEDSUPPLY Qty: 1 0RF Rx Instructions: use daily for mobility 99 months albuterol sulfate 90 mcg/actuation HFA aerosol inhaler 2 puff INHALATION QID PRN (Reason: Shortness Of Breath) Qty: 6.7 1RF insulin aspart U-100 [Novolog FlexPen U-100 Insulin] 100 unit/mL (3 mL) insulin pen See Rx Instructions SUBCUT TID Qty: 15 2RF Rx Instructions: sliding scale bid nitroglycerin 0.4 mg tablet, sublingual 0.4 mg sublingual Q5M PRN (Reason: chest pain) 30 Days Qty: 30 3RF Rx Instructions: until response; do not exceed 3 doses per episode diazepam [Valium] 2 mg tablet 2 mg PO TID PRN (Reason: muscle spasm) Qty: 90 5RF prednisone 10 mg tablet See Rx Instructions PO .COMPLEX PRN (Reason: joint pain) Qty: 30 1RF Rx Instructions: take 1 or 2 tab daily up to 7 days prn joint pain flare PO PRN; prednisone 5 mg tablet 5 mg PO DAILY Qty: 90 1RF Breztri Aerosphere 160-9-4.8 mcg/actuation HFA aerosol inhaler 2 inh inhalation BID PRN (Reason: Shortness Of Breath) Qty: 10.7 1RF cyclobenzaprine 10 mg tablet 10 mg PO .at bedtime Qty: 90 1RF furosemide 20 mg tablet 20 mg PO QAM Qty: 90 1RF insulin glargine U-300 conc [Toujeo Max U-300 SoloStar] 300 unit/mL (3 mL) insulin pen 40 unit SUBCUT DAILY Qty: 12 2RF lidocaine 5 % adhesive patch,medicated 1 patch topical [id number] Qty: 90 1RF simvastatin 20 mg tablet 20 mg PO BEDTIME Qty: 90 1RF (DME) FreeStyle William 2 Sensor Kit See Rx Instructions .ROUTE .MEDSUPPLY Qty: 7 11RF Rx Instructions: change every 14 days (DME) Power chair repair See Rx Instructions .Route .MEDSUPPLY Qty: 1 0RF Rx Instructions: Repair power chair and maintenance (DME) FreeStyle William 2 [place] Misc See Rx Instructions .ROUTE .MEDSUPPLY Qty: 1 0RF Rx Instructions: As directed levothyroxine 100 mcg tablet 100 mcg PO QAM Qty: 90 1RF Rx Instructions: dose increase isosorbide mononitrate 30 mg tablet extended release 24 hr 30 mg PO DAILY Qty: 90 3RF aspirin 81 mg tablet,delayed release (DR/EC) 81 mg PO QAM Cranberry Plus Vitamin C 140-100 mg Capsule 1 cap PO QAM tolterodine 2 mg Tablet 2 mg PO QAM [place] 500 mg Capsule 500 mg PO BEDTIME PRN (Reason: Constipation) cholecalciferol (vitamin D3) [Vitamin D3] 125 mcg (5,000 unit) Tablet 5,000 unit PO QAM omeprazole 20 mg capsule,delayed release(DR/EC) 20 mg PO DAILY Qty: 30 0RF clopidogrel [Plavix] 75 mg tablet 75 mg PO DAILY Qty: 90 3RF Discharge Orders: Discharge ED (Routine); Ordered 02/26/25 Ordered By: Valerio Sexton Referrals: Adam Anguiano, PAIRER [facility]-C [Primary Care Provider, Family Practice] Patient Instructions: Urinary Tract Infection in Women (DC), Patient Portal & Rory Instructions Activity Restrictions/Additional Instructions: Follow up with your PCP next week for recheck. Print Language: Maltese Coding Level of Care Code ED General Ledger Bookkeeper for Kina Jackson
[2025-02-26 16:48] VITALS: BP 145/95; RESP 18; O2SAT 95
[2025-02-26 18:11] VITALS: BP 128/108; PULSE 73; RESP 22; O2SAT 96
[2025-02-26] MEDS: HYDROmorphone 0.5 MG/0.5 ML INJ IVP (18:12)
[2025-02-26 18:46] LABS: Glucose Urine UA Negative (Normal); Nitrate Urine Positive (Negative); Specific Gravity, Urine 1.021 (1.005-1.030)
[2025-02-26 18:51] LABS: Add Urine Microscopic? YES
[2025-02-26 19:14] LABS: UA Slide Review UA Slide Review Perf
[2025-02-26] MEDS: cefTRIAXone 1,000 mg SDV 1000 MG IVP (20:00)
[2025-02-26 20:08] VITALS: BP 152/62; PULSE 68; RESP 16; O2SAT 92
== END 2025-02-26 20:10 | disposition home or self-care (01) ==
PROVIDERS: Emergency Medicine; Emergency Provider Emergency Medicine; PCP Nurse Practitioner
DX: N39.0 Urinary tract infection, site not specified (principal); Z79.4 Long term (current) use of insulin; Z79.02 Long term (current) use of antithrombotics/antiplatelets; Z79.82 Long term (current) use of aspirin; Z87.891 Personal history of nicotine dependence; Z95.0 Presence of cardiac pacemaker; J44.9 Chronic obstructive pulmonary disease, unspecified; E11.9 Type 2 diabetes mellitus without complications; E78.5 Hyperlipidemia, unspecified; I25.10 Atherosclerotic heart disease of native coronary artery without angina pectoris; I10 Essential (primary) hypertension
CPT/HCPCS: 36415; 71045; 74176; 80053; 81001; 83880; 85007; 85025; 87077; 87086; 87186; 93005; 96374; 96375; 99285; J0696; J0780; J1171

== ENCOUNTER 2025-03-31 13:15 | Oncology outpatient (recurring) (ONCR) | payer MEDICARE, OTHER, SELFPAY ==
[2025-03-31 11:13] LABS: Hematocrit 35.0 % (36-47); Hemoglobin 10.90 g/dL (11.27-16.99); Mean Corpuscular HGB Conc 31.1 g/dL (30-55); Mean Corpuscular Hemoglobin 28.3 pg (27-33); Mean Corpuscular Volume 90.9 fl (85-98); Platelet Count 171 10^3/cmm (157-399); Red Blood Count 3.85 10^6/uL (3.85-5.65)
[2025-03-31 11:36] LABS: Alanine Aminotransferase 13 U/L (0-33); Albumin Level 4.2 g/dL (3.5-5.2); Alkaline Phosphatase 78 U/L (35-105); Anion Gap 14.9 (5-19); Aspartate Amino Transferase 25 U/L (0-32); Blood Urea Nitrogen 12 mg/dL (8-23); Calcium 9.0 mg/dL (8.5-10.5); Carbon Dioxide 30 mmol/L (22-29); Chloride 101 mmol/L (98-107); Globulin 2.7 g/dL (1.3-4.6); Glucose 119 mg/dL (65-115); Osmolality Calculated 295 mOsm/kg (285-295); Potassium 3.9 mmol/L (3.5-5.1); Sodium 142 mmol/L (136-145); Total Protein 6.9 g/dL (6.6-8.7)
[2025-03-31 12:02] LABS: Slide Review Slide Review Perform
[2025-03-31 12:03] LABS: Absolute Segmented Neutrophil 8.8 10/cmm (1.6-7.1); Atypical Lymphs 62.0 % (0-5); Band Neutrophils Absolute 0.7 10^3/cmm (0.0-1.2); Total Cells Counted 100 (0-100); White Blood Count 73.47 10^3/uL (3.29-11.43)
== END 2025-04-08 23:59 | disposition home or self-care (01) ==
PROVIDERS: PCP Nurse Practitioner; Visit Provider Internal Medicine Medical Oncology
DX: Z53.9 Procedure and treatment not carried out, unspecified reason; C91.10 Chronic lymphocytic leukemia of B-cell type not having achieved remission; M21.611 Bunion of right foot; Z87.891 Personal history of nicotine dependence; G70.00 Myasthenia gravis without (acute) exacerbation
CPT/HCPCS: 36415; 80053; 85007; 85025; 93296; 99214

== ENCOUNTER 2025-04-08 14:08 | Emergency (ER) | payer MEDICARE, OTHER, SELFPAY ==
--- OUTSIDE RECORDS SUMMARY | 2024-05-04 04:00 | XMS_ITS ---
Author Organization [facility] Address [address] [place] [address] Care Team Providers Care Pipeline Engineer Name Role Phone Migration, Provider Unavailable Unavailable REASON FOR VISIT [facility] Encounters Encounter Location Date Provider Diagnosis Migrated_Facility 0 0 05/04/2024 Provider Migration Plan Of Treatment No Information Progress Notes * DALTON HENSON LDOB: [birth year] (85 yo F)Acc No.[id number]:05/04/2024 Patient: Jacinto CEJADALTON :1940 A ge:84 Y S ex:Female Address:[address] [place] [id number] Subjective: * Chief Complaints: * E MR-Indra * * Date:
--- OUTSIDE RECORDS SUMMARY | 2024-05-05 04:00 | XMS_ITS ---
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
--- OUTSIDE RECORDS SUMMARY | 2025-04-08 14:14 | XMS_ITS | Patient Health Record ---
Author Organization [facility] Address [address] [place] [address] Care Team Providers Care Welding Machine Tender Name Role Phone Migration, Provider Unavailable [...]
--- OUTSIDE RECORDS SUMMARY | 2025-04-08 14:14 | XMS_ITS | Encounter Summary ---
Author Organization [facility] Address [address] [place] [address] Care Team Providers Care Wire Coiler Name Role Phone Unavailable Primary Care Provider Unavailabl e Encounter Details Date Type Department Care Team (Late st Contact Info) Description 05/13/2008 Outpatient Historical [facility] [address] [place] [id number] Braulio Nixon MD NO ADDRESS ON FILE Social History Tobacco Use Types Packs/Day Years Used Date Smoking Tobacco: Never Assessed Comments No Sex and Gender Information Value Date Recorded Sex Assigned at Not on file Legal Sex Female 6:30 AM COTTON PICKER OPERATOR Gender Identity Not on file Sexual Orientation Not on file documented as of this encounter Plan of Treatment Not on file documented as of this encounter Procedures Procedure Name Priority Date/Time Associated Diagnosis Comments XR CHEST PA OR AP 1 VW Routine 8 1:11 PM COTTON PICKER OPERATOR PT AND APTT Stat 05/13/2008 12:35 PM COTTON PICKER OPERATOR COMPREHENSIVE METABOLIC PANEL Stat 05/13/2008 12:35 PM COTTON PICKER OPERATOR CBC WITH DIFFERENTIAL Stat 05/13/2008 12:26 PM COTTON PICKER OPERATOR documented in this encounter Results * XR CHEST PA OR AP (05/13/2008 1:11 PM COTTON PICKER OPERATOR) Anatomical Region Laterality Modality Chest Other 05/13/2008 1:11 PM COTTON PICKER OPERATOR Narrative 05/15/2008 8:19 AM COTTON PICKER OPERATOR Exam: Chest - PA Date/Time of Exam: [...] (ABNORMAL) COMPREHENSIVE METABOLIC PANEL (05/13/2008 12:35 PM COTTON PICKER OPERATOR) OSMOLALITY, CALCULATED 294 275 - 295 mOsm/Kg [facility] GLUCOSE 182(H) 70 - 110 mg/dL [facility] CHLORIDE 106 95 - 110 mEq/L [facility] ALBUMIN/GLOBULIN RATIO 1.6 1.0 - 2.3 [facility] ALKALINE PHOSPHATASE 222(H) 25 - 100 U/L [facility] SODIUM 139 136 - 145 mEq/L [facility] BILIRUBIN TOTAL 0.3 0.3 - 1.2 mg/dL [facility] TOTAL PROTEIN 7.0 6.3 - 8.2 g/dL [facility] BUN 22(H) 7 - 17 mg/dL [facility] AST 21 8 - 33 U/L [facility] CO2 25 22 - 32 mmol/l [facility] ANION GAP 12 9 - 20 mEq/L [facility] ALBUMIN 4.3 3.5 - 5.0 g/dL [facility] POTASSIUM 4.2 3.5 - 5.0 mEq/L [facility] GLOBULIN (CALC) 2.7 2.4 - 3.9 g/dL [facility] CREATININE 0.9 0.7 - 1.2 mg/dL [facility] CALCIUM 9.7 8.4 - 10.5 mg/dL [facility] ALT 22 4 - 36 IU/L [facility] Blood specimen (specimen) 05/13/2008 12:35 PM COTTON PICKER OPERATOR 05/13/2008 12:46 PM COTTON PICKER OPERATOR us Braulio Nixon MD CHEMISTRY ORDERABLES Final Re sult INTERFACE SYSTEM Refer to clinic/hospital department [facility] CLIA# [id number] [address] [place] [address] * PT AND APTT (05/13/2008 12:35 PM COTTON PICKER OPERATOR) PTT 27.7 22.5 - 36.5 Secs [facility] Comment: Therapeutic Range: Hi-level PE/DVT heparin protocol 80.1 -95.0 sec Lo-level PE/DVT heparin protocol 67.1 - 80.0 sec Cardiac Heparin Protocol 67.1 - 85.0 sec Neuro Heparin Protocol 67.1 - 80.0 sec As of 09/27/2007 note change in APTT Normal Range. INR 1.0 [facility] Comment: Expected Values for INR: DVT/PE Goal INR 2.5; range 2.0 - 3.0 Valve Replacement Tissue Goal INR 2.5; range 2.0 - 3.0 Mechanical Goal INR 3.0; range 2.5 - 3.5 POST-NH Goal INR 2.5; range 2.0 - 3.0 or Goal 3.0; range 2.5 - 3.5 Atrial Fibrillation Goal INR 2.5; range 2.0 - 3.0 Ischemic Stroke Goal INR 2.5; range 2.0 - 3.0 For additional information see Guidelines for Anticoagulation available from the pharmacy Mayra Garcia [phone] PROTIME 14.5 12.8 - 15.8 Secs [facility] Comment:As of 2007 not e change in normal range. Blood specimen (specimen) 05/13/2008 12:35 PM COTTON PICKER OPERATOR 05/13/2008 12:46 PM COTTON PICKER OPERATOR us Braulio Nixon MD HEMATOLOGY ORDERABLES Edited INTERFACE SYSTEM Refer to clinic/hospital department [facility] CLIA# [id number] [address] [place] [address] * (ABNORMAL) CBC WITH DIFFERENTIAL (05/13/2008 12:26 PM COTTON PICKER OPERATOR) MCV 84.1 84.0 - 103.0 Fl [facility] BASOPHILS 0.3 0.0 - 1.0 % [facility] MPV 9.8 8.9 - 12.8 Fl [facility] BASOPHILS ABSOLUTE 0.0 0.0 - 0.2 K/ul [facility] HEMOGLOBIN 14.2 12.0 - 16.0 g/dL [facility] MONOCYTES 9.0 2.0 - 10.0 % [facility] RDW 12.9 11.0 - 14.5 % [facility] MONOCYTE ABSOLUTE 0.8(H) 0.1 - 0.6 K/ul [facility] WBC 9.2 4.8 - 10.8 K/ul [facility] NEUTROPHILS 59.6 42.2 - 75.2 % [facility] MCH 28.6 27.0 - 34.0 pg [facility] NEUTROPHIL ABSOLUTE 5.5 2.0 - 8.0 K/ul [facility] HEMATOCRIT 41.8 36.0 - 46.0 % [facility] PLATELETS 267 140 - 440 K/ul [facility] EOSINOPHIL ABSOLUTE 0.2 0.0 - 0.7 K/ul [facility] EOSINOPHILS 1.9 0.0 - 7.0 % [facility] RBC 4.97 4.20 - 5.40 Mil/ul [facility] MCHC 34.0 30.0 - 35.0 g/dL [facility] LYMPHOCYTE ABSOLUTE 2.7 1.2 - 4.0 K/ul [facility] LYMPHOCYTES 29.2 24.0 - 44.0 % [facility] Blood specimen (specimen) 05/13/2008 12:26 PM COTTON PICKER OPERATOR 05/13/2008 1:06 PM COTTON PICKER OPERATOR us Braulio Nixon MD HEMATOLOGY ORDERABLES Final R esult INTERFACE SYSTEM Refer to clinic/hospital department [facility] CLIA# [id number] [facility] [place] [address] documented in this encounter Visit Diagnoses Not on filedocumented in this encounter
--- OUTSIDE RECORDS SUMMARY | 2025-04-08 14:14 | XMS_ITS | Encounter Summary ---
Author Organization [facility] Address [address] [place] [address] Care Team Providers Care Deep Fryer Assembler Name Role Phone Unavailable Primary Care Provider Unavailabl e Encounter Details Date Type Department Care Team (Late st Contact Info) Description 05/13/2008 Outpatient Historical [facility] [place], Braulio Syed MD NO ADDRESS ON FILE Social History Tobacco Use Types Packs/Day Years Used Date Smoking Tobacco: Never Assessed Comments No Sex and Gender Information Value Date Recorded Sex Assigned at Not on file Legal Sex Female 6:30 AM COOK BARBECUE Gender Identity Not on file Sexual Orientation Not on file documented as of this encounter Plan of Treatment Not on file documented as of this encounter Procedures Procedure Name Priority Date/Time Associated Diagnosis Comments CALCIUM LEVEL Routine 05/30/2008 7:15 AM COOK BARBECUE POC GLUCOSE Routine 05/30/2008 4:48 AM COOK BARBECUE CALCIUM LEVEL Routine 05/29/2008 9:25 PM COOK BARBECUE POC GLUCOSE Routine 05/29/2008 6:35 PM COOK BARBECUE POC GLUCOSE Routine 05/29/2008 6:48 AM COOK BARBECUE PATHOLOGY Routine 05/29/2008 6:34 AM COOK BARBECUE documented in this encounter Results * CALCIUM LEVEL (05/30/2008 7:15 AM COOK BARBECUE) CALCIUM 8.8 8.4 - 10.5 mg/dL [facility] Blood specimen (specimen) 05/30/2008 7:15 AM COOK BARBECUE 05/30/2008 7:54 AM COOK BARBECUE us Braulio Nixon MD CHEMISTRY ORDERABLES Final Re sult Performing Organization Address [facility] Phone Number INTERFACE SYSTEM Refer to clinic/hospital department [facility] CLIA# [id number] [address] [place] [address] * (ABNORMAL) POC GLUCOSE (05/30/2008 4:48 AM COOK BARBECUE) GLUCOSE POC 221(H) 60 - 100 mg/dL [facility] Venous blood specimen (specimen) 05/30/2008 4:48 AM COOK BARBECUE 05/31/2008 4:13 AM COOK BARBECUE us Braulio Nixon MD POINT OF CARE TESTING Final R esult Performing Organization Address [facility] Phone Number INTERFACE SYSTEM Refer to clinic/hospital department [facility] CLIA# [id number] [address] [place] [address] * CALCIUM LEVEL (05/29/2008 9:25 PM COOK BARBECUE) CALCIUM 8.7 8.4 - 10.5 mg/dL [facility] Blood specimen (specimen) 05/29/2008 9:25 PM COOK BARBECUE 05/29/2008 9:50 PM COOK BARBECUE us Braulio Nixon MD CHEMISTRY ORDERABLES Final Re sult Performing Organization Address [facility] Phone Number INTERFACE SYSTEM Refer to clinic/hospital [facility] CLIA# [id number] [address] [place] [address] * (ABNORMAL) POC GLUCOSE (05/29/2008 6:35 PM COOK BARBECUE) GLUCOSE POC 104(H) 60 - 100 mg/dL [facility] Venous blood specimen (specimen) 05/29/2008 6:35 PM COOK BARBECUE 05/30/2008 5:50 AM COOK BARBECUE Braulio Nixon MD POINT OF CARE TESTING Final R esult Performing Organization Address [facility] de Phone Number INTERFACE SYSTEM Refer to clinic/hospital department [facility] CLIA# [id number] [address] [place] [address] * (ABNORMAL) POC GLUCOSE (05/29/2008 6:48 AM COOK BARBECUE) GLUCOSE POC 201(H) 60 - 100 mg/dL [facility] Venous blood specimen (specimen) 05/29/2008 6:48 AM COOK BARBECUE 05/29/2008 6:58 AM COOK BARBECUE Braulio Nixon MD POINT OF CARE TESTING Final R esult Performing Organization Address [facility] Phone Number INTERFACE SYSTEM Refer to clinic/hospital department [facility] CLIA# [id number] [address] [place] [address] * PATHOLOGY (05/29/2008 6:34 AM COOK BARBECUE) PATHOLOGY/CYT OLOGY REPORT [facility] Anatomic Pathology Dept [address] [place] [id number] Patient: FELICITAS HENSON Accn No: [id number] Collected: 05/29/2008 6:34:00 AM SURGICAL PATHOLOGY FINAL [...] cm DLS/TKB INTERFACE SYSTEM 05/29/2008 6:34 AM COOK BARBECUE us Braulio Nixon MD PATHOLOGY/CYTOLOGY ORDERABLES Final Result INTERFACE SYSTEM Refer to clinic/hospital department documented in this encounter Visit Diagnoses Not on filedocumented in this encounter
--- OUTSIDE RECORDS SUMMARY | 2025-04-08 14:14 | XMS_ITS | Encounter Summary ---
Author Organization Address [address] [facility] Attn: Epic Prelude ADT ABDIEL DELATORRE [address] Care Team Providers Care Concrete Inspector Name Role Phone Unavailable Primary Care Provider [...] on file Legal Sex Female 6:30 AM PROOF CARRIER Gender Identity Not on file Sexual Orientation Not on file documented as of this encounter Plan of Treatment Not on file documented as of this encounter Procedures Procedure Name Priority Date/Time Associated Diagnosis Comments T3 FREE Routine 03/26/2008 11:17 AM CDT documented in this encounter Results * (ABNORMAL) T3 FREE (03/26/2008 11:17 AM CDT) T3 FREE 7.6(H) 2.3 - 4.2 pg/mL [facility] Blood specimen (specimen) 03/26/2008 11:17 AM CDT 03/26/2008 9:46 PM CDT us Felix Wright MD CHEMISTRY ORDERABLES Final R esult INTERFACE SYSTEM Refer to clinic/hospital department [facility] CLIA# [id number] [address] [place] [address] documented in this encounter Visit Diagnoses Not on filedocumented in this encounter
--- OUTSIDE RECORDS SUMMARY | 2025-04-08 14:15 | XMS_ITS | Clinical Summary ---
Author Organization [facility] Address [address] [place] [address] Care Team Providers Care Asphalt Smoother Name Role Phone Unavailable Primary Care Provider [...] on file Legal Sex Female 6:30 AM STRAWHAT BLOCKING OPERATOR Gender Identity Not on file Sexual [...] (#1) 2025 Medical Devices Implanted Type Area Pelletizer Device Identifier Shelf Expiration Date Model / Serial / Lot Sn/A - [id number] Implanted:Qty: 1 on 10/30/2008 at [facility] Biological Bilateral : Vocal Cord [employer] 04/09/2010 [id number] / N/A / [id number] Description:Radiesse Voice 1 ml injected bilateral vocal cords. Procedures Procedure Name Priority Date/Time Associated Diagnosis Comments HEMOGLOBIN A1C Routine 04/30/2008 from Last 3 Months or Most Recently Relevant to Health Maintenance Results * HEMOGLOBIN A1C (04/30/2008) Blood specimen (specimen) us Historical Provider CHEMISTRY ORDERABLES Final R esult [facility] [address] [place] [address] from Last 3 Months or Most Recently Relevant to Health Maintenance Insurance MEDICARE PART A AND B Advance Directives For more information, please contact: [phone] * Full Code (Latest Code Status on File) Date Activated Date Inactivated Comments 10/30/2008 10:52 AM 10/31/2008 2:02 AM * Full Code Date Activated Date Inactivated Comments 10/30/2008 9:41 AM 10/30/2008 10:52 AM * Full Code Date Activated Date Inactivated Comments 10/30/2008 7:16 AM 10/30/2008 9:41 AM
[2025-04-08 14:32] VITALS: BP 116/60; PULSE 73; RESP 18; TEMP 36.8; O2SAT 94; BMI 24.7
--- NOTE | 2025-04-08 14:37 | XR_ITS ---
WS: [id number] XR hip LT 2-3V wo/w pel* [id number] REASON FOR EXAM: hip pain x5 days FINDINGS: No fracture or focal bone lesion. Mild to moderate narrowing of the posterior inferior joint space with mild narrowing of the anterior superior joint space. Moderate subchondral sclerosis of the acetabulum with mild marginal osteophytosis. Mild osteophytosis of the femoral head. 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
--- NOTE | 2025-04-08 16:44 | CTR_ITS ---
PROCEDURE INFORMATION: Exam: CT Pelvis Without Contrast, Skeleton Exam date and time: 04/08/2025 5:32 PM Age: 85 years old Clinical indication: Hip pain; Left hip; Additional info: Left hip/inguinal pain, cant walk, verified with melanie Guevara TECHNIQUE: Imaging protocol: Computed tomography of the pelvis without contrast. Exam focused on the skeleton. Total images: 1 Radiation optimization: All CT scans at this facility use at least one of these dose optimization techniques: automated exposure control; mA and/or kV adjustment per patient size (includes targeted exams where dose is matched to clinical indication); or iterative reconstruction. COMPARISON: 1. CT abdomen pelvis wo con [id number] 02/26/2025 4:[address] abdomen pelvis w con* [id number] 08/01/2022 1:15 PM RADIATION DOSE METRICS: Total DLP (mGy-cm): 473.53 FINDINGS: Kidneys and ureters: Left nonobstructive kidney stones measure as large as 4 mm. Intestine: Small volume of stool throughout the course of the nondistended colon. No significant peritoneal free fluid. No free peritoneal air. No obstructive findings insofar as bowel visualized. Vasculature: Vascular structures demonstrate atherosclerosis. Reproductive: Prior hysterectomy. Normal-appearing vaginal cuff. No adnexal cysts or masses are identified. Multiple coarse ovarian-adnexal calcifications without evidence of ovarian enlargement. Urinary bladder: No focal wall thickening of the urinary bladder. Bones/joints: Pubic symphysis degenerative changes (osteitis pubis). Moderate degenerative changes of both hips. Sacroiliac joint degenerative manifestations. Moderate generalized degenerative changes of the vertebral column characterized by multilevel osteophyte formation, degenerative disc height loss and facet arthrosis commensurate with patient's age. No acute displaced fracture, subluxation or dislocation. Generalized bony tendon origin/insertion proliferative enthesopathy, mild. Soft tissues: Posterior superficial soft tissue edema is present and suspicious for anasarca. Left gluteal calcified injection granulomas. Diastasis of the anterior abdominal wall. Dermal and superficial subcutaneous soft tissues are otherwise normal as visualized, demonstrating no masses or induration. CT/CT bony pelvis [id number] IMPRESSION: 1. No acute displaced fracture with intermediate to high degree of confidence in the setting of osteopenia. 2. Moderate degenerative skeletal changes of the spine, and other chronic/nonacute findings as described above. 3. Prior hysterectomy. Multiple coarse ovarian-adnexal calcifications without evidence of ovarian enlargement. 4. Posterior superficial soft tissue edema is present and suspicious for anasarca. COMMENTS: If symptoms persist or worsen, baseline MRI pelvis/hip would be the most sensitive imaging modality for nondisplaced fractures in the setting of osteopenia.
--- NOTE | 2025-04-08 17:06 | W.ED.EXTPRO ---
HPI - Extremity Problem General: Chief complaint: Extremity Injury, Lower Stated complaint: LT hip pain Time Seen by Provider: 04/08/25 16:19 Source: patient and old records reviewed Mode of arrival: EMS Limitations: no limitations History of Present Illness: Patient is a 85-year-old female with past medical history of active chronic lymphocytic leukemia B-cell, myasthenia gravis, who is presenting to the emergency department by ambulance due to left hip pain that has been going on for the past week. Denies any fall or direct trauma. States that she has had decreased sensation to her left lower extremity and that it is difficult for her to walk. She is not reporting any fevers or chills, loss of bowel or bladder function, or saddle anesthesia. She states that primarily the pain is to the anterolateral aspect and extends into the groin. Pain specifically exacerbated by movement at the left hip, denies any coolness, swelling, redness, or calf pain of the left lower extremity. She saw oncology on 03/31 where she was not having any symptoms at that time, however it appears that she deals with chronic bilateral lower extremity weakness from her myasthenia gravis. Had labs at that time showing downtrending white blood cell count. Does also have a history of rheumatoid arthritis. Patient tells me that EMS gave her a medication prehospital that greatly helped her symptoms. MD Complaint: joint pain Onset (ago): week(s) Pain Consistency: constant Location: left and lower extremity (Hip) Radiation: distal Exacerbating factors: range of motion, weight bearing and walking Associated symptoms: Deny chest pain, fever(s) or rash Related Data Home Medications ?Medication ?Instructions ?Recorded ?Confirmed aspirin 81 mg tablet,delayed 81 mg PO QAM 08/09/23 03/31/25 release cascara sagrada 500 mg capsule 500 mg PO BEDTIME PRN Constipation 09/05/23 03/31/25 cholecalciferol (vitamin D3) 125 5,000 unit PO QAM 09/05/23 03/31/25 mcg (5,000 unit) tablet (Vitamin D3) cranberry concentrate-ascorbic 1 cap PO QAM 09/05/23 03/31/25 acid 140 mg-100 mg capsule (Cranberry Plus Vitamin C) tolterodine 2 mg tablet 2 mg PO QAM 09/05/23 03/31/25 Previous Rx's ?Medication ?Instructions ?Recorded Power chair repair #1 ea 09/27/22 albuterol sulfate 2.5 mg/3 mL 2.5 mg (3 mL) inhalation QID PRN 02/23/23 (0.083 %) solution for nebulization shortness of breath or wheezing #360 mL diazepam 2 mg tablet (Valium) 2 mg PO TID PRN muscle spasm #90 03/05/24 tabs flash glucose scanning reader #1 ea 04/08/24 (FreeStyle [place] 2 [place]) E0627 Power Chair with lift #1 ea 04/21/24 Roho Wheelchair Coushion [id number] #1 ea 04/21/24 albuterol sulfate 90 mcg/actuation 2 puff inhalation QID PRN 04/21/24 aerosol inhaler Shortness Of Breath #6.7 grams insulin aspart U-100 100 unit/mL See Rx Instructions SUBCUT TID #15 04/21/24 (3 mL) subcutaneous pen (Novolog mL FlexPen U-100 Insulin aspart) nitroglycerin 0.4 mg sublingual 0.4 mg sublingual Q5M PRN chest 09/23/24 tablet pain 30 days #30 tabs omeprazole 20 mg capsule,delayed 20 mg PO DAILY #30 caps 09/26/24 release isosorbide mononitrate 30 mg 30 mg PO DAILY #90 tabs 10/17/24 tablet,extended release 24 hr clopidogrel 75 mg tablet (Plavix) 75 mg PO DAILY #90 tabs 11/16/24 flash glucose sensor (FreeStyle #7 ea 12/11/24 William 2 Sensor kit) insulin glargine U-300 conc 300 40 unit (0.1333 mL) SUBCUT DAILY 12/11/24 unit/mL (3 mL) subcutaneous pen #12 mL (Toujeo Max U-300 SoloStar) lidocaine 5 % topical patch 1 patch topical [id number] #90 ea 12/11/24 prednisone 10 mg tablet See Rx Instructions PO .COMPLEX 01/13/25 PRN joint pain #30 tabs prednisone 5 mg tablet 5 mg PO DAILY #90 tabs 01/13/25 budesonide 160 mcg-glycopyr 9 2 inh inhalation BID PRN Shortness 03/13/25 mcg-formot 4.8 mcg/actuation HFA Of Breath #10.7 grams inhaler (Breztri Aerosphere) cyclobenzaprine 10 mg tablet 10 mg PO .at bedtime #90 tabs 03/13/25 furosemide 20 mg tablet 20 mg PO QAM #90 tabs 03/13/25 levothyroxine 100 mcg tablet 100 mcg PO QAM #90 tabs 03/13/25 pregabalin 50 mg capsule (Lyrica) 50 mg PO BID #180 caps 03/13/25 simvastatin 20 mg tablet 20 mg PO BEDTIME #90 tabs 03/13/25 hydrocodone 5 mg-acetaminophen 325 1 tab PO Q8H PRN pain #20 tabs 04/08/25 mg tablet polyethylene glycol 3350 17 4 g PO DAILY #119 grams 04/08/25 gram/dose oral powder (Miralax) Allergies Allergy/AdvReac Type Severity Reaction Status Date / Time pneumococcal vaccine Allergy ALGY-Rash Verified 03/31/25 11:54 Sulfa (Sulfonamide Allergy RASH Verified 03/31/25 11:54 Antibiotics) Review of Systems General: Reports: 10 or more systems reviewed and unremarkable except in HPI and below Const: Denies: fever(s) or chills Card: Denies: chest pain Resp: Denies: dyspnea or productive cough GI: Denies: abdominal pain, nausea, vomiting or diarrhea : Denies: flank pain Musc: Reports: joint pain (Left hip); Denies: neck pain, back pain, extremity pain, extremity swelling, joint swelling, joint redness, joint warmth, limited range of motion or muscle weakness Skin/Breast: Denies: rash Neuro: Reports: weakness in extremities (Chronic, bilateral lower extremities left worse than right); Denies: headache(s) or numbness in extremities PFSH ED PFSH: Medical History High risk medication use Seropositive rheumatoid arthritis of multiple sites Generalized weakness Atherosclerosis of [place] coronary artery without angina pectoris (~10/29/24) Chronic lymphocytic leukemia Urolithiasis Left ureteral calculus Myasthenia gravis UTI (urinary tract infection) Diabetes mellitus with hyperglycemia, with long-term current use of insulin Environmental and seasonal allergies Essential hypertension, benign Pneumonia Hyperlipidemia Vitamin D deficiency Vitamin B 12 deficiency COPD (chronic obstructive pulmonary disease) Depression with anxiety Hypothyroidism Neuropathy Surgical History History of basal cell carcinoma (BCC) excision History of hysterectomy with bilateral oophorectomy For cervical cancer History of appendectomy History of colonoscopy with polypectomy (11/17/21) Pacemaker 04/05/2019 H/O thyroidectomy Total thyroidectomy followed by radioactive iodine ablation for thyroid cancer H/O reduction of closed fracture left wrist 10/23/2015 Hx of cholecystectomy H/O brain surgery Craniotomy x 4 for meningioma H/O esophagogastroduodenoscopy (11/17/21) 2013 Family History Mother , AT 92 Anesthesia complication CAD (coronary artery disease) Cancer Dementia Stroke Brother CAD (coronary artery disease) Cancer Suicide Sister CAD (coronary artery disease) Suicide Grandmother Cancer Dementia Stroke Family/Other Cancer Dementia Stroke Brother Suicide Brother Suicide Father , IN HIS 60'S Alcoholic Liver disease Denies family history of Diabetes Clotting disorder Chronic kidney disease (CKD) Bleeding disorder Lung disease Social History Smoking and tobacco/nicotine status: former use of tobacco/nicotine Quit status (tobacco/nicotine): has quit using Year quit tobacco: 1997 Former quit date comment: 1 ppd X 45 years Second hand smoke exposure: No Alcohol intake: unknown Substance/Drug Use: unknown Adopted: No Caregiver/support person: Yes Lives independently: No Household members: family Housing: House Marital status: / Number of children: 2 service: No Current occupational status: retired Current occupational exposures/hazards: No Do you think of yourself as: Straight/Heterosexual Physical Exam Const: COMMON NORMALS: no acute distress, patient oriented x3, no limitations, healthy appearing, alert and well nourished HENMT: COMMON NORMALS: normocephalic and atraumatic HEAD & SCALP: normocephalic and atraumatic Neck/C-Spine: COMMON NORMALS: full ROM, supple and no meningeal signs Resp: COMMON NORMALS: normal respiratory effort, No use of accessory muscles and clear to auscultation bilaterally AUSCULTATION: clear to auscultation bilaterally Cardio: COMMON NORMALS: regular rate and regular rhythm RATE: regular rate RHYTHM: regular rhythm Extremity: NARRATIVE EXTREMITY EXAM: No significant reproducible tenderness palpation to the left hip or pelvic region. There is no pedal edema, swelling, coolness, or pallor of the left lower extremity. No calf tenderness to palpation. Negative Homans' sign. No sensory changes and dorsalis pedis and posterior tibial pulses are palpable distally to the left lower extremity. No signs of trauma or deformity. Neuro: COMMON NORMALS: patient oriented x3, moves all extremities, no focal motor deficits and no sensory deficits noted SENSORIUM/ORIENTATION: Yes alert MENINGEAL SIGNS: Yes no meningeal signs Skin: COMMON NORMALS: no rashes or lesions noted NARRATIVE SKIN EXAM: No overlying skin changes of the left hip GENERAL SKIN EXAM: no rashes or lesions noted Course Vital Signs: Vital signs: Vital Signs Temperature 98.2 F 04/08/25 14:32 Pulse Rate 71 04/08/25 19:52 Respiratory Rate 17 04/08/25 19:52 Blood Pressure 134/61 04/08/25 19:52 Pulse Oximetry 94 04/08/25 19:52 Oxygen Delivery Me thod Room Air 04/08/25 18:10 MDM - Extremity (Nontraumatic) Medical Decision Making Patient has history of CLL, presenting with left hip pain for a week. States that she also has had trouble walking due to weakness, though has a history of myasthenia gravis as well and overall has been feeling increasingly weak over months. On exam there is no obvious deformity or trauma to the left hip, no overlying skin changes, neurovascular exam was unremarkable. X-ray does not show any definitive findings. With her history of cancer when to rule out any pathologic fracture or bony metastasis, pelvic CT demonstrates no acute fractures as well or any other changes. She notes significant increase of symptoms after receiving fentanyl here, CBC shows her chronically elevated white blood cell count that is not significantly unchanged from prior labs a week ago. There is also no concerning elevation to inflammatory markers as her CRP and ESR are unremarkable. I suspect this pain is related to cancer, and she states that she has followed up with oncology but has yet to start chemo or radiation. Will send pain medication to pharmacy, and she is also highly encouraged to follow-up with primary care for further eval and to get with her oncologist again for further management. No further workup necessary in the emergency department at this time. Lab Data 04/08/25 17:57 04/08/25 17:57 Radiology Impressions Hip/Pelvis X-Ray 04/08/25 14:37 IMPRESSION: Mild osteoarthritis of the left hip for age. Pelvis CT 04/08/25 16:44 IMPRESSION: 1. No acute displaced fracture with intermediate to high degree of confidence in the setting of osteopenia. 2. Moderate degenerative skeletal changes of the spine, and other chronic/nonacute findings as described above. 3. Prior hysterectomy. Multiple coarse ovarian-adnexal calcifications without evidence of ovarian enlargement. 4. Posterior superficial soft tissue edema is present and suspicious for anasarca. COMMENTS: If symptoms persist or worsen, baseline MRI pelvis/hip would be the most sensitive imaging modality for nondisplaced fractures in the setting of osteopenia. Laboratory Results WBC 80.53 10^3/uL (3.29-11.43) H* 04/08/25 17:57 RBC 3.88 10^6/uL (3.85-5.65) 04/08/25 17:57 Hgb 11.10 g/dL (11.27-16.99) L 04/08/25 17:57 Hct 36.0 % (36-47) 04/08/25 17:57 MCV 92.8 fl (85-98) 04/08/25 17:57 MCH 28.6 pg (27-33) 04/08/25 17:57 MCHC 30.8 g/dL (30-55) 04/08/25 17:57 RDW 15.9 % (12.1-15.1) H 04/08/25 17:57 Plt Count 162 10^3/cmm (157-399) 04/08/25 17:57 MPV 8.7 fL (7.4-10.4) 04/08/25 17:57 Lymph % (Auto) Not Reportable 04/08/25 17:57 [place] % (Auto) Not Reportable 04/08/25 17:57 Lymph # (Auto) Not Reportable 04/08/25 17:57 [place] # (Auto) Not Reportable 04/08/25 17:57 Total Counted 100 (0-100) 04/08/25 17:57 Atypical Lymphs % 34.0 % (0-5) H 04/08/25 17:57 Absolute Neutrophils 4.8 10^3/cmm (1.4-6.5) 04/08/25 17:57 Segmented Neutrophils 6 % 04/08/25 17:57 Band Neutrophils 0.0 % 04/08/25 17:57 Absolute Lymphocytes 73.3 10^3/cmm (1.2-3.4) H 04/08/25 17:57 Lymphocytes (Manual) 57 % 04/08/25 17:57 Monocytes (Manual) 3.0 % 04/08/25 17:57 Absolute Monocytes 2.4 10^3/cmm (0.1-0.6) H 04/08/25 17:57 Eosinophils (Manual) 0 % 04/08/25 17:57 Absolute Eosinophils 0.0 10^3/cmm (0.0-0.7) 04/08/25 17:57 Basophils (Manual) 0.0 % 04/08/25 17:57 Absolute Basophils 0.0 10^3/cmm (0.0-0.2) 04/08/25 17:57 Platelet Estimate Normal (Normal) 04/08/25 17:57 Spherocytes Trace 04/08/25 17:57 ESR 15 mm/hr (0-15) 04/08/25 17:57 Sodium 142 mmol/L (136-145) 04/08/25 17:57 Potassium 4.4 mmol/L (3.5-5.1) 04/08/25 17:57 Chloride 104 mmol/L (98-107) 04/08/25 17:57 Carbon Dioxide 27 mmol/L (22-29) 04/08/25 17:57 Anion Gap 15.4 (5-19) 04/08/25 17:57 BUN 12 mg/dL (8-23) 04/08/25 17:57 Creatinine 0.6 mg/dL (0.5-0.9) 04/08/25 17:57 GFR Calculation Not Reportable 04/08/25 17:57 Glucose 103 mg/dL (65-115) 04/08/25 17:57 Calculated Osmolality 294 mOsm/kg (285-295) 04/08/25 17:57 Calcium 9.0 mg/dL (8.5-10.5) 04/08/25 17:57 Total Bilirubin 0.6 mg/dL (0.15-1.2) 04/08/25 17:57 AST 21 U/L (0-32) 04/08/25 17:57 ALT 10 U/L (0-33) 04/08/25 17:57 Alkaline Phosphatase 81 U/L (35-105) 04/08/25 17:57 C-Reactive Protein 17.9 mg/L (0.0-4.9) H 04/08/25 17:57 Total Protein 6.9 g/dL (6.6-8.7) 04/08/25 17:57 Albumin 4.1 g/dL (3.5-5.2) 04/08/25 17:57 Globulin 2.8 g/dL (1.3-4.6) 04/08/25 17:57 All radiology interpretation(s) finalized by discharge Discharge Plan Discharge Patient Disposition: Home Clinical Impression: Cancer associated pain Condition: Stable Prescriptions: New hydrocodone-acetaminophen 5-325 mg tablet 1 tab PO Q8H PRN (Reason: pain) Qty: 20 0RF polyethylene glycol 3350 [Miralax] 17 gram/dose powder 4 g PO DAILY Qty: 119 0RF No Action albuterol sulfate 2.5 mg /3 mL (0.083 %) solution for nebulization 2.5 mg inhalation QID PRN (Reason: shortness of breath or wheezing) Qty: 360 3RF (DME) [facility] Wheelchair Coushion [id number] See Rx Instructions .Route .MEDSUPPLY Qty: 1 0RF Rx Instructions: use in wheelchair or powerchair (DME) E0627 Power Chair with lift See Rx Instructions .Route .MEDSUPPLY Qty: 1 0RF Rx Instructions: use daily for mobility 99 months albuterol sulfate 90 mcg/actuation HFA aerosol inhaler 2 puff INHALATION QID PRN (Reason: Shortness Of Breath) Qty: 6.7 1RF insulin aspart U-100 [Novolog FlexPen U-100 Insulin] 100 unit/mL (3 mL) insulin pen See Rx Instructions SUBCUT TID Qty: 15 2RF Rx Instructions: sliding scale bid nitroglycerin 0.4 mg tablet, sublingual 0.4 mg sublingual Q5M PRN (Reason: chest pain) 30 Days Qty: 30 3RF Rx Instructions: until response; do not exceed 3 doses per episode pregabalin [Lyrica] 50 mg capsule 50 mg PO BID Qty: 180 1RF levothyroxine 100 mcg tablet 100 mcg PO QAM Qty: 90 1RF [place] 160-9-4.8 mcg/actuation HFA aerosol inhaler 2 inh inhalation BID PRN (Reason: Shortness Of Breath) Qty: 10.7 1RF cyclobenzaprine 10 mg tablet 10 mg PO .at bedtime Qty: 90 1RF furosemide 20 mg tablet 20 mg PO QAM Qty: 90 1RF simvastatin 20 mg tablet 20 mg PO BEDTIME Qty: 90 1RF diazepam [Valium] 2 mg tablet 2 mg PO TID PRN (Reason: muscle spasm) Qty: 90 5RF prednisone 10 mg tablet See Rx Instructions PO .COMPLEX PRN (Reason: joint pain) Qty: 30 1RF Rx Instructions: take 1 or 2 tab daily up to 7 days prn joint pain flare PO PRN; prednisone 5 mg tablet 5 mg PO DAILY Qty: 90 1RF insulin glargine U-300 conc [Toujeo Max U-300 SoloStar] 300 unit/mL (3 mL) insulin pen 40 unit SUBCUT DAILY Qty: 12 2RF lidocaine 5 % adhesive patch,medicated 1 patch topical [id number] Qty: 90 1RF (DME) FreeStyle William 2 Sensor Kit See Rx Instructions .ROUTE .MEDSUPPLY Qty: 7 11RF Rx Instructions: change every 14 days (DME) Power chair repair See Rx Instructions .Route .MEDSUPPLY Qty: 1 0RF Rx Instructions: Repair power chair and maintenance (DME) FreeStyle William 2 [place] Misc See Rx Instructions .ROUTE .MEDSUPPLY Qty: 1 0RF Rx Instructions: As directed isosorbide mononitrate 30 mg tablet extended release 24 hr 30 mg PO DAILY Qty: 90 3RF aspirin 81 mg tablet,delayed release (DR/EC) 81 mg PO QAM Cranberry Plus Vitamin C 140-100 mg Capsule 1 cap PO QAM tolterodine 2 mg Tablet 2 mg PO QAM casc[place] sagr[place] 500 mg Capsule 500 mg PO BEDTIME PRN (Reason: Constipation) cholecalciferol (vitamin D3) [Vitamin D3] 125 mcg (5,000 unit) Tablet 5,000 unit PO QAM omeprazole 20 mg capsule,delayed release(DR/EC) 20 mg PO DAILY Qty: 30 0RF clopidogrel [Plavix] 75 mg tablet 75 mg PO DAILY Qty: 90 3RF Discharge Orders: Discharge ED (Routine); Ordered 04/08/25 Ordered By: Sp Gallardo Referrals: Adam Anguiano, MARLO [Primary Care Provider, [facility]] Patient Instructions: Opioid Safety, Pain Management, Patient Portal & Rory Instructions Activity Restrictions/Additional Instructions: Cancer Pain Discharge Instructions Diagnosis/Clinical Summary: 85-year-old female with cancer-related hip pain, no acute abnormality on CT (no pathologic fracture), history of myasthenia gravis with chronic weakness. Discharged with hydrocodone/acetaminophen 5 mg/325 mg for pain, to follow up with oncology and primary care. --- Discharge Instructions: 1. Pain Management - Hydrocodone/acetaminophen 5 mg/325 mg prescribed for pain. - Use the lowest effective dose and titrate cautiously, especially in older adults and those with comorbidities. - May consider half-tablet dosing for frail or elderly patients. - Take only as prescribed; do not exceed the recommended dose or frequency. - Avoid additional [id number] acetaminophen to prevent cumulative toxicity; maximum daily acetaminophen dose should not exceed 3 g in older adults. 2. Monitoring and Safety - Monitor for opioid-related adverse effects: - Constipation: Initiate prophylactic stimulant laxative (e.g., senna 2 tablets daily) and maintain adequate hydration and physical activity as tolerated. - Sedation/Confusion: Assess for excessive drowsiness, confusion, or difficulty arousing. If present, hold opioid and contact provider. - Respiratory depression: Watch for slowed breathing (<10 breaths/min), especially in those with neuromuscular disease (myasthenia gravis increases risk). Sedation often precedes respiratory depression; reduce dose or hold opioid if symptoms develop. - Falls: Increased risk due to age, chronic weakness, and opioid use. Advise fall precautions (e.g., assistive devices, remove tripping hazards). - Other side effects: Nausea, vomiting, dry mouth, tolerance, physical dependence, and withdrawal symptoms if stopped abruptly. 3. Myasthenia Gravis Considerations - Opioids may exacerbate weakness and respiratory compromise in myasthenia gravis. Monitor closely for increased weakness or respiratory symptoms; contact provider if these occur. 4. Polypharmacy and Drug Interactions - Review all current medications, including [id number] and supplements, for potential interactions with opioids and acetaminophen. - Avoid concurrent use of other sedating agents (e.g., benzodiazepines, alcohol) due to increased risk of sedation and respiratory depression. 5. Safe Use, Storage, and Disposal - Store opioids in original packaging in a locked container; do not share with others. - Dispose of unused opioids via take-back programs or as per FDA recommendations (flushing if no program available). - Educate caregivers regarding risks of accidental ingestion, especially in households with children or cognitively impaired individuals. 6. Activity and Function - Encourage activity as tolerated to maintain function and independence; improvement in function is a primary goal, even if pain persists. - Use assistive devices as needed for mobility and safety. 7. Follow-Up and Communication - Schedule follow-up with oncology and primary care as directed. - Reassess pain control, adverse effects, and functional status at each contact; titrate opioid dose as needed to balance pain relief and side effects. - Contact provider for: - Uncontrolled pain or new/worsening pain - Difficulty obtaining or taking medication - Nausea/vomiting preventing oral intake for >1 day - No bowel movement for >3 days - Excessive sedation or confusion - Difficulty arousing from sleep - Signs of opioid toxicity or withdrawal 8. Education for Patient and Caregiver - Pain management is a luis part of cancer care; reporting pain is essential for optimal treatment. - Opioids are for pain only, not for sleep or mood. - If pain is not controlled or side effects are intolerable, alternative therapies or opioid rotation may be considered. - Provide written instructions and contact information for after-hours assistance. 9. Additional Considerations - Nonpharmacologic interventions (e.g., heat/cold packs, gentle physical therapy, psychosocial support) may be beneficial. - If pain persists or adverse effects are unmanageable, consider referral to pain or palliative care specialists. --- Medication List: - Hydrocodone/acetaminophen 5 mg/325 mg, as prescribed - Stimulant laxative (e.g., senna), as prescribed Medications to Avoid: - Additional acetaminophen-containing products - Sedatives (benzodiazepines, alcohol) - NSAIDs unless specifically approved by oncology/primary care due to risk of renal/GI/cardiac toxicity in cancer patients Provider Contact Information: - [Insert provider contact numbers and after-hours instructions] Plan for Prescription Refills: - Schedule II narcotics require written prescription; plan ahead for refills Print Language: Kiswahili Coding Level of Care Code ED Director Digital [employer] for Kina Jackson
[2025-04-08] MEDS: fentaNYL 50 mcg/mL INJ 2mL IVP (18:06)
[2025-04-08 18:07] LABS: Hematocrit 36.0 % (36-47); Hemoglobin 11.10 g/dL (11.27-16.99); Mean Corpuscular HGB Conc 30.8 g/dL (30-55); Mean Corpuscular Hemoglobin 28.6 pg (27-33); Mean Corpuscular Volume 92.8 fl (85-98); Platelet Count 162 10^3/cmm (157-399); Red Blood Count 3.88 10^6/uL (3.85-5.65)
[2025-04-08 18:10] VITALS: PULSE 76; O2SAT 94
[2025-04-08 18:24] LABS: Alanine Aminotransferase 10 U/L (0-33); Albumin Level 4.1 g/dL (3.5-5.2); Alkaline Phosphatase 81 U/L (35-105); Anion Gap 15.4 (5-19); Aspartate Amino Transferase 21 U/L (0-32); Blood Urea Nitrogen 12 mg/dL (8-23); Calcium 9.0 mg/dL (8.5-10.5); Carbon Dioxide 27 mmol/L (22-29); Chloride 104 mmol/L (98-107); Creatinine Clr Calc Pharmacy 47.8117; Globulin 2.8 g/dL (1.3-4.6); Glucose 103 mg/dL (65-115); Osmolality Calculated 294 mOsm/kg (285-295); Potassium 4.4 mmol/L (3.5-5.1); Sodium 142 mmol/L (136-145); Total Protein 6.9 g/dL (6.6-8.7)
[2025-04-08 18:27] LABS: White Blood Count 80.53 10^3/uL (3.29-11.43)
[2025-04-08 18:41] LABS: Slide Review Slide Review Perform
[2025-04-08 18:42] LABS: Absolute Segmented Neutrophil 4.8 10/cmm (1.6-7.1); Atypical Lymphs 34.0 % (0-5); Band Neutrophils Absolute 0.0 10^3/cmm (0.0-1.2); Spherocytes Trace; Total Cells Counted 100 (0-100)
[2025-04-08 19:52] VITALS: BP 134/61; PULSE 71; RESP 17; O2SAT 94
== END 2025-04-08 19:45 | disposition home or self-care (01) ==
PROVIDERS: Emergency Provider Physician Assistant; PCP Nurse Practitioner
DX: C91.10 Chronic lymphocytic leukemia of B-cell type not having achieved remission (principal); G89.3 Neoplasm related pain (acute) (chronic); E78.5 Hyperlipidemia, unspecified; J44.9 Chronic obstructive pulmonary disease, unspecified; I25.10 Atherosclerotic heart disease of native coronary artery without angina pectoris; E11.40 Type 2 diabetes mellitus with diabetic neuropathy, unspecified; Z87.891 Personal history of nicotine dependence; Z79.4 Long term (current) use of insulin; Z79.82 Long term (current) use of aspirin; Z79.02 Long term (current) use of antithrombotics/antiplatelets
CPT/HCPCS: 36415; 72192; 73502; 80053; 85007; 85025; 85651; 86140; 96374; 99285; J3010

== ENCOUNTER 2025-04-10 11:35 | Oncology outpatient (recurring) (ONCR) | payer MEDICARE, OTHER, SELFPAY | END 2025-05-09 23:59 | disposition home or self-care (01) | PROVIDERS: PCP Nurse Practitioner; Visit Provider Internal Medicine Medical Oncology | DX: C91.10 Chronic lymphocytic leukemia of B-cell type not having achieved remission (principal); G70.00 Myasthenia gravis without (acute) exacerbation; M21.379 Foot drop, unspecified foot; R10.30 Lower abdominal pain, unspecified; R53.1 Weakness; M16.12 Unilateral primary osteoarthritis, left hip; M79.89 Other specified soft tissue disorders; Z79.899 Other long term (current) drug therapy; Z87.891 Personal history of nicotine dependence | CPT/HCPCS: 99214 ==

== ENCOUNTER → 2025-04-30 08:16 | Outpatient (BNVA) | payer MEDICARE, OTHER, SELFPAY | PROVIDERS: PCP Nurse Practitioner; Visit Provider Podiatrist Foot & Ankle Surgery | DX: M79.671 Pain in right foot (principal); E11.65 Type 2 diabetes mellitus with hyperglycemia; L60.3 Nail dystrophy; Z79.4 Long term (current) use of insulin | CPT/HCPCS: 11721 ==

== ENCOUNTER 2025-06-11 17:52 | Inpatient (IN) | payer MEDICARE, OTHER, SELFPAY ==
--- OUTSIDE RECORDS SUMMARY | 2024-05-04 03:00 | XMS_ITS ---
Author Organization [facility] Address [address] [place] [address] Care Team Providers Care Entry Level Business Analyst Name Role Phone Migration, Provider Unavailable Unavailable REASON FOR VISIT EMR-[facility] Encounters Encounter Location Date Provider Diagnosis Migrated_Facility 0 0 05/04/2024 Provider Migration Plan Of Treatment No Information Progress Notes * DALTON HENSON LDOB: [birth year] (85 yo F)Acc No.[id number]:05/04/2024 Patient: Jacinto CEJADALTON :1940 A ge:84 Y S ex:Female Address:[address] [place] [id number] Subjective: * Chief Complaints: * E MR-Indra * * Date:
--- OUTSIDE RECORDS SUMMARY | 2024-05-05 03:00 | XMS_ITS ---
Author Organization [facility] Address [address] [place] [address] Care Team Providers Care Soloist Dancer Name Role Phone Migration, Provider Unavailable Unavailable REASON FOR VISIT [facility] Encounters Encounter Location Date Provider Diagnosis Migrated_Facility 0 0 05/05/2024 Provider Migration Plan Of Treatment No Information Progress Notes * DALTON HENSON LDOB: [birth year] (85 yo F)Acc No.[id number]:05/05/2024 Patient: Jacinto CEJADALTON :1940 A ge:84 Y S ex:Female Address:[address] [place] [id number] Subjective: * Chief Complaints: * E MR-Indra * * Date:
[2025-06-11] VITALS (44 sets, daily range): BP systolic 114–160; BP diastolic 36–122; PULSE 77–114; RESP 21–38; TEMP 37.1; O2SAT 81–95
--- OUTSIDE RECORDS SUMMARY | 2025-06-11 18:03 | XMS_ITS | Encounter Summary ---
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[employer] Gender Identity Not on file Sexual Orientation Not on file documented as of this encounter Plan of Treatment Not on file documented as of this encounter Procedures Procedure Name Priority Date/Time Associated Diagnosis Comments T3 FREE Routine 03/26/2008 11:17 AM CDT documented in this encounter Results * (ABNORMAL) T3 FREE (03/26/2008 11:17 AM CDT) T3 FREE 7.6(H) 2.3 - 4.2 pg/mL [facility] Blood specimen (specimen) 03/26/2008 11:17 AM CDT 03/26/2008 9:46 PM CDT us Felix Wright MD CHEMISTRY ORDERABLES Final R esult INTERFACE SYSTEM Refer to clinic/hospital department [facility] CLIA# [id number] [address] [place] [address] documented in this encounter Visit Diagnoses Not on filedocumented in this encounter
--- OUTSIDE RECORDS SUMMARY | 2025-06-11 18:03 | XMS_ITS | Encounter Summary ---
Author Organization [facility] Address [address] [place] [address] Care Team Providers Care Demand Planning Analyst Name Role Phone Unavailable Primary Care Provider Unavailabl e Encounter Details Date Type Department Care Team (Late st Contact Info) Description 05/13/2008 Outpatient Historical [facility] PreAdmission Center [address] [place] [id number] Braulio Nixon MD NO ADDRESS ON FILE Social History Tobacco Use Types Packs/Day Years Used Date Smoking Tobacco: Never Assessed Comments No Sex and Gender Information Value Date Recorded Sex Assigned at Not on file Legal Sex Female 6:30 AM PUMP STATION OPERATOR Gender Identity Not on file Sexual Orientation Not on file documented as of this encounter Plan of Treatment Not on file documented as of this encounter Procedures Procedure Name Priority Date/Time Associated Diagnosis Comments XR CHEST PA OR AP 1 VW Routine 8 1:11 PM PUMP STATION OPERATOR PT AND APTT Stat 05/13/2008 12:35 PM PUMP STATION OPERATOR COMPREHENSIVE METABOLIC PANEL Stat 05/13/2008 12:35 PM PUMP STATION OPERATOR CBC WITH DIFFERENTIAL Stat 05/13/2008 12:26 PM PUMP STATION OPERATOR documented in this encounter Results * XR CHEST PA OR AP (05/13/2008 1:11 PM PUMP STATION OPERATOR) Anatomical Region Laterality Modality Chest Other 05/13/2008 1:11 PM PUMP STATION OPERATOR Narrative 05/15/2008 8:19 AM PUMP STATION OPERATOR Exam: Chest - PA Date/Time of [...] (ABNORMAL) COMPREHENSIVE METABOLIC PANEL (05/13/2008 12:35 PM PUMP STATION OPERATOR) OSMOLALITY, CALCULATED 294 275 - 295 mOsm/Kg [facility] GLUCOSE 182(H) 70 - 110 mg/dL [facility] CHLORIDE 106 95 - 110 mEq/L [facility] ALBUMIN/GLOBULIN RATIO 1.6 1.0 - 2.3 [facility] ALKALINE PHOSPHATASE 222(H) 25 - 100 U/L [facility] SODIUM 139 136 - 145 mEq/L [facility] BILIRUBIN TOTAL 0.3 0.3 - 1.2 mg/dL [facility] TOTAL PROTEIN 7.0 6.3 - 8.2 g/dL [facility] BUN 22(H) 7 - 17 mg/dL [facility] AST 21 8 - 33 U/L [facility] CO2 25 22 - 32 mmol/l [facility] ANION GAP 12 9 - 20 mEq/L [facility] ALBUMIN 4.3 3.5 - 5.0 g/dL [facility] POTASSIUM 4.2 3.5 - 5.0 mEq/L [facility] GLOBULIN (CALC) 2.7 2.4 - 3.9 g/dL [facility] CREATININE 0.9 0.7 - 1.2 mg/dL [facility] CALCIUM 9.7 8.4 - 10.5 mg/dL [facility] ALT 22 4 - 36 IU/L [facility] Blood specimen (specimen) 05/13/2008 12:35 PM PUMP STATION OPERATOR 05/13/2008 12:46 PM PUMP STATION OPERATOR us Braulio Nixon MD CHEMISTRY ORDERABLES Final Re sult INTERFACE SYSTEM Refer to clinic/hospital department [facility] CLIA# [id number] [address] [place] [id number] * PT AND APTT (05/13/2008 12:35 PM PUMP STATION OPERATOR) PTT 27.7 22.5 - 36.5 Secs [facility] Comment: Therapeutic Range: Hi-level PE/DVT heparin protocol 80.1 -95.0 sec Lo-level PE/DVT heparin protocol 67.1 - 80.0 sec Cardiac Heparin Protocol 67.1 - 85.0 sec Neuro Heparin Protocol 67.1 - 80.0 sec As of 09/27/2007 note change in APTT Normal Range. INR 1.0 [facility] Comment: Expected Values for INR: DVT/PE Goal INR 2.5; range 2.0 - 3.0 Valve Replacement Tissue Goal INR 2.5; range 2.0 - 3.0 Mechanical Goal INR 3.0; range 2.5 - 3.5 POST-HI Goal INR 2.5; range 2.0 - 3.0 or Goal 3.0; range 2.5 - 3.5 Atrial Fibrillation Goal INR 2.5; range 2.0 - 3.0 Ischemic Stroke Goal INR 2.5; range 2.0 - 3.0 For additional information see Guidelines for Anticoagulation available from the pharmacy Mayra Garcia [phone] PROTIME 14.5 12.8 - 15.8 Secs [facility] Comment:As of 2007 not e change in normal range. Blood specimen (specimen) 05/13/2008 12:35 PM PUMP STATION OPERATOR 05/13/2008 12:46 PM PUMP STATION OPERATOR us Braulio Nixon MD HEMATOLOGY ORDERABLES Edited INTERFACE SYSTEM Refer to clinic/hospital department [facility] CLIA# [id number] [address] [place] [address] * (ABNORMAL) CBC WITH DIFFERENTIAL (05/13/2008 12:26 PM PUMP STATION OPERATOR) MCV 84.1 84.0 - 103.0 Fl [facility] BASOPHILS 0.3 0.0 - 1.0 % [facility] MPV 9.8 8.9 - 12.8 Fl [facility] BASOPHILS ABSOLUTE 0.0 0.0 - 0.2 K/ul [facility] HEMOGLOBIN 14.2 12.0 - 16.0 g/dL [facility] MONOCYTES 9.0 2.0 - 10.0 % [facility] RDW 12.9 11.0 - 14.5 % [facility] MONOCYTE ABSOLUTE 0.8(H) 0.1 - 0.6 K/ul [facility] WBC 9.2 4.8 - 10.8 K/ul [facility] NEUTROPHILS 59.6 42.2 - 75.2 % [facility] MCH 28.6 27.0 - 34.0 pg [facility] NEUTROPHIL ABSOLUTE 5.5 2.0 - 8.0 K/ul [facility] HEMATOCRIT 41.8 36.0 - 46.0 % [facility] PLATELETS 267 140 - 440 K/ul [facility] EOSINOPHIL ABSOLUTE 0.2 0.0 - 0.7 K/ul [facility] EOSINOPHILS 1.9 0.0 - 7.0 % [facility] RBC 4.97 4.20 - 5.40 Mil/ul [facility] MCHC 34.0 30.0 - 35.0 g/dL [facility] LYMPHOCYTE ABSOLUTE 2.7 1.2 - 4.0 K/ul [facility] LYMPHOCYTES 29.2 24.0 - 44.0 % [facility] Blood specimen (specimen) 05/13/2008 12:26 PM PUMP STATION OPERATOR 05/13/2008 1:06 PM PUMP STATION OPERATOR us Braulio Nixon MD HEMATOLOGY ORDERABLES Final R esult INTERFACE SYSTEM Refer to clinic/hospital department [facility] CLIA# [id number] [facility] [place] [address] documented in this encounter Visit Diagnoses Not on filedocumented in this encounter
--- OUTSIDE RECORDS SUMMARY | 2025-06-11 18:03 | XMS_ITS | Clinical Summary ---
Author Organization [facility] Address [address] [place] [address] Care Team Providers Care Landscape Nurseryman Name Role Phone Unavailable Primary Care Provider [...] yrs+ (1 - 1-dose 75+ series) 2017 Annual Wellness Exam 07/10/2024 COVID-19 Vaccine (1 - 2023-2 5 season) 2025 Influenza Series (#1) 2025 Hepatitis B Vaccine Aged Out No longe r eligible based on patient's age to complete this topic Meningococcal B Vaccine Aged Out No l onger eligible based on patient's age to complete this topic
--- OUTSIDE RECORDS SUMMARY | 2025-06-11 18:03 | XMS_ITS | Clinical Summary ---
Author Organization [facility] Address [address] 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 Social History Tobacco Use Types Packs/Day Years Used Date Smoking Tobacco: Former Cigarettes 0 Q uit: 10/10/1998 Alcohol Use Standard Drinks/Week Comments No 0 (1 standard drink = 0.6 oz pur e alcohol) Comments Unknown Sex and Gender Information Value Date Recorded Sex Assigned at Not on file Legal Sex Female 6:41 AM COMPUTERIZED MILL RECORDER Gender Identity Not on file Sexual Orientation Not on file Plan of Treatment Upcoming Encounters Date Type Department Care Team (Late st Contact Info) Description 12/16/2025 1:00 PM CDT Office Visit [facility] [place] [address] [facility] [address] [place] [address] Arabella Schwarz MD [address] [facility] [address] [place] [address] Health Maintenance Due Date Last Done Comments DTAP/TDAP/TD VACCINES (1 - Tdap) 1961 PNEUMOCOCCAL VACCINE 50+ YEARS (1 of 1 - PCV) 03/19/19 92 ZOSTER VACCINE (1 of 2) 1992 OSTEOPOROSIS SCREENING 2007 RSV VACCINE (60+ or ) (1 - 1-dose 75+ series) 2017 INFLUENZA VACCINE (#1) 2025 Medical Devices Implanted Type Area Sinker Puller Device Identifier Shelf Expiration Date Model / Serial / Lot Sn/A - [id number] Implanted:Qty : 1 on 10/30/2008 Biological Bilateral : Vocal Cord [employer] 04/09/2010 [id number] / N/A / [id number] Description:Radiesse Voice 1 ml injected bilateral vocal cords. Insurance [facility]
--- OUTSIDE RECORDS SUMMARY | 2025-06-11 18:03 | XMS_ITS | Encounter Summary ---
Author Organization [facility] Address [address] [place] [address] Care Team Providers Care Energy Management Specialist Name Role Phone Unavailable Primary Care Provider Unavailabl e Encounter Details Date Type Department Care Team (Late st Contact Info) Description 05/13/2008 Outpatient Historical [facility] [place], Braulio Syed MD NO ADDRESS ON FILE Social History Tobacco Use Types Packs/Day Years Used Date Smoking Tobacco: Never Assessed Comments No Sex and Gender Information Value Date Recorded Sex Assigned at Not on file Legal Sex Female 6:30 AM DENTAL CERAMIST ASSISTANT Gender Identity Not on file Sexual Orientation Not on file documented as of this encounter Plan of Treatment Not on file documented as of this encounter Procedures Procedure Name Priority Date/Time Associated Diagnosis Comments CALCIUM LEVEL Routine 05/30/2008 7:15 AM DENTAL CERAMIST ASSISTANT POC GLUCOSE Routine 05/30/2008 4:48 AM DENTAL CERAMIST ASSISTANT CALCIUM LEVEL Routine 05/29/2008 9:25 PM DENTAL CERAMIST ASSISTANT POC GLUCOSE Routine 05/29/2008 6:35 PM DENTAL CERAMIST ASSISTANT POC GLUCOSE Routine 05/29/2008 6:48 AM DENTAL CERAMIST ASSISTANT PATHOLOGY Routine 05/29/2008 6:34 AM DENTAL CERAMIST ASSISTANT documented in this encounter Results * CALCIUM LEVEL (05/30/2008 7:15 AM DENTAL CERAMIST ASSISTANT) CALCIUM 8.8 8.4 - 10.5 mg/dL [facility] Blood specimen (specimen) 05/30/2008 7:15 AM DENTAL CERAMIST ASSISTANT 05/30/2008 7:54 AM DENTAL CERAMIST ASSISTANT us Braulio Nixon MD CHEMISTRY ORDERABLES Final Re sult Performing Organization Address [facility] Phone Number INTERFACE SYSTEM Refer to clinic/hospital department [facility] CLIA# [id number] [address] [place] [address] * (ABNORMAL) POC GLUCOSE (05/30/2008 4:48 AM DENTAL CERAMIST ASSISTANT) GLUCOSE POC 221(H) 60 - 100 mg/dL [facility] Venous blood specimen (specimen) 05/30/2008 4:48 AM DENTAL CERAMIST ASSISTANT 05/31/2008 4:13 AM DENTAL CERAMIST ASSISTANT us Braulio Nixon MD POINT OF CARE TESTING Final R esult Performing Organization Address [facility] Phone Number INTERFACE SYSTEM Refer to clinic/hospital department [facility] CLIA# [id number] [address] [place] [address] * CALCIUM LEVEL (05/29/2008 9:25 PM DENTAL CERAMIST ASSISTANT) CALCIUM 8.7 8.4 - 10.5 mg/dL [facility] Blood specimen (specimen) 05/29/2008 9:25 PM DENTAL CERAMIST ASSISTANT 05/29/2008 9:50 PM DENTAL CERAMIST ASSISTANT us Braulio Nixon MD CHEMISTRY ORDERABLES Final Re sult Performing Organization Address [facility] Phone Number INTERFACE SYSTEM Refer to clinic/hospital [facility] CLIA# [id number] [address] [place] [address] * (ABNORMAL) POC GLUCOSE (05/29/2008 6:35 PM DENTAL CERAMIST ASSISTANT) GLUCOSE POC 104(H) 60 - 100 mg/dL [facility] Venous blood specimen (specimen) 05/29/2008 6:35 PM DENTAL CERAMIST ASSISTANT 05/30/2008 5:50 AM DENTAL CERAMIST ASSISTANT Braulio Nixon MD POINT OF CARE TESTING Final R esult Performing Organization Address [facility] de Phone Number INTERFACE SYSTEM Refer to clinic/hospital department [facility] CLIA# [id number] [address] [place] [address] * (ABNORMAL) POC GLUCOSE (05/29/2008 6:48 AM DENTAL CERAMIST ASSISTANT) GLUCOSE POC 201(H) 60 - 100 mg/dL [facility] Venous blood specimen (specimen) 05/29/2008 6:48 AM DENTAL CERAMIST ASSISTANT 05/29/2008 6:58 AM DENTAL CERAMIST ASSISTANT Braulio Nixon MD POINT OF CARE TESTING Final R esult Performing Organization Address [facility] Phone Number INTERFACE SYSTEM Refer to clinic/hospital department [facility] CLIA# [id number] [address] [place] [address] * PATHOLOGY (05/29/2008 6:34 AM DENTAL CERAMIST ASSISTANT) PATHOLOGY/CYT OLOGY REPORT [facility] Anatomic Pathology Dept [address] [place] [phone] Patient: FELICITAS HENSON Accn No: [id number] Collected: 05/29/2008 6:34:00 AM SURGICAL PATHOLOGY FINAL [...] cm DLS/TKB INTERFACE SYSTEM 05/29/2008 6:34 AM DENTAL CERAMIST ASSISTANT us Braulio Nixon MD PATHOLOGY/CYTOLOGY ORDERABLES Final Result INTERFACE SYSTEM Refer to clinic/hospital department documented in this encounter Visit Diagnoses Not on filedocumented in this encounter
--- OUTSIDE RECORDS SUMMARY | 2025-06-11 18:03 | XMS_ITS | Clinical Summary ---
Author Organization [facility] Address [address] [place] [address] Care Team Providers Care Practicing Md Anesthesiologist Name Role Phone Unavailable Primary Care Provider [...] Years Used Date Smoking Tobacco: Former Cigarettes 36 0 10/10/1962 - 10/10/1998 Alcohol Use Standard Drinks/Week Comments No 0 (1 standard drink = 0.6 oz pur e alcohol) Comments No Sex and Gender Information Value Date Recorded Sex Assigned at Not on file Legal Sex Female 6:30 AM CAROUSEL ATTENDANT Gender Identity Not on file Sexual Orientation [...] (#1) 2025 Medical Devices Implanted Type Area Mash Tub Cooker Device Identifier Shelf Expiration Date Model / Serial / Lot Sn/A - [id number] Implanted:Qty: 1 on 10/30/2008 at [facility] Biological Bilateral : Vocal Cord [employer] 04/09/2010 [id number] / N/A / [id number] Description:Radiesse Voice 1 ml injected bilateral vocal cords. Procedures Procedure Name Priority Date/Time Associated Diagnosis Comments HEMOGLOBIN A1C Routine 04/30/2008 from Last 3 Months or Most Recently Relevant to Health Maintenance Results * HEMOGLOBIN A1C (04/30/2008) Blood specimen (specimen) us Historical Provider CHEMISTRY ORDERABLES Final R esult [facility] [address] [place] [address] from Last 3 Months or Most Recently Relevant to Health Maintenance Insurance MEDICARE PART A AND B [employer] Advance Directives For more information, please contact: [phone] * Full Code (Latest Code Status on File) Date Activated Date Inactivated Comments 10/30/2008 10:52 AM 10/31/2008 2:02 AM * Full Code Date Activated Date Inactivated Comments 10/30/2008 9:41 AM 10/30/2008 10:52 AM * Full Code Date Activated Date Inactivated Comments 10/30/2008 7:16 AM 10/30/2008 9:41 AM
--- NOTE | 2025-06-11 18:27 | XRR_ITS ---
PROCEDURE INFORMATION: Exam: XR Chest Exam date and time: 06/11/2025 6:51 PM Age: 85 years old Clinical indication: Cough and dyspnea; Additional info: Dyspnea/cough TECHNIQUE: Imaging protocol: Radiologic exam of the chest. Views: 1 view. COMPARISON: CR XR chest 1V portable [id number] 02/26/2025 1:33 PM FINDINGS: Tubes, catheters and devices: A pacemaker device is present, and its leads are in appropriate position. This devices unchanged from the last exam. Lungs: Calcified 4-5 mm right upper lobe granuloma is unchanged. Pleural spaces: [id number] left pleural effusion. Small right pleural effusion. Heart/Mediastinum: Unremarkable. No cardiomegaly. Bones/joints: Unremarkable. XR/XR chest 1V portable [id number] IMPRESSION: [id number] left and small right pleural effusions.
--- NOTE | 2025-06-11 18:51 | W.ED.SOB ---
HPI - SOB/Dyspnea General: Chief Complaint: Shortness of Breath/Dyspnea Stated Complaint: SOB Time Seen by Provider: 06/11/25 18:35 History of Present Illness: HPI Narrative: 85-year-old female presents emergency room complaining of increasing swelling in her legs, rapid weight gain and increasing shortness of breath worsening orthopnea. Patient has a history of congestive heart failure. She has had some mild chest discomfort as well as. Weight gain and the shortness of breath been going on coming on for the last couple of days worsening the chest discomfort was overnight began yesterday afternoon. She denies any fever sweats chills. No vomiting or diarrhea. No abdominal pain. Patient is diabetic and she has a known history of coronary artery disease. Associated symptoms: Reports chest pain and orthopnea; Deny abdominal pain or fever(s) Related Data Home Medications ?Medication ?Instructions ?Recorded ?Confirmed aspirin 81 mg tablet,delayed 81 mg PO QAM 08/09/23 06/11/25 release cascara sagrada 500 mg capsule 500 mg PO BEDTIME PRN Constipation 09/05/23 06/11/25 cholecalciferol (vitamin D3) 125 5,000 unit PO QAM 09/05/23 06/11/25 mcg (5,000 unit) tablet (Vitamin D3) cranberry concentrate-ascorbic 1 cap PO QAM 09/05/23 06/11/25 acid 140 mg-100 mg capsule (Cranberry Plus Vitamin C) tolterodine 2 mg tablet 2 mg PO QAM 09/05/23 06/11/25 Previous Rx's ?Medication ?Instructions ?Recorded Power chair repair #1 ea 09/27/22 albuterol sulfate 2.5 mg/3 mL 2.5 mg (3 mL) inhalation QID PRN 02/23/23 (0.083 %) solution for nebulization shortness of breath or wheezing #360 mL diazepam 2 mg tablet (Valium) 2 mg PO TID PRN muscle spasm #90 03/05/24 tabs flash glucose scanning reader #1 ea 04/08/24 (FreeStyle William 2 [place]) E0627 Power Chair with lift #1 ea 04/21/24 Roho Wheelchair Coushion [id number] #1 ea 04/21/24 albuterol sulfate 90 mcg/actuation 2 puff inhalation QID PRN 10/13/24 aerosol inhaler Shortness Of Breath #6.7 grams insulin aspart U-100 100 unit/mL See Rx Instructions SUBCUT TID #15 04/21/24 (3 mL) subcutaneous pen (Novolog mL FlexPen U-100 Insulin aspart) nitroglycerin 0.4 mg sublingual 0.4 mg sublingual Q5M PRN chest 09/23/24 tablet pain 30 days #30 tabs omeprazole 20 mg capsule,delayed 20 mg PO DAILY #30 caps 09/26/24 release isosorbide mononitrate 30 mg 30 mg PO DAILY #90 tabs 10/17/24 tablet,extended release 24 hr clopidogrel 75 mg tablet (Plavix) 75 mg PO DAILY #90 tabs 11/16/24 flash glucose sensor (FreeStyle #7 ea 12/11/24 William 2 Sensor kit) insulin glargine U-300 conc 300 40 unit (0.1333 mL) SUBCUT DAILY 12/11/24 unit/mL (3 mL) subcutaneous pen #12 mL (Toujeo Max U-300 SoloStar) lidocaine 5 % topical patch 1 patch topical [id number] #90 ea 12/11/24 prednisone 10 mg tablet See Rx Instructions PO .COMPLEX 01/13/25 PRN joint pain #30 tabs prednisone 5 mg tablet 5 mg PO DAILY #90 tabs 01/13/25 budesonide 160 mcg-glycopyr 9 2 inh inhalation BID PRN Shortness 03/13/25 mcg-formot 4.8 mcg/actuation HFA Of Breath #10.7 grams inhaler (Breztri Aerosphere) cyclobenzaprine 10 mg tablet 10 mg PO .at bedtime #90 tabs 03/13/25 furosemide 20 mg tablet 20 mg PO QAM #90 tabs 03/13/25 levothyroxine 100 mcg tablet 100 mcg PO QAM #90 tabs 03/13/25 simvastatin 20 mg tablet 20 mg PO BEDTIME #90 tabs 03/13/25 hydrocodone 5 mg-acetaminophen 325 1 tab PO Q8H PRN pain #20 tabs 04/08/25 mg tablet polyethylene glycol 3350 17 4 g PO DAILY #119 grams 04/08/25 gram/dose oral powder (Miralax) pregabalin 150 mg capsule 150 mg PO TID #270 caps 05/05/25 Allergies Allergy/AdvReac Type Severity Reaction Status Date / Time pneumococcal vaccine Allergy ALGY-Rash Verified 06/11/25 18:12 Sulfa (Sulfonamide Allergy RASH Verified 06/11/25 18:12 Antibiotics) Review of Systems Const: Denies: fever(s) or chills Card: Reports: chest pain, edema, swelling of feet/ankles, dyspnea on exertion and orthopnea Resp: Denies: dyspnea GI: Denies: abdominal pain : Denies: dysuria, urinary frequency or urinary urgency Musc: Denies: neck pain or back pain Skin/Breast: Denies: rash PFSH ED PFSH: Medical History High risk medication use Seropositive rheumatoid arthritis of multiple sites Generalized weakness Atherosclerosis of [place] coronary artery without angina pectoris (~10/29/24) Chronic lymphocytic leukemia Urolithiasis Left ureteral calculus Myasthenia gravis UTI (urinary tract infection) Diabetes mellitus with hyperglycemia, with long-term current use of insulin Environmental and seasonal allergies Essential hypertension, benign Pneumonia Hyperlipidemia Vitamin D deficiency Vitamin B 12 deficiency COPD (chronic obstructive pulmonary disease) Depression with anxiety Hypothyroidism Neuropathy Surgical History History of basal cell carcinoma (BCC) excision History of hysterectomy with bilateral oophorectomy For cervical cancer History of appendectomy History of colonoscopy with polypectomy (11/17/21) Pacemaker 04/05/2019 H/O thyroidectomy Total thyroidectomy followed by radioactive iodine ablation for thyroid cancer H/O reduction of closed fracture left wrist 10/23/2015 Hx of cholecystectomy H/O brain surgery Craniotomy x 4 for meningioma H/O esophagogastroduodenoscopy (11/17/21) 2013 Family History Mother , AT 92 Anesthesia complication CAD (coronary artery disease) Cancer Dementia Stroke Brother CAD (coronary artery disease) Cancer Suicide Sister CAD (coronary artery disease) Suicide Grandmother Cancer Dementia Stroke Family/Other Cancer Dementia Stroke Brother Suicide Brother Suicide Father , IN HIS 60'S Alcoholic Liver disease Denies family history of Diabetes Clotting disorder Chronic kidney disease (CKD) Bleeding disorder Lung disease Social History Smoking and tobacco/nicotine status: former use of tobacco/nicotine Quit status (tobacco/nicotine): has quit using Year quit tobacco: 1997 Former quit date comment: 1 ppd X 45 years Second hand smoke exposure: No Alcohol intake: unknown Substance/Drug Use: unknown Adopted: No Caregiver/support person: Yes Lives independently: No Household members: family Housing: House Marital status: / Number of children: 2 service: No Current occupational status: retired Current occupational exposures/hazards: No Do you think of yourself as: Straight/Heterosexual Physical Exam Const: GENERAL APPEARANCE: cooperative ORIENTATION/CONSCIOUSNESS: Yes awake, Yes oriented to person, Yes oriented to place and Yes oriented to time HENMT: COMMON NORMALS: normocephalic and atraumatic HEAD & SCALP: normocephalic and atraumatic Resp: COMMON NORMALS: normal respiratory effort, No retractions, No use of accessory muscles and clear to auscultation bilaterally AUSCULTATION: clear to auscultation bilaterally Cardio: COMMON NORMALS: regular rate, regular rhythm and No murmurs present (Cardio) RATE: regular rate RHYTHM: regular rhythm GI: COMMON NORMALS: Soft to palpation and No hepatosplenomegaly present AUSCULTATION: Yes normoactive bowel sounds PALPATION: Yes Soft to palpation, No Tenderness to palpation present (GI), No Guarding due to palpation present (GI) and Yes No hepatosplenomegaly present Extremity: COMMON NORMALS: normal to inspection, capillary refill normal and no calf tenderness GENERAL: Yes edema (Bilateral lower extremities) Neuro: SENSORIUM/ORIENTATION: Yes oriented to person, Yes oriented to place and Yes oriented to time Skin: COMMON NORMALS: no rashes or lesions noted GENERAL SKIN EXAM: no rashes or lesions noted Course Vital Signs: Vital signs: Vital Signs Temperature 98.7 F 06/11/25 18:07 Pulse Rate 77 06/11/25 18:07 Respiratory Rate 25 H 06/11/25 18:07 Blood Pressure 132/56 06/11/25 18:07 Pulse Oximetry 91 06/11/25 18:07 Oxygen Delivery Me thod Room Air 06/11/25 18:07 Discharge Plan Discharge Condition: Stable Prescriptions: No Action albuterol sulfate 2.5 mg /3 mL (0.083 %) solution for nebulization 2.5 mg inhalation QID PRN (Reason: shortness of breath or wheezing) Qty: 360 3RF (DME) Sae Wheelchair Coushion E2622 See Rx Instructions .Route .MEDSUPPLY Qty: 1 0RF Rx Instructions: use in wheelchair or powerchair (DME) E0627 Power Chair with lift See Rx Instructions .Route .MEDSUPPLY Qty: 1 0RF Rx Instructions: use daily for mobility 99 months albuterol sulfate 90 mcg/actuation HFA aerosol inhaler 2 puff INHALATION QID PRN (Reason: Shortness Of Breath) Qty: 6.7 1RF insulin aspart U-100 [Novolog FlexPen U-100 Insulin] 100 unit/mL (3 mL) insulin pen See Rx Instructions SUBCUT TID Qty: 15 2RF Rx Instructions: sliding scale bid nitroglycerin 0.4 mg tablet, sublingual 0.4 mg sublingual Q5M PRN (Reason: chest pain) 30 Days Qty: 30 3RF Rx Instructions: until response; do not exceed 3 doses per episode levothyroxine 100 mcg tablet 100 mcg PO QAM Qty: 90 1RF Breztri Aerosphere 160-9-4.8 mcg/actuation HFA aerosol inhaler 2 inh inhalation BID PRN (Reason: Shortness Of Breath) Qty: 10.7 1RF cyclobenzaprine 10 mg tablet 10 mg PO .at bedtime Qty: 90 1RF furosemide 20 mg tablet 20 mg PO QAM Qty: 90 1RF simvastatin 20 mg tablet 20 mg PO BEDTIME Qty: 90 1RF diazepam [Valium] 2 mg tablet 2 mg PO TID PRN (Reason: muscle spasm) Qty: 90 5RF prednisone 10 mg tablet See Rx Instructions PO .COMPLEX PRN (Reason: joint pain) Qty: 30 1RF Rx Instructions: take 1 or 2 tab daily up to 7 days prn joint pain flare PO PRN; prednisone 5 mg tablet 5 mg PO DAILY Qty: 90 1RF insulin glargine U-300 conc [Toujeo Max U-300 SoloStar] 300 unit/mL (3 mL) insulin pen 40 unit SUBCUT DAILY Qty: 12 2RF lidocaine 5 % adhesive patch,medicated 1 patch topical [id number] Qty: 90 1RF (DME) FreeStyle William 2 Sensor Kit See Rx Instructions .ROUTE .MEDSUPPLY Qty: 7 11RF Rx Instructions: change every 14 days pregabalin 150 mg capsule 150 mg PO TID Qty: 270 1RF (DME) Power chair repair See Rx Instructions .Route .MEDSUPPLY Qty: 1 0RF Rx Instructions: Repair power chair and maintenance (DME) FreeStyle William 2 [place] Misc See Rx Instructions .ROUTE .MEDSUPPLY Qty: 1 0RF Rx Instructions: As directed isosorbide mononitrate 30 mg tablet extended release 24 hr 30 mg PO DAILY Qty: 90 3RF aspirin 81 mg tablet,delayed release (DR/EC) 81 mg PO QAM Cranberry Plus Vitamin C 140-100 mg Capsule 1 cap PO QAM tolterodine 2 mg Tablet 2 mg PO QAM cascara sagrada 500 mg Capsule 500 mg PO BEDTIME PRN (Reason: Constipation) cholecalciferol (vitamin D3) [Vitamin D3] 125 mcg (5,000 unit) Tablet 5,000 unit PO QAM omeprazole 20 mg capsule,delayed release(DR/EC) 20 mg PO DAILY Qty: 30 0RF clopidogrel [Plavix] 75 mg tablet 75 mg PO DAILY Qty: 90 3RF hydrocodone-acetaminophen 5-325 mg tablet 1 tab PO Q8H PRN (Reason: pain) Qty: 20 0RF polyethylene glycol 3350 [Miralax] 17 gram/dose powder 4 g PO DAILY Qty: 119 0RF Referrals: Adam Anguiano FNP-C [Primary Care Provider, Family Practice] Print Language: Icelandic Coding Level of Care Code ED Housekeeper And 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
[2025-06-11 19:00] LABS: Hematocrit 36.4 % (36-47); Hemoglobin 11.50 g/dL (11.27-16.99); Mean Corpuscular HGB Conc 31.6 g/dL (30-55); Mean Corpuscular Hemoglobin 28.2 pg (27-33); Mean Corpuscular Volume 89.2 fl (85-98); Platelet Count 195 10^3/cmm (157-399); Red Blood Count 4.08 10^6/uL (3.85-5.65)
[2025-06-11 19:23] LABS: White Blood Count 87.54 10^3/uL (3.29-11.43)
[2025-06-11 19:24] LABS: NT Pro B Type Natriuretic Pept 307 pg/mL (0-450); Procalcitonin 0.14 ng/mL (0-0.5)
[2025-06-11 19:25] LABS: Absolute Segmented Neutrophil 6.1 10/cmm (1.6-7.1); Atypical Lymphs 14.0 % (0-5); Total Cells Counted 100 (0-100)
[2025-06-11 19:26] LABS: Band Neutrophils Absolute 0.0 10^3/cmm (0.0-1.2)
[2025-06-11] MEDS: FUROsemide 10 mg/mL SDV 10mL 60 MG IVP (19:30)
[2025-06-11 19:36] LABS: Alanine Aminotransferase 10 U/L (0-33); Albumin Level 3.9 g/dL (3.5-5.2); Alkaline Phosphatase 97 U/L (35-105); Anion Gap 20.1 (5-19); Aspartate Amino Transferase 20 U/L (0-32); Blood Urea Nitrogen 16 mg/dL (8-23); Calcium 8.4 mg/dL (8.5-10.5); Carbon Dioxide 23 mmol/L (22-29); Chloride 100 mmol/L (98-107); Globulin 3.0 g/dL (1.3-4.6); Glucose 150 mg/dL (65-115); Osmolality Calculated 292 mOsm/kg (285-295); Potassium 4.1 mmol/L (3.5-5.1); Sodium 139 mmol/L (136-145); Total Protein 6.9 g/dL (6.6-8.7)
[2025-06-11 19:48] LABS: Glucose Urine UA Negative (Normal); Nitrate Urine Positive (Negative); Specific Gravity, Urine 1.010 (1.005-1.030)
[2025-06-11 19:54] LABS: Add Urine Microscopic? YES
[2025-06-11 19:58] LABS: Respiratory Syncytial Virus Ce NEGATIVE (Negative); SARS-CoV-2 PCR NEGATIVE (Negative)
--- NOTE | 2025-06-11 19:58 | ECG_ITS ---
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 Measurements Intervals [place] Rate: 92 P: 70 AR: 166 QRS: -52 QRSD: 105 T: 57 QT: 382 QTc: 473 Interpretive Statements SINUS RHYTHM WITH FREQUENT VENTRICULAR PREMATURE COMPLEXES LOW QRS VOLTAGE [QRS DEFLECTION < 0.5/1.0 mV IN LIMB/CHEST LEADS] INCOMPLETE RIGHT BUNDLE BRANCH BLOCK [90+ ms QRS DURATION, TERMINAL R IN V1/V2, 40+ ms S IN I/aVL/V4/V5/V6] LEFT ANTERIOR FASCICULAR BLOCK [QRS AXIS <= -45, QR IN I, RS IN II] ST DEVIATION AND MODERATE T-WAVE ABNORMALITY, CONSIDER ANTERIOR ISCHEMIA. TYPE 3 BRUGADA PATTERN (NON-DIAGNOSTIC) [COVED/SADDLEBACK ST ELEVATION > 0.1mV IN 2 OF V1-3] Compared to ECG 02/26/2025 16:09:57 Ventricular premature complex(es) now present.Incomplete right bundle-branch block now present.Left anterior fascicular block now present. T-wave abnormality now present. 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 [id number]
[2025-06-11 20:34] LABS: Troponin(5th) Baseline 16 ng/L (0-10)
[2025-06-11] MEDS: cefTRIAXone 2,000 mg SDV 2000 MG IVP (21:42)
--- NOTE | 2025-06-11 21:58 | ECG_ITS ---
[facility] [place] [facility] Date: 2025-06-11 Pat Name: Felicitas Augustine Department: Room: EDIP Gender: Female Rf Technician: : 1940 Requested By: Israel Torres Order Number: [id number] Karma MD: Aimee Ramos M.D. Measurements Intervals [place] Rate: 91 P: 67 MI: 152 QRS: -55 QRSD: 106 T: 55 QT: 368 QTc: 454 Interpretive Statements SINUS RHYTHM LOW QRS VOLTAGE IN EXTREMITY LEADS [QRS DEFLECTION < 0.5 mV IN LIMB LEADS] PATTERN CONSISTENT WITH PULMONARY DISEASE INCOMPLETE RIGHT BUNDLE BRANCH BLOCK [90+ ms QRS DURATION, TERMINAL R IN V1/V2, 40+ ms S IN I/aVL/V4/V5/V6] LEFT ANTERIOR FASCICULAR BLOCK [QRS AXIS <= -45, QR IN I, RS IN II] MODERATE ST DEPRESSION [0.05+ mV ST DEPRESSION] Compared to ECG 06/11/2025 18:41:25 Ventricular premature complex(es) no longer present T-wave abnormality no longer present Possible ischemia no longer present ST (T wave) deviation still present Electronically Signed On 06-11-2025 23:41:09 [employer]AT[employer]ED TRUCK 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 [email or web address]
--- NOTE | 2025-06-11 22:37 | PM.HP ---
Providers/Chief Complaint Admitting Physician: Avtar Grant MD Primary Care Provider: Adam Anguiano, RHETT-C Chief Complaint: SOB\Swollen Legs History of Present Illness Felicitas Augustine is a 85 year old female with history significant for COPD, CLL, CAD, and diabetes, who presents with complaints of shortness of breath. Son is present and supplements the history. I am told the patient had a clinic appointment today for swelling which she completed. While there, labs were drawn and the patient was sent home. Of note, the patient does have a baseline degree of shortness of breath. However, while at home her shortness of breath became severe enough to the point the patient asked her son to be delivered to the ED. Son mentions there was concern for congenital heart failure during her medical vision. There has been report of 11lbs of unintentional weight gain over the past month. While home, son did try to provide his own supply of O2 to the patient without relief. Patient endorses chest pain today as well but not during my visit. No fevers, dysuria, nausea, or vomiting. There is a productive cough of note. Medications/Allergies Home Medications ?Medication ?Instructions ?Recorded ?Confirmed ?Last Taken ?Type Power chair repair #1 ea 09/27/22 06/11/25 01/13/23 Rx albuterol sulfate 2.5 mg/3 mL 2.5 mg (3 mL) inhalation QID PRN 02/23/23 06/11/25 Unknown Rx (0.083 %) solution for nebulization shortness of breath or wheezing #360 mL aspirin 81 mg tablet,delayed 81 mg PO QAM 08/09/23 06/11/25 11/13/24 History release cascara sagrada 500 mg capsule 500 mg PO BEDTIME PRN Constipation 09/05/23 06/11/25 Unknown History cholecalciferol (vitamin D3) 125 5,000 unit PO QAM 09/05/23 06/11/25 11/13/24 History mcg (5,000 unit) tablet (Vitamin D3) cranberry concentrate-ascorbic 1 cap PO QAM 09/05/23 06/11/25 11/13/24 History acid 140 mg-100 mg capsule (Cranberry Plus Vitamin C) tolterodine 2 mg tablet 2 mg PO QAM 09/05/23 06/11/25 11/13/24 History diazepam 2 mg tablet (Valium) 2 mg PO TID PRN muscle spasm #90 03/05/24 06/11/25 11/13/24 Rx tabs flash glucose scanning reader #1 ea 04/08/24 06/11/25 Unknown Rx (FreeStyle William 2 [place]) E0627 Power Chair with lift #1 ea 04/21/24 06/11/25 Unknown Rx Roho Wheelchair Coushion E2622 #1 ea 04/21/24 06/11/25 Unknown Rx albuterol sulfate 90 mcg/actuation 2 puff inhalation QID PRN 04/21/24 06/11/25 Unknown Rx aerosol inhaler Shortness Of Breath #6.7 grams insulin aspart U-100 100 unit/mL See Rx Instructions SUBCUT TID #15 04/21/24 06/11/25 11/14/24 18:00 Rx (3 mL) subcutaneous pen (Novolog mL FlexPen U-100 Insulin aspart) nitroglycerin 0.4 mg sublingual 0.4 mg sublingual Q5M PRN chest 09/23/24 06/11/25 Unknown Rx tablet pain 30 days #30 tabs omeprazole 20 mg capsule,delayed 20 mg PO DAILY #30 caps 09/26/24 06/11/25 11/13/24 Rx release isosorbide mononitrate 30 mg 30 mg PO DAILY #90 tabs 10/17/24 06/11/25 11/13/24 Rx tablet,extended release 24 hr clopidogrel 75 mg tablet (Plavix) 75 mg PO DAILY #90 tabs 11/16/24 06/11/25 Unknown Rx flash glucose sensor (FreeStyle #7 ea 12/11/24 06/11/25 Unknown Rx William 2 Sensor kit) insulin glargine U-300 conc 300 40 unit (0.1333 mL) SUBCUT DAILY 12/11/24 06/11/25 Unknown Rx unit/mL (3 mL) subcutaneous pen #12 mL (Toujeo Max U-300 SoloStar) lidocaine 5 % topical patch 1 patch topical [id number] #90 ea 12/11/24 06/11/25 Unknown Rx prednisone 10 mg tablet See Rx Instructions PO .COMPLEX 01/13/25 06/11/25 Unknown Rx PRN joint pain #30 tabs prednisone 5 mg tablet 5 mg PO DAILY #90 tabs 01/13/25 06/11/25 Unknown Rx budesonide 160 mcg-glycopyr 9 2 inh inhalation BID PRN Shortness 03/13/25 06/11/25 Unknown Rx mcg-formot 4.8 mcg/actuation HFA Of Breath #10.7 grams inhaler (Breztri Aerosphere) cyclobenzaprine 10 mg tablet 10 mg PO .at bedtime #90 tabs 03/13/25 06/11/25 Unknown Rx furosemide 20 mg tablet 20 mg PO QAM #90 tabs 03/13/25 06/11/25 Unknown Rx levothyroxine 100 mcg tablet 100 mcg PO QAM #90 tabs 03/13/25 06/11/25 Unknown Rx simvastatin 20 mg tablet 20 mg PO BEDTIME #90 tabs 03/13/25 06/11/25 Unknown Rx hydrocodone 5 mg-acetaminophen 325 1 tab PO Q8H PRN pain #20 tabs 04/08/25 06/11/25 Unknown Rx mg tablet polyethylene glycol 3350 17 4 g PO DAILY #119 grams 04/08/25 06/11/25 Unknown Rx gram/dose oral powder (Miralax) pregabalin 150 mg capsule 150 mg PO TID #270 caps 05/05/25 06/11/25 Unknown Rx cephalexin 500 mg capsule 500 mg PO TID #30 caps 06/11/25 06/11/25 Unknown Rx Allergies Allergy/AdvReac Type Severity Reaction Status Date / Time pneumococcal vaccine Allergy ALGY-Rash Verified 06/11/25 22:57 Sulfa (Sulfonamide Allergy RASH Verified 06/11/25 22:57 Antibiotics) PFSH Acute PFSH: Medical History (Updated 06/11/25 @ 23:34 by Avtar Grant MD) High risk medication use Seropositive rheumatoid arthritis of multiple sites Generalized weakness Atherosclerosis of [place] coronary artery without angina pectoris (~10/29/24) Chronic lymphocytic leukemia Urolithiasis Left ureteral calculus Myasthenia gravis UTI (urinary tract infection) Diabetes mellitus with hyperglycemia, with long-term current use of insulin Environmental and seasonal allergies Essential hypertension, benign Pneumonia Hyperlipidemia Vitamin D deficiency Vitamin B 12 deficiency COPD (chronic obstructive pulmonary disease) Depression with anxiety Hypothyroidism Neuropathy Surgical History History of basal cell carcinoma (BCC) excision History of hysterectomy with bilateral oophorectomy For cervical cancer History of appendectomy History of colonoscopy with polypectomy (11/17/21) Pacemaker 04/05/2019 H/O thyroidectomy Total thyroidectomy followed by radioactive iodine ablation for thyroid cancer H/O reduction of closed fracture left wrist 10/23/2015 Hx of cholecystectomy H/O brain surgery Craniotomy x 4 for meningioma H/O esophagogastroduodenoscopy (11/17/21) 2013 Family History Mother , AT 92 Anesthesia complication CAD (coronary artery disease) Cancer Dementia Stroke Brother CAD (coronary artery disease) Cancer Suicide Sister CAD (coronary artery disease) Suicide Grandmother Cancer Dementia Stroke Family/Other Cancer Dementia Stroke Brother Suicide Brother Suicide Father , IN HIS 60'S Alcoholic Liver disease Denies family history of Diabetes Clotting disorder Chronic kidney disease (CKD) Bleeding disorder Lung disease Social History Smoking and tobacco/nicotine status: former use of tobacco/nicotine Quit status (tobacco/nicotine): has quit using Year quit tobacco: 1997 Former quit date comment: 1 ppd X 45 years Second hand smoke exposure: No Alcohol intake: unknown Substance/Drug Use: unknown Adopted: No Caregiver/support person: Yes Lives independently: No Household members: family Housing: House Marital status: / Number of children: 2 service: No Current occupational status: retired Current occupational exposures/hazards: No Do you think of yourself as: Straight/Heterosexual Vitals/I&O/Wt Last Vital Signs Temp 98.7 F 06/11/25 18:07 Pulse 99 06/11/25 21:41 Resp 28 H 06/11/25 21:41 BP 133/62 06/11/25 21:15 Pulse Ox 95 06/11/25 21:41 O2 Del Method Nasal Cannula 06/11/25 21:41 O2 Flow Rate 6 06/11/25 21:41 Weight last 48 hrs Weight 68.039 kg Physical Exam Narrative: GENERAL: The patient is alert and oriented times four. In respiratory distress HEENT: No significant pallor, icterus or lymphadenopathy.Oral cavity: There are no mucous membrane lesions. NECK: Trachea appears to be central. No masses noted. No JVD or thyromegaly appreciated. RESPIRATORY: Chest is symmetrical. She is having labored breathing. Audible wheezes appreciated without stethoscope use BREASTS: Deferred. HEART: The heart sounds are normal. No S3 or S4. No significant murmurs. No pericardial rub. 3-4+ pitting edema to the bilateral lower extremities : Deferred. RECTAL: Deferred. LYMPHATIC: No lymphadenopathy noted in the neck. MUSCULOSKELETAL: No acute joint deformities or swelling SKIN: There are no significant rashes or ecchymosis NEUROPSYCHIATRIC: The patient is alert and oriented x4. Moves all extremities spontaneously. Urinary Catheter Management: Vasquez: Cath Placed During This Visit: yes Urinary Catheter Date of Insertion: 06/11/25 Urinary Catheter Time of Insertion: 20:17 Data 06/11/25 18:52 06/11/25 18:52 A&P Assessment and plan 1. Bilateral pleural effusion: 2. CHF (congestive heart failure): 3. Acute exacerbation of chronic obstructive pulmonary disease (COPD): 4. Acute hypoxic respiratory failure: Plan: New CHF, not otherwise specified Volume overload CAD - Suggested with dyspnea, unintentional weight gain, and new pleural effusions - Check complete echo - Diuresis with 40mg IV lasix BID - Strict I&Os - Daily weights - Cardiology consult in the AM - GDMT prior to discharge as tolerated - Coninue ASA and plavix, statin Acute exacerbation of COPD Left>Right pleural effusions Acute hypoxic respiratory failure - U/S of the thorax to assess if there is a drainable amount of pleural fluid - O2 as needed - Scheduled and PRN duonebs - Check Mg level - Procalcitonin level noted at 0.14. Hold abx Type 2 DM - Continue home long-acting insulin - SSI low CLL - Leukocytosis due to this - Monitor Hypothyoidism - Update TSH and continue synthroid Anxiety - PRN ativan PDMP PDMP Reviewed: Not Reviewed Attestations Medical Necessity Statement*: Patient will require greater than two midnights inpatient for proper evaluation of her respiratory failure and suspected CHF Coding Level of Care Code Acute Code for Chg Fwd Diagnoses Bilateral pleural effusion J90 CHF (congestive heart failure) I50.9 Acute exacerbation of chronic obstructive pulmonary disease (COPD) J44.1 Acute hypoxic respiratory failure J96.01
--- NOTE | 2025-06-11 23:14 | USCV_ITS ---
Felicitas Augustine Age: 85 Gender: F : 1940 Exam Date: 06/11/2025 23:30 Ordering Phys: Avtar Grant MD Technologist: SHAN [place] [facility] [place]: SOB, CHF? History of COPD, CLL, CAD s/p PCI, DM, pacer BP: 141 / 55 HR: 86 Rhythm: Paced Rhythm Technical Quality: Adequate MEASUREMENTS (Male / Female) Normal Values 2D ECHO LV Diastolic Diameter PLAX 3.5 cm 4.2 - 5.9 / 3.9 - 5.3 cm IVS Diastolic Thickness 1.1 cm 0.6 - 1.0 / 0.6 - 0.9 cm IVS Systolic Thickness 1.8 cm LVPW Diastolic Thickness 1.5 cm 0.6 - 1.0 / 0.6 - 0.9 cm LVPW Systolic Thickness 1.6 cm LVOT Diameter 1.8 cm LV Ejection Fraction 2D Teich 71.1 % LV Ejection Fraction MOD 4C 60.5 % LV Ejection Fraction MOD 2C 38.7 % LV Ejection Fraction 2C AL 39.1 % LA Diameter 2.7 cm Aorta at Sinotubular Diameter 2.8 cm IVC Diameter 0.8 cm M-MODE LA Ao Ratio MM 1.1 AV Cusp Separation MM 1.7 cm DOPPLER AV Peak Velocity 152.0 cm/s LVOT Peak Velocity 92.0 cm/s AV Area Cont Eq vti 1.8 cm squared AV Area Cont Eq pk 1.5 cm squared MV Peak Velocity 137.0 cm/s MV Area PHT 3.6 cm squared Mitral E to A Ratio 0.7 TV Peak E Velocity 63.0 cm/s PV Peak Velocity 130.0 cm/s FINDINGS Left Ventricle Normal left ventricular size and systolic function, EF 71%.mild left ventricular hypertrophy. Grade I/IV diastolic dysfunction (abnormal relaxation filling pattern), normal to mildly elevated filling pressures. Mild hypokinesia of the basal inferior wall segment Right Ventricle Normal right ventricular size and systolic function. Right Atrium Normal right atrial size. Left Atrium Normal left atrial size. IA Septum Normal appearance of the interatrial septum. Mitral Valve Moderate mitral annular calcification. Aortic Valve Thickened aortic valve. Mild aortic valve calcification. Tricuspid Valve Trace to mild tricuspid valve regurgitation. The PA pressure could not be calculated because of the poor Doppler signals Pulmonic Valve Pulmonic valve not well visualized. Pericardium No pericardial effusion. Aorta Normal aortic annulus size. IVC Normal IVC dimension with <50% respiratory change of the inferior vena cava. CONCLUSIONS Normal left ventricular size and systolic function, EF 71%.mild left ventricular hypertrophy. Grade I/IV diastolic dysfunction (abnormal relaxation filling pattern), normal to mildly elevated filling pressures. Mild hypokinesia of the basal inferior wall segment. Moderate mitral annular calcification. Thickened aortic valve. Mild aortic valve calcification. Trace to mild tricuspid valve regurgitation. The PA pressure could not be calculated because of the poor Doppler signals. There is no pericardial effusion. There are no intracardiac masses. Compared to the study from 03/20/2019, there may not be a significant change. Dr Aimee Ramos MD [facility] (Electronically Signed) Final Date: 12 June 2025 08:21 S
[2025-06-11 23:57] LABS: Magnesium 2.5 mg/dL (1.7-2.3)
[2025-06-12] VITALS (68 sets, daily range): BP systolic 103–157; BP diastolic 52–100; PULSE 63–99; RESP 15–29; TEMP 36.4–36.8; O2SAT 88–100
--- NOTE | 2025-06-12 01:29 | PC.NURSE ---
report given to jeff CHAUDHRY
[2025-06-12 01:55] LABS: Troponin 5 6HR 15.16 ng/L (0-10)
--- NOTE | 2025-06-12 01:58 | ECG_ITS ---
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: : 1940 Requested By: Israel Torres Order Number: [id number] Reading MD: KARLOS GIORDANO Measurements Intervals [place] Rate: 93 P: 57 [place]: 155 QRS: -27 QRSD: 85 T: 46 QT: 360 QTc: 448 Interpretive Statements SINUS RHYTHM WITH FREQUENT VENTRICULAR PREMATURE COMPLEXES BORDERLINE LEFT AXIS DEVIATION [QRS AXIS < -20] LOW QRS VOLTAGE IN PRECORDIAL LEADS [QRS DEFLECTION < 1.0 mV IN CHEST LEADS] PATTERN CONSISTENT WITH PULMONARY DISEASE POSSIBLE RIGHT VENTRICULAR CONDUCTION DELAY [RSR (QR) IN V1/V2] MARKED ST ELEVATION, CONSIDER ANTEROSEPTAL INJURY [MARKED ST ELEVATION W/O NORMALLY INFLECTED T-WAVE IN V1-V4] TYPE 3 BRUGADA PATTERN (NON-DIAGNOSTIC) [COVED/SADDLEBACK ST ELEVATION > 0.1mV IN 2 OF V1-3] Electronically Signed On 06-14-2025 18:40:23 SALES ENGINEER by KARLOS GIORDANO [id number]
[2025-06-12 02:05] LABS: Troponin 5 6HR Delta -0.84 ng/L (0-12)
--- NOTE | 2025-06-12 02:09 | PC.NURSE ---
THIS RN ASSUMED CARE @0100. PT PLACED INTO A HOSPITAL BED - PT IS RESTING IN BED COMFORTABLY, WITH PATENT AIRWAY EVEN RESPIRATIONS, IN NO OBVIOUS SIGNS OF DISTRESS.
[2025-06-12] MEDS: FUROsemide 10 mg/mL SDV 4mL 40 MG IVP ×2 (05:37→17:45)
[2025-06-12 09:13] LABS: Hematocrit 35.3 % (36-47); Hemoglobin 11.00 g/dL (11.27-16.99); Mean Corpuscular HGB Conc 31.2 g/dL (30-55); Mean Corpuscular Hemoglobin 27.2 pg (27-33); Mean Corpuscular Volume 87.4 fl (85-98); Platelet Count 177 10^3/cmm (157-399); Red Blood Count 4.04 10^6/uL (3.85-5.65)
--- NOTE | 2025-06-12 09:34 | PC.PHAR ---
Pt's son helps take care of medications. Pt uses [facility] in [place] and [facility]. Verified medications with son (Jorge [phone]) this am 05/13/25
[2025-06-12 09:35] LABS: Anion Gap 17.8 (5-19); Blood Urea Nitrogen 19 mg/dL (8-23); Calcium 8.7 mg/dL (8.5-10.5); Carbon Dioxide 27 mmol/L (22-29); Chloride 96 mmol/L (98-107); Glucose 258 mg/dL (65-115); Osmolality Calculated 295 mOsm/kg (285-295); Potassium 3.8 mmol/L (3.5-5.1); Sodium 137 mmol/L (136-145); Thyroid Stimulating Hormone 3.68 uIU/mL (0.27-4.20)
[2025-06-12 09:56] LABS: Slide Review Slide Review Perform
[2025-06-12 09:58] LABS: Total Cells Counted 100 (0-100); White Blood Count 75.56 10^3/uL (3.29-11.43)
[2025-06-12 09:59] LABS: Absolute Segmented Neutrophil 5.3 10/cmm (1.6-7.1); Atypical Lymphs 91.0 % (0-5); Band Neutrophils Absolute 0.0 10^3/cmm (0.0-1.2)
--- NOTE | 2025-06-12 13:55 | P.PN_ITS ---
Subjective 2 Subjective: Felicitas Augustine is a 85 year old female with history significant for COPD, CLL, CAD, and diabetes, who presents with complaints of shortness of breath. Son is present and supplements the history. I am told the patient had a clinic appointment today for swelling which she completed. While there, labs were drawn and the patient was sent home. Of note, the patient does have a baseline degree of shortness of breath. However, while at home her shortness of breath became severe enough to the point the patient asked her son to be delivered to the ED. Son mentions there was concern for congenital heart failure during her medical vision. There has been report of 11lbs of unintentional weight gain over the past month. While home, son did try to provide his own supply of O2 to the patient without relief. Patient endorses chest pain today as well but not during my visit. No fevers, dysuria, nausea, or vomiting. There is a productive cough of note. 06/12/25: Patient resting comfortably and conversational with son who is POA at bedside assisting with report. Patient reports that for the last 2 weeks she has been shortness of breath and experienced air hunger and panic. After her outpatient appointment she became progressively worse and came last night via private vehicle. She wants to note that she has severe progressive weakness with her history of myasthenia gravis and uses a powered wheelchair at baseline. Patient educated on new CHF and Lasix along with strict TENA and daily weights to measure her 11 pound weight gain that is occurred over the last [address] Ramos was consulted as this is new CHF- patient has seen him in the past outpatient for prior cardiac assessment. She will need home health at discharge. She has Medicare, she is a [employer] coverage. Vitals/I&O/Wt Last Vital Signs Temp 98.3 F 06/12/25 08:00 Pulse 71 06/12/25 11:42 Resp 18 06/12/25 11:42 BP 103/55 06/12/25 08:00 Pulse Ox 96 06/12/25 11:42 O2 Del Method Nasal Cannula 06/12/25 11:42 O2 Flow Rate 5 06/12/25 11:42 06/11/25 06/12/25 06/12/25 22:59 06:59 14:59 Output Total 900 / 900 1250 / 1250 Balance -900 / -900 -1250 / -1250 Weight last 48 hrs Weight 68.039 kg Physical Exam 2 Narrative: GENERAL: The patient is alert and oriented times four. In respiratory distress HEENT: No significant pallor, icterus or lymphadenopathy.Oral cavity: There are no mucous membrane lesions. NECK: Trachea appears to be central. No masses noted. No JVD or thyromegaly appreciated. RESPIRATORY: Chest is symmetrical. She is having labored breathing. Audible wheezes appreciated without stethoscope use BREASTS: Deferred. HEART: The heart sounds are normal. No S3 or S4. No significant murmurs. No pericardial rub. 3-4+ pitting edema to the bilateral lower extremities LYMPHATIC: No lymphadenopathy noted in the neck. MUSCULOSKELETAL: No acute joint deformities or swelling SKIN: Bruising to the anterior aspect of the left ankle secondary to fall NEUROPSYCHIATRIC: The patient is alert and oriented x4. Moves all extremities spontaneously. Urinary Catheter Management: Vasquez: Cath Placed During This Visit: yes Reason for Continuing Indwelling Catheter: Accurate Measurement of Urinary Output in Critically Ill Patients Urinary Catheter Date of Insertion: 06/11/25 Urinary Catheter Time of Insertion: 20:17 Data 06/12/25 08:31 06/12/25 08:31 Micro: Microbiology 06/11/25 19:28 Urine Culture - Preliminary Urine,Clean Catch Gram Negative Rods A&P Assessment and plan 1. CHF (congestive heart failure): Volume overload in setting of CAD Suggested with dyspnea, unintentional weight gain of 11 pounds in just 2 weeks, and new pleural effusions Check complete echo Diuresis with 40mg IV lasix BID, 60 mg IV Lasix given in the ED Strict I&Os Daily weights GDMT prior to discharge as tolerated - Cardiology consulted, Dr. Ramos, recommendations appreciated Coninue ASA and plavix, statin 2. Acute exacerbation of chronic obstructive pulmonary disease (COPD): U/S of the thorax to assess if there is a drainable amount of pleural fluid O2 as needed Scheduled and PRN duonebs Check Mg level Procalcitonin level 0.14 3. Acute hypoxic respiratory failure: COPD as above Left>Right pleural effusions U/S of the thorax to assess if there is a drainable amount of pleural fluid O2 as needed Scheduled and PRN duonebs Check Mg level Procalcitonin level 0.14 4. Recurrent UTI: IV antibiotics, prednisone Urinary catheter in place I&O Avoid nephrotoxic agents 5. Chronic lymphocytic leukemia: Leukocytosis due to this 2& blast cells Monitor 6. Depression with anxiety: PRN ativan 7. Diabetes mellitus with hyperglycemia, with long-term current use of insulin: Continue home long-acting insulin SSI low 8. Hypothyroidism: Update TSH and continue synthroid 9. Myasthenia gravis: Patient has progressive weakness Uses a powered wheelchair and can still transfer at times Concerned that she is losing muscle tone in her neck and will not be able to lift her head up PT/OT before discharge?after some fluid pulled off with IV Lasix so she can tolerate assessment Fall risk precautions Recent falls PDMP PDMP Reviewed: Not Reviewed Attestations 2 Medical Necessity Statement*: Patient will require greater than two midnights inpatient for monitoring and treatment of new onset CHF. Diagnoses CHF (congestive heart failure) I50.9 Acute exacerbation of chronic obstructive pulmonary disease (COPD) J44.1 Acute hypoxic respiratory failure J96.01 Recurrent UTI N39.0 Chronic lymphocytic leukemia C91.10 Depression with anxiety F41.8 Diabetes mellitus with hyperglycemia, with long-term current use of insulin E11.65; Z79.4 Hypothyroidism E03.9 Myasthenia gravis G70.00
--- NOTE | 2025-06-12 17:23 | PM.CONSULT ---
Providers/Reason For Consult Consulting Physician/Specialty*: ILAY Ramos MD/cardiology Reason for Consult*: Patient with a new onset of congestive heart failure Requesting Physician: Coby Lr Attending Physician: ORLIN Tapia, SENIOR INSTRUCTOR Primary Care Provider: RHETT Sharma-C History of Present Illness History of Present Illness Felicitas Augustine is a 85 year old female Admitted to hospital with progressive shortness of breath. Her provisional diagnosis of congestive heart failure was made. Cardiology consult is requested for further cardiac evaluation recommendations. According to this patient, she was doing okay up until 3 weeks ago when she started having a cough and shortness of breath. She was using the inhalers for the shortness of breath. Apparently the symptoms where is getting worse. Her symptoms progress to a point where and she could not even hold a conversation. Because of worsening shortness of breath, she decided to come to the hospital. She did not have any chest pain or palpitations. She did not have any orthopnea or any leg swelling. She has been compliant with all her medications. She had a slightly elevated BNP and troponin T at the time of admission. No significant change since her hospital admission. According the patient, her shortness of breath is getting better. She did not have any fever or chills This patient has a history of atherosclerotic heart disease, PCI of the mid LAD a few months ago, high blood pressure, diabetes, dyslipidemia, hypothyroidism, COPD, permanent pacer implantation, chronic lymphatic leukemia. Review of Systems Narrative: CONSTITUTIONAL: No fever or chills. EYES: No blurring of vision or other visual disturbances lately. ENT: No hoarseness of voice, auditory disturbances or sore throat. CARDIOVASCULAR: As mentioned above. RESPIRATORY: Cough and shortness of breath as mentioned above GASTROINTESTINAL: No hematemesis or melena. GENITOURINARY: No dysuria or hematuria. INTEGUMENTARY: No skin rashes or history of skin cancer. NEURO: No transient ischemic attacks or amaurosis. PSYCHIATRIC: No history of psychosis or major depression. HEMATOLOGIC: History of chronic lymphatic leukemia ENDOCRINE: No history of polyuria or polydipsia. MUSCULOSKELETAL: No recent joint pain or swelling. ALLERGY/IMMUNOLOGY: As mentioned above. Medications/Allergies Home Medications ?Medication ?Instructions ?Recorded ?Confirmed ?Last Taken ?Type Power chair repair #1 ea 09/27/22 06/12/2523 Rx aspirin 81 mg tablet,delayed 81 mg PO QAM 08/09/23 06/12/25 06/11/25 History release cholecalciferol (vitamin D3) 125 5,000 unit PO QAM 09/05/23 06/12/25 06/11/25 History mcg (5,000 unit) tablet (Vitamin D3) cranberry concentrate-ascorbic 1 cap PO QAM 09/05/23 06/12/25 06/11/25 History acid 140 mg-100 mg capsule (Cranberry Plus Vitamin C) diazepam 2 mg tablet (Valium) 2 mg PO TID PRN muscle spasm #90 03/05/24 06/12/25 11/13/24 Rx tabs flash glucose scanning reader #1 ea 04/08/24 06/12/25 Unknown Rx (FreeStyle [place] 2 [place]) E0627 Power Chair with lift #1 ea 04/21/24 06/12/25 Unknown Rx Roho Wheelchair Coushion [id number] #1 ea 04/21/24 06/12/25 Unknown Rx albuterol sulfate 90 mcg/actuation 2 puff inhalation QID PRN 04/21/24 06/12/25 Unknown Rx aerosol inhaler Shortness Of Breath #6.7 grams insulin aspart U-100 100 unit/mL See Rx Instructions SUBCUT TID #15 04/21/24 06/12/25 11/14/24 18:00 Rx (3 mL) subcutaneous pen (Novolog mL FlexPen U-100 Insulin aspart) nitroglycerin 0.4 mg sublingual 0.4 mg sublingual Q5M PRN chest 09/23/24 06/12/25 Unknown Rx tablet pain 30 days #30 tabs isosorbide mononitrate 30 mg 30 mg PO DAILY #90 tabs 10/17/24 06/12/25 11/13/24 Rx tablet,extended release 24 hr clopidogrel 75 mg tablet (Plavix) 75 mg PO DAILY #90 tabs 11/16/24 06/12/25 06/11/25 Rx flash glucose sensor (FreeStyle #7 ea 12/11/24 06/12/25 Unknown Rx William 2 Sensor kit) insulin glargine U-300 conc 300 40 unit (0.1333 mL) SUBCUT DAILY 12/11/24 06/12/25 06/11/25 Rx unit/mL (3 mL) subcutaneous pen #12 mL (TouINTEGRATED BIOPHARMA Max U-300 SoloStar) lidocaine 5 % topical patch 1 patch topical [id number] #90 ea 12/11/24 06/12/25 Unknown Rx prednisone 10 mg tablet See Rx Instructions PO .COMPLEX 01/13/25 06/12/25 Unknown Rx PRN joint pain #30 tabs prednisone 5 mg tablet 5 mg PO DAILY #90 tabs 01/13/25 06/12/25 Unknown Rx budesonide 160 mcg-glycopyr 9 2 inh inhalation BID PRN Shortness 03/13/25 06/12/25 Unknown Rx mcg-formot 4.8 mcg/actuation HFA Of Breath #10.7 grams inhaler (IndigoVisionphere) cyclobenzaprine 10 mg tablet 10 mg PO .at bedtime #90 tabs 03/13/25 06/12/25 06/10/25 Rx furosemide 20 mg tablet 20 mg PO QAM #90 tabs 03/13/25 06/12/25 06/11/25 Rx levothyroxine 100 mcg tablet 100 mcg PO QAM #90 tabs 03/13/25 06/12/25 06/11/25 Rx simvastatin 20 mg tablet 20 mg PO BEDTIME #90 tabs 03/13/25 06/12/25 06/10/25 Rx polyethylene glycol 3350 17 4 g PO DAILY #119 grams 04/08/25 06/12/25 06/11/25 Rx gram/dose oral powder (Miralax) pregabalin 150 mg capsule 150 mg PO TID #270 caps 05/05/25 06/12/25 06/11/25 Rx cephalexin 500 mg capsule 500 mg PO TID #30 caps 06/11/25 06/12/25 Unknown Rx Allergies Allergy/AdvReac Type Severity Reaction Status Date / Time pneumococcal vaccine Allergy ALGY-Rash Verified 06/11/25 22:57 Sulfa (Sulfonamide Allergy RASH Verified 06/11/25 22:57 Antibiotics) Current Medications Generic Name Dose Route Start Last Admin Trade Name Freq PRN Reason Stop Dose Admin Albuterol/Ipratropium 3 ml 06/12/25 08:00 06/12/25 16:23 Ipratropium-Albuterol 3 Ml Neb INHALATION 3 ml QID.RESPIRATORY INEZ Administration Aspirin 81 mg 06/12/25 05:00 06/12/25 04:45 Aspirin 81 Mg Ec Tablet PO 81 mg QAM INEZ Administration Budesonide 0.5 mg 06/12/25 08:00 06/12/25 08:08 Budesonide 0.5 Mg/2 Ml Neb INHALATION 0.5 mg BID.RESPIRATORY INEZ Administration Clopidogrel Bisulfate 75 mg 06/12/25 05:00 06/12/25 04:46 Clopidogrel 75 Mg Tablet PO 75 mg DAILY INEZ Administration Cyclobenzaprine HCl 10 mg 06/11/25 23:14 06/12/25 00:58 Cyclobenzaprine 10 Mg Tablet PO 10 mg BEDTIME INEZ Administration Enoxaparin Sodium 40 mg 06/12/25 09:00 06/12/25 08:50 Enoxaparin 40 Mg/0.4 Ml Syringe SUBCUT 40 mg Q24H INEZ Administration Furosemide 40 mg 06/12/25 06:00 06/12/25 05:37 Furosemide 10 Mg/Ml Sdv 4ml IVP 40 mg Q12H INEZ Administration Insulin Human Lispro 0 unit 06/12/25 08:00 06/12/25 13:28 Insulin Lispro 100 Unit/1 Ml SUBCUT 10 unit WM&BEDTIME INEZ Administration Protocol Levothyroxine Sodium 100 mcg 06/12/25 05:00 06/12/25 04:46 Levothyroxine 100 Mcg Tablet PO 100 mcg QAM INEZ Administration Pantoprazole Sodium 40 mg 06/12/25 05:00 06/12/25 04:[address] 40 Mg Tablet PO 40 mg DAILY INEZ Administration Prednisone 40 mg 06/12/25 05:00 06/12/25 04:46 Prednisone 20 Mg Tablet PO 06/16/25 05:01 40 mg DAILY INEZ Administration Pregabalin 150 mg 06/12/25 05:00 06/12/25 13:29 Pregabalin 150 Mg Capsule PO 150 mg TID INEZ Administration Tolterodine Tartrate 2 mg 06/12/25 05:00 06/12/25 04:47 Tolterodine 2 Mg Tablet PO 2 mg QAM INEZ Administration PFSH Acute PFSH: Medical History High risk medication use Seropositive rheumatoid arthritis of multiple sites Generalized weakness Atherosclerosis of [place] coronary artery of [place] heart without angina pectoris (~10/29/24) Chronic lymphocytic leukemia Urolithiasis Left ureteral calculus Myasthenia gravis UTI (urinary tract infection) Type 2 diabetes mellitus with hyperglycemia, with long-term current use of insulin Environmental and seasonal allergies Essential hypertension, benign Pneumonia Mixed hyperlipidemia Vitamin D deficiency Vitamin B 12 deficiency COPD (chronic obstructive pulmonary disease) Depression with anxiety Hypothyroidism Neuropathy Surgical History History of basal cell carcinoma (BCC) excision History of hysterectomy with bilateral oophorectomy For cervical cancer History of appendectomy History of colonoscopy with polypectomy (11/17/21) Pacemaker 04/05/2019 H/O thyroidectomy Total thyroidectomy followed by radioactive iodine ablation for thyroid cancer H/O reduction of closed fracture left wrist 10/23/2015 Hx of cholecystectomy H/O brain surgery Craniotomy x 4 for meningioma H/O esophagogastroduodenoscopy (11/17/21) 2013 Family History Mother , AT 92 Anesthesia complication CAD (coronary artery disease) Cancer Dementia Stroke Brother CAD (coronary artery disease) Cancer Suicide Sister CAD (coronary artery disease) Suicide Grandmother Cancer Dementia Stroke Family/Other Cancer Dementia Stroke Brother Suicide Brother Suicide Father , IN HIS 60'S Alcoholic Liver disease Denies family history of Diabetes Clotting disorder Chronic kidney disease (CKD) Bleeding disorder Lung disease Social History Smoking and tobacco/nicotine status: former use of tobacco/nicotine Quit status (tobacco/nicotine): has quit using Year quit tobacco: 1997 Former quit date comment: 1 ppd X 45 years Second hand smoke exposure: No Alcohol intake: unknown Substance/Drug Use: unknown Adopted: No Caregiver/support person: Yes Lives independently: No Household members: family Housing: House Marital status: / Number of children: 2 service: No Current occupational status: retired Current occupational exposures/hazards: No Do you think of yourself as: Straight/Heterosexual Vitals/I&O/Wt Last Vital Signs Temp 97.7 F 06/12/25 12:00 Pulse 71 06/12/25 16:00 Resp 24 H 06/12/25 16:00 BP 130/70 06/12/25 16:00 Pulse Ox 94 06/12/25 16:00 O2 Del Method Nasal Cannula 06/12/25 16:00 O2 Flow Rate 4 06/12/25 16:00 06/12/25 06/12/25 06/12/25 06:59 14:59 22:59 Output Total 900 / 900 1250 / 1250 1250 / 2500 Balance -900 / -900 -1250 / -1250 -1250 / -2500 Weight last 48 hrs Weight 150 lb Physical Exam Narrative: GENERAL: The patient is alert and oriented times three. Not in any acute distress. HEENT: No significant pallor, icterus or lymphadenopathy.Oral cavity: There are no mucous membrane lesions. NECK: Trachea appears to be central. No masses noted. No JVD or thyromegaly appreciated. RESPIRATORY: Chest is symmetrical. No intercostals muscle retraction or any accessory muscle activation. Patient is extensive bilaterally coarse crackles and expiratory wheezing. Diminished breath sounds in the bases more so on the left side. BREASTS: Deferred. HEART: The heart sounds are normal. No S3 or S4. No significant murmurs. No pericardial rub ABDOMEN: No vessel pulsations or distention. No tenderness. No organomegaly appreciated. Bowel sounds are normally heard. : Deferred. RECTAL: Deferred. LYMPHATIC: No lymphadenopathy noted in the neck. EXTREMITIES: No significant edema or cyanosis MUSCULOSKELETAL: No acute joint deformities or swelling SKIN: There are no significant rashes or ecchymosis NEUROPSYCHIATRIC: The patient is alert and oriented x3. Appears to be in a good mood. No tremors or rigidity noted. Urinary Catheter Management: Vasquez: Cath Placed During This Visit: yes Reason for Continuing Indwelling Catheter: Accurate Measurement of Urinary Output in Critically Ill Patients Urinary Catheter Date of Insertion: 06/11/25 Urinary Catheter Time of Insertion: 20:17 Data 06/13/25 07:47 06/13/25 07:47 Other Labs: Laboratory Last Values WBC 75.56 10^3/uL (3.29-11.43) H* 06/12/25 08:31 RBC 4.04 10^6/uL (3.85-5.65) 06/12/25 08:31 Hgb 11.00 g/dL (11.27-16.99) L 06/12/25 08:31 Hct 35.3 % (36-47) L 06/12/25 08:31 MCV 87.4 fl (85-98) 06/12/25 08: MCH 27.2 pg (27-33) 06/12/25 08: MCHC 31.2 g/dL (30-55) 06/12/25 08: RDW 16.2 % (12.1-15.1) H 06/12/25 08:31 Plt Count 177 10^3/cmm (157-399) 06/12/25 08: MPV 9.0 fL (7.4-10.4) 06/12/25 08:31 Lymph % (Auto) Not Reportable 06/12/25 08: [place] % (Auto) Not Reportable 06/12/25 08: Lymph # (Auto) Not Reportable 06/12/25 08: [place] # (Auto) Not Reportable 06/12/25 08: Total Counted 100 (0-100) 06/12/25 08: Atypical Lymphs % 91.0 % (0-5) H 06/12/25 08: Absolute Neutrophils 5.3 10^3/cmm (1.4-6.5) 06/12/25 08: Segmented Neutrophils 7 % 06/12/25 08: Band Neutrophils 0.0 % 06/12/25 08: Absolute Lymphocytes 68.8 10^3/cmm (1.2-3.4) H 06/12/25 08:31 Lymphocytes (Manual) 0 % 06/12/25 08: Monocytes (Manual) 0.0 % 06/12/25 08: Absolute Monocytes 0.0 10^3/cmm (0.1-0.6) L 06/12/25 08:31 Eosinophils (Manual) 0 % 06/12/25 08: Absolute Eosinophils 0.0 10^3/cmm (0.0-0.7) 06/12/25 08: Basophils (Manual) 0.0 % 06/12/25 08: Absolute Basophils 0.0 10^3/cmm (0.0-0.2) 06/12/25 08: Nucleated RBCs 1.0 /100WBC (0-1) 06/12/25 08: Blast Cells 2 % (0-0) H* 12/04/25 08:31 Platelet Estimate Normal (Normal) 06/12/25 08:31 Sodium 137 mmol/L (136-145) 06/12/25 08:31 Potassium 3.8 mmol/L (3.5-5.1) 06/12/25 08:31 Chloride 96 mmol/L (98-107) L 06/12/25 08:31 Carbon Dioxide 27 mmol/L (22-29) 06/12/25 08:31 Anion Gap 17.8 (5-19) 06/12/25 08:31 BUN 19 mg/dL (8-23) 06/12/25 08:31 Creatinine 0.7 mg/dL (0.5-0.9) 06/12/25 08:31 GFR Calculation Not Reportable 06/12/25 08:31 Glucose 258 mg/dL (65-115) H 06/12/25 08:31 POC Glucose 200 mg/dL (70-110) H 06/12/25 16:59 Calculated Osmolality 295 mOsm/kg (285-295) 06/12/25 08:31 Calcium 8.7 mg/dL (8.5-10.5) 06/12/25 08:31 Magnesium 2.5 mg/dL (1.7-2.3) H 06/11/25 21:00 Total Bilirubin 0.6 mg/dL (0.15-1.2) 06/11/25 18:52 AST 20 U/L (0-32) 06/11/25 18:52 ALT 10 U/L (0-33) 06/11/25 18:52 Alkaline Phosphatase 97 U/L (35-105) 06/11/25 18:52 Troponin T Baseline 16 ng/L (0-10) H 06/11/25 18:52 Troponin T 120 Minute 17.82 ng/L (0-10) H 06/11/25 21:00 Delta Troponin T 1.82 ABS# (0-10) 06/11/25 21:00 Troponin T Hi Sens 6Hr 15.16 ng/L (0-10) H 06/12/25 01:18 Troponin T Hi Sens 6Hr Delta -0.84 ng/L (0-12) L 06/12/25 01:18 NT-Pro-B Natriuret Pep 307 pg/mL (0-450) 06/11/25 18:52 Total Protein 6.9 g/dL (6.6-8.7) 06/11/25 18:52 Albumin 3.9 g/dL (3.5-5.2) 06/11/25 18:52 Globulin 3.0 g/dL (1.3-4.6) 06/11/25 18:52 Procalcitonin 0.14 ng/mL (0-0.5) 06/11/25 18:52 TSH 3.68 uIU/mL (0.27-4.20) 06/12/25 08:31 Urine Color Yellow (Yellow) 06/11/25 19: Urine Appearance Clear (CLEAR) 06/11/25 19: Urine pH 6.0 (5-7) 06/11/25 19: Ur Specific [place] 1.010 (1.005-1.030) 06/11/25 19:28 Urine Protein Trace (Negative) A 06/11/25 19: Urine Glucose (UA) Negative (Normal) 06/11/25 19: Urine Ketones Trace (Negative) 06/11/25 19: Urine Blood Trace (Negative) A 06/11/25 19: Urine Nitrate Positive (Negative) A 06/11/25: Urine Bilirubin Negative (Negative) 06/11/25 19: Urine Urobilinogen 1.0 mg/dL (Negative) 06/11/25 19:28 Ur Leukocyte Esterase Trace (Negative) A 06/11/25 19: Urine RBC 0-2 /hpf (0-2) 06/11/25 19: Urine WBC 21-50 /hpf (0-5) H 06/11/25 19:28 Ur Squamous Epith Cells 0-5 /hpf (0-5) 06/11/25 19: Amorphous Sediment Not Reportable 06/11/25 19: Urine Bacteria 4+ /hpf (NONE) H 06/11/25 19: Hyaline Casts 0-4 /lpf H 06/11/25 19:28 Influenza A (PCR) Negative (Negative) 06/11/25 19:16 Influenza Type B (PCR) Negative (Negative) 06/11/25 19:16 RSV (PCR) Negative (Negative) 06/11/25 19:16 SARS-CoV-2 (PCR) Negative (Negative) 06/11/25 19:16 Micro: Microbiology 06/11/25 19:28 Urine Culture - Preliminary Urine,Clean Catch Gram Negative Rods A&P Assessment and plan 1. SOB (shortness of breath): Patient is shortness of breath is mostly from the reactive airway disease/COPD exacerbation. Her BNP is in the normal range. Chances of this being related to the heart failure is very low. She may have respiratory infection causing the pleural effusion as well. 2. Atherosclerosis of [place] coronary artery of [place] heart without angina pectoris: Patient had a PCI of the mid LAD in November of this year. Currently she has no chest pain. No ischemic EKG changes. No evidence of any acute myocardial injury. 3. Presence of permanent cardiac pacemaker: The patient function appears to be appropriate. 4. Mixed hyperlipidemia: May continue on the current management 5. Type 2 diabetes mellitus with hyperglycemia, with long-term current use of insulin: Aggressive management of the diabetes would be appropriate. 6. Chronic lymphocytic leukemia B-cell type not having achieved remission: Chronic and stable 7. Pleural effusion: Infective etiology need to be looked into. Plan: Patient may benefit from a chest CT to further evaluate her shortness of breath. Based on the clinical progress and the results of the above, further recommendations will be made. Thank you for the opportunity to evaluate this patient and make these recommendations PDMP PDMP Reviewed: Not Reviewed Consult Attestations Medical Necessity Statement: Patient requires continued hospital stay for close monitoring and further management Coding Level of Care Code 74628 Diagnoses SOB (shortness of breath) R06.02 Atherosclerosis of [place] coronary artery of [place] heart without angina pectoris I25.10 [place] vs. transplanted heart: [place] heart Presence of permanent cardiac pacemaker Z95.0 Mixed hyperlipidemia E78.2 Hyperlipidemia type: mixed hyperlipidemia Type 2 diabetes mellitus with hyperglycemia, with long-term current use of insulin E11.65; Z79.4 Diabetes mellitus type: type 2 Chronic lymphocytic leukemia B-cell type not having achieved remission C91.10 Pleural effusion J90
[2025-06-12] MEDS: lactobacillus 1 Tablet 1 TAB PO (17:44)
[2025-06-12] MEDS: ATORVASTATIN 20 MG TABLET PO (20:31)
[2025-06-12] MEDS: polyethylene glycol 3350 Pkt 17 gm PO (21:08)
--- NOTE | 2025-06-12 23:14 | USR_ITS ---
PROCEDURE INFORMATION: Exam: US Chest, Pleural Spaces Exam date and time: 06/12/2025 12:13 AM Age: 85 years old Clinical indication: Dyspnea; Additional info: Left pleural effusion, drainable fluid? TECHNIQUE: Imaging protocol: Real time ultrasound of the chest was performed with image documentation. Exam focused on the pleural spaces. COMPARISON: CT chest w con* [id number] 04/28/2023 10:20 AM FINDINGS: Lungs: Partial atelectatic collapse of the partially imaged lung is noted. Pleural spaces: A small/medium left-sided pleural effusion is present. US/US chest [id number] IMPRESSION: A small/medium left-sided pleural effusion is present.
[2025-06-13] VITALS (9 sets, daily range): BP systolic 121–136; BP diastolic 54–75; PULSE 62–81; RESP 16–26; TEMP 36.2–36.8; O2SAT 85–96; BMI 27.3
[2025-06-13] MEDS: FUROsemide 10 mg/mL SDV 4mL 40 MG IVP ×2 (05:43→17:33)
[2025-06-13] MEDS: polyethylene glycol 3350 Pkt 17 gm PO (05:43)
[2025-06-13] MEDS: lactobacillus 1 Tablet 1 TAB PO ×2 (05:44→17:33)
[2025-06-13] MEDS: insulin glargine 100 units/1 mL 34 UNIT SUBCUT (05:45)
--- NOTE | 2025-06-13 07:44 | P.DS_ITS ---
Discharge Providers Date of Admission: 06/11/25 20:39 Date of Discharge: June 13, 2025 Attending Provider at Admission: Avtar Grant MD Attending Provider at Discharge: Maddi Fuentes NP Primary Care Provider: MARLO Sharma Diagnoses at Discharge Discharge Diagnosis 1. SOB (shortness of breath): 2. Atherosclerosis of [place] coronary artery of [place] heart without angina pectoris: 3. Presence of permanent cardiac pacemaker: 4. Mixed hyperlipidemia: 5. Type 2 diabetes mellitus with hyperglycemia, with long-term current use of insulin: 6. Chronic lymphocytic leukemia B-cell type not having achieved remission: 7. Pleural effusion: Reason for Visit Reason for Visit: SOB\Swollen Legs Brief History: Admission: Felicitas Augutsine is a 85 year old female with history significant for COPD, CLL, CAD, and diabetes, who presents with complaints of shortness of breath. Son is present and supplements the history. I am told the patient had a clinic appointment today for swelling which she completed. While there, labs were drawn and the patient was sent home. Of note, the patient does have a baseline degree of shortness of breath. However, while at home her shortness of breath became severe enough to the point the patient asked her son to be delivered to the ED. Son mentions there was concern for congenital heart failure during her medical vision. There has been report of 11lbs of unintentional weight gain over the past month. While home, son did try to provide his own supply of O2 to the patient without relief. Patient endorses chest pain today as well but not during my visit. No fevers, dysuria, nausea, or vomiting. There is a productive cough of note. Physical Exam Urinary Catheter Management: Vernon: Cath Placed During This Visit: yes Reason for Continuing Indwelling Catheter: Accurate Measurement of Urinary Output in Critically Ill Patients Urinary Catheter Date of Insertion: 06/11/25 Urinary Catheter Time of Insertion: 20:17 Discharge Data Studies Completed and Pending Completed Studies During Hospitalization Category Date Time Status XR chest 1V portable [id number] Stat Exams 06/11/25 18:27 Completed CV. echo complete* [id number] Routine Ultrasound 06/11/25 23:14 Completed US chest [id number] Routine Ultrasound 06/12/25 23:14 Completed Pending at discharge Category Date Time Status CBC Auto Diff [Complete Blood Count w/Auto] AM LABS Lab 06/13/25 07:40 Ordered CBC Auto Diff [Complete Blood Count w/Auto] AM LABS Lab 06/14/25 07:40 Ordered Comprehensive Metabolic Panel AM LABS Lab 06/13/25 07:40 Ordered Comprehensive Metabolic Panel AM LABS Lab 06/14/25 07:40 Ordered Sputum Culture Routine Lab 06/11/25 23:14 Uncollected Urine Culture Stat Lab 06/11/25 19:28 Results Radiology Impressions Chest X-Ray 06/11/25 18:27 IMPRESSION: [id number] left and small right pleural effusions. Chest Ultrasound 06/12/25 23:14 IMPRESSION: A small/medium left-sided pleural effusion is present. Laboratory Results WBC 75.56 10^3/uL (3.29-11.43) H* 06/12/25 08:31 RBC 4.04 10^6/uL (3.85-5.65) 06/12/25 08:31 Hgb 11.00 g/dL (11.27-16.99) L 06/12/25 08:31 Hct 35.3 % (36-47) L 06/12/25 08:31 MCV 87.4 fl (85-98) 06/12/25 08:31 MCH 27.2 pg (27-33) 06/12/25 08:31 MCHC 31.2 g/dL (30-55) 06/12/25 08:31 RDW 16.2 % (12.1-15.1) H 06/12/25 08:31 Plt Count 177 10^3/cmm (157-399) 06/12/25 08:31 MPV 9.0 fL (7.4-10.4) 06/12/25 08:31 Lymph % (Auto) Not Reportable 06/12/25 08:31 [place] % (Auto) Not Reportable 06/12/25 08:31 Lymph # (Auto) Not Reportable 06/12/25 08:31 [place] # (Auto) Not Reportable 06/12/25 08:31 Total Counted 100 (0-100) 06/12/25 08:31 Atypical Lymphs % 91.0 % (0-5) H 06/12/25 08:31 Absolute Neutrophils 5.3 10^3/cmm (1.4-6.5) 06/12/25 08:31 Segmented Neutrophils 7 % 06/12/25 08:31 Band Neutrophils 0.0 % 06/12/25 08:31 Absolute Lymphocytes 68.8 10^3/cmm (1.2-3.4) H 06/12/25 08:31 Lymphocytes (Manual) 0 % 06/12/25 08:31 Monocytes (Manual) 0.0 % 06/12/25 08: Absolute Monocytes 0.0 10^3/cmm (0.1-0.6) L 06/12/25 08:31 Eosinophils (Manual) 0 % 06/12/25 08:31 Absolute Eosinophils 0.0 10^3/cmm (0.0-0.7) 06/12/25 08:31 Basophils (Manual) 0.0 % 06/12/25 08: Absolute Basophils 0.0 10^3/cmm (0.0-0.2) 06/12/25 08:31 Nucleated RBCs 1.0 /100WBC (0-1) 06/12/25 08:31 Blast Cells 2 % (0-0) H* 06/12/25 08:31 Platelet Estimate Normal (Normal) 06/12/25 08:31 Sodium 137 mmol/L (136-145) 06/12/25 08:31 Potassium 3.8 mmol/L (3.5-5.1) 06/12/25 08:31 Chloride 96 mmol/L (98-107) L 06/12/25 08:31 Carbon Dioxide 27 mmol/L (22-29) 06/12/25 08:31 Anion Gap 17.8 (5-19) 06/12/25 08:31 BUN 19 mg/dL (8-23) 06/12/25 08:31 Creatinine 0.7 mg/dL (0.5-0.9) 06/12/25 08:31 GFR Calculation Not Reportable 06/12/25 08: Glucose 258 mg/dL (65-115) H 06/12/25 08:31 POC Glucose 128 mg/dL (70-110) H 06/13/25 06:29 Calculated Osmolality 295 mOsm/kg (285-295) 06/12/25 08:31 Calcium 8.7 mg/dL (8.5-10.5) 06/12/25 08:31 Magnesium 2.5 mg/dL (1.7-2.3) H 06/11/25 21:00 Total Bilirubin 0.6 mg/dL (0.15-1.2) 06/11/25 18:52 AST 20 U/L (0-32) 06/11/25 18:52 ALT 10 U/L (0-33) 06/11/25 18:52 Alkaline Phosphatase 97 U/L (35-105) 06/11/25 18:52 Troponin T Baseline 16 ng/L (0-10) H 06/11/25 18:52 Troponin T 120 Minute 17.82 ng/L (0-10) H 06/11/25 21:00 Delta Troponin T 1.82 ABS# (0-10) 06/11/25 21:00 Troponin T Hi Sens 6Hr 15.16 ng/L (0-10) H 06/12/25 01:18 Troponin T Hi Sens 6Hr Delta -0.84 ng/L (0-12) L 06/12/25 01:18 NT-Pro-B Natriuret Pep 307 pg/mL (0-450) 06/11/25 18:52 Total Protein 6.9 g/dL (6.6-8.7) 06/11/25 18:52 Albumin 3.9 g/dL (3.5-5.2) 06/11/25 18:52 Globulin 3.0 g/dL (1.3-4.6) 06/11/25 18:52 Procalcitonin 0.14 ng/mL (0-0.5) 06/11/25 18:52 TSH 3.68 uIU/mL (0.27-4.20) 06/12/25 08:31 Urine Color Yellow (Yellow) 06/11/25 19: Urine Appearance Clear (CLEAR) 06/11/25 19: Urine pH 6.0 (5-7) 06/11/25 19: Ur Specific [place] 1.010 (1.005-1.030) 06/11/25 19: Urine Protein Trace (Negative) A 06/11/25 19: Urine Glucose (UA) Negative (Normal) 06/11/25 19: Urine Ketones Trace (Negative) 06/11/25 19: Urine Blood Trace (Negative) A 06/11/25: Urine Nitrate Positive (Negative) A 12/03/25 19:28 Urine Bilirubin Negative (Negative) 06/11/25 19:28 Urine Urobilinogen 1.0 mg/dL (Negative) 06/11/25 19:28 Ur Leukocyte Esterase Trace (Negative) A 06/11/25 19:28 Urine RBC 0-2 /hpf (0-2) 06/11/25 19:28 Urine WBC 21-50 /hpf (0-5) H 06/11/25 19:28 Ur Squamous Epith Cells 0-5 /hpf (0-5) 06/11/25 19:28 Amorphous Sediment Not Reportable 06/11/25 19:28 Urine Bacteria 4+ /hpf (NONE) H 06/11/25 19:28 Hyaline Casts 0-4 /lpf H 06/11/25 19:28 Influenza A (PCR) Negative (Negative) 06/11/25 19:16 Influenza Type B (PCR) Negative (Negative) 06/11/25 19:16 RSV (PCR) Negative (Negative) 06/11/25 19:16 SARS-CoV-2 (PCR) Negative (Negative) 06/11/25 19:16 Vitals Last Vital Signs Temp 97.2 F L 06/13/25 04:00 Pulse 70 06/13/25 07:40 Resp 18 06/13/25 07:40 BP 127/54 06/13/25 04:00 Pulse Ox 96 06/13/25 07:40 O2 Del Method Nasal Cannula 06/13/25 07:40 O2 Flow Rate 4 06/13/25 07:40 Discharge Plan Discharge Patient Disposition: Home Health Service Condition: Stable Prescriptions: [id number] See Rx Instructions .Route .MEDSUPPLY Qty: 1 0RF Rx Instructions: use in wheelchair or powerchair (DME) [id number] Power Chair with lift See Rx Instructions .Route .MEDSUPPLY Qty: 1 0RF Rx Instructions: use daily for mobility 99 months albuterol sulfate 90 mcg/actuation HFA aerosol inhaler 2 puff INHALATION QID PRN (Reason: Shortness Of Breath) Qty: 6.7 1RF insulin aspart U-100 [Novolog FlexPen U-100 Insulin] 100 unit/mL (3 mL) insulin pen See Rx Instructions SUBCUT TID Qty: 15 2RF Rx Instructions: Inject per sliding scale twice daily as needed for high blood sugars. nitroglycerin 0.4 mg tablet, sublingual 0.4 mg sublingual Q5M PRN (Reason: chest pain) 30 Days Qty: 30 3RF Rx Instructions: until response; do not exceed 3 doses per episode cephalexin 500 mg capsule 500 mg PO TID Qty: 30 0RF levothyroxine 100 mcg tablet 100 mcg PO QAM Qty: 90 1RF Breztri Aerosphere 160-9-4.8 mcg/actuation HFA aerosol inhaler 2 inh inhalation BID PRN (Reason: Shortness Of Breath) Qty: 10.7 1RF cyclobenzaprine 10 mg tablet 10 mg PO .at bedtime Qty: 90 1RF furosemide 20 mg tablet 20 mg PO QAM Qty: 90 1RF simvastatin 20 mg tablet 20 mg PO BEDTIME Qty: 90 1RF diazepam [Valium] 2 mg tablet 2 mg PO TID PRN (Reason: muscle spasm) Qty: 90 5RF prednisone 10 mg tablet See Rx Instructions PO .COMPLEX PRN (Reason: joint pain) Qty: 30 1RF Rx Instructions: Take 1 or 2 tablets by mouth daily up to 7 days as needed for joint pain flare. prednisone 5 mg tablet 5 mg PO DAILY Qty: 90 1RF insulin glargine U-300 conc [Toujeo Max U-300 SoloStar] 300 unit/mL (3 mL) insulin pen 40 unit SUBCUT DAILY Qty: 12 2RF lidocaine 5 % adhesive patch,medicated 1 patch topical [id number] Qty: 90 1RF (DME) FreeStyle [place] 2 Sensor Kit See Rx Instructions .ROUTE .MEDSUPPLY Qty: 7 11RF Rx Instructions: change every 14 days pregabalin 150 mg capsule 150 mg PO TID Qty: 270 1RF (DME) Power chair repair See Rx Instructions .Route .MEDSUPPLY Qty: 1 0RF Rx Instructions: Repair power chair and maintenance (DME) FreeStyle William 2 [place] Misc See Rx Instructions .ROUTE .MEDSUPPLY Qty: 1 0RF Rx Instructions: As directed isosorbide mononitrate 30 mg tablet extended release 24 hr 30 mg PO DAILY Qty: 90 3RF aspirin 81 mg tablet,delayed release (DR/EC) 81 mg PO QAM Cranberry Plus Vitamin C 140-100 mg Capsule 1 cap PO QAM cholecalciferol (vitamin D3) [Vitamin D3] 125 mcg (5,000 unit) Tablet 5,000 unit PO QAM clopidogrel [Plavix] 75 mg tablet 75 mg PO DAILY Qty: 90 3RF polyethylene glycol 3350 [Miralax] 17 gram/dose powder 4 g PO DAILY Qty: 119 0RF Other Ambulatory Orders: DME: Commode (Order) Location: None Selected Ordered By: Maddi Fuentes DME: Oxygen (Order) Location: None Selected Ordered By: Maddi Fuentes [facility]] Adam Anguiano FNP-C [Primary Care Provider, Family Practice] - 06/26/25 10:40 am Paulina Beverly APRN [Referring, Urology] - 06/16/25 9:30 am Referral Note: Urinary retention, vernon in place Please be at the office 20 mins early to fill out new patient paper work Paulina Deal FNP [Nurse Practitioner, Cardiology] - 07/07/25 8:30 am Discharge Diet: Cardiac Discharge Activity: Resume usual activity Patient Instructions: COPD, Heart Failure (DC), Shortness of Breath (DC), Acute Respiratory Failure (GEN), Opioid Safety, Patient Portal & Rory Instructions Coding Level of Care Code Acute Code for Chg Fwd Diagnoses SOB (shortness of breath) R06.02 Atherosclerosis of [place] coronary artery of [place] heart without angina pectoris I25.10 [place] vs. transplanted heart: [place] heart Presence of permanent cardiac pacemaker Z95.0 Mixed hyperlipidemia E78.2 Hyperlipidemia type: mixed hyperlipidemia Type 2 diabetes mellitus with hyperglycemia, with long-term current use of insulin E11.65; Z79.4 Diabetes mellitus type: type 2 Chronic lymphocytic leukemia B-cell type not having achieved remission C91.10 Pleural effusion J90
[2025-06-13 07:55] LABS: Hematocrit 33.2 % (36-47); Hemoglobin 10.50 g/dL (11.27-16.99); Mean Corpuscular HGB Conc 31.6 g/dL (30-55); Mean Corpuscular Hemoglobin 27.9 pg (27-33); Mean Corpuscular Volume 88.3 fl (85-98); Nucleated Red Blood Cells % 0 %; Platelet Count 203 10^3/cmm (157-399); Red Blood Count 3.76 10^6/uL (3.85-5.65)
[2025-06-13 08:12] LABS: Alanine Aminotransferase 8 U/L (0-33); Albumin Level 3.7 g/dL (3.5-5.2); Alkaline Phosphatase 93 U/L (35-105); Anion Gap 14.7 (5-19); Aspartate Amino Transferase 14 U/L (0-32); Blood Urea Nitrogen 27 mg/dL (8-23); Calcium 8.7 mg/dL (8.5-10.5); Carbon Dioxide 30 mmol/L (22-29); Chloride 101 mmol/L (98-107); Globulin 2.8 g/dL (1.3-4.6); Glucose 192 mg/dL (65-115); Osmolality Calculated 304 mOsm/kg (285-295); Potassium 3.7 mmol/L (3.5-5.1); Sodium 142 mmol/L (136-145); Total Protein 6.5 g/dL (6.6-8.7)
[2025-06-13 08:25] LABS: Slide Review Slide Review Perform
[2025-06-13 08:26] LABS: Absolute Segmented Neutrophil 7.6 10/cmm (1.6-7.1); Atypical Lymphs 90.0 % (0-5); Band Neutrophils Absolute 0.0 10^3/cmm (0.0-1.2); Total Cells Counted 100 (0-100)
[2025-06-13 08:29] LABS: White Blood Count 94.74 10^3/uL (3.29-11.43)
[2025-06-13 09:26] LABS: NT Pro B Type Natriuretic Pept 222 pg/mL (0-450)
[2025-06-13] MEDS: cefTRIAXone 1,000 mg SDV 1000 MG IVP (10:18)
--- NOTE | 2025-06-13 10:25 | CTR_ITS ---
PROCEDURE INFORMATION: Exam: CTA Chest With Contrast Exam date and time: 06/13/2025 1:52 PM Age: 85 years old Clinical indication: Dyspnea; SOB TECHNIQUE: Imaging protocol: Computed tomographic angiography of the chest with contrast. Exam focused on the arteries. 3D rendering (Not supervised by radiologist): MIP and/or 3D reconstructed images were created by the technologist. Radiation optimization: All CT scans at this facility use at least one of these dose optimization techniques: automated exposure control; mA and/or kV adjustment per patient size (includes targeted exams where dose is matched to clinical indication); or iterative reconstruction. Contrast material: OMNI 350; Contrast volume: 100 ml; Contrast route: INTRAVENOUS (IV); COMPARISON: CT angio chest w abd pel w con 08/15/2022 3:56 PM RADIATION DOSE METRICS: Total DLP (mGy-cm): 371.87 FINDINGS: Pulmonary arteries: No central or segmental pulmonary emboli. Evaluation of the more distal branches is limited by motion artifact. Great vessels off aortic arch: Aberrant right subclavian artery. Aorta: Atherosclerotic changes of the aorta. Lungs: Herniated left lung and pleural fluid at the site of known left posterolateral chest wall defect. Left lower lobe consolidation. Pleural spaces: See Lungs finding. Heart: Unremarkable. No cardiomegaly. No pericardial effusion. Lymph nodes: Mediastinal, hilar, and axillary adenopathy. Liver: Fatty liver. Kidneys: Simple cyst in the right kidney, no follow-up necessary. Bones/joints: Unremarkable. No acute fracture. Soft tissues: Perivertebral soft tissue thickening or mass at the left T10-T12 space, correlate with history of malignancy. CT/CT angio chest PE protcl [id number] IMPRESSION: 1. No central or segmental pulmonary emboli. Evaluation of the more distal branches is limited by motion artifact. 2. Mediastinal, hilar, and axillary adenopathy. 3. Perivertebral soft tissue thickening or mass at the left T10-T12 space, correlate with history of malignancy. 4. Left lower lobe consolidation. Left lower lobe pleural effusion. Pneumonia is not excluded. COMMENTS: Consistent with the [employer]'s Incidental Findings Committee white paper (J Am Joel Radiol 2018): Any incidental renal lesion less than 1 cm or classified as too small to characterize, or any incidental cystic renal lesion characterized as simple-appearing, is likely benign. No follow-up imaging is recommended for these lesions per consensus recommendations based on imaging criteria.
--- NOTE | 2025-06-13 12:14 | P.PN_ITS ---
Subjective 2 Subjective: Patient is a very pleasant 85-year-old female seen and examined at bedside on hospital rounds today. Patient sitting up in bed with mild shortness of breath, states that it is no worse than before but she feels like when she is at home walking around that she gets winded and wanted to be evaluated for home oxygen. Patient previously did not have home oxygen, currently 2 to 4 L/min to maintain saturation greater than 90%. Greatly appreciate cardiology consultation and management with Dr. Ramos, he states the patient will need a CT scan prior to discharge. Patient does have known CLL, elevated WBC 94.74. This is managed outpatient. Vital signs remained stable. Patient is afebrile. Will work with case management discharge planning. Vitals/I&O/Wt Last Vital Signs Temp 98.0 F 06/13/25 07:50 Pulse 69 06/13/25 07:50 Resp 24 H 06/13/25 07:50 BP 121/55 06/13/25 07:50 Pulse Ox 85 L 06/13/25 11:16 O2 Del Method Nasal Cannula 06/13/25 07:40 O2 Flow Rate 4 06/13/25 11:16 06/12/25 06/13/25 06/13/25 22:59 06:59 14:59 Intake Total 360 / 360 Output Total 2150 / 3400 750 / 4150 Balance -2150 / -3400 -750 / -4150 360 / 360 Weight last 48 hrs Weight 69.9 kg Weight 68.039 kg Physical Exam 2 Narrative: GENERAL: The patient is alert and oriented times four. In respiratory distress HEENT: No significant pallor, icterus or lymphadenopathy.Oral cavity: There are no mucous membrane lesions. NECK: Trachea appears to be central. No masses noted. No JVD or thyromegaly appreciated. RESPIRATORY: Chest is symmetrical. Coarse bilaterally to auscultation, diminished at the bases. BREASTS: Deferred. HEART: The heart sounds are normal. No S3 or S4. No significant murmurs. No pericardial rub. 1+ pitting edema to the bilateral lower extremities LYMPHATIC: No lymphadenopathy noted in the neck. MUSCULOSKELETAL: No acute joint deformities or swelling SKIN: Bruising to the anterior aspect of the left ankle secondary to fall NEUROPSYCHIATRIC: The patient is alert and oriented x4. Moves all extremities spontaneously. Urinary Catheter Management: Vasquez: Cath Placed During This Visit: yes Reason for Continuing Indwelling Catheter: Accurate Measurement of Urinary Output in Critically Ill Patients Urinary Catheter Date of Insertion: 06/11/25 Urinary Catheter Time of Insertion: 20:17 Data 06/13/25 07:47 06/13/25 07:47 Micro: Microbiology 06/11/25 19:28 Urine Culture - Final Urine,Clean Catch Escherichia coli A&P Assessment and plan 1. CHF (congestive heart failure): - Volume overload in setting of CAD - ECHO with EF 71%, no pericardial effusion, no significant change from prior study 03/20/2019 - Diuresis with 40mg IV lasix BID, 60 mg IV Lasix given in the ED - Strict I&Os - Daily weights - GDMT prior to discharge as tolerated - Cardiology consulted, Dr. Ramos, recommendations appreciated - Coninue ASA and plavix, statin - CTA Chest pending 2. Acute exacerbation of chronic obstructive pulmonary disease (COPD): - U/S of the thorax to assess if there is a drainable amount of pleural fluid - Home oxygen evaluation completed, requires 4 L/min with exertion via nasal cannula. - Scheduled and PRN duonebs - Procalcitonin level 0.14 3. Acute hypoxic respiratory failure: - COPD as above - Left>Right pleural effusions - Continue supportive measures 4. Recurrent UTI: - POA - IV antibiotics with Rocephin - Urinary catheter in place, referral to urology at discharge - I&O - Avoid nephrotoxic agents 5. Chronic lymphocytic leukemia: - Leukocytosis due to this - Managed outpatient, f/u with PCP 6. Depression with anxiety: - PRN ativan 7. Diabetes mellitus with hyperglycemia, with long-term current use of insulin: - Continue home long-acting insulin - SSI low 8. Hypothyroidism: - Update TSH and continue synthroid 9. Myasthenia gravis: - Patient has progressive weakness - Uses a powered wheelchair and can still transfer at times - PT/OT recommendations home with home health, patient is at baseline mobility Plan: 06/13: Working with case management on discharge planning, however due to increased oxygen requirement patient will need to continue diuresis and. Pending CTA chest PE protocol. Greatly appreciate cardiology consultation management with Dr. Ramos, continue to diurese with IV Lasix. PT/OT evaluation and recommendations for patient to discharge home with home health, she is at her baseline mobility. PDMP PDMP Reviewed: Not Reviewed Attestations 2 Medical Necessity Statement*: Requires continued inpatient hospitalization crossing 2 midnights due to CHF with continued diuresing and management of complex comorbidities. Coding Level of Care Code 91571 Diagnoses CHF (congestive heart failure) I50.9 Acute exacerbation of chronic obstructive pulmonary disease (COPD) J44.1 Acute hypoxic respiratory failure J96.01 Recurrent UTI N39.0 Chronic lymphocytic leukemia C91.10 Depression with anxiety F41.8 Diabetes mellitus with hyperglycemia, with long-term current use of insulin E11.65; Z79.4 Hypothyroidism E03.9 Myasthenia gravis G70.00
--- NOTE | 2025-06-13 12:30 | PC.SOCIAL ---
IMM Update pg 2 of IMM updated and reviewed w/ patient. Copy provided and copy dated, initialed and placed in chart.
--- NOTE | 2025-06-13 12:54 | PC.RESP ---
Pt reports prior hospital admission for Valley Fever
--- NOTE | 2025-06-13 13:54 | P.PN_ITS ---
Subjective 2 Subjective: Patient is slowly improving. Still has significant shortness of breath with activities and cough. Extensive bilateral wheezing in the lungs. Vital signs are stable. No chest pain. No fever or chills Medications: Medication Review Details: Current Medications Acetaminophen (Acetaminophen 325 Mg Tablet) 650 mg PO Q6H PRN PRN Reason: Mild/Mod Pain Or Temp >/= 101 Albuterol/Ipratropium (Ipratropium-Albuterol 3 Ml Neb) 3 ml INHALATION QID.RESPIRATORY INEZ Last Admin: 06/13/25 12:50 Dose: 3 ml Albuterol/Ipratropium (Ipratropium-Albuterol 3 Ml Neb) 3 ml INHALATION Q4H PRN PRN Reason: SHORTNESS OF BREATH Aspirin (Aspirin 81 Mg Ec Tablet) 81 mg PO QAM INEZ Last Admin: 06/13/25 05:44 Dose: 81 mg Atorvastatin Calcium (Atorvastatin 20 Mg Tablet) 20 mg PO BEDTIME INEZ Last Admin: 06/12/25 20:31 Dose: 20 mg Budesonide (Budesonide 0.5 Mg/2 Ml Neb) 0.5 mg INHALATION BID.RESPIRATORY INEZ Last Admin: 06/13/25 07:38 Dose: 0.5 mg Ceftriaxone Sodium (Ceftriaxone 1,000 Mg Sdv) 1,000 mg IVP DAILY INEZ; Protocol Last Admin: 06/13/25 10:18 Dose: 1,000 mg Clopidogrel Bisulfate (Clopidogrel 75 Mg Tablet) 75 mg PO DAILY INEZ Last Admin: 06/13/25 05:43 Dose: 75 mg Cyclobenzaprine HCl (Cyclobenzaprine 10 Mg Tablet) 10 mg PO BEDTIME INEZ Last Admin: 06/12/25 20:32 Dose: 10 mg Enoxaparin Sodium (Enoxaparin 40 Mg/0.4 Ml Syringe) 40 mg SUBCUT Q24H INEZ Last Admin: 06/13/25 10:18 Dose: 40 mg Furosemide (Furosemide 10 Mg/Ml Sdv 4ml) 40 mg IVP Q12H INEZ Last Admin: 06/13/25 05:43 Dose: 40 mg Glucagon (Glucagon 1 Mg/Ml Kit 1 Ml) 1 mg IM ONCE PRN; Protocol PRN Reason: Adult Acute Hypoglycemia Nursing Prot. Dextrose (D5w) 500 mls @ 0 mls/hr IV ONCE PRN; Protocol PRN Reason: Adult Acute Hypoglycemia Prot Dextrose (D10w) 125 mls @ 750 mls/hr IV PRN PRN; Protocol PRN Reason: Adult Acute Hypoglycemia Nursing Protocol Dextrose (D10w) 250 mls @ 1,000 mls/hr IV PRN PRN; Protocol PRN Reason: Adult Acute Hypoglycemia Nursing Protocol Insulin Glargine (Insulin Glargine 100 Units/1 Ml) 34 unit SUBCUT DAILY [facility] Last Admin: 06/13/25 05:45 Dose: 34 unit Insulin Human Lispro (Insulin Lispro 100 Unit/1 Ml) 0 unit SUBCUT WM&BEDTIME [facility]; Protocol Last Admin: 06/13/25 12:35 Dose: 8 unit Lactobacillus Acidophilus (Lactobacillus 1 Tablet) 1 tab PO BID [facility] Last Admin: 06/13/25 05:44 Dose: 1 tab Levothyroxine Sodium (Levothyroxine 100 Mcg Tablet) 100 mcg PO QAM [facility] Last Admin: 06/13/25 05:44 Dose: 100 mcg Lorazepam (Lorazepam 0.5 Mg Tablet) 0.5 mg PO Q4H PRN PRN Reason: ANXIETY Pantoprazole Sodium (Pantoprazole Dr 40 Mg Tablet) 40 mg PO DAILY [facility] Last Admin: 06/13/25 05:44 Dose: 40 mg Polyethylene Glycol (Polyethylene Glycol 3350 Pkt 17 Gm) 17 gm PO DAILY [facility] Last Admin: 06/13/25 05:43 Dose: 17 gm Prednisone (Prednisone 20 Mg Tablet) 40 mg PO DAILY [facility] Stop: 06/16/25 05:01 Last Admin: 06/13/25 05:44 Dose: 40 mg Pregabalin (Pregabalin 150 Mg Capsule) 150 mg PO TID [facility] Last Admin: 06/13/25 12:36 Dose: 150 mg Tolterodine Tartrate (Tolterodine 2 Mg Tablet) 2 mg PO QAM [facility] Last Admin: 06/13/25 05:44 Dose: 2 mg Vitals/I&O/Wt Last Vital Signs Temp 98.0 F 06/13/25 12:00 Pulse 71 06/13/25 12:00 Resp 24 H 06/13/25 12:00 BP 121/75 06/13/25 12:00 Pulse Ox 95 06/13/25 12:00 O2 Del Method Nasal Cannula 06/13/25 12:00 O2 Flow Rate 4 06/13/25 12:00 06/12/25 06/13/25 06/13/25 22:59 06:59 14:59 Intake Total 360 / 360 Output Total 2150 / 3400 750 / 4150 Balance -2150 / -3400 -750 / -4150 360 / 360 Weight last 48 hrs Weight 154 lb 1.65 oz Weight 150 lb Physical Exam 2 Narrative: GENERAL: The patient is alert and oriented times three. Not in any acute distress. HEENT: No significant pallor, icterus or lymphadenopathy.Oral cavity: There are no mucous membrane lesions. NECK: Trachea appears to be central. No masses noted. No JVD or thyromegaly appreciated. RESPIRATORY: Chest is symmetrical. No intercostals muscle retraction or any accessory muscle activation. Patient is extensive bilaterally coarse crackles and expiratory wheezing. Diminished breath sounds in the bases more so on the left side. BREASTS: Deferred. HEART: The heart sounds are normal. No S3 or S4. No significant murmurs. No pericardial rub ABDOMEN: No vessel pulsations or distention. No tenderness. No organomegaly appreciated. Bowel sounds are normally heard. : Deferred. RECTAL: Deferred. LYMPHATIC: No lymphadenopathy noted in the neck. EXTREMITIES: No significant edema or cyanosis MUSCULOSKELETAL: No acute joint deformities or swelling SKIN: There are no significant rashes or ecchymosis NEUROPSYCHIATRIC: The patient is alert and oriented x3. Appears to be in a good mood. No tremors or rigidity noted. Urinary Catheter Management: Vasquez: Cath Placed During This Visit: yes Reason for Continuing Indwelling Catheter: Accurate Measurement of Urinary Output in Critically Ill Patients Urinary Catheter Date of Insertion: 06/11/25 Urinary Catheter Time of Insertion: 20:17 Data 06/13/25 07:47 06/13/25 07:47 Other Labs: Laboratory Last Values WBC 94.74 10^3/uL (3.29-11.43) H* 06/13/25 07:47 RBC 3.76 10^6/uL (3.85-5.65) L 06/13/25 07:47 Hgb 10.50 g/dL (11.27-16.99) L 06/13/25 07:47 Hct 33.2 % (36-47) L 06/13/25 07:47 MCV 88.3 fl (85-98) 06/13/25 07:47 MCH 27.9 pg (27-33) 06/13/25 07:47 MCHC 31.6 g/dL (30-55) 06/13/25 07:47 RDW 15.9 % (12.1-15.1) H 06/13/25 07:47 Plt Count 203 10^3/cmm (157-399) 06/13/25 07:47 MPV 8.7 fL (7.4-10.4) 06/13/25 07:47 Neut % (Auto) 7.1 % 06/13/25 07:47 Lymph % (Auto) 86.2 % 06/13/25 07:47 Brooke % (Auto) 6.4 % 06/13/25 07:47 Eos % (Auto) 0.0 % 06/13/25 07:47 Baso % (Auto) 0.0 % 06/13/25 07:47 Neut # (Auto) 6.61 10^3/uL (1.8-7.7) 06/13/25 07:47 Lymph # (Auto) 81.7 10^3/uL (0.8-4.8) H 06/13/25 07:47 Brooke # (Auto) 6.1 10^3/uL (0.2-0.9) H 06/13/25 07:47 Eos # (Auto) 0.0 10^3/uL (0.0-0.8) 06/13/25 07:47 Baso # (Auto) 0.0 10^3/uL (0.0-0.1) 06/13/25 07:47 Nucleated RBC % (auto) 0 % 06/13/25 07:47 Total Counted 100 (0-100) 06/13/25 07:47 Atypical Lymphs % 90.0 % (0-5) H 06/13/25 07:47 Absolute Neutrophils 7.6 10^3/cmm (1.4-6.5) H 06/13/25 07:47 Segmented Neutrophils 8 % 06/13/25 07:47 Band Neutrophils 0.0 % 06/13/25 07:47 Absolute Lymphocytes 85.3 10^3/cmm (1.2-3.4) H 06/13/25 07:47 Lymphocytes (Manual) 0 % 06/13/25 07:47 Monocytes (Manual) 0.0 % 06/13/25 07:47 Absolute Monocytes 0.0 10^3/cmm (0.1-0.6) L 06/13/25 07:47 Eosinophils (Manual) 0 % 06/13/25 07:47 Absolute Eosinophils 0.0 10^3/cmm (0.0-0.7) 06/13/25 07:47 Basophils (Manual) 0.0 % 06/13/25 07:47 Absolute Basophils 0.0 10^3/cmm (0.0-0.2) 06/13/25 07:47 Nucleated RBCs 1.0 /100WBC (0-1) 06/13/25 07:47 Nucleated RBCs # 0.0 /100WBC 06/13/25 07:47 Blast Cells 1 % (0-0) H 06/13/25 07:47 Platelet Estimate Normal (Normal) 06/13/25 07:47 Sodium 142 mmol/L (136-145) 06/13/25 07:47 Potassium 3.7 mmol/L (3.5-5.1) 06/13/25 07:47 Chloride 101 mmol/L (98-107) 06/13/25 07:47 Carbon Dioxide 30 mmol/L (22-29) H 06/13/25 07:47 Anion Gap 14.7 (5-19) 06/13/25 07:47 BUN 27 mg/dL (8-23) H 06/13/25 07:47 Creatinine 1.0 mg/dL (0.5-0.9) H 06/13/25 07:47 GFR Calculation Not Reportable 06/13/25 07:47 Glucose 192 mg/dL (65-115) H 06/13/25 07:47 POC Glucose 281 mg/dL (70-110) H 06/13/25 10:53 Calculated Osmolality 304 mOsm/kg (285-295) H 06/13/25 07:47 Calcium 8.7 mg/dL (8.5-10.5) 06/13/25 07:47 Magnesium 2.5 mg/dL (1.7-2.3) H 06/11/25 21:00 Total Bilirubin 0.4 mg/dL (0.15-1.2) 06/13/25 07:47 AST 14 U/L (0-32) 06/13/25 07:47 ALT 8 U/L (0-33) 06/13/25 07:47 Alkaline Phosphatase 93 U/L (35-105) 06/13/25 07:47 Troponin T Baseline 16 ng/L (0-10) H 06/11/25 18:52 Troponin T 120 Minute 17.82 ng/L (0-10) H 06/11/25 21:00 Delta Troponin T 1.82 ABS# (0-10) 06/11/25 21:00 Troponin T Hi Sens 6Hr 15.16 ng/L (0-10) H 06/12/25 01:18 Troponin T Hi Sens 6Hr Delta -0.84 ng/L (0-12) L 06/12/25 01:18 NT-Pro-B Natriuret Pep 222 pg/mL (0-450) 06/13/25 07:47 Total Protein 6.5 g/dL (6.6-8.7) L 06/13/25 07:47 Albumin 3.7 g/dL (3.5-5.2) 06/13/25 07:47 Globulin 2.8 g/dL (1.3-4.6) 06/13/25 07:47 Procalcitonin 0.14 ng/mL (0-0.5) 06/11/25 18:52 TSH 3.68 uIU/mL (0.27-4.20) 06/12/25 08:31 Urine Color Yellow (Yellow) 06/11/25 19:28 Urine Appearance Clear (CLEAR) 06/11/25 19:28 Urine pH 6.0 (5-7) 06/11/25 19:28 Ur Specific [place] 1.010 (1.005-1.030) 06/11/25 19:28 Urine Protein Trace (Negative) A 06/11/25 19: Urine Glucose (UA) Negative (Normal) 06/11/25 19: Urine Ketones Trace (Negative) 06/11/25 19: Urine Blood Trace (Negative) A 06/11/25 19: Urine Nitrate Positive (Negative) A 06/11/25 19: Urine Bilirubin Negative (Negative) 06/11/25 19: Urine Urobilinogen 1.0 mg/dL (Negative) 06/11/25 19: Ur Leukocyte Esterase Trace (Negative) A 06/11/25 19:28 Urine RBC 0-2 /hpf (0-2) 06/11/25 19:28 Urine WBC 21-50 /hpf (0-5) H 06/11/25 19:28 Ur Squamous Epith Cells 0-5 /hpf (0-5) 06/11/25 19:28 Amorphous Sediment Not Reportable 06/11/25 19:28 Urine Bacteria 4+ /hpf (NONE) H 06/11/25 19:28 Hyaline Casts 0-4 /lpf H 06/11/25 19:28 Influenza A (PCR) Negative (Negative) 06/11/25 19:16 Influenza Type B (PCR) Negative (Negative) 06/11/25 19:16 RSV (PCR) Negative (Negative) 06/11/25 19:16 SARS-CoV-2 (PCR) Negative (Negative) 06/11/25 19:16 Micro: Microbiology 06/11/25 19:28 Urine Culture - Final Urine,Clean Catch Escherichia coli A&P Assessment and plan 1. SOB (shortness of breath): Patient is shortness of breath is mostly from the reactive airway disease/COPD exacerbation. Her BNP is in the normal range. Chances of this being related to the heart failure is very low. She may have respiratory infection causing the pleural effusion as well. Patient had a CT of the chest today. The results are pending. Continue to optimize the above and go dilators. 2. Atherosclerosis of [place] coronary artery of [place] heart without angina pectoris: Patient had a PCI of the mid LAD in November of this year. Currently she has no chest pain. No ischemic EKG changes. No evidence of any acute myocardial injury. At this point, she may not require any specific intervention. 3. Presence of permanent cardiac pacemaker: The patient function appears to be appropriate. Continue on the current monitoring schedule 4. Mixed hyperlipidemia: May continue on the current management. Seems to be tolerating the medication so far well. 5. Type 2 diabetes mellitus with hyperglycemia, with long-term current use of insulin: Aggressive management of the diabetes would be appropriate. The blood sugar seems to be coming down. 6. 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 Consider hematology input 7. Pleural effusion: Infective etiology need to be looked into. Awaiting CT scan report. Plan: May continue on the current management for the time being. Continue the bronchodilator treatment/antibiotics Check on the CT of the chest Cardiac forbes she seems to be stable PDMP PDMP Reviewed: Not Reviewed Attestations 2 Medical Necessity Statement*: Deferred to the primary Coding Level of Care Code 04991 Diagnoses SOB (shortness of breath) R06.02 Atherosclerosis of [place] coronary artery of [place] heart without angina pectoris I25.10 [place] vs. transplanted heart: [place] heart Presence of permanent cardiac pacemaker Z95.0 Mixed hyperlipidemia E78.2 Hyperlipidemia type: mixed hyperlipidemia Type 2 diabetes mellitus with hyperglycemia, with long-term current use of insulin E11.65; Z79.4 Diabetes mellitus type: type 2 Chronic lymphocytic leukemia B-cell type not having achieved remission C91.10 Pleural effusion J90
[2025-06-13] MEDS: iohexol 350 mg/mL 500 mL Btl (per mL) IV (14:00)
[2025-06-13] MEDS: ATORVASTATIN 20 MG TABLET PO (22:17)
[2025-06-14] VITALS (10 sets, daily range): BP systolic 115–145; BP diastolic 58–80; PULSE 60–71; RESP 18–24; TEMP 36.7–37.5; O2SAT 90–96; BMI 27.1; BMI 26.7
[2025-06-14 03:11] LABS: Hematocrit 31.3 % (36-47); Hemoglobin 9.80 g/dL (11.27-16.99); Mean Corpuscular HGB Conc 31.3 g/dL (30-55); Mean Corpuscular Hemoglobin 27.8 pg (27-33); Mean Corpuscular Volume 88.7 fl (85-98); Nucleated Red Blood Cells % 0 %; Platelet Count 225 10^3/cmm (157-399); Red Blood Count 3.53 10^6/uL (3.85-5.65)
[2025-06-14 03:19] LABS: Slide Review Slide Review Perform
[2025-06-14 03:20] LABS: White Blood Count 95.16 10^3/uL (3.29-11.43)
[2025-06-14 03:29] LABS: Alanine Aminotransferase 10 U/L (0-33); Albumin Level 3.8 g/dL (3.5-5.2); Alkaline Phosphatase 99 U/L (35-105); Anion Gap 12.1 (5-19); Aspartate Amino Transferase 15 U/L (0-32); Blood Urea Nitrogen 28 mg/dL (8-23); Calcium 9.3 mg/dL (8.5-10.5); Carbon Dioxide 35 mmol/L (22-29); Chloride 96 mmol/L (98-107); Globulin 2.7 g/dL (1.3-4.6); Glucose 222 mg/dL (65-115); Osmolality Calculated 300 mOsm/kg (285-295); Potassium 4.1 mmol/L (3.5-5.1); Sodium 139 mmol/L (136-145); Total Protein 6.5 g/dL (6.6-8.7)
[2025-06-14] MEDS: FUROsemide 10 mg/mL SDV 4mL 40 MG IVP (04:51)
[2025-06-14] MEDS: cefTRIAXone 1,000 mg SDV 1000 MG IVP (04:51)
[2025-06-14] MEDS: lactobacillus 1 Tablet 1 TAB PO (04:52)
[2025-06-14] MEDS: polyethylene glycol 3350 Pkt 17 gm PO (04:53)
[2025-06-14] MEDS: insulin glargine 100 units/1 mL 34 UNIT SUBCUT (04:53)
--- NOTE | 2025-06-14 10:09 | P.PN_ITS ---
Vitals/I&O/Wt Last Vital Signs Temp 98.0 F 06/14/25 07:37 Pulse 66 06/14/25 08:06 Resp 18 06/14/25 07:52 BP 145/73 06/14/25 07:37 Pulse Ox 96 06/14/25 07:52 O2 Del Method Nasal Cannula 06/14/25 07:52 O2 Flow Rate 4 06/14/25 07:52 06/13/25 06/14/25 06/14/25 22:59 06:59 14:59 Output Total 1250 / 2000 1100 / 3100 Balance -1250 / -1640 -1100 / -2740 Weight last 48 hrs Weight 68.5 kg Weight 69.5 kg Weight 69.9 kg Physical Exam 2 Urinary Catheter Management: Vasquez: Cath Placed During This Visit: yes Reason for Continuing Indwelling Catheter: Accurate Measurement of Urinary Output in Critically Ill Patients Urinary Catheter Date of Insertion: 06/11/25 Urinary Catheter Time of Insertion: 20:17 Data 06/14/25 02:34 06/14/25 02:34 Micro: Microbiology 06/11/25 19:28 Urine Culture - Final Urine,Clean Catch Escherichia coli A&P PDMP PDMP Reviewed: Not Reviewed Coding Level of Care Code Acute Code for Chg Fwd
--- NOTE | 2025-06-14 14:11 | PM.DCS ---
Discharge Providers Date of Admission: 06/11/25 20:39 Date of Discharge: June 14, 2025 Attending Provider at Admission: Avtar Grant MD Attending Provider at Discharge: Anthony Timmons MD Primary Care Provider: MARLO Sharma Diagnoses at Discharge Discharge Diagnosis 1. Acute hypoxemic respiratory failure: 2. Acute exacerbation of chronic obstructive airways disease: 3. E. coli UTI: 4. Atherosclerosis of [place] coronary artery of [place] heart without angina pectoris: 5. Presence of permanent cardiac pacemaker: 6. Mixed hyperlipidemia: 7. Type 2 diabetes mellitus with hyperglycemia, with long-term current use of insulin: 8. 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 Pleural effusion: 10. Hypothyroidism: 11. Seropositive rheumatoid arthritis of multiple sites: 12. Essential hypertension, benign: Reason for Visit Reason for Visit: SOB\Swollen Legs Brief History: Patient presented with difficulty breathing. She was initially thought to have CHF exacerbation, and started on some IV diuresis with Lasix. Given findings of possible COPD exacerbation, steroids, antibiotics, as well as DuoNeb orders were started. Other ome medications were used to treat ongoing acute medical problems. Given finding of hypoxia, patient was put on oxygen supplementation via nasal cannula. Hospital Course Hospital Course As at this morning, we are able to only wean patient's oxygen down to 3 to 4 L/min. She qualified for home oxygen, which was delivered today. In the meantime, land surveying survey worker was consulted, who ruled out any significant cardiac etiology. Urine culture grew E. coli, which was pansensitive to all antibiotics tested, including Rocephin and other cephalosporins. Given good response to above treatment, patient therefore requested for discharge. He states she is therefore discharged today on oral antibiotics, and other medications, as mentioned above. Physical Exam Narrative: General: Awake and alert patient. Pleasant elderly patient. Resp: No obvious respiratory distress; stable bilateral expiratory wheezes with prolonged expiratory phase.. Skin: No obvious rashes or new skin lesions. All other physical findings essentially within normal limits. Urinary Catheter Management: Vernon: Cath Placed During This Visit: yes Reason for Continuing Indwelling Catheter: Accurate Measurement of Urinary Output in Critically Ill Patients Urinary Catheter Date of Insertion: 06/11/25 Urinary Catheter Time of Insertion: 20:17 Discharge Data Studies Completed and Pending Completed Studies During Hospitalization Category Date Time Status CTA chest [CT angio chest PE protcl [id number]] Routine Cat Scan 06/13/25 10:25 Completed XR chest 1V portable [id number] Stat Exams 06/11/25 18:27 Completed CV. echo complete* [id number] Routine Ultrasound 06/11/25 23:14 Completed [place] chest [id number] Routine Ultrasound 06/12/25 23:14 Completed Pending at discharge Category Date Time Status Sputum Culture Routine Lab 06/13/25 08:45 Results Radiology Impressions Chest X-Ray 06/11/25 18:27 IMPRESSION: [id number] left and small right pleural effusions. Chest Ultrasound 06/12/25 23:14 IMPRESSION: A small/medium left-sided pleural effusion is present. Chest CTA 06/13/25 10:25 1. No central or segmental pulmonary emboli. Evaluation of the more distal branches is limited 2. Mediastinal, hilar, and axillary adenopathy. 3. Perivertebral soft tissue thickening or mass at the left T10-T12 space. 4. Left lower lobe consolidation. Left lower lobe pleural effusion. Urine culture grew > 100,000 CFU/ml. of E coli that was pansensitive. Vitals Last Vital Signs Temp 98.0 F 06/14/25 07:37 Pulse 71 06/14/25 11:46 Resp 24 H 06/14/25 11:46 BP 145/66 06/14/25 11:46 Pulse Ox 90 06/14/25 11:46 O2 Del Method Room Air 06/14/25 11:46 O2 Flow Rate 4 06/14/25 11:18 Discharge Plan Discharge Patient Disposition: Home Health Service Condition: Stable Prescriptions: New metolazone 10 mg tablet 5 - 10 mg PO DAILY PRN (Reason: Fluid retention) Qty: 30 0RF cephalexin 500 mg capsule 500 mg PO Q8H Qty: 15 0RF prednisone 5 mg tablet See Rx Instructions .ROUTE .COMPLEX Qty: 30 0RF Rx Instructions: prednisone 5 mg: take 6 tablets (30 mg) on Day 1; 5 tablets (25 mg) on Day 2; then decrease by 1 tablet every day until finished Continued (DME) Roho Wheelchair Coushion [id number] See Rx Instructions .Route .MEDSUPPLY Qty: 1 0RF Rx Instructions: use in wheelchair or powerchair (DME) [id number] Power Chair with lift See Rx Instructions .Route .MEDSUPPLY Qty: 1 0RF Rx Instructions: use daily for mobility 99 months albuterol sulfate 90 mcg/actuation HFA aerosol inhaler 2 puff INHALATION QID PRN (Reason: Shortness Of Breath) Qty: 6.7 1RF insulin aspart U-100 [Novolog FlexPen U-100 Insulin] 100 unit/mL (3 mL) insulin pen See Rx Instructions SUBCUT TID Qty: 15 2RF Rx Instructions: Inject per sliding scale twice daily as needed for high blood sugars. nitroglycerin 0.4 mg tablet, sublingual 0.4 mg sublingual Q5M PRN (Reason: chest pain) 30 Days Qty: 30 3RF Rx Instructions: until response; do not exceed 3 doses per episode cephalexin 500 mg capsule 500 mg PO TID Qty: 30 0RF levothyroxine 100 mcg tablet 100 mcg PO QAM Qty: 90 1RF Breztri Aerosphere 160-9-4.8 mcg/actuation HFA aerosol inhaler 2 inh inhalation BID PRN (Reason: Shortness Of Breath) Qty: 10.7 1RF cyclobenzaprine 10 mg tablet 10 mg PO .at bedtime Qty: 90 1RF furosemide 20 mg tablet 20 mg PO QAM Qty: 90 1RF simvastatin 20 mg tablet 20 mg PO BEDTIME Qty: 90 1RF diazepam [Valium] 2 mg tablet 2 mg PO TID PRN (Reason: muscle spasm) Qty: 90 5RF prednisone 10 mg tablet See Rx Instructions PO .COMPLEX PRN (Reason: joint pain) Qty: 30 1RF Rx Instructions: Take 1 or 2 tablets by mouth daily up to 7 days as needed for joint pain flare. prednisone 5 mg tablet 5 mg PO DAILY Qty: 90 1RF insulin glargine U-300 conc [Toujeo Max U-300 SoloStar] 300 unit/mL (3 mL) insulin pen 40 unit SUBCUT DAILY Qty: 12 2RF lidocaine 5 % adhesive patch,medicated 1 patch topical [id number] Qty: 90 1RF (DME) FreeStyle William 2 Sensor Kit See Rx Instructions .ROUTE .MEDSUPPLY Qty: 7 11RF Rx Instructions: change every 14 days pregabalin 150 mg capsule 150 mg PO TID Qty: 270 1RF (DME) Power chair repair See Rx Instructions .Route .MEDSUPPLY Qty: 1 0RF Rx Instructions: Repair power chair and maintenance (DME) FreeStyle William 2 Louise Misc See Rx Instructions .ROUTE .MEDSUPPLY Qty: 1 0RF Rx Instructions: As directed isosorbide mononitrate 30 mg tablet extended release 24 hr 30 mg PO DAILY Qty: 90 3RF aspirin 81 mg tablet,delayed release (DR/EC) 81 mg PO QAM Cranberry Plus Vitamin C 140-100 mg Capsule 1 cap PO QAM cholecalciferol (vitamin D3) [Vitamin D3] 125 mcg (5,000 unit) Tablet 5,000 unit PO QAM clopidogrel [Plavix] 75 mg tablet 75 mg PO DAILY Qty: 90 3RF polyethylene glycol 3350 [Miralax] 17 gram/dose powder 4 g PO DAILY Qty: 119 0RF Line Therapist OK for DC: Cardiology Discharge Order = DC NOW: Discharge Order (Routine); Ordered 06/14/25 Ordered By: Anthony Gardner Ambulatory Orders: DME: Commode (Order) Location: None Selected Ordered By: Maddi Fuentes DME: Oxygen (Order) Location: None Selected Ordered By: Maddi Fuentes Referrals: [facility] [Outside] Adam Anguiano FNP-C [Primary Care Provider, Family Practice] - 06/26/25 10:40 am Paulina Beverly APRN [Referring, Urology] - 06/16/25 9:30 am Referral Note: Urinary retention, vernon in place Please be at the office 20 mins early to fill out new patient paper work Paulina Deal FNP [Nurse Practitioner, Cardiology] - 07/07/25 8:30 am Discharge Diet: Cardiac Discharge Activity: Resume usual activity Patient Instructions: COPD, Cephalexin (By mouth), Metolazone (By mouth), Prednisone (By mouth), Heart Failure (DC), Using Oxygen at Home (DC), Aspiration Precautions (DC), Shortness of Breath (DC), Acute Respiratory Failure (GEN), Opioid Safety, Pneumonia Stoplight, Patient Portal & Rory Instructions Activity Restrictions/Additional Instructions: Follow up with PCP within 5-7 days/as needed. Use oxygen at 3-4 L/min to keep O2 sat up to 90-94%. Discharge Attestations Time Spent in Discharge Care*: greater than 30 min Quality Metrics Clinical Quality Measures [ No reported AMI, CVA or VTE this stay] Coding Level of Care Code Acute Code for Chg Fwd Diagnoses Acute hypoxemic respiratory failure J96.01 Acute exacerbation of chronic obstructive airways disease J44.1 E. coli UTI N39.0; B96.20 Atherosclerosis of [place] coronary artery of [place] heart without angina pectoris I25.10 [place] vs. 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
--- NOTE | 2025-06-14 15:33 | PC.NURSE ---
Bladder scan pt Pt stated she could not urinate an hour after and a half after the vernon removal, pt went to bedside commode unable to pee. applied warm compress and bladder scan 37 ml.
--- NOTE | 2025-06-14 15:55 | PC.NURSE ---
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 Notified Dr Timmons about her concerns and pt's only has 37 ml in bladder scan and unable to urinate yet in the toilet. he speak to the pt and son in the room.
== END 2025-06-14 16:43 | disposition home health service (06) | DRG 189 ==
LOC: ER 21:26 → ER IP 21:31 → CSU 06-12 05:57
PROVIDERS: Clinical Nurse Specialist Acute Care; Internal Medicine Cardiovascular Disease; Registered Nurse; Admitting Provider Family Medicine; Emergency Provider Family Medicine; PCP Nurse Practitioner; Visit Provider Family Medicine
DX: J96.01 Acute respiratory failure with hypoxia (principal); J44.1 Chronic obstructive pulmonary disease with (acute) exacerbation; C91.10 Chronic lymphocytic leukemia of B-cell type not having achieved remission; J90 Pleural effusion, not elsewhere classified; N39.0 Urinary tract infection, site not specified; B96.20 Unspecified Escherichia coli [E. coli] as the cause of diseases classified elsewhere; I25.10 Atherosclerotic heart disease of native coronary artery without angina pectoris; E78.2 Mixed hyperlipidemia; E11.40 Type 2 diabetes mellitus with diabetic neuropathy, unspecified; E11.65 Type 2 diabetes mellitus with hyperglycemia; Z79.4 Long term (current) use of insulin; M05.9 Rheumatoid arthritis with rheumatoid factor, unspecified; I11.0 Hypertensive heart disease with heart failure; I50.9 Heart failure, unspecified; G70.00 Myasthenia gravis without (acute) exacerbation; E89.0 Postprocedural hypothyroidism; F41.8 Other specified anxiety disorders; Z99.3 Dependence on wheelchair; Z95.0 Presence of cardiac pacemaker; Z79.51 Long term (current) use of inhaled steroids; Z79.82 Long term (current) use of aspirin; Z79.02 Long term (current) use of antithrombotics/antiplatelets; Z85.828 Personal history of other malignant neoplasm of skin; Z87.891 Personal history of nicotine dependence; Z87.01 Personal history of pneumonia (recurrent); Z87.440 Personal history of urinary (tract) infections; Z90.49 Acquired absence of other specified parts of digestive tract; Z90.710 Acquired absence of both cervix and uterus
CPT/HCPCS: 36415; 36416; 51702; 51798; 71045; 71275; 76604; 80048; 80053; 81001; 82962; 83735; 83880; 84145; 84443; 84484; 85007; 85025; 87070; 87077; 87086; 87186; 87637; 93005; 93306; 94640; 94760; 96372; 96374; 96375; 97161; 97167; 97535; 99285; J0696; J1650; J1815; J1938; J7512; J7626; J9999

== ENCOUNTER → 2025-06-25 10:35 | Outpatient (BNVA) | payer MEDICARE, OTHER, SELFPAY | PROVIDERS: PCP Nurse Practitioner; Visit Provider Internal Medicine Cardiovascular Disease | DX: Z45.018 Encounter for adjustment and management of other part of cardiac pacemaker (principal) | CPT/HCPCS: 93296 ==

== ENCOUNTER 2025-07-02 14:58 | Oncology outpatient (recurring) (ONCR) | payer MEDICARE, OTHER, SELFPAY ==
--- NOTE | 2025-07-02 15:45 | USR_ITS ---
PROCEDURE INFORMATION: Exam: US Duplex Bilateral Lower Extremity Arteries Exam date and time: 07/02/2025 3:19 PM Age: 85 years old Clinical indication: Condition or disease; Peripheral vascular disease; Additional info: I73.9 - peripheral vascular disease, unspecified TECHNIQUE: Imaging protocol: Real-time ultrasound scan of the arteries of the bilateral lower extremities with 2-D mckeon scale, color Doppler flow and spectral waveform analysis. Images documented and saved. COMPARISON: US soft tissue/extremity [id number] 10/12/2022 11:59 AM FINDINGS: Presence of plaque common femoral arteries. Right common femoral artery: No occlusion or significant stenosis. Normal waveform. Right superficial femoral artery: No occlusion or significant stenosis. Normal waveform. Right popliteal artery: No occlusion or significant stenosis. Normal waveform. Right calf/foot arteries: No occlusion or significant stenosis in the visualized arteries. Normal waveforms. Dorsalis pedis artery is patent. Left common femoral artery: No occlusion or significant stenosis. Normal waveform. Left superficial femoral artery: No occlusion or significant stenosis. Normal waveform. Left popliteal artery: No occlusion or significant stenosis. Normal waveform. Left calf/foot arteries: No occlusion or significant stenosis in the visualized arteries. Normal waveforms. Dorsalis pedis artery [place] patent. US/[place] [id number] IMPRESSION: Mild plaque. No significant stenosis or occlusion.
== END 2025-07-09 23:59 | disposition home or self-care (01) ==
LOC: ONCMED 14:59
PROVIDERS: PCP Nurse Practitioner; Visit Provider Internal Medicine Medical Oncology
DX: C91.10 Chronic lymphocytic leukemia of B-cell type not having achieved remission (principal); G70.00 Myasthenia gravis without (acute) exacerbation; M21.379 Foot drop, unspecified foot; R10.30 Lower abdominal pain, unspecified; R53.1 Weakness; M16.12 Unilateral primary osteoarthritis, left hip; M79.89 Other specified soft tissue disorders; Z79.899 Other long term (current) drug therapy; Z87.891 Personal history of nicotine dependence; I73.9 Peripheral vascular disease, unspecified
CPT/HCPCS: 93925